=== PATIENT | male | born 1970 | race Caucasian/White ===

== ENCOUNTER 2018-06-22 14:57 | Inpatient (IN) | payer SELFPAY ==
[~2018-06-22] VITALS: Ht 185.4 cm; Wt 91.7 kg
[2018-06-22] VITALS (9 sets, daily range): BP systolic 116–165; BP diastolic 90–116
[2018-06-22] MEDS ORDERED: ONDANSETRON PF 4 MG/2 ML VIAL. IM ONE (15:15)
[2018-06-22] MEDS ORDERED: IV NORMAL SALINE 1000ML BAG 1,000 ML IV ONE (15:15)
[2018-06-22 15:28] LABS: BASO % 0 % (0-3); EOS % 0 % (0-3); LYMPH # 1.4 x10^3/uL (1.0-4.8); LYMPH % 8 % (24-48); MEAN CORPUSCULAR HEMOGLOBIN 31 pg (25-35); MEAN CORPUSCULAR HGB CONC 33 g/dL (31-37); MEAN CORPUSCULAR VOLUME 94 fL (79-100); MONO # 0.8 x10^3/uL (0.0-1.1); MONO % 5 % (0-9); NEUT # 14.5 x10^3uL (1.8-7.7); NEUT % 87 % (31-73); PLATELET COUNT 445 x10^3/uL (140-400); RED CELL DISTRIBUTION WIDTH 16.4 % (11.5-14.5); WHITE BLOOD COUNT 16.8 x10^3/uL (4.0-11.0)
[2018-06-22] MEDS ORDERED: DEXAMETHASONE SOD PHOS 4 MG/ML VIAL IV ONE (15:30)
[2018-06-22 15:32] LABS: HEMATOCRIT 17.8 % (39.0-53.0); HEMOGLOBIN 5.8 g/dL (13.0-17.5)
--- NOTE | 2018-06-22 15:32 | PHYS DOC ---
Past Medical History Past Medical History: Other Additional Past Medical Histor: KYLER'S DISEASE (TAHIRA BUNDY) Past Surgical History: Cervical Fusion, Other Additional Past Surgical Histo: KNEE (TAHIRA BUNDY) Alcohol Use: None Drug Use: None (TAHIRA BUNDY) Adult General Chief Complaint Chief Complaint: SYNCOPE HPI HPI Patient is a 47 year old male whom presents to the ED complaining of dizziness and falls over the last week. Patient's friend is at bedside with him and states he has been homeless for the last 3 weeks. States he was staying in a homeless alf. Patient has a history of Terrebonne's disease and reports he has been taking his cortef as prescribed. Friend states that he's been very depressed over the last few weeks. Has a history of bipolar and schizophrenia. Friend at bedside is concerned he may have tried to commit suicide over the last week but is unsure. Patient reports that he has been vomiting and having diarrhea for the last 2 weeks. States too many times to count. No blood in stool. Patient appears pale and is tachycardic on exam. Denies suicidal/homicidal ideation, fever, chest pain, shortness of breath, abdominal pain, head/neck injury, or use of blood thinners. (TAHIRA BUNDY) Review of Systems Review of Systems Constitutional: Denies fever or chills [] Eyes: Denies change in visual acuity, redness, or eye pain [] HENT: Denies nasal congestion or sore throat [] Respiratory: Denies cough or shortness of breath [] Cardiovascular: No additional information not addressed in HPI [] GI: Complains of vomiting and diarrhea. Denies abdominal pain, bloody stools. : Denies dysuria or hematuria [] Musculoskeletal: Denies back pain or joint pain [] Integument: Denies rash or skin lesions [] Neurologic: Denies headache, focal weakness or sensory changes [] All other systems were reviewed and found to be within normal limits, except as documented in this note. (TAHIRA BUNDY) Current Medications Current Medications Current Medications Medications (Trade) Dose Ordered Sig/Essence Start Time Stop Time Status Last Admin Dose Admin Calcium Gluconate (Calcium Gluconate) 3,000 mg 1X ONCE 06/22/18 16:00 06/22/18 16:01 Dexamethasone Sodium Phosphate (Decadron) 10 mg 1X ONCE 06/22/18 15:30 06/22/18 15:40 DC 06/22/18 15:54 10 MG Dextrose (Dextrose 50%-Water Syringe) 25 gm 1X ONCE 06/22/18 16:00 06/22/18 16:01 Info (CONTRAST GIVEN -- Rx MONITORING) 1 each PRN DAILY PRN 06/22/18 16:00 06/24/18 15:59 Insulin Human Regular (HumuLIN R VIAL) 10 unit 1X ONCE 06/22/18 16:00 06/22/18 16:01 Iohexol (Omnipaque 300 Mg/ml) 75 ml 1X ONCE 06/22/18 16:00 06/22/18 16:01 Ondansetron HCl (Zofran) 4 mg 1X ONCE 06/22/18 15:15 06/22/18 15:40 DC 06/22/18 15:54 4 MG Sodium Polystyrene Sulfonate (Kayexalate) 60 gm 1X ONCE 06/22/18 16:00 06/22/18 16:01 Sodium Bicarbonate (Sodium Bicarb Adult 8.4% Syr) 50 meq 1X ONCE 06/22/18 16:00 06/22/18 16:01 Sodium Chloride 1,000 ml @ 100 mls/hr Q10H 06/22/18 15:50 06/23/18 01:49 (BRISA XIAO MD) Allergies Allergies Allergies Coded Allergies Type Severity Reaction Last Updated Verified No Known Drug Allergies 06/22/18 No (BRISA XIAO MD) Physical Exam Physical Exam Constitutional: no acute distress, pale. [] HENT: Normocephalic, atraumatic Eyes: PERRLA, EOMI, conjunctiva normal, no discharge. [] Neck: Normal range of motion, no tenderness, supple, no stridor. [] Cardiovascular:Tachycardic, regular rhythm, no murmur [] Lungs & Thorax: Bilateral breath sounds clear to auscultation [] Abdomen: Bowel sounds normal, soft, mild diffuse abdominal tenderness, no masses, no pulsatile masses. [] Skin: Warm, dry, no erythema, no rash. [] Back: No tenderness, no CVA tenderness. [] Extremities: No tenderness, no cyanosis, no clubbing, ROM intact, no edema. [] Neurologic: Alert and oriented X 3, normal motor function, normal sensory function, no focal deficits noted. [] Psychologic: Affect normal, judgement normal, mood normal. [] (TAHIRA BUNDY) Current Patient Data Vital Signs Vital Signs Date Time Temp Pulse Resp B/P (MAP) Pulse Ox O2 Delivery O2 Flow Rate FiO2 06/22/18 15:13 97.7 113 20 145/93 (110) 91 Room Air 97.7 (BRISA XIAO MD) Lab Values Laboratory Tests Test 06/22/18 15:10 White Blood Count 16.8 x10^3/uL (4.0-11.0) H Red Blood Count 1.90 x10^6/uL (4.30-5.70) L Hemoglobin 5.8 g/dL (13.0-17.5) *L Hematocrit 17.8 % (39.0-53.0) *L Mean Corpuscular Volume 94 fL (79-100) Mean Corpuscular Hemoglobin 31 pg (25-35) Mean Corpuscular Hemoglobin Concent 33 g/dL (31-37) Red Cell Distribution Width 16.4 % (11.5-14.5) H Platelet Count 445 x10^3/uL (140-400) H Neutrophils (%) (Auto) 87 % (31-73) H Lymphocytes (%) (Auto) 8 % (24-48) L Monocytes (%) (Auto) 5 % (0-9) Eosinophils (%) (Auto) 0 % (0-3) Basophils (%) (Auto) 0 % (0-3) Neutrophils # (Auto) 14.5 x10^3uL (1.8-7.7) H Lymphocytes # (Auto) 1.4 x10^3/uL (1.0-4.8) Monocytes # (Auto) 0.8 x10^3/uL (0.0-1.1) Eosinophils # (Auto) 0.0 x10^3/uL (0.0-0.7) Basophils # (Auto) 0.0 x10^3/uL (0.0-0.2) Platelet Estimate Pending Sodium Level 139 mmol/L (136-145) Potassium Level 7.0 mmol/L (3.5-5.1) *H Chloride Level 105 mmol/L (98-107) Carbon Dioxide Level 13 mmol/L (21-32) L Anion Gap 21 (6-14) H Blood Urea Nitrogen 120 mg/dL (8-26) H Creatinine 17.8 mg/dL (0.7-1.3) H Estimated GFR (Cockcroft-Gault) 2.9 BUN/Creatinine Ratio 7 (6-20) Glucose Level 122 mg/dL (70-99) H Calcium Level 8.1 mg/dL (8.5-10.1) L Magnesium Level 2.6 mg/dL (1.8-2.4) H Total Bilirubin 0.6 mg/dL (0.2-1.0) Aspartate Amino Transferase (AST) 14 U/L (15-37) L Alanine Aminotransferase (ALT) 18 U/L (16-63) Alkaline Phosphatase 107 U/L (46-116) Troponin I Quantitative 0.111 ng/mL (0.000-0.055) Total Protein 8.0 g/dL (6.4-8.2) Albumin 2.7 g/dL (3.4-5.0) L Albumin/Globulin Ratio 0.5 (1.0-1.7) L Laboratory Tests 06/22/18 15:10 Laboratory Tests 06/22/18 15:10 (BRISA XIAO MD) Lab Values Laboratory Tests Test 06/22/18 15:10 White Blood Count 16.8 x10^3/uL (4.0-11.0) H Red Blood Count 1.90 x10^6/uL (4.30-5.70) L Hemoglobin 5.8 g/dL (13.0-17.5) *L Hematocrit 17.8 % (39.0-53.0) *L Mean Corpuscular Volume 94 fL (79-100) Mean Corpuscular Hemoglobin 31 pg (25-35) Mean Corpuscular Hemoglobin Concent 33 g/dL (31-37) Red Cell Distribution Width 16.4 % (11.5-14.5) H Platelet Count 445 x10^3/uL (140-400) H Neutrophils (%) (Auto) 87 % (31-73) H Lymphocytes (%) (Auto) 8 % (24-48) L Monocytes (%) (Auto) 5 % (0-9) Eosinophils (%) (Auto) 0 % (0-3) Basophils (%) (Auto) 0 % (0-3) Neutrophils # (Auto) 14.5 x10^3uL (1.8-7.7) H Lymphocytes # (Auto) 1.4 x10^3/uL (1.0-4.8) Monocytes # (Auto) 0.8 x10^3/uL (0.0-1.1) Eosinophils # (Auto) 0.0 x10^3/uL (0.0-0.7) Basophils # (Auto) 0.0 x10^3/uL (0.0-0.2) Segmented Neutrophils % 87 % (35-66) H Lymphocytes % 11 % (24-48) L Monocytes % 2 % (0-10) Nucleated Red Blood Cells 2 Platelet Estimate Adequate (ADEQUATE) Polychromasia Slight Anisocytosis Slight Sodium Level 139 mmol/L (136-145) Potassium Level 7.0 mmol/L (3.5-5.1) *H Chloride Level 105 mmol/L (98-107) Carbon Dioxide Level 13 mmol/L (21-32) L Anion Gap 21 (6-14) H Blood Urea Nitrogen 120 mg/dL (8-26) H Creatinine 17.8 mg/dL (0.7-1.3) H Estimated GFR (Cockcroft-Gault) 2.9 BUN/Creatinine Ratio 7 (6-20) Glucose Level 122 mg/dL (70-99) H Lactic Acid Level 3.2 mmol/L (0.4-2.0) H Calcium Level 8.1 mg/dL (8.5-10.1) L Magnesium Level 2.6 mg/dL (1.8-2.4) H Total Bilirubin 0.6 mg/dL (0.2-1.0) Aspartate Amino Transferase (AST) 14 U/L (15-37) L Alanine Aminotransferase (ALT) 18 U/L (16-63) Alkaline Phosphatase 107 U/L (46-116) Troponin I Quantitative 0.111 ng/mL (0.000-0.055) NS-Uza-X-Type Natriuretic Peptide > 68934 pg/mL (0-124) H Total Protein 8.0 g/dL (6.4-8.2) Albumin 2.7 g/dL (3.4-5.0) L Albumin/Globulin Ratio 0.5 (1.0-1.7) L Ethyl Alcohol Level < 3 mg/dL (0-10) Laboratory Tests 06/22/18 15:10 Laboratory Tests 06/22/18 15:10 (TAHIRA BUNDY) EKG EKG []EKG shows Sinus tachycardia at 113 bpm. No STEMI. (TAHIRA BUNDY) Radiology/Procedures Radiology/Procedures []PROCEDURE: CT ABDOMEN PELVIS WO CONTRAST EXAM: Abdomen and pelvis CT without intravenous contrast. HISTORY: Dizziness. Decreased appetite. TECHNIQUE: Computed tomographic images of the abdomen and pelvis were obtained without contrast. Multiplanar reformatting was performed. *One or more of the following individualized dose reduction techniques were utilized for this examination: 1. Automated exposure control. 2. Adjustment of the mA and/or kV according to patient size. 3. Use of iterative reconstruction technique. COMPARISON: 06/20/2014. FINDINGS: Evaluation of the lower thorax demonstrates small left greater than right pleural effusions and bilateral mid and lower lung interstitial infiltrate. The heart is upper normal in size to mildly enlarged. No hepatic lesion is seen on this noncontrast exam. The gallbladder, pancreas and adrenal glands are unremarkable. There is a splenule adjacent to an otherwise unremarkable spleen. The kidneys are unremarkable. The appendix is surgically absent. There are nonspecific air and fluid-filled loops of small bowel within the abdomen. There is no evidence of bowel wall thickening or obstruction. The urinary bladder is unremarkable. There is a benign sclerotic lesion within the right iliac bone. There is no lymphadenopathy. There is instrumented fusion at the lumbosacral junction. IMPRESSION: 1. Bilateral mid and lower lung interstitial infiltrate with small pleural effusions. 2. Nonspecific air and fluid-filled loops of bowel throughout the abdomen. There is no evidence of obstruction or convincing enteritis or colitis. PROCEDURE: CHEST AP ONLY EXAM: Chest, single view. HISTORY: Vomiting. Shortness of breath. COMPARISON: 12/19/2010 FINDINGS: A frontal view of the chest is obtained. There is right greater than left perihilar consolidated infiltrate. There is no pleural effusion or pneumothorax. The heart is normal in size. There is partial visualization of cervical spinal fusion instrumentation. IMPRESSION: Right greater than left perihilar consolidated infiltrate. Follow-up to confirm complete resolution and exclude underlying neoplasm. CT HEAD INDICATION: DIZZINESS COMPARISON: 12/19/2010 Exposure: One or more of the following individualized dose reduction techniques were utilized for this examination: 1. Automated exposure control 2. Adjustment of the mA and/or kV according to patient size 3. Use of iterative reconstruction technique TECHNIQUE: 5 mm contiguous axial images were obtained from the skull base to the vertex in both bone and soft tissue algorithm. FINDINGS: No abnormal attenuation within the brain parenchyma. No evidence of acute intracranial hemorrhage. No extra-axial fluid collections. No mass effect or midline shift. Ventricular size is appropriate. Basal cisterns are patent. No fractures identified.Conrad-white differentiation is preserved.Globes and orbits are within normal limits. Paranasal sinuses and mastoid air cells are clear. IMPRESSION: No acute intracranial findings. (TAHIRA BUNDY) Course & Med Decision Making Course & Med Decision Making Pertinent Labs and Imaging studies reviewed. (See chart for details) Patient presents to the ED complaining of diarrhea, vomiting, dizziness and falls over week. Patient is pale. Blood pressure is 143/80 and tachycardic around 115 bpm. Fluids and comfort measures ordered. Patient was found to have a hemoglobin of 5.8, potassium of 7 and creatinine of 17/BUN of 120. Patient has no previous history of renal failure. Call placed to nephrology, Dr. Ferrer for emergent dialysis. Interventional radiology called to have a dialysis catheter placed. Patient is going to be dialyzed emergently in ICU. Patient's potassium 7.0 was treated with hyperkalemia emergency protocol (reviewed by Dr. Niels fry). Interventional radiology came and placed dialysis catheter in the ED. Type and screen ordered, 2 units ordered and patient will be transfused in the ICU. Discussed case with hospitalist, Dr. Yancey. Requests hydrocortisone 100mg Q8hrs. Agrees to admission and further management of patient. Patient stable for admission to the ICU. Discussed consult with PAT team. States they will see patient after admission in the coming days. (TAHIRA BUNDY) Course & Med Decision Making ER PHYSICIAN ATTENDING NOTE: I have personally seen and examined the patient, and agree with the history, physical exam, and plan, as documented by mid-level provider. (BRISA XIAO MD) Dragon Disclaimer Dragon Disclaimer This electronic medical record was generated, in whole or in part, using a voice recognition dictation system. (TAHIRA BUNDY) Departure Departure Impression: Primary Impression: Hyperkalemia Additional Impressions: ARPIT (acute kidney injury) Anemia Elevated troponin Disposition: ADMITTED INPATIENT Admitting Physician: Chip Yancey (TAHIRA BUNDY) Condition: STABLE Referrals: NON,STAFF (PCP) Problem Qualifiers TAHIRA BUNDY June 22, 2018 15:32 BRISA XIAO MD June 22, 2018 16:00
[2018-06-22 15:43] LABS: ALBUMIN 2.7 g/dL (3.4-5.0); ALBUMIN/GLOBULIN RATIO 0.5 (1.0-1.7); CALCIUM 8.1 mg/dL (8.5-10.1); CREATININE 17.8 mg/dL (0.7-1.3); GFR 2.9; MAGNESIUM 2.6 mg/dL (1.8-2.4); TOTAL BILIRUBIN 0.6 mg/dL (0.2-1.0)
[2018-06-22] MEDS ORDERED: IV NORMAL SALINE 1000ML BAG 1,000 ML IV SCH ×2 (15:50)
[2018-06-22] MEDS ORDERED: DEXTROSE 50% 25 GM / 50ML DISP.SYRIN. IV ONE (16:00)
[2018-06-22] MEDS ORDERED: PIP/TAZO PER PHARMACY MC PRN (16:00)
[2018-06-22] MEDS ORDERED: INSULIN REGULAR 100 UNIT/ML 3ML VIAL. IV ONE (16:00)
[2018-06-22] MEDS ORDERED: SODIUM POLYSTYRENE SULFONATE 15 GM/60 ML ORAL.SUSP. PO ONE (16:00)
[2018-06-22] MEDS ORDERED: IOHEXOL 300 MG/ML 100ML VIAL. IV ONE (16:00)
[2018-06-22] MEDS ORDERED: SODIUM BICARB ADULT 8.4% 50 MEQ/50 ML DISP.SYRIN. IV ONE (16:00)
[2018-06-22] MEDS ORDERED: CALCIUM GLUCONATE 1,000 MG/10 ML VIAL. IVP ONE (16:00)
[2018-06-22] MEDS ORDERED: CONTRAST GIVEN. MC PRN (16:00)
--- NOTE | 2018-06-22 16:02 | EKG ---
[facility] [address] [place] [address] Test Date: 2018-06-22 Test Time: 15:09:51 Pat Name: TERENCE YARBROUGH Department: Room: Gender: [employer] Consultant: : 1970 Requested By: TAHIRA BUNDY Order Number: [id number] Reading MD: Kali Ag Measurements Intervals [place] Rate: 113 P: 43 TX: 162 QRS: 24 QRSD: 98 T: 82 QT: 330 QTc: 458 Interpretive Statements SINUS TACHYCARDIA NONSPECIFIC ST-T WAVE CHANGES. Electronically Signed On 06-23-2018 10:12:24 CDT by Kali Ag
[2018-06-22] MEDS ORDERED: LIDOCAINE WITH 8.4% SOD BICARB 3 ML DISP.SYRIN. ONE (16:10)
[2018-06-22] MEDS ORDERED: PIPERACILLIN/TAZOBACTAM 2.25 GM in IV NORMAL SALINE 50ML 50 ML IV ONE (16:15)
[2018-06-22] MEDS ORDERED: VANCOMYCIN 1.5 GM in IV NORMAL SALINE 500ML BAG 500 ML IV ONE (16:15)
[2018-06-22] MEDS ORDERED: VANCOMYCIN 1.75 GM in IV NORMAL SALINE 500ML BAG 500 ML IV ONE (16:15)
--- NOTE | 2018-06-22 16:29 | RAD ---
EXAM: Abdomen and pelvis CT without intravenous contrast. HISTORY: Dizziness. Decreased appetite. TECHNIQUE: Computed tomographic images of the abdomen and pelvis were obtained without contrast. Multiplanar reformatting was performed. *One or more of the following individualized dose reduction techniques were utilized for this examination: 1. Automated exposure control. 2. Adjustment of the mA and/or kV according to patient size. 3. Use of iterative reconstruction technique. COMPARISON: 06/20/2014. FINDINGS: Evaluation of the lower thorax demonstrates small left greater than right pleural effusions and bilateral mid and lower lung interstitial infiltrate. The heart is upper normal in size to mildly enlarged. No hepatic lesion is seen on this noncontrast exam. The gallbladder, pancreas and adrenal glands are unremarkable. There is a splenule adjacent to an otherwise unremarkable spleen. The kidneys are unremarkable. The appendix is surgically absent. There are nonspecific air and fluid-filled loops of small bowel within the abdomen. There is no evidence of bowel wall thickening or obstruction. The urinary bladder is unremarkable. There is a benign sclerotic lesion within the right iliac bone. There is no lymphadenopathy. There is instrumented fusion at the lumbosacral junction. IMPRESSION: 1. Bilateral mid and lower lung interstitial infiltrate with small pleural effusions. 2. Nonspecific air and fluid-filled loops of bowel throughout the abdomen. There is no evidence of obstruction or convincing enteritis or colitis. Electronically signed by: Maureen Dang MD (06/22/2018 4:26 PM) [place] [id number]
[2018-06-22] MEDS ORDERED: ONDANSETRON PF 4 MG/2 ML VIAL. IV PRN (16:30)
--- NOTE | 2018-06-22 16:32 | RAD ---
CT HEAD INDICATION: DIZZINESS COMPARISON: 12/19/2010 Exposure: One or more of the following individualized dose reduction techniques were utilized for this examination: 1. Automated exposure control 2. Adjustment of the mA and/or kV according to patient size 3. Use of iterative reconstruction technique TECHNIQUE: 5 mm contiguous axial images were obtained from the skull base to the vertex in both bone and soft tissue algorithm. FINDINGS: No abnormal attenuation within the brain parenchyma. No evidence of acute intracranial hemorrhage. No extra-axial fluid collections. No mass effect or midline shift. Ventricular size is appropriate. Basal cisterns are patent. No fractures identified.Conrad-white differentiation is preserved.Globes and orbits are within normal limits. Paranasal sinuses and mastoid air cells are clear. IMPRESSION: No acute intracranial findings. Electronically signed by: Dante Aden MD (06/22/2018 4:29 PM) [id number]
[2018-06-22] MEDS ORDERED: LIDOCAINE WITH 8.4% SOD BICARB 3 ML DISP.SYRIN. INJ ONE (16:45)
[2018-06-22] MEDS: HYDROCORTISONE SOD SUCC/PF 100 MG/2 ML VIAL. IV SCH ×2 (16:47→22:07)
[2018-06-22] MEDS ORDERED: HYDROCORTISONE SOD SUCC/PF 100 MG/2 ML VIAL. IV ONE (17:00)
[2018-06-22 17:40] LABS: % LYMPHS 11 % (24-48); % MONOS 2 % (0-10); % SEGS 87 % (35-66); ANISOCYTOSIS SLIGHT; NUCLEATED RBC 2; PLT ESTIMATE ADEQUATE (ADEQUATE); POLYCHROMASIA SLIGHT
[2018-06-22] MEDS: VANCOMYCIN PER PHARMACY MC PRN (17:53)
--- NOTE | 2018-06-22 17:57 | RAD ---
CHEST AP ONLY History: ER PATIENT. TEMP DIALYSIS CATHETER PLACEMENT. PRIOR XRAY. Comparison with today at 3:21 PM. There has been placement of a right IJ central venous line with tip overlying the right atrium. Perihilar infiltrates/consolidation is again seen, similar to the previous exam. Small left pleural effusion appears slightly increased since previous exam. No pneumothorax. Cardiac silhouette stable. IMPRESSION: 1. Tip of right IJ line over the right atrium. 2. Stable infiltrate/consolidation. 3. Mild increased left pleural effusion. Electronically signed by: Maciel Albert MD (06/22/2018 5:55 PM) [facility]
[2018-06-22] MEDS ORDERED: HYDR20TA PO (18:02)
[2018-06-22] MEDS ORDERED: IV NORMAL SALINE 1000ML BAG 1,000 ML IV PRN ×2 (18:15)
[2018-06-22] MEDS ORDERED: diphenhydrAMINE 50 MG/ML VIAL IV PRN ×2 (18:15)
[2018-06-22] MEDS ORDERED: DIALYSIS PATIENT. MC PRN (18:15)
--- NOTE | 2018-06-22 19:27 | PDOC1 ---
History and Physical Date of Admission: Date of Admission DATE: 06/22/18 TIME: 19:27 Chief Complaint: Problems: (1) Anemia (2) Elevated troponin (3) ARPIT (acute kidney injury) (4) Hyperkalemia Chief Complain: Syncope falls weakness depression suicidal ideation History of Present Illness: HPI: Patient is a 47 year old male whom presents to the ED complaining of dizziness and falls over the last week. Patient's friend is at bedside with him and states he has been homeless for the last 3 weeks. States he was staying in a homeless assisted. Patient has a history of Arron's disease and reports he has been taking his cortef as prescribed. Friend states that he's been very depressed over the last few weeks. Has a history of bipolar and schizophrenia. Friend at bedside is concerned he may have tried to commit suicide over the last week but is unsure. Patient reports that he has been vomiting and having diarrhea for the last 2 weeks. States too many times to count. No blood in stool. Patient appears pale and is tachycardic on exam. Denies suicidal/homicidal ideation, fever, chest pain, shortness of breath, abdominal pain, head/neck injury, or use of blood thinners. Past Medical/Surgical History: PMH/PSH: Cervical fusion and Arron's disease Allergies: Allergies: Coded Allergies: No Known Drug Allergies (Unverified , 06/22/18) Family History: Family History: Diabetes Social History: Social Hisoty: He does not drink smoke or take drugs he is currently homeless he probably has not gotten his prescription filled and has been off his meds including his prednisone and Cortef for at least couple weeks if not couple months Current Medications: Current Medications Current Medications Sodium Chloride 1,000 ml @ 1,000 mls/hr 1X ONCE IV Last administered on 06/22/18at 15:55; Start 06/22/18 at 15:15; Stop 06/22/18 at 16:14; Status DC Ondansetron HCl (Zofran) 4 mg 1X ONCE IM Last administered on 06/22/18at 15:54; Start 06/22/18 at 15:15; Stop 06/22/18 at 15:40; Status DC Dexamethasone Sodium Phosphate (Decadron) 10 mg 1X ONCE IV Last administered on 06/22/18at 15:54; Start 06/22/18 at 15:30; Stop 06/22/18 at 15:40; Status DC Iohexol (Omnipaque 300 Mg/ml) 75 ml 1X ONCE IV ; Start 06/22/18 at 16:00; Stop 06/22/18 at 16:01; Status DC Info (CONTRAST GIVEN -- Rx MONITORING) 1 each PRN DAILY PRN MC SEE COMMENTS; Start 06/22/18 at 16:00; Stop 06/24/18 at 15:59 Calcium Gluconate (Calcium Gluconate) 3,000 mg 1X ONCE IVP Last administered on 06/22/18at 16:39; Start 06/22/18 at 16:00; Stop 06/22/18 at 16:01; Status DC Sodium Bicarbonate (Sodium Bicarb Adult 8.4% Syr) 50 meq 1X ONCE IV Last a dministered on 06/22/18at 16:40; Start 06/22/18 at 16:00; Stop 06/22/18 at 16:01; Status DC Dextrose (Dextrose 50%-Water Syringe) 25 gm 1X ONCE IV Last administered on 06/22/18at 16:40; Start 06/22/18 at 16:00; Stop 06/22/18 at 16:01; Status DC Insulin Human Regular (HumuLIN R VIAL) 10 unit 1X ONCE IV Last administered on 06/22/18at 16:42; Start 06/22/18 at 16:00; Stop 06/22/18 at 16:01; Status DC Sodium Polystyrene Sulfonate (Kayexalate) 60 gm 1X ONCE PO Last administered on 06/22/18at 17:41; Start 06/22/18 at 16:00; Stop 06/22/18 at 16:01; Status DC Sodium Chloride 1,000 ml @ 1,000 mls/hr Q1H IV Last administered on 06/22/18at 17:02; Start 06/22/18 at 15:50; Stop 06/22/18 at 16:49; Status DC Sodium Chloride 1,000 ml @ 100 mls/hr Q10H IV ; Start 06/22/18 at 15:50; Stop 06/23/18 at 01:49 Vancomycin HCl (Vanco Per Pharmacy) 1 each PRN DAILY PRN MC SEE COMMENTS Last administered on 06/22/18at 17:53; Start 06/22/18 at 16:00 Piperacillin Sod/ Tazobactam Sod (Zosyn Per Pharmacy) 1 each PRN DAILY PRN MC SEE COMMENTS; Start 06/22/18 at 16:00 Piperacillin Sod/ Tazobactam Sod 2.25 gm/Sodium Chloride 50 ml @ 100 mls/hr 1X ONCE IV Last administered on 06/22/18at 16:48; Start 06/22/18 at 16:15; Stop 06/22/18 at 16:44; Status DC Vancomycin HCl 1.75 gm/Sodium Chloride 500 ml @ 250 mls/hr 1X ONCE IV ; Start 06/22/18 at 16:15; Stop 06/22/18 at 18:14; Status Cancel Vancomycin HCl 1.5 gm/Sodium Chloride 500 ml @ 250 mls/hr 1X ONCE IV Last administered on 06/22/18at 16:59; Start 06/22/18 at 16:15; Stop 06/22/18 at 18:14; Status DC Lidocaine/Sodium Bicarbonate (Buffered Lidocaine 1%) 3 ml STK-MED ONCE .ROUTE ; Start 06/22/18 at 16:10; Stop 06/22/18 at 16:11; Status DC Hydrocortisone Sodium Succinate (Solu-CORTEF) 100 mg Q8HRS IV Last administered on 06/22/18at 16:47; Start 06/22/18 at 16:30 Ondansetron HCl (Zofran) 4 mg PRN Q8HRS PRN IV NAUSEA/VOMITING; Start 06/22/18 at 16:30; Stop 06/23/18 at 16:29 Fentanyl Citrate (Fentanyl 2ml Vial) 50 mcg PRN Q1HR PRN IV PAIN; Start 06/22/18 at 16:30; Stop 06/23/18 at 16:29 Hydrocortisone Sodium Succinate (Solu-CORTEF) 100 mg 1X ONCE IV ; Start 06/22/18 at 17:00; Stop 06/22/18 at 17:00; Status DC Lidocaine/Sodium Bicarbonate (Buffered Lidocaine 1%) 5 ml 1X ONCE INJ ; Start 06/22/18 at 16:45; Stop 06/22/18 at 16:46; Status DC Piperacillin Sod/ Tazobactam Sod 2.25 gm/Sodium Chloride 50 ml @ 100 mls/hr Q8HRS IV ; Start 06/22/18 at 23:00 Vancomycin HCl (Vancomycin Random Level) 1 each 1X ONCE MC ; Start 06/23/18 at 18:00; Stop 06/23/18 at 18:01 Sodium Chloride 1,000 ml @ 1,000 mls/hr Q1H PRN IV hypotension; Start 06/22/18 at 18:15; Stop 06/23/18 at 00:14 Diphenhydramine HCl (Benadryl) 25 mg 1X PRN PRN IV ITCHING; Start 06/22/18 at 18:15; Stop 06/23/18 at 18:14 Diphenhydramine HCl (Benadryl) 25 mg 1X PRN PRN IV ITCHING; Start 06/22/18 at 18:15; Stop 06/23/18 at 18:14 Sodium Chloride 1,000 ml @ 400 mls/hr Q2H30M PRN IV PATENCY; Start 06/22/18 at 18:15; Stop 06/23/18 at 06:14 Info (PHARMACY MONITORING -- do not chart) 1 each PRN DAILY PRN MC SEE COMMENTS; Start 06/22/18 at 18:15 Active Scripts Active Reported Cortef (Hydrocortisone) 20 Mg Tablet 20 Mg PO DAILY ROS: Review of Systems Review of System REVIEW OF SYSTEMS: GENERAL: [place] of severe weakness and near syncopal episodes SKIN: No bruising, hair changes or rashes. EYES: No blurred, double or loss of vision. NOSE AND THROAT: No history of nosebleeds, hoarseness or sore throat. HEART: No history of palpitations, chest pain or shortness of breath on exertion. LUNGS: Denies cough, hemoptysis, wheezing or shortness of breath. GASTROINTESTINAL: Denies changes in appetite, nausea, vomiting, diarrhea or constipation. GENITOURINARY: No history of frequency, urgency, hesitancy or nocturia. NEUROLOGIC: Denies history of numbness, tingling, tremor or weakness. PSYCHIATRIC: Complains of depression ENDOCRINE: No history of heat or cold intolerance, polyuria or polydipsia. EXTREMITIES: Denies muscle weakness, joint pain, pain on walking or stiffness. Physical Exam: Vital Signs: Vital Signs Date Time Temp Pulse Resp B/P (MAP) Pulse Ox O2 Delivery O2 Flow Rate FiO2 06/22/18 18:36 97.8 120 20 165/106 97.8 06/22/18 18:36 93 Nasal Cannula 4.0 Physcial Exam: GEN.: He is extremely weak and pale in the ICU on emergent dialysis HEENT: Head is normocephalic, atraumatic NECK: Supple, no JVD LUNGS: He has a fine cough HEART: S1-S2 with tachycardia ABDOMEN: Decreased bowel sounds tender EXTREMITIES: Without , clubbing, or edema. Pedal pulses intact NEUROLOGIC: Very weak but cooperative PSYCHIATRIC: Seems very depressed SKIN: Skin is very pale VASCULAR: Weak capillary refill Labs: Labs: Laboratory Tests Test 06/22/18 15:10 White Blood Count 16.8 x10^3/uL (4.0-11.0) Red Blood Count 1.90 x10^6/uL (4.30-5.70) Hemoglobin 5.8 g/dL (13.0-17.5) Hematocrit 17.8 % (39.0-53.0) Mean Corpuscular Volume 94 fL (79-100) Mean Corpuscular Hemoglobin 31 pg (25-35) Mean Corpuscular Hemoglobin Concent 33 g/dL (31-37) Red Cell Distribution Width 16.4 % (11.5-14.5) Platelet Count 445 x10^3/uL (140-400) Neutrophils (%) (Auto) 87 % (31-73) Lymphocytes (%) (Auto) 8 % (24-48) Monocytes (%) (Auto) 5 % (0-9) Eosinophils (%) (Auto) 0 % (0-3) Basophils (%) (Auto) 0 % (0-3) Neutrophils # (Auto) 14.5 x10^3uL (1.8-7.7) Lymphocytes # (Auto) 1.4 x10^3/uL (1.0-4.8) Monocytes # (Auto) 0.8 x10^3/uL (0.0-1.1) Eosinophils # (Auto) 0.0 x10^3/uL (0.0-0.7) Basophils # (Auto) 0.0 x10^3/uL (0.0-0.2) Segmented Neutrophils % 87 % (35-66) Lymphocytes % 11 % (24-48) Monocytes % 2 % (0-10) Nucleated Red Blood Cells 2 Platelet Estimate Adequate (ADEQUATE) Polychromasia Slight Anisocytosis Slight Sodium Level 139 mmol/L (136-145) Potassium Level 7.0 mmol/L (3.5-5.1) Chloride Level 105 mmol/L (98-107) Carbon Dioxide Level 13 mmol/L (21-32) Anion Gap 21 (6-14) Blood Urea Nitrogen 120 mg/dL (8-26) Creatinine 17.8 mg/dL (0.7-1.3) Estimated GFR (Cockcroft-Gault) 2.9 BUN/Creatinine Ratio 7 (6-20) Glucose Level 122 mg/dL (70-99) Lactic Acid Level 3.2 mmol/L (0.4-2.0) Calcium Level 8.1 mg/dL (8.5-10.1) Magnesium Level 2.6 mg/dL (1.8-2.4) Total Bilirubin 0.6 mg/dL (0.2-1.0) Aspartate Amino Transf (AST/SGOT) 14 U/L (15-37) Alanine Aminotransferase (ALT/SGPT) 18 U/L (16-63) Alkaline Phosphatase 107 U/L (46-116) Troponin I Quantitative 0.111 ng/mL (0.000-0.055) JC-Hwh-M-Type Natriuretic Peptide > 50562 pg/mL (0-124) Total Protein 8.0 g/dL (6.4-8.2) Albumin 2.7 g/dL (3.4-5.0) Albumin/Globulin Ratio 0.5 (1.0-1.7) Ethyl Alcohol Level < 3 mg/dL (0-10) Laboratory Tests Test 06/22/18 15:10 White Blood Count 16.8 x10^3/uL (4.0-11.0) Red Blood Count 1.90 x10^6/uL (4.30-5.70) Hemoglobin 5.8 g/dL (13.0-17.5) Hematocrit 17.8 % (39.0-53.0) Mean Corpuscular Volume 94 fL (79-100) Mean Corpuscular Hemoglobin 31 pg (25-35) Mean Corpuscular Hemoglobin Concent 33 g/dL (31-37) Red Cell Distribution Width 16.4 % (11.5-14.5) Platelet Count 445 x10^3/uL (140-400) Neutrophils (%) (Auto) 87 % (31-73) Lymphocytes (%) (Auto) 8 % (24-48) Monocytes (%) (Auto) 5 % (0-9) Eosinophils (%) (Auto) 0 % (0-3) Basophils (%) (Auto) 0 % (0-3) Neutrophils # (Auto) 14.5 x10^3uL (1.8-7.7) Lymphocytes # (Auto) 1.4 x10^3/uL (1.0-4.8) Monocytes # (Auto) 0.8 x10^3/uL (0.0-1.1) Eosinophils # (Auto) 0.0 x10^3/uL (0.0-0.7) Basophils # (Auto) 0.0 x10^3/uL (0.0-0.2) Segmented Neutrophils % 87 % (35-66) Lymphocytes % 11 % (24-48) Monocytes % 2 % (0-10) Nucleated Red Blood Cells 2 Platelet Estimate Adequate (ADEQUATE) Polychromasia Slight Anisocytosis Slight Sodium Level 139 mmol/L (136-145) Potassium Level 7.0 mmol/L (3.5-5.1) Chloride Level 105 mmol/L (98-107) Carbon Dioxide Level 13 mmol/L (21-32) Anion Gap 21 (6-14) Blood Urea Nitrogen 120 mg/dL (8-26) Creatinine 17.8 mg/dL (0.7-1.3) Estimated GFR (Cockcroft-Gault) 2.9 BUN/Creatinine Ratio 7 (6-20) Glucose Level 122 mg/dL (70-99) Lactic Acid Level 3.2 mmol/L (0.4-2.0) Calcium Level 8.1 mg/dL (8.5-10.1) Magnesium Level 2.6 mg/dL (1.8-2.4) Total Bilirubin 0.6 mg/dL (0.2-1.0) Aspartate Amino Transf (AST/SGOT) 14 U/L (15-37) Alanine Aminotransferase (ALT/SGPT) 18 U/L (16-63) Alkaline Phosphatase 107 U/L (46-116) Troponin I Quantitative 0.111 ng/mL (0.000-0.055) GX-Fkg-G-Type Natriuretic Peptide > 16433 pg/mL (0-124) Total Protein 8.0 g/dL (6.4-8.2) Albumin 2.7 g/dL (3.4-5.0) Albumin/Globulin Ratio 0.5 (1.0-1.7) Ethyl Alcohol Level < 3 mg/dL (0-10) Images: Images Chest x-ray without acute changes Assessment/Plan Assessment/Plan Acute renal failure hyperkalemia probable addisonian crisis nausea vomiting diarrhea Plan Emergent dialysis Consul nephrology Consult GI ICU monitoring Frequent labs DVT prophylaxis Hydrocortisone 100 mg IV every 8 Full code Prognosis guarded Total time 32 minutes This is a critically ill patient SILVANO HARDY III DO June 22, 2018 19:27
[2018-06-22 21:19] LABS: PROTHROMBIN TIME PATIENT 14.1 SEC (11.7-14.0)
[2018-06-22] MEDS: fentaNYL PF VIAL 100 MCG/2 ML VIAL IV PRN (23:01)
[2018-06-22] MEDS: PIPERACILLIN/TAZOBACTAM 2.25 GM in IV NORMAL SALINE 50ML 50 ML IV SCH (23:12)
[2018-06-23] VITALS (22 sets, daily range): BP systolic 119–150; BP diastolic 71–95
[2018-06-23] MEDS: fentaNYL PF VIAL 100 MCG/2 ML VIAL IV PRN ×3 (01:23→08:21)
[2018-06-23 05:27] LABS: AMPHETAMINE/METHAMPHETAMINE NEG (NEG); BARBITURATES NEG (NEG); BENZODIAZEPINES POS (NEG); CANNABINOIDS NEG (NEG); COCAINE NEG (NEG); METHADONE NEG (NEG); OPIATES POS (NEG); PHENCYCLIDINE NEG (NEG)
[2018-06-23 05:40] LABS: BASO % 0 % (0-3); EOS % 0 % (0-3); LYMPH # 1.3 x10^3/uL (1.0-4.8); LYMPH % 9 % (24-48); MEAN CORPUSCULAR HEMOGLOBIN 31 pg (25-35); MEAN CORPUSCULAR HGB CONC 34 g/dL (31-37); MEAN CORPUSCULAR VOLUME 90 fL (79-100); MONO # 0.8 x10^3/uL (0.0-1.1); MONO % 6 % (0-9); NEUT % 85 % (31-73); PLATELET COUNT 378 x10^3/uL (140-400); RED BLOOD COUNT 2.08 x10^6/uL (4.30-5.70); RED CELL DISTRIBUTION WIDTH 16.4 % (11.5-14.5); WHITE BLOOD COUNT 14.1 x10^3/uL (4.0-11.0)
[2018-06-23 05:42] LABS: BILIRUBIN,URINE NEGATIVE (NEG); CLARITY,URINE CLEAR; COLOR,URINE YELLOW; NITRITE,URINE NEGATIVE (NEG); PROTEIN,URINE >=300 mg/dL (NEG-TRACE); UROBILINOGEN,URINE 0.2 mg/dL (0.2 mg/dL)
[2018-06-23 05:46] LABS: HEMOGLOBIN 6.4 g/dL (13.0-17.5)
[2018-06-23 05:47] LABS: HEMATOCRIT 18.8 % (39.0-53.0)
[2018-06-23] MEDS: HYDROCORTISONE SOD SUCC/PF 100 MG/2 ML VIAL. IV SCH ×3 (06:16→21:42)
[2018-06-23] MEDS: PIPERACILLIN/TAZOBACTAM 2.25 GM in IV NORMAL SALINE 50ML 50 ML IV SCH ×3 (06:16→21:42)
[2018-06-23 06:52] LABS: RBC,URINE >40 /HPF (0-2)
[2018-06-23 06:53] LABS: AMORPHOUS SEDIMENT,UR PRESENT /HPF; BACTERIA,URINE FEW /HPF (0-FEW); HYALINE CASTS, URINE MODERATE /HPF; SQUAMOUS EPITHELIAL CELL,UR FEW /LPF
[2018-06-23] MEDS ORDERED: OLAN20TA15 PO (07:18)
[2018-06-23 07:38] LABS: CALCIUM 7.3 mg/dL (8.5-10.1); CREATININE 9.1 mg/dL (0.7-1.3); GFR 6.3; MAGNESIUM 1.8 mg/dL (1.8-2.4)
[2018-06-23] MEDS ORDERED: OXYC5CAP PO (07:42)
[2018-06-23] MEDS ORDERED: BUPR1FIL5 SL (07:50)
[2018-06-23] MEDS ORDERED: MULT1TAB52 PO (08:25)
[2018-06-23] MEDS ORDERED: CYAN10005 PO (08:25)
--- NOTE | 2018-06-23 08:25 | RAD ---
Procedure: Ultrasound-guided placement of right internal jugular temporary dialysis catheter06/23/2018 8:21 AM Clinical Indication: Renal failure Discussion: The risks and benefits of the procedure were discussed the patient and/or their patient portal representative. Informed consent was obtained. A timeout procedure was performed. All elements of maximal sterile barrier technique including the use of a cap, mask, sterile gown, sterile gloves, large sterile sheet, appropriate hand hygiene, and 2% chlorhexidine for cutaneous antisepsis (or acceptable alternative antiseptic per current guidelines) were followed for this procedure. The patient was prepped and draped in the usual sterile fashion. Ultrasound interrogation of the right neck revealed patency and compressibility of the right internal jugular vein. A 21-gauge micropuncture was then used to gain access to this vein under ultrasound guidance. A hard copy ultrasound image was recorded. A guidewire was advanced centrally. 5 Vincentian sheath was placed. Over a wire following dilatation, a dual-lumen temporary dialysis catheter was advanced centrally. The Catheter was found to flush and aspirate normally. Follow-up chest radiograph demonstrates tip at the cavoatrial junction. Catheter secured in place and a sterile dressing was applied. No immediate complications were identified. Impression: Successful ultrasound-guided placement of right internal jugular temporary dialysis catheter
[2018-06-23] MEDS ORDERED: IV NORMAL SALINE 1000ML BAG 1,000 ML IV SCH (09:00)
--- NOTE | 2018-06-23 09:26 | PDOC2 ---
CONSULT Date of Consult Date of Consult DATE: 06/23/18 TIME: 09:17 Reason for Consult Reason for Consult: ARPIT , Hyperkalemia Identification/Chief Complaint Chief Complaint "Not feeling good" Source Source: Chart review, Patient History of Present Illness Reason for Visit: Patient is a 47 year old CM presented to the ED complaining of dizziness and falls over the last week. Patient has been homeless for the last 3 weeks. States he was staying in a homeless senior living. He has a history of [place]'s disease and has been taking his Cortef as prescribed.He has a history of bipolar and schizophrenia. Patient reports that he has been vomiting(few times) and having diarrhea for the last 2 weeks. States too many times to count. No blood in stool. Denies fever, chest pain, shortness of breath, abdominal pain, head/neck injury. Denies any urinary complaints . He states he has normal uop prior to coming to ED Denies any Kidney problems in past . No gross hematuria He saw his PCP approx 1 month ago( [facility]), reports labs were ok. He is not sure about his meds Denies ay NSAID's or pain meds or any other OTC supplements . Denies any Hx of Kidney stone. He states he still having diarrhea Current Problem List Problem List Problems Medical Problems: (1) ARPIT (acute kidney injury) Status: Acute (2) Anemia Status: Acute (3) Elevated troponin Status: Acute (4) Hyperkalemia Status: Acute Current Medications Current Medications Current Medications Sodium Chloride 1,000 ml @ 1,000 mls/hr 1X ONCE IV Last administered on 06/22/18at 15:55; Start 06/22/18 at 15:15; Stop 06/22/18 at 16:14; Status DC Ondansetron HCl (Zofran) 4 mg 1X ONCE IM Last administered on 06/22/18at 15:54; Start 06/22/18 at 15:15; Stop 06/22/18 at 15:40; Status DC Dexamethasone Sodium Phosphate (Decadron) 10 mg 1X ONCE IV Last administered on 06/22/18at 15:54; Start 06/22/18 at 15:30; Stop 06/22/18 at 15:40; Status DC Iohexol (Omnipaque 300 Mg/ml) 75 ml 1X ONCE IV Last administered on 06/22/18at 16:00; Start 06/22/18 at 16:00; Stop 06/22/18 at 16:01; Status DC Info (CONTRAST GIVEN -- Rx MONITORING) 1 each PRN DAILY PRN MC SEE COMMENTS; Start 06/22/18 at 16:00; Stop 06/24/18 at 15:59 Calcium Gluconate (Calcium Gluconate) 3,000 mg 1X ONCE IVP Last administered on 06/22/18at 16:39; Start 06/22/18 at 16:00; Stop 06/22/18 at 16:01; Status DC Sodium Bicarbonate (Sodium Bicarb Adult 8.4% Syr) 50 meq 1X ONCE IV Last administered on 06/22/18at 16:40; Start 06/22/18 at 16:00; Stop 06/22/18 at 16:01; Status DC Dextrose (Dextrose 50%-Water Syringe) 25 gm 1X ONCE IV Last administered on 06/22/18at 16:40; Start 06/22/18 at 16:00; Stop 06/22/18 at 16:01; Status DC Insulin Human Regular (HumuLIN R VIAL) 10 unit 1X ONCE IV Last administered on 06/22/18at 16:42; Start 06/22/18 at 16:00; Stop 06/22/18 at 16:01; Status DC Sodium Polystyrene Sulfonate (Kayexalate) 60 gm 1X ONCE PO Last administered on 06/22/18at 17:41; Start 06/22/18 at 16:00; Stop 06/22/18 at 16:01; Status DC Sodium Chloride 1,000 ml @ 1,000 mls/hr Q1H IV Last administered on 06/22/18at 17:02; Start 06/22/18 at 15:50; Stop 06/22/18 at 16:49; Status DC Sodium Chloride 1,000 ml @ 100 mls/hr Q10H IV Last administered on 06/22/18at 22:08; Start 06/22/18 at 15:50; Stop 06/23/18 at 01:49; Status DC Vancomycin HCl (Vanco Per Pharmacy) 1 each PRN DAILY PRN MC SEE COMMENTS Last administered on 06/22/18at 17:53; Start 06/22/18 at 16:00 Piperacillin Sod/ Tazobactam Sod (Zosyn Per Pharmacy) 1 each PRN DAILY PRN MC SEE COMMENTS; Start 06/22/18 at 16:00 Piperacillin Sod/ Tazobactam Sod 2.25 gm/Sodium Chloride 50 ml @ 100 mls/hr 1X ONCE IV Last administered on 06/22/18at 16:48; Start 06/22/18 at 16:15; Stop 06/22/18 at 16:44; Status DC Vancomycin HCl 1.75 gm/Sodium Chloride 500 ml @ 250 mls/hr 1X ONCE IV ; Start 06/22/18 at 16:15; Stop 06/22/18 at 18:14; Status Cancel Vancomycin HCl 1.5 gm/Sodium Chloride 500 ml @ 250 mls/hr 1X ONCE IV Last administered on 06/22/18at 16:59; Start 06/22/18 at 16:15; Stop 06/22/18 at 18:14; Status DC Lidocaine/Sodium Bicarbonate (Buffered Lidocaine 1%) 3 ml STK-MED ONCE .ROUTE ; Start 06/22/18 at 16:10; Stop 06/22/18 at 16:11; Status DC Hydrocortisone Sodium Succinate (Solu-CORTEF) 100 mg Q8HRS IV Last administered on 06/23/18at 06:16; Start 06/22/18 at 16:30 Ondansetron HCl (Zofran) 4 mg PRN Q8HRS PRN IV NAUSEA/VOMITING; Start 06/22/18 at 16:30; Stop 06/23/18 at 16:29 Fentanyl Citrate (Fentanyl 2ml Vial) 50 mcg PRN Q1HR PRN IV PAIN Last administered on 06/23/18at 08:21; Start 06/22/18 at 16:30; Stop 06/23/18 at 16:29 Hydrocortisone Sodium Succinate (Solu-CORTEF) 100 mg 1X ONCE IV ; Start 06/22/18 at 17:00; Stop 06/22/18 at 17:00; Status DC Lidocaine/Sodium Bicarbonate (Buffered Lidocaine 1%) 5 ml 1X ONCE INJ Last administered on 06/22/18at 16:45; Start 06/22/18 at 16:45; Stop 06/22/18 at 16:46; Status DC Piperacillin Sod/ Tazobactam Sod 2.25 gm/Sodium Chloride 50 ml @ 100 mls/hr Q8HRS IV Last administered on 06/23/18at 06:16; Start 06/22/18 at 23:00 Vancomycin HCl (Vancomycin Random Level) 1 each 1X ONCE MC ; Start 06/23/18 at 18:00; Stop 06/23/18 at 18:01 Sodium Chloride 1,000 ml @ 1,000 mls/hr Q1H PRN IV hypotension; Start 06/22/18 at 18:15; Stop 06/23/18 at 00:14; Status DC Diphenhydramine HCl (Benadryl) 25 mg 1X PRN PRN IV ITCHING; Start 06/22/18 at 18:15; Stop 06/23/18 at 18:14 Diphenhydramine HCl (Benadryl) 25 mg 1X PRN PRN IV ITCHING; Start 06/22/18 at 18:15; Stop 06/23/18 at 18:14 Sodium Chloride 1,000 ml @ 400 mls/hr Q2H30M PRN IV PATENCY; Start 06/22/18 at 18:15; Stop 06/23/18 at 06:14; Status DC Info (PHARMACY MONITORING -- do not chart) 1 each PRN DAILY PRN MC SEE COMMENTS; Start 06/22/18 at 18:15 Sodium Chloride 1,000 ml @ 100 mls/hr Q10H IV Last administered on 06/23/18at 08:48; Start 06/23/18 at 09:00 Active Scripts Active Reported Multivitamins (Multivitamin) 1 Each Tablet 1 Tab PO DAILY Vitamin B-12 (Cyanocobalamin (Vitamin B-12)) 1,000 Mcg Tablet 1 Tab PO DAILY Olanzapine 20 Mg Tablet 20 Mg PO QHS Cortef (Hydrocortisone) 20 Mg Tablet 20 Mg PO DAILY Allergies Allergies: Coded Allergies: No Known Drug Allergies (Unverified , 06/22/18) ROS Review of System As per HPI Physical Exam Physical Exam GEN: NAD HEEN: OM moist NECK: supple CVS: RRR, No rub RESP:CTA Bilat, No Acc. Muscle Use GI: BS + ve, NO Bruit, Non Tender : No CVA tenderness, No Suprapubic Tenderness, No Pete NEURO- Grossly normal, SKIN- No rash or lesions EXT- No Edema Vital Signs Vital Signs Date Time Temp Pulse Resp B/P (MAP) Pulse Ox O2 Delivery O2 Flow Rate FiO2 06/23/18 08:46 15 95 Nasal Cannula 4.0 06/23/18 08:25 99.2 98 139/92 99.2 Assessment & Plan ARPIT - ATN sec to Severe GI symptoms Emergent Dialysis last evening , ? Oliguric , Doesn't have Pete Will get Bladder scan E-Lytes and Fluid status stable, No emergent indication for HD today Ct scan- Kidneys unremarkable , Ordered Renal US, Ur Pr/Cr, CPK Monitor , Strict I/O Microscopic Hematuria - Non Pete sample Proteinuria + , Few WBC's ,Check Pr/Cr ratio , Renal US CT Kidneys Normal, Repeat UA tomorrow am, may need w/u for GN, monitor Urology Consult Hyperkalemia- Dialyzed last night K Normal today Vomiting/Diarrhea- still having Dialrrhea GI Consulted Anemia- Hgb very low Per primary [place] disease - Pt not sure if he is on meds Not Hypotensive , No abdominal pain Defer to primary Discussed with pt and RN Labs Labs Laboratory Tests Test 06/22/18 15:10 06/22/18 19:45 06/22/18 21:00 06/23/18 04:15 White Blood Count 16.8 x10^3/uL (4.0-11.0) 14.1 x10^3/uL (4.0-11.0) Red Blood Count 1.90 x10^6/uL (4.30-5.70) 2.08 x10^6/uL (4.30-5.70) Hemoglobin 5.8 g/dL (13.0-17.5) 6.4 g/dL (13.0-17.5) Hematocrit 17.8 % (39.0-53.0) 18.8 % (39.0-53.0) Mean Corpuscular Volume 94 fL (79-100) 90 fL (79-100) Mean Corpuscular Hemoglobin 31 pg (25-35) 31 pg (25-35) Mean Corpuscular Hemoglobin Concent 33 g/dL (31-37) 34 g/dL (31-37) Red Cell Distribution Width 16.4 % (11.5-14.5) 16.4 % (11.5-14.5) Platelet Count 445 x10^3/uL (140-400) 343 x10^3/uL (140-400) 378 x10^3/uL (140-400) Neutrophils (%) (Auto) 87 % (31-73) 85 % (31-73) Lymphocytes (%) (Auto) 8 % (24-48) 9 % (24-48) Monocytes (%) (Auto) 5 % (0-9) 6 % (0-9) Eosinophils (%) (Auto) 0 % (0-3) 0 % (0-3) Basophils (%) (Auto) 0 % (0-3) 0 % (0-3) Neutrophils # (Auto) 14.5 x10^3uL (1.8-7.7) 12.0 x10^3uL (1.8-7.7) Lymphocytes # (Auto) 1.4 x10^3/uL (1.0-4.8) 1.3 x10^3/uL (1.0-4.8) Monocytes # (Auto) 0.8 x10^3/uL (0.0-1.1) 0.8 x10^3/uL (0.0-1.1) Eosinophils # (Auto) 0.0 x10^3/uL (0.0-0.7) 0.0 x10^3/uL (0.0-0.7) Basophils # (Auto) 0.0 x10^3/uL (0.0-0.2) 0.0 x10^3/uL (0.0-0.2) Segmented Neutrophils % 87 % (35-66) Lymphocytes % 11 % (24-48) Monocytes % 2 % (0-10) Nucleated Red Blood Cells 2 Platelet Estimate Adequate (ADEQUATE) Polychromasia Slight Anisocytosis Slight Sodium Level 139 mmol/L (136-145) 140 mmol/L (136-145) Potassium Level 7.0 mmol/L (3.5-5.1) 4.0 mmol/L (3.5-5.1) Chloride Level 105 mmol/L (98-107) 101 mmol/L (98-107) Carbon Dioxide Level 13 mmol/L (21-32) 26 mmol/L (21-32) Anion Gap 21 (6-14) 13 (6-14) Blood Urea Nitrogen 120 mg/dL (8-26) 58 mg/dL (8-26) Creatinine 17.8 mg/dL (0.7-1.3) 9.1 mg/dL (0.7-1.3) Estimated GFR (Cockcroft-Gault) 2.9 6.3 BUN/Creatinine Ratio 7 (6-20) Glucose Level 122 mg/dL (70-99) 113 mg/dL (70-99) Lactic Acid Level 3.2 mmol/L (0.4-2.0) 1.1 mmol/L (0.4-2.0) Calcium Level 8.1 mg/dL (8.5-10.1) 7.3 mg/dL (8.5-10.1) Magnesium Level 2.6 mg/dL (1.8-2.4) 1.8 mg/dL (1.8-2.4) Total Bilirubin 0.6 mg/dL (0.2-1.0) Aspartate Amino Transf (AST/SGOT) 14 U/L (15-37) Alanine Aminotransferase (ALT/SGPT) 18 U/L (16-63) Alkaline Phosphatase 107 U/L (46-116) Troponin I Quantitative 0.111 ng/mL (0.000-0.055) 0.160 ng/mL (0.000-0.055) KU-[id number]-K-Type Natriuretic Peptide > 19853 pg/mL (0-124) Total Protein 8.0 g/dL (6.4-8.2) Albumin 2.7 g/dL (3.4-5.0) Albumin/Globulin Ratio 0.5 (1.0-1.7) Ethyl Alcohol Level < 3 mg/dL (0-10) Hepatitis B Surface Antigen Reactive (Nonreactive) Prothrombin Time 14.1 SEC (11.7-14.0) Prothromb Time International Ratio 1.1 (0.8-1.1) Phosphorus Level 8.0 mg/dL (2.6-4.7) Test 06/23/18 05:00 Urine Collection Type Unknown Urine Color Yellow Urine Clarity Clear Urine pH 7.0 Urine Specific Mobile 1.015 Urine Protein >=300 mg/dL (NEG-TRACE) Urine Glucose (UA) Negative mg/dL (NEG) Urine Ketones (Stick) Trace mg/dL (NEG) Urine Blood Large (NEG) Urine Nitrite Negative (NEG) Urine Bilirubin Negative (NEG) Urine Urobilinogen Dipstick 0.2 mg/dL (0.2 mg/dL) Urine Leukocyte Esterase Small (NEG) Urine RBC >40 /HPF (0-2) Urine WBC 11-20 /HPF (0-4) Urine Squamous Epithelial Cells Few /LPF Urine Amorphous Sediment Present /HPF Urine Bacteria Few /HPF (0-FEW) Urine Hyaline Casts Moderate /HPF Urine Opiates Screen Pos (NEG) Urine Methadone Screen Neg (NEG) Urine Barbiturates Neg (NEG) Urine Phencyclidine Screen Neg (NEG) Urine Amphetamine/Methamphetamine Neg (NEG) Urine Benzodiazepines Screen Pos (NEG) Urine Cocaine Screen Neg (NEG) Urine Cannabinoids Screen Neg (NEG) Urine Ethyl Alcohol Neg (NEG) Laboratory Tests Test 06/22/18 15:10 06/22/18 19:45 06/22/18 21:00 06/23/18 04:15 White Blood Count 16.8 x10^3/uL (4.0-11.0) 14.1 x10^3/uL (4.0-11.0) Red Blood Count 1.90 x10^6/uL (4.30-5.70) 2.08 x10^6/uL (4.30-5.70) Hemoglobin 5.8 g/dL (13.0-17.5) 6.4 g/dL (13.0-17.5) Hematocrit 17.8 % (39.0-53.0) 18.8 % (39.0-53.0) Mean Corpuscular Volume 94 fL (79-100) 90 fL (79-100) Mean Corpuscular Hemoglobin 31 pg (25-35) 31 pg (25-35) Mean Corpuscular Hemoglobin Concent 33 g/dL (31-37) 34 g/dL (31-37) Red Cell Distribution Width 16.4 % (11.5-14.5) 16.4 % (11.5-14.5) Platelet Count 445 x10^3/uL (140-400) 343 x10^3/uL (140-400) 378 x10^3/uL (140-400) Neutrophils (%) (Auto) 87 % (31-73) 85 % (31-73) Lymphocytes (%) (Auto) 8 % (24-48) 9 % (24-48) Monocytes (%) (Auto) 5 % (0-9) 6 % (0-9) Eosinophils (%) (Auto) 0 % (0-3) 0 % (0-3) Basophils (%) (Auto) 0 % (0-3) 0 % (0-3) Neutrophils # (Auto) 14.5 x10^3uL (1.8-7.7) 12.0 x10^3uL (1.8-7.7) Lymphocytes # (Auto) 1.4 x10^3/uL (1.0-4.8) 1.3 x10^3/uL (1.0-4.8) Monocytes # (Auto) 0.8 x10^3/uL (0.0-1.1) 0.8 x10^3/uL (0.0-1.1) Eosinophils # (Auto) 0.0 x10^3/uL (0.0-0.7) 0.0 x10^3/uL (0.0-0.7) Basophils # (Auto) 0.0 x10^3/uL (0.0-0.2) 0.0 x10^3/uL (0.0-0.2) Segmented Neutrophils % 87 % (35-66) Lymphocytes % 11 % (24-48) Monocytes % 2 % (0-10) Nucleated Red Blood Cells 2 Platelet Estimate Adequate (ADEQUATE) Polychromasia Slight Anisocytosis Slight Sodium Level 139 mmol/L (136-145) 140 mmol/L (136-145) Potassium Level 7.0 mmol/L (3.5-5.1) 4.0 mmol/L (3.5-5.1) Chloride Level 105 mmol/L (98-107) 101 mmol/L (98-107) Carbon Dioxide Level 13 mmol/L (21-32) 26 mmol/L (21-32) Anion Gap 21 (6-14) 13 (6-14) Blood Urea Nitrogen 120 mg/dL (8-26) 58 mg/dL (8-26) Creatinine 17.8 mg/dL (0.7-1.3) 9.1 mg/dL (0.7-1.3) Estimated GFR (Cockcroft-Gault) 2.9 6.3 BUN/Creatinine Ratio 7 (6-20) Glucose Level 122 mg/dL (70-99) 113 mg/dL (70-99) Lactic Acid Level 3.2 mmol/L (0.4-2.0) 1.1 mmol/L (0.4-2.0) Calcium Level 8.1 mg/dL (8.5-10.1) 7.3 mg/dL (8.5-10.1) Magnesium Level 2.6 mg/dL (1.8-2.4) 1.8 mg/dL (1.8-2.4) Total Bilirubin 0.6 mg/dL (0.2-1.0) Aspartate Amino Transf (AST/SGOT) 14 U/L (15-37) Alanine Aminotransferase (ALT/SGPT) 18 U/L (16-63) Alkaline Phosphatase 107 U/L (46-116) Troponin I Quantitative 0.111 ng/mL (0.000-0.055) 0.160 ng/mL (0.000-0.055) TC-Cgc-V-Type Natriuretic Peptide > 26283 pg/mL (0-124) Total Protein 8.0 g/dL (6.4-8.2) Albumin 2.7 g/dL (3.4-5.0) Albumin/Globulin Ratio 0.5 (1.0-1.7) Ethyl Alcohol Level < 3 mg/dL (0-10) Hepatitis B Surface Antigen Reactive (Nonreactive) Prothrombin Time 14.1 SEC (11.7-14.0) Prothromb Time International Ratio 1.1 (0.8-1.1) Phosphorus Level 8.0 mg/dL (2.6-4.7) Test 06/23/18 05:00 Urine Collection Type Unknown Urine Color Yellow Urine Clarity Clear Urine pH 7.0 Urine Specific Mobile 1.015 Urine Protein >=300 mg/dL (NEG-TRACE) Urine Glucose (UA) Negative mg/dL (NEG) Urine Ketones (Stick) Trace mg/dL (NEG) Urine Blood Large (NEG) Urine Nitrite Negative (NEG) Urine Bilirubin Negative (NEG) Urine Urobilinogen Dipstick 0.2 mg/dL (0.2 mg/dL) Urine Leukocyte Esterase Small (NEG) Urine RBC >40 /HPF (0-2) Urine WBC 11-20 /HPF (0-4) Urine Squamous Epithelial Cells Few /LPF Urine Amorphous Sediment Present /HPF Urine Bacteria Few /HPF (0-FEW) Urine Hyaline Casts Moderate /HPF Urine Opiates Screen Pos (NEG) Urine Methadone Screen Neg (NEG) Urine Barbiturates Neg (NEG) Urine Phencyclidine Screen Neg (NEG) Urine Amphetamine/Methamphetamine Neg (NEG) Urine Benzodiazepines Screen Pos (NEG) Urine Cocaine Screen Neg (NEG) Urine Cannabinoids Screen Neg (NEG) Urine Ethyl Alcohol Neg (NEG) Review All relevant outside records, renal labs, imaging studies, telemetry/EKG's were reviewed. Images Images CxR-- MPRESSION: 1. Tip of right IJ line over the right atrium. 2. Stable infiltrate/consolidation. 3. Mild increased left pleural effusion. CT scan abdomen-- Evaluation of the lower thorax demonstrates small left greater than right pleural effusions and bilateral mid and lower lung interstitial infiltrate. The heart is upper normal in size to mildly enlarged. No hepatic lesion is seen on this noncontrast exam. The gallbladder, pancreas and adrenal glands are unremarkable. There is a splenule adjacent to an otherwise unremarkable spleen. The kidneys are unremarkable. The appendix is surgically absent. There are nonspecific air and fluid-filled loops of small bowel within the abdomen. There is no evidence of bowel wall thickening or obstruction. The urinary bladder is unremarkable. There is a benign sclerotic lesion within the right iliac bone. There is no lymphadenopathy. There is instrumented fusion at the lumbosacral junction. IMPRESSION: 1. Bilateral mid and lower lung interstitial infiltrate with small pleural effusions. 2. Nonspecific air and fluid-filled loops of bowel throughout the abdomen. There is no evidence of obstruction or convincing enteritis or colitis. EDEL ADKINS MD June 23, 2018 09:26
--- NOTE | 2018-06-23 09:38 | PDOC ---
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 Nephrology consulted Hyperkalemia - Dialyzed last night Vomiting/Diarrhea - improved after dialysis Anemia - getting blood now Schizophrenia - cont home meds Smoker - advised to quit History of Present Illness History of Present Illness Patient is a 47 year old male whom presents to the ED complaining of dizziness and falls over the last week. Patient has been homeless for the last 3 weeks. States he was staying in a homeless long-term. 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 Patient reports that he has been vomiting and having diarrhea for the last 2 weeks and has been dizzy and light-headed at work. Denies fever, chest pain, shortness of breath, abdominal pain, head/neck injury. Denies any urinary complaints. No sick contacts Hb 5.4, Cr 9, admitted to ICU. RIJ HD catheter placed by IR urgently yesterday and dialyzed. Utox positive for benzos and opioids. K normalized. BUN < 60. He is still feeling poorly. UOP only 100cc overnight. Plan: Bladder scan PVR Cont blood transfusion D/w nephrology, next dialysis tomorrow Cont high dose steroids for addisonian crisis Vitals Vitals Vital Signs Date Time Temp Pulse Resp B/P (MAP) Pulse Ox O2 Delivery O2 Flow Rate FiO2 06/23/18 08:46 15 95 Nasal Cannula 4.0 06/23/18 08:25 99.2 98 139/92 99.2 Physical Exam General: Alert, Cooperative Heart: Regular rate, Normal S1, Normal S2 Lungs: Wheezing Abdomen: Normal bowel sounds, Soft, No tenderness, No hepatosplenomegaly Extremities: No clubbing, No cyanosis Skin: No rashes, No breakdown Labs LABS Laboratory Tests Test 06/22/18 15:10 06/22/18 19:45 06/22/18 21:00 06/23/18 04:15 White Blood Count 16.8 x10^3/uL (4.0-11.0) 14.1 x10^3/uL (4.0-11.0) Red Blood Count 1.90 x10^6/uL (4.30-5.70) 2.08 x10^6/uL (4.30-5.70) Hemoglobin 5.8 g/dL (13.0-17.5) 6.4 g/dL (13.0-17.5) Hematocrit 17.8 % (39.0-53.0) 18.8 % (39.0-53.0) Mean Corpuscular Volume 94 fL (79-100) 90 fL (79-100) Mean Corpuscular Hemoglobin 31 pg (25-35) 31 pg (25-35) Mean Corpuscular Hemoglobin Concent 33 g/dL (31-37) 34 g/dL (31-37) Red Cell Distribution Width 16.4 % (11.5-14.5) 16.4 % (11.5-14.5) Platelet Count 445 x10^3/uL (140-400) 343 x10^3/uL (140-400) 378 x10^3/uL (140-400) Neutrophils (%) (Auto) 87 % (31-73) 85 % (31-73) Lymphocytes (%) (Auto) 8 % (24-48) 9 % (24-48) Monocytes (%) (Auto) 5 % (0-9) 6 % (0-9) Eosinophils (%) (Auto) 0 % (0-3) 0 % (0-3) Basophils (%) (Auto) 0 % (0-3) 0 % (0-3) Neutrophils # (Auto) 14.5 x10^3uL (1.8-7.7) 12.0 x10^3uL (1.8-7.7) Lymphocytes # (Auto) 1.4 x10^3/uL (1.0-4.8) 1.3 x10^3/uL (1.0-4.8) Monocytes # (Auto) 0.8 x10^3/uL (0.0-1.1) 0.8 x10^3/uL (0.0-1.1) Eosinophils # (Auto) 0.0 x10^3/uL (0.0-0.7) 0.0 x10^3/uL (0.0-0.7) Basophils # (Auto) 0.0 x10^3/uL (0.0-0.2) 0.0 x10^3/uL (0.0-0.2) Segmented Neutrophils % 87 % (35-66) Lymphocytes % 11 % (24-48) Monocytes % 2 % (0-10) Nucleated Red Blood Cells 2 Platelet Estimate Adequate (ADEQUATE) Polychromasia Slight Anisocytosis Slight Sodium Level 139 mmol/L (136-145) 140 mmol/L (136-145) Potassium Level 7.0 mmol/L (3.5-5.1) 4.0 mmol/L (3.5-5.1) Chloride Level 105 mmol/L (98-107) 101 mmol/L (98-107) Carbon Dioxide Level 13 mmol/L (21-32) 26 mmol/L (21-32) Anion Gap 21 (6-14) 13 (6-14) Blood Urea Nitrogen 120 mg/dL (8-26) 58 mg/dL (8-26) Creatinine 17.8 mg/dL (0.7-1.3) 9.1 mg/dL (0.7-1.3) Estimated GFR (Cockcroft-Gault) 2.9 6.3 BUN/Creatinine Ratio 7 (6-20) Glucose Level 122 mg/dL (70-99) 113 mg/dL (70-99) Lactic Acid Level 3.2 mmol/L (0.4-2.0) 1.1 mmol/L (0.4-2.0) Calcium Level 8.1 mg/dL (8.5-10.1) 7.3 mg/dL (8.5-10.1) Magnesium Level 2.6 mg/dL (1.8-2.4) 1.8 mg/dL (1.8-2.4) Total Bilirubin 0.6 mg/dL (0.2-1.0) Aspartate Amino Transf (AST/SGOT) 14 U/L (15-37) Alanine Aminotransferase (ALT/SGPT) 18 U/L (16-63) Alkaline Phosphatase 107 U/L (46-116) Troponin I Quantitative 0.111 ng/mL (0.000-0.055) 0.160 ng/mL (0.000-0.055) JA-[id number]-[id number]-Type Natriuretic Peptide > 11639 pg/mL (0-124) Total Protein 8.0 g/dL (6.4-8.2) Albumin 2.7 g/dL (3.4-5.0) Albumin/Globulin Ratio 0.5 (1.0-1.7) Ethyl Alcohol Level < 3 mg/dL (0-10) Hepatitis B Surface Antigen Reactive (Nonreactive) Prothrombin Time 14.1 SEC (11.7-14.0) Prothromb Time International Ratio 1.1 (0.8-1.1) Phosphorus Level 8.0 mg/dL (2.6-4.7) Test 06/23/18 05:00 Urine Collection Type Unknown Urine Color Yellow Urine Clarity Clear Urine pH 7.0 Urine Specific [place] 1.015 Urine Protein >=300 mg/dL (NEG-TRACE) Urine Glucose (UA) Negative mg/dL (NEG) Urine Ketones (Stick) Trace mg/dL (NEG) Urine Blood Large (NEG) Urine Nitrite Negative (NEG) Urine Bilirubin Negative (NEG) Urine Urobilinogen Dipstick 0.2 mg/dL (0.2 mg/dL) Urine Leukocyte Esterase Small (NEG) Urine RBC >40 /HPF (0-2) Urine WBC 11-20 /HPF (0-4) Urine Squamous Epithelial Cells Few /LPF Urine Amorphous Sediment Present /HPF Urine Bacteria Few /HPF (0-FEW) Urine Hyaline Casts Moderate /HPF Urine Opiates Screen Pos (NEG) Urine Methadone Screen Neg (NEG) Urine Barbiturates Neg (NEG) Urine Phencyclidine Screen Neg (NEG) Urine Amphetamine/Methamphetamine Neg (NEG) Urine Benzodiazepines Screen Pos (NEG) Urine Cocaine Screen Neg (NEG) Urine Cannabinoids Screen Neg (NEG) Urine Ethyl Alcohol Neg (NEG) Assessment and Plan Assessmemt and Plan Problems Medical Problems: (1) ARPIT (acute kidney injury) Status: Acute (2) Anemia Status: Acute (3) Elevated troponin Status: Acute (4) Hyperkalemia Status: Acute Comment Review of Relevant I have reviewed the following items medardo (where applicable) has been applied. Labs Laboratory Tests Test 06/22/18 15:10 06/22/18 19:45 06/22/18 21:00 06/23/18 04:15 White Blood Count 16.8 x10^3/uL (4.0-11.0) 14.1 x10^3/uL (4.0-11.0) Red Blood Count 1.90 x10^6/uL (4.30-5.70) 2.08 x10^6/uL (4.30-5.70) Hemoglobin 5.8 g/dL (13.0-17.5) 6.4 g/dL (13.0-17.5) Hematocrit 17.8 % (39.0-53.0) 18.8 % (39.0-53.0) Mean Corpuscular Volume 94 fL (79-100) 90 fL (79-100) Mean Corpuscular Hemoglobin 31 pg (25-35) 31 pg (25-35) Mean Corpuscular Hemoglobin Concent 33 g/dL (31-37) 34 g/dL (31-37) Red Cell Distribution Width 16.4 % (11.5-14.5) 16.4 % (11.5-14.5) Platelet Count 445 x10^3/uL (140-400) 343 x10^3/uL (140-400) 378 x10^3/uL (140-400) Neutrophils (%) (Auto) 87 % (31-73) 85 % (31-73) Lymphocytes (%) (Auto) 8 % (24-48) 9 % (24-48) Monocytes (%) (Auto) 5 % (0-9) 6 % (0-9) Eosinophils (%) (Auto) 0 % (0-3) 0 % (0-3) Basophils (%) (Auto) 0 % (0-3) 0 % (0-3) Neutrophils # (Auto) 14.5 x10^3uL (1.8-7.7) 12.0 x10^3uL (1.8-7.7) Lymphocytes # (Auto) 1.4 x10^3/uL (1.0-4.8) 1.3 x10^3/uL (1.0-4.8) Monocytes # (Auto) 0.8 x10^3/uL (0.0-1.1) 0.8 x10^3/uL (0.0-1.1) Eosinophils # (Auto) 0.0 x10^3/uL (0.0-0.7) 0.0 x10^3/uL (0.0-0.7) Basophils # (Auto) 0.0 x10^3/uL (0.0-0.2) 0.0 x10^3/uL (0.0-0.2) Segmented Neutrophils % 87 % (35-66) Lymphocytes % 11 % (24-48) Monocytes % 2 % (0-10) Nucleated Red Blood Cells 2 Platelet Estimate Adequate (ADEQUATE) Polychromasia Slight Anisocytosis Slight Sodium Level 139 mmol/L (136-145) 140 mmol/L (136-145) Potassium Level 7.0 mmol/L (3.5-5.1) 4.0 mmol/L (3.5-5.1) Chloride Level 105 mmol/L (98-107) 101 mmol/L (98-107) Carbon Dioxide Level 13 mmol/L (21-32) 26 mmol/L (21-32) Anion Gap 21 (6-14) 13 (6-14) Blood Urea Nitrogen 120 mg/dL (8-26) 58 mg/dL (8-26) Creatinine 17.8 mg/dL (0.7-1.3) 9.1 mg/dL (0.7-1.3) Estimated GFR (Cockcroft-Gault) 2.9 6.3 BUN/Creatinine Ratio 7 (6-20) Glucose Level 122 mg/dL (70-99) 113 mg/dL (70-99) Lactic Acid Level 3.2 mmol/L (0.4-2.0) 1.1 mmol/L (0.4-2.0) Calcium Level 8.1 mg/dL (8.5-10.1) 7.3 mg/dL (8.5-10.1) Magnesium Level 2.6 mg/dL (1.8-2.4) 1.8 mg/dL (1.8-2.4) Total Bilirubin 0.6 mg/dL (0.2-1.0) Aspartate Amino Transf (AST/SGOT) 14 U/L (15-37) Alanine Aminotransferase (ALT/SGPT) 18 U/L (16-63) Alkaline Phosphatase 107 U/L (46-116) Troponin I Quantitative 0.111 ng/mL (0.000-0.055) 0.160 ng/mL (0.000-0.055) DV-Opv-Q-Type Natriuretic Peptide > 70432 pg/mL (0-124) Total Protein 8.0 g/dL (6.4-8.2) Albumin 2.7 g/dL (3.4-5.0) Albumin/Globulin Ratio 0.5 (1.0-1.7) Ethyl Alcohol Level < 3 mg/dL (0-10) Hepatitis B Surface Antigen Reactive (Nonreactive) Prothrombin Time 14.1 SEC (11.7-14.0) Prothromb Time International Ratio 1.1 (0.8-1.1) Phosphorus Level 8.0 mg/dL (2.6-4.7) Test 06/23/18 05:00 Urine Collection Type Unknown Urine Color Yellow Urine Clarity Clear Urine pH 7.0 Urine Specific [place] 1.015 Urine Protein >=300 mg/dL (NEG-TRACE) Urine Glucose (UA) Negative mg/dL (NEG) Urine Ketones (Stick) Trace mg/dL (NEG) Urine Blood Large (NEG) Urine Nitrite Negative (NEG) Urine Bilirubin Negative (NEG) Urine Urobilinogen Dipstick 0.2 mg/dL (0.2 mg/dL) Urine Leukocyte Esterase Small (NEG) Urine RBC >40 /HPF (0-2) Urine WBC 11-20 /HPF (0-4) Urine Squamous Epithelial Cells Few /LPF Urine Amorphous Sediment Present /HPF Urine Bacteria Few /HPF (0-FEW) Urine Hyaline Casts Moderate /HPF Urine Opiates Screen Pos (NEG) Urine Methadone Screen Neg (NEG) Urine Barbiturates Neg (NEG) Urine Phencyclidine Screen Neg (NEG) Urine Amphetamine/Methamphetamine Neg (NEG) Urine Benzodiazepines Screen Pos (NEG) Urine Cocaine Screen Neg (NEG) Urine Cannabinoids Screen Neg (NEG) Urine Ethyl Alcohol Neg (NEG) Laboratory Tests Test 06/22/18 15:10 06/22/18 19:45 06/22/18 21:00 06/23/18 04:15 White Blood Count 16.8 x10^3/uL (4.0-11.0) 14.1 x10^3/uL (4.0-11.0) Red Blood Count 1.90 x10^6/uL (4.30-5.70) 2.08 x10^6/uL (4.30-5.70) Hemoglobin 5.8 g/dL (13.0-17.5) 6.4 g/dL (13.0-17.5) Hematocrit 17.8 % (39.0-53.0) 18.8 % (39.0-53.0) Mean Corpuscular Volume 94 fL (79-100) 90 fL (79-100) Mean Corpuscular Hemoglobin 31 pg (25-35) 31 pg (25-35) Mean Corpuscular Hemoglobin Concent 33 g/dL (31-37) 34 g/dL (31-37) Red Cell Distribution Width 16.4 % (11.5-14.5) 16.4 % (11.5-14.5) Platelet Count 445 x10^3/uL (140-400) 343 x10^3/uL (140-400) 378 x10^3/uL (140-400) Neutrophils (%) (Auto) 87 % (31-73) 85 % (31-73) Lymphocytes (%) (Auto) 8 % (24-48) 9 % (24-48) Monocytes (%) (Auto) 5 % (0-9) 6 % (0-9) Eosinophils (%) (Auto) 0 % (0-3) 0 % (0-3) Basophils (%) (Auto) 0 % (0-3) 0 % (0-3) Neutrophils # (Auto) 14.5 x10^3uL (1.8-7.7) 12.0 x10^3uL (1.8-7.7) Lymphocytes # (Auto) 1.4 x10^3/uL (1.0-4.8) 1.3 x10^3/uL (1.0-4.8) Monocytes # (Auto) 0.8 x10^3/uL (0.0-1.1) 0.8 x10^3/uL (0.0-1.1) Eosinophils # (Auto) 0.0 x10^3/uL (0.0-0.7) 0.0 x10^3/uL (0.0-0.7) Basophils # (Auto) 0.0 x10^3/uL (0.0-0.2) 0.0 x10^3/uL (0.0-0.2) Segmented Neutrophils % 87 % (35-66) Lymphocytes % 11 % (24-48) Monocytes % 2 % (0-10) Nucleated Red Blood Cells 2 Platelet Estimate Adequate (ADEQUATE) Polychromasia Slight Anisocytosis Slight Sodium Level 139 mmol/L (136-145) 140 mmol/L (136-145) Potassium Level 7.0 mmol/L (3.5-5.1) 4.0 mmol/L (3.5-5.1) Chloride Level 105 mmol/L (98-107) 101 mmol/L (98-107) Carbon Dioxide Level 13 mmol/L (21-32) 26 mmol/L (21-32) Anion Gap 21 (6-14) 13 (6-14) Blood Urea Nitrogen 120 mg/dL (8-26) 58 mg/dL (8-26) Creatinine 17.8 mg/dL (0.7-1.3) 9.1 mg/dL (0.7-1.3) Estimated GFR (Cockcroft-Gault) 2.9 6.3 BUN/Creatinine Ratio 7 (6-20) Glucose Level 122 mg/dL (70-99) 113 mg/dL (70-99) Lactic Acid Level 3.2 mmol/L (0.4-2.0) 1.1 mmol/L (0.4-2.0) Calcium Level 8.1 mg/dL (8.5-10.1) 7.3 mg/dL (8.5-10.1) Magnesium Level 2.6 mg/dL (1.8-2.4) 1.8 mg/dL (1.8-2.4) Total Bilirubin 0.6 mg/dL (0.2-1.0) Aspartate Amino Transf (AST/SGOT) 14 U/L (15-37) Alanine Aminotransferase (ALT/SGPT) 18 U/L (16-63) Alkaline Phosphatase 107 U/L (46-116) Troponin I Quantitative 0.111 ng/mL (0.000-0.055) 0.160 ng/mL (0.000-0.055) QO-Css-U-Type Natriuretic Peptide > 38971 pg/mL (0-124) Total Protein 8.0 g/dL (6.4-8.2) Albumin 2.7 g/dL (3.4-5.0) Albumin/Globulin Ratio 0.5 (1.0-1.7) Ethyl Alcohol Level < 3 mg/dL (0-10) Hepatitis B Surface Antigen Reactive (Nonreactive) Prothrombin Time 14.1 SEC (11.7-14.0) Prothromb Time International Ratio 1.1 (0.8-1.1) Phosphorus Level 8.0 mg/dL (2.6-4.7) Test 06/23/18 05:00 Urine Collection Type Unknown Urine Color Yellow Urine Clarity Clear Urine pH 7.0 Urine Specific [place] 1.015 Urine Protein >=300 mg/dL (NEG-TRACE) Urine Glucose (UA) Negative mg/dL (NEG) Urine Ketones (Stick) Trace mg/dL (NEG) Urine Blood Large (NEG) Urine Nitrite Negative (NEG) Urine Bilirubin Negative (NEG) Urine Urobilinogen Dipstick 0.2 mg/dL (0.2 mg/dL) Urine Leukocyte Esterase Small (NEG) Urine RBC >40 /HPF (0-2) Urine WBC 11-20 /HPF (0-4) Urine Squamous Epithelial Cells Few /LPF Urine Amorphous Sediment Present /HPF Urine Bacteria Few /HPF (0-FEW) Urine Hyaline Casts Moderate /HPF Urine Opiates Screen Pos (NEG) Urine Methadone Screen Neg (NEG) Urine Barbiturates Neg (NEG) Urine Phencyclidine Screen Neg (NEG) Urine Amphetamine/Methamphetamine Neg (NEG) Urine Benzodiazepines Screen Pos (NEG) Urine Cocaine Screen Neg (NEG) Urine Cannabinoids Screen Neg (NEG) Urine Ethyl Alcohol Neg (NEG) Medications Current Medications Sodium Chloride 1,000 ml @ 1,000 mls/hr 1X ONCE IV Last administered on 06/22/18at 15:55; Start 06/22/18 at 15:15; Stop 06/22/18 at 16:14; Status DC Ondansetron HCl (Zofran) 4 mg 1X ONCE IM Last administered on 06/22/18at 15:54; Start 06/22/18 at 15:15; Stop 06/22/18 at 15:40; Status DC Dexamethasone Sodium Phosphate (Decadron) 10 mg 1X ONCE IV Last administered on 06/22/18at 15:54; Start 06/22/18 at 15:30; Stop 06/22/18 at 15:40; Status DC Iohexol (Omnipaque 300 Mg/ml) 75 ml 1X ONCE IV Last administered on 06/22/18at 16:00; Start 06/22/18 at 16:00; Stop 06/22/18 at 16:01; Status DC Info (CONTRAST GIVEN -- Rx MONITORING) 1 each PRN DAILY PRN MC SEE COMMENTS; Start 06/22/18 at 16:00; Stop 06/24/18 at 15:59 Calcium Gluconate (Calcium Gluconate) 3,000 mg 1X ONCE IVP Last administered on 06/22/18at 16:39; Start 06/22/18 at 16:00; Stop 06/22/18 at 16:01; Status DC Sodium Bicarbonate (Sodium Bicarb Adult 8.4% Syr) 50 meq 1X ONCE IV Last administered on 06/22/18at 16:40; Start 06/22/18 at 16:00; Stop 06/22/18 at 16:01; Status DC Dextrose (Dextrose 50%-Water Syringe) 25 gm 1X ONCE IV Last administered on 06/22/18at 16:40; Start 06/22/18 at 16:00; Stop 06/22/18 at 16:01; Status DC Insulin Human Regular (HumuLIN R VIAL) 10 unit 1X ONCE IV Last administered on 06/22/18at 16:42; Start 06/22/18 at 16:00; Stop 06/22/18 at 16:01; Status DC Sodium Polystyrene Sulfonate (Kayexalate) 60 gm 1X ONCE PO Last administered on 06/22/18at 17:41; Start 06/22/18 at 16:00; Stop 06/22/18 at 16:01; Status DC Sodium Chloride 1,000 ml @ 1,000 mls/hr Q1H IV Last administered on 06/22/18at 17:02; Start 06/22/18 at 15:50; Stop 06/22/18 at 16:49; Status DC Sodium Chloride 1,000 ml @ 100 mls/hr Q10H IV Last administered on 06/22/18at 22:08; Start 06/22/18 at 15:50; Stop 06/23/18 at 01:49; Status DC Vancomycin HCl (Vanco Per Pharmacy) 1 each PRN DAILY PRN MC SEE COMMENTS Last a dministered on 06/22/18at 17:53; Start 06/22/18 at 16:00 Piperacillin Sod/ Tazobactam Sod (Zosyn Per Pharmacy) 1 each PRN DAILY PRN MC SEE COMMENTS; Start 06/22/18 at 16:00 Piperacillin Sod/ Tazobactam Sod 2.25 gm/Sodium Chloride 50 ml @ 100 mls/hr 1X ONCE IV Last administered on 06/22/18at 16:48; Start 06/22/18 at 16:15; Stop 06/22/18 at 16:44; Status DC Vancomycin HCl 1.75 gm/Sodium Chloride 500 ml @ 250 mls/hr 1X ONCE IV ; Start 06/22/18 at 16:15; Stop 06/22/18 at 18:14; Status Cancel Vancomycin HCl 1.5 gm/Sodium Chloride 500 ml @ 250 mls/hr 1X ONCE IV Last administered on 06/22/18at 16:59; Start 06/22/18 at 16:15; Stop 06/22/18 at 18:14; Status DC Lidocaine/Sodium Bicarbonate (Buffered Lidocaine 1%) 3 ml STK-MED ONCE .ROUTE ; Start 06/22/18 at 16:10; Stop 06/22/18 at 16:11; Status DC Hydrocortisone Sodium Succinate (Solu-CORTEF) 100 mg Q8HRS IV Last administered on 06/23/18at 06:16; Start 06/22/18 at 16:30 Ondansetron HCl (Zofran) 4 mg PRN Q8HRS PRN IV NAUSEA/VOMITING; Start 06/22/18 at 16:30; Stop 06/23/18 at 16:29 Fentanyl Citrate (Fentanyl 2ml Vial) 50 mcg PRN Q1HR PRN IV PAIN Last administered on 06/23/18at 08:21; Start 06/22/18 at 16:30; Stop 06/23/18 at 16:29 Hydrocortisone Sodium Succinate (Solu-CORTEF) 100 mg 1X ONCE IV ; Start 06/22/18 at 17:00; Stop 06/22/18 at 17:00; Status DC Lidocaine/Sodium Bicarbonate (Buffered Lidocaine 1%) 5 ml 1X ONCE INJ Last administered on 06/22/18at 16:45; Start 06/22/18 at 16:45; Stop 06/22/18 at 16:46; Status DC Piperacillin Sod/ Tazobactam Sod 2.25 gm/Sodium Chloride 50 ml @ 100 mls/hr Q8HRS IV Last administered on 06/23/18at 06:16; Start 06/22/18 at 23:00 Vancomycin HCl (Vancomycin Random Level) 1 each 1X ONCE MC ; Start 06/23/18 at 18:00; Stop 06/23/18 at 18:01 Sodium Chloride 1,000 ml @ 1,000 mls/hr Q1H PRN IV hypotension; Start 06/22/18 at 18:15; Stop 06/23/18 at 00:14; Status DC Diphenhydramine HCl (Benadryl) 25 mg 1X PRN PRN IV ITCHING; Start 06/22/18 at 18:15; Stop 06/23/18 at 18:14 Diphenhydramine HCl (Benadryl) 25 mg 1X PRN PRN IV ITCHING; Start 06/22/18 at 18:15; Stop 06/23/18 at 18:14 Sodium Chloride 1,000 ml @ 400 mls/hr Q2H30M PRN IV PATENCY; Start 06/22/18 at 18:15; Stop 06/23/18 at 06:14; Status DC Info (PHARMACY MONITORING -- do not chart) 1 each PRN DAILY PRN MC SEE COMMENTS; Start 06/22/18 at 18:15 Sodium Chloride 1,000 ml @ 100 mls/hr Q10H IV Last administered on 06/23/18at 08:48; Start 06/23/18 at 09:00 Active Scripts Active Reported Multivitamins (Multivitamin) 1 Each Tablet 1 Tab PO DAILY Vitamin B-12 (Cyanocobalamin (Vitamin B-12)) 1,000 Mcg Tablet 1 Tab PO DAILY Olanzapine 20 Mg Tablet 20 Mg PO QHS Cortef (Hydrocortisone) 20 Mg Tablet 20 Mg PO DAILY Vitals/I & O Vital Sign - Last 24 Hours 06/22/18 06/22/18 06/22/18 06/22/18 15:13 15:30 15:45 16:45 Temp 97.7 97.7 Pulse 113 110 108 112 Resp 20 B/P (MAP) 145/93 (110) 132/91 (105) 133/94 (107) 135/89 (104) Pulse Ox 91 88 93 93 O2 Delivery Room Air Nasal Cannula Nasal Cannula Nasal Cannula O2 Flow Rate 2.0 4.0 4.0 06/22/18 06/22/18 06/22/18 06/22/18 17:15 18:00 18:20 18:26 Temp 97.8 97.8 97.8 97.8 Pulse 120 115 117 Resp 17 18 B/P (MAP) 170/101 (124) 151/100 (117) 154/103 Pulse Ox 95 93 O2 Delivery Nasal Cannula Nasal Cannula Nasal Cannula O2 Flow Rate 4.0 4.0 4.0 06/22/18 06/22/18 06/22/18 06/22/18 18:36 18:36 19:00 20:00 Temp 97.8 97.8 97.8 97.8 Pulse 117 120 122 Resp 20 18 B/P (MAP) 154/103 (120) 165/106 160/99 (119) Pulse Ox 93 92 O2 Delivery Nasal Cannula Nasal Cannula Nasal Cannula O2 Flow Rate 4.0 4.0 4.0 06/22/18 06/22/18 06/22/18 06/22/18 20:00 20:15 20:15 20:45 Temp 98.3 97.8 97.8 97.7 98.3 97.8 97.8 97.7 Pulse 118 126 126 114 Resp 18 20 B/P (MAP) 164/101 (122) 116/90 151/97 Pulse Ox 99 O2 Delivery Nasal Cannula O2 Flow Rate 4.0 06/22/18 06/22/18 06/22/18 06/22/18 21:00 22:00 23:01 23:59 Pulse 116 116 Resp 18 18 18 B/P (MAP) 123/116 (118) 159/99 (119) Pulse Ox 99 99 100 O2 Delivery Nasal Cannula Nasal Cannula Nasal Cannula Nasal Cannula O2 Flow Rate 4.0 4.0 4.0 3.0 06/23/18 06/23/18 06/23/18 06/23/18 00:00 01:00 01:23 02:00 Temp 99.7 99.7 Pulse 112 112 110 Resp 16 12 12 16 B/P (MAP) 145/85 (105) 132/71 (91) 133/84 (100) Pulse Ox 95 99 93 90 O2 Delivery Nasal Cannula Nasal Cannula Nasal Cannula Nasal Cannula O2 Flow Rate 3.0 3.0 4.0 3.0 06/23/18 06/23/18 06/23/18 06/23/18 03:00 04:00 04:00 04:59 Temp 99.1 99.1 Pulse 110 108 Resp 20 19 20 B/P (MAP) 150/86 (107) 119/72 (88) Pulse Ox 93 93 92 O2 Delivery Nasal Cannula Nasal Cannula Nasal Cannula Nasal Cannula O2 Flow Rate 4.0 4.0 4.0 4.0 06/23/18 06/23/18 06/23/18 06/23/18 05:00 06:00 07:00 07:22 Pulse 108 106 104 Resp 22 17 15 B/P (MAP) 127/82 (97) 130/86 (101) 136/89 (105) Pulse Ox 91 96 95 O2 Delivery Nasal Cannula Nasal Cannula Nasal Cannula Nasal Cannula O2 Flow Rate 5.0 5.0 4.0 4.0 06/23/18 06/23/18 06/23/18 06/23/18 08:00 08:09 08:21 08:25 Temp 99.4 99.4 99.2 99.4 99.4 99.2 Pulse 99 99 98 Resp 15 16 16 15 B/P (MAP) 136/88 (104) 136/89 139/92 Pulse Ox 95 95 O2 Delivery Nasal Cannula Nasal Cannula O2 Flow Rate 4.0 4.0 06/23/18 08:46 Resp 15 Pulse Ox 95 O2 Delivery Nasal Cannula O2 Flow Rate 4.0 Intake and Output 06/22/18 06/22/18 06/23/18 15:00 23:00 07:00 Intake Total 445 ml 1106 ml Output Total 0 ml 100 ml Balance 445 ml 1006 ml ROX SCHILLING MD June 23, 2018 09:38
[2018-06-23] MEDS: CYANOCOBALAMIN (VITAMIN B-12) 1,000 MCG TABLET. PO SCH (10:26)
[2018-06-23] MEDS: MULTIVITAMIN with MINERAL TABLET. PO SCH (10:26)
--- NOTE | 2018-06-23 10:33 | NUR ---
second unit of prbc's infusing via right ac piv. pt denies any increase in back pain, sob, lopez, or "anything different". s1 s2. Lungs auscultated clear. pt voided 200 cc of clear yellow urine with no odor. post void residual with bladder scanner result is [address] casanova informed of result. pt incontinent of soft green colored stool. pt cleansed. pt request to stay in bed. heating pad placed on pt back area for pain relief. pt thinks "this will work instead of taking the pain medicine".
[2018-06-23 10:57] LABS: URIC ACID 4.1 mg/dL (3.5-7.2)
[2018-06-23] MEDS: VANCOMYCIN PER PHARMACY MC PRN ×2 (11:04→19:00)
--- NOTE | 2018-06-23 11:25 | RAD ---
RENAL COMPLETE BILATERAL History: Acute kidney injury, microhematuria Comparison: None. Findings: Multiple sonographic images of the kidneys and retroperitoneal structures are submitted. Exam is somewhat limited due to bowel gas. Right kidney measured 11 x 5.6 x 4.1 cm. Left kidney measured 11.1 x 5.1 x 4.9 cm. There is no hydronephrosis of either kidney. On color images, there is some color flow of the vessels in the renal hilar regions although appears diminished. There is segmental visualization of the inferior vena cava. Urinary bladder is not well visualized. There is minimal free fluid in Morison's pouch. Incidental note is made of pleural effusions bilaterally. Visualized proximal abdominal aortic caliber is within normal limits at 2.4 cm, otherwise abdominal aorta not well visualized due to bowel gas. Impression: 1. There are bilateral pleural effusions, also nonspecific minimal free fluid in Morison's pouch. 2. There is no hydronephrosis of either kidney. There is some color-flow of the vessels near the renal hilar regions although appears diminished bilaterally. Electronically signed by: Flaquito Lowry MD (06/23/2018 11:22 AM) [id number]
--- NOTE | 2018-06-23 12:48 | NUR ---
SS following for discharge planning. SS reviewed pt chart. Per notes. Pt has been homeless and living in a longterm and has a history of mental health to include Bipolar and Schizophrenia per friends report. SS contacted PAT team for evaluation and assessment. Femi from the PAT team coming to assess pt. SS will continue to follow for discharge planning.
[2018-06-23] MEDS: traMADol 50 MG TABLET PO PRN (13:55)
--- NOTE | 2018-06-23 14:01 | PDOC ---
G I PROGRESS NOTE Reason for Follow-up Anemia/n/v/d Subjective Feeling better Physical Exam Lungs clear CV S1 S2 ABD +Bs, soft, nontender Review of Relevant I have reviewed the following items medardo (where applicable) has been applied. Labs Laboratory Tests Test 06/22/18 15:10 06/22/18 19:45 06/22/18 21:00 06/23/18 04:15 White Blood Count 16.8 x10^3/uL (4.0-11.0) 14.1 x10^3/uL (4.0-11.0) Red Blood Count 1.90 x10^6/uL (4.30-5.70) 2.08 x10^6/uL (4.30-5.70) Hemoglobin 5.8 g/dL (13.0-17.5) 6.4 g/dL (13.0-17.5) Hematocrit 17.8 % (39.0-53.0) 18.8 % (39.0-53.0) Mean Corpuscular Volume 94 fL (79-100) 90 fL (79-100) Mean Corpuscular Hemoglobin 31 pg (25-35) 31 pg (25-35) Mean Corpuscular Hemoglobin Concent 33 g/dL (31-37) 34 g/dL (31-37) Red Cell Distribution Width 16.4 % (11.5-14.5) 16.4 % (11.5-14.5) Platelet Count 445 x10^3/uL (140-400) 343 x10^3/uL (140-400) 378 x10^3/uL (140-400) Neutrophils (%) (Auto) 87 % (31-73) 85 % (31-73) Lymphocytes (%) (Auto) 8 % (24-48) 9 % (24-48) Monocytes (%) (Auto) 5 % (0-9) 6 % (0-9) Eosinophils (%) (Auto) 0 % (0-3) 0 % (0-3) Basophils (%) (Auto) 0 % (0-3) 0 % (0-3) Neutrophils # (Auto) 14.5 x10^3uL (1.8-7.7) 12.0 x10^3uL (1.8-7.7) Lymphocytes # (Auto) 1.4 x10^3/uL (1.0-4.8) 1.3 x10^3/uL (1.0-4.8) Monocytes # (Auto) 0.8 x10^3/uL (0.0-1.1) 0.8 x10^3/uL (0.0-1.1) Eosinophils # (Auto) 0.0 x10^3/uL (0.0-0.7) 0.0 x10^3/uL (0.0-0.7) Basophils # (Auto) 0.0 x10^3/uL (0.0-0.2) 0.0 x10^3/uL (0.0-0.2) Segmented Neutrophils % 87 % (35-66) Lymphocytes % 11 % (24-48) Monocytes % 2 % (0-10) Nucleated Red Blood Cells 2 Platelet Estimate Adequate (ADEQUATE) Polychromasia Slight Anisocytosis Slight Sodium Level 139 mmol/L (136-145) 140 mmol/L (136-145) Potassium Level 7.0 mmol/L (3.5-5.1) 4.0 mmol/L (3.5-5.1) Chloride Level 105 mmol/L (98-107) 101 mmol/L (98-107) Carbon Dioxide Level 13 mmol/L (21-32) 26 mmol/L (21-32) Anion Gap 21 (6-14) 13 (6-14) Blood Urea Nitrogen 120 mg/dL (8-26) 58 mg/dL (8-26) Creatinine 17.8 mg/dL (0.7-1.3) 9.1 mg/dL (0.7-1.3) Estimated GFR (Cockcroft-Gault) 2.9 6.3 BUN/Creatinine Ratio 7 (6-20) Glucose Level 122 mg/dL (70-99) 113 mg/dL (70-99) Lactic Acid Level 3.2 mmol/L (0.4-2.0) 1.1 mmol/L (0.4-2.0) Calcium Level 8.1 mg/dL (8.5-10.1) 7.3 mg/dL (8.5-10.1) Magnesium Level 2.6 mg/dL (1.8-2.4) 1.8 mg/dL (1.8-2.4) Total Bilirubin 0.6 mg/dL (0.2-1.0) Aspartate Amino Transf (AST/SGOT) 14 U/L (15-37) Alanine Aminotransferase (ALT/SGPT) 18 U/L (16-63) Alkaline Phosphatase 107 U/L (46-116) Troponin I Quantitative 0.111 ng/mL (0.000-0.055) 0.160 ng/mL (0.000-0.055) UV-Msr-Q-Type Natriuretic Peptide > 47046 pg/mL (0-124) Total Protein 8.0 g/dL (6.4-8.2) Albumin 2.7 g/dL (3.4-5.0) Albumin/Globulin Ratio 0.5 (1.0-1.7) Ethyl Alcohol Level < 3 mg/dL (0-10) Hepatitis B Surface Antigen Reactive (Nonreactive) Prothrombin Time 14.1 SEC (11.7-14.0) Prothromb Time International Ratio 1.1 (0.8-1.1) Uric Acid 4.1 mg/dL (3.5-7.2) Phosphorus Level 8.0 mg/dL (2.6-4.7) Creatine Kinase 96 U/L (39-308) Hepatitis B Surface Antibody, Quant 22.0 mIU/mL (Immunity>9.9) Hepatitis B Core Total Antibody Negative (Negative) Test 06/23/18 05:00 Urine Collection Type Unknown Urine Color Yellow Urine Clarity Clear Urine pH 7.0 Urine Specific [place] 1.015 Urine Protein >=300 mg/dL (NEG-TRACE) Urine Glucose (UA) Negative mg/dL (NEG) Urine Ketones (Stick) Trace mg/dL (NEG) Urine Blood Large (NEG) Urine Nitrite Negative (NEG) Urine Bilirubin Negative (NEG) Urine Urobilinogen Dipstick 0.2 mg/dL (0.2 mg/dL) Urine Leukocyte Esterase Small (NEG) Urine RBC >40 /HPF (0-2) Urine WBC 11-20 /HPF (0-4) Urine Squamous Epithelial Cells Few /LPF Urine Amorphous Sediment Present /HPF Urine Bacteria Few /HPF (0-FEW) Urine Hyaline Casts Moderate /HPF Urine Opiates Screen Pos (NEG) Urine Methadone Screen Neg (NEG) Urine Barbiturates Neg (NEG) Urine Phencyclidine Screen Neg (NEG) Urine Amphetamine/Methamphetamine Neg (NEG) Urine Benzodiazepines Screen Pos (NEG) Urine Cocaine Screen Neg (NEG) Urine Cannabinoids Screen Neg (NEG) Urine Ethyl Alcohol Neg (NEG) Laboratory Tests Test 06/22/18 15:10 06/22/18 19:45 06/22/18 21:00 06/23/18 04:15 White Blood Count 16.8 x10^3/uL (4.0-11.0) 14.1 x10^3/uL (4.0-11.0) Red Blood Count 1.90 x10^6/uL (4.30-5.70) 2.08 x10^6/uL (4.30-5.70) Hemoglobin 5.8 g/dL (13.0-17.5) 6.4 g/dL (13.0-17.5) Hematocrit 17.8 % (39.0-53.0) 18.8 % (39.0-53.0) Mean Corpuscular Volume 94 fL (79-100) 90 fL (79-100) Mean Corpuscular Hemoglobin 31 pg (25-35) 31 pg (25-35) Mean Corpuscular Hemoglobin Concent 33 g/dL (31-37) 34 g/dL (31-37) Red Cell Distribution Width 16.4 % (11.5-14.5) 16.4 % (11.5-14.5) Platelet Count 445 x10^3/uL (140-400) 343 x10^3/uL (140-400) 378 x10^3/uL (140-400) Neutrophils (%) (Auto) 87 % (31-73) 85 % (31-73) Lymphocytes (%) (Auto) 8 % (24-48) 9 % (24-48) Monocytes (%) (Auto) 5 % (0-9) 6 % (0-9) Eosinophils (%) (Auto) 0 % (0-3) 0 % (0-3) Basophils (%) (Auto) 0 % (0-3) 0 % (0-3) Neutrophils # (Auto) 14.5 x10^3uL (1.8-7.7) 12.0 x10^3uL (1.8-7.7) Lymphocytes # (Auto) 1.4 x10^3/uL (1.0-4.8) 1.3 x10^3/uL (1.0-4.8) Monocytes # (Auto) 0.8 x10^3/uL (0.0-1.1) 0.8 x10^3/uL (0.0-1.1) Eosinophils # (Auto) 0.0 x10^3/uL (0.0-0.7) 0.0 x10^3/uL (0.0-0.7) Basophils # (Auto) 0.0 x10^3/uL (0.0-0.2) 0.0 x10^3/uL (0.0-0.2) Segmented Neutrophils % 87 % (35-66) Lymphocytes % 11 % (24-48) Monocytes % 2 % (0-10) Nucleated Red Blood Cells 2 Platelet Estimate Adequate (ADEQUATE) Polychromasia Slight Anisocytosis Slight Sodium Level 139 mmol/L (136-145) 140 mmol/L (136-145) Potassium Level 7.0 mmol/L (3.5-5.1) 4.0 mmol/L (3.5-5.1) Chloride Level 105 mmol/L (98-107) 101 mmol/L (98-107) Carbon Dioxide Level 13 mmol/L (21-32) 26 mmol/L (21-32) Anion Gap 21 (6-14) 13 (6-14) Blood Urea Nitrogen 120 mg/dL (8-26) 58 mg/dL (8-26) Creatinine 17.8 mg/dL (0.7-1.3) 9.1 mg/dL (0.7-1.3) Estimated GFR (Cockcroft-Gault) 2.9 6.3 BUN/Creatinine Ratio 7 (6-20) Glucose Level 122 mg/dL (70-99) 113 mg/dL (70-99) Lactic Acid Level 3.2 mmol/L (0.4-2.0) 1.1 mmol/L (0.4-2.0) Calcium Level 8.1 mg/dL (8.5-10.1) 7.3 mg/dL (8.5-10.1) Magnesium Level 2.6 mg/dL (1.8-2.4) 1.8 mg/dL (1.8-2.4) Total Bilirubin 0.6 mg/dL (0.2-1.0) Aspartate Amino Transf (AST/SGOT) 14 U/L (15-37) Alanine Aminotransferase (ALT/SGPT) 18 U/L (16-63) Alkaline Phosphatase 107 U/L (46-116) Troponin I Quantitative 0.111 ng/mL (0.000-0.055) 0.160 ng/mL (0.000-0.055) [id number]-Yzr-[id number]-Type Natriuretic Peptide > 50904 pg/mL (0-124) Total Protein 8.0 g/dL (6.4-8.2) Albumin 2.7 g/dL (3.4-5.0) Albumin/Globulin Ratio 0.5 (1.0-1.7) Ethyl Alcohol Level < 3 mg/dL (0-10) Hepatitis B Surface Antigen Reactive (Nonreactive) Prothrombin Time 14.1 SEC (11.7-14.0) Prothromb Time International Ratio 1.1 (0.8-1.1) Uric Acid 4.1 mg/dL (3.5-7.2) Phosphorus Level 8.0 mg/dL (2.6-4.7) Creatine Kinase 96 U/L (39-308) Hepatitis B Surface Antibody, Quant 22.0 mIU/mL (Immunity>9.9) Hepatitis B Core Total Antibody Negative (Negative) Test 06/23/18 05:00 Urine Collection Type Unknown Urine Color Yellow Urine Clarity Clear Urine pH 7.0 Urine Specific [place] 1.015 Urine Protein >=300 mg/dL (NEG-TRACE) Urine Glucose (UA) Negative mg/dL (NEG) Urine Ketones (Stick) Trace mg/dL (NEG) Urine Blood Large (NEG) Urine Nitrite Negative (NEG) Urine Bilirubin Negative (NEG) Urine Urobilinogen Dipstick 0.2 mg/dL (0.2 mg/dL) Urine Leukocyte Esterase Small (NEG) Urine RBC >40 /HPF (0-2) Urine WBC 11-20 /HPF (0-4) Urine Squamous Epithelial Cells Few /LPF Urine Amorphous Sediment Present /HPF Urine Bacteria Few /HPF (0-FEW) Urine Hyaline Casts Moderate /HPF Urine Opiates Screen Pos (NEG) Urine Methadone Screen Neg (NEG) Urine Barbiturates Neg (NEG) Urine Phencyclidine Screen Neg (NEG) Urine Amphetamine/Methamphetamine Neg (NEG) Urine Benzodiazepines Screen Pos (NEG) Urine Cocaine Screen Neg (NEG) Urine Cannabinoids Screen Neg (NEG) Urine Ethyl Alcohol Neg (NEG) Medications Current Medications Sodium Chloride 1,000 ml @ 1,000 mls/hr 1X ONCE IV Last administered on 06/22/18at 15:55; Start 06/22/18 at 15:15; Stop 06/22/18 at 16:14; Status DC Ondansetron HCl (Zofran) 4 mg 1X ONCE IM Last administered on 06/22/18at 15:54; Start 06/22/18 at 15:15; Stop 06/22/18 at 15:40; Status DC Dexamethasone Sodium Phosphate (Decadron) 10 mg 1X ONCE IV Last administered on 06/22/18at 15:54; Start 06/22/18 at 15:30; Stop 06/22/18 at 15:40; Status DC Iohexol (Omnipaque 300 Mg/ml) 75 ml 1X ONCE IV Last administered on 06/22/18at 16:00; Start 06/22/18 at 16:00; Stop 06/22/18 at 16:01; Status DC Info (CONTRAST GIVEN -- Rx MONITORING) 1 each PRN DAILY PRN MC SEE COMMENTS; Start 06/22/18 at 16:00; Stop 06/24/18 at 15:59 Calcium Gluconate (Calcium Gluconate) 3,000 mg 1X ONCE IVP Last administered o n 06/22/18at 16:39; Start 06/22/18 at 16:00; Stop 06/22/18 at 16:01; Status DC Sodium Bicarbonate (Sodium Bicarb Adult 8.4% Syr) 50 meq 1X ONCE IV Last administered on 06/22/18at 16:40; Start 06/22/18 at 16:00; Stop 06/22/18 at 16:01; Status DC Dextrose (Dextrose 50%-Water Syringe) 25 gm 1X ONCE IV Last administered on 06/22/18at 16:40; Start 06/22/18 at 16:00; Stop 06/22/18 at 16:01; Status DC Insulin Human Regular (HumuLIN R VIAL) 10 unit 1X ONCE IV Last administered on 06/22/18at 16:42; Start 06/22/18 at 16:00; Stop 06/22/18 at 16:01; Status DC Sodium Polystyrene Sulfonate (Kayexalate) 60 gm 1X ONCE PO Last administered on 06/22/18at 17:41; Start 06/22/18 at 16:00; Stop 06/22/18 at 16:01; Status DC Sodium Chloride 1,000 ml @ 1,000 mls/hr Q1H IV Last administered on 06/22/18at 17:02; Start 06/22/18 at 15:50; Stop 06/22/18 at 16:49; Status DC Sodium Chloride 1,000 ml @ 100 mls/hr Q10H IV Last administered on 06/22/18at 22:08; Start 06/22/18 at 15:50; Stop 06/23/18 at 01:49; Status DC Vancomycin HCl (Vanco Per Pharmacy) 1 each PRN DAILY PRN MC SEE COMMENTS Last administered on 06/23/18at 11:04; Start 06/22/18 at 16:00 Piperacillin Sod/ Tazobactam Sod (Zosyn Per Pharmacy) 1 each PRN DAILY PRN MC SEE COMMENTS; Start 06/22/18 at 16:00 Piperacillin Sod/ Tazobactam Sod 2.25 gm/Sodium Chloride 50 ml @ 100 mls/hr 1X ONCE IV Last administered on 06/22/18at 16:48; Start 06/22/18 at 16:15; Stop 06/22/18 at 16:44; Status DC Vancomycin HCl 1.75 gm/Sodium Chloride 500 ml @ 250 mls/hr 1X ONCE IV ; Start 06/22/18 at 16:15; Stop 06/22/18 at 18:14; Status Cancel Vancomycin HCl 1.5 gm/Sodium Chloride 500 ml @ 250 mls/hr 1X ONCE IV Last administered on 06/22/18at 16:59; Start 06/22/18 at 16:15; Stop 06/22/18 at 18:14; Status DC Lidocaine/Sodium Bicarbonate (Buffered Lidocaine 1%) 3 ml STK-MED ONCE .ROUTE ; Start 06/22/18 at 16:10; Stop 06/22/18 at 16:11; Status DC Hydrocortisone Sodium Succinate (Solu-CORTEF) 100 mg Q8HRS IV Last administered on 06/23/18at 13:23; Start 06/22/18 at 16:30 Ondansetron HCl (Zofran) 4 mg PRN Q8HRS PRN IV NAUSEA/VOMITING; Start 06/22/18 at 16:30; Stop 06/23/18 at 16:29 Fentanyl Citrate (Fentanyl 2ml Vial) 50 mcg PRN Q1HR PRN IV PAIN Last admi nistered on 06/23/18at 08:21; Start 06/22/18 at 16:30; Stop 06/23/18 at 16:29 Hydrocortisone Sodium Succinate (Solu-CORTEF) 100 mg 1X ONCE IV ; Start 06/22/18 at 17:00; Stop 06/22/18 at 17:00; Status DC Lidocaine/Sodium Bicarbonate (Buffered Lidocaine 1%) 5 ml 1X ONCE INJ Last administered on 06/22/18at 16:45; Start 06/22/18 at 16:45; Stop 06/22/18 at 16:46; Status DC Piperacillin Sod/ Tazobactam Sod 2.25 gm/Sodium Chloride 50 ml @ 100 mls/hr Q8HRS IV Last administered on 06/23/18at 13:24; Start 06/22/18 at 23:00 Vancomycin HCl (Vancomycin Random Level) 1 each 1X ONCE MC ; Start 06/23/18 at 18:00; Stop 06/23/18 at 18:01 Sodium Chloride 1,000 ml @ 1,000 mls/hr Q1H PRN IV hypotension; Start 06/22/18 at 18:15; Stop 06/23/18 at 00:14; Status DC Diphenhydramine HCl (Benadryl) 25 mg 1X PRN PRN IV ITCHING; Start 06/22/18 at 18:15; Stop 06/23/18 at 18:14 Diphenhydramine HCl (Benadryl) 25 mg 1X PRN PRN IV ITCHING; Start 06/22/18 at 18:15; Stop 06/23/18 at 18:14 Sodium Chloride 1,000 ml @ 400 mls/hr Q2H30M PRN IV PATENCY; Start 06/22/18 at 18:15; Stop 06/23/18 at 06:14; Status DC Info (PHARMACY MONITORING -- do not chart) 1 each PRN DAILY PRN MC SEE CO MMENTS; Start 06/22/18 at 18:15 Sodium Chloride 1,000 ml @ 100 mls/hr Q10H IV Last administered on 06/23/18 08:48; Start 06/23/18 at 09:00; Stop 06/23/18 at 13:45; Status DC Cyanocobalamin (Vitamin B-12) 1,000 mcg DAILY PO Last administered on 06/23/18 10:26; Start 06/23/18 at 11:00 Multivitamins (Thera M Plus) 1 tab DAILY PO Last administered on 06/23/18 10:26; Start 06/23/18 at 11:00 Olanzapine (ZyPREXA) 20 mg QHS PO ; Start 06/23/18 at 21:00 Tramadol HCl (Ultram) 50 mg PRN Q6HRS PRN PO PAIN Last administered on 06/23/18at 13:55; Start 06/23/18 at 13:45 Active Scripts Active Reported Multivitamins (Multivitamin) 1 Each Tablet 1 Tab PO DAILY Vitamin B-12 (Cyanocobalamin (Vitamin B-12)) 1,000 Mcg Tablet 1 Tab PO DAILY Olanzapine 20 Mg Tablet 20 Mg PO QHS Cortef (Hydrocortisone) 20 Mg Tablet 20 Mg PO DAILY Vitals/I & O Vital Sign - Last 24 Hours 06/22/18 06/22/18 06/22/18 06/22/18 15:13 15:30 15:45 16:45 Temp 97.7 97.7 Pulse 113 110 108 112 Resp 20 B/P (MAP) 145/93 (110) 132/91 (105) 133/94 (107) 135/89 (104) Pulse Ox 91 88 93 93 O2 Delivery Room Air Nasal Cannula Nasal Cannula Nasal Cannula O2 Flow Rate 2.0 4.0 4.0 06/22/18 06/22/18 06/22/18 06/22/18 17:15 18:00 18:20 18:26 Temp 97.8 97.8 97.8 97.8 Pulse 120 115 117 Resp 17 18 B/P (MAP) 170/101 (124) 151/100 (117) 154/103 Pulse Ox 95 93 O2 Delivery Nasal Cannula Nasal Cannula Nasal Cannula O2 Flow Rate 4.0 4.0 4.0 06/22/18 06/22/18 06/22/18 06/22/18 18:36 18:36 19:00 20:00 Temp 97.8 97.8 97.8 97.8 Pulse 117 120 122 Resp 20 18 B/P (MAP) 154/103 (120) 165/106 160/99 (119) Pulse Ox 93 92 O2 Delivery Nasal Cannula Nasal Cannula Nasal Cannula O2 Flow Rate 4.0 4.0 4.0 06/22/18 06/22/18 06/22/18 06/22/18 20:00 20:15 20:15 20:45 Temp 98.3 97.8 97.8 97.7 98.3 97.8 97.8 97.7 Pulse 118 126 126 114 Resp 18 20 20 20 B/P (MAP) 164/101 (122) 116/90 151/97 Pulse Ox 99 O2 Delivery Nasal Cannula O2 Flow Rate 4.0 06/22/18 06/22/18 06/22/18 06/22/18 21:00 22:00 23:01 23:59 Pulse 116 116 Resp 18 18 18 B/P (MAP) 123/116 (118) 159/99 (119) Pulse Ox 99 99 100 O2 Delivery Nasal Cannula Nasal Cannula Nasal Cannula Nasal Cannula O2 Flow Rate 4.0 4.0 4.0 3.0 06/23/18 06/23/18 06/23/18 06/23/18 00:00 01:00 01:23 02:00 Temp 99.7 99.7 Pulse 112 112 110 Resp 16 12 12 16 B/P (MAP) 145/85 (105) 132/71 (91) 133/84 (100) Pulse Ox 95 99 93 90 O2 Delivery Nasal Cannula Nasal Cannula Nasal Cannula Nasal Cannula O2 Flow Rate 3.0 3.0 4.0 3.0 06/23/18 06/23/18 06/23/18 06/23/18 03:00 04:00 04:00 04:59 Temp 99.1 99.1 Pulse 110 108 Resp 20 19 20 B/P (MAP) 150/86 (107) 119/72 (88) Pulse Ox 93 93 92 O2 Delivery Nasal Cannula Nasal Cannula Nasal Cannula Nasal Cannula O2 Flow Rate 4.0 4.0 4.0 4.0 06/23/18 06/23/18 06/23/18 06/23/18 05:00 06:00 07:00 07:22 Pulse 108 106 104 Resp 22 17 15 B/P (MAP) 127/82 (97) 130/86 (101) 136/89 (105) Pulse Ox 91 96 95 O2 Delivery Nasal Cannula Nasal Cannula Nasal Cannula Nasal Cannula O2 Flow Rate 5.0 5.0 4.0 4.0 06/23/18 06/23/18 06/23/18 06/23/18 08:00 08:09 08:21 08:25 Temp 99.4 99.4 99.2 99.4 99.4 99.2 Pulse 99 99 98 Resp 15 16 16 15 B/P (MAP) 136/88 (104) 136/89 139/92 Pulse Ox 95 95 O2 Delivery Nasal Cannula Nasal Cannula O2 Flow Rate 4.0 4.0 06/23/18 06/23/18 06/23/18 06/23/18 08:46 09:00 09:00 09:58 Temp 98.9 98.9 98.7 98.9 98.9 98.7 Pulse 105 100 100 Resp 15 15 15 15 B/P (MAP) 135/88 (104) 133/88 138/90 Pulse Ox 95 95 O2 Delivery Nasal Cannula Nasal Cannula O2 Flow Rate 4.0 4.0 06/23/18 06/23/18 06/23/18 06/23/18 10:00 10:04 10:22 11:02 Temp 98.7 98.7 98.6 98.6 98.7 98.7 98.6 98.6 Pulse 100 96 97 97 Resp 15 15 15 15 B/P (MAP) 138/90 (106) 138/90 139/87 138/91 (107) Pulse Ox 93 93 O2 Delivery Nasal Cannula Nasal Cannula O2 Flow Rate 3.0 3.0 06/23/18 06/23/18 06/23/18 06/23/18 12:00 12:00 13:00 13:55 Temp 98.7 98.7 Pulse 98 96 Resp 15 15 B/P (MAP) 138/90 (106) 148/95 (112) Pulse Ox 93 97 96 O2 Delivery Nasal Cannula Nasal Cannula Nasal Cannula Nasal Cannula O2 Flow Rate 2.0 2.0 2.0 2.0 Intake and Output 06/22/18 06/22/18 06/23/18 14:59 22:59 06:59 Intake Total 445 ml 1106 ml Output Total 100 ml Balance 445 ml 1006 ml Problem List Problems Medical Problems: (1) ARPIT (acute kidney injury) Status: Acute (2) Anemia Status: Acute (3) Elevated troponin Status: Acute (4) Hyperkalemia Status: Acute Assessment Anemia- wit hmelan and ARF. Etiology to be determined. PUD leads differential. IBD, colon/gastric cancer possible as well. Medical therpay for now. EGD once ARF resolved. CPM SON FOX MD June 23, 2018 14:01
--- NOTE | 2018-06-23 14:49 | NUR ---
SS following up with discharge planning. SS received notification from Femi from the PAT team that pt goes to [facility] in [place], [place] and has a follow up appointment with them in August. Femi reported that pt spends time in [place] with his girlfriend and comes to [place] to stay with a friend. Pt was in [facility] two months ago for suicidal ideations but is currently denying any SI at this time. Femi provided resources to pt for [place]. Pt accepted resources.
[2018-06-23] MEDS ORDERED: VANCOMYCIN RANDOM LEVEL. MC ONE (18:00)
--- NOTE | 2018-06-23 19:07 | NUR ---
Pharmacy Vancomycin Dosing Note S: Consulted to monitor and dose vancomycin started 06/22/18. O: SAVANAANTWANTERENCE Roque is a 47 year old M with Sepsis Other Antibiotics: ZOSYN LABS: Last BUN: 58 Last Creatinine: 9.1 Creatinine Clearance: 11 mL/min Last WBC: 14.1 Last Procalcitonin: Tmax (past 24 hours): 99.7 Microbiology: BLOOD: NGTD I/O: 2230/200 Drug Levels: Last Random level: 13.6 on 06/23/18 at 1750 Last dose given 06/22/18 at 1659 Vancomycin Dosing: Dosing Weight: Actual Target Trough: 10-20 A: Based on: RANDOM LEVEL P: 1. Dose Vancomycin 1000 mg IV One Time 06/24 (after dialysis) 2. Follow up Random levels as needed 3. Pharmacy will continue to monitor, follow and adjust therapy as needed. Marjorie Lynch RPH, 06/23/18 0410
[2018-06-23] MEDS: OLANZapine 5 MG TABLET PO SCH (21:41)
[2018-06-24 01:12] LABS: HEP B SURFACE AG Negative (Negative)
[2018-06-24 03:00] VITALS: BP 124/81
[2018-06-24 04:52] LABS: HEMATOCRIT 21.6 % (39.0-53.0); HEMOGLOBIN 7.3 g/dL (13.0-17.5); RED BLOOD COUNT 2.42 x10^6/uL (4.30-5.70); RED CELL DISTRIBUTION WIDTH 15.6 % (11.5-14.5); WHITE BLOOD COUNT 13.5 x10^3/uL (4.0-11.0)
[2018-06-24] MEDS: HYDROCORTISONE SOD SUCC/PF 100 MG/2 ML VIAL. IV SCH ×3 (06:00→22:10)
[2018-06-24] MEDS: PIPERACILLIN/TAZOBACTAM 2.25 GM in IV NORMAL SALINE 50ML 50 ML IV SCH ×3 (06:09→22:10)
[2018-06-24 06:14] LABS: ALBUMIN 1.8 g/dL (3.4-5.0); CALCIUM 6.7 mg/dL (8.5-10.1); CREATININE 10.1 mg/dL (0.7-1.3); GFR 5.6; PHOSPHORUS 7.9 mg/dL (2.6-4.7); POTASSIUM 3.4 mmol/L (3.5-5.1)
[2018-06-24 07:00] VITALS: BP 127/82
[2018-06-24 11:00] VITALS: BP 127/79
[2018-06-24] MEDS: CYANOCOBALAMIN (VITAMIN B-12) 1,000 MCG TABLET. PO SCH (11:29)
[2018-06-24] MEDS: MULTIVITAMIN with MINERAL TABLET. PO SCH (11:29)
--- NOTE | 2018-06-24 12:33 | PDOC ---
Renal-Progress Notes Subjective Notes Notes NO NEW COMPLAINTS History of Present Illness Hx of present illness STILL SOME NAUSEA Vitals Vitals Vital Signs Date Time Temp Pulse Resp B/P (MAP) Pulse Ox O2 Delivery O2 Flow Rate FiO2 06/24/18 12:00 Room Air 4.0 06/24/18 11:00 98.3 88 18 127/79 (95) 92 98.3 Weight Weight [ ] I.O. Intake and Output Intake and Output 06/24/18 07:00 Intake Total 2450 ml Output Total 200 ml Balance 2250 ml Intake Oral 1120 ml IV Total 700 ml Blood Product 630 ml Output Urine Total 200 ml # Voids 1 Labs Labs Laboratory Tests Test 06/23/18 17:50 06/24/18 04:35 Random Vancomycin Level 13.6 mcg/mL White Blood Count 13.5 x10^3/uL (4.0-11.0) Red Blood Count 2.42 x10^6/uL (4.30-5.70) Hemoglobin 7.3 g/dL (13.0-17.5) Hematocrit 21.6 % (39.0-53.0) Mean Corpuscular Volume 89 fL (79-100) Mean Corpuscular Hemoglobin 30 pg (25-35) Mean Corpuscular Hemoglobin Concent 34 g/dL (31-37) Red Cell Distribution Width 15.6 % (11.5-14.5) Platelet Count 325 x10^3/uL (140-400) Sodium Level 138 mmol/L (136-145) Potassium Level 3.4 mmol/L (3.5-5.1) Chloride Level 100 mmol/L (98-107) Carbon Dioxide Level 24 mmol/L (21-32) Anion Gap 14 (6-14) Blood Urea Nitrogen 71 mg/dL (8-26) Creatinine 10.1 mg/dL (0.7-1.3) Estimated GFR (Cockcroft-Gault) 5.6 Glucose Level 139 mg/dL (70-99) Calcium Level 6.7 mg/dL (8.5-10.1) Phosphorus Level 7.9 mg/dL (2.6-4.7) Iron Level 70 ug/dL (65-175) Total Iron Binding Capacity 126 ug/dL (250-450) Iron Saturation 56 % (15-34) Ferritin 407 ng/mL (26-388) Albumin 1.8 g/dL (3.4-5.0) Micro Micro Microbiology 06/22/18 Blood Culture - Preliminary, Resulted NO GROWTH AFTER 1 DAY Review of Systems Constitutional: yes: alert, oriented Ears/Nose/Throat: Yes: no symptom reported Eyes: Yes: no symptom reported Pulmonary: Yes no symptom reported Cardiovascular: Yes no symptom reported Gastrointestional: Yes: no symptom reported Genitourinary: Yes: no symptom reported Musculoskeletal: Yes: no symptom reported Skin: Yes no symptom reported Psychiatric/Neurological: Yes: no symptom reported Endocrine: Yes: no symptom reported Physical Exam General Appearance: no apparent distress Skin: warm Respiratory: bilateral CTA Heart: S1S2 Abdomen: soft, bowel sounds present Genitourinary: bladder flat Extremities: pulses present Neurology: alert, oriented Assessment Assessment IMP ARPIT-ATN HX OF ADRENAL INSUFFICIENCY DEHYDRATION PLAN STEROIDS HYDRATION HD AGAIN TODAY UF MINIMIAL WILL LOOK FOR RENAL RECOVERY MARBIN SORIANO MD June 24, 2018 12:33
--- NOTE | 2018-06-24 13:53 | PDOC ---
Subjective: Subjective: Overall, he is doing better today. He had two watery bowel movement today. No melena or hematochezia. 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 He is currently after he presented with nausea, vomiting,abdominal pain and diarrhea. He had volume depletion with acute renal failure due to ATN with hyperkalemia ( 7.0), BUN 120 and Cr 17.8 requiring emergent HD last evening. Suspect patient had adrenal crisis likely due to questionable compliance versus stress factors including underlying infections. Patient also has normocytic anemia with no active overt GI bleeding likely related to anemia of chronic disease. Recommendations - Diet as tolerated. - Appreciate the care by primary team adrenal team. - Supportive cares with IVF and steroids. - Monitor CBC and transfuse to keep hgb above 7. - Send stool studies to rule out infectious process. - Patient needs to have upper and lower endoscopic exam after optimizing his medical management. GI available for any Q's. Thank you for involving us in the care of this patient. SARWAT ISBELL MD June 24, 2018 13:53
[2018-06-24] MEDS: IV NORMAL SALINE 1000ML BAG 1,000 ML IV SCH ×2 (14:38→22:36)
[2018-06-24 15:00] VITALS: BP 133/87
[2018-06-24] MEDS: VANCOMYCIN PER PHARMACY MC PRN ×2 (15:26→15:29)
--- NOTE | 2018-06-24 15:47 | PDOC ---
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 RIJ HD cathete will need ongoing HD hgb better labs improving he still feels terrible cont HD Vitals Vitals Vital Signs Date Time Temp Pulse Resp B/P (MAP) Pulse Ox O2 Delivery O2 Flow Rate FiO2 06/24/18 12:00 Room Air 4.0 06/24/18 11:00 98.3 88 18 127/79 (95) 92 98.3 Physical Exam General: Alert, Cooperative Heart: Regular rate, Normal S1, Normal S2 Lungs: Wheezing Abdomen: Normal bowel sounds, Soft, No tenderness, No hepatosplenomegaly Extremities: No clubbing, No cyanosis Skin: No rashes, No breakdown Labs LABS Laboratory Tests Test 06/23/18 17:50 06/24/18 04:35 Random Vancomycin Level 13.6 mcg/mL White Blood Count 13.5 x10^3/uL (4.0-11.0) Red Blood Count 2.42 x10^6/uL (4.30-5.70) Hemoglobin 7.3 g/dL (13.0-17.5) Hematocrit 21.6 % (39.0-53.0) Mean Corpuscular Volume 89 fL (79-100) Mean Corpuscular Hemoglobin 30 pg (25-35) Mean Corpuscular Hemoglobin Concent 34 g/dL (31-37) Red Cell Distribution Width 15.6 % (11.5-14.5) Platelet Count 325 x10^3/uL (140-400) Sodium Level 138 mmol/L (136-145) Potassium Level 3.4 mmol/L (3.5-5.1) Chloride Level 100 mmol/L (98-107) Carbon Dioxide Level 24 mmol/L (21-32) Anion Gap 14 (6-14) Blood Urea Nitrogen 71 mg/dL (8-26) Creatinine 10.1 mg/dL (0.7-1.3) Estimated GFR (Cockcroft-Gault) 5.6 Glucose Level 139 mg/dL (70-99) Calcium Level 6.7 mg/dL (8.5-10.1) Phosphorus Level 7.9 mg/dL (2.6-4.7) Iron Level 70 ug/dL (65-175) Total Iron Binding Capacity 126 ug/dL (250-450) Iron Saturation 56 % (15-34) Ferritin 407 ng/mL (26-388) Albumin 1.8 g/dL (3.4-5.0) Assessment and Plan Assessmemt and Plan Problems Medical Problems: (1) ARPIT (acute kidney injury) Status: Acute (2) Anemia Status: Acute (3) Elevated troponin Status: Acute (4) Hyperkalemia Status: Acute Comment Review of Relevant I have reviewed the following items medardo (where applicable) has been applied. Labs Laboratory Tests Test 06/22/18 19:45 06/22/18 21:00 06/23/18 04:15 06/23/18 05:00 Hepatitis B Surface Antigen Negative (Negative) Platelet Count 343 x10^3/uL (140-400) 378 x10^3/uL (140-400) Prothrombin Time 14.1 SEC (11.7-14.0) Prothromb Time International Ratio 1.1 (0.8-1.1) Lactic Acid Level 1.1 mmol/L (0.4-2.0) Troponin I Quantitative 0.160 ng/mL (0.000-0.055) White Blood Count 14.1 x10^3/uL (4.0-11.0) Red Blood Count 2.08 x10^6/uL (4.30-5.70) Hemoglobin 6.4 g/dL (13.0-17.5) Hematocrit 18.8 % (39.0-53.0) Mean Corpuscular Volume 90 fL (79-100) Mean Corpuscular Hemoglobin 31 pg (25-35) Mean Corpuscular Hemoglobin Concent 34 g/dL (31-37) Red Cell Distribution Width 16.4 % (11.5-14.5) Neutrophils (%) (Auto) 85 % (31-73) Lymphocytes (%) (Auto) 9 % (24-48) Monocytes (%) (Auto) 6 % (0-9) Eosinophils (%) (Auto) 0 % (0-3) Basophils (%) (Auto) 0 % (0-3) Neutrophils # (Auto) 12.0 x10^3uL (1.8-7.7) Lymphocytes # (Auto) 1.3 x10^3/uL (1.0-4.8) Monocytes # (Auto) 0.8 x10^3/uL (0.0-1.1) Eosinophils # (Auto) 0.0 x10^3/uL (0.0-0.7) Basophils # (Auto) 0.0 x10^3/uL (0.0-0.2) Sodium Level 140 mmol/L (136-145) Potassium Level 4.0 mmol/L (3.5-5.1) Chloride Level 101 mmol/L (98-107) Carbon Dioxide Level 26 mmol/L (21-32) Anion Gap 13 (6-14) Blood Urea Nitrogen 58 mg/dL (8-26) Creatinine 9.1 mg/dL (0.7-1.3) Estimated GFR (Cockcroft-Gault) 6.3 Glucose Level 113 mg/dL (70-99) Uric Acid 4.1 mg/dL (3.5-7.2) Calcium Level 7.3 mg/dL (8.5-10.1) Phosphorus Level 8.0 mg/dL (2.6-4.7) Magnesium Level 1.8 mg/dL (1.8-2.4) Creatine Kinase 96 U/L (39-308) Hepatitis B Surface Antibody, Quant 22.0 mIU/mL (Immunity>9.9) Hepatitis B Core Total Antibody Negative (Negative) Urine Collection Type Unknown Urine Color Yellow Urine Clarity Clear Urine pH 7.0 Urine Specific [place] 1.015 Urine Protein >=300 mg/dL (NEG-TRACE) Urine Glucose (UA) Negative mg/dL (NEG) Urine Ketones (Stick) Trace mg/dL (NEG) Urine Blood Large (NEG) Urine Nitrite Negative (NEG) Urine Bilirubin Negative (NEG) Urine Urobilinogen Dipstick 0.2 mg/dL (0.2 mg/dL) Urine Leukocyte Esterase Small (NEG) Urine RBC >40 /HPF (0-2) Urine WBC 11-20 /HPF (0-4) Urine Squamous Epithelial Cells Few /LPF Urine Amorphous Sediment Present /HPF Urine Bacteria Few /HPF (0-FEW) Urine Hyaline Casts Moderate /HPF Urine Opiates Screen Pos (NEG) Urine Methadone Screen Neg (NEG) Urine Barbiturates Neg (NEG) Urine Phencyclidine Screen Neg (NEG) Urine Amphetamine/Methamphetamine Neg (NEG) Urine Benzodiazepines Screen Pos (NEG) Urine Cocaine Screen Neg (NEG) Urine Cannabinoids Screen Neg (NEG) Urine Ethyl Alcohol Neg (NEG) Test 06/23/18 17:50 06/24/18 04:35 Random Vancomycin Level 13.6 mcg/mL White Blood Count 13.5 x10^3/uL (4.0-11.0) Red Blood Count 2.42 x10^6/uL (4.30-5.70) Hemoglobin 7.3 g/dL (13.0-17.5) Hematocrit 21.6 % (39.0-53.0) Mean Corpuscular Volume 89 fL (79-100) Mean Corpuscular Hemoglobin 30 pg (25-35) Mean Corpuscular Hemoglobin Concent 34 g/dL (31-37) Red Cell Distribution Width 15.6 % (11.5-14.5) Platelet Count 325 x10^3/uL (140-400) Sodium Level 138 mmol/L (136-145) Potassium Level 3.4 mmol/L (3.5-5.1) Chloride Level 100 mmol/L (98-107) Carbon Dioxide Level 24 mmol/L (21-32) Anion Gap 14 (6-14) Blood Urea Nitrogen 71 mg/dL (8-26) Creatinine 10.1 mg/dL (0.7-1.3) Estimated GFR (Cockcroft-Gault) 5.6 Glucose Level 139 mg/dL (70-99) Calcium Level 6.7 mg/dL (8.5-10.1) Phosphorus Level 7.9 mg/dL (2.6-4.7) Iron Level 70 ug/dL (65-175) Total Iron Binding Capacity 126 ug/dL (250-450) Iron Saturation 56 % (15-34) Ferritin 407 ng/mL (26-388) Albumin 1.8 g/dL (3.4-5.0) Laboratory Tests Test 06/23/18 17:50 06/24/18 04:35 Random Vancomycin Level 13.6 mcg/mL White Blood Count 13.5 x10^3/uL (4.0-11.0) Red Blood Count 2.42 x10^6/uL (4.30-5.70) Hemoglobin 7.3 g/dL (13.0-17.5) Hematocrit 21.6 % (39.0-53.0) Mean Corpuscular Volume 89 fL (79-100) Mean Corpuscular Hemoglobin 30 pg (25-35) Mean Corpuscular Hemoglobin Concent 34 g/dL (31-37) Red Cell Distribution Width 15.6 % (11.5-14.5) Platelet Count 325 x10^3/uL (140-400) Sodium Level 138 mmol/L (136-145) Potassium Level 3.4 mmol/L (3.5-5.1) Chloride Level 100 mmol/L (98-107) Carbon Dioxide Level 24 mmol/L (21-32) Anion Gap 14 (6-14) Blood Urea Nitrogen 71 mg/dL (8-26) Creatinine 10.1 mg/dL (0.7-1.3) Estimated GFR (Cockcroft-Gault) 5.6 Glucose Level 139 mg/dL (70-99) Calcium Level 6.7 mg/dL (8.5-10.1) Phosphorus Level 7.9 mg/dL (2.6-4.7) Iron Level 70 ug/dL (65-175) Total Iron Binding Capacity 126 ug/dL (250-450) Iron Saturation 56 % (15-34) Ferritin 407 ng/mL (26-388) Albumin 1.8 g/dL (3.4-5.0) Microbiology 06/22/18 Blood Culture - Preliminary, Resulted NO GROWTH AFTER 1 DAY Medications Current Medications Sodium Chloride 1,000 ml @ 1,000 mls/hr 1X ONCE IV Last administered on 06/22/18at 15:55; Start 06/22/18 at 15:15; Stop 06/22/18 at 16:14; Status DC Ondansetron HCl (Zofran) 4 mg 1X ONCE IM Last administered on 06/22/18at 15:54; Start 06/22/18 at 15:15; Stop 06/22/18 at 15:40; Status DC Dexamethasone Sodium Phosphate (Decadron) 10 mg 1X ONCE IV Last administered on 06/22/18at 15:54; Start 06/22/18 at 15:30; Stop 06/22/18 at 15:40; Status DC Iohexol (Omnipaque 300 Mg/ml) 75 ml 1X ONCE IV Last administered on 06/22/18 16:00; Start 06/22/18 at 16:00; Stop 06/22/18 at 16:01; Status DC Info (CONTRAST GIVEN -- Rx MONITORING) 1 each PRN DAILY PRN MC SEE COMMENTS; Start 06/22/18 at 16:00; Stop 06/24/18 at 15:59 Calcium Gluconate (Calcium Gluconate) 3,000 mg 1X ONCE IVP Last administered on 06/22/18at 16:39; Start 06/22/18 at 16:00; Stop 06/22/18 at 16:01; Status DC Sodium Bicarbonate (Sodium Bicarb Adult 8.4% Syr) 50 meq 1X ONCE IV Last administered on 06/22/18at 16:40; Start 06/22/18 at 16:00; Stop 06/22/18 at 16:01; Status DC Dextrose (Dextrose 50%-Water Syringe) 25 gm 1X ONCE IV Last administered on 06/22/18 16:40; Start 06/22/18 at 16:00; Stop 06/22/18 at 16:01; Status DC Insulin Human Regular (HumuLIN R VIAL) 10 unit 1X ONCE IV Last administered on 06/22/18 16:42; Start 06/22/18 at 16:00; Stop 06/22/18 at 16:01; Status DC Sodium Polystyrene Sulfonate (Kayexalate) 60 gm 1X ONCE PO Last administered on 06/22/18 17:41; Start 06/22/18 at 16:00; Stop 06/22/18 at 16:01; Status DC Sodium Chloride 1,000 ml @ 1,000 mls/hr Q1H IV Last administered on 06/22/18at 17:02; Start 06/22/18 at 15:50; Stop 06/22/18 at 16:49; Status DC Sodium Chloride 1,000 ml @ 100 mls/hr Q10H IV Last administered on 06/22/18at 22:08; Start 06/22/18 at 15:50; Stop 06/23/18 at 01:49; Status DC Vancomycin HCl (Vanco Per Pharmacy) 1 each PRN DAILY PRN MC SEE COMMENTS Last administered on 06/24/18at 15:29; Start 06/22/18 at 16:00 Piperacillin Sod/ Tazobactam Sod (Zosyn Per Pharmacy) 1 each PRN DAILY PRN MC SEE COMMENTS; Start 06/22/18 at 16:00 Piperacillin Sod/ Tazobactam Sod 2.25 gm/Sodium Chloride 50 ml @ 100 mls/hr 1X ONCE IV Last administered on 06/22/18at 16:48; Start 06/22/18 at 16:15; Stop 06/22/18 at 16:44; Status DC Vancomycin HCl 1.75 gm/Sodium Chloride 500 ml @ 250 mls/hr 1X ONCE IV ; Start 06/22/18 at 16:15; Stop 06/22/18 at 18:14; Status Cancel Vancomycin HCl 1.5 gm/Sodium Chloride 500 ml @ 250 mls/hr 1X ONCE IV Last administered on 06/22/18at 16:59; Start 06/22/18 at 16:15; Stop 06/22/18 at 18:14; Status DC Lidocaine/Sodium Bicarbonate (Buffered Lidocaine 1%) 3 ml STK-MED ONCE .ROUTE ; Start 06/22/18 at 16:10; Stop 06/22/18 at 16:11; Status DC Hydrocortisone Sodium Succinate (Solu-CORTEF) 100 mg Q8HRS IV Last administered on 06/24/18at 14:39; Start 06/22/18 at 16:30 Ondansetron HCl (Zofran) 4 mg PRN Q8HRS PRN IV NAUSEA/VOMITING; Start 06/22/18 at 16:30; Stop 06/23/18 at 16:29; Status DC Fentanyl Citrate (Fentanyl 2ml Vial) 50 mcg PRN Q1HR PRN IV PAIN Last administered on 06/23/18at 08:21; Start 06/22/18 at 16:30; Stop 06/23/18 at 13:58; Status DC Hydrocortisone Sodium Succinate (Solu-CORTEF) 100 mg 1X ONCE IV ; Start 06/22/18 at 17:00; Stop 06/22/18 at 17:00; Status DC Lidocaine/Sodium Bicarbonate (Buffered Lidocaine 1%) 5 ml 1X ONCE INJ Last administered on 06/22/18at 16:45; Start 06/22/18 at 16:45; Stop 06/22/18 at 16:46; Status DC Piperacillin Sod/ Tazobactam Sod 2.25 gm/Sodium Chloride 50 ml @ 100 mls/hr Q8HRS IV Last administered on 06/24/18 14:38; Start 06/22/18 at 23:00 Vancomycin HCl (Vancomycin Random Level) 1 each 1X ONCE MC Last administered on 06/23/18 18:00; Start 06/23/18 at 18:00; Stop 06/23/18 at 18:01; Status DC Sodium Chloride 1,000 ml @ 1,000 mls/hr Q1H PRN IV hypotension; Start 06/22/18 at 18:15; Stop 06/23/18 at 00:14; Status DC Diphenhydramine HCl (Benadryl) 25 mg 1X PRN PRN IV ITCHING; Start 06/22/18 at 18:15; Stop 06/23/18 at 18:14; Status DC Diphenhydramine HCl (Benadryl) 25 mg 1X PRN PRN IV ITCHING; Start 06/22/18 at 18:15; Stop 06/23/18 at 18:14; Status DC Sodium Chloride 1,000 ml @ 400 mls/hr Q2H30M PRN IV PATENCY; Start 06/22/18 at 18:15; Stop 06/23/18 at 06:14; Status DC Info (PHARMACY MONITORING -- do not chart) 1 each PRN DAILY PRN MC SEE COMMENTS; Start 06/22/18 at 18:15 Sodium Chloride 1,000 ml @ 100 mls/hr Q10H IV Last administered on 06/23/18 08:48; Start 06/23/18 at 09:00; Stop 06/23/18 at 13:45; Status DC Cyanocobalamin (Vitamin B-12) 1,000 mcg DAILY PO Last administered on 06/24/18 11:29; Start 06/23/18 at 11:00 Multivitamins (Thera M Plus) 1 tab DAILY PO Last administered on 06/24/18 11:2 9; Start 06/23/18 at 11:00 Olanzapine (ZyPREXA) 20 mg QHS PO Last administered on 06/23/18 21:41; Start 06/23/18 at 21:00 Tramadol HCl (Ultram) 50 mg PRN Q6HRS PRN PO PAIN Last administered on 06/23/18 13:55; Start 06/23/18 at 13:45 Vancomycin HCl 1 gm/Sodium Chloride 250 ml @ 250 mls/hr 1X ONCE IV ; Start 06/24/18 at 16:00; Stop 06/24/18 at 16:59 Sodium Chloride 1,000 ml @ 100 mls/hr Q10H IV Last administered on 06/24/18at 14:38; Start 06/24/18 at 12:45 Lactobacillus Rhamnosus (Culturelle) 1 cap BID PO ; Start 06/24/18 at 21:00 Vancomycin HCl 500 mg/Sodium Chloride 100 ml @ 100 mls/hr ONCE ONCE IV ; Start 06/24/18 at 16:00; Stop 06/24/18 at 16:59; Status Cancel Active Scripts Active Reported Multivitamins (Multivitamin) 1 Each Tablet 1 Tab PO DAILY Vitamin B-12 (Cyanocobalamin (Vitamin B-12)) 1,000 Mcg Tablet 1 Tab PO DAILY Olanzapine 20 Mg Tablet 20 Mg PO QHS Cortef (Hydrocortisone) 20 Mg Tablet 20 Mg PO DAILY Vitals/I & O Vital Sign - Last 24 Hours 06/23/18 06/23/18 06/23/18 06/24/18 19:00 20:00 23:00 03:00 Temp 98.6 98.7 98.3 98.6 98.7 98.3 Pulse 97 92 79 Resp 20 18 16 B/P (MAP) 132/92 (105) 132/83 (99) 124/81 (95) Pulse Ox 95 91 90 O2 Delivery Nasal Cannula O2 Flow Rate 4.0 06/24/18 06/24/18 06/24/18 06/24/18 07:00 08:00 11:00 12:00 Temp 98.3 98.3 98.3 98.3 Pulse 74 88 Resp 18 18 B/P (MAP) 127/82 (97) 127/79 (95) Pulse Ox 91 92 O2 Delivery Room Air Nasal Cannula Room Air Room Air O2 Flow Rate 4.0 4.0 Intake and Output 06/23/18 06/23/18 06/24/18 15:00 23:00 07:00 Intake Total 2170 ml 60 ml 220 ml Output Total 200 ml Balance 1970 ml 60 ml 220 ml Nutrition Consultation Dietary Evaluation: Recommendations by RD: Increase Calorie Intake Comments: REC continue w/renal diet as ordered; will discuss protein supplementation if pt needs additional dialysis Expected Outcomes/Goals: PO intake to meet >75% est needs Malnutrition Findings: Body Fat Depletion (Non Severe: Mild Depletion Weight Status: Appropriate PEYTON VAZQUEZ MD June 24, 2018 15:47
[2018-06-24] MEDS ORDERED: VANCOMYCIN 500 MG in IV NORMAL SALINE 100ML 100 ML IV ONE (16:00)
[2018-06-24] MEDS ORDERED: VANCOMYCIN 1 GM in IV NORMAL SALINE 250ML 250 ML IV ONE (16:00)
[2018-06-24] MEDS ORDERED: IV NORMAL SALINE 1000ML BAG 1,000 ML IV PRN ×2 (16:59)
[2018-06-24] MEDS ORDERED: 0.9 % SODIUM CHLORIDE 10 ML DISP.SYRIN. IV PRN ×2 (17:00)
[2018-06-24] MEDS ORDERED: DIALYSIS PATIENT. MC PRN ×2 (17:00)
[2018-06-24] MEDS ORDERED: ALBUMIN HUMAN 25% 200 ML IV PRN (17:00)
[2018-06-24] MEDS: LACTOBACILLUS RHAMNOSUS GG 1 CAPSULE. PO SCH (22:10)
[2018-06-24] MEDS: OLANZapine 5 MG TABLET PO SCH (22:10)
--- NOTE | 2018-06-24 23:00 | NUR ---
Pt's schedule 2245 NS was not administered due to current bag still infusing.
[2018-06-24 23:49] VITALS: BP 137/94
[2018-06-25 01:38] LABS: BILIRUBIN,URINE NEGATIVE (NEG); CLARITY,URINE CLEAR; COLOR,URINE YELLOW; NITRITE,URINE NEGATIVE (NEG); PH,URINE 7.5; PROTEIN,URINE >=300 mg/dL (NEG-TRACE); UROBILINOGEN,URINE 0.2 mg/dL (0.2 mg/dL)
[2018-06-25 01:58] LABS: BACTERIA,URINE FEW /HPF (0-FEW); RBC,URINE TNTC /HPF (0-2); SQUAMOUS EPITHELIAL CELL,UR FEW /LPF
[2018-06-25 02:29] LABS: CREATININE,RANDOM URINE 112.1 mg/dL (Not Establ.)
[2018-06-25 03:42] VITALS: BP 138/85
[2018-06-25] MEDS: PIPERACILLIN/TAZOBACTAM 2.25 GM in IV NORMAL SALINE 50ML 50 ML IV SCH ×3 (05:28→21:26)
[2018-06-25] MEDS: IV NORMAL SALINE 1000ML BAG 1,000 ML IV SCH ×2 (05:28→18:45)
[2018-06-25] MEDS: HYDROCORTISONE SOD SUCC/PF 100 MG/2 ML VIAL. IV SCH ×3 (05:29→21:25)
[2018-06-25 05:34] LABS: CREATININE 6.9 mg/dL (0.7-1.3); GFR 8.7; MAGNESIUM 1.9 mg/dL (1.8-2.4); POTASSIUM 3.1 mmol/L (3.5-5.1)
[2018-06-25 05:43] LABS: ALBUMIN 1.8 g/dL (3.4-5.0); CALCIUM 6.6 mg/dL (8.5-10.1); GFR 8.6; PHOSPHORUS 5.7 mg/dL (2.6-4.7); POTASSIUM 3.2 mmol/L (3.5-5.1)
[2018-06-25 07:00] VITALS: BP 139/85
[2018-06-25 11:00] VITALS: BP 139/87
--- NOTE | 2018-06-25 12:19 | PDOC ---
Renal-Progress Notes Subjective Notes Notes NO NEW COMPLAINTS History of Present Illness Hx of present illness STABLE Vitals Vitals Vital Signs Date Time Temp Pulse Resp B/P (MAP) Pulse Ox O2 Delivery O2 Flow Rate FiO2 06/25/18 08:00 Room Air 1.5 06/25/18 07:00 98.5 70 20 139/85 (103) 94 98.5 Weight Weight [ ] I.O. Intake and Output Intake and Output 06/25/18 07:00 Intake Total 1750 ml Output Total 450 ml Balance 1300 ml Intake Oral 1700 ml IV Total 50 ml Output Urine Total 450 ml # Voids 1 # Bowel Movements 2 Labs Labs Laboratory Tests Test 06/25/18 01:14 06/25/18 04:30 Urine Collection Type Unknown Urine Color Yellow Urine Clarity Clear Urine pH 7.5 Urine Specific [place] 1.015 Urine Protein >=300 mg/dL (NEG-TRACE) Urine Glucose (UA) 100 mg/dL (NEG) Urine Ketones (Stick) Negative mg/dL (NEG) Urine Blood Large (NEG) Urine Nitrite Negative (NEG) Urine Bilirubin Negative (NEG) Urine Urobilinogen Dipstick 0.2 mg/dL (0.2 mg/dL) Urine Leukocyte Esterase Small (NEG) Urine RBC Tntc /HPF (0-2) Urine WBC 1-4 /HPF (0-4) Urine Squamous Epithelial Cells Few /LPF Urine Bacteria Few /HPF (0-FEW) Urine Random Creatinine 112.1 mg/dL (Not Establ.) Urine Random Total Protein 466.6 mg/dL (Not Establ.) Urine Protein/Creatinine Ratio 4162 mg/g (0-200) Sodium Level 140 mmol/L (136-145) Potassium Level 3.1 mmol/L (3.5-5.1) Chloride Level 104 mmol/L (98-107) Carbon Dioxide Level 28 mmol/L (21-32) Anion Gap 8 (6-14) Blood Urea Nitrogen 47 mg/dL (8-26) Creatinine 6.9 mg/dL (0.7-1.3) Estimated GFR (Cockcroft-Gault) 8.7 Glucose Level 129 mg/dL (70-99) Calcium Level 7.0 mg/dL (8.5-10.1) Phosphorus Level 5.7 mg/dL (2.6-4.7) Magnesium Level 1.9 mg/dL (1.8-2.4) Albumin 1.8 g/dL (3.4-5.0) Micro Micro Microbiology 06/22/18 Blood Culture - Preliminary, Resulted NO GROWTH AFTER 2 DAYS Review of Systems Constitutional: yes: alert, oriented Ears/Nose/Throat: Yes: no symptom reported Eyes: Yes: no symptom reported Pulmonary: Yes no symptom reported Cardiovascular: Yes no symptom reported Gastrointestional: Yes: no symptom reported Genitourinary: Yes: no symptom reported Musculoskeletal: Yes: no symptom reported Skin: Yes no symptom reported Psychiatric/Neurological: Yes: no symptom reported Endocrine: Yes: no symptom reported Physical Exam General Appearance: no apparent distress Skin: warm Respiratory: bilateral CTA Heart: S1S2 Abdomen: soft, bowel sounds present Genitourinary: bladder flat Extremities: pulses present Neurology: alert, oriented Assessment Assessment IMP [id number] NEPHRITIS HX OF ADRENAL INSUFFICIENCY DEHYDRATION HEP B LOW K PLAN STEROIDS HYDRATION REPLACE K RENAL BIOPSY-RENAL SIZE LESS SUGGESTIVE OF CHRONIC DZ WILL ASK SW TO SET UP OP HD WILL HAVE IR CONVERT TEMP TO TUNNELED HD CATHETER CHECK PO4 HD TOMORROW START [facility] WILL LOOK FOR RENAL RECOVERY D/W ATTENDING MARBIN SORIANO MD June 25, 2018 12:19
--- NOTE | 2018-06-25 14:13 | PDOC ---
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, Hyperkalemia - Dialyzed last night Vomiting/Diarrhea - improved after dialysis Anemia - getting blood now Schizophrenia - cont home meds Smoker - advised to quit History of Present Illness History of Present Illness discussed with renal, will get biopsy tomorrow, cont current HD in AM still lethargic, weak hgb better labs improving he still feels terrible cont HD Vitals Vitals Vital Signs Date Time Temp Pulse Resp B/P (MAP) Pulse Ox O2 Delivery O2 Flow Rate FiO2 06/25/18 12:00 Room Air 1.5 06/25/18 11:00 98.7 75 20 139/87 (104) 95 98.7 Physical Exam General: Alert, Cooperative Heart: Regular rate, Normal S1, Normal S2 Lungs: Wheezing Abdomen: Normal bowel sounds, Soft, No tenderness, No hepatosplenomegaly Extremities: No clubbing, No cyanosis Skin: No rashes, No breakdown Labs LABS Laboratory Tests Test 06/25/18 01:14 06/25/18 04:30 Urine Collection Type Unknown Urine Color Yellow Urine Clarity Clear Urine pH 7.5 Urine Specific [place] 1.015 Urine Protein >=300 mg/dL (NEG-TRACE) Urine Glucose (UA) 100 mg/dL (NEG) Urine Ketones (Stick) Negative mg/dL (NEG) Urine Blood Large (NEG) Urine Nitrite Negative (NEG) Urine Bilirubin Negative (NEG) Urine Urobilinogen Dipstick 0.2 mg/dL (0.2 mg/dL) Urine Leukocyte Esterase Small (NEG) Urine RBC Tntc /HPF (0-2) Urine WBC 1-4 /HPF (0-4) Urine Squamous Epithelial Cells Few /LPF Urine Bacteria Few /HPF (0-FEW) Urine Random Creatinine 112.1 mg/dL (Not Establ.) Urine Random Total Protein 466.6 mg/dL (Not Establ.) Urine Protein/Creatinine Ratio 4162 mg/g (0-200) Sodium Level 140 mmol/L (136-145) Potassium Level 3.1 mmol/L (3.5-5.1) Chloride Level 104 mmol/L (98-107) Carbon Dioxide Level 28 mmol/L (21-32) Anion Gap 8 (6-14) Blood Urea Nitrogen 47 mg/dL (8-26) Creatinine 6.9 mg/dL (0.7-1.3) Estimated GFR (Cockcroft-Gault) 8.7 Glucose Level 129 mg/dL (70-99) Calcium Level 7.0 mg/dL (8.5-10.1) Phosphorus Level 5.7 mg/dL (2.6-4.7) Magnesium Level 1.9 mg/dL (1.8-2.4) Albumin 1.8 g/dL (3.4-5.0) Review of Systems Review of Systems did not sleep well, would like to try ambien Assessment and Plan Assessmemt and Plan Problems Medical Problems: (1) ARPIT (acute kidney injury) Status: Acute (2) Anemia Status: Acute (3) Elevated troponin Status: Acute (4) Hyperkalemia Status: Acute Comment Review of Relevant I have reviewed the following items medardo (where applicable) has been applied. Labs Laboratory Tests Test 06/23/18 17:50 06/24/18 04:35 06/25/18 01:14 06/25/18 04:30 Random Vancomycin Level 13.6 mcg/mL White Blood Count 13.5 x10^3/uL (4.0-11.0) Red Blood Count 2.42 x10^6/uL (4.30-5.70) Hemoglobin 7.3 g/dL (13.0-17.5) Hematocrit 21.6 % (39.0-53.0) Mean Corpuscular Volume 89 fL (79-100) Mean Corpuscular Hemoglobin 30 pg (25-35) Mean Corpuscular Hemoglobin Concent 34 g/dL (31-37) Red Cell Distribution Width 15.6 % (11.5-14.5) Platelet Count 325 x10^3/uL (140-400) Sodium Level 138 mmol/L (136-145) 140 mmol/L (136-145) Potassium Level 3.4 mmol/L (3.5-5.1) 3.1 mmol/L (3.5-5.1) Chloride Level 100 mmol/L (98-107) 104 mmol/L (98-107) Carbon Dioxide Level 24 mmol/L (21-32) 28 mmol/L (21-32) Anion Gap 14 (6-14) 8 (6-14) Blood Urea Nitrogen 71 mg/dL (8-26) 47 mg/dL (8-26) Creatinine 10.1 mg/dL (0.7-1.3) 6.9 mg/dL (0.7-1.3) Estimated GFR (Cockcroft-Gault) 5.6 8.7 Glucose Level 139 mg/dL (70-99) 129 mg/dL (70-99) Calcium Level 6.7 mg/dL (8.5-10.1) 7.0 mg/dL (8.5-10.1) Phosphorus Level 7.9 mg/dL (2.6-4.7) 5.7 mg/dL (2.6-4.7) Iron Level 70 ug/dL (65-175) Total Iron Binding Capacity 126 ug/dL (250-450) Iron Saturation 56 % (15-34) Ferritin 407 ng/mL (26-388) Albumin 1.8 g/dL (3.4-5.0) 1.8 g/dL (3.4-5.0) Urine Collection Type Unknown Urine Color Yellow Urine Clarity Clear Urine pH 7.5 Urine Specific [place] 1.015 Urine Protein >=300 mg/dL (NEG-TRACE) Urine Glucose (UA) 100 mg/dL (NEG) Urine Ketones (Stick) Negative mg/dL (NEG) Urine Blood Large (NEG) Urine Nitrite Negative (NEG) Urine Bilirubin Negative (NEG) Urine Urobilinogen Dipstick 0.2 mg/dL (0.2 mg/dL) Urine Leukocyte Esterase Small (NEG) Urine RBC Tntc /HPF (0-2) Urine WBC 1-4 /HPF (0-4) Urine Squamous Epithelial Cells Few /LPF Urine Bacteria Few /HPF (0-FEW) Urine Random Creatinine 112.1 mg/dL (Not Establ.) Urine Random Total Protein 466.6 mg/dL (Not Establ.) Urine Protein/Creatinine Ratio 4162 mg/g (0-200) Magnesium Level 1.9 mg/dL (1.8-2.4) Laboratory Tests Test 06/25/18 01:14 06/25/18 04:30 Urine Collection Type Unknown Urine Color Yellow Urine Clarity Clear Urine pH 7.5 Urine Specific [place] 1.015 Urine Protein >=300 mg/dL (NEG-TRACE) Urine Glucose (UA) 100 mg/dL (NEG) Urine Ketones (Stick) Negative mg/dL (NEG) Urine Blood Large (NEG) Urine Nitrite Negative (NEG) Urine Bilirubin Negative (NEG) Urine Urobilinogen Dipstick 0.2 mg/dL (0.2 mg/dL) Urine Leukocyte Esterase Small (NEG) Urine RBC Tntc /HPF (0-2) Urine WBC 1-4 /HPF (0-4) Urine Squamous Epithelial Cells Few /LPF Urine Bacteria Few /HPF (0-FEW) Urine Random Creatinine 112.1 mg/dL (Not Establ.) Urine Random Total Protein 466.6 mg/dL (Not Establ.) Urine Protein/Creatinine Ratio 4162 mg/g (0-200) Sodium Level 140 mmol/L (136-145) Potassium Level 3.1 mmol/L (3.5-5.1) Chloride Level 104 mmol/L (98-107) Carbon Dioxide Level 28 mmol/L (21-32) Anion Gap 8 (6-14) Blood Urea Nitrogen 47 mg/dL (8-26) Creatinine 6.9 mg/dL (0.7-1.3) Estimated GFR (Cockcroft-Gault) 8.7 Glucose Level 129 mg/dL (70-99) Calcium Level 7.0 mg/dL (8.5-10.1) Phosphorus Level 5.7 mg/dL (2.6-4.7) Magnesium Level 1.9 mg/dL (1.8-2.4) Albumin 1.8 g/dL (3.4-5.0) Microbiology 06/22/18 Blood Culture - Preliminary, Resulted NO GROWTH AFTER 2 DAYS Medications Current Medications Sodium Chloride 1,000 ml @ 1,000 mls/hr 1X ONCE IV Last administered on 06/22/18at 15:55; Start 06/22/18 at 15:15; Stop 06/22/18 at 16:14; Status DC Ondansetron HCl (Zofran) 4 mg 1X ONCE IM Last administered on 06/22/18at 15:54; Start 06/22/18 at 15:15; Stop 06/22/18 at 15:40; Status DC Dexamethasone Sodium Phosphate (Decadron) 10 mg 1X ONCE IV Last administered on 06/22/18at 15:54; Start 06/22/18 at 15:30; Stop 06/22/18 at 15:40; Status DC Iohexol (Omnipaque 300 Mg/ml) 75 ml 1X ONCE IV Last administered on 06/22/18 16:00; Start 06/22/18 at 16:00; Stop 06/22/18 at 16:01; Status DC Info (CONTRAST GIVEN -- Rx MONITORING) 1 each PRN DAILY PRN MC SEE COMMENTS; Start 06/22/18 at 16:00; Stop 06/24/18 at 15:59; Status DC Calcium Gluconate (Calcium Gluconate) 3,000 mg 1X ONCE IVP Last administered on 06/22/18at 16:39; Start 06/22/18 at 16:00; Stop 06/22/18 at 16:01; Status DC Sodium Bicarbonate (Sodium Bicarb Adult 8.4% Syr) 50 meq 1X ONCE IV Last administered on 06/22/18 16:40; Start 06/22/18 at 16:00; Stop 06/22/18 at 16:01; Status DC Dextrose (Dextrose 50%-Water Syringe) 25 gm 1X ONCE IV Last administered on 06/22/18 16:40; Start 06/22/18 at 16:00; Stop 06/22/18 at 16:01; Status DC Insulin Human Regular (HumuLIN R VIAL) 10 unit 1X ONCE IV Last administered on 06/22/18 16:42; Start 06/22/18 at 16:00; Stop 06/22/18 at 16:01; Status DC Sodium Polystyrene Sulfonate (Kayexalate) 60 gm 1X ONCE PO Last administered on 06/22/18 17:41; Start 06/22/18 at 16:00; Stop 06/22/18 at 16:01; Status DC Sodium Chloride 1,000 ml @ 1,000 mls/hr Q1H IV Last administered on 06/22/18 17:02; Start 06/22/18 at 15:50; Stop 06/22/18 at 16:49; Status DC Sodium Chloride 1,000 ml @ 100 mls/hr Q10H IV Last administered on 06/22/18 22:08; Start 06/22/18 at 15:50; Stop 06/23/18 at 01:49; Status DC Vancomycin HCl (Vanco Per Pharmacy) 1 each PRN DAILY PRN MC SEE COMMENTS Last administered on 06/24/18at 15:29; Start 06/22/18 at 16:00 Piperacillin Sod/ Tazobactam Sod (Zosyn Per Pharmacy) 1 each PRN DAILY PRN MC SEE COMMENTS; Start 06/22/18 at 16:00 Piperacillin Sod/ Tazobactam Sod 2.25 gm/Sodium Chloride 50 ml @ 100 mls/hr 1X ONCE IV Last administered on 06/22/18at 16:48; Start 06/22/18 at 16:15; Stop 06/22/18 at 16:44; Status DC Vancomycin HCl 1.75 gm/Sodium Chloride 500 ml @ 250 mls/hr 1X ONCE IV ; Start 06/22/18 at 16:15; Stop 06/22/18 at 18:14; Status Cancel Vancomycin HCl 1.5 gm/Sodium Chloride 500 ml @ 250 mls/hr 1X ONCE IV Last administered on 06/22/18at 16:59; Start 06/22/18 at 16:15; Stop 06/22/18 at 18:14; Status DC Lidocaine/Sodium Bicarbonate (Buffered Lidocaine 1%) 3 ml STK-MED ONCE .ROUTE ; Start 06/22/18 at 16:10; Stop 06/22/18 at 16:11; Status DC Hydrocortisone Sodium Succinate (Solu-CORTEF) 100 mg Q8HRS IV Last administered on 06/25/18at 05:29; Start 06/22/18 at 16:30 Ondansetron HCl (Zofran) 4 mg PRN Q8HRS PRN IV NAUSEA/VOMITING; Start 06/22/18 at 16:30; Stop 06/23/18 at 16:29; Status DC Fentanyl Citrate (Fentanyl 2ml Vial) 50 mcg PRN Q1HR PRN IV PAIN Last administered on 06/23/18at 08:21; Start 06/22/18 at 16:30; Stop 06/23/18 at 13:58; Status DC Hydrocortisone Sodium Succinate (Solu-CORTEF) 100 mg 1X ONCE IV ; Start 06/22/18 at 17:00; Stop 06/22/18 at 17:00; Status DC Lidocaine/Sodium Bicarbonate (Buffered Lidocaine 1%) 5 ml 1X ONCE INJ Last administered on 06/22/18at 16:45; Start 06/22/18 at 16:45; Stop 06/22/18 at 16:46; Status DC Piperacillin Sod/ Tazobactam Sod 2.25 gm/Sodium Chloride 50 ml @ 100 mls/hr Q8HRS IV Last administered on 06/25/18 05:28; Start 06/22/18 at 23:00 Vancomycin HCl (Vancomycin Random Level) 1 each 1X ONCE MC Last administered on 06/23/18at 18:00; Start 06/23/18 at 18:00; Stop 06/23/18 at 18:01; Status DC Sodium Chloride 1,000 ml @ 1,000 mls/hr Q1H PRN IV hypotension; Start 06/22/18 at 18:15; Stop 06/23/18 at 00:14; Status DC Diphenhydramine HCl (Benadryl) 25 mg 1X PRN PRN IV ITCHING; Start 06/22/18 at 18:15; Stop 06/23/18 at 18:14; Status DC Diphenhydramine HCl (Benadryl) 25 mg 1X PRN PRN IV ITCHING; Start 06/22/18 at 18:15; Stop 06/23/18 at 18:14; Status DC Sodium Chloride 1,000 ml @ 400 mls/hr Q2H30M PRN IV PATENCY; Start 06/22/18 at 18:15; Stop 06/23/18 at 06:14; Status DC Info (PHARMACY MONITORING -- do not chart) 1 each PRN DAILY PRN MC SEE COMMENTS; Start 06/22/18 at 18:15; Status Cancel Sodium Chloride 1,000 ml @ 100 mls/hr Q10H IV Last administered on 06/23/18 08:48; Start 06/23/18 at 09:00; Stop 06/23/18 at 13:45; Status DC Cyanocobalamin (Vitamin B-12) 1,000 mcg DAILY PO Last administered on 06/24/18 11:29; Start 06/23/18 at 11:00 Multivitamins (Thera M Plus) 1 tab DAILY PO Last administered on 06/24/18 11:29; Start 06/23/18 at 11:00 Olanzapine (ZyPREXA) 20 mg QHS PO Last administered on 06/24/18 22:10; Start 06/23/18 at 21:00 Tramadol HCl (Ultram) 50 mg PRN Q6HRS PRN PO PAIN Last administered on 5/3/19at 13:55; Start 06/23/18 at 13:45 Vancomycin HCl 1 gm/Sodium Chloride 250 ml @ 250 mls/hr 1X ONCE IV Last administered on 06/24/18at 16:00; Start 06/24/18 at 16:00; Stop 06/24/18 at 16:59; Status DC Sodium Chloride 1,000 ml @ 100 mls/hr Q10H IV Last administered on 06/25/18at 05:28; Start 06/24/18 at 12:45 Lactobacillus Rhamnosus (Culturelle) 1 cap BID PO Last administered on 06/24/18at 22:10; Start 06/24/18 at 21:00 Vancomycin HCl 500 mg/Sodium Chloride 100 ml @ 100 mls/hr ONCE ONCE IV ; Start 06/24/18 at 16:00; Stop 06/24/18 at 16:59; Status Cancel Sodium Chloride 1,000 ml @ 1,000 mls/hr Q1H PRN IV hypotension; Start 06/24/18 at 16:59; Stop 06/24/18 at 22:58; Status DC Albumin Human 200 ml @ 200 mls/hr 1X PRN PRN IV Hypotension; Start 06/24/18 at 17:00; Stop 06/24/18 at 22:59; Status DC Sodium Chloride (Normal Saline Flush) 10 ml 1X PRN PRN IV AP catheter pack; Start 06/24/18 at 17:00; Stop 06/25/18 at 16:59 Sodium Chloride (Normal Saline Flush) 10 ml 1X PRN PRN IV REGISTRATION SCHEDULING SPECIALIST catheter pack; Start 06/24/18 at 17:00; Stop 06/25/18 at 16:59 Sodium Chloride 1,000 ml @ 400 mls/hr Q2H30M PRN IV PATENCY; Start 06/24/18 at 16:59; Stop 06/25/18 at 04:58; Status DC Info (PHARMACY MONITORING -- do not chart) 1 each PRN DAILY PRN MC SEE COMMENTS; Start 06/24/18 at 17:00; Status Cancel Info (PHARMACY MONITORING -- do not chart) 1 each PRN DAILY PRN MC SEE COMMENTS; Start 06/24/18 at 17:00 Darbepoetin [place] (Aranesp) 60 mcg WEEKLYHS SQ ; Start 06/25/18 at 21:00 Active Scripts Active Reported Multivitamins (Multivitamin) 1 Each Tablet 1 Tab PO DAILY Vitamin B-12 (Cyanocobalamin (Vitamin B-12)) 1,000 Mcg Tablet 1 Tab PO DAILY Olanzapine 20 Mg Tablet 20 Mg PO QHS Cortef (Hydrocortisone) 20 Mg Tablet 20 Mg PO DAILY Vitals/I & O Vital Sign - Last 24 Hours 06/24/18 06/24/18 06/24/18 06/24/18 15:00 16:22 22:46 23:49 Temp 98.4 98.4 98.4 98.4 Pulse 78 71 Resp 18 18 B/P (MAP) 133/87 (102) 137/94 (108) Pulse Ox 96 92 O2 Delivery Nasal Cannula Room Air Room Air Nasal Cannula O2 Flow Rate 1.5 1.5 1.5 06/25/18 06/25/18 06/25/18 06/25/18 03:42 07:00 08:00 11:00 Temp 98.1 98.5 98.7 98.1 98.5 98.7 Pulse 69 70 75 Resp 18 20 20 B/P (MAP) 138/85 (102) 139/85 (103) 139/87 (104) Pulse Ox 91 94 95 O2 Delivery Nasal Cannula Nasal Cannula Room Air Room Air O2 Flow Rate 1.5 1.5 1.5 06/25/18 12:00 O2 Delivery Room Air O2 Flow Rate 1.5 Intake and Output 06/24/18 06/24/18 06/25/18 15:00 23:00 07:00 Intake Total 540 ml 570 ml 640 ml Output Total 450 ml Balance 540 ml 570 ml 190 ml Nutrition Consultation Dietary Evaluation: Recommendations by RD: Increase Calorie Intake Comments: REC continue w/renal diet as ordered; will discuss protein supplementation if pt needs additional dialysis Expected Outcomes/Goals: PO intake to meet >75% est needs Malnutrition Findings: Body Fat Depletion (Non Severe: Mild Depletion Weight Status: Appropriate PEYTON VAZQUEZ MD June 25, 2018 14:13
[2018-06-25] MEDS: LACTOBACILLUS RHAMNOSUS GG 1 CAPSULE. PO SCH (14:19)
[2018-06-25] MEDS: MULTIVITAMIN with MINERAL TABLET. PO SCH (14:19)
[2018-06-25] MEDS: CYANOCOBALAMIN (VITAMIN B-12) 1,000 MCG TABLET. PO SCH (14:19)
[2018-06-25 15:00] VITALS: BP 140/88
[2018-06-25] MEDS: VANCOMYCIN PER PHARMACY MC PRN ×2 (16:08→16:31)
[2018-06-25 19:50] VITALS: BP 139/90
[2018-06-25] MEDS ORDERED: DARBEPOETIN ALFA 60 MCG/0.3 ML DISP.SYRIN. SQ SCH (21:00)
[2018-06-25] MEDS: OLANZapine 5 MG TABLET PO SCH (21:25)
[2018-06-25] MEDS: ZOLPIDEM 5 MG TABLET. PO PRN (21:26)
[2018-06-25] MEDS: traMADol 50 MG TABLET PO PRN (21:42)
[2018-06-25 23:35] VITALS: BP 130/91
[2018-06-26 03:24] VITALS: BP 136/58
[2018-06-26 04:32] LABS: HEMATOCRIT 23.9 % (39.0-53.0); RED BLOOD COUNT 2.61 x10^6/uL (4.30-5.70); RED CELL DISTRIBUTION WIDTH 15.5 % (11.5-14.5); WHITE BLOOD COUNT 9.3 x10^3/uL (4.0-11.0)
[2018-06-26] MEDS: IV NORMAL SALINE 1000ML BAG 1,000 ML IV SCH ×2 (04:45→14:45)
[2018-06-26 05:25] LABS: ALBUMIN 1.8 g/dL (3.4-5.0); CALCIUM 6.3 mg/dL (8.5-10.1); CREATININE 7.6 mg/dL (0.7-1.3); GFR 7.8; PHOSPHORUS 7.2 mg/dL (2.6-4.7); POTASSIUM 3.1 mmol/L (3.5-5.1)
[2018-06-26] MEDS: PIPERACILLIN/TAZOBACTAM 2.25 GM in IV NORMAL SALINE 50ML 50 ML IV SCH ×3 (05:46→20:32)
[2018-06-26] MEDS: HYDROCORTISONE SOD SUCC/PF 100 MG/2 ML VIAL. IV SCH ×3 (05:46→20:31)
[2018-06-26 07:00] VITALS: BP 135/87
[2018-06-26] MEDS: CYANOCOBALAMIN (VITAMIN B-12) 1,000 MCG TABLET. PO SCH (07:55)
[2018-06-26] MEDS: MULTIVITAMIN with MINERAL TABLET. PO SCH (07:55)
[2018-06-26 11:00] VITALS: BP 148/100
--- NOTE | 2018-06-26 11:05 | PDOC ---
Renal-Progress Notes Subjective Notes Notes NO NEW COMPLAINTS History of Present Illness Hx of present illness STABLE Vitals Vitals Vital Signs Date Time Temp Pulse Resp B/P (MAP) Pulse Ox O2 Delivery O2 Flow Rate FiO2 06/26/18 11:00 98.1 72 18 148/100 (116) 96 Room Air 98.1 06/25/18 12:00 1.5 Weight Weight [ ] I.O. Intake and Output Intake and Output 06/26/18 07:00 Intake Total 1060 ml Output Total 200 ml Balance 860 ml Intake Oral 1010 ml IV Total 50 ml Output Urine Total 200 ml Labs Labs Laboratory Tests Test 06/26/18 03:58 White Blood Count 9.3 x10^3/uL (4.0-11.0) Red Blood Count 2.61 x10^6/uL (4.30-5.70) Hemoglobin 8.0 g/dL (13.0-17.5) Hematocrit 23.9 % (39.0-53.0) Mean Corpuscular Volume 92 fL (79-100) Mean Corpuscular Hemoglobin 31 pg (25-35) Mean Corpuscular Hemoglobin Concent 33 g/dL (31-37) Red Cell Distribution Width 15.5 % (11.5-14.5) Platelet Count 315 x10^3/uL (140-400) Sodium Level 138 mmol/L (136-145) Potassium Level 3.1 mmol/L (3.5-5.1) Chloride Level 103 mmol/L (98-107) Carbon Dioxide Level 24 mmol/L (21-32) Anion Gap 11 (6-14) Blood Urea Nitrogen 55 mg/dL (8-26) Creatinine 7.6 mg/dL (0.7-1.3) Estimated GFR (Cockcroft-Gault) 7.8 Glucose Level 132 mg/dL (70-99) Calcium Level 6.3 mg/dL (8.5-10.1) Phosphorus Level 7.2 mg/dL (2.6-4.7) Magnesium Level 2.0 mg/dL (1.8-2.4) Albumin 1.8 g/dL (3.4-5.0) Micro Micro Microbiology 06/22/18 Blood Culture - Preliminary, Resulted NO GROWTH AFTER 3 DAYS Review of Systems Constitutional: yes: alert, oriented Ears/Nose/Throat: Yes: no symptom reported Eyes: Yes: no symptom reported Pulmonary: Yes no symptom reported Cardiovascular: Yes no symptom reported Gastrointestional: Yes: no symptom reported Genitourinary: Yes: no symptom reported Musculoskeletal: Yes: no symptom reported Skin: Yes no symptom reported Psychiatric/Neurological: Yes: no symptom reported Endocrine: Yes: no symptom reported Physical Exam General Appearance: no apparent distress Skin: warm Respiratory: bilateral CTA Heart: S1S2 Abdomen: soft, bowel sounds present Genitourinary: bladder flat Extremities: pulses present Neurology: alert, oriented Assessment Assessment IMP [id number] NEPHRITIS HX OF ADRENAL INSUFFICIENCY DEHYDRATION HEP B LOW K PLAN STEROIDS HYDRATION REPLACE K NEEDED RENAL BIOPSY-RENAL SIZE LESS SUGGESTIVE OF CHRONIC DZ WILL ASK SW TO SET UP OP HD WILL HAVE IR CONVERT TEMP TO TUNNELED HD CATHETER START BINDERS HD TODAY UF TOLERATED TO DW ON [facility] WILL LOOK FOR RENAL RECOVERY D/W ATTENDING MARBIN SORIANO MD June 26, 2018 11:05
[2018-06-26] MEDS ORDERED: LIDOCAINE 1%/EPI 1:100,000 20 ML VIAL. ONE (11:31)
--- NOTE | 2018-06-26 11:37 | PDOC ---
PROGRESS NOTES Chief Complaint Chief Complaint ESRD-waiting for chair crime Anemia of ESRD Hyperkalemia POA Elevated troponin in the background of AK I Mental disorder-previous [facility] admission Hypokalemia HBsAg positive Multiple tattoos Smoker History of Present Illness History of Present Illness HAs right temporary dialysis catheter and is planned for a tunneled catheter later He is also planned for kidney biopsy today Has been nothing by mouth Otherwise he has no complaints He claims we'll just go home not in [facility] in [place] Social work note reviewed On Flagyl every 8 K3.1 HBsAg positive and he knows that -nlikely from multiple tatooes Plan: has been nothing by mouth for kidney biopsy and tunneled dialysis catheter We'll wait for chair time- he is self-pay Vitals Vitals Vital Signs Date Time Temp Pulse Resp B/P (MAP) Pulse Ox O2 Delivery O2 Flow Rate FiO2 06/26/18 11:00 98.1 72 18 148/100 (116) 96 Room Air 98.1 06/25/18 12:00 1.5 Physical Exam General: Alert, Cooperative Heart: Regular rate, Normal S1, Normal S2 Lungs: Wheezing Abdomen: Normal bowel sounds, Soft, No tenderness, No hepatosplenomegaly Extremities: No clubbing, No cyanosis Skin: No rashes, No breakdown Labs LABS Laboratory Tests Test 06/26/18 03:58 White Blood Count 9.3 x10^3/uL (4.0-11.0) Red Blood Count 2.61 x10^6/uL (4.30-5.70) Hemoglobin 8.0 g/dL (13.0-17.5) Hematocrit 23.9 % (39.0-53.0) Mean Corpuscular Volume 92 fL (79-100) Mean Corpuscular Hemoglobin 31 pg (25-35) Mean Corpuscular Hemoglobin Concent 33 g/dL (31-37) Red Cell Distribution Width 15.5 % (11.5-14.5) Platelet Count 315 x10^3/uL (140-400) Sodium Level 138 mmol/L (136-145) Potassium Level 3.1 mmol/L (3.5-5.1) Chloride Level 103 mmol/L (98-107) Carbon Dioxide Level 24 mmol/L (21-32) Anion Gap 11 (6-14) Blood Urea Nitrogen 55 mg/dL (8-26) Creatinine 7.6 mg/dL (0.7-1.3) Estimated GFR (Cockcroft-Gault) 7.8 Glucose Level 132 mg/dL (70-99) Calcium Level 6.3 mg/dL (8.5-10.1) Phosphorus Level 7.2 mg/dL (2.6-4.7) Magnesium Level 2.0 mg/dL (1.8-2.4) Albumin 1.8 g/dL (3.4-5.0) Review of Systems Review of Systems A 14 point ROS was completed with the following noted as positive: Other systems reviewed and negative. \CONSTITUTIONAL: No fever or chills EYES: No recent changes SKIN: No rash or itching CARDIOVASCULAR: No chest pain, syncope, palpitations, or edema RESPIRATORY: No SOB or cough GASTROINTESTINAL: No nausea, vomiting or abdominal pain NEUROLOGICAL: No headaches or weakness ENDOCRINE: No cold or heat intolerance GENITOURINARY: No urgency or frequency of urination MUSCULOSKELETAL: No back pain or joint pain LYMPHATICS: No enlarged lymph nodes PSYCHIATRIC: No anxiety or depression Assessment and Plan Assessmemt and Plan Problems Medical Problems: (1) ARPIT (acute kidney injury) Status: Acute (2) Anemia Status: Acute (3) Elevated troponin Status: Acute (4) Hyperkalemia Status: Acute Comment Review of Relevant I have reviewed the following items medardo (where applicable) has been applied. Labs Laboratory Tests Test 06/25/18 01:14 06/25/18 04:30 06/25/18 09:55 06/26/18 03:58 Urine Collection Type Unknown Urine Color Yellow Urine Clarity Clear Urine pH 7.5 Urine Specific [place] 1.015 Urine Protein >=300 mg/dL (NEG-TRACE) Urine Glucose (UA) 100 mg/dL (NEG) Urine Ketones (Stick) Negative mg/dL (NEG) Urine Blood Large (NEG) Urine Nitrite Negative (NEG) Urine Bilirubin Negative (NEG) Urine Urobilinogen Dipstick 0.2 mg/dL (0.2 mg/dL) Urine Leukocyte Esterase Small (NEG) Urine RBC Tntc /HPF (0-2) Urine WBC 1-4 /HPF (0-4) Urine Squamous Epithelial Cells Few /LPF Urine Bacteria Few /HPF (0-FEW) Urine Random Creatinine 112.1 mg/dL (Not Establ.) Urine Random Total Protein 466.6 mg/dL (Not Establ.) Urine Protein/Creatinine Ratio 4162 mg/g (0-200) Sodium Level 140 mmol/L (136-145) 138 mmol/L (136-145) Potassium Level 3.1 mmol/L (3.5-5.1) 3.1 mmol/L (3.5-5.1) Chloride Level 104 mmol/L (98-107) 103 mmol/L (98-107) Carbon Dioxide Level 28 mmol/L (21-32) 24 mmol/L (21-32) Anion Gap 8 (6-14) 11 (6-14) Blood Urea Nitrogen 47 mg/dL (8-26) 55 mg/dL (8-26) Creatinine 6.9 mg/dL (0.7-1.3) 7.6 mg/dL (0.7-1.3) Estimated GFR (Cockcroft-Gault) 8.7 7.8 Glucose Level 129 mg/dL (70-99) 132 mg/dL (70-99) Calcium Level 7.0 mg/dL (8.5-10.1) 6.3 mg/dL (8.5-10.1) Phosphorus Level 5.7 mg/dL (2.6-4.7) 7.2 mg/dL (2.6-4.7) Magnesium Level 1.9 mg/dL (1.8-2.4) 2.0 mg/dL (1.8-2.4) Albumin 1.8 g/dL (3.4-5.0) 1.8 g/dL (3.4-5.0) Clostridium difficile Toxin B Gene Negative (Negative) White Blood Count 9.3 x10^3/uL (4.0-11.0) Red Blood Count 2.61 x10^6/uL (4.30-5.70) Hemoglobin 8.0 g/dL (13.0-17.5) Hematocrit 23.9 % (39.0-53.0) Mean Corpuscular Volume 92 fL (79-100) Mean Corpuscular Hemoglobin 31 pg (25-35) Mean Corpuscular Hemoglobin Concent 33 g/dL (31-37) Red Cell Distribution Width 15.5 % (11.5-14.5) Platelet Count 315 x10^3/uL (140-400) Laboratory Tests Test 06/26/18 03:58 White Blood Count 9.3 x10^3/uL (4.0-11.0) Red Blood Count 2.61 x10^6/uL (4.30-5.70) Hemoglobin 8.0 g/dL (13.0-17.5) Hematocrit 23.9 % (39.0-53.0) Mean Corpuscular Volume 92 fL (79-100) Mean Corpuscular Hemoglobin 31 pg (25-35) Mean Corpuscular Hemoglobin Concent 33 g/dL (31-37) Red Cell Distribution Width 15.5 % (11.5-14.5) Platelet Count 315 x10^3/uL (140-400) Sodium Level 138 mmol/L (136-145) Potassium Level 3.1 mmol/L (3.5-5.1) Chloride Level 103 mmol/L (98-107) Carbon Dioxide Level 24 mmol/L (21-32) Anion Gap 11 (6-14) Blood Urea Nitrogen 55 mg/dL (8-26) Creatinine 7.6 mg/dL (0.7-1.3) Estimated GFR (Cockcroft-Gault) 7.8 Glucose Level 132 mg/dL (70-99) Calcium Level 6.3 mg/dL (8.5-10.1) Phosphorus Level 7.2 mg/dL (2.6-4.7) Magnesium Level 2.0 mg/dL (1.8-2.4) Albumin 1.8 g/dL (3.4-5.0) Microbiology 06/22/18 Blood Culture - Preliminary, Resulted NO GROWTH AFTER 3 DAYS Medications Current Medications Sodium Chloride 1,000 ml @ 1,000 mls/hr 1X ONCE IV Last administered on 06/22/18at 15:55; Start 06/22/18 at 15:15; Stop 06/22/18 at 16:14; Status DC Ondansetron HCl (Zofran) 4 mg 1X ONCE IM Last administered on 06/22/18at 15:54; Start 06/22/18 at 15:15; Stop 06/22/18 at 15:40; Status DC Dexamethasone Sodium Phosphate (Decadron) 10 mg 1X ONCE IV Last administered o n 06/22/18at 15:54; Start 06/22/18 at 15:30; Stop 06/22/18 at 15:40; Status DC Iohexol (Omnipaque 300 Mg/ml) 75 ml 1X ONCE IV Last administered on 06/22/18at 16:00; Start 06/22/18 at 16:00; Stop 06/22/18 at 16:01; Status DC Info (CONTRAST GIVEN -- Rx MONITORING) 1 each PRN DAILY PRN MC SEE COMMENTS; Start 06/22/18 at 16:00; Stop 06/24/18 at 15:59; Status DC Calcium Gluconate (Calcium Gluconate) 3,000 mg 1X ONCE IVP Last administered on 06/22/18at 16:39; Start 06/22/18 at 16:00; Stop 06/22/18 at 16:01; Status DC Sodium Bicarbonate (Sodium Bicarb Adult 8.4% Syr) 50 meq 1X ONCE IV Last administered on 06/22/18at 16:40; Start 06/22/18 at 16:00; Stop 06/22/18 at 16:01; Status DC Dextrose (Dextrose 50%-Water Syringe) 25 gm 1X ONCE IV Last administered on 06/22/18at 16:40; Start 06/22/18 at 16:00; Stop 06/22/18 at 16:01; Status DC Insulin Human Regular (HumuLIN R VIAL) 10 unit 1X ONCE IV Last administered on 06/22/18at 16:42; Start 06/22/18 at 16:00; Stop 06/22/18 at 16:01; Status DC Sodium Polystyrene Sulfonate (Kayexalate) 60 gm 1X ONCE PO Last administered on 06/22/18at 17:41; Start 06/22/18 at 16:00; Stop 06/22/18 at 16:01; Status DC Sodium Chloride 1,000 ml @ 1,000 mls/hr Q1H IV Last administered on 06/22/18at 17:02; Start 06/22/18 at 15:50; Stop 06/22/18 at 16:49; Status DC Sodium Chloride 1,000 ml @ 100 mls/hr Q10H IV Last administered on 06/22/18at 22:08; Start 06/22/18 at 15:50; Stop 06/23/18 at 01:49; Status DC Vancomycin HCl (Vanco Per Pharmacy) 1 each PRN DAILY PRN MC SEE COMMENTS Last administered on 06/25/18at 16:31; Start 06/22/18 at 16:00 Piperacillin Sod/ Tazobactam Sod (Zosyn Per Pharmacy) 1 each PRN DAILY PRN MC SEE COMMENTS; Start 06/22/18 at 16:00 Piperacillin Sod/ Tazobactam Sod 2.25 gm/Sodium Chloride 50 ml @ 100 mls/hr 1X ONCE IV Last administered on 06/22/18at 16:48; Start 06/22/18 at 16:15; Stop 06/22/18 at 16:44; Status DC Vancomycin HCl 1.75 gm/Sodium Chloride 500 ml @ 250 mls/hr 1X ONCE IV ; Start 06/22/18 at 16:15; Stop 06/22/18 at 18:14; Status Cancel Vancomycin HCl 1.5 gm/Sodium Chloride 500 ml @ 250 mls/hr 1X ONCE IV Last administered on 06/22/18at 16:59; Start 06/22/18 at 16:15; Stop 06/22/18 at 18:14; Status DC Lidocaine/Sodium Bicarbonate (Buffered Lidocaine 1%) 3 ml STK-MED ONCE .ROUTE ; Start 06/22/18 at 16:10; Stop 06/22/18 at 16:11; Status DC Hydrocortisone Sodium Succinate (Solu-CORTEF) 100 mg Q8HRS IV Last administered on 06/26/18at 05:46; Start 06/22/18 at 16:30 Ondansetron HCl (Zofran) 4 mg PRN Q8HRS PRN IV NAUSEA/VOMITING; Start 06/22/18 at 16:30; Stop 06/23/18 at 16:29; Status DC Fentanyl Citrate (Fentanyl 2ml Vial) 50 mcg PRN Q1HR PRN IV PAIN Last administered on 06/23/18at 08:21; Start 06/22/18 at 16:30; Stop 06/23/18 at 13:58; Status DC Hydrocortisone Sodium Succinate (Solu-CORTEF) 100 mg 1X ONCE IV ; Start 06/22/18 at 17:00; Stop 06/22/18 at 17:00; Status DC Lidocaine/Sodium Bicarbonate (Buffered Lidocaine 1%) 5 ml 1X ONCE INJ Last administered on 06/22/18at 16:45; Start 06/22/18 at 16:45; Stop 06/22/18 at 16:46; Status DC Piperacillin Sod/ Tazobactam Sod 2.25 gm/Sodium Chloride 50 ml @ 100 mls/hr Q8HRS IV Last administered on 06/26/18at 05:46; Start 06/22/18 at 23:00 Vancomycin HCl (Vancomycin Random Level) 1 each 1X ONCE MC Last administered on 06/23/18at 18:00; Start 06/23/18 at 18:00; Stop 06/23/18 at 18:01; Status DC Sodium Chloride 1,000 ml @ 1,000 mls/hr Q1H PRN IV hypotension; Start 06/22/18 at 18:15; Stop 06/23/18 at 00:14; Status DC Diphenhydramine HCl (Benadryl) 25 mg 1X PRN PRN IV ITCHING; Start 06/22/18 at 18:15; Stop 06/23/18 at 18:14; Status DC Diphenhydramine HCl (Benadryl) 25 mg 1X PRN PRN IV ITCHING; Start 06/22/18 at 18:15; Stop 06/23/18 at 18:14; Status DC Sodium Chloride 1,000 ml @ 400 mls/hr Q2H30M PRN IV PATENCY; Start 06/22/18 at 18:15; Stop 06/23/18 at 06:14; Status DC Info (PHARMACY MONITORING -- do not chart) 1 each PRN DAILY PRN MC SEE COMMENTS; Start 06/22/18 at 18:15; Status Cancel Sodium Chloride 1,000 ml @ 100 mls/hr Q10H IV Last administered on 06/23/18at 08:48; Start 06/23/18 at 09:00; Stop 06/23/18 at 13:45; Status DC Cyanocobalamin (Vitamin B-12) 1,000 mcg DAILY PO Last administered on 06/26/18at 07:55; Start 06/23/18 at 11:00 Multivitamins (Thera M Plus) 1 tab DAILY PO Last administered on 06/26/18 07:55; Start 06/23/18 at 11:00 Olanzapine (ZyPREXA) 20 mg QHS PO Last administered on 06/25/18at 21:25; Start 06/23/18 at 21:00 Tramadol HCl (Ultram) 50 mg PRN Q6HRS PRN PO PAIN Last administered on 06/25/18at 21:42; Start 06/23/18 at 13:45 Vancomycin HCl 1 gm/Sodium Chloride 250 ml @ 250 mls/hr 1X ONCE IV Last administered on 06/24/18at 16:00; Start 06/24/18 at 16:00; Stop 06/24/18 at 16:59; Status DC Sodium Chloride 1,000 ml @ 100 mls/hr Q10H IV Last administered on 06/26/18at 04:45; Start 06/24/18 at 12:45 Lactobacillus Rhamnosus (Culturelle) 1 cap BID PO Last administered on 06/25/18at 14:19; Start 06/24/18 at 21:00; Stop 06/25/18 at 16:16; Status DC Vancomycin HCl 500 mg/Sodium Chloride 100 ml @ 100 mls/hr ONCE ONCE IV ; Start 06/24/18 at 16:00; Stop 06/24/18 at 16:59; Status Cancel Sodium Chloride 1,000 ml @ 1,000 mls/hr Q1H PRN IV hypotension; Start 06/24/18 at 16:59; Stop 06/24/18 at 22:58; Status DC Albumin Human 200 ml @ 200 mls/hr 1X PRN PRN IV Hypotension; Start 06/24/18 at 17:00; Stop 06/24/18 at 22:59; Status DC Sodium Chloride (Normal Saline Flush) 10 ml 1X PRN PRN IV AP catheter pack; Start 06/24/18 at 17:00; Stop 06/25/18 at 16:59; Status DC Sodium Chloride (Normal Saline Flush) 10 ml 1X PRN PRN IV [employer] catheter pack; Start 06/24/18 at 17:00; Stop 06/25/18 at 16:59; Status DC Sodium Chloride 1,000 ml @ 400 mls/hr Q2H30M PRN IV PATENCY; Start 06/24/18 at 16:59; Stop 06/25/18 at 04:58; Status DC Info (PHARMACY MONITORING -- do not chart) 1 each PRN DAILY PRN MC SEE COMMENTS; Start 06/24/18 at 17:00; Status Cancel Info (PHARMACY MONITORING -- do not chart) 1 each PRN DAILY PRN MC SEE COMMENTS; Start 06/24/18 at 17:00 Darbepoetin [place] (Aranesp) 60 mcg WEEKLYHS SQ Last administered on 06/25/18at 21:26; Start 06/25/18 at 21:00 Zolpidem Tartrate (Ambien) 5 mg PRN QHS PRN PO INSOMNIA, MAY REPEAT IN 1HR Last administered on 06/25/18at 21:26; Start 06/25/18 at 14:15 Sevelamer Carbonate (Renvela) 800 mg TIDWMEALS PO ; Start 06/26/18 at 12:00 Lidocaine/ Epinephrine (LIDOCAINE 1%-EPI 1:100,000 Multi-Dose) 20 ml STK-MED ONCE .ROUTE ; Start 06/26/18 at 11:31; Stop 06/26/18 at 11:32; Status DC Active Scripts Active Reported Multivitamins (Multivitamin) 1 Each Tablet 1 Tab PO DAILY Vitamin B-12 (Cyanocobalamin (Vitamin B-12)) 1,000 Mcg Tablet 1 Tab PO DAILY Olanzapine 20 Mg Tablet 20 Mg PO QHS Cortef (Hydrocortisone) 20 Mg Tablet 20 Mg PO DAILY Vitals/I & O Vital Sign - Last 24 Hours 06/25/18 06/25/18 06/25/18 06/25/18 12:00 15:00 19:50 20:00 Temp 98.4 98.6 98.4 98.6 Pulse 80 80 Resp 18 18 B/P (MAP) 140/88 (105) 139/90 (106) Pulse Ox 93 93 O2 Delivery Room Air Room Air Room Air Room Air O2 Flow Rate 1.5 06/25/18 06/25/18 06/25/18 06/26/18 21:42 22:42 23:35 03:24 Temp 98.7 98.4 98.7 98.4 Pulse 91 71 Resp 19 18 18 B/P (MAP) 130/91 (104) 136/58 (84) Pulse Ox 92 93 O2 Delivery Room Air Room Air Room Air Room Air 06/26/18 06/26/18 06/26/18 07:00 07:59 11:00 Temp 98.3 98.1 98.3 98.1 Pulse 90 72 Resp 18 18 B/P (MAP) 135/87 (103) 148/100 (116) Pulse Ox 95 96 O2 Delivery Room Air Room Air Room Air Intake and Output 06/25/18 06/25/18 06/26/18 15:00 23:00 07:00 Intake Total 290 ml 520 ml 250 ml Output Total 200 ml Balance 90 ml 520 ml 250 ml Nutrition Consultation Dietary Evaluation: Recommendations by RD: Increase Calorie Intake Comments: REC continue w/renal diet as ordered; will discuss protein supplementation if pt needs additional dialysis Expected Outcomes/Goals: PO intake to meet >75% est needs Malnutrition Findings: Body Fat Depletion (Non Severe: Mild Depletion Weight Status: Appropriate TIM FARRELL MD June 26, 2018 11:37
[2018-06-26] MEDS: SEVELAMER CARBONATE 800 MG TABLET. PO SCH ×2 (12:00→18:15)
[2018-06-26] MEDS ORDERED: LIDOCAINE WITH 8.4% SOD BICARB 3 ML DISP.SYRIN. ONE (12:21)
[2018-06-26] MEDS ORDERED: MIDAZOLAM HCL/PF 5 MG/5 ML VIAL. ONE (12:24)
[2018-06-26] MEDS ORDERED: fentaNYL PF VIAL 100 MCG/2 ML VIAL ONE (12:24)
[2018-06-26] MEDS ORDERED: GELATIN SPONGE SIZE 12-7MM SPONGE. ONE (12:39)
[2018-06-26] MEDS ORDERED: MIDAZOLAM HCL/PF 5 MG/5 ML VIAL. IV ONE (12:45)
[2018-06-26] MEDS ORDERED: fentaNYL PF VIAL 100 MCG/2 ML VIAL IV ONE (12:45)
[2018-06-26] MEDS ORDERED: LIDOCAINE WITH 8.4% SOD BICARB 3 ML DISP.SYRIN. IJ ONE (12:45)
[2018-06-26] MEDS ORDERED: LIDOCAINE 1%/EPI 1:100,000 20 ML VIAL. IJ ONE (12:45)
[2018-06-26] MEDS ORDERED: IV NORMAL SALINE 1000ML BAG 1,000 ML IV PRN ×2 (13:34)
--- NOTE | 2018-06-26 13:44 | PDOC ---
MODERATE SEDATION ASSESSMENT RISKS/ALTERNATIVES Risks/Alternatives Risks and alternatives of this type of sedation and procedure discussed with: RISK/ALTERNATIVES: Patient H & P ON CHART H & P H & P on chart and reviewed for co-morbid conditions and appropriate labs. H&P ON CHART: Yes STATUS PREG STATUS ASSESSED: Yes MEDS/ALLERGIES REVIEWED Meds/Allergies Reviewed Medications and Allergies including time and route of recently administered narcotics and sedatives. MEDS/ALLERGIES REVIEWED: Yes ASA RATING ASA RATING: II AIRWAY ASSESSMENT Airway Assessment Airway patency, oral function limitations, presence of caps, crowns, dentures, partials, and ability to extend neck assessed. AIRWAY ASSESSMENT: Yes MALLAMPATI SCORE MALLAMPATI SCORE: II PRE-SEDATION ASSESSMENT PRE-SEDATION ASSESSMENT: Yes KANIKA ZARAGOZA MD June 26, 2018 13:44
[2018-06-26] MEDS ORDERED: DIALYSIS PATIENT. MC PRN ×2 (13:45)
[2018-06-26] MEDS ORDERED: ALBUMIN HUMAN 25% 200 ML IV PRN (13:45)
[2018-06-26] MEDS ORDERED: 0.9 % SODIUM CHLORIDE 10 ML DISP.SYRIN. IV PRN ×2 (13:45)
[2018-06-26] MEDS ORDERED: GELATIN SPONGE SIZE 12-7MM SPONGE. TP ONE (14:00)
[2018-06-26 14:07] VITALS: BP 139/81
[2018-06-26] MEDS: traMADol 50 MG TABLET PO PRN ×2 (14:39→20:31)
--- NOTE | 2018-06-26 14:42 | PDOC ---
Subjective: Subjective: Has been NPO - had renal biopsy and cath placement, now in dialysis. Tolerated PO yesterday. Vague abd pain. Loose stools, in C Diff precautions. Objective: Vital Signs: Vital Signs Date Time Temp Pulse Resp B/P (MAP) Pulse Ox O2 Delivery O2 Flow Rate FiO2 06/26/18 14:07 65 15 93 Room Air 06/26/18 11:00 98.1 148/100 (116) 98.1 06/25/18 12:00 1.5 Labs: Laboratory Tests Test 06/26/18 03:58 White Blood Count 9.3 x10^3/uL Red Blood Count 2.61 x10^6/uL Hemoglobin 8.0 g/dL Hematocrit 23.9 % Mean Corpuscular Volume 92 fL Mean Corpuscular Hemoglobin 31 pg Mean Corpuscular Hemoglobin Concent 33 g/dL Red Cell Distribution Width 15.5 % Platelet Count 315 x10^3/uL Sodium Level 138 mmol/L Potassium Level 3.1 mmol/L Chloride Level 103 mmol/L Carbon Dioxide Level 24 mmol/L Anion Gap 11 Blood Urea Nitrogen 55 mg/dL Creatinine 7.6 mg/dL Estimated GFR (Cockcroft-Gault) 7.8 Glucose Level 132 mg/dL Calcium Level 6.3 mg/dL Phosphorus Level 7.2 mg/dL Magnesium Level 2.0 mg/dL Albumin 1.8 g/dL PE: GEN: dialyzing LUNGS: CTAB HEART: RRR ABD: NABS, S/ND/NT NEURO/PSYCH: A & O 3 A/P: ARPIT - on dialysis, s/p renal biopsy Anemia - stable, last transfused 06/23 Diarrhea - C Diff neg H/o Arron's - on IV steroids -- Will review Hep B labs and any additional recs w/ Dr. Leslie. Add PPI. CELINA LOPEZ June 26, 2018 14:42
[2018-06-26] MEDS: VANCOMYCIN PER PHARMACY MC PRN (14:54)
--- NOTE | 2018-06-26 15:02 | NUR ---
Pt arrived to dialysis suite 543 s/p RIJcvc placement and renal bx. Bx site to R flank observed by this RN as FISH RN. Site soft, minimally tender per pt, clean dry and intact at 1405. Bx site observed again at 1620 & 1645, WNL clean, dry and intact. Addendum: 06/26/18 at 1506 by LAURA SANTIAGO RN Initial observation of Bx site by this RN as well as FISH XIE Addendum: 06/26/18 at 1639 by LAURA SANTIAGO RN Site checks at 1405, 1420 & 1445 (vs 1620 & 1645). Site check at 1500 WNL, clean dry and intact Site check at 1515 WNL, clean dry and intact Site check at 1530 WNL, clean dry and intact Site check at 1545 WNL, clean dry and intact Site check at 1600 WNL, clean dry and intact Site check at 1615 WNL, clean dry and intact
--- NOTE | 2018-06-26 15:28 | RAD ---
Conversion of a right internal jugular temporary dialysis catheter to tunneled catheter 06/26/2018 2:00 AM Indication: Need for longer term dialysis access Discussion: The risks and benefits of the procedure were discussed the patient. Informed consent was obtained. Timeout procedure was performed. The right neck and chest prepped and draped using sterile barrier technique. All elements of maximal sterile barrier technique including the use of a cap, mask, sterile gown, sterile gloves, large sterile sheet, appropriate hand hygiene, and 2% chlorhexidine for cutaneous antisepsis (or acceptable alternative antiseptic per current guidelines) were followed for this procedure. Fluoroscopic evaluation demonstrates the pre-existing catheter to be in the appropriate position. A guidewire was advanced through the pre-existing catheter, into the IVC. A tunneled dialysis catheter was advanced from a small dermatotomy several inches inferior to the right clavicle to the access site. The pre-existing catheter was removed over a wire. A peel-away sheath was placed. The wire was removed and the new catheter was advanced through the peel-away sheath such that its catheter tip was at the mid right atrium with the patient supine. The new catheter was found to flush and aspirate normally. The catheter was secured in place. Sterile dressings were applied. Total fluoroscopy time: 0.4 Minutes Dose area product: .84 Gycm2 The procedure was performed under conscious sedation including continuous cardiopulmonary monitoring via a dedicated sedation nurse. [id number] sedation time: 15 minutes Impression: Conversion of a temporary dialysis catheter to a tunneled dialysis catheter as described
[2018-06-26] MEDS ORDERED: VANCOMYCIN 500 MG in IV NORMAL SALINE 100ML 100 ML IV SCH (16:00)
--- NOTE | 2018-06-26 16:28 | NUR ---
SW consulted for OP HD. Pt is self pay. SW completed Patient insurability questionnaire with pt and faxed referral to [facility] admission. Pt admission and chair time pending. Will continue to follow.
[2018-06-26] MEDS: PANTOPRAZOLE 40 MG TABLET.DR. PO SCH (18:15)
[2018-06-26 19:45] VITALS: BP 140/89
[2018-06-26] MEDS: ZOLPIDEM 5 MG TABLET. PO PRN (20:31)
[2018-06-26] MEDS: OLANZapine 5 MG TABLET PO SCH (20:32)
[2018-06-26 23:19] VITALS: BP 142/99
[2018-06-27] MEDS: IV NORMAL SALINE 1000ML BAG 1,000 ML IV SCH ×2 (00:45→09:09)
[2018-06-27 04:19] LABS: ALBUMIN 1.7 g/dL (3.4-5.0); CALCIUM 7.1 mg/dL (8.5-10.1); CREATININE 4.6 mg/dL (0.7-1.3); GFR 13.9; PHOSPHORUS 4.6 mg/dL (2.6-4.7); POTASSIUM 3.3 mmol/L (3.5-5.1)
[2018-06-27] MEDS: PIPERACILLIN/TAZOBACTAM 2.25 GM in IV NORMAL SALINE 50ML 50 ML IV SCH (06:00)
[2018-06-27] MEDS: HYDROCORTISONE SOD SUCC/PF 100 MG/2 ML VIAL. IV SCH ×2 (06:00→14:01)
[2018-06-27 07:15] VITALS: BP 181/94
[2018-06-27] MEDS ORDERED: Pantoprazole PO (08:15)
[2018-06-27] MEDS ORDERED: CLON0.1T PO (08:15)
[2018-06-27] MEDS ORDERED: cloNIDine HCL 0.1 MG TABLET PO PRN (08:15)
[2018-06-27] MEDS ORDERED: SEVE800T9 PO (08:15)
[2018-06-27] MEDS: CYANOCOBALAMIN (VITAMIN B-12) 1,000 MCG TABLET. PO SCH (09:08)
[2018-06-27] MEDS: SEVELAMER CARBONATE 800 MG TABLET. PO SCH ×2 (09:08→12:31)
[2018-06-27] MEDS: MULTIVITAMIN with MINERAL TABLET. PO SCH (09:09)
[2018-06-27] MEDS: PANTOPRAZOLE 40 MG TABLET.DR. PO SCH (09:09)
[2018-06-27] MEDS: traMADol 50 MG TABLET PO PRN (09:11)
--- NOTE | 2018-06-27 10:01 | PDOC ---
Subjective: Subjective: Tolerating PO, probably feels better overall, had a stool this morning. Chest is sore from IR procedure yesterday. Objective: Objective: Per RN - has DC orders, no GI concerns. Vital Signs: Vital Signs Date Time Temp Pulse Resp B/P (MAP) Pulse Ox O2 Delivery O2 Flow Rate FiO2 06/27/18 09:08 80 181/94 06/27/18 07:15 98.1 18 95 Room Air 98.1 06/26/18 20:31 1.5 Labs: Laboratory Tests Test 06/27/18 03:20 Sodium Level 139 mmol/L Potassium Level 3.3 mmol/L Chloride Level 104 mmol/L Carbon Dioxide Level 26 mmol/L Anion Gap 9 Blood Urea Nitrogen 29 mg/dL Creatinine 4.6 mg/dL Estimated GFR (Cockcroft-Gault) 13.9 Glucose Level 143 mg/dL Calcium Level 7.1 mg/dL Phosphorus Level 4.6 mg/dL Albumin 1.7 g/dL BLOOD CULTURE Preliminary NO GROWTH AFTER 4 DAYS PE: GEN: NAD LUNGS: CTAB HEART: RRR ABD: NABS, S/ND, vague tenderness left periumbilical NEURO/PSYCH: A & O 3, flat A/P: ARPIT - on dialysis, s/p renal biopsy Anemia - stable Diarrhea - better? H/o Arron's - on IV steroids HTN -- DC plans. Can pursue outpt 'scopes. CELINA LOPEZ June 27, 2018 10:01
--- NOTE | 2018-06-27 10:45 | PDOC3 ---
Discharge Summary Visit Information Date of Admission: June 22, 2018 Date of Discharge: June 27, 2018 Admitting Diagnosis Comment: ESRD-SP Anemia of ESRD Hyperkalemia POA Elevated troponin in the background of AK I Mental disorder-previous [facility] admission Hypokalemia HBsAg positive Multiple tattoos Smoker Final Diagnosis Problems Medical Problems: (1) ARPIT (acute kidney injury) Status: Acute (2) Anemia Status: Acute (3) Elevated troponin Status: Acute (4) Hyperkalemia Status: Acute Brief Hospital Course Allergies Allergies Coded Allergies Type Severity Reaction Last Updated Verified No Known Drug Allergies 06/22/18 No Vital Signs Vital Signs Date Time Temp Pulse Resp B/P (MAP) Pulse Ox O2 Delivery O2 Flow Rate FiO2 06/27/18 09:08 80 181/94 06/27/18 07:15 98.1 18 95 Room Air 98.1 06/26/18 20:31 1.5 Lab Results Laboratory Tests Test 06/26/18 03:58 06/27/18 03:20 White Blood Count 9.3 x10^3/uL (4.0-11.0) Red Blood Count 2.61 x10^6/uL (4.30-5.70) Hemoglobin 8.0 g/dL (13.0-17.5) Hematocrit 23.9 % (39.0-53.0) Mean Corpuscular Volume 92 fL (79-100) Mean Corpuscular Hemoglobin 31 pg (25-35) Mean Corpuscular Hemoglobin Concent 33 g/dL (31-37) Red Cell Distribution Width 15.5 % (11.5-14.5) Platelet Count 315 x10^3/uL (140-400) Sodium Level 138 mmol/L (136-145) 139 mmol/L (136-145) Potassium Level 3.1 mmol/L (3.5-5.1) 3.3 mmol/L (3.5-5.1) Chloride Level 103 mmol/L (98-107) 104 mmol/L (98-107) Carbon Dioxide Level 24 mmol/L (21-32) 26 mmol/L (21-32) Anion Gap 11 (6-14) 9 (6-14) Blood Urea Nitrogen 55 mg/dL (8-26) 29 mg/dL (8-26) Creatinine 7.6 mg/dL (0.7-1.3) 4.6 mg/dL (0.7-1.3) Estimated GFR (Cockcroft-Gault) 7.8 13.9 Glucose Level 132 mg/dL (70-99) 143 mg/dL (70-99) Calcium Level 6.3 mg/dL (8.5-10.1) 7.1 mg/dL (8.5-10.1) Phosphorus Level 7.2 mg/dL (2.6-4.7) 4.6 mg/dL (2.6-4.7) Magnesium Level 2.0 mg/dL (1.8-2.4) Albumin 1.8 g/dL (3.4-5.0) 1.7 g/dL (3.4-5.0) Laboratory Tests Test 06/27/18 03:20 Sodium Level 139 mmol/L (136-145) Potassium Level 3.3 mmol/L (3.5-5.1) Chloride Level 104 mmol/L (98-107) Carbon Dioxide Level 26 mmol/L (21-32) Anion Gap 9 (6-14) Blood Urea Nitrogen 29 mg/dL (8-26) Creatinine 4.6 mg/dL (0.7-1.3) Estimated GFR (Cockcroft-Gault) 13.9 Glucose Level 143 mg/dL (70-99) Calcium Level 7.1 mg/dL (8.5-10.1) Phosphorus Level 4.6 mg/dL (2.6-4.7) Albumin 1.7 g/dL (3.4-5.0) Brief Hospital Course Mr. Rice is a 47 old white male with some psych issues used to be admitted in [facility]. But comes in with RAPIT and hyperkal and ended up being a new dialysis but unfortunately is self-pay and homeless. NEw Medications now include some clonidine when necessary his blood pressure is high, Sevelamer etc. Initially thought to have UTI but urine cultures negative hence. We have stopped vancomycin and Zosyn that he was getting Diarrhea likely from sevelamer C. difficile is negative. I have Rxd the new me dications. I'm seeking Social work assistance as he is homeless He already has a tunneled dialysis catheter placed on 06/26/18 and cleared from renal perspective to dc I did educate him about going to the ER when he feels crappy because he self-pay and Medicaid or Medicare has been started application Discharge Information Condition at Discharge: Improved, Stable Follow Up: Weeks (ff up for HD) Disposition/Orders: D/C to Home Scheduled Clonidine Hcl (Clonidine Hcl) 0.1 Mg Tablet, 0.1 MG PO BID for high bp > 160/100, #60 Prescribed by: TIM FARRELL on 06/27/18814 Cyanocobalamin (Vitamin B-12) (Vitamin B-12) 1,000 Mcg Tablet, 1 TAB PO DAILY for supplement, #30 Ref 2 (Reported) Entered as Reported by: Zina Winter on 06/23/18824 Last Action: Continued on 06/23/181008 by ROX SCHILLING MD Hydrocortisone (Cortef) 20 Mg Tablet, 20 MG PO DAILY for addinsons disease, (Reported) Entered as Reported by: ANGELI PAK on 06/22/181801 Last Action: New Order on 06/22/181801 by ANGELI PAK Multivitamin (Multivitamins) 1 Each Tablet, 1 TAB PO DAILY for supplement, #90 Ref 3 (Reported) Entered as Reported by: Zina Winter on 06/23/18824 Last Action: Converted on 06/23/181008 by ROX SCHILLING MD Olanzapine (Olanzapine) 20 Mg Tablet, 20 MG PO QHS for sleeping , (Reported) Entered as Reported by: Zina Winter on 06/23/18717 Last Action: Converted on 06/23/181008 by ROX SCHILLING MD Sevelamer Carbonate (Renvela) 800 Mg Tablet, 800 MG PO TIDWMEALS for esrd MDD 1, #90 Prescribed by: TIM FARRELL on 06/27/18814 [Pantoprazole] 40 MG TABLET.DR, 40 MG PO DAILYAC for gerd MDD 1, #30 Prescribed by: TIM FARRELL on 06/27/18814 Discontinued Medications Oxycodone Hcl (Oxycodone Hcl) 5 Mg Capsule, 10 MG PO PRN Q6HRS PRN for PAIN, Ref 0 (Reported) Entered as Reported by: Zina Winter on 5/3/19 0742 Last Action: Discontinued on 06/23/18 0750 by TIM Warner MD June 27, 2018 10:45
[2018-06-27 11:00] VITALS: BP 133/92
--- NOTE | 2018-06-27 11:28 | PDOC ---
Renal-Progress Notes Subjective Notes Notes NO COMPLAINTS History of Present Illness Hx of present illness STABLE Vitals Vitals Vital Signs Date Time Temp Pulse Resp B/P (MAP) Pulse Ox O2 Delivery O2 Flow Rate FiO2 06/27/18 09:08 80 181/94 06/27/18 08:00 Room Air 1.5 06/27/18 07:15 98.1 18 95 98.1 Weight Weight [ ] I.O. Intake and Output Intake and Output 06/27/18 07:00 Intake Total 1120 ml Output Total 1200 ml Balance -80 ml Intake Oral 1120 ml Output Urine Total 1200 ml # Bowel Movements 1 Labs Labs Laboratory Tests Test 06/27/18 03:20 Sodium Level 139 mmol/L (136-145) Potassium Level 3.3 mmol/L (3.5-5.1) Chloride Level 104 mmol/L (98-107) Carbon Dioxide Level 26 mmol/L (21-32) Anion Gap 9 (6-14) Blood Urea Nitrogen 29 mg/dL (8-26) Creatinine 4.6 mg/dL (0.7-1.3) Estimated GFR (Cockcroft-Gault) 13.9 Glucose Level 143 mg/dL (70-99) Calcium Level 7.1 mg/dL (8.5-10.1) Phosphorus Level 4.6 mg/dL (2.6-4.7) Albumin 1.7 g/dL (3.4-5.0) Micro Micro Microbiology 06/22/18 Blood Culture - Preliminary, Resulted NO GROWTH AFTER 4 DAYS Review of Systems Constitutional: yes: alert, oriented Ears/Nose/Throat: Yes: no symptom reported Eyes: Yes: no symptom reported Pulmonary: Yes no symptom reported Cardiovascular: Yes no symptom reported Gastrointestional: Yes: no symptom reported Genitourinary: Yes: no symptom reported Musculoskeletal: Yes: no symptom reported Skin: Yes no symptom reported Psychiatric/Neurological: Yes: no symptom reported Endocrine: Yes: no symptom reported Physical Exam General Appearance: no apparent distress Skin: warm Respiratory: bilateral CTA Heart: S1S2 Abdomen: soft, bowel sounds present Genitourinary: bladder flat Extremities: pulses present Neurology: alert, oriented Assessment Assessment IMP [id number] NEPHRITIS HX OF ADRENAL INSUFFICIENCY DEHYDRATION HEP B LOW K S/P RENAL BX S/P TUNNELED HD CATHETER PLAN ON STEROIDS FOR ADRENALS-MAY MASK SOME OF THE BX FINDINGS HYDRATION REPLACE K NEEDED HD TOMORROW ON [facility] WILL LOOK FOR RENAL RECOVERY MARBIN SORIANO MD June 27, 2018 11:28
--- NOTE | 2018-06-27 13:23 | NUR ---
SW following pt. Spoke with pt he is able to go homeless [facility] and pt provided SW with an address to his friend's house. Pt stated his friend has given him permission to stay at her place [facility]. SW arranged transportation via central transport at 1500. Pt aware to come to ER if he feels sick to get labs checked. [employer] still processing self pay application and SW left a voice mail to [facility] regarding pt's discharge today so they can f/u with him if admission request is approved.
--- NOTE | 2018-06-27 15:20 | NUR ---
Discharge Note: TERENCE YARBROUGH [facility] Discharge instructions and discharge home medications reviewed with Patient and a copy given. All questions have been answered and understanding verbalized. The following instructions and handouts were given: Continue with dialysis as scheduled. Discontinued lines and drains: Peripheral IV intact. Patient discharged to Home or Self Care with Central transport via wheelchair.
--- NOTE | 2018-06-28 15:07 | NUR ---
Post dc note: SW notified by [facility] admission, request was denied due to lack of documentation about dx and lack of pay source.
--- NOTE | 2018-06-29 15:06 | PATHOLOGY ---
[facility] Accession Number: [id number] . 01 Material submitted: . kidney - RIGHT RENAL BIOPSY. Modifiers: right . 01 Clinical history: . ESRD . 02 Diagnosis: Special studies report received from [facility], [address] [place] [address], [facility] [address] [address], on case [id number], labeled with their number [id number], dated 06/27/2018. . Specimen submitted: By Isabel Ferrer MD For Kidney, biopsy . DIAGNOSIS: . 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 See comment. . Global Glomerulosclerosis (10/01). . Comment: The biopsy is somewhat limited by the small amount of cortex present for light microscopic examination. This precludes assessment of degree of disease activity and chronicity. There is at least one glomerulus with fibrinoid necrosis and crescent formation. By immunofluorescence, there is strong linear staining of the glomerular basement membranes by IgG. These findings are consistent with anti-glomerular basement membrane antibody disease. . Clinical History: The patient is a 47-year-old male who presents with acute kidney injury, hematuria, and proteinuria as well as nausea, vomiting, and diarrhea. He reports being homeless for the past few weeks. He has a history of bipolar disorder/schizophrenia and Sublette's disease. Serum creatinine is 17.8 and hemoglobin in 5.8. Hepatitis B surface antigen is positive. . Gross Description: Received from [facility] via [facility] are two foreign specimen bottles; one bottle contains formalin and the other contains Dylan's fixative. The bottles are labeled with the patient's name (Sb Rice). . Received in formalin is one piece of coon tissue measuring 0.6 x 0.1 x 0.1 cm (fatty end, dissected). One piece is submitted for electron microscopy and the remainder of the tissue is submitted in its entirety for light microscopy. . Received in Dylan's fixative is one piece of coon, bloody tissue measuring 0.2 x 0.1 x 0.1 cm. The specimen is submitted in its entirety for immunofluorescence microscopy. . Microscopic Description: LIGHT MICROSCOPY: . Scant fragments of cortex and corticomedullary junction are present for evaluation containing up to four glomeruli, three of which are globally sclerotic. The remaining glomerulus shows fibrinoid necrosis and cellular crescent formation. There appears to be no significant underlying endocapillary hypercellularity. There is mild interstitial edema superimposed on a background of at least mild to moderate interstitial fibrosis and tubular atrophy. There is a focal mixed interstitial inflammatory infiltrate. The tubular epithelium shows areas of simplification with attenuation of brush borders as well as areas of cytoplasmic swelling with increased protein reabsorption droplets. Rare arterioles are unremarkable. Arteries are not present for evaluation. [id number] sections prepared for electron microscopy show a single glomerulus with what appears to be a possible fibrocellular crescent and no significant endocapillary hypercellularity. . Standard of care requirements for proper analysis of renal biopsies mandates serial sections, and PAS, Angel silver, trichrome and SMMT stains at multiple levels. PAS stains are used to evaluate various aspects of the glomerular, tubular, and vascular basement membranes. Angel silver stains are used to evaluate thickening, reduplication, "spiking" or "bubbling" of the glomerular basement membrane. Toluidine blue stained sections highlight glomerular basement membranes and demonstrates unusual types of deposits. It also reveals details of tubular epithelial cells and aids in the analysis of vascular lesions. Rich trichrome stains are used to evaluate interstitial fibrosis and basement membrane deposits. The SMMT stain helps evaluate basement membrane changes, immune deposits and tubulointerstitial scarring. Controls are routinely run on all special stains and are verified for acceptability. A review of the technical quality of routine slides is made before results are reported. . IMMUNOFLUORESCENCE: Scant fragments of renal cortex are present for evaluation showing up to six glomeruli, five of which are globally sclerotic. The sections are stained for IgG, IgM, IgA, C3, C1q, albumin, fibrinogen, and kappa and lambda light chains. Both the intact and sclerotic glomeruli show strong linear straining of the basement membranes by IgG (3+) and kappa (3+) and lambda (3+) light chains, which is significantly stronger when compared to albumin staining. There is more discontinuous pseudo-linear to granular mesangial and capillary loop staining by C3 (trace to 1+). All other stains are negative within the glomeruli. There is no significant extraglomerular staining. Waleska and lambda stain equally throughout the tubulointerstitium. . Positive and negative controls are run on all immunofluorescent stains and are verified for acceptability before results are reported. Internal antigens serve as positive controls. . ELECTRON MICROSCOPY: One block is prepared. Ultrastructural evaluation of a glomerulus reveals basement membranes that are of normal thickness with segmental ischemic wrinkling and retraction. Glomerular capillary loops are patent. No immune-type electron-dense deposits are present along the glomerular basement membranes or within the mesangium. There is moderate epithelial foot process effacement. The tubular basement membranes are without deposits. . Special procedures including immunofluorescence and electron microscopy correlate with the light microscopy findings. . Note: Some of the tests reported here may have been developed and performance characteristics determined by [facility]. They have not been cleared or approved by the U.S. Food and Drug Administration (FDA). The FDA does not require this test to go through premarket FDA review. This test is used for clinical purposes. It should not be regarded as investigational or for research. [facility] is certified under the Clinical Laboratory Improvement Amendments of 1988 (CLIA) as qualified to perform high complexity clinical laboratory testing. . Physician/Physician's office called on 06/27/2018 at 2:41 PM Central. . *I have reviewed the clinical history, the pertinent gross findings, all microscopic materials, discussed the case with the clinician when appropriate, and have rendered the final diagnosis. . . Preliminary Diagnosis performed by Beckie Dixon M.D. Electronically signed 06/27/2018 5:18:42 PM . A complete copy of the report is on file. . Professional and technical services performed by [facility] at [address] [place] [address], [id number]. . A complete copy of the report is on file. . Professional and technical services performed by [facility] at [address] [place] [address], [address], [address]. . (AMJ 06/28/2018) . AZ[facility]/06/29/2018 . 02 Electronically signed: . Miguel Lynch MD, Pathologist NPI- [id number] . 01 Gross description: . . The specimen is received in formalin, labeled "StatjessicasSb, R renal biopsy" and consists of a coon needle core measuring 0.9 cm in length and 0.1 cm in diameter. Also received in Dylan's fixative labeled "Stathas, Sb, R renal biopsy" is a needle core pink tissue measuring 0.6 cm in length and less than 0.1 cm in diameter. Both specimens are sent to [facility] for testing. (SDY; 06/26/2018) SYU/SYU . 02 Pathologist provided ICD-10: N18.6 . 02 CPT . 831008 Specimen Comment: A courtesy copy of this report has been sent to Specimen Comment: [phone], , , . Specimen Comment: Report sent to ,DR HARDY,DR BUNDY / DR SORIANO Performed at: 01 [facility] [address] [facility] [address], [place] [id number] MD Robin Whitt MD Phone: [phone] Performed at: 02 [facility] [address] [place] [id number] MD Miguel Lynch MD Phone: [phone]
--- NOTE | 2018-07-05 14:57 | RAD ---
Ultrasound-guided renal biopsy 07/05/2018 Indication: Renal failure Comparison study: None Discussion: The risks and benefits of the procedure were discussed the patient. Informed consent was obtained. Timeout procedure was performed. The right kidney was evaluated by ultrasound found to be unremarkable in appearance. The right flank was prepped and draped using sterile barrier technique. All elements of maximal sterile barrier technique including the use of a cap, mask, sterile gown, sterile gloves, large sterile sheet, appropriate hand hygiene, and 2% chlorhexidine for cutaneous antisepsis (or acceptable alternative antiseptic per current guidelines) were followed for this procedure. 1% lidocaine was administered for local anesthesia. 17-gauge needle was advanced to the inferior pole the right kidney. Core biopsy samples were obtained. Gelfoam embolization of the biopsy tract was performed as the guiding needle was removed. Sterile dressings were applied. The procedures performed under conscious sedation including continuous cardiopulmonary monitoring via dedicated sedation nurse. [id number] sedation time: 20 minutes Impression: Ultrasound-guided right kidney biopsy
== END 2018-06-27 15:20 | disposition home or self-care (01) | DRG 673 ==
LOC: ER 14:57 → 1 WEST ICU 16:02 → 6 SOUTH 06-23 17:40
PROVIDERS: ADMIT Internal Medicine; ATTEND Internal Medicine
PROC: 30233N1 Transfusion of Nonautologous Red Blood Cells into Peripheral Vein, Percutaneous Approach (ICD-10-PCS; principal; 2018-06-22)
PROC: 02HV33Z Insertion of Infusion Device into Superior Vena Cava, Percutaneous Approach (ICD-10-PCS; 2018-06-22)
PROC: B548ZZA Ultrasonography of Superior Vena Cava, Guidance (ICD-10-PCS; 2018-06-22)
PROC: 5A1D70Z Performance of Urinary Filtration, Intermittent, Less than 6 Hours Per Day (ICD-10-PCS; 2018-06-22)
PROC: 5A1D70Z Performance of Urinary Filtration, Intermittent, Less than 6 Hours Per Day (ICD-10-PCS; 2018-06-24)
PROC: 0JH63XZ Insertion of Tunneled Vascular Access Device into Chest Subcutaneous Tissue and Fascia, Percutaneous Approach (ICD-10-PCS; 2018-06-26)
PROC: 05PY33Z Removal of Infusion Device from Upper Vein, Percutaneous Approach (ICD-10-PCS; 2018-06-26)
PROC: 02H633Z Insertion of Infusion Device into Right Atrium, Percutaneous Approach (ICD-10-PCS; 2018-06-26)
PROC: B2141ZZ Fluoroscopy of Right Heart using Low Osmolar Contrast (ICD-10-PCS; 2018-06-26)
PROC: 5A1D70Z Performance of Urinary Filtration, Intermittent, Less than 6 Hours Per Day (ICD-10-PCS; 2018-06-26)
PROC: 0TB03ZX Excision of Right Kidney, Percutaneous Approach, Diagnostic (ICD-10-PCS; 2018-06-26)
DX: I12.0 Hypertensive chronic kidney disease with stage 5 chronic kidney disease or end stage renal disease (principal); N17.0 Acute kidney failure with tubular necrosis; N18.6 End stage renal disease; E27.1 Primary adrenocortical insufficiency; E87.5 Hyperkalemia; D63.1 Anemia in chronic kidney disease; E86.0 Dehydration; F20.9 Schizophrenia, unspecified; F31.9 Bipolar disorder, unspecified; Z51.5 Encounter for palliative care; F17.200 Nicotine dependence, unspecified, uncomplicated; Z59.0 Homelessness; Z99.2 Dependence on renal dialysis; Z98.1 Arthrodesis status; E87.6 Hypokalemia
CPT/HCPCS: 36415; 36556; 36558; 50200; 70450; 71045; 74176; 76770; 76937; 76942; 77001; 80048; 80053; 80069; 80202; 80307; 81001; 82550; 82570; 82728; 83540; 83550; 83605; 83735; 83880; 84100; 84156; 84484; 84550; 85007; 85025; 85027; 85049; 85610; 86704; 86706; 86850; 86900; 86901; 86920; 87040; 87045; 87328; 87340; 87493; 88300; 93005; 96374; 96375; 99152; 99153; A4215; C1750; C1892; G0480; J0610; J0881; J1100; J1720; J1815; J2250; J2405; J2543; J3010; J3370; J3490; J7030; J7040; J7042; J7050; P9016; Q9967; 99285-25

== ENCOUNTER 2018-06-29 10:11 | Inpatient (IN) | payer SELFPAY ==
[~2018-06-29] VITALS: Ht 195.6 cm; Wt 103.0 kg
[2018-06-29] VITALS (9 sets, daily range): BP systolic 160–212; BP diastolic 90–133
[~2018-06-29 10:11] MED LIST: BUPR1FIL5 SL; CLON0.1T PO; CYAN10005 PO; HYDR20TA PO; MULT1TAB52 PO; OLAN20TA15 PO; OXYC5CAP PO; Pantoprazole PO; SEVE800T9 PO
[2018-06-29 11:04] LABS: BASO % 0 % (0-3); EOS # 0.1 x10^3/uL (0.0-0.7); EOS % 2 % (0-3); HEMOGLOBIN 9.3 g/dL (13.0-17.5); LYMPH % 14 % (24-48); MEAN CORPUSCULAR HEMOGLOBIN 31 pg (25-35); MEAN CORPUSCULAR HGB CONC 33 g/dL (31-37); MEAN CORPUSCULAR VOLUME 93 fL (79-100); MONO # 0.9 x10^3/uL (0.0-1.1); MONO % 11 % (0-9); NEUT # 5.6 x10^3uL (1.8-7.7); NEUT % 73 % (31-73); PLATELET COUNT 276 x10^3/uL (140-400); RED BLOOD COUNT 3.03 x10^6/uL (4.30-5.70); RED CELL DISTRIBUTION WIDTH 17.8 % (11.5-14.5); WHITE BLOOD COUNT 7.6 x10^3/uL (4.0-11.0)
[2018-06-29 11:10] LABS: CALCIUM 7.1 mg/dL (8.5-10.1); CREATININE 6.9 mg/dL (0.7-1.3); GFR 8.7; POTASSIUM 3.3 mmol/L (3.5-5.1)
[2018-06-29 11:16] LABS: ALBUMIN 2.1 g/dL (3.4-5.0); ALBUMIN/GLOBULIN RATIO 0.6 (1.0-1.7); TOTAL BILIRUBIN 0.6 mg/dL (0.2-1.0); TOTAL PROTEIN 5.6 g/dL (6.4-8.2)
[2018-06-29 11:21] LABS: PROTHROMBIN TIME PATIENT 13.6 SEC (11.7-14.0)
[2018-06-29] MEDS ORDERED: MORPHINE SULFATE 4 MG/ML VIAL. IV ONE ×2 (11:30→13:30)
[2018-06-29] MEDS ORDERED: ONDANSETRON PF 4 MG/2 ML VIAL. ONE (11:43)
[2018-06-29] MEDS ORDERED: ONDANSETRON PF 4 MG/2 ML VIAL. IV ONE (11:45)
--- NOTE | 2018-06-29 12:04 | PHYS DOC ---
Past Medical History Past Medical History: Hypertension, Renal Failure, Other Additional Past Medical Histor: KYLER'S DISEASE Past Surgical History: Cervical Fusion, Other Additional Past Surgical Histo: KNEE,DIALYSIS CATH PLACEMENT Alcohol Use: None Drug Use: None Adult General Chief Complaint Chief Complaint: ALTERED MENTAL STATUS HPI HPI Patient is a 47 year old L who presented to ER today for evaluation of pain all over, general weakness, he said he just did not feel well. Patient was recently diagnosed was renal failure, on hemodialysis. Patient had a temporary dialysis catheter placed on the right internal jugular veins last month. Patient was discharged here 2 days ago. Because of the insurance status, he is not able to have a set schedule for dialysis. He is still waiting for Medicaid approval. Patient was told to come to the ER for dialysis whenever he is not feeling well. He denies any abdominal pain, no nausea vomiting. Review of Systems Review of Systems Constitutional: Denies fever or chills [] Eyes: Denies change in visual acuity, redness, or eye pain [] HENT: Denies nasal congestion or sore throat [] Respiratory: Denies cough or shortness of breath [] Cardiovascular: No additional information not addressed in HPI [] GI: Denies abdominal pain, nausea, vomiting, bloody stools or diarrhea [] : Denies dysuria or hematuria [] Musculoskeletal: Positive for back pain or joint pain [] Integument: Denies rash or skin lesions [] Neurologic: Positive for headache, NO focal weakness or sensory changes [] Endocrine: Denies polyuria or polydipsia [] All other systems were reviewed and found to be within normal limits, except as documented in this note. Current Medications Current Medications Current Medications Medications (Trade) Dose Ordered Sig/Essence Start Time Stop Time Status Last Admin Dose Admin Morphine Sulfate (Morphine Sulfate) 4 mg 1X ONCE 06/29/18 11:30 06/29/18 11:31 DC 06/29/18 11:40 4 MG Ondansetron HCl (Zofran) 4 mg STK-MED ONCE 06/29/18 11:43 06/29/18 11:44 DC Allergies Allergies Allergies Coded Allergies Type Severity Reaction Last Updated Verified No Known Drug Allergies 06/22/18 No Physical Exam Physical Exam Constitutional: Well developed, well nourished, no acute distress, non-toxic appearance. [] HENT: Normocephalic, atraumatic, bilateral external ears normal, oropharynx moist, no oral exudates, nose normal. [] Eyes: PERRLA, EOMI, Pale conjunctiva , no discharge. [] Neck: Normal range of motion, no tenderness, supple, no stridor. [] Cardiovascular:Heart rate regular rhythm, no murmur [] Lungs & Thorax: Bilateral breath sounds clear to auscultation, DIALYSIS CATHETER ON RIGHT SIDE CHEST. NO ACTIVE BLEEDING. Abdomen: Bowel sounds normal, soft, no tenderness, no masses, no pulsatile masses. [] Skin: Warm, dry, no erythema, no rash. [] Back: No tenderness, no CVA tenderness. [] Extremities: No tenderness, no cyanosis, no clubbing, ROM intact, no edema. [] Neurologic: Alert and oriented X 3, normal motor function, normal sensory function, no focal deficits noted. [] Psychologic: Affect normal, judgement normal, mood normal. [] Current Patient Data Vital Signs Vital Signs Date Time Temp Pulse Resp B/P (MAP) Pulse Ox O2 Delivery O2 Flow Rate FiO2 06/29/18 11:47 80 11 95 06/29/18 11:40 Room Air 06/29/18 10:21 98.3 167/105 (125) 98.3 Lab Values Laboratory Tests Test 06/29/18 10:30 06/29/18 10:45 Glucose (Fingerstick) 85 mg/dL (70-99) White Blood Count 7.6 x10^3/uL (4.0-11.0) Red Blood Count 3.03 x10^6/uL (4.30-5.70) L Hemoglobin 9.3 g/dL (13.0-17.5) L Hematocrit 28.0 % (39.0-53.0) L Mean Corpuscular Volume 93 fL (79-100) Mean Corpuscular Hemoglobin 31 pg (25-35) Mean Corpuscular Hemoglobin Concent 33 g/dL (31-37) Red Cell Distribution Width 17.8 % (11.5-14.5) H Platelet Count 276 x10^3/uL (140-400) Neutrophils (%) (Auto) 73 % (31-73) Lymphocytes (%) (Auto) 14 % (24-48) L Monocytes (%) (Auto) 11 % (0-9) H Eosinophils (%) (Auto) 2 % (0-3) Basophils (%) (Auto) 0 % (0-3) Neutrophils # (Auto) 5.6 x10^3uL (1.8-7.7) Lymphocytes # (Auto) 1.0 x10^3/uL (1.0-4.8) Monocytes # (Auto) 0.9 x10^3/uL (0.0-1.1) Eosinophils # (Auto) 0.1 x10^3/uL (0.0-0.7) Basophils # (Auto) 0.0 x10^3/uL (0.0-0.2) Prothrombin Time 13.6 SEC (11.7-14.0) Prothrombin Time INR 1.1 (0.8-1.1) PTT 27 SEC (24-38) Sodium Level 141 mmol/L (136-145) Potassium Level 3.3 mmol/L (3.5-5.1) L Chloride Level 105 mmol/L (98-107) Carbon Dioxide Level 24 mmol/L (21-32) Anion Gap 12 (6-14) Blood Urea Nitrogen 37 mg/dL (8-26) H Creatinine 6.9 mg/dL (0.7-1.3) H Estimated GFR (Cockcroft-Gault) 8.7 BUN/Creatinine Ratio 5 (6-20) L Glucose Level 94 mg/dL (70-99) Calcium Level 7.1 mg/dL (8.5-10.1) L Total Bilirubin 0.6 mg/dL (0.2-1.0) Aspartate Amino Transferase (AST) 31 U/L (15-37) Alanine Aminotransferase (ALT) 38 U/L (16-63) Alkaline Phosphatase 81 U/L (46-116) Creatine Kinase 99 U/L (39-308) Creatine Kinase MB (Mass) 0.6 ng/mL (0.0-3.6) Creatine Kinase MB Relative Index 0.6 % (0-4) Troponin I Quantitative 0.056 ng/mL (0.000-0.055) Total Protein 5.6 g/dL (6.4-8.2) L Albumin 2.1 g/dL (3.4-5.0) L Albumin/Globulin Ratio 0.6 (1.0-1.7) L Lipase 236 U/L (73-393) Laboratory Tests 06/29/18 10:45 Laboratory Tests 06/29/18 10:45 EKG EKG [] Radiology/Procedures Radiology/Procedures [] Course & Med Decision Making Course & Med Decision Making Pertinent Labs and Imaging studies reviewed. (See chart for details) [] Dragon Disclaimer Dragon Disclaimer This electronic medical record was generated, in whole or in part, using a voice recognition dictation system. Departure Departure Impression: Primary Impression: ESRD (end stage renal disease) Additional Impression: Hypertension Disposition: 09 ADMITTED INPATIENT Admitting Physician: Zeferino Mckeon Condition: STABLE Referrals: NO PCP (PCP) Problem Qualifiers MYA [place] DO June 29, 2018 12:04
[2018-06-29] MEDS ORDERED: ONDANSETRON PF 4 MG/2 ML VIAL. IV PRN (12:15)
--- NOTE | 2018-06-29 12:25 | EKG ---
[facility] [address] [place] [address] Test Date: 2018-06-29 Test Time: 10:41:40 Pat Name: TERENCE YARBROUGH Department: Room: Gender: M Director Of Photography: : 1970 Requested By: MYA [place] Order Number: [id number] Reading MD: Unruly Garnett Measurements Intervals [place] Rate: 79 P: 0 WA: 156 QRS: -15 QRSD: 82 T: 18 QT: 436 QTc: 501 Interpretive Statements SINUS RHYTHM LEFTWARD AXIS QRS(T) CONTOUR ABNORMALITY CONSIDER ANTEROLATERAL MYOCARDIAL DAMAGE PROLONGED QT POSSIBLY ABNORMAL ECG Electronically Signed On 07-27-2018 13:10:45 CDT by Unruly Garnett
--- NOTE | 2018-06-29 12:33 | PDOC1 ---
History and Physical Date of Admission Date of Admission DATE: 06/29/18 TIME: 12:31 Identification/Chief Complaint Chief Complaint presented in renal failure, prv dx, unable to afford needed dialysis 3 x a week Past Medical History Past Medical History Past Medical History Past Medical History Past Medical History: Hypertension, Renal Failure, Other Additional Past Medical Histor: KYLER'S DISEASE Past Surgical History: Cervical Fusion, Other Additional Past Surgical Histo: KNEE,DIALYSIS CATH PLACEMENT Alcohol Use: None Drug Use: None Review of Systems Review of Systems Constitutional: Denies fever or chills [] Eyes: Denies change in visual acuity, redness, or eye pain [] HENT: Denies nasal congestion or sore throat [] Respiratory: Denies cough or shortness of breath [] Cardiovascular: No additional information not addressed in HPI [] GI: Denies abdominal pain, nausea, vomiting, bloody stools or diarrhea [] : Denies dysuria or hematuria [] Musculoskeletal: Denies back pain or joint pain [] Integument: Denies rash or skin lesions [] Neurologic: Denies headache, focal weakness or sensory changes [] Endocrine: Denies polyuria or polydipsia [] 14 pt systems were reviewed and found to be within normal limits, except as documented Family History Family History: Hypertension Social History Smoke: No ALCOHOL: none Drugs: None Current Problem List Problem List Problems Medical Problems: (1) Hypertension Status: Acute Current Medications Current Medications Current Medications Morphine Sulfate (Morphine Sulfate) 4 mg 1X ONCE IV Last administered on 06/29/18at 11:40; Start 06/29/18 at 11:30; Stop 06/29/18 at 11:31; Status DC Ondansetron HCl (Zofran) 4 mg 1X ONCE IV Last administered on 06/29/18at 11:44; Start 06/29/18 at 11:45; Stop 06/29/18 at 11:46; Status DC Ondansetron HCl (Zofran) 4 mg STK-MED ONCE .ROUTE ; Start 06/29/18 at 11:43; Stop 06/29/18 at 11:44; Status DC Ondansetron HCl (Zofran) 4 mg PRN Q8HRS PRN IV NAUSEA/VOMITING; Start 06/29/18 at 12:15; Stop 06/30/18 at 12:14 Active Scripts Active Clonidine Hcl 0.1 Mg Tablet 0.1 Mg PO BID [Pantoprazole] 40 MG Tablet.dr 40 Mg PO DAILYAC MDD 1 Renvela (Sevelamer Carbonate) 800 Mg Tablet 800 Mg PO TIDWMEALS MDD 1 Reported Multivitamins (Multivitamin) 1 Each Tablet 1 Tab PO DAILY Vitamin B-12 (Cyanocobalamin (Vitamin B-12)) 1,000 Mcg Tablet 1 Tab PO DAILY Olanzapine 20 Mg Tablet 20 Mg PO QHS Cortef (Hydrocortisone) 20 Mg Tablet 20 Mg PO DAILY Allergies Allergies: Coded Allergies: No Known Drug Allergies (Unverified , 06/22/18) ROS Review of System Constitutional: Denies fever or chills [] Eyes: Denies change in visual acuity, redness, or eye pain [] HENT: Denies nasal congestion or sore throat [] Respiratory: Denies cough or shortness of breath [] Cardiovascular: No additional information not addressed in HPI [] GI: Denies abdominal pain, nausea, vomiting, bloody stools or diarrhea [] : Denies dysuria or hematuria [] Musculoskeletal: Denies back pain or joint pain [] Integument: Denies rash or skin lesions [] Neurologic: Denies headache, focal weakness or sensory changes [] Endocrine: Denies polyuria or polydipsia [] 14 pt systems were reviewed and found to be within normal limits, except as documented Hematological and Lymphatic: No: Bleeding Problems, Blood Clots, Blood Transfusions, Brusing, Night Sweats, Pallor, Swollen Lymph Nodes, Other Cardiovascular: No Chest Pain, No Palpitations, No Orthopnea, No Paroxysmal Noc. Dyspnea, No Edema, No Lt Headedness, No Other Physical Exam Physical Exam Physical Exam Physical Exam Constitutional: Well developed, well nourished, no acute distress, non-toxic appearance. [] HENT: Normocephalic, atraumatic, bilateral external ears normal, oropharynx moist, no oral exudates, nose normal. [] Eyes: PERRLA, EOMI, conjunctiva normal, no discharge. [] Neck: Normal range of motion, no tenderness, supple, no stridor. [] Cardiovascular:Heart rate regular rhythm, no murmur [] Lungs & Thorax: Bilateral breath sounds clear to auscultation [] Abdomen: Bowel sounds normal, soft, no tenderness, no masses, no pulsatile masses. [] Skin: Warm, dry, no erythema, no rash. [] Back: No tenderness, no CVA tenderness. [] Extremities: No tenderness, no cyanosis, no clubbing, ROM intact, no edema. [] Neurologic: Alert and oriented X 3, normal motor function, normal sensory function, no focal deficits noted. [] Psychologic: Affect normal, judgement normal, mood normal. [] General: Alert, Oriented X3, Cooperative, mild distress HEENT: Atraumatic, PERRLA, Mucous membr. moist/pink Lungs: Clear to auscultation, Normal air movement Heart: RRR Abdomen: Soft Rectal Exam: not examined Extremities: No cyanosis Neuro: Normal speech, Cranial nerves 3-12 NL Psych/Mental Status: Mental status NL, Mood NL Vitals Vitals Vital Signs Date Time Temp Pulse Resp B/P (MAP) Pulse Ox O2 Delivery O2 Flow Rate FiO2 06/29/18 11:40 20 97 Room Air 06/29/18 10:21 98.3 80 167/105 (125) 98.3 Labs Labs Laboratory Tests Test 06/29/18 10:30 06/29/18 10:45 Glucose (Fingerstick) 85 mg/dL (70-99) White Blood Count 7.6 x10^3/uL (4.0-11.0) Red Blood Count 3.03 x10^6/uL (4.30-5.70) Hemoglobin 9.3 g/dL (13.0-17.5) Hematocrit 28.0 % (39.0-53.0) Mean Corpuscular Volume 93 fL (79-100) Mean Corpuscular Hemoglobin 31 pg (25-35) Mean Corpuscular Hemoglobin Concent 33 g/dL (31-37) Red Cell Distribution Width 17.8 % (11.5-14.5) Platelet Count 276 x10^3/uL (140-400) Neutrophils (%) (Auto) 73 % (31-73) Lymphocytes (%) (Auto) 14 % (24-48) Monocytes (%) (Auto) 11 % (0-9) Eosinophils (%) (Auto) 2 % (0-3) Basophils (%) (Auto) 0 % (0-3) Neutrophils # (Auto) 5.6 x10^3uL (1.8-7.7) Lymphocytes # (Auto) 1.0 x10^3/uL (1.0-4.8) Monocytes # (Auto) 0.9 x10^3/uL (0.0-1.1) Eosinophils # (Auto) 0.1 x10^3/uL (0.0-0.7) Basophils # (Auto) 0.0 x10^3/uL (0.0-0.2) Prothrombin Time 13.6 SEC (11.7-14.0) Prothromb Time International Ratio 1.1 (0.8-1.1) Activated Partial Thromboplast Time 27 SEC (24-38) Sodium Level 141 mmol/L (136-145) Potassium Level 3.3 mmol/L (3.5-5.1) Chloride Level 105 mmol/L (98-107) Carbon Dioxide Level 24 mmol/L (21-32) Anion Gap 12 (6-14) Blood Urea Nitrogen 37 mg/dL (8-26) Creatinine 6.9 mg/dL (0.7-1.3) Estimated GFR (Cockcroft-Gault) 8.7 BUN/Creatinine Ratio 5 (6-20) Glucose Level 94 mg/dL (70-99) Calcium Level 7.1 mg/dL (8.5-10.1) Total Bilirubin 0.6 mg/dL (0.2-1.0) Aspartate Amino Transf (AST/SGOT) 31 U/L (15-37) Alanine Aminotransferase (ALT/SGPT) 38 U/L (16-63) Alkaline Phosphatase 81 U/L (46-116) Creatine Kinase 99 U/L (39-308) Creatine Kinase MB (Mass) 0.6 ng/mL (0.0-3.6) Creatine Kinase MB Relative Index 0.6 % (0-4) Troponin I Quantitative 0.056 ng/mL (0.000-0.055) Total Protein 5.6 g/dL (6.4-8.2) Albumin 2.1 g/dL (3.4-5.0) Albumin/Globulin Ratio 0.6 (1.0-1.7) Lipase 236 U/L (73-393) Laboratory Tests Test 06/29/18 10:30 06/29/18 10:45 Glucose (Fingerstick) 85 mg/dL (70-99) White Blood Count 7.6 x10^3/uL (4.0-11.0) Red Blood Count 3.03 x10^6/uL (4.30-5.70) Hemoglobin 9.3 g/dL (13.0-17.5) Hematocrit 28.0 % (39.0-53.0) Mean Corpuscular Volume 93 fL (79-100) Mean Corpuscular Hemoglobin 31 pg (25-35) Mean Corpuscular Hemoglobin Concent 33 g/dL (31-37) Red Cell Distribution Width 17.8 % (11.5-14.5) Platelet Count 276 x10^3/uL (140-400) Neutrophils (%) (Auto) 73 % (31-73) Lymphocytes (%) (Auto) 14 % (24-48) Monocytes (%) (Auto) 11 % (0-9) Eosinophils (%) (Auto) 2 % (0-3) Basophils (%) (Auto) 0 % (0-3) Neutrophils # (Auto) 5.6 x10^3uL (1.8-7.7) Lymphocytes # (Auto) 1.0 x10^3/uL (1.0-4.8) Monocytes # (Auto) 0.9 x10^3/uL (0.0-1.1) Eosinophils # (Auto) 0.1 x10^3/uL (0.0-0.7) Basophils # (Auto) 0.0 x10^3/uL (0.0-0.2) Prothrombin Time 13.6 SEC (11.7-14.0) Prothromb Time International Ratio 1.1 (0.8-1.1) Activated Partial Thromboplast Time 27 SEC (24-38) Sodium Level 141 mmol/L (136-145) Potassium Level 3.3 mmol/L (3.5-5.1) Chloride Level 105 mmol/L (98-107) Carbon Dioxide Level 24 mmol/L (21-32) Anion Gap 12 (6-14) Blood Urea Nitrogen 37 mg/dL (8-26) Creatinine 6.9 mg/dL (0.7-1.3) Estimated GFR (Cockcroft-Gault) 8.7 BUN/Creatinine Ratio 5 (6-20) Glucose Level 94 mg/dL (70-99) Calcium Level 7.1 mg/dL (8.5-10.1) Total Bilirubin 0.6 mg/dL (0.2-1.0) Aspartate Amino Transf (AST/SGOT) 31 U/L (15-37) Alanine Aminotransferase (ALT/SGPT) 38 U/L (16-63) Alkaline Phosphatase 81 U/L (46-116) Creatine Kinase 99 U/L (39-308) Creatine Kinase MB (Mass) 0.6 ng/mL (0.0-3.6) Creatine Kinase MB Relative Index 0.6 % (0-4) Troponin I Quantitative 0.056 ng/mL (0.000-0.055) Total Protein 5.6 g/dL (6.4-8.2) Albumin 2.1 g/dL (3.4-5.0) Albumin/Globulin Ratio 0.6 (1.0-1.7) Lipase 236 U/L (73-393) Images Images EXAM: Abdomen and pelvis CT without intravenous contrast. HISTORY: Dizziness. Decreased appetite. TECHNIQUE: Computed tomographic images of the abdomen and pelvis were obtained without contrast. Multiplanar reformatting was performed. *One or more of the following individualized dose reduction techniques were utilized for this examination: 1. Automated exposure control. 2. Adjustment of the mA and/or kV according to patient size. 3. Use of iterative reconstruction technique. COMPARISON: 06/20/2014. FINDINGS: Evaluation of the lower thorax demonstrates small left greater than right pleural effusions and bilateral mid and lower lung interstitial infiltrate. The heart is upper normal in size to mildly enlarged. No hepatic lesion is seen on this noncontrast exam. The gallbladder, pancreas and adrenal glands are unremarkable. There is a splenule adjacent to an otherwise unremarkable spleen. The kidneys are unremarkable. The appendix is surgically absent. There are nonspecific air and fluid-filled loops of small bowel within the abdomen. There is no evidence of bowel wall thickening or obstruction. The urinary bladder is unremarkable. There is a benign sclerotic lesion within the right iliac bone. There is no lymphadenopathy. There is instrumented fusion at the lumbosacral junction. IMPRESSION: 1. Bilateral mid and lower lung interstitial infiltrate with small pleural effusions. 2. Nonspecific air and fluid-filled loops of bowel throughout the abdomen. There is no evidence of obstruction or convincing enteritis or colitis. Electronically signed by: Maureen Dang MD (06/22/2018 4:26 PM) [facility] VTE Prophylaxis Ordered VTE Prophylaxis Devices: Yes VTE Pharmacological Prophylaxi: Yes Assessment/Plan Assessment/Plan impression ESRD- unable to schedule regular dialysis, lacks financial means Anemia of ESRD Hypokalemia POA Mental disorder-previous [facility] Hypokalemia HBsAg positive Multiple tattoos Smoker htn plan dialysis today nephrology consulted SS consult dvt prophylaxis home meds bp control 53 min pt exam, chart review, > 50% of time spent with exam,. chart review, pt care coordination JOSE LUCERO MD June 29, 2018 12:32
[2018-06-29] MEDS ORDERED: ACETAMINOPHEN 325 MG TABLET. PO ONE (16:30)
[2018-06-29] MEDS: HYDROCORTISONE 10 MG TABLET PO SCH (18:31)
[2018-06-29] MEDS: PANTOPRAZOLE 40 MG TABLET.DR. PO SCH (18:31)
[2018-06-29] MEDS: SEVELAMER CARBONATE 800 MG TABLET. PO SCH (18:32)
[2018-06-29] MEDS: MULTIVITAMIN with MINERAL TABLET. PO SCH (18:32)
[2018-06-29] MEDS: CYANOCOBALAMIN (VITAMIN B-12) 1,000 MCG TABLET. PO SCH (18:32)
--- NOTE | 2018-06-29 20:15 | NUR ---
Rapid Response Note: Code Stroke called by patient's RN for loss of vision; RN reported patient had complained of vision loss in the ED today and again tonight. Upon arrival, patient is awake, alert to self, age, hospital but unable to specify which hospital or the correct year/date; speech is normal without any aphasia/dysphasia. Patient states he can not see out of either eye so vision field was not checked, but he does state his head hurts from the right yarsanism across is forehead to the left yarsanism stating pain is 9/10 on the Numeric pain scale. Patient is able to recognize when and where he is touched but gets the right/left backwards. Bilat upper extremities have equal eap counselor and no weakness/drift but patient is unable to accurately touch his nose to this RN's finger secondary to vision. Bilat lower extremities are weak and drift with his right leg and inability to keep his left leg elevated at all; he is able to slide his heal down the opposite velázquez. FSBS 116. Dr Palmer paged and notified of above including episode in ED this morning, also patient is a dialysis patient. Orders received for CT head, CTA Head/Neck, and call results to him; no TPA ordered secondary to time limit and patient to remain on 6S at this time. RN and patient notified of orders, all questions answered. See orders, NIHSS Scale. Addendum: 06/29/18 at 2044 by FLORENTINO GARCIA RN Amended: Links added.
--- NOTE | 2018-06-29 20:16 | NUR ---
Addendum to Rapid Response note at 2015: When asked to smile and raise his eyebrows, patient have slight facial drooping on the left side.
--- NOTE | 2018-06-29 20:47 | RAD ---
EXAM: Head CT without contrast. HISTORY: Code stroke. TECHNIQUE: Computed tomographic images of the head were obtained without contrast.. *One or more of the following individualized dose reduction techniques were utilized for this examination: 1. Automated exposure control. 2. Adjustment of the mA and/or kV according to patient size. 3. Use of iterative reconstruction technique. COMPARISON: 06/22/2018. FINDINGS: There is extensive hypodensity throughout the posterior cerebral white matter and overlying cortex, new compared to the prior study. This primarily involves the parietal lobes near the vertex and the occipital lobes. There is no hemorrhage. There is no mass effect or midline shift. There is no hydrocephalus. The visualized portions of the orbits and paranasal sinuses are unremarkable. There is a small amount of fluid within the mastoid air cells. No calvarial lesion is seen. IMPRESSION: Extensive hypodensity throughout the bilateral posterior cerebral hemispheres, primarily involving the parietal lobes near the vertex and the occipital lobes. This is new compared to the prior study. The differential includes acute or subacute infarction as well as changes due to posterior reversible encephalopathy syndrome (PRES). No hemorrhage is seen. This can be better assessed with a MRI. Findings were discussed with Wendy, the nurse caring for the patient, at 2040 hours on 06/29/2018. Electronically signed by: Maureen Dang MD (06/29/2018 8:44 PM) [facility]
[2018-06-29] MEDS: OLANZapine 5 MG TABLET PO SCH (21:00)
[2018-06-29] MEDS: cloNIDine HCL 0.1 MG TABLET PO SCH (21:00)
[2018-06-29] MEDS ORDERED: IOHEXOL 350 MG/ML 100 ML VIAL. IV ONE (21:00)
[2018-06-29] MEDS ORDERED: ACETAMINOPHEN 325 MG TABLET. PO PRN (21:15)
[2018-06-29] MEDS ORDERED: LABETALOL 20 MG/4 ML DISP.SYRIN. IVP PRN (21:15)
[2018-06-29] MEDS ORDERED: ACETAMINOPHEN 650 MG SUPP.RECT. PR PRN (21:15)
[2018-06-29] MEDS ORDERED: ASPIRIN RECTAL 300 MG SUPP. PR PRN (21:15)
--- NOTE | 2018-06-29 21:29 | RAD ---
EXAM: CT angiogram of the head and neck with intravenous contrast. HISTORY: Vision loss. Cerebral infarction. TECHNIQUE: Computed tomographic images of the head and neck were obtained following the administration of 75 cc Omnipaque 350 intravenous contrast. 3-dimensional maximum intensity projection images were obtained. *One or more of the following individualized dose reduction techniques were utilized for this examination: 1. Automated exposure control. 2. Adjustment of the mA and/or kV according to patient size. 3. Use of iterative reconstruction technique. COMPARISON: Noncontrast head CT obtained on the same date and head CT dated 06/22/2018. FINDINGS: The exam is significantly limited due to suboptimal contrast opacification of the neck and intracranial arteries. There is extensive decreased attenuation throughout the bilateral parietal lobes near the vertex and bilateral occipital lobes. This involves the white matter and overlying cortex. Evaluation for hemorrhage is limited in the presence of intravenous contrast. There is no mass effect or midline shift. There is no hydrocephalus. The orbits and paranasal sinuses are unremarkable. There is fluid within the mastoid air cells. There is a common origin of the right innominate and left common carotid arteries, a normal arch variant. There is no hemodynamically significant stenosis involving the aortic arch great vessels origins. The vertebral arteries are codominant. These appear to be patent throughout their entire extent, with evaluation limited due to aforementioned suboptimal contrast bolus. There is also venous contamination surrounding the distal vertebral arteries which limits evaluation. The carotid bifurcations appear to be widely patent. There is no convincing stenosis involving the distal internal carotid arteries, with evaluation limited due to venous contamination within the cavernous sinuses. The anterior and middle cerebral arteries and basilar artery are widely patent. The posterior cerebral arteries are patent. No convincing aneurysm is seen. No convincing enhancing lesion is seen. There is bilateral apical groundglass opacity with septal line thickening due to interstitial infiltrate. There is no pneumothorax. There is instrumented fusion at C5-C6. No suspicious osseous lesion is seen. IMPRESSION: 1. Significantly limited exam due to suboptimal contrast opacification of the neck and intracranial arteries. This is due to a limited intravenous access and pressure limitations. No convincing hemodynamically significant stenosis is seen, allowing for limitations described above. 2. Extensive hypodensity within the posterior cerebral white matter and overlying cortex. This is better characterized on the noncontrast CT obtained the same date. The differential includes acute or subacute infarction as well as etiologies such as posterior reversible leukoencephalopathy syndrome. This can be better assessed with MRI. Findings were discussed with Wendy, the nurse caring for the patient, at 2040 hours on 06/29/2018. PQRS Compliance Statement - Stenosis calculations for CT, MR and conventional angiography are based upon measurement of the distal ICA diameter in accordance with the NASCET methodology. Stenosis calculations for carotid ultrasound studies are derived from validated velocity criteria which are known to correlate with the NASCET methodology. Electronically signed by: Maureen Dang MD (06/29/2018 9:26 PM) [facility]
[2018-06-29] MEDS: MORPHINE SULFATE 2 MG/ML VIAL. IV PRN (22:37)
[2018-06-29] MEDS: HEPARIN for SUB-Q USE 5,000 UNIT/ML VIAL. SQ SCH (22:43)
--- NOTE | 2018-06-29 23:30 | NUR ---
Rapid Response Note: Rapid Response called by patient's RN for seizure activity; RN states patient had a seizure at 2301 that lasted 2 min and entailed his whole body shaking. Upon arrival patients eyes are closed but he is arousable to his name but is unable to answer any questions--disoriented to place, time, and recent events. Patient was moving all extremities and was very restless, not following any commands. Initial vital signs at 2310--BP 212/133, HR 138, RR 26, O2 Sat 98%. Repeat BP at 2312 190/121 and at 2315 189/114; patient does have an order to treat if SBP>190. Lung sounds clear anteriorly/posteriorly, heart tones RRR, tele ST rate ranging from 135-150, +2 radial/pedal pulses and patient is generally edematous +2. Dr Palmer paged, returned paged and notified of seizure activity and BP. Orders received to start Kepra 500MG IV Q12HRS and transfer patient to ICU. RN and patient notified, patient unable to respond to understanding. Just prior to transfer, patient had another seizure tonic/clonic in nature with foaming of the mouth, seizure lasted ~3minutes. Post seizure patient with loud irregular snoring respirations oxygen saturation 93% and patient again unresponsive. Patient transferred to ICU room 110 via bed accompanied by 3 RN's, all belongings transferred with the patient. Addendum: 06/30/18 at 0046 by FLORENTINO GARCIA RN Amended: Links added.
[2018-06-30] VITALS (23 sets, daily range): BP systolic 110–186; BP diastolic 70–103
--- NOTE | 2018-06-30 00:05 | NUR ---
This nurse notified of patient's loss of vision during shift change. Patient assessed, pupils reactive to light, but patient stated he cannot see anything. Charge nurse notified of circumstances, code stroke called for patient around 1999, due to vision loss and headache. Stroke scale completed by ICU charge nurse. This nurse agrees with results. Dr. Palmer notified at this time, Head CT and Head CTA ordered. This nurse communicated results to Dr. Palmer, who put in orders for patient. Patient to stay on floor at this time. Received orders for IV pain medications for headache from Dr. Yancey at 2230. Upon checking vitals at 2301, aide in room let us know patient was seizing. Rapid response called at this time. Patient able to state name after event, unable to answer where he is at or situation. Dr. Palmer notified, ICU charge nurse received orders to transfer to ICU. Last blood pressure taken on floor was 166/106, heart rate 140. Patient experienced another seizure upon transfer. Bedside report given to ICU nurse upon arrival to unit.
[2018-06-30] MEDS ORDERED: levETIRAcetam 1,000 MG in IV DEXTROSE 5% 100ML 100 ML IV ONE (02:30)
--- NOTE | 2018-06-30 02:40 | NUR ---
Received patient in transfer from 6th floor, s/p seizure ( see RT notes). patient a&ox3, moves arms weakness note in legs more left than right. At 0015, patient had 2 more seizures. Keppra receive and given. Rest quietly 0200- noted patient having full arm and legs . Dr Palmer called- ordered Keppra 1000mg iv x1
--- NOTE | 2018-06-30 04:32 | NUR ---
patient has cont to have seizures. total of 9. Dr Michaels called ordered fosphenytoin x1 then if patient has one more seizure we are to intubate and sedate
[2018-06-30] MEDS ORDERED: FOSPHENYTOIN IV ONE (05:00)
[2018-06-30] MEDS ORDERED: NORMAL SALINE IV ONE (05:00)
[2018-06-30] MEDS ORDERED: PROPOFOL 100 ML IV ONE ×2 (05:58→06:30)
[2018-06-30] MEDS ORDERED: SUCCINYLCHOLINE 200 MG/10 ML VIAL. ONE (05:59)
[2018-06-30] MEDS: HEPARIN for SUB-Q USE 5,000 UNIT/ML VIAL. SQ SCH ×3 (06:00→22:36)
--- NOTE | 2018-06-30 06:15 | NUR ---
0615 noted a full body seizure, pre Dr Palmer call FRAME TABLE OPERATOR - patient was intubated, Propofol and Succ. given by FRAME TABLE OPERATOR prior. See interventions for vent sets.. CXR and KUB dobne
--- NOTE | 2018-06-30 06:25 | NUR ---
Paged Dr Hooker, returned page, notified of consultation for vent management and sedation. Notified of recent events of CVA and Seizures, CXR ordered for tube placement and KUB for OF placement--orders received for Vent protocol sedation of Propofol, Fentanyl, and change Propofol to Versed if patient becomes hemodynamically unstable, ABGs in one hour, continue vent settings of AC 16, TV 500, FiO2 50%, Peep 5. See orders.
[2018-06-30] MEDS ORDERED: MIDAZOLAM 100mg/100ml NS BAG 100 ML IV PRN (06:30)
[2018-06-30] MEDS ORDERED: SUCCINYLCHOLINE 200 MG/10 ML VIAL. IV ONE (06:30)
[2018-06-30] MEDS: PANTOPRAZOLE 40 MG TABLET.DR. PO SCH (07:30)
--- NOTE | 2018-06-30 07:52 | RAD ---
Portable abdomen, 06/30/2018: HISTORY: Check gastric tube placement A supine view of the upper abdomen demonstrates an NG tube extending into the proximal body of the stomach. There is mild gaseous distention of the stomach and bowel loops in the upper abdomen. IMPRESSION: The NG tube extends into the body of the stomach. Electronically signed by: Antonio Anderson MD (06/30/2018 7:49 AM) [facility]
--- NOTE | 2018-06-30 07:55 | RAD ---
Portable chest, 06/30/2018: HISTORY: Intubation, postcode Comparison is made to a study from 06/22/2018. An ET tube has been inserted with its tip located 5 cm above the jennifer. An NG tube extends into the stomach. A right jugular dialysis type catheter remains in place extending into the right atrium. The heart is enlarged. There are moderate infrahilar infiltrates, left greater than right. On the previous study there were more extensive infiltrates primarily in the upper lobes. The findings probably reflect recurrent pulmonary edema. A small amount of left-sided pleural fluid is evident. IMPRESSION: 1. Interval insertion of an ET tube and NG tube in satisfactory positions. 2. Moderate parahilar infiltrate, greatest on the left, most compatible with pulmonary edema with a small amount of associated left-sided pleural fluid. Pneumonia is less likely. Electronically signed by: Antonio Anderson MD (06/30/2018 7:52 AM) [facility]
[2018-06-30] MEDS: SEVELAMER CARBONATE 800 MG TABLET. PO SCH ×3 (08:00→17:00)
--- NOTE | 2018-06-30 08:18 | EKG ---
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
--- NOTE | 2018-06-30 08:35 | PDOC2 ---
NEUROLOGY CONSULT Date of Admission Date of Admission DATE: 06/30/18 TIME: 08:26 Reason for Consult Reason for Consult: Originally for vision loss, then patient developed seizures Referring Physician Referring Physician: Dr. Villagomez Source Source: Chart review History of Present Illness History of Present Illness The patient is a 47-year-old right-handed male admitted on 06/22 for dizziness, falls, nausea, vomiting, and he was found to have acute kidney injury. He was placed on dialysis and sent home, but returned yesterday morning because he was unable to afford dialysis. Yesterday morning in the emergency department he was complained of some blurred vision. I was paged at 20:12 yesterday evening that the patient had complete loss of vision and generalized weakness especially in the legs. I obtain CT of the head and CT angiogram, as reviewed below. The patient did have a negative head CT on 06/22 during the first admission. The CT shows posterior reversible encephalopathy syndrome. I placed the patient on blood pressure management and stroke protocol, see orders, but then the patient started having convulsive seizures. He awoke between each one. He had seizures despite levetiracetam a total of 1500 mg, so I added on a dose of fosphenytoin with instructions to intubate him if seizures persisted after the fosphenytoin. He had one additional seizure and now is intubated on sedation and has had no further seizures. We know of no prior history of stroke, seizure, or head injury. I left a message with the patient's friend who has not returned my call. He has psychiatric diagnoses of schizophrenia, depression, and anxiety. Past Medical History GI: Hemorrhoids, Other (diarrhea) Heme/Onc: Cancer (thyroid (Para?)) Psych: Anxiety, Depression, Schizophrenia Renal/: Acute renal failure Endocrine: Other (Arron's disease) Past Surgical History Past Surgical History: Cholecystectomy, Other (cervical fusion, left knee, parathyroidectomy) Family History Family History: Hypertension Social History Social History He is homeless, he denied earlier having use of alcohol, tobacco, or street drugs. Current Medications Current Medications Current Medications Morphine Sulfate (Morphine Sulfate) 4 mg 1X ONCE IV Last administered on 06/29/18at 11:40; Start 06/29/18 at 11:30; Stop 06/29/18 at 11:31; Status DC Ondansetron HCl (Zofran) 4 mg 1X ONCE IV Last administered on 06/29/18 11:44; Start 06/29/18 at 11:45; Stop 06/29/18 at 11:46; Status DC Ondansetron HCl (Zofran) 4 mg STK-MED ONCE .ROUTE ; Start 06/29/18 at 11:43; Stop 06/29/18 at 11:44; Status DC Ondansetron HCl (Zofran) 4 mg PRN Q8HRS PRN IV NAUSEA/VOMITING; Start 06/29/18 at 12:15; Stop 06/30/18 at 12:14 Morphine Sulfate (Morphine Sulfate) 4 mg 1X ONCE IV Last administered on 06/29/18 13:25; Start 06/29/18 at 13:30; Stop 06/29/18 at 13:31; Status DC Clonidine HCl (Catapres) 0.1 mg BID PO ; Start 06/29/18 at 21:00 Cyanocobalamin (Vitamin B-12) 1,000 mcg DAILY PO Last administered on 06/29/18 18:32; Start 06/29/18 at 16:30 Sevelamer Carbonate (Renvela) 800 mg TIDWMEALS PO Last administered on 06/29/18 18:32; Start 06/29/18 at 17:00 Hydrocortisone (Cortef) 20 mg DAILYWBKFT PO Last administered on 06/29/18 18:31; Start 06/29/18 at 16:30 Multivitamins (Thera M Plus) 1 tab DAILY PO Last administered on 06/29/18 18:32; Start 06/29/18 at 16:30 Olanzapine (ZyPREXA) 20 mg QHS PO ; Start 06/29/18 at 21:00 Pantoprazole Sodium (Protonix) 40 mg DAILYAC PO Last administered on 06/29/18 18:31; Start 06/29/18 at 16:30 Heparin Sodium (Porcine) (Heparin Sodium) 5,000 unit Q8HRS SQ Last administered on 06/30/18at 06:00; Start 06/29/18 at 22:00 Acetaminophen (Tylenol) 650 mg 1X ONCE PO Last administered on 06/29/18 18:32; Start 06/29/18 at 16:30; Stop 06/29/18 at 16:31; Status DC Oxycodone/ Acetaminophen (Percocet 5/325) 1 tab PRN Q4HRS PRN PO PAIN; Start 06/29/18 at 20:00 Iohexol (Omnipaque 350 Mg/ml) 75 ml 1X ONCE IV Last administered on 06/29/18at 21:01; Start 06/29/18 at 21:00; Stop 06/29/18 at 21:03; Status DC Labetalol HCl (Normodyne Iv Push) 10 mg PRN Q10MIN PRN IVP HYPERTENSION, SEE COMMENTS; Start 06/29/18 at 21:15 Acetaminophen (Tylenol) 650 mg PRN Q6HRS PRN PO TEMP > 100.4F; Start 06/29/18 at 21:15 Acetaminophen (Tylenol Supp) 650 mg PRN Q4HRS PRN [place] TEMP > 100.4F; Start 06/29/18 at 21:15 Aspirin (Ecotrin) 325 mg DAILYWBKFT PO ; Start 06/30/18 at 08:00 Aspirin (Aspirin Rectal Supp) 300 mg PRN DAILY PRN [place] IF UNABLE TO TAKE PO; Start 06/29/18 at 21:15 Morphine Sulfate (Morphine Sulfate) 2 mg PRN Q2HR PRN IV SEVERE PAIN Last administered on 06/29/18at 22:37; Start 06/29/18 at 22:30 Levetiracetam 500 mg/Dextrose 105 ml @ 420 mls/hr Q12HR IV Last administered o n 06/30/18at 00:00; Start 06/30/18 at 00:00 Levetiracetam 1000 mg/Dextrose 110 ml @ 440 mls/hr 1X ONCE IV Last administered on 06/30/18at 02:25; Start 06/30/18 at 02:30; Stop 06/30/18 at 02:44; Status DC Lorazepam (Ativan) 1 mg PRN Q2HRS PRN IV TREMORS; Start 06/30/18 at 02:00 Fosphenytoin Sodium 1390 mg/ Sodium Chloride 77.8 ml @ 311.2 mls/ hr 1X ONCE IV Last administered on 06/30/18at 04:44; Start 06/30/18 at 05:00; Stop 06/30/18 at 05:14; Status DC Propofol 100 ml @ As Directed STK-MED ONCE IV ; Start 06/30/18 at 05:58; Stop 06/30/18 at 05:59; Status DC Succinylcholine Chloride (Anectine) 200 mg STK-MED ONCE .ROUTE ; Start 06/30/18 at 05:59; Stop 06/30/18 at 06:00; Status DC Propofol 100 ml @ 1.39 mls/hr 1X ONCE IV Last administered on 06/30/18at 06:30; Start 06/30/18 at 06:30; Stop 07/03/18 at 06:26 Succinylcholine Chloride (Anectine) 200 mg 1X ONCE IV Last administered on 06/30/18at 06:21; Start 06/30/18 at 06:30; Stop 06/30/18 at 06:31; Status DC Propofol 100 ml @ 0 mls/hr CONT PRN IV SEE I/O RECORD; Start 06/30/18 at 06:30 Fentanyl Citrate 30 ml @ 0 mls/hr CONT PRN IV SEE PROTOCOL; Start 06/30/18 at 06:30 Midazolam HCl 100 ml @ 0 mls/hr CONT PRN IV SEE PROTOCOL; Start 06/30/18 at 06:30 Active Scripts Active Clonidine Hcl 0.1 Mg Tablet 0.1 Mg PO BID [Pantoprazole] 40 MG Tablet.dr 40 Mg PO DAILYAC MDD 1 Renvela (Sevelamer Carbonate) 800 Mg Tablet 800 Mg PO TIDWMEALS MDD 1 Reported Multivitamins (Multivitamin) 1 Each Tablet 1 Tab PO DAILY Vitamin B-12 (Cyanocobalamin (Vitamin B-12)) 1,000 Mcg Tablet 1 Tab PO DAILY Olanzapine 20 Mg Tablet 20 Mg PO QHS Cortef (Hydrocortisone) 20 Mg Tablet 20 Mg PO DAILY Allergies Allergies: Coded Allergies: No Known Drug Allergies (Unverified , 06/22/18) ROS Review of System Negative for fever, chills, weight loss, shortness of breath, chest pain, indigestion, hematochezia, melena, and dysuria. Full 14-point review of systems is negative. Physical Exam Physical Examination General: Well-developed, well-nourished white male intubated in the intensive care unit in no acute distress HEENT: Normocephalic andatraumatic. Temporal arteriespulsatile and nontender. Neck: Supple without bruit, no meningismus Musculoskeletal: Stability:see neurologic. Gait exam:see neurologic. Tone:see neurologic.Strength:see neurologic. Neurological: Mental Status:orientation, memory, attention span/concentration, language, fund of knowledge: Intubated and sedated. Cranial Nerves:Pupils equal and reactive to light, extraocular movements areintact. There is no facial asymmetry. Vestibulo-ocular reflex is intact.All other cranial related problems are negative except as mentioned before.Reflexes:2+ and symmetric with flexor plantar responses. Motor:No movement to pain. Coordination:Not tested. Gait:Not tested. Sensory:Not tested. Vitals VITALS Vital Signs Date Time Temp Pulse Resp B/P (MAP) Pulse Ox O2 Delivery O2 Flow Rate FiO2 06/30/18 06:10 97 Ventilator 06/30/18 06:03 120 14 157/91 (113) 06/29/18 23:30 98.2 98.2 Labs Labs Laboratory Tests Test 06/29/18 10:30 06/29/18 10:45 06/29/18 17:43 06/29/18 20:00 Glucose (Fingerstick) 85 mg/dL (70-99) 87 mg/dL (70-99) 116 mg/dL (70-99) White Blood Count 7.6 x10^3/uL (4.0-11.0) Red Blood Count 3.03 x10^6/uL (4.30-5.70) Hemoglobin 9.3 g/dL (13.0-17.5) Hematocrit 28.0 % (39.0-53.0) Mean Corpuscular Volume 93 fL (79-100) Mean Corpuscular Hemoglobin 31 pg (25-35) Mean Corpuscular Hemoglobin Concent 33 g/dL (31-37) Red Cell Distribution Width 17.8 % (11.5-14.5) Platelet Count 276 x10^3/uL (140-400) Neutrophils (%) (Auto) 73 % (31-73) Lymphocytes (%) (Auto) 14 % (24-48) Monocytes (%) (Auto) 11 % (0-9) Eosinophils (%) (Auto) 2 % (0-3) Basophils (%) (Auto) 0 % (0-3) Neutrophils # (Auto) 5.6 x10^3uL (1.8-7.7) Lymphocytes # (Auto) 1.0 x10^3/uL (1.0-4.8) Monocytes # (Auto) 0.9 x10^3/uL (0.0-1.1) Eosinophils # (Auto) 0.1 x10^3/uL (0.0-0.7) Basophils # (Auto) 0.0 x10^3/uL (0.0-0.2) Prothrombin Time 13.6 SEC (11.7-14.0) Prothromb Time International Ratio 1.1 (0.8-1.1) Activated Partial Thromboplast Time 27 SEC (24-38) Sodium Level 141 mmol/L (136-145) Potassium Level 3.3 mmol/L (3.5-5.1) Chloride Level 105 mmol/L (98-107) Carbon Dioxide Level 24 mmol/L (21-32) Anion Gap 12 (6-14) Blood Urea Nitrogen 37 mg/dL (8-26) Creatinine 6.9 mg/dL (0.7-1.3) Estimated GFR (Cockcroft-Gault) 8.7 BUN/Creatinine Ratio 5 (6-20) Glucose Level 94 mg/dL (70-99) Calcium Level 7.1 mg/dL (8.5-10.1) Total Bilirubin 0.6 mg/dL (0.2-1.0) Aspartate Amino Transf (AST/SGOT) 31 U/L (15-37) Alanine Aminotransferase (ALT/SGPT) 38 U/L (16-63) Alkaline Phosphatase 81 U/L (46-116) Creatine Kinase 99 U/L (39-308) Creatine Kinase MB (Mass) 0.6 ng/mL (0.0-3.6) Creatine Kinase MB Relative Index 0.6 % (0-4) Troponin I Quantitative 0.056 ng/mL (0.000-0.055) Total Protein 5.6 g/dL (6.4-8.2) Albumin 2.1 g/dL (3.4-5.0) Albumin/Globulin Ratio 0.6 (1.0-1.7) Lipase 236 U/L (73-393) Test 06/29/18 23:04 Glucose (Fingerstick) 139 mg/dL (70-99) Laboratory Tests Test 06/29/18 10:30 06/29/18 10:45 06/29/18 17:43 06/29/18 20:00 Glucose (Fingerstick) 85 mg/dL (70-99) 87 mg/dL (70-99) 116 mg/dL (70-99) White Blood Count 7.6 x10^3/uL (4.0-11.0) Red Blood Count 3.03 x10^6/uL (4.30-5.70) Hemoglobin 9.3 g/dL (13.0-17.5) Hematocrit 28.0 % (39.0-53.0) Mean Corpuscular Volume 93 fL (79-100) Mean Corpuscular Hemoglobin 31 pg (25-35) Mean Corpuscular Hemoglobin Concent 33 g/dL (31-37) Red Cell Distribution Width 17.8 % (11.5-14.5) Platelet Count 276 x10^3/uL (140-400) Neutrophils (%) (Auto) 73 % (31-73) Lymphocytes (%) (Auto) 14 % (24-48) Monocytes (%) (Auto) 11 % (0-9) Eosinophils (%) (Auto) 2 % (0-3) Basophils (%) (Auto) 0 % (0-3) Neutrophils # (Auto) 5.6 x10^3uL (1.8-7.7) Lymphocytes # (Auto) 1.0 x10^3/uL (1.0-4.8) Monocytes # (Auto) 0.9 x10^3/uL (0.0-1.1) Eosinophils # (Auto) 0.1 x10^3/uL (0.0-0.7) Basophils # (Auto) 0.0 x10^3/uL (0.0-0.2) Prothrombin Time 13.6 SEC (11.7-14.0) Prothromb Time International Ratio 1.1 (0.8-1.1) Activated Partial Thromboplast Time 27 SEC (24-38) Sodium Level 141 mmol/L (136-145) Potassium Level 3.3 mmol/L (3.5-5.1) Chloride Level 105 mmol/L (98-107) Carbon Dioxide Level 24 mmol/L (21-32) Anion Gap 12 (6-14) Blood Urea Nitrogen 37 mg/dL (8-26) Creatinine 6.9 mg/dL (0.7-1.3) Estimated GFR (Cockcroft-Gault) 8.7 BUN/Creatinine Ratio 5 (6-20) Glucose Level 94 mg/dL (70-99) Calcium Level 7.1 mg/dL (8.5-10.1) Total Bilirubin 0.6 mg/dL (0.2-1.0) Aspartate Amino Transf (AST/SGOT) 31 U/L (15-37) Alanine Aminotransferase (ALT/SGPT) 38 U/L (16-63) Alkaline Phosphatase 81 U/L (46-116) Creatine Kinase 99 U/L (39-308) Creatine Kinase MB (Mass) 0.6 ng/mL (0.0-3.6) Creatine Kinase MB Relative Index 0.6 % (0-4) Troponin I Quantitative 0.056 ng/mL (0.000-0.055) Total Protein 5.6 g/dL (6.4-8.2) Albumin 2.1 g/dL (3.4-5.0) Albumin/Globulin Ratio 0.6 (1.0-1.7) Lipase 236 U/L (73-393) Test 06/29/18 23:04 Glucose (Fingerstick) 139 mg/dL (70-99) Images Images CT angiogram of the head and neck with intravenous contrast. HISTORY: Vision loss. Cerebral infarction. TECHNIQUE: Computed tomographic images of the head and neck were obtained following the administration of 75 cc Omnipaque 350 intravenous contrast. 3-dimensional maximum intensity projection images were obtained. *One or more of the following individualized dose reduction techniques were utilized for this examination: 1. Automated exposure control. 2. Adjustment of the mA and/or kV according to patient size. 3. Use of iterative reconstruction technique. COMPARISON: Noncontrast head CT obtained on the same date and head CT dated 06/22/2018. FINDINGS: The exam is significantly limited due to suboptimal contrast opacification of the neck and intracranial arteries. There is extensive decreased attenuation throughout the bilateral parietal lobes near the vertex and bilateral occipital lobes. This involves the white matter and overlying cortex. Evaluation for hemorrhage is limited in the presence of intravenous contrast. There is no mass effect or midline shift. There is no hydrocephalus. The orbits and paranasal sinuses are unremarkable. There is fluid within the mastoid air cells. There is a common origin of the right innominate and left common carotid arteries, a normal arch variant. There is no hemodynamically significant stenosis involving the aortic arch great vessels origins. The vertebral arteries are codominant. These appear to be patent throughout their entire extent, with evaluation limited due to aforementioned suboptimal contrast bolus. There is also venous contamination surrounding the distal vertebral arteries which limits evaluation. The carotid bifurcations appear to be widely patent. There is no convincing stenosis involving the distal internal carotid arteries, with evaluation limited due to venous contamination within the cavernous sinuses. The anterior and middle cerebral arteries and basilar artery are widely patent. The posterior cerebral arteries are patent. No convincing aneurysm is seen. No convincing enhancing lesion is seen. There is bilateral apical groundglass opacity with septal line thickening due to interstitial infiltrate. There is no pneumothorax. There is instrumented fusion at C5-C6. No suspicious osseous lesion is seen. IMPRESSION: 1. Significantly limited exam due to suboptimal contrast opacification of the neck and intracranial arteries. This is due to a limited intravenous access and pressure limitations. No convincing hemodynamically significant stenosis is seen, allowing for limitations described above. 2. Extensive hypodensity within the posterior cerebral white matter and overlying cortex. This is better characterized on the noncontrast CT obtained the same date. The differential includes acute or subacute infarction as well as etiologies such as posterior reversible leukoencephalopathy syndrome. This can be better assessed with MRI. Assessment/Plan Assessment/Plan Impression: Posterior reversible encephalopathy syndrome, PRES, related to hypertension and kidney disease. Seizures due to PRES Recommendations: Continue levetiracetam and Dilantin Continue intubation and sedation. EEG won't be helpful at this point as we do have an etiology for seizures, will delay until 07/03. ICU supportive care Dialysis Hold on lumbar puncture. Phenytoin level tomorrow morning I left a message with the patient's friend. Thank you for letting me help with the patient's care. ARLEEN LOZADA MD June 30, 2018 08:35
[2018-06-30] MEDS: MULTIVITAMIN with MINERAL TABLET. PO SCH (09:00)
[2018-06-30] MEDS: CYANOCOBALAMIN (VITAMIN B-12) 1,000 MCG TABLET. PO SCH (09:00)
[2018-06-30 09:21] LABS: CHOLESTEROL/HDL RATIO 3.5
[2018-06-30 09:34] LABS: BASE EXCESS ABG 3 mmol/L (-3-3); HCO3 ABG 26 mmol/L (21-28); PCO2 ABG 34 mmHg (35-46); PO2 ABG 129 mmHg (75-108); SAT O2 ABG 98 % (92-99)
[2018-06-30 09:38] LABS: CORRECTED PCO2 ABG 36 mmHg; CORRECTED PH ABG 7.49; CORRECTED PO2 ABG 137 mmHg
[2018-06-30 09:39] LABS: FIO2 ABG 50
[2018-06-30] MEDS: levETIRAcetam 500 MG in IV DEXTROSE 5% 100ML 100 ML IV SCH ×4 (10:13→21:40)
[2018-06-30] MEDS: HYDROCORTISONE 10 MG TABLET PO SCH (10:15)
[2018-06-30] MEDS: ASPIRIN ENTERIC COATED 325 MG TABLET.DR. PO SCH (10:15)
[2018-06-30] MEDS: cloNIDine HCL 0.1 MG TABLET PO SCH ×2 (10:18→21:00)
--- NOTE | 2018-06-30 10:58 | PDOC2 ---
CONSULT Date of Consult Date of Consult DATE: 06/30/18 TIME: 10:22 Reason for Consult Reason for Consult: RENAL FAILURE AND INCREASED BP Referring Physician Referring Physician: JAZMINE Identification/Chief Complaint Chief Complaint HEADACHE WEAKNESS Source Source: Chart review History of Present Illness Reason for Visit: THIS IS A 47 YR OLD WITH COMPLAINTS OF WEAKNESS AND SOME VISION LOSS. HX NOTABLE FOR PRESENTING HERE COUPLE WEEKS AGO WITH A CR OF ABOUT 17. NOTED TO HAVE ESRD AND PLACED ON HD. HE HAS NO INSURANCE AND SO WAS DISCHARGED AND THEN TO COME BACK VIA THE ER FOR HD. LAST INPT HD WAS TUESDAY AND HE CAME BACK YESTERDAY ALSO REQUESTING DIALYSIS. WE DIALYZED HIM EMERGENTLY LAST NIGHT. HE DID HAVE A RENAL BX DONE EARLIER THIS WEEK AND THE TISSUE IS C/W ANTI GBM GOODPASTURES BUT HE HAS NOT HAD ANY PULMONARY INVOLVEMENT. HE WAS ADMITTED AND SINCE THEN HAS HAD SEIZURES. HTN VERY MUCH UNCONTROLLED AND HE IS PROBABLY NON COMPLIANT WITH HIS MEDS DUE TO NO COVERAGE. IMAGING C/W POSTERIOR LEUCOENCEPHALOPTHY SYNDROME AND HE IS INTUBATED AND IN THE ICU. NEUROLOGY EVALUATION IS ONGOING AT THIS TIME. LABS ARE C/W ESRD. HE IS ALSO ANEMIC WITH HGB OF 9.3 Past Medical History Past Medical History HEPATITIS B GI: Hemorrhoids, Other (diarrhea) Heme/Onc: Anemia NOS, Cancer (thyroid (Para?)) Psych: Anxiety, Depression, Schizophrenia Renal/: Acute renal failure, Chronic renal failure Endocrine: Other (Arron's disease) Past Surgical History Past Surgical History RENAL BX Past Surgical History: Cholecystectomy, Other (cervical fusion, left knee, parathyroidectomy) Family History Family History UNKNOWN Family History: No Significant, Hypertension Social History No ALCOHOL: none Drugs: None Current Problem List Problem List Problems Medical Problems: (1) Hypertension Status: Acute Current Medications Current Medications Current Medications Morphine Sulfate (Morphine Sulfate) 4 mg 1X ONCE IV Last administered on 06/29/18at 11:40; Start 06/29/18 at 11:30; Stop 06/29/18 at 11:31; Status DC Ondansetron HCl (Zofran) 4 mg 1X ONCE IV Last administered on 06/29/18at 11:44; Start 06/29/18 at 11:45; Stop 06/29/18 at 11:46; Status DC Ondansetron HCl (Zofran) 4 mg STK-MED ONCE .ROUTE ; Start 06/29/18 at 11:43; Stop 06/29/18 at 11:44; Status DC Ondansetron HCl (Zofran) 4 mg PRN Q8HRS PRN IV NAUSEA/VOMITING; Start 06/29/18 at 12:15; Stop 06/30/18 at 12:14 Morphine Sulfate (Morphine Sulfate) 4 mg 1X ONCE IV Last administered on 06/29/18 13:25; Start 06/29/18 at 13:30; Stop 06/29/18 at 13:31; Status DC Clonidine HCl (Catapres) 0.1 mg BID PO Last administered on 06/30/18 10:18; Start 06/29/18 at 21:00 Cyanocobalamin (Vitamin B-12) 1,000 mcg DAILY PO Last administered on 06/29/18 18:32; Start 06/29/18 at 16:30 Sevelamer Carbonate (Renvela) 800 mg TIDWMEALS PO Last administered on 06/29/18 18:32; Start 06/29/18 at 17:00 Hydrocortisone (Cortef) 20 mg DAILYWBKFT PO Last administered on 06/30/18 10:15; Start 06/29/18 at 16:30 Multivitamins (Thera M Plus) 1 tab DAILY PO Last administered on 06/29/18 18 :32; Start 06/29/18 at 16:30 Olanzapine (ZyPREXA) 20 mg QHS PO ; Start 06/29/18 at 21:00 Pantoprazole Sodium (Protonix) 40 mg DAILYAC PO Last administered on 06/29/18 18:31; Start 06/29/18 at 16:30 Heparin Sodium (Porcine) (Heparin Sodium) 5,000 unit Q8HRS SQ Last administered on 06/30/18 06:00; Start 06/29/18 at 22:00 Acetaminophen (Tylenol) 650 mg 1X ONCE PO Last administered on 06/29/18 18:32; Start 06/29/18 at 16:30; Stop 06/29/18 at 16:31; Status DC Oxycodone/ Acetaminophen (Percocet 5/325) 1 tab PRN Q4HRS PRN PO PAIN; Start 06/29/18 at 20:00 Iohexol (Omnipaque 350 Mg/ml) 75 ml 1X ONCE IV Last administered on 06/29/18at 21:01; Start 06/29/18 at 21:00; Stop 06/29/18 at 21:03; Status DC Labetalol HCl (Normodyne Iv Push) 10 mg PRN Q10MIN PRN IVP HYPERTENSION, SEE COMMENTS; Start 06/29/18 at 21:15 Acetaminophen (Tylenol) 650 mg PRN Q6HRS PRN PO TEMP > 100.4F; Start 06/29/18 at 21:15 Acetaminophen (Tylenol Supp) 650 mg PRN Q4HRS PRN DC TEMP > 100.4F; Start 06/29/18 at 21:15 Aspirin (Ecotrin) 325 mg DAILYWBKFT PO Last administered on 06/30/18at 10:15; Start 06/30/18 at 08:00 Aspirin (Aspirin Rectal Supp) 300 mg PRN DAILY PRN DC IF UNABLE TO TAKE PO; Start 06/29/18 at 21:15 Morphine Sulfate (Morphine Sulfate) 2 mg PRN Q2HR PRN IV SEVERE PAIN Last administered on 06/29/18at 22:37; Start 06/29/18 at 22:30 Levetiracetam 500 mg/Dextrose 105 ml @ 420 mls/hr Q12HR IV Last administered on 06/30/18at 10:13; Start 06/30/18 at 00:00 Levetiracetam 1000 mg/Dextrose 110 ml @ 440 mls/hr 1X ONCE IV Last administered on 06/30/18at 02:25; Start 06/30/18 at 02:30; Stop 06/30/18 at 02:44; Status DC Lorazepam (Ativan) 1 mg PRN Q2HRS PRN IV TREMORS; Start 06/30/18 at 02:00 Fosphenytoin Sodium 1390 mg/ Sodium Chloride 77.8 ml @ 311.2 mls/ hr 1X ONCE IV Last administered on 06/30/18at 04:44; Start 06/30/18 at 05:00; Stop 06/30/18 at 05:14; Status DC Propofol 100 ml @ As Directed STK-MED ONCE IV ; Start 06/30/18 at 05:58; Stop 06/30/18 at 05:59; Status DC Succinylcholine Chloride (Anectine) 200 mg STK-MED ONCE .ROUTE ; Start 06/30/18 at 05:59; Stop 06/30/18 at 06:00; Status DC Propofol 100 ml @ 1.39 mls/hr 1X ONCE IV Last administered on 06/30/18at 06:30 ; Start 06/30/18 at 06:30; Stop 07/03/18 at 06:26 Succinylcholine Chloride (Anectine) 200 mg 1X ONCE IV Last administered on at 06:21; Start 06/30/18 at 06:30; Stop 06/30/18 at 06:31; Status DC Propofol 100 ml @ 0 mls/hr CONT PRN IV SEE I/O RECORD; Start 06/30/18 at 06:30 Fentanyl Citrate 30 ml @ 0 mls/hr CONT PRN IV SEE PROTOCOL; Start 06/30/18 at 06:30 Midazolam HCl 100 ml @ 0 mls/hr CONT PRN IV SEE PROTOCOL; Start 06/30/18 at 06:30 Fosphenytoin Sodium (Cerebyx) 100 mg Q8HRS IV ; Start 06/30/18 at 14:00 Active Scripts Active Clonidine Hcl 0.1 Mg Tablet 0.1 Mg PO BID [Pantoprazole] 40 MG Tablet.dr 40 Mg PO DAILYAC MDD 1 Renvela (Sevelamer Carbonate) 800 Mg Tablet 800 Mg PO TIDWMEALS MDD 1 Reported Multivitamins (Multivitamin) 1 Each Tablet 1 Tab PO DAILY Vitamin B-12 (Cyanocobalamin (Vitamin B-12)) 1,000 Mcg Tablet 1 Tab PO DAILY Olanzapine 20 Mg Tablet 20 Mg PO QHS Cortef (Hydrocortisone) 20 Mg Tablet 20 Mg PO DAILY Allergies Allergies: Coded Allergies: No Known Drug Allergies (Unverified , 06/22/18) ROS Review of System UNABLE TO OBTAIN Physical Exam General: Other (INTUBATED, WELL DEVELOPED) HEENT: Atraumatic, PERRLA, Other (ET TUBE) Lungs: Clear to auscultation Heart: Regular rate, Normal S1, Normal S2 Abdomen: Normal bowel sounds, Soft Extremities: No cyanosis Skin: Other (NUMEROUS TATTOOS) Neuro: Other (SEDATED) Psych/Mental Status: Other (SEDATED) MUSCULOSKELETAL: No joint tenderness, No deformity, No swelling, Other (RIGHT CHEST WALL TDC FOR DIALYSIS) Vitals VITALS Vital Signs Date Time Temp Pulse Resp B/P (MAP) Pulse Ox O2 Delivery O2 Flow Rate FiO2 06/30/18 10:18 172/92 06/30/18 09:00 102 18 97 Room Air 06/30/18 08:00 100.4 100.4 Labs Labs Laboratory Tests Test 06/29/18 10:30 06/29/18 10:45 06/29/18 17:43 06/29/18 20:00 Glucose (Fingerstick) 85 mg/dL (70-99) 87 mg/dL (70-99) 116 mg/dL (70-99) White Blood Count 7.6 x10^3/uL (4.0-11.0) Red Blood Count 3.03 x10^6/uL (4.30-5.70) Hemoglobin 9.3 g/dL (13.0-17.5) Hematocrit 28.0 % (39.0-53.0) Mean Corpuscular Volume 93 fL (79-100) Mean Corpuscular Hemoglobin 31 pg (25-35) Mean Corpuscular Hemoglobin Concent 33 g/dL (31-37) Red Cell Distribution Width 17.8 % (11.5-14.5) Platelet Count 276 x10^3/uL (140-400) Neutrophils (%) (Auto) 73 % (31-73) Lymphocytes (%) (Auto) 14 % (24-48) Monocytes (%) (Auto) 11 % (0-9) Eosinophils (%) (Auto) 2 % (0-3) Basophils (%) (Auto) 0 % (0-3) Neutrophils # (Auto) 5.6 x10^3uL (1.8-7.7) Lymphocytes # (Auto) 1.0 x10^3/uL (1.0-4.8) Monocytes # (Auto) 0.9 x10^3/uL (0.0-1.1) Eosinophils # (Auto) 0.1 x10^3/uL (0.0-0.7) Basophils # (Auto) 0.0 x10^3/uL (0.0-0.2) Prothrombin Time 13.6 SEC (11.7-14.0) Prothromb Time International Ratio 1.1 (0.8-1.1) Activated Partial Thromboplast Time 27 SEC (24-38) Sodium Level 141 mmol/L (136-145) Potassium Level 3.3 mmol/L (3.5-5.1) Chloride Level 105 mmol/L (98-107) Carbon Dioxide Level 24 mmol/L (21-32) Anion Gap 12 (6-14) Blood Urea Nitrogen 37 mg/dL (8-26) Creatinine 6.9 mg/dL (0.7-1.3) Estimated GFR (Cockcroft-Gault) 8.7 BUN/Creatinine Ratio 5 (6-20) Glucose Level 94 mg/dL (70-99) Calcium Level 7.1 mg/dL (8.5-10.1) Total Bilirubin 0.6 mg/dL (0.2-1.0) Aspartate Amino Transf (AST/SGOT) 31 U/L (15-37) Alanine Aminotransferase (ALT/SGPT) 38 U/L (16-63) Alkaline Phosphatase 81 U/L (46-116) Creatine Kinase 99 U/L (39-308) Creatine Kinase MB (Mass) 0.6 ng/mL (0.0-3.6) Creatine Kinase MB Relative Index 0.6 % (0-4) Troponin I Quantitative 0.056 ng/mL (0.000-0.055) Total Protein 5.6 g/dL (6.4-8.2) Albumin 2.1 g/dL (3.4-5.0) Albumin/Globulin Ratio 0.6 (1.0-1.7) Lipase 236 U/L (73-393) Test 06/29/18 23:04 06/30/18 08:45 06/30/18 09:00 Glucose (Fingerstick) 139 mg/dL (70-99) Triglycerides Level 91 mg/dL (0-150) Cholesterol Level 169 mg/dL (0-200) LDL Cholesterol, Calculated 103 mg/dL (0-100) VLDL Cholesterol, Calculated 18 mg/dL (0-40) Non-HDL Cholesterol Calculated 121 mg/dL (0-129) HDL Cholesterol 48 mg/dL (40-60) Cholesterol/HDL Ratio 3.5 O2 Saturation 98 % (92-99) Arterial Blood pH 7.51 (7.35-7.45) Arterial Blood pH (Temp corrected) 7.49 Arterial Blood pCO2 at Patient Temp 34 mmHg (35-46) Arterial Blood pCO2 (Temp correct) 36 mmHg Arterial Blood pO2 at Patient Temp 129 mmHg (75-108) Arterial Blood pO2 (Temp corrected) 137 mmHg Arterial Blood HCO3 26 mmol/L (21-28) Arterial Blood Base Excess 3 mmol/L (-3-3) FiO2 50 Laboratory Tests Test 06/29/18 10:30 06/29/18 10:45 06/29/18 17:43 06/29/18 20:00 Glucose (Fingerstick) 85 mg/dL (70-99) 87 mg/dL (70-99) 116 mg/dL (70-99) White Blood Count 7.6 x10^3/uL (4.0-11.0) Red Blood Count 3.03 x10^6/uL (4.30-5.70) Hemoglobin 9.3 g/dL (13.0-17.5) Hematocrit 28.0 % (39.0-53.0) Mean Corpuscular Volume 93 fL (79-100) Mean Corpuscular Hemoglobin 31 pg (25-35) Mean Corpuscular Hemoglobin Concent 33 g/dL (31-37) Red Cell Distribution Width 17.8 % (11.5-14.5) Platelet Count 276 x10^3/uL (140-400) Neutrophils (%) (Auto) 73 % (31-73) Lymphocytes (%) (Auto) 14 % (24-48) Monocytes (%) (Auto) 11 % (0-9) Eosinophils (%) (Auto) 2 % (0-3) Basophils (%) (Auto) 0 % (0-3) Neutrophils # (Auto) 5.6 x10^3uL (1.8-7.7) Lymphocytes # (Auto) 1.0 x10^3/uL (1.0-4.8) Monocytes # (Auto) 0.9 x10^3/uL (0.0-1.1) Eosinophils # (Auto) 0.1 x10^3/uL (0.0-0.7) Basophils # (Auto) 0.0 x10^3/uL (0.0-0.2) Prothrombin Time 13.6 SEC (11.7-14.0) Prothromb Time International Ratio 1.1 (0.8-1.1) Activated Partial Thromboplast Time 27 SEC (24-38) Sodium Level 141 mmol/L (136-145) Potassium Level 3.3 mmol/L (3.5-5.1) Chloride Level 105 mmol/L (98-107) Carbon Dioxide Level 24 mmol/L (21-32) Anion Gap 12 (6-14) Blood Urea Nitrogen 37 mg/dL (8-26) Creatinine 6.9 mg/dL (0.7-1.3) Estimated GFR (Cockcroft-Gault) 8.7 BUN/Creatinine Ratio 5 (6-20) Glucose Level 94 mg/dL (70-99) Calcium Level 7.1 mg/dL (8.5-10.1) Total Bilirubin 0.6 mg/dL (0.2-1.0) Aspartate Amino Transf (AST/SGOT) 31 U/L (15-37) Alanine Aminotransferase (ALT/SGPT) 38 U/L (16-63) Alkaline Phosphatase 81 U/L (46-116) Creatine Kinase 99 U/L (39-308) Creatine Kinase MB (Mass) 0.6 ng/mL (0.0-3.6) Creatine Kinase MB Relative Index 0.6 % (0-4) Troponin I Quantitative 0.056 ng/mL (0.000-0.055) Total Protein 5.6 g/dL (6.4-8.2) Albumin 2.1 g/dL (3.4-5.0) Albumin/Globulin Ratio 0.6 (1.0-1.7) Lipase 236 U/L (73-393) Test 06/29/18 23:04 06/30/18 08:45 06/30/18 09:00 Glucose (Fingerstick) 139 mg/dL (70-99) Triglycerides Level 91 mg/dL (0-150) Cholesterol Level 169 mg/dL (0-200) LDL Cholesterol, Calculated 103 mg/dL (0-100) VLDL Cholesterol, Calculated 18 mg/dL (0-40) Non-HDL Cholesterol Calculated 121 mg/dL (0-129) HDL Cholesterol 48 mg/dL (40-60) Cholesterol/HDL Ratio 3.5 O2 Saturation 98 % (92-99) Arterial Blood pH 7.51 (7.35-7.45) Arterial Blood pH (Temp corrected) 7.49 Arterial Blood pCO2 at Patient Temp 34 mmHg (35-46) Arterial Blood pCO2 (Temp correct) 36 mmHg Arterial Blood pO2 at Patient Temp 129 mmHg (75-108) Arterial Blood pO2 (Temp corrected) 137 mmHg Arterial Blood HCO3 26 mmol/L (21-28) Arterial Blood Base Excess 3 mmol/L (-3-3) FiO2 50 Images Images MPRESSION: 1. Significantly limited exam due to suboptimal contrast opacification of the neck and intracranial arteries. This is due to a limited intravenous access and pressure limitations. No convincing hemodynamically significant stenosis is seen, allowing for limitations described above. 2. Extensive hypodensity within the posterior cerebral white matter and overlying cortex. This is better characterized on the noncontrast CT obtained the same date. The differential includes acute or subacute infarction as well as etiologies such as posterior reversible leukoencephalopathy syndrome. This can be better assessed with MRI. Assessment/Plan Assessment/Plan IMP MALIGNANT HTN SEIZURES ENCEPHALOPATHY POSTERIOR LEUCOENCEPHALOPATHY SYDROME NEW ESRD-DUE TO [id number] PROVEN FROM EARLIER THIS WEEK ANEMIA SCHIZOPHRENIA HEP B-HAS POS ANTIBODIES TOBACCOISM NON COMPLIANCE PLAN EMERGENT HD DIALYSIS DONE LAST NIGHT AND THEN WILL PLAN FOR TTS CONTROL BP 10-25% OF HIGHEST BP-CAN USE CARDENE GTT IF NEEDED JHONATAN WHEN HTN IS BETTER CONTROLLED NEUROLOGY EVALUATION AND TX SEDATION AND INTUBATION DUE TO SEIZURES ANTISEIZURE MEDS PER NEUROLOGY CHECK ANTI GBM AND ANCA SINCE ABOUT 40% PTS MAY HAVE RELATED VASCULITIS-MPA OR GPA CHECK SED RATE AND UA CHECK PO4 MARBIN SORIANO MD June 30, 2018 10:58
--- NOTE | 2018-06-30 11:33 | PDOC ---
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 Noncompliance History of Present Illness History of Present Illness Patient is a pleasant middle-aged male who we just had in the hospital last week and we have started him on dialysis Yesterday he we presented to the ER with complaints of neurologic symptoms and we don't think he was following up with his doctors are going to dialysis either or even taken any of his meds While he was in the ER he started having seizures Dr. Michaels was notified the giving him IV Her and Dilantin but he continued having seizures He was then intubated and now admitted to the ICU where he's been examined and he is on the ventilator Vent settings assist control/16/500/50% with 5 of PEEP and he is satting 97% He is sedated and on IV Keppra Vitals Vitals Vital Signs Date Time Temp Pulse Resp B/P (MAP) Pulse Ox O2 Delivery O2 Flow Rate FiO2 06/30/18 11:04 96 Ventilator 06/30/18 10:18 172/92 06/30/18 09:00 102 18 06/30/18 08:00 100.4 100.4 Physical Exam General: Other (INTUBATED, WELL DEVELOPED) Heart: Regular rate, Normal S1, Normal S2 Lungs: Wheezing Abdomen: Normal bowel sounds, Soft Extremities: No cyanosis Skin: Other (NUMEROUS TATTOOS) Labs LABS Laboratory Tests Test 06/29/18 17:43 06/29/18 20:00 06/29/18 23:04 06/30/18 08:45 Glucose (Fingerstick) 87 mg/dL (70-99) 116 mg/dL (70-99) 139 mg/dL (70-99) Triglycerides Level 91 mg/dL (0-150) Cholesterol Level 169 mg/dL (0-200) LDL Cholesterol, Calculated 103 mg/dL (0-100) VLDL Cholesterol, Calculated 18 mg/dL (0-40) Non-HDL Cholesterol Calculated 121 mg/dL (0-129) HDL Cholesterol 48 mg/dL (40-60) Cholesterol/HDL Ratio 3.5 Test 06/30/18 09:00 O2 Saturation 98 % (92-99) Arterial Blood pH 7.51 (7.35-7.45) Arterial Blood pH (Temp corrected) 7.49 Arterial Blood pCO2 at Patient Temp 34 mmHg (35-46) Arterial Blood pCO2 (Temp correct) 36 mmHg Arterial Blood pO2 at Patient Temp 129 mmHg (75-108) Arterial Blood pO2 (Temp corrected) 137 mmHg Arterial Blood HCO3 26 mmol/L (21-28) Arterial Blood Base Excess 3 mmol/L (-3-3) FiO2 50 Review of Systems Review of Systems UnAble to obtain Assessment and Plan Assessmemt and Plan Problems Medical Problems: (1) Hypertension Status: Acute Respiratory failure Seizures Goodpasture's disease newly diagnosed Newly started on dialysis Noncompliance Plan Vent weaning IV Keppra Pulmonary and neurology consults DVT prophylaxis Tuesday dialysis Nephrology consult Full code Frequent labs Prognosis guarded Total time 32 minutes Comment Review of Relevant I have reviewed the following items medardo (where applicable) has been applied. Labs Laboratory Tests Test 06/29/18 10:30 06/29/18 10:45 06/29/18 17:43 06/29/18 20:00 Glucose (Fingerstick) 85 mg/dL (70-99) 87 mg/dL (70-99) 116 mg/dL (70-99) White Blood Count 7.6 x10^3/uL (4.0-11.0) Red Blood Count 3.03 x10^6/uL (4.30-5.70) Hemoglobin 9.3 g/dL (13.0-17.5) Hematocrit 28.0 % (39.0-53.0) Mean Corpuscular Volume 93 fL (79-100) Mean Corpuscular Hemoglobin 31 pg (25-35) Mean Corpuscular Hemoglobin Concent 33 g/dL (31-37) Red Cell Distribution Width 17.8 % (11.5-14.5) Platelet Count 276 x10^3/uL (140-400) Neutrophils (%) (Auto) 73 % (31-73) Lymphocytes (%) (Auto) 14 % (24-48) Monocytes (%) (Auto) 11 % (0-9) Eosinophils (%) (Auto) 2 % (0-3) Basophils (%) (Auto) 0 % (0-3) Neutrophils # (Auto) 5.6 x10^3uL (1.8-7.7) Lymphocytes # (Auto) 1.0 x10^3/uL (1.0-4.8) Monocytes # (Auto) 0.9 x10^3/uL (0.0-1.1) Eosinophils # (Auto) 0.1 x10^3/uL (0.0-0.7) Basophils # (Auto) 0.0 x10^3/uL (0.0-0.2) Prothrombin Time 13.6 SEC (11.7-14.0) Prothromb Time International Ratio 1.1 (0.8-1.1) Activated Partial Thromboplast Time 27 SEC (24-38) Sodium Level 141 mmol/L (136-145) Potassium Level 3.3 mmol/L (3.5-5.1) Chloride Level 105 mmol/L (98-107) Carbon Dioxide Level 24 mmol/L (21-32) Anion Gap 12 (6-14) Blood Urea Nitrogen 37 mg/dL (8-26) Creatinine 6.9 mg/dL (0.7-1.3) Estimated GFR (Cockcroft-Gault) 8.7 BUN/Creatinine Ratio 5 (6-20) Glucose Level 94 mg/dL (70-99) Calcium Level 7.1 mg/dL (8.5-10.1) Total Bilirubin 0.6 mg/dL (0.2-1.0) Aspartate Amino Transf (AST/SGOT) 31 U/L (15-37) Alanine Aminotransferase (ALT/SGPT) 38 U/L (16-63) Alkaline Phosphatase 81 U/L (46-116) Creatine Kinase 99 U/L (39-308) Creatine Kinase MB (Mass) 0.6 ng/mL (0.0-3.6) Creatine Kinase MB Relative Index 0.6 % (0-4) Troponin I Quantitative 0.056 ng/mL (0.000-0.055) Total Protein 5.6 g/dL (6.4-8.2) Albumin 2.1 g/dL (3.4-5.0) Albumin/Globulin Ratio 0.6 (1.0-1.7) Lipase 236 U/L (73-393) Test 06/29/18 23:04 06/30/18 08:45 06/30/18 09:00 Glucose (Fingerstick) 139 mg/dL (70-99) Triglycerides Level 91 mg/dL (0-150) Cholesterol Level 169 mg/dL (0-200) LDL Cholesterol, Calculated 103 mg/dL (0-100) VLDL Cholesterol, Calculated 18 mg/dL (0-40) Non-HDL Cholesterol Calculated 121 mg/dL (0-129) HDL Cholesterol 48 mg/dL (40-60) Cholesterol/HDL Ratio 3.5 O2 Saturation 98 % (92-99) Arterial Blood pH 7.51 (7.35-7.45) Arterial Blood pH (Temp corrected) 7.49 Arterial Blood pCO2 at Patient Temp 34 mmHg (35-46) Arterial Blood pCO2 (Temp correct) 36 mmHg Arterial Blood pO2 at Patient Temp 129 mmHg (75-108) Arterial Blood pO2 (Temp corrected) 137 mmHg Arterial Blood HCO3 26 mmol/L (21-28) Arterial Blood Base Excess 3 mmol/L (-3-3) FiO2 50 Laboratory Tests Test 06/29/18 17:43 06/29/18 20:00 06/29/18 23:04 06/30/18 08:45 Glucose (Fingerstick) 87 mg/dL (70-99) 116 mg/dL (70-99) 139 mg/dL (70-99) Triglycerides Level 91 mg/dL (0-150) Cholesterol Level 169 mg/dL (0-200) LDL Cholesterol, Calculated 103 mg/dL (0-100) VLDL Cholesterol, Calculated 18 mg/dL (0-40) Non-HDL Cholesterol Calculated 121 mg/dL (0-129) HDL Cholesterol 48 mg/dL (40-60) Cholesterol/HDL Ratio 3.5 Test 06/30/18 09:00 O2 Saturation 98 % (92-99) Arterial Blood pH 7.51 (7.35-7.45) Arterial Blood pH (Temp corrected) 7.49 Arterial Blood pCO2 at Patient Temp 34 mmHg (35-46) Arterial Blood pCO2 (Temp correct) 36 mmHg Arterial Blood pO2 at Patient Temp 129 mmHg (75-108) Arterial Blood pO2 (Temp corrected) 137 mmHg Arterial Blood HCO3 26 mmol/L (21-28) Arterial Blood Base Excess 3 mmol/L (-3-3) FiO2 50 Medications Current Medications Morphine Sulfate (Morphine Sulfate) 4 mg 1X ONCE IV Last administered on 06/29/18at 11:40; Start 06/29/18 at 11:30; Stop 06/29/18 at 11:31; Status DC Ondansetron HCl (Zofran) 4 mg 1X ONCE IV Last administered on 06/29/18 11:44; Start 06/29/18 at 11:45; Stop 06/29/18 at 11:46; Status DC Ondansetron HCl (Zofran) 4 mg STK-MED ONCE .ROUTE ; Start 06/29/18 at 11:43; Stop 06/29/18 at 11:44; Status DC Ondansetron HCl (Zofran) 4 mg PRN Q8HRS PRN IV NAUSEA/VOMITING; Start 06/29/18 at 12:15; Stop 06/30/18 at 12:14 Morphine Sulfate (Morphine Sulfate) 4 mg 1X ONCE IV Last administered on 06/29/18 13:25; Start 06/29/18 at 13:30; Stop 06/29/18 at 13:31; Status DC Clonidine HCl (Catapres) 0.1 mg BID PO Last administered on 06/30/18 10:18; Start 06/29/18 at 21:00 Cyanocobalamin (Vitamin B-12) 1,000 mcg DAILY PO Last administered on 06/29/18 18:32; Start 06/29/18 at 16:30 Sevelamer Carbonate (Renvela) 800 mg TIDWMEALS PO Last administered on 06/29/18 18:32; Start 06/29/18 at 17:00 Hydrocortisone (Cortef) 20 mg DAILYWBKFT PO Last administered on 06/30/18 10:15; Start 06/29/18 at 16:30 Multivitamins (Thera M Plus) 1 tab DAILY PO Last administered on 06/29/18 18:32; Start 06/29/18 at 16:30 Olanzapine (ZyPREXA) 20 mg QHS PO ; Start 06/29/18 at 21:00 Pantoprazole Sodium (Protonix) 40 mg DAILYAC PO Last administered on 06/29/18 18:31; Start 06/29/18 at 16:30 Heparin Sodium (Porcine) (Heparin Sodium) 5,000 unit Q8HRS SQ Last administered on 06/30/18 06:00; Start 06/29/18 at 22:00 Acetaminophen (Tylenol) 650 mg 1X ONCE PO Last administered on 06/29/18 18:32; Start 06/29/18 at 16:30; Stop 06/29/18 at 16:31; Status DC Oxycodone/ Acetaminophen (Percocet 5/325) 1 tab PRN Q4HRS PRN PO PAIN; Start 06/29/18 at 20:00 Iohexol (Omnipaque 350 Mg/ml) 75 ml 1X ONCE IV Last administered on 06/29/18at 21:01; Start 06/29/18 at 21:00; Stop 06/29/18 at 21:03; Status DC Labetalol HCl (Normodyne Iv Push) 10 mg PRN Q10MIN PRN IVP HYPERTENSION, SEE COMMENTS; Start 06/29/18 at 21:15 Acetaminophen (Tylenol) 650 mg PRN Q6HRS PRN PO TEMP > 100.4F; Start 06/29/18 at 21:15 Acetaminophen (Tylenol Supp) 650 mg PRN Q4HRS PRN CA TEMP > 100.4F; Start 06/29/18 at 21:15 Aspirin (Ecotrin) 325 mg DAILYWBKFT PO Last administered on 06/30/18at 10:15; Start 06/30/18 at 08:00 Aspirin (Aspirin Rectal Supp) 300 mg PRN DAILY PRN CA IF UNABLE TO TAKE PO; Start 06/29/18 at 21:15 Morphine Sulfate (Morphine Sulfate) 2 mg PRN Q2HR PRN IV SEVERE PAIN Last administered on 06/29/18at 22:37; Start 06/29/18 at 22:30 Levetiracetam 500 mg/Dextrose 105 ml @ 420 mls/hr Q12HR IV Last administered on 06/30/18at 10:13; Start 06/30/18 at 00:00 Levetiracetam 1000 mg/Dextrose 110 ml @ 440 mls/hr 1X ONCE IV Last administered on 06/30/18at 02:25; Start 06/30/18 at 02:30; Stop 06/30/18 at 02 :44; Status DC Lorazepam (Ativan) 1 mg PRN Q2HRS PRN IV TREMORS; Start 06/30/18 at 02:00 Fosphenytoin Sodium 1390 mg/ Sodium Chloride 77.8 ml @ 311.2 mls/ hr 1X ONCE IV Last administered on 06/30/18at 04:44; Start 06/30/18 at 05:00; Stop 06/30/18 at 05:14; Status DC Propofol 100 ml @ As Directed STK-MED ONCE IV ; Start 06/30/18 at 05:58; Stop 06/30/18 at 05:59; Status DC Succinylcholine Chloride (Anectine) 200 mg STK-MED ONCE .ROUTE ; Start 06/30/18 at 05:59; Stop 06/30/18 at 06:00; Status DC Propofol 100 ml @ 1.39 mls/hr 1X ONCE IV Last administered on 06/30/18at 06:30; Start 06/30/18 at 06:30; Stop 07/03/18 at 06:26 Succinylcholine Chloride (Anectine) 200 mg 1X ONCE IV Last administered on 06/30/18at 06:21; Start 06/30/18 at 06:30; Stop 06/30/18 at 06:31; Status DC Propofol 100 ml @ 0 mls/hr CONT PRN IV SEE I/O RECORD; Start 06/30/18 at 06:30 Fentanyl Citrate 30 ml @ 0 mls/hr CONT PRN IV SEE PROTOCOL; Start 06/30/18 at 06:30 Midazolam HCl 100 ml @ 0 mls/hr CONT PRN IV SEE PROTOCOL; Start 06/30/18 at 06:30 Fosphenytoin Sodium (Cerebyx) 100 mg Q8HRS IV ; Start 06/30/18 at 14:00 Active Scripts Active Clonidine Hcl 0.1 Mg Tablet 0.1 Mg PO BID [Pantoprazole] 40 MG Tablet.dr 40 Mg PO DAILYAC MDD 1 Renvela (Sevelamer Carbonate) 800 Mg Tablet 800 Mg PO TIDWMEALS MDD 1 Reported Multivitamins (Multivitamin) 1 Each Tablet 1 Tab PO DAILY Vitamin B-12 (Cyanocobalamin (Vitamin B-12)) 1,000 Mcg Tablet 1 Tab PO DAILY Olanzapine 20 Mg Tablet 20 Mg PO QHS Cortef (Hydrocortisone) 20 Mg Tablet 20 Mg PO DAILY Vitals/I & O Vital Sign - Last 24 Hours 06/29/18 06/29/18 06/29/18 06/29/18 11:35 11:40 11:47 12:10 Pulse 90 80 Resp 12 20 11 16 Pulse Ox 96 97 95 96 O2 Delivery Room Air Room Air 06/29/18 06/29/18 06/29/18 06/29/18 12:17 12:47 13:17 13:25 Pulse 90 94 90 Resp 19 23 12 18 Pulse Ox 97 97 96 O2 Delivery Room Air 06/29/18 06/29/18 06/29/18 06/29/18 17:39 18:50 19:30 20:00 Temp 98.8 99.5 98.8 99.5 Pulse 93 99 Resp 17 18 B/P (MAP) 166/93 (117) 160/93 (115) Pulse Ox 96 96 O2 Delivery Room Air Room Air Room Air Room Air 06/29/18 06/29/18 06/29/18 06/29/18 22:37 23:00 23:10 23:11 Temp 99.0 99.0 Pulse 93 130 Resp 18 26 B/P (MAP) 169/107 (127) 212/133 (159) Pulse Ox 98 98 O2 Delivery Room Air Room Air Room Air Room Air 06/29/18 06/29/18 06/29/18 06/29/18 23:12 23:15 23:30 23:45 Temp 98.2 98.2 Pulse 131 140 136 130 Resp 24 22 20 21 B/P (MAP) 190/121 (144) 189/114 (139) 182/90 (120) 186/103 (130) Pulse Ox 98 97 99 98 O2 Delivery Room Air Room Air Room Air Room Air 06/29/18 06/29/18 06/30/18 06/30/18 23:59 23:59 00:30 01:00 Pulse 128 130 131 Resp 22 21 14 B/P (MAP) 192/103 (132) 186/103 (130) 184/94 (124) Pulse Ox 98 98 98 O2 Delivery Room Air Room Air Room Air Room Air 06/30/18 06/30/18 06/30/18 06/30/18 02:00 03:00 04:00 04:30 Pulse 126 118 116 Resp 23 23 27 B/P (MAP) 172/95 (120) 180/96 (124) 179/96 (123) Pulse Ox 98 98 98 O2 Delivery Room Air Room Air Room Air Room Air 06/30/18 06/30/18 06/30/18 06/30/18 05:00 06:03 06:10 07:00 Pulse 118 120 128 Resp 14 14 30 B/P (MAP) 181/98 (125) 157/91 (113) 152/102 (119) Pulse Ox 98 98 97 97 O2 Delivery Room Air Room Air Ventilator Room Air 06/30/18 06/30/18 06/30/18 06/30/18 08:00 08:00 09:00 09:00 Temp 100.4 100.4 Pulse 112 102 Resp 16 18 B/P (MAP) 154/89 (110) 173/93 (119) Pulse Ox 97 96 97 O2 Delivery Mechanical Ventilator Room Air Ventilator Room Air 06/30/18 06/30/18 10:18 11:04 B/P (MAP) 172/92 Pulse Ox 96 O2 Delivery Ventilator Intake and Output 06/29/18 06/29/18 06/30/18 15:00 23:00 07:00 Intake Total 0 ml 200 ml Balance 0 ml 200 ml SILVANO HARDY III DO June 30, 2018 11:33
[2018-06-30] MEDS: PROPOFOL 100 ML IV PRN ×2 (12:20→22:34)
[2018-06-30 13:03] LABS: BILIRUBIN,URINE MODERATE (NEG); COLOR,URINE RED; NITRITE,URINE POSITIVE (NEG); PH,URINE 7.5; PROTEIN,URINE >=300 mg/dL (NEG-TRACE); UROBILINOGEN,URINE 0.2 mg/dL (0.2 mg/dL)
[2018-06-30 13:10] LABS: CLARITY,URINE CLOUDY
[2018-06-30 13:11] LABS: HYALINE CASTS, URINE MODERATE /HPF; RBC,URINE TNTC /HPF (0-2)
[2018-06-30 13:13] LABS: BACTERIA,URINE FEW /HPF (0-FEW)
--- NOTE | 2018-06-30 13:41 | NUR ---
SS following for discharge planning. SS reviewed pt chart. Pt is from home and is currently on the vent. Pt is self pay. HCFS following for self pay status. Pt was denied for OPHD setup by [facility] on last admission. SS will resubmit referral to [facility] admissions.
--- NOTE | 2018-06-30 14:46 | PDOC ---
PULMONARY PROGRESS NOTES Vitals Vital Signs Date Time Temp Pulse Resp B/P (MAP) Pulse Ox O2 Delivery O2 Flow Rate FiO2 06/30/18 11:04 96 Ventilator 06/30/18 10:18 172/92 06/30/18 09:00 102 18 06/30/18 08:00 100.4 100.4 Lungs: Wheezing Labs Laboratory Tests Test 06/29/18 10:30 06/29/18 10:45 06/29/18 17:43 06/29/18 20:00 Glucose (Fingerstick) 85 mg/dL (70-99) 87 mg/dL (70-99) 116 mg/dL (70-99) White Blood Count 7.6 x10^3/uL (4.0-11.0) Red Blood Count 3.03 x10^6/uL (4.30-5.70) Hemoglobin 9.3 g/dL (13.0-17.5) Hematocrit 28.0 % (39.0-53.0) Mean Corpuscular Volume 93 fL (79-100) Mean Corpuscular Hemoglobin 31 pg (25-35) Mean Corpuscular Hemoglobin Concent 33 g/dL (31-37) Red Cell Distribution Width 17.8 % (11.5-14.5) Platelet Count 276 x10^3/uL (140-400) Neutrophils (%) (Auto) 73 % (31-73) Lymphocytes (%) (Auto) 14 % (24-48) Monocytes (%) (Auto) 11 % (0-9) Eosinophils (%) (Auto) 2 % (0-3) Basophils (%) (Auto) 0 % (0-3) Neutrophils # (Auto) 5.6 x10^3uL (1.8-7.7) Lymphocytes # (Auto) 1.0 x10^3/uL (1.0-4.8) Monocytes # (Auto) 0.9 x10^3/uL (0.0-1.1) Eosinophils # (Auto) 0.1 x10^3/uL (0.0-0.7) Basophils # (Auto) 0.0 x10^3/uL (0.0-0.2) Prothrombin Time 13.6 SEC (11.7-14.0) Prothromb Time International Ratio 1.1 (0.8-1.1) Activated Partial Thromboplast Time 27 SEC (24-38) Sodium Level 141 mmol/L (136-145) Potassium Level 3.3 mmol/L (3.5-5.1) Chloride Level 105 mmol/L (98-107) Carbon Dioxide Level 24 mmol/L (21-32) Anion Gap 12 (6-14) Blood Urea Nitrogen 37 mg/dL (8-26) Creatinine 6.9 mg/dL (0.7-1.3) Estimated GFR (Cockcroft-Gault) 8.7 BUN/Creatinine Ratio 5 (6-20) Glucose Level 94 mg/dL (70-99) Calcium Level 7.1 mg/dL (8.5-10.1) Total Bilirubin 0.6 mg/dL (0.2-1.0) Aspartate Amino Transf (AST/SGOT) 31 U/L (15-37) Alanine Aminotransferase (ALT/SGPT) 38 U/L (16-63) Alkaline Phosphatase 81 U/L (46-116) Creatine Kinase 99 U/L (39-308) Creatine Kinase MB (Mass) 0.6 ng/mL (0.0-3.6) Creatine Kinase MB Relative Index 0.6 % (0-4) Troponin I Quantitative 0.056 ng/mL (0.000-0.055) Total Protein 5.6 g/dL (6.4-8.2) Albumin 2.1 g/dL (3.4-5.0) Albumin/Globulin Ratio 0.6 (1.0-1.7) Lipase 236 U/L (73-393) Test 06/29/18 23:04 06/30/18 08:45 06/30/18 09:00 06/30/18 12:55 Glucose (Fingerstick) 139 mg/dL (70-99) Erythrocyte Sedimentation Rate 24 (0-15) Triglycerides Level 91 mg/dL (0-150) Cholesterol Level 169 mg/dL (0-200) LDL Cholesterol, Calculated 103 mg/dL (0-100) VLDL Cholesterol, Calculated 18 mg/dL (0-40) Non-HDL Cholesterol Calculated 121 mg/dL (0-129) HDL Cholesterol 48 mg/dL (40-60) Cholesterol/HDL Ratio 3.5 O2 Saturation 98 % (92-99) Arterial Blood pH 7.51 (7.35-7.45) Arterial Blood pH (Temp corrected) 7.49 Arterial Blood pCO2 at Patient Temp 34 mmHg (35-46) Arterial Blood pCO2 (Temp correct) 36 mmHg Arterial Blood pO2 at Patient Temp 129 mmHg (75-108) Arterial Blood pO2 (Temp corrected) 137 mmHg Arterial Blood HCO3 26 mmol/L (21-28) Arterial Blood Base Excess 3 mmol/L (-3-3) FiO2 50 Urine Collection Type Unknown Urine Color Red Urine Clarity Cloudy Urine pH 7.5 Urine Specific [place] 1.025 Urine Protein >=300 mg/dL (NEG-TRACE) Urine Glucose (UA) 100 mg/dL (NEG) Urine Ketones (Stick) Trace mg/dL (NEG) Urine Blood Large (NEG) Urine Nitrite Positive (NEG) Urine Bilirubin Moderate (NEG) Urine Urobilinogen Dipstick 0.2 mg/dL (0.2 mg/dL) Urine Leukocyte Esterase Moderate (NEG) Urine RBC Tntc /HPF (0-2) Urine WBC 11-20 /HPF (0-4) Urine Bacteria Few /HPF (0-FEW) Urine Hyaline Casts Moderate /HPF Urine Mucus Mod /LPF Laboratory Tests Test 06/29/18 17:43 06/29/18 20:00 06/29/18 23:04 06/30/18 08:45 Glucose (Fingerstick) 87 mg/dL (70-99) 116 mg/dL (70-99) 139 mg/dL (70-99) Erythrocyte Sedimentation Rate 24 (0-15) Triglycerides Level 91 mg/dL (0-150) Cholesterol Level 169 mg/dL (0-200) LDL Cholesterol, Calculated 103 mg/dL (0-100) VLDL Cholesterol, Calculated 18 mg/dL (0-40) Non-HDL Cholesterol Calculated 121 mg/dL (0-129) HDL Cholesterol 48 mg/dL (40-60) Cholesterol/HDL Ratio 3.5 Test 06/30/18 09:00 06/30/18 12:55 O2 Saturation 98 % (92-99) Arterial Blood pH 7.51 (7.35-7.45) Arterial Blood pH (Temp corrected) 7.49 Arterial Blood pCO2 at Patient Temp 34 mmHg (35-46) Arterial Blood pCO2 (Temp correct) 36 mmHg Arterial Blood pO2 at Patient Temp 129 mmHg (75-108) Arterial Blood pO2 (Temp corrected) 137 mmHg Arterial Blood HCO3 26 mmol/L (21-28) Arterial Blood Base Excess 3 mmol/L (-3-3) FiO2 50 Urine Collection Type Unknown Urine Color Red Urine Clarity Cloudy Urine pH 7.5 Urine Specific [place] 1.025 Urine Protein >=300 mg/dL (NEG-TRACE) Urine Glucose (UA) 100 mg/dL (NEG) Urine Ketones (Stick) Trace mg/dL (NEG) Urine Blood Large (NEG) Urine Nitrite Positive (NEG) Urine Bilirubin Moderate (NEG) Urine Urobilinogen Dipstick 0.2 mg/dL (0.2 mg/dL) Urine Leukocyte Esterase Moderate (NEG) Urine RBC Tntc /HPF (0-2) Urine WBC 11-20 /HPF (0-4) Urine Bacteria Few /HPF (0-FEW) Urine Hyaline Casts Moderate /HPF Urine Mucus Mod /LPF Medications Active Scripts Medications Dose Route/Sig Max Daily Dose Days Date Category Clonidine Hcl 0.1 Mg Tablet 0.1 Mg PO BID 06/27/18 Rx [Pantoprazole] 40 MG Tablet.dr 40 Mg PO DAILYAC MDD 1 06/27/18 Rx Renvela (Sevelamer Carbonate) 800 Mg Tablet 800 Mg PO TIDWMEALS MDD 1 06/27/18 Rx Multivitamins (Multivitamin) 1 Each Tablet 1 Tab PO DAILY 06/23/18 Reported Vitamin B-12 (Cyanocobalamin (Vitamin B-12)) 1,000 Mcg Tablet 1 Tab PO DAILY 06/23/18 Reported Olanzapine 20 Mg Tablet 20 Mg PO QHS 06/23/18 Reported Cortef (Hydrocortisone) 20 Mg Tablet 20 Mg PO DAILY 06/22/18 Reported Impression . full note dictated seizures resp failure will follow FLORINA BROWN MD June 30, 2018 14:46
[2018-06-30] MEDS: FOSPHENYTOIN 100 MG/2 ML VIAL. IV SCH ×2 (14:58→22:54)
[2018-06-30] MEDS: HYDROCORTISONE SOD SUCC/PF 100 MG/2 ML VIAL. IV SCH ×2 (14:58→22:39)
--- NOTE | 2018-06-30 15:00 | CARD ---
MR#: [id number] Date of Study: 06/30/2018 Ordering Physician: ARLEEN LOZADA, Referring Physician: JOSE LUCERO, Tech: Terra Rivas APPROVED REPORT EXAM: Two-dimensional and M-mode echocardiogram with Doppler and color Doppler. Other Information Quality : GoodHR: 100bpm INDICATION Posterior Reversible encephalopathy syndrome Echo Enhancing Agent Indication: Rule Out Septal Defect Agent/Amount Used: Agitated Saline 10mL 2D DIMENSIONS RVDd2.9 (2.9-3.5cm)Left Atrium(2D)3.9 (1.6-4.0cm) IVSd2.6 (0.7-1.1cm)Aortic Root(2D)3.3 (2.0-3.7cm) LVDd5.6 (3.9-5.9cm)LVOT Diameter2.2 (1.8-2.4cm) PWd1.0 (0.7-1.1cm)LVDs4.3 (2.5-4.0cm) FS (%) 24.0 %SV76.0 ml LVEF(%)47.1 (>50%) Aortic Valve AoV Peak Jeff.122.3cm/sAoV VTI18.4cm AO Peak GR.6.0mmHgLVOT VTI 16.56cm AO Mean GR.4mmHg Mitral Valve MV E Mhdazjuk33.3cm/sMV E Peak Gr.107mmHg MV DECEL [id number] A [place]87.2cm/s E/A Ratio1.3 TDI Lateral E' P. V10.04cm/sMedial E' P. V9.59cm/s E/Lateral E'8.2E/Medial E'8.6 Tricuspid Valve RAP [id number] Pulmonary Vein S1 Ozpbhylt31.8cm/sS2 Irxsyqeq05.87cm/s D2 Okplwyox25.9cm/sPVa [id number] LEFT VENTRICLE The left ventricle is normal size. There is borderline concentric left ventricular hypertrophy. The l eft ventricular systolic function is moderately impaired. The Ejection Fraction is 30-35%. There is g lobal hypokinesis of the left ventricle. The left ventricular diastolic function and filling is terry l for age. RIGHT VENTRICLE The right ventricle is borderline dilated. There is normal right ventricular wall thickness. The righ t ventricular systolic function is normal. ATRIA The left atrium size is normal. The right atrium size is normal. The interatrial septum is intact wit h no evidence for an atrial septal defect or patent foramen ovale as noted on 2-D or Doppler imaging. AORTIC VALVE The aortic valve is normal in structure and function. Doppler and Color Flow revealed trace aortic re gurgitation. There is no significant aortic valvular stenosis. MITRAL VALVE The mitral valve is thickened but opens well. There is no evidence of mitral valve prolapse. There is no mitral valve stenosis. Doppler and Color-flow revealed mild mitral regurgitation. TRICUSPID VALVE The tricuspid valve is normal in structure and function. Doppler and Color Flow revealed trace tricus pid regurgitation. There is no tricuspid valve stenosis. PULMONIC VALVE The pulmonic valve is not well visualized. Doppler and Color Flow revealed no pulmonic valvular regur gitation. GREAT VESSELS The aortic root is normal in size. The aortic root is normal in size. The IVC is normal in size and c ollapses >50% with inspiration. PERICARDIAL EFFUSION There is small left pleural effusion. There is no evidence of significant pericardial effusion. Critical Notification Critical Value: No <Conclusion> The left ventricular systolic function is moderately impaired. The Ejection Fraction is 30-35%. Mild mitral regurgitation. Trace tricuspid regurgitation. There is no evidence of significant pericardial effusion. Signed by : Unruly Garnett, Electronically Approved : 06/30/2018 14:59:45
--- NOTE | 2018-06-30 15:02 | RAD ---
MRI of the brain without contrast 06/30/2018 Clinical History: The patient is nonresponsive. Technique: Unenhanced T1-weighted sagittal and axial, T2-weighted axial and coronal and FLAIR, gradient echo and diffusion-weighted axial images of the brain were obtained. Findings: Comparison is made to the patient's CT scan of the head dated 06/29/2018. The ventricles are within normal limits in size and configuration. Symmetric areas of vasogenic edema are seen involving both cerebellar hemispheres, the posterior temporal lobes, occipital lobes and both parietal lobes along with the superior frontal lobes bilaterally. This corresponds to the low-attenuation areas seen on the patient's CT scan. These MRI and CT findings are consistent most likely with posterior reversible encephalopathy syndrome (PRES). Areas of decreased signal intensity are seen on the gradient echo images within the superior parietal lobes bilaterally consistent with small areas of hemorrhage. No definite area of restricted diffusion is seen. No extra-axial fluid collection is noted. The paranasal sinuses are essentially clear. There small to moderate-sized bilateral mastoid effusions. Normal flow voids are seen within the major vascular structures surrounding the brain parenchyma. IMPRESSION: Findings are seen consistent most likely with posterior reversible encephalopathy syndrome (PRES) as discussed above. Electronically signed by: Jaime Phillips MD (06/30/2018 2:59 PM) [id number]
--- NOTE | 2018-06-30 18:09 | NUR ---
full results of MRI report called to Dr. Valverde, no change continue heparin and asa
[2018-06-30] MEDS: OLANZapine 5 MG TABLET PO SCH (21:40)
[2018-07-01] VITALS (24 sets, daily range): BP systolic 93–146; BP diastolic 66–104
[2018-07-01] MEDS: HEPARIN for SUB-Q USE 5,000 UNIT/ML VIAL. SQ SCH ×3 (05:58→22:30)
[2018-07-01] MEDS: HYDROCORTISONE SOD SUCC/PF 100 MG/2 ML VIAL. IV SCH ×2 (06:01→14:22)
[2018-07-01] MEDS: FOSPHENYTOIN 100 MG/2 ML VIAL. IV SCH ×2 (06:08→14:21)
--- NOTE | 2018-07-01 06:38 | CONS ---
DATE OF CONSULTATION: 06/30/2018 ATTENDING PHYSICIAN: Zeferino Villagomez M.D. REASON FOR CONSULTATION: The patient seen in Pulmonary consultation at the request of Dr. Michaels for vent management. HISTORY OF PRESENT ILLNESS: The patient is a 47-year-old male who was admitted with dizziness, falls, vomiting, found to have acute kidney injury. He was placed on dialysis and sent home. He returned yesterday, unable for dialysis. The patient complained of some blurred vision. He had complete loss, blurred vision, generalized weakness, especially in the legs. CT of the head was obtained. CT angiogram was also reviewed. The patient's initial head CT revealed some new findings of hypodensity throughout the bilateral posterior cerebral hemisphere compatible with acute or subacute infarct. There was also some evidence of posterior reversible encephalopathy syndrome. There was no hemorrhage seen. The patient was treated for the above. He started having seizures. He was intubated. I was asked to see him in consultation. PAST MEDICAL HISTORY: Remarkable for schizophrenia, depression and anxiety. He has had previous thyroid or parathyroid cancer. There is also a history of acute renal failure and Arron's disease. PAST SURGICAL HISTORY: Status post cholecystectomy, cervical fusion, left knee surgery and parathyroidectomy. FAMILY HISTORY: Hypertension. SOCIAL HISTORY: Socially, he is homeless. REVIEW OF SYSTEMS: Unobtainable secondary to the patient's condition. ALLERGIES: No known drug allergies. CURRENT MEDICATIONS: List was reviewed. PHYSICAL EXAMINATION: VITAL SIGNS: Stable. O2 saturation was greater than 92%, currently on AC mode, tidal volume 500, rate of 16 yesterday and today, he had a T-max of 100.4. LUNGS: Clear. No wheezes. CARDIOVASCULAR: Regular rate and rhythm with S1 and S2. No S3. ABDOMEN: Soft, nontender and nondistended. EXTREMITIES: No clubbing, cyanosis or edema. LABORATORY DATA: Arterial blood gas this morning, pH of 7.41, PaCO2 , PaCO2 of 34 and pO2 of 129. White count was noted to be normal. Hemoglobin and hematocrit were noted. INR was 1.1. Electrolytes were noted. Troponin was elevated. Potassium was low. Albumin was low. IMPRESSION: 1. Acute respiratory failure secondary to seizures. 2. Posterior reversible encephalopathy syndrome related to hypertension and renal insufficiency. 3. Encephalopathy. 4. End-stage renal disease. 5. Schizophrenia. 6. Hepatitis B positive antibodies. 7. Tobacco abuse. 8. Noncompliance. PLAN: 1. We will continue support with mechanical ventilation, adjust minute ventilation. 2. Hemodialysis per Dr. West. 3. Control blood pressure. 4. Follow Neurology input. 5. The patient is to undergo MRI. 6. Rule out possible vasculitis. I do appreciate the privilege in sharing in Sb's care. FLORINA BROWN MD DR: ABELARDO/cody JOB#: [id number] / [id number]
[2018-07-01] MEDS ORDERED: ACETAMINOPHEN 500 MG TABLET PO PRN (07:45)
[2018-07-01] MEDS ORDERED: 0.9 % SODIUM CHLORIDE 10 ML DISP.SYRIN. IV PRN ×2 (07:45)
[2018-07-01] MEDS ORDERED: diphenhydrAMINE 50 MG/ML VIAL IV PRN ×2 (07:45)
[2018-07-01] MEDS ORDERED: ALBUMIN HUMAN 25% 200 ML IV PRN (08:00)
[2018-07-01] MEDS ORDERED: IV NORMAL SALINE 1000ML BAG 1,000 ML IV PRN ×2 (08:00)
[2018-07-01] MEDS ORDERED: DIALYSIS PATIENT. MC PRN (08:00)
[2018-07-01] MEDS: levETIRAcetam 500 MG in IV DEXTROSE 5% 100ML 100 ML IV SCH ×2 (08:27→22:25)
[2018-07-01] MEDS: LANSOPRAZOLE 30 MG TAB.RAP.DR NG SCH (08:27)
[2018-07-01] MEDS: CYANOCOBALAMIN (VITAMIN B-12) 1,000 MCG TABLET. PO SCH (08:27)
[2018-07-01] MEDS: HYDROCORTISONE 10 MG TABLET PO SCH (08:27)
[2018-07-01] MEDS: ASPIRIN ENTERIC COATED 325 MG TABLET.DR. PO SCH (08:28)
[2018-07-01] MEDS: MULTIVITAMIN with MINERAL TABLET. PO SCH (08:28)
[2018-07-01] MEDS: SEVELAMER CARBONATE 800 MG TABLET. PO SCH ×3 (08:28→16:03)
[2018-07-01] MEDS: cloNIDine HCL 0.1 MG TABLET PO SCH ×2 (08:28→21:00)
[2018-07-01 09:05] LABS: BASE EXCESS ABG 3 mmol/L (-3-3); HCO3 ABG 26 mmol/L (21-28); PCO2 ABG 34 mmHg (35-46); PO2 ABG 114 mmHg (75-108); SAT O2 ABG 98 % (92-99)
--- NOTE | 2018-07-01 09:16 | PDOC ---
PULMONARY PROGRESS NOTES Subjective PT ON AC MODE HD Vitals Vital Signs Date Time Temp Pulse Resp B/P (MAP) Pulse Ox O2 Delivery O2 Flow Rate FiO2 07/01/18 08:28 94 124/87 07/01/18 07:48 100 Ventilator 07/01/18 06:10 16 07/01/18 04:00 98.3 98.3 Lungs: Clear Cardiovascular: S1, S2 Abdomen: Soft Extremities: Other (EDEMA) Labs Laboratory Tests Test 06/29/18 10:30 06/29/18 10:45 06/29/18 17:43 06/29/18 20:00 Glucose (Fingerstick) 85 mg/dL (70-99) 87 mg/dL (70-99) 116 mg/dL (70-99) White Blood Count 7.6 x10^3/uL (4.0-11.0) Red Blood Count 3.03 x10^6/uL (4.30-5.70) Hemoglobin 9.3 g/dL (13.0-17.5) Hematocrit 28.0 % (39.0-53.0) Mean Corpuscular Volume 93 fL (79-100) Mean Corpuscular Hemoglobin 31 pg (25-35) Mean Corpuscular Hemoglobin Concent 33 g/dL (31-37) Red Cell Distribution Width 17.8 % (11.5-14.5) Platelet Count 276 x10^3/uL (140-400) Neutrophils (%) (Auto) 73 % (31-73) Lymphocytes (%) (Auto) 14 % (24-48) Monocytes (%) (Auto) 11 % (0-9) Eosinophils (%) (Auto) 2 % (0-3) Basophils (%) (Auto) 0 % (0-3) Neutrophils # (Auto) 5.6 x10^3uL (1.8-7.7) Lymphocytes # (Auto) 1.0 x10^3/uL (1.0-4.8) Monocytes # (Auto) 0.9 x10^3/uL (0.0-1.1) Eosinophils # (Auto) 0.1 x10^3/uL (0.0-0.7) Basophils # (Auto) 0.0 x10^3/uL (0.0-0.2) Prothrombin Time 13.6 SEC (11.7-14.0) Prothromb Time International Ratio 1.1 (0.8-1.1) Activated Partial Thromboplast Time 27 SEC (24-38) Sodium Level 141 mmol/L (136-145) Potassium Level 3.3 mmol/L (3.5-5.1) Chloride Level 105 mmol/L (98-107) Carbon Dioxide Level 24 mmol/L (21-32) Anion Gap 12 (6-14) Blood Urea Nitrogen 37 mg/dL (8-26) Creatinine 6.9 mg/dL (0.7-1.3) Estimated GFR (Cockcroft-Gault) 8.7 BUN/Creatinine Ratio 5 (6-20) Glucose Level 94 mg/dL (70-99) Calcium Level 7.1 mg/dL (8.5-10.1) Total Bilirubin 0.6 mg/dL (0.2-1.0) Aspartate Amino Transf (AST/SGOT) 31 U/L (15-37) Alanine Aminotransferase (ALT/SGPT) 38 U/L (16-63) Alkaline Phosphatase 81 U/L (46-116) Creatine Kinase 99 U/L (39-308) Creatine Kinase MB (Mass) 0.6 ng/mL (0.0-3.6) Creatine Kinase MB Relative Index 0.6 % (0-4) Troponin I Quantitative 0.056 ng/mL (0.000-0.055) Total Protein 5.6 g/dL (6.4-8.2) Albumin 2.1 g/dL (3.4-5.0) Albumin/Globulin Ratio 0.6 (1.0-1.7) Lipase 236 U/L (73-393) Test 06/29/18 23:04 06/30/18 08:45 06/30/18 09:00 06/30/18 12:55 Glucose (Fingerstick) 139 mg/dL (70-99) Erythrocyte Sedimentation Rate 24 (0-15) Triglycerides Level 91 mg/dL (0-150) Cholesterol Level 169 mg/dL (0-200) LDL Cholesterol, Calculated 103 mg/dL (0-100) VLDL Cholesterol, Calculated 18 mg/dL (0-40) Non-HDL Cholesterol Calculated 121 mg/dL (0-129) HDL Cholesterol 48 mg/dL (40-60) Cholesterol/HDL Ratio 3.5 O2 Saturation 98 % (92-99) Arterial Blood pH 7.51 (7.35-7.45) Arterial Blood pH (Temp corrected) 7.49 Arterial Blood pCO2 at Patient Temp 34 mmHg (35-46) Arterial Blood pCO2 (Temp correct) 36 mmHg Arterial Blood pO2 at Patient Temp 129 mmHg (75-108) Arterial Blood pO2 (Temp corrected) 137 mmHg Arterial Blood HCO3 26 mmol/L (21-28) Arterial Blood Base Excess 3 mmol/L (-3-3) FiO2 50 Urine Collection Type Unknown Urine Color Red Urine Clarity Cloudy Urine pH 7.5 Urine Specific [place] 1.025 Urine Protein >=300 mg/dL (NEG-TRACE) Urine Glucose (UA) 100 mg/dL (NEG) Urine Ketones (Stick) Trace mg/dL (NEG) Urine Blood Large (NEG) Urine Nitrite Positive (NEG) Urine Bilirubin Moderate (NEG) Urine Urobilinogen Dipstick 0.2 mg/dL (0.2 mg/dL) Urine Leukocyte Esterase Moderate (NEG) Urine RBC Tntc /HPF (0-2) Urine WBC 11-20 /HPF (0-4) Urine Bacteria Few /HPF (0-FEW) Urine Hyaline Casts Moderate /HPF Urine Mucus Mod /LPF Laboratory Tests Test 06/30/18 12:55 Urine Collection Type Unknown Urine Color Red Urine Clarity Cloudy Urine pH 7.5 Urine Specific [place] 1.025 Urine Protein >=300 mg/dL (NEG-TRACE) Urine Glucose (UA) 100 mg/dL (NEG) Urine Ketones (Stick) Trace mg/dL (NEG) Urine Blood Large (NEG) Urine Nitrite Positive (NEG) Urine Bilirubin Moderate (NEG) Urine Urobilinogen Dipstick 0.2 mg/dL (0.2 mg/dL) Urine Leukocyte Esterase Moderate (NEG) Urine RBC Tntc /HPF (0-2) Urine WBC 11-20 /HPF (0-4) Urine Bacteria Few /HPF (0-FEW) Urine Hyaline Casts Moderate /HPF Urine Mucus Mod /LPF Medications Active Scripts Medications Dose Route/Sig Max Daily Dose Days Date Category Clonidine Hcl 0.1 Mg Tablet 0.1 Mg PO BID 06/27/18 Rx [Pantoprazole] 40 MG Tablet.dr 40 Mg PO DAILYAC MDD 1 06/27/18 Rx Renvela (Sevelamer Carbonate) 800 Mg Tablet 800 Mg PO TIDWMEALS MDD 1 06/27/18 Rx Multivitamins (Multivitamin) 1 Each Tablet 1 Tab PO DAILY 06/23/18 Reported Vitamin B-12 (Cyanocobalamin (Vitamin B-12)) 1,000 Mcg Tablet 1 Tab PO DAILY 06/23/18 Reported Olanzapine 20 Mg Tablet 20 Mg PO QHS 06/23/18 Reported Cortef (Hydrocortisone) 20 Mg Tablet 20 Mg PO DAILY 06/22/18 Reported Impression . IMPRESSION: 1. Acute respiratory failure secondary to seizures. 2. Posterior reversible encephalopathy syndrome related to hypertension and renal insufficiency. 3. Encephalopathy. 4. End-stage renal disease. 5. Schizophrenia. 6. Hepatitis B positive antibodies. 7. Tobacco abuse. 8. Noncompliance. 9. PRES ON MRI BRAIN Plan . AC MODE NOT READY FOR TRIAL HD FOLLOW NEURO FOLLOW SEROLOGY FLORINA BROWN MD July 01, 2018 09:16
[2018-07-01 09:23] LABS: HEMATOCRIT 30.2 % (39.0-53.0); HEMOGLOBIN 10.1 g/dL (13.0-17.5); RED BLOOD COUNT 3.2 x10^6/uL (4.30-5.70); RED CELL DISTRIBUTION WIDTH 19.3 % (11.5-14.5)
[2018-07-01 09:26] LABS: CALCIUM 7.3 mg/dL (8.5-10.1); CREATININE 7.3 mg/dL (0.7-1.3); GFR 8.1; POTASSIUM 3.4 mmol/L (3.5-5.1)
[2018-07-01 09:27] LABS: PHENY 12.5 mcg/mL (10.0-20.0)
[2018-07-01 10:42] LABS: FIO2 ABG 50
--- NOTE | 2018-07-01 11:04 | NUR ---
FACULTY CO-SIGN I have reviewed the documentation by Endy Pendleton certified nursing assistant, [facility]: Addendum: 07/01/18 at 1105 by MIRANDA PINO RN Amended: Links added.
--- NOTE | 2018-07-01 11:36 | PDOC ---
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 Noncompliance History of Present Illness History of Present Illness Patient seen and examined in the ICU His mother is present He is currently on dialysis and on the ventilator Vent settings as follows assist-control/16/500/50% with 5 of PEEP He is critically ill Vitals Vitals Vital Signs Date Time Temp Pulse Resp B/P (MAP) Pulse Ox O2 Delivery O2 Flow Rate FiO2 07/01/18 11:00 76 16 138/85 (102) 99 Ventilator 07/01/18 09:00 99.0 99.0 Physical Exam General: Other (INTUBATED, sedated) Heart: Regular rate, Normal S1, Normal S2 Lungs: Wheezing Abdomen: Normal bowel sounds, Soft Extremities: No cyanosis Skin: No rashes (pale), Other (NUMEROUS TATTOOS) Labs LABS Laboratory Tests Test 06/30/18 12:55 07/01/18 08:00 07/01/18 08:50 Urine Collection Type Unknown Urine Color Red Urine Clarity Cloudy Urine pH 7.5 Urine Specific [place] 1.025 Urine Protein >=300 mg/dL (NEG-TRACE) Urine Glucose (UA) 100 mg/dL (NEG) Urine Ketones (Stick) Trace mg/dL (NEG) Urine Blood Large (NEG) Urine Nitrite Positive (NEG) Urine Bilirubin Moderate (NEG) Urine Urobilinogen Dipstick 0.2 mg/dL (0.2 mg/dL) Urine Leukocyte Esterase Moderate (NEG) Urine RBC Tntc /HPF (0-2) Urine WBC 11-20 /HPF (0-4) Urine Bacteria Few /HPF (0-FEW) Urine Hyaline Casts Moderate /HPF Urine Mucus Mod /LPF O2 Saturation 98 % (92-99) Arterial Blood pH 7.49 (7.35-7.45) Arterial Blood pCO2 at Patient Temp 34 mmHg (35-46) Arterial Blood pO2 at Patient Temp 114 mmHg (75-108) Arterial Blood HCO3 26 mmol/L (21-28) Arterial Blood Base Excess 3 mmol/L (-3-3) FiO2 50 White Blood Count 9.0 x10^3/uL (4.0-11.0) Red Blood Count 3.20 x10^6/uL (4.30-5.70) Hemoglobin 10.1 g/dL (13.0-17.5) Hematocrit 30.2 % (39.0-53.0) Mean Corpuscular Volume 95 fL (79-100) Mean Corpuscular Hemoglobin 32 pg (25-35) Mean Corpuscular Hemoglobin Concent 34 g/dL (31-37) Red Cell Distribution Width 19.3 % (11.5-14.5) Platelet Count 309 x10^3/uL (140-400) Sodium Level 139 mmol/L (136-145) Potassium Level 3.4 mmol/L (3.5-5.1) Chloride Level 102 mmol/L (98-107) Carbon Dioxide Level 25 mmol/L (21-32) Anion Gap 12 (6-14) Blood Urea Nitrogen 30 mg/dL (8-26) Creatinine 7.3 mg/dL (0.7-1.3) Estimated GFR (Cockcroft-Gault) 8.1 Glucose Level 146 mg/dL (70-99) Calcium Level 7.3 mg/dL (8.5-10.1) Phenytoin (Dilantin) Level 12.5 mcg/mL (10.0-20.0) Phenytoin Last Dose Date 06/30/18 Phenytoin Last Dose Time 2100 Review of Systems Review of Systems Unable to obtain Assessment and Plan Assessmemt and Plan Problems Medical Problems: (1) Hypertension Status: Acute Respiratory failure Seizures Goodpasture's disease newly diagnosed Newly started on dialysis Noncompliance Plan Vent weaning IV Keppra Pulmonary and neurology consults DVT prophylaxis Tuesday dialysis Nephrology consult Full code Frequent labs Prognosis guarded Discussed with his mom Total time 31 minutes Comment Review of Relevant I have reviewed the following items medardo (where applicable) has been applied. Labs Laboratory Tests Test 06/29/18 17:43 06/29/18 20:00 06/29/18 23:04 06/30/18 08:45 Glucose (Fingerstick) 87 mg/dL (70-99) 116 mg/dL (70-99) 139 mg/dL (70-99) Erythrocyte Sedimentation Rate 24 (0-15) Triglycerides Level 91 mg/dL (0-150) Cholesterol Level 169 mg/dL (0-200) LDL Cholesterol, Calculated 103 mg/dL (0-100) VLDL Cholesterol, Calculated 18 mg/dL (0-40) Non-HDL Cholesterol Calculated 121 mg/dL (0-129) HDL Cholesterol 48 mg/dL (40-60) Cholesterol/HDL Ratio 3.5 Test 06/30/18 09:00 06/30/18 12:55 07/01/18 08:00 07/01/18 08:50 O2 Saturation 98 % (92-99) 98 % (92-99) Arterial Blood pH 7.51 (7.35-7.45) 7.49 (7.35-7.45) Arterial Blood pH (Temp corrected) 7.49 Arterial Blood pCO2 at Patient Temp 34 mmHg (35-46) 34 mmHg (35-46) Arterial Blood pCO2 (Temp correct) 36 mmHg Arterial Blood pO2 at Patient Temp 129 mmHg (75-108) 114 mmHg (75-108) Arterial Blood pO2 (Temp corrected) 137 mmHg Arterial Blood HCO3 26 mmol/L (21-28) 26 mmol/L (21-28) Arterial Blood Base Excess 3 mmol/L (-3-3) 3 mmol/L (-3-3) FiO2 50 50 Urine Collection Type Unknown Urine Color Red Urine Clarity Cloudy Urine pH 7.5 Urine Specific [place] 1.025 Urine Protein >=300 mg/dL (NEG-TRACE) Urine Glucose (UA) 100 mg/dL (NEG) Urine Ketones (Stick) Trace mg/dL (NEG) Urine Blood Large (NEG) Urine Nitrite Positive (NEG) Urine Bilirubin Moderate (NEG) Urine Urobilinogen Dipstick 0.2 mg/dL (0.2 mg/dL) Urine Leukocyte Esterase Moderate (NEG) Urine RBC Tntc /HPF (0-2) Urine WBC 11-20 /HPF (0-4) Urine Bacteria Few /HPF (0-FEW) Urine Hyaline Casts Moderate /HPF Urine Mucus Mod /LPF White Blood Count 9.0 x10^3/uL (4.0-11.0) Red Blood Count 3.20 x10^6/uL (4.30-5.70) Hemoglobin 10.1 g/dL (13.0-17.5) Hematocrit 30.2 % (39.0-53.0) Mean Corpuscular Volume 95 fL (79-100) Mean Corpuscular Hemoglobin 32 pg (25-35) Mean Corpuscular Hemoglobin Concent 34 g/dL (31-37) Red Cell Distribution Width 19.3 % (11.5-14.5) Platelet Count 309 x10^3/uL (140-400) Sodium Level 139 mmol/L (136-145) Potassium Level 3.4 mmol/L (3.5-5.1) Chloride Level 102 mmol/L (98-107) Carbon Dioxide Level 25 mmol/L (21-32) Anion Gap 12 (6-14) Blood Urea Nitrogen 30 mg/dL (8-26) Creatinine 7.3 mg/dL (0.7-1.3) Estimated GFR (Cockcroft-Gault) 8.1 Glucose Level 146 mg/dL (70-99) Calcium Level 7.3 mg/dL (8.5-10.1) Phenytoin (Dilantin) Level 12.5 mcg/mL (10.0-20.0) Phenytoin Last Dose Date 06/30/18 Phenytoin Last Dose Time 2100 Laboratory Tests Test 06/30/18 12:55 07/01/18 08:00 07/01/18 08:50 Urine Collection Type Unknown Urine Color Red Urine Clarity Cloudy Urine pH 7.5 Urine Specific [place] 1.025 Urine Protein >=300 mg/dL (NEG-TRACE) Urine Glucose (UA) 100 mg/dL (NEG) Urine Ketones (Stick) Trace mg/dL (NEG) Urine Blood Large (NEG) Urine Nitrite Positive (NEG) Urine Bilirubin Moderate (NEG) Urine Urobilinogen Dipstick 0.2 mg/dL (0.2 mg/dL) Urine Leukocyte Esterase Moderate (NEG) Urine RBC Tntc /HPF (0-2) Urine WBC 11-20 /HPF (0-4) Urine Bacteria Few /HPF (0-FEW) Urine Hyaline Casts Moderate /HPF Urine Mucus Mod /LPF O2 Saturation 98 % (92-99) Arterial Blood pH 7.49 (7.35-7.45) Arterial Blood pCO2 at Patient Temp 34 mmHg (35-46) Arterial Blood pO2 at Patient Temp 114 mmHg (75-108) Arterial Blood HCO3 26 mmol/L (21-28) Arterial Blood Base Excess 3 mmol/L (-3-3) FiO2 50 White Blood Count 9.0 x10^3/uL (4.0-11.0) Red Blood Count 3.20 x10^6/uL (4.30-5.70) Hemoglobin 10.1 g/dL (13.0-17.5) Hematocrit 30.2 % (39.0-53.0) Mean Corpuscular Volume 95 fL (79-100) Mean Corpuscular Hemoglobin 32 pg (25-35) Mean Corpuscular Hemoglobin Concent 34 g/dL (31-37) Red Cell Distribution Width 19.3 % (11.5-14.5) Platelet Count 309 x10^3/uL (140-400) Sodium Level 139 mmol/L (136-145) Potassium Level 3.4 mmol/L (3.5-5.1) Chloride Level 102 mmol/L (98-107) Carbon Dioxide Level 25 mmol/L (21-32) Anion Gap 12 (6-14) Blood Urea Nitrogen 30 mg/dL (8-26) Creatinine 7.3 mg/dL (0.7-1.3) Estimated GFR (Cockcroft-Gault) 8.1 Glucose Level 146 mg/dL (70-99) Calcium Level 7.3 mg/dL (8.5-10.1) Phenytoin (Dilantin) Level 12.5 mcg/mL (10.0-20.0) Phenytoin Last Dose Date 06/30/18 Phenytoin Last Dose Time 2100 Medications Current Medications Morphine Sulfate (Morphine Sulfate) 4 mg 1X ONCE IV Last administered on 06/29/18at 11:40; Start 06/29/18 at 11:30; Stop 06/29/18 at 11:31; Status DC Ondansetron HCl (Zofran) 4 mg 1X ONCE IV Last administered on 06/29/18at 11:44; Start 06/29/18 at 11:45; Stop 06/29/18 at 11:46; Status DC Ondansetron HCl (Zofran) 4 mg STK-MED ONCE .ROUTE ; Start 06/29/18 at 11:43; Stop 06/29/18 at 11:44; Status DC Ondansetron HCl (Zofran) 4 mg PRN Q8HRS PRN IV NAUSEA/VOMITING; Start 06/29/18 at 12:15; Stop 06/30/18 at 12:14; Status DC Morphine Sulfate (Morphine Sulfate) 4 mg 1X ONCE IV Last administered on 06/29/18at 13:25; Start 06/29/18 at 13:30; Stop 06/29/18 at 13:31; Status DC Clonidine HCl (Catapres) 0.1 mg BID PO Last administered on 07/01/18 08:28; Start 06/29/18 at 21:00 Cyanocobalamin (Vitamin B-12) 1,000 mcg DAILY PO Last administered on 07/01/18 08:27; Start 06/29/18 at 16:30 Sevelamer Carbonate (Renvela) 800 mg TIDWMEALS PO Last administered on 07/01/18 08:28; Start 06/29/18 at 17:00 Hydrocortisone (Cortef) 20 mg DAILYWBKFT PO Last administered on 07/01/18 08:27; Start 06/29/18 at 16:30 Multivitamins (Thera M Plus) 1 tab DAILY PO Last administered on 07/01/18 08:28; Start 06/29/18 at 16:30 Olanzapine (ZyPREXA) 20 mg QHS PO Last administered on 06/30/18 21:40; Start 06/29/18 at 21:00 Pantoprazole Sodium (Protonix) 40 mg DAILYAC PO Last administered on 06/29/18 18:31; Start 06/29/18 at 16:30; Stop 07/01/18 at 07:33; Status DC Heparin Sodium (Porcine) (Heparin Sodium) 5,000 unit Q8HRS SQ Last administered on 07/01/18 05:58; Start 06/29/18 at 22:00 Acetaminophen (Tylenol) 650 mg 1X ONCE PO Last administered on 06/29/18 18:32; Start 06/29/18 at 16:30; Stop 06/29/18 at 16:31; Status DC Oxycodone/ Acetaminophen (Percocet 5/325) 1 tab PRN Q4HRS PRN PO PAIN; Start 06/29/18 at 20:00 Iohexol (Omnipaque 350 Mg/ml) 75 ml 1X ONCE IV Last administered on 06/29/18 21:01; Start 06/29/18 at 21:00; Stop 06/29/18 at 21:03; Status DC Labetalol HCl (Normodyne Iv Push) 10 mg PRN Q10MIN PRN IVP HYPERTENSION, SEE COMMENTS; Start 06/29/18 at 21:15 Acetaminophen (Tylenol) 650 mg PRN Q6HRS PRN PO TEMP > 100.4F; Start 06/29/18 at 21:15 Acetaminophen (Tylenol Supp) 650 mg PRN Q4HRS PRN VT TEMP > 100.4F; Start 06/29/18 at 21:15 Aspirin (Ecotrin) 325 mg DAILYWBKFT PO Last administered on 07/01/18at 08:28; Start 06/30/18 at 08:00 Aspirin (Aspirin Rectal Supp) 300 mg PRN DAILY PRN VT IF UNABLE TO TAKE PO; Start 06/29/18 at 21:15 Morphine Sulfate (Morphine Sulfate) 2 mg PRN Q2HR PRN IV SEVERE PAIN Last administered on 06/29/18at 22:37; Start 06/29/18 at 22:30 Levetiracetam 500 mg/Dextrose 105 ml @ 420 mls/hr Q12HR IV Last administered on 07/01/18at 08:27; Start 06/30/18 at 00:00 Levetiracetam 1000 mg/Dextrose 110 ml @ 440 mls/hr 1X ONCE IV Last administered on 06/30/18at 02:25; Start 06/30/18 at 02:30; Stop 06/30/18 at 02:44; Status DC Lorazepam (Ativan) 1 mg PRN Q2HRS PRN IV TREMORS; Start 06/30/18 at 02:00 Fosphenytoin Sodium 1390 mg/ Sodium Chloride 77.8 ml @ 311.2 mls/ hr 1X ONCE IV Last administered on 06/30/18at 04:44; Start 06/30/18 at 05:00; Stop 06/30/18 at 05:14; Status DC Propofol 100 ml @ As Directed STK-MED ONCE IV ; Start 06/30/18 at 05:58; Stop 06/30/18 at 05:59; Status DC Succinylcholine Chloride (Anectine) 200 mg STK-MED ONCE .ROUTE ; Start 06/30/18 at 05:59; Stop 06/30/18 at 06:00; Status DC Propofol 100 ml @ 1.39 mls/hr 1X ONCE IV Last administered on 06/30/18at 06:30; Start 06/30/18 at 06:30; Stop 07/03/18 at 06:26 Succinylcholine Chloride (Anectine) 200 mg 1X ONCE IV Last administered on 06/30/18at 06:21; Start 06/30/18 at 06:30; Stop 06/30/18 at 06:31; Status DC Propofol 100 ml @ 0 mls/hr CONT PRN IV SEE I/O RECORD Last administered on 06/30/18at 22:34; Start 06/30/18 at 06:30 Fentanyl Citrate 30 ml @ 0 mls/hr CONT PRN IV SEE PROTOCOL; Start 06/30/18 at 06:30 Midazolam HCl 100 ml @ 0 mls/hr CONT PRN IV SEE PROTOCOL; Start 06/30/18 at 06:30 Fosphenytoin Sodium (Cerebyx) 100 mg Q8HRS IV Last administered on 07/01/18at 06:08; Start 06/30/18 at 14:00 Hydrocortisone Sodium Succinate (Solu-CORTEF) 100 mg Q8HRS IV Last administered on 07/01/18at 06:01; Start 06/30/18 at 14:00 Lansoprazole (Prevacid) 30 mg DAILYAC NG Last administered on 07/01/18at 08:27; Start 07/01/18 at 07:30 Sodium Chloride 1,000 ml @ 1,000 mls/hr Q1H PRN IV hypotension; Start 07/01/18 at 08:00; Stop 07/01/18 at 18:00 Albumin Human 200 ml @ 200 mls/hr 1X PRN PRN IV Hypotension; Start 07/01/18 at 08:00; Stop 07/01/18 at 18:00 Acetaminophen (Tylenol) 500 mg 1X PRN PRN PO MILD PAIN / TEMP; Start 07/01/18 at 07:45; Stop 07/01/18 at 18:00 Diphenhydramine HCl (Benadryl) 25 mg 1X PRN PRN IV ITCHING; Start 07/01/18 at 07:45; Stop 07/01/18 at 18:00 Diphenhydramine HCl (Benadryl) 25 mg 1X PRN PRN IV ITCHING; Start 07/01/18 at 07:45; Stop 07/01/18 at 18:00 Sodium Chloride (Normal Saline Flush) 10 ml 1X PRN PRN IV AP catheter pack; Start 07/01/18 at 07:45; Stop 07/01/18 at 18:00 Sodium Chloride (Normal Saline Flush) 10 ml 1X PRN PRN IV [employer] catheter pack; Start 07/01/18 at 07:45; Stop 07/01/18 at 18:00 Sodium Chloride 1,000 ml @ 400 mls/hr Q2H30M PRN IV PATENCY; Start 07/01/18 at 08:00; Stop 07/01/18 at 18:00 Info (PHARMACY MONITORING -- do not chart) 1 each PRN DAILY PRN MC SEE COMMENTS; Start 07/01/18 at 08:00 Active Scripts Active Clonidine Hcl 0.1 Mg Tablet 0.1 Mg PO BID [Pantoprazole] 40 MG Tablet.dr 40 Mg PO DAILYAC MDD 1 Renvela (Sevelamer Carbonate) 800 Mg Tablet 800 Mg PO TIDWMEALS MDD 1 Reported Multivitamins (Multivitamin) 1 Each Tablet 1 Tab PO DAILY Vitamin B-12 (Cyanocobalamin (Vitamin B-12)) 1,000 Mcg Tablet 1 Tab PO DAILY Olanzapine 20 Mg Tablet 20 Mg PO QHS Cortef (Hydrocortisone) 20 Mg Tablet 20 Mg PO DAILY Vitals/I & O Vital Sign - Last 24 Hours 06/30/18 06/30/18 06/30/18 06/30/18 12:00 12:00 13:00 13:00 Temp 100.7 100.7 Pulse 96 108 Resp 16 18 B/P (MAP) 154/89 (110) 156/93 (114) Pulse Ox 97 97 96 O2 Delivery Room Air Mechanical Ventilator Room Air Ventilator 06/30/18 06/30/18 06/30/18 06/30/18 15:00 16:00 16:00 16:42 Temp 98.6 98.6 Pulse 84 82 Resp 16 16 B/P (MAP) 119/82 (94) 130/86 (101) Pulse Ox 98 99 97 O2 Delivery Room Air Room Air Mechanical Ventilator Ventilator 06/30/18 06/30/18 06/30/18 06/30/18 17:00 18:00 19:00 19:56 Pulse 82 81 80 Resp 16 16 16 B/P (MAP) 132/90 (104) 116/77 (90) 139/86 (103) Pulse Ox 99 99 99 97 O2 Delivery Room Air Room Air Room Air Ventilator 06/30/18 06/30/18 06/30/18 06/30/18 20:00 20:00 21:00 21:00 Pulse 86 82 78 Resp 16 16 B/P (MAP) 141/86 (104) 110/70 110/70 (83) Pulse Ox 99 99 O2 Delivery Room Air Mechanical Ventilator Room Air 06/30/18 06/30/18 06/30/18 06/30/18 22:00 23:00 23:52 23:59 Pulse 81 93 Resp 16 16 B/P (MAP) 141/94 (110) 128/83 (98) Pulse Ox 100 100 98 O2 Delivery Room Air Room Air Ventilator Mechanical Ventilator 07/01/18 07/01/18 07/01/18 07/01/18 00:31 01:00 01:55 02:00 Temp 98.2 98.2 Pulse 91 77 74 Resp 16 16 14 B/P (MAP) 133/88 (103) 112/72 (85) 104/69 (81) Pulse Ox 100 97 98 97 O2 Delivery Room Air Room Air Ventilator Room Air 07/01/18 07/01/18 07/01/18 07/01/18 03:00 03:16 04:00 04:00 Temp 98.3 98.3 Pulse 73 79 Resp 14 13 B/P (MAP) 113/75 (88) 117/84 (95) Pulse Ox 97 98 100 O2 Delivery Room Air Ventilator Mechanical Ventilator Room Air 07/01/18 07/01/18 07/01/18 07/01/18 05:00 05:06 06:10 07:00 Pulse 84 84 82 Resp 16 16 15 B/P (MAP) 117/81 (93) 118/81 (93) 124/82 (96) Pulse Ox 100 98 100 100 O2 Delivery Room Air Ventilator Room Air Ventilator 07/01/18 07/01/18 07/01/18 07/01/18 07:48 08:00 08:00 08:00 Pulse 81 Resp 16 B/P (MAP) 123/86 (98) Pulse Ox 100 100 O2 Delivery Ventilator Ventilator Mechanical Ventilator Mechanical Ventilator 07/01/18 07/01/18 07/01/18 07/01/18 08:28 09:00 09:30 10:00 Temp 99.0 99.0 Pulse 94 84 86 Resp 15 15 B/P (MAP) 124/87 141/86 (104) 119/82 (94) Pulse Ox 99 100 99 O2 Delivery Ventilator Ventilator Ventilator 07/01/18 11:00 Pulse 76 Resp 16 B/P (MAP) 138/85 (102) Pulse Ox 99 O2 Delivery Ventilator Intake and Output 06/30/18 06/30/18 07/01/18 15:00 23:00 07:00 Intake Total 205 ml 175 ml 207 ml Output Total 0 ml Balance 205 ml 175 ml 207 ml SILVANO HARDY III DO July 01, 2018 11:35
--- NOTE | 2018-07-01 12:26 | PDOC ---
SUBJECTIVE ROS Intubated, sedated OBJECTIVE Vital Signs Vital Signs Date Time Temp Pulse Resp B/P (MAP) Pulse Ox O2 Delivery O2 Flow Rate FiO2 07/01/18 11:43 100 Ventilator 07/01/18 11:00 76 16 138/85 (102) 07/01/18 09:00 99.0 99.0 I & 0 Intake and Output 07/01/18 07:00 Intake Total 587 ml Output Total 0 ml Balance 587 ml IV Total 430 ml Tube Feeding 157 ml Output Urine Total 0 ml # Voids 155 PHYSICAL EXAM Physical Exam General:Intubated, sedated HEENT:Intubated Neck: Supple Lungs- CTA bilat CV RRR Ext- No LE edema Gu- has Pete Neurological:Intubated sedated DIAGNOSIS/ASSESSMENT Assessment & Plan New ESRD - S/P Renal Bx with Dx of [place] -Anti GBM - Earlier this week Seen on HD, tolerating well Continue as ordered, Alec burr bench hand, Will continue TTS schedule Good [place]'s syndrome- post renal Bx , results obtained earlier this week No Obvious Lung involvement Anti GBM and ANCA pending Malignant HTN - Controlled now Seizures - per neurology Posterior reversible encephalopathy syndrome,(PRES) Neurology following Serologies pending to rule out associated Vasculitis (not reported on renal Bx) Anemia - Hgb improved Monitor HEP B- Positive Ab, repeat negative [place]'s - On Hydrocortisone Per primary COMMENT/RELEVANT DATA Meds Current Medications Medications (Trade) Dose Ordered Sig/Essence Start Time Stop Time Status Last Admin Dose Admin Acetaminophen (Tylenol Supp) 650 mg PRN Q4HRS PRN 06/29/18 21:15 Acetaminophen (Tylenol) 500 mg 1X PRN PRN 07/01/18 07:45 07/01/18 18:00 Albumin Human 200 ml @ 200 mls/hr 1X PRN PRN 07/01/18 08:00 07/01/18 18:00 Aspirin (Aspirin Rectal Supp) 300 mg PRN DAILY PRN 06/29/18 21:15 Aspirin (Ecotrin) 325 mg DAILYWBKFT 06/30/18 08:00 07/01/18 08:28 325 MG Clonidine HCl (Catapres) 0.1 mg BID 06/29/18 21:00 07/01/18 08:28 0.1 MG Cyanocobalamin (Vitamin B-12) 1,000 mcg DAILY 06/29/18 16:30 07/01/18 08:27 1,000 MCG Diphenhydramine HCl (Benadryl) 25 mg 1X PRN PRN 07/01/18 07:45 07/01/18 18:00 Fentanyl Citrate 30 ml @ 0 mls/hr CONT PRN 06/30/18 06:30 Fosphenytoin Sodium (Cerebyx) 100 mg Q8HRS 06/30/18 14:00 07/01/18 06:08 100 MG Fosphenytoin Sodium 1390 mg/ Sodium Chloride 77.8 ml @ 311.2 mls/ hr 1X ONCE 06/30/18 05:00 06/30/18 05:14 DC 06/30/18 04:44 311.2 MLS/HR Heparin Sodium (Porcine) (Heparin Sodium) 5,000 unit Q8HRS 06/29/18 22:00 07/01/18 05:58 5,000 UNIT Hydrocortisone (Cortef) 20 mg DAILYWBKFT 06/29/18 16:30 07/01/18 08:27 20 MG Hydrocortisone Sodium Succinate (Solu-CORTEF) 100 mg Q8HRS 06/30/18 14:00 07/01/18 06:01 100 MG Info (PHARMACY MONITORING -- do not chart) 1 each PRN DAILY PRN 07/01/18 08:00 Iohexol (Omnipaque 350 Mg/ml) 75 ml 1X ONCE 06/29/18 21:00 06/29/18 21:03 DC 06/29/18 21:01 75 ML Labetalol HCl (Normodyne Iv Push) 10 mg PRN Q10MIN PRN 06/29/18 21:15 Lansoprazole (Prevacid) 30 mg DAILYAC 07/01/18 07:30 07/01/18 08:27 30 MG Levetiracetam 1000 mg/Dextrose 110 ml @ 440 mls/hr 1X ONCE 06/30/18 02:30 06/30/18 02:44 DC 06/30/18 02:25 440 MLS/HR Levetiracetam 500 mg/Dextrose 105 ml @ 420 mls/hr Q12HR 06/30/18 00:00 07/01/18 08:27 420 MLS/HR Lorazepam (Ativan) 1 mg PRN Q2HRS PRN 06/30/18 02:00 Midazolam HCl 100 ml @ 0 mls/hr CONT PRN 06/30/18 06:30 Morphine Sulfate (Morphine Sulfate) 2 mg PRN Q2HR PRN 06/29/18 22:30 06/29/18 22:37 2 MG Multivitamins (Thera M Plus) 1 tab DAILY 06/29/18 16:30 07/01/18 08:28 1 TAB Olanzapine (ZyPREXA) 20 mg QHS 06/29/18 21:00 06/30/18 21:40 20 MG Ondansetron HCl (Zofran) 4 mg PRN Q8HRS PRN 06/29/18 12:15 06/30/18 12:14 DC Oxycodone/ Acetaminophen (Percocet 5/325) 1 tab PRN Q4HRS PRN 06/29/18 20:00 Pantoprazole Sodium (Protonix) 40 mg DAILYAC 06/29/18 16:30 07/01/18 07:33 DC 06/29/18 18:31 40 MG Propofol 100 ml @ 0 mls/hr CONT PRN 06/30/18 06:30 06/30/18 22:34 8.2 MLS/HR Sevelamer Carbonate (Renvela) 800 mg TIDWMEALS 06/29/18 17:00 07/01/18 08:28 800 MG Sodium Chloride 1,000 ml @ 400 mls/hr Q2H30M PRN 07/01/18 08:00 07/01/18 18:00 Sodium Chloride (Normal Saline Flush) 10 ml 1X PRN PRN 07/01/18 07:45 07/01/18 18:00 Succinylcholine Chloride (Anectine) 200 mg 1X ONCE 06/30/18 06:30 06/30/18 06:31 DC 06/30/18 06:21 200 MG Lab Laboratory Tests Test 06/30/18 12:55 07/01/18 08:00 07/01/18 08:50 Urine Collection Type Unknown Urine Color Red Urine Clarity Cloudy Urine pH 7.5 Urine Specific [place] 1.025 Urine Protein >=300 mg/dL (NEG-TRACE) Urine Glucose (UA) 100 mg/dL (NEG) Urine Ketones (Stick) Trace mg/dL (NEG) Urine Blood Large (NEG) Urine Nitrite Positive (NEG) Urine Bilirubin Moderate (NEG) Urine Urobilinogen Dipstick 0.2 mg/dL (0.2 mg/dL) Urine Leukocyte Esterase Moderate (NEG) Urine RBC Tntc /HPF (0-2) Urine WBC 11-20 /HPF (0-4) Urine Bacteria Few /HPF (0-FEW) Urine Hyaline Casts Moderate /HPF Urine Mucus Mod /LPF O2 Saturation 98 % (92-99) Arterial Blood pH 7.49 (7.35-7.45) Arterial Blood pCO2 at Patient Temp 34 mmHg (35-46) Arterial Blood pO2 at Patient Temp 114 mmHg (75-108) Arterial Blood HCO3 26 mmol/L (21-28) Arterial Blood Base Excess 3 mmol/L (-3-3) FiO2 50 White Blood Count 9.0 x10^3/uL (4.0-11.0) Red Blood Count 3.20 x10^6/uL (4.30-5.70) Hemoglobin 10.1 g/dL (13.0-17.5) Hematocrit 30.2 % (39.0-53.0) Mean Corpuscular Volume 95 fL (79-100) Mean Corpuscular Hemoglobin 32 pg (25-35) Mean Corpuscular Hemoglobin Concent 34 g/dL (31-37) Red Cell Distribution Width 19.3 % (11.5-14.5) Platelet Count 309 x10^3/uL (140-400) Sodium Level 139 mmol/L (136-145) Potassium Level 3.4 mmol/L (3.5-5.1) Chloride Level 102 mmol/L (98-107) Carbon Dioxide Level 25 mmol/L (21-32) Anion Gap 12 (6-14) Blood Urea Nitrogen 30 mg/dL (8-26) Creatinine 7.3 mg/dL (0.7-1.3) Estimated GFR (Cockcroft-Gault) 8.1 Glucose Level 146 mg/dL (70-99) Calcium Level 7.3 mg/dL (8.5-10.1) Phenytoin (Dilantin) Level 12.5 mcg/mL (10.0-20.0) Phenytoin Last Dose Date 06/30/18 Phenytoin Last Dose Time 2100 Results All relevant outside records, renal labs, imaging studies, telemetry/EKG's were reviewed. EDEL ADKINS MD July 01, 2018 12:26
--- NOTE | 2018-07-01 13:57 | RAD ---
AP portable chest radiograph 07/01/2018 Clinical History: Respiratory failure. An AP erect portable digital radiograph of the chest was obtained. Comparison study is dated 06/30/2018. The ET tube, NG tube and right internal jugular large bore central venous catheter are unchanged position. The cardiac silhouette is borderline enlarged. The thoracic aorta is mildly tortuous. Left lower lobe atelectasis and or infiltrate with small left pleural effusion is again seen. There is been interval improvement in the bilateral perihilar infiltrates consistent with improving pulmonary edema. No pneumothorax is noted. The osseous structures are unchanged. Impression: 1. Interval improvement in the bilateral perihilar infiltrates. 2. Left lower lobe atelectasis and or infiltrate with small left pleural effusion, unchanged. Electronically signed by: Jaime Phillips MD (07/01/2018 1:54 PM) [facility]
[2018-07-01] MEDS: PROPOFOL 100 ML IV PRN ×2 (17:33→22:41)
--- NOTE | 2018-07-01 18:14 | PDOC ---
PROGRESS NOTES Assessment 1. Posterior reversible encephalopathy syndrome noted on CAT scan and MRI brain. The MRI revealed tiny petechial hemorrhage which was not seen on the CAT scan. He remains intubated and sedated. He is able to awaken and follow some simple commands. 2. Hypertensive emergency for which she is maintained on medications to try to better control the blood pressure. The hypertension in combination with the acute renal failure likely contributed to the fulminant PRES syndrome. 3. Seizures for which he is on fosphenytoin and levetiracetam. He is not clinically having further seizure. 4. He has acute renal failure and is receiving dialysis. 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 Plan 1. He will continue with intubation and sedation until stable. Pulmonary service is following and will manage. 2. Blood pressures will continue to require close monitoring in the intensive care unit. 3. We will continue intravenous levetiracetam and fosphenytoin for seizure prevention. 4. He will continue with hemodialysis for the acute renal failure. We will need the social service to help sort out what support is available for him to receive dialysis upon discharge. Subjective Nonverbal, intubated and sedated Objective Vital Signs Date Time Temp Pulse Resp B/P (MAP) Pulse Ox O2 Delivery O2 Flow Rate FiO2 07/01/18 17:00 92 16 119/81 (94) 97 Ventilator 07/01/18 16:00 98.4 98.4 Intake and Output 07/01/18 07:00 Intake Total 587 ml Output Total 0 ml Balance 587 ml IV Total 430 ml Tube Feeding 157 ml Output Urine Total 0 ml # Voids 155 PHYSICAL EXAM He was intubated, ventilated and sedated. His eyes were open and he was able to look at the examiner. Pupils were 3 mm and reacted. He didn't blink to visual threat and loud clap. He could not protrude his tongue. Muscle bulk was symmetric. Tone was flaccid in the arms. He did not move his arms or fingers. He was able to wiggle his toes. He did not perceive sensation very well in the arms or legs. When I did nailbed pressure he would shake his head no but he could not feel it. Review of Relevant I have reviewed the following items medardo (where applicable) has been applied. Labs Laboratory Tests Test 06/29/18 20:00 06/29/18 23:04 06/30/18 08:45 06/30/18 09:00 Glucose (Fingerstick) 116 mg/dL (70-99) 139 mg/dL (70-99) Erythrocyte Sedimentation Rate 24 (0-15) Triglycerides Level 91 mg/dL (0-150) Cholesterol Level 169 mg/dL (0-200) LDL Cholesterol, Calculated 103 mg/dL (0-100) VLDL Cholesterol, Calculated 18 mg/dL (0-40) Non-HDL Cholesterol Calculated 121 mg/dL (0-129) HDL Cholesterol 48 mg/dL (40-60) Cholesterol/HDL Ratio 3.5 O2 Saturation 98 % (92-99) Arterial Blood pH 7.51 (7.35-7.45) Arterial Blood pH (Temp corrected) 7.49 Arterial Blood pCO2 at Patient Temp 34 mmHg (35-46) Arterial Blood pCO2 (Temp correct) 36 mmHg Arterial Blood pO2 at Patient Temp 129 mmHg (75-108) Arterial Blood pO2 (Temp corrected) 137 mmHg Arterial Blood HCO3 26 mmol/L (21-28) Arterial Blood Base Excess 3 mmol/L (-3-3) FiO2 50 Test 06/30/18 12:55 07/01/18 08:00 07/01/18 08:50 Urine Collection Type Unknown Urine Color Red Urine Clarity Cloudy Urine pH 7.5 Urine Specific [place] 1.025 Urine Protein >=300 mg/dL (NEG-TRACE) Urine Glucose (UA) 100 mg/dL (NEG) Urine Ketones (Stick) Trace mg/dL (NEG) Urine Blood Large (NEG) Urine Nitrite Positive (NEG) Urine Bilirubin Moderate (NEG) Urine Urobilinogen Dipstick 0.2 mg/dL (0.2 mg/dL) Urine Leukocyte Esterase Moderate (NEG) Urine RBC Tntc /HPF (0-2) Urine WBC 11-20 /HPF (0-4) Urine Bacteria Few /HPF (0-FEW) Urine Hyaline Casts Moderate /HPF Urine Mucus Mod /LPF O2 Saturation 98 % (92-99) Arterial Blood pH 7.49 (7.35-7.45) Arterial Blood pCO2 at Patient Temp 34 mmHg (35-46) Arterial Blood pO2 at Patient Temp 114 mmHg (75-108) Arterial Blood HCO3 26 mmol/L (21-28) Arterial Blood Base Excess 3 mmol/L (-3-3) FiO2 50 White Blood Count 9.0 x10^3/uL (4.0-11.0) Red Blood Count 3.20 x10^6/uL (4.30-5.70) Hemoglobin 10.1 g/dL (13.0-17.5) Hematocrit 30.2 % (39.0-53.0) Mean Corpuscular Volume 95 fL (79-100) Mean Corpuscular Hemoglobin 32 pg (25-35) Mean Corpuscular Hemoglobin Concent 34 g/dL (31-37) Red Cell Distribution Width 19.3 % (11.5-14.5) Platelet Count 309 x10^3/uL (140-400) Sodium Level 139 mmol/L (136-145) Potassium Level 3.4 mmol/L (3.5-5.1) Chloride Level 102 mmol/L (98-107) Carbon Dioxide Level 25 mmol/L (21-32) Anion Gap 12 (6-14) Blood Urea Nitrogen 30 mg/dL (8-26) Creatinine 7.3 mg/dL (0.7-1.3) Estimated GFR (Cockcroft-Gault) 8.1 Glucose Level 146 mg/dL (70-99) Calcium Level 7.3 mg/dL (8.5-10.1) Phenytoin (Dilantin) Level 12.5 mcg/mL (10.0-20.0) Phenytoin Last Dose Date 06/30/18 Phenytoin Last Dose Time 2100 Laboratory Tests Test 07/01/18 08:00 07/01/18 08:50 O2 Saturation 98 % (92-99) Arterial Blood pH 7.49 (7.35-7.45) Arterial Blood pCO2 at Patient Temp 34 mmHg (35-46) Arterial Blood pO2 at Patient Temp 114 mmHg (75-108) Arterial Blood HCO3 26 mmol/L (21-28) Arterial Blood Base Excess 3 mmol/L (-3-3) FiO2 50 White Blood Count 9.0 x10^3/uL (4.0-11.0) Red Blood Count 3.20 x10^6/uL (4.30-5.70) Hemoglobin 10.1 g/dL (13.0-17.5) Hematocrit 30.2 % (39.0-53.0) Mean Corpuscular Volume 95 fL (79-100) Mean Corpuscular Hemoglobin 32 pg (25-35) Mean Corpuscular Hemoglobin Concent 34 g/dL (31-37) Red Cell Distribution Width 19.3 % (11.5-14.5) Platelet Count 309 x10^3/uL (140-400) Sodium Level 139 mmol/L (136-145) Potassium Level 3.4 mmol/L (3.5-5.1) Chloride Level 102 mmol/L (98-107) Carbon Dioxide Level 25 mmol/L (21-32) Anion Gap 12 (6-14) Blood Urea Nitrogen 30 mg/dL (8-26) Creatinine 7.3 mg/dL (0.7-1.3) Estimated GFR (Cockcroft-Gault) 8.1 Glucose Level 146 mg/dL (70-99) Calcium Level 7.3 mg/dL (8.5-10.1) Phenytoin (Dilantin) Level 12.5 mcg/mL (10.0-20.0) Phenytoin Last Dose Date 06/30/18 Phenytoin Last Dose Time 2100 Medications Current Medications Morphine Sulfate (Morphine Sulfate) 4 mg 1X ONCE IV Last administered on 06/29/18at 11:40; Start 06/29/18 at 11:30; Stop 06/29/18 at 11:31; Status DC Ondansetron HCl (Zofran) 4 mg 1X ONCE IV Last administered on 06/29/18at 11:44; Start 06/29/18 at 11:45; Stop 06/29/18 at 11:46; Status DC Ondansetron HCl (Zofran) 4 mg STK-MED ONCE .ROUTE ; Start 06/29/18 at 11:43; Stop 06/29/18 at 11:44; Status DC Ondansetron HCl (Zofran) 4 mg PRN Q8HRS PRN IV NAUSEA/VOMITING; Start 06/29/18 at 12:15; Stop 06/30/18 at 12:14; Status DC Morphine Sulfate (Morphine Sulfate) 4 mg 1X ONCE IV Last administered on 06/29/18at 13:25; Start 06/29/18 at 13:30; Stop 06/29/18 at 13:31; Status DC Clonidine HCl (Catapres) 0.1 mg BID PO Last administered on 07/01/18at 08:28; Start 06/29/18 at 21:00 Cyanocobalamin (Vitamin B-12) 1,000 mcg DAILY PO Last administered on 07/01/18 08:27; Start 06/29/18 at 16:30 Sevelamer Carbonate (Renvela) 800 mg TIDWMEALS PO Last administered on 07/01/18 16:03; Start 06/29/18 at 17:00 Hydrocortisone (Cortef) 20 mg DAILYWBKFT PO Last administered on 07/01/18 08:27; Start 06/29/18 at 16:30 Multivitamins (Thera M Plus) 1 tab DAILY PO Last administered on 07/01/18 08:28; Start 06/29/18 at 16:30 Olanzapine (ZyPREXA) 20 mg QHS PO Last administered on 06/30/18 21:40; Start 06/29/18 at 21:00 Pantoprazole Sodium (Protonix) 40 mg DAILYAC PO Last administered on 06/29/18 18:31; Start 06/29/18 at 16:30; Stop 07/01/18 at 07:33; Status DC Heparin Sodium (Porcine) (Heparin Sodium) 5,000 unit Q8HRS SQ Last administered on 07/01/18 14:23; Start 06/29/18 at 22:00 Acetaminophen (Tylenol) 650 mg 1X ONCE PO Last administered on 06/29/18at 18:32; Start 06/29/18 at 16:30; Stop 06/29/18 at 16:31; Status DC Oxycodone/ Acetaminophen (Percocet 5/325) 1 tab PRN Q4HRS PRN PO PAIN; Start 06/29/18 at 20:00 Iohexol (Omnipaque 350 Mg/ml) 75 ml 1X ONCE IV Last administered on 06/29/18at 21:01; Start 06/29/18 at 21:00; Stop 06/29/18 at 21:03; Status DC Labetalol HCl (Normodyne Iv Push) 10 mg PRN Q10MIN PRN IVP HYPERTENSION, SEE COMMENTS; Start 06/29/18 at 21:15 Acetaminophen (Tylenol) 650 mg PRN Q6HRS PRN PO TEMP > 100.4F; Start 06/29/18 at 21:15 Acetaminophen (Tylenol Supp) 650 mg PRN Q4HRS PRN VA TEMP > 100.4F; Start 06/29/18 at 21:15 Aspirin (Ecotrin) 325 mg DAILYWBKFT PO Last administered on 07/01/18at 08:28; Start 06/30/18 at 08:00 Aspirin (Aspirin Rectal Supp) 300 mg PRN DAILY PRN VA IF UNABLE TO TAKE PO; Start 06/29/18 at 21:15 Morphine Sulfate (Morphine Sulfate) 2 mg PRN Q2HR PRN IV SEVERE PAIN Last administered on 06/29/18at 22:37; Start 06/29/18 at 22:30 Levetiracetam 500 mg/Dextrose 105 ml @ 420 mls/hr Q12HR IV Last administered on 07/01/18at 08:27; Start 06/30/18 at 00:00 Levetiracetam 1000 mg/Dextrose 110 ml @ 440 mls/hr 1X ONCE IV Last administered on 06/30/18at 02:25; Start 06/30/18 at 02:30; Stop 06/30/18 at 02:44; Status DC Lorazepam (Ativan) 1 mg PRN Q2HRS PRN IV TREMORS; Start 06/30/18 at 02:00 Fosphenytoin Sodium 1390 mg/ Sodium Chloride 77.8 ml @ 311.2 mls/ hr 1X ONCE IV Last administered on 06/30/18at 04:44; Start 06/30/18 at 05:00; Stop 06/30/18 at 05:14; Status DC Propofol 100 ml @ As Directed STK-MED ONCE IV ; Start 06/30/18 at 05:58; Stop 06/30/18 at 05:59; Status DC Succinylcholine Chloride (Anectine) 200 mg STK-MED ONCE .ROUTE ; Start 06/30/18 at 05:59; Stop 06/30/18 at 06:00; Status DC Propofol 100 ml @ 1.39 mls/hr 1X ONCE IV Last administered on 06/30/18at 06:30; Start 06/30/18 at 06:30; Stop 07/01/18 at 17:31; Status DC Succinylcholine Chloride (Anectine) 200 mg 1X ONCE IV Last administered on 06/30/18at 06:21; Start 06/30/18 at 06:30; Stop 06/30/18 at 06:31; Status DC Propofol 100 ml @ 0 mls/hr CONT PRN IV SEE I/O RECORD Last administered on 07/01/18at 17:33; Start 06/30/18 at 06:30 Fentanyl Citrate 30 ml @ 0 mls/hr CONT PRN IV SEE PROTOCOL; Start 06/30/18 at 06:30 Midazolam HCl 100 ml @ 0 mls/hr CONT PRN IV SEE PROTOCOL; Start 06/30/18 at 06:30 Fosphenytoin Sodium (Cerebyx) 100 mg Q8HRS IV Last administered on 07/01/18at 14:21; Start 06/30/18 at 14:00 Hydrocortisone Sodium Succinate (Solu-CORTEF) 100 mg Q8HRS IV Last administered on 07/01/18at 14:22; Start 06/30/18 at 14:00 Lansoprazole (Prevacid) 30 mg DAILYAC NG Last administered on 07/01/18at 08:27; Start 07/01/18 at 07:30 Sodium Chloride 1,000 ml @ 1,000 mls/hr Q1H PRN IV hypotension; Start 07/01/18 at 08:00; Stop 07/01/18 at 18:00; Status DC Albumin Human 200 ml @ 200 mls/hr 1X PRN PRN IV Hypotension; Start 07/01/18 at 08:00; Stop 07/01/18 at 18:00; Status DC Acetaminophen (Tylenol) 500 mg 1X PRN PRN PO MILD PAIN / TEMP; Start 07/01/18 at 07:45; Stop 07/01/18 at 18:00; Status DC Diphenhydramine HCl (Benadryl) 25 mg 1X PRN PRN IV ITCHING; Start 07/01/18 at 07:45; Stop 07/01/18 at 18:00; Status DC Diphenhydramine HCl (Benadryl) 25 mg 1X PRN PRN IV ITCHING; Start 07/01/18 at 07:45; Stop 07/01/18 at 18:00; Status DC Sodium Chloride (Normal Saline Flush) 10 ml 1X PRN PRN IV AP catheter pack; Start 07/01/18 at 07:45; Stop 07/01/18 at 18:00; Status DC Sodium Chloride (Normal Saline Flush) 10 ml 1X PRN PRN IV SPEECH TEACHER catheter pack; Start 07/01/18 at 07:45; Stop 07/01/18 at 18:00; Status DC Sodium Chloride 1,000 ml @ 400 mls/hr Q2H30M PRN IV PATENCY; Start 07/01/18 at 08:00; Stop 07/01/18 at 18:00; Status DC Info (PHARMACY MONITORING -- do not chart) 1 each PRN DAILY PRN MC SEE COMMENT S; Start 07/01/18 at 08:00 Active Scripts Active Clonidine Hcl 0.1 Mg Tablet 0.1 Mg PO BID [Pantoprazole] 40 MG Tablet.dr 40 Mg PO DAILYAC MDD 1 Renvela (Sevelamer Carbonate) 800 Mg Tablet 800 Mg PO TIDWMEALS MDD 1 Reported Multivitamins (Multivitamin) 1 Each Tablet 1 Tab PO DAILY Vitamin B-12 (Cyanocobalamin (Vitamin B-12)) 1,000 Mcg Tablet 1 Tab PO DAILY Olanzapine 20 Mg Tablet 20 Mg PO QHS Cortef (Hydrocortisone) 20 Mg Tablet 20 Mg PO DAILY Vitals/I & O Vital Sign - Last 24 Hours 06/30/18 06/30/18 06/30/18 06/30/18 19:00 19:56 20:00 20:00 Pulse 80 86 Resp 16 16 B/P (MAP) 139/86 (103) 141/86 (104) Pulse Ox 99 97 99 O2 Delivery Room Air Ventilator Room Air Mechanical Ventilator 06/30/18 06/30/18 06/30/18 06/30/18 21:00 21:00 22:00 23:00 Pulse 82 78 81 93 Resp 16 16 16 B/P (MAP) 110/70 110/70 (83) 141/94 (110) 128/83 (98) Pulse Ox 99 100 100 O2 Delivery Room Air Room Air Room Air 06/30/18 06/30/18 07/01/18 07/01/18 23:52 23:59 00:31 01:00 Temp 98.2 98.2 Pulse 91 77 Resp 16 16 B/P (MAP) 133/88 (103) 112/72 (85) Pulse Ox 98 100 97 O2 Delivery Ventilator Mechanical Ventilator Room Air Room Air 07/01/18 07/01/18 07/01/18 07/01/18 01:55 02:00 03:00 03:16 Pulse 74 73 Resp 14 14 B/P (MAP) 104/69 (81) 113/75 (88) Pulse Ox 98 97 97 98 O2 Delivery Ventilator Room Air Room Air Ventilator 07/01/18 07/01/18 07/01/18 07/01/18 04:00 04:00 05:00 05:06 Temp 98.3 98.3 Pulse 79 84 Resp 13 16 B/P (MAP) 117/84 (95) 117/81 (93) Pulse Ox 100 100 98 O2 Delivery Mechanical Ventilator Room Air Room Air Ventilator 07/01/18 07/01/18 07/01/18 07/01/18 06:10 07:00 07:48 08:00 Pulse 84 82 81 Resp 16 15 16 B/P (MAP) 118/81 (93) 124/82 (96) 123/86 (98) Pulse Ox 100 100 100 100 O2 Delivery Room Air Ventilator Ventilator Ventilator 07/01/18 07/01/18 07/01/18 07/01/18 08:00 08:00 08:28 09:00 Temp 99.0 99.0 Pulse 94 84 Resp 15 B/P (MAP) 124/87 141/86 (104) Pulse Ox 99 O2 Delivery Mechanical Ventilator Mechanical Ventilator Ventilator 07/01/18 07/01/18 07/01/18 07/01/18 09:30 10:00 11:00 11:43 Pulse 86 76 Resp 15 16 B/P (MAP) 119/82 (94) 138/85 (102) Pulse Ox 100 99 99 100 O2 Delivery Ventilator Ventilator Ventilator Ventilator 07/01/18 07/01/18 07/01/18 07/01/18 12:00 12:00 12:46 13:00 Temp 97.1 97.1 Pulse 81 84 Resp 16 16 B/P (MAP) 139/104 (116) 146/88 (107) Pulse Ox 99 100 100 O2 Delivery Mechanical Ventilator Ventilator Ventilator Ventilator 07/01/18 07/01/18 07/01/18 07/01/18 14:00 15:00 15:59 16:00 Temp 98.4 98.4 Pulse 75 101 101 Resp 16 14 14 B/P (MAP) 128/79 (95) 124/74 (91) 124/74 (91) Pulse Ox 95 98 97 98 O2 Delivery Ventilator Ventilator Ventilator Ventilator 07/01/18 07/01/18 16:00 17:00 Pulse 92 Resp 16 B/P (MAP) 119/81 (94) Pulse Ox 97 O2 Delivery Mechanical Ventilator Ventilator Intake and Output 06/30/18 06/30/18 07/01/18 15:00 23:00 07:00 Intake Total 205 ml 175 ml 207 ml Output Total 0 ml Balance 205 ml 175 ml 207 ml HILARIO PLASCENCIA MD July 01, 2018 18:14
[2018-07-01] MEDS: MORPHINE SULFATE 2 MG/ML VIAL. IV PRN (22:27)
[2018-07-01] MEDS: OLANZapine 5 MG TABLET PO SCH (22:27)
[2018-07-02] VITALS (24 sets, daily range): BP systolic 86–112; BP diastolic 58–78
[2018-07-02] MEDS: HYDROCORTISONE SOD SUCC/PF 100 MG/2 ML VIAL. IV SCH ×5 (03:42→22:00)
[2018-07-02] MEDS: FOSPHENYTOIN 100 MG/2 ML VIAL. IV SCH ×4 (03:42→22:00)
[2018-07-02] MEDS: PROPOFOL 100 ML IV PRN ×4 (03:44→21:00)
[2018-07-02] MEDS: MORPHINE SULFATE 2 MG/ML VIAL. IV PRN ×3 (03:44→09:35)
[2018-07-02] MEDS: HEPARIN for SUB-Q USE 5,000 UNIT/ML VIAL. SQ SCH ×3 (05:45→22:01)
[2018-07-02 08:20] LABS: BASE EXCESS ABG 2 mmol/L (-3-3); HCO3 ABG 26 mmol/L (21-28); PCO2 ABG 37 mmHg (35-46); PO2 ABG 90 mmHg (75-108); SAT O2 ABG 97 % (92-99)
[2018-07-02 08:22] LABS: FIO2 ABG 40
[2018-07-02] MEDS: levETIRAcetam 500 MG in IV DEXTROSE 5% 100ML 100 ML IV SCH ×2 (08:49→20:57)
[2018-07-02] MEDS: SEVELAMER CARBONATE 800 MG TABLET. PO SCH ×3 (08:49→17:52)
[2018-07-02] MEDS: CYANOCOBALAMIN (VITAMIN B-12) 1,000 MCG TABLET. PO SCH (08:49)
[2018-07-02] MEDS: cloNIDine HCL 0.1 MG TABLET PO SCH ×2 (08:50→21:00)
[2018-07-02] MEDS: LANSOPRAZOLE 30 MG TAB.RAP.DR NG SCH (08:50)
[2018-07-02] MEDS: MULTIVITAMIN with MINERAL TABLET. PO SCH (08:50)
[2018-07-02] MEDS: ASPIRIN ENTERIC COATED 325 MG TABLET.DR. PO SCH (08:50)
[2018-07-02] MEDS: HYDROCORTISONE 10 MG TABLET PO SCH (08:55)
--- NOTE | 2018-07-02 10:45 | RAD ---
AP portable chest radiograph 07/02/2018 Clinical History: Respiratory failure. An AP erect portable digital radiograph of the chest was obtained. Comparison study is dated 07/01/2018. The ET tube, NG tube and right internal jugular central venous catheter unchanged position. The cardiac silhouette is borderline enlarged. The thoracic aorta is mildly tortuous. Left lower lobe atelectasis and/or infiltrate is seen, unchanged. There is a probable small left pleural effusion, unchanged. Bilateral perihilar infiltrates are seen essentially unchanged. No pneumothorax is noted. The osseous structures are unchanged. Impression: 1. Bilateral perihilar infiltrates essentially unchanged. 2. Left lower lobe atelectasis and/or infiltrate with probable small left pleural effusion, unchanged Electronically signed by: Jaime Phillips MD (07/02/2018 10:42 AM) [facility]
--- NOTE | 2018-07-02 11:49 | PDOC ---
SUBJECTIVE ROS Intubated, sedated OBJECTIVE Vital Signs Vital Signs Date Time Temp Pulse Resp B/P (MAP) Pulse Ox O2 Delivery O2 Flow Rate FiO2 07/02/18 10:00 73 16 97/71 (80) 100 Ventilator 07/02/18 07:00 98.2 98.2 I & 0 Intake and Output 07/02/18 06:59 Intake Total 1237.7 ml Output Total 115 ml Balance 1122.7 ml Intake Oral 519 ml IV Total 258.7 ml Tube Feeding 188 ml Other 272 ml Output Urine Total 115 ml PHYSICAL EXAM Physical Exam General:Intubated, sedated Responsive when not sedated, HEENT:Intubated Neck: Supple Lungs- CTA bilat CV RRR Ext- No LE edema Gu- has Pete Neurological:Intubated sedated DIAGNOSIS/ASSESSMENT Assessment & Plan New ESRD - S/P Renal Bx with Dx of [place] -Anti GBM - Earlier this week On TTS schedule Currently no emergent indication for HD today Good pasture's syndrome- post renal Bx , results obtained earlier this week No Obvious Lung involvement Anti GBM and ANCA pending Malignant HTN - Controlled now Seizures - per neurology Posterior reversible encephalopathy syndrome,(PRES) Neurology following Serologies pending to rule out associated Vasculitis (not reported on renal Bx) Anemia - Hgb improved Monitor HEP B- Positive Ab, repeat negative 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 Per primary COMMENT/RELEVANT DATA Meds Current Medications Medications (Trade) Dose Ordered Sig/Essence Start Time Stop Time Status Last Admin Dose Admin Acetaminophen (Tylenol Supp) 650 mg PRN Q4HRS PRN 06/29/18 21:15 Acetaminophen (Tylenol) 500 mg 1X PRN PRN 07/01/18 07:45 07/01/18 18:00 DC Albumin Human 200 ml @ 200 mls/hr 1X PRN PRN 07/01/18 08:00 07/01/18 18:00 DC Aspirin (Aspirin Rectal Supp) 300 mg PRN DAILY PRN 06/29/18 21:15 Aspirin (Ecotrin) 325 mg DAILYWBKFT 06/30/18 08:00 07/02/18 08:50 325 MG Clonidine HCl (Catapres) 0.1 mg BID 06/29/18 21:00 07/02/18 08:50 0.1 MG Cyanocobalamin (Vitamin B-12) 1,000 mcg DAILY 06/29/18 16:30 07/02/18 08:49 1,000 MCG Diphenhydramine HCl (Benadryl) 25 mg 1X PRN PRN 07/01/18 07:45 07/01/18 18:00 DC Fentanyl Citrate 30 ml @ 0 mls/hr CONT PRN 06/30/18 06:30 Fosphenytoin Sodium (Cerebyx) 100 mg Q8HRS 06/30/18 14:00 07/02/18 05:45 100 MG Fosphenytoin Sodium 1390 mg/ Sodium Chloride 77.8 ml @ 311.2 mls/ hr 1X ONCE 06/30/18 05:00 06/30/18 05:14 DC 06/30/18 04:44 311.2 MLS/HR Heparin Sodium (Porcine) (Heparin Sodium) 5,000 unit Q8HRS 06/29/18 22:00 07/02/18 05:45 5,000 UNIT Hydrocortisone (Cortef) 20 mg DAILYWBKFT 06/29/18 16:30 07/02/18 09:53 DC 07/02/18 08:55 20 MG Hydrocortisone Sodium Succinate (Solu-CORTEF) 100 mg Q8HRS 06/30/18 14:00 07/02/18 05:45 100 MG Info (PHARMACY MONITORING -- do not chart) 1 each PRN DAILY PRN 07/01/18 08:00 Iohexol (Omnipaque 350 Mg/ml) 75 ml 1X ONCE 06/29/18 21:00 06/29/18 21:03 DC 06/29/18 21:01 75 ML Labetalol HCl (Normodyne Iv Push) 10 mg PRN Q10MIN PRN 06/29/18 21:15 Lansoprazole (Prevacid) 30 mg DAILYAC 07/01/18 07:30 07/02/18 08:50 30 MG Levetiracetam 1000 mg/Dextrose 110 ml @ 440 mls/hr 1X ONCE 06/30/18 02:30 06/30/18 02:44 DC 06/30/18 02:25 440 MLS/HR Levetiracetam 500 mg/Dextrose 105 ml @ 420 mls/hr Q12HR 06/30/18 00:00 07/02/18 08:49 420 MLS/HR Lorazepam (Ativan) 1 mg PRN Q2HRS PRN 06/30/18 02:00 Midazolam HCl 100 ml @ 0 mls/hr CONT PRN 06/30/18 06:30 Morphine Sulfate (Morphine Sulfate) 2 mg PRN Q2HR PRN 06/29/18 22:30 07/02/18 09:35 2 MG Multivitamins (Thera M Plus) 1 tab DAILY 06/29/18 16:30 07/02/18 08:50 1 TAB Olanzapine (ZyPREXA) 20 mg QHS 06/29/18 21:00 07/01/18 22:27 20 MG Ondansetron HCl (Zofran) 4 mg PRN Q8HRS PRN 06/29/18 12:15 06/30/18 12:14 DC Oxycodone/ Acetaminophen (Percocet 5/325) 1 tab PRN Q4HRS PRN 06/29/18 20:00 Pantoprazole Sodium (Protonix) 40 mg DAILYAC 06/29/18 16:30 07/01/18 07:33 DC 06/29/18 18:31 40 MG Propofol 100 ml @ 0 mls/hr CONT PRN 06/30/18 06:30 07/02/18 08:55 16.4 MLS/HR Sevelamer Carbonate (Renvela) 800 mg TIDWMEALS 06/29/18 17:00 07/02/18 08:49 800 MG Sodium Chloride 1,000 ml @ 400 mls/hr Q2H30M PRN 07/01/18 08:00 07/01/18 18:00 DC Sodium Chloride (Normal Saline Flush) 10 ml 1X PRN PRN 07/01/18 07:45 07/01/18 18:00 DC Succinylcholine Chloride (Anectine) 200 mg 1X ONCE 06/30/18 06:30 06/30/18 06:31 DC 06/30/18 06:21 200 MG Lab Laboratory Tests Test 07/02/18 08:10 O2 Saturation 97 % (92-99) Arterial Blood pH 7.46 (7.35-7.45) Arterial Blood pCO2 at Patient Temp 37 mmHg (35-46) Arterial Blood pO2 at Patient Temp 90 mmHg (75-108) Arterial Blood HCO3 26 mmol/L (21-28) Arterial Blood Base Excess 2 mmol/L (-3-3) FiO2 40 Results All relevant outside records, renal labs, imaging studies, telemetry/EKG's were reviewed. EDEL ADKINS MD July 02, 2018 11:49
--- NOTE | 2018-07-02 13:11 | PDOC ---
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 Noncompliance Garza's Hep B Malignant HTN Posterior reversible encephalopathy syndrome History of Present Illness History of Present Illness Patient seen and examined in the ICU His sister is present Vent settings as follows assist-control//500/50% with 5 of PEEP He is critically ill Discussed with RN and the sister Reviewed notes Vitals Vitals Vital Signs Date Time Temp Pulse Resp B/P (MAP) Pulse Ox O2 Delivery O2 Flow Rate FiO2 07/02/18 11:40 100 Ventilator 07/02/18 11:00 69 16 86/61 (69) 07/02/18 07:00 98.2 98.2 Physical Exam General: Other Heart: Regular rate, Normal S1, Normal S2 Lungs: Clear Abdomen: Normal bowel sounds, Soft Extremities: No cyanosis Skin: No rashes, Other Labs LABS Laboratory Tests Test 07/02/18 08:10 O2 Saturation 97 % (92-99) Arterial Blood pH 7.46 (7.35-7.45) Arterial Blood pCO2 at Patient Temp 37 mmHg (35-46) Arterial Blood pO2 at Patient Temp 90 mmHg (75-108) Arterial Blood HCO3 26 mmol/L (21-28) Arterial Blood Base Excess 2 mmol/L (-3-3) FiO2 40 Review of Systems Review of Systems Unable to obtain he is on the ventilator Assessment and Plan Assessmemt and Plan Problems Medical Problems: (1) Hypertension Status: Acute Respiratory failure Seizures Goodpasture's disease newly diagnosed Newly started on dialysis Noncompliance Garza's Hep B Malignant HTN Posterior reversible encephalopathy syndrome Plan Hemodialysis per nephrology recommendations IV antibiotics Hydrocortisone 100 mg IV every 8 to cover for Arron's ICU monitoring Frequent labs DVT prophylaxis Full code Appreciate subspecialist input He is critically ill Total time 33 minutes Comment Review of Relevant I have reviewed the following items medardo (where applicable) has been applied. Labs Laboratory Tests Test 07/01/18 08:00 07/01/18 08:50 07/02/18 08:10 O2 Saturation 98 % (92-99) 97 % (92-99) Arterial Blood pH 7.49 (7.35-7.45) 7.46 (7.35-7.45) Arterial Blood pCO2 at Patient Temp 34 mmHg (35-46) 37 mmHg (35-46) Arterial Blood pO2 at Patient Temp 114 mmHg (75-108) 90 mmHg (75-108) Arterial Blood HCO3 26 mmol/L (21-28) 26 mmol/L (21-28) Arterial Blood Base Excess 3 mmol/L (-3-3) 2 mmol/L (-3-3) FiO2 50 40 White Blood Count 9.0 x10^3/uL (4.0-11.0) Red Blood Count 3.20 x10^6/uL (4.30-5.70) Hemoglobin 10.1 g/dL (13.0-17.5) Hematocrit 30.2 % (39.0-53.0) Mean Corpuscular Volume 95 fL (79-100) Mean Corpuscular Hemoglobin 32 pg (25-35) Mean Corpuscular Hemoglobin Concent 34 g/dL (31-37) Red Cell Distribution Width 19.3 % (11.5-14.5) Platelet Count 309 x10^3/uL (140-400) Sodium Level 139 mmol/L (136-145) Potassium Level 3.4 mmol/L (3.5-5.1) Chloride Level 102 mmol/L (98-107) Carbon Dioxide Level 25 mmol/L (21-32) Anion Gap 12 (6-14) Blood Urea Nitrogen 30 mg/dL (8-26) Creatinine 7.3 mg/dL (0.7-1.3) Estimated GFR (Cockcroft-Gault) 8.1 Glucose Level 146 mg/dL (70-99) Calcium Level 7.3 mg/dL (8.5-10.1) Phenytoin (Dilantin) Level 12.5 mcg/mL (10.0-20.0) Phenytoin Last Dose Date 06/30/18 Phenytoin Last Dose Time 2100 Laboratory Tests Test 07/02/18 08:10 O2 Saturation 97 % (92-99) Arterial Blood pH 7.46 (7.35-7.45) Arterial Blood pCO2 at Patient Temp 37 mmHg (35-46) Arterial Blood pO2 at Patient Temp 90 mmHg (75-108) Arterial Blood HCO3 26 mmol/L (21-28) Arterial Blood Base Excess 2 mmol/L (-3-3) FiO2 40 Microbiology 06/30/18 Urine Culture - Final, Complete 06/30/18 Urine Culture Result 1 (LINH) - Final, Complete Medications Current Medications Morphine Sulfate (Morphine Sulfate) 4 mg 1X ONCE IV Last administered on 06/29/18 11:40; Start 06/29/18 at 11:30; Stop 06/29/18 at 11:31; Status DC Ondansetron HCl (Zofran) 4 mg 1X ONCE IV Last administered on 06/29/18 11:44; Start 06/29/18 at 11:45; Stop 06/29/18 at 11:46; Status DC Ondansetron HCl (Zofran) 4 mg STK-MED ONCE .ROUTE ; Start 06/29/18 at 11:43; Stop 06/29/18 at 11:44; Status DC Ondansetron HCl (Zofran) 4 mg PRN Q8HRS PRN IV NAUSEA/VOMITING; Start 06/29/18 at 12:15; Stop 06/30/18 at 12:14; Status DC Morphine Sulfate (Morphine Sulfate) 4 mg 1X ONCE IV Last administered on 06/29/18 13:25; Start 06/29/18 at 13:30; Stop 06/29/18 at 13:31; Status DC Clonidine HCl (Catapres) 0.1 mg BID PO Last administered on 07/02/18 08:50; Start 06/29/18 at 21:00 Cyanocobalamin (Vitamin B-12) 1,000 mcg DAILY PO Last administered on 07/02/18 08:49; Start 06/29/18 at 16:30 Sevelamer Carbonate (Renvela) 800 mg TIDWMEALS PO Last administered on 07/02/18 08:49; Start 06/29/18 at 17:00 Hydrocortisone (Cortef) 20 mg DAILYWBKFT PO Last administered on 07/02/18 08:55; Start 06/29/18 at 16:30; Stop 07/02/18 at 09:53; Status DC Multivitamins (Thera M Plus) 1 tab DAILY PO Last administered on 07/02/18 08:50; Start 06/29/18 at 16:30 Olanzapine (ZyPREXA) 20 mg QHS PO Last administered on 07/01/18 22:27; Start 06/29/18 at 21:00 Pantoprazole Sodium (Protonix) 40 mg DAILYAC PO Last administered on 5/9/19at 1 8:31; Start 06/29/18 at 16:30; Stop 07/01/18 at 07:33; Status DC Heparin Sodium (Porcine) (Heparin Sodium) 5,000 unit Q8HRS SQ Last administered on 07/02/18at 05:45; Start 06/29/18 at 22:00 Acetaminophen (Tylenol) 650 mg 1X ONCE PO Last administered on 06/29/18at 18:32; Start 06/29/18 at 16:30; Stop 06/29/18 at 16:31; Status DC Oxycodone/ Acetaminophen (Percocet 5/325) 1 tab PRN Q4HRS PRN PO PAIN; Start 06/29/18 at 20:00 Iohexol (Omnipaque 350 Mg/ml) 75 ml 1X ONCE IV Last administered on 06/29/18at 21:01; Start 06/29/18 at 21:00; Stop 06/29/18 at 21:03; Status DC Labetalol HCl (Normodyne Iv Push) 10 mg PRN Q10MIN PRN IVP HYPERTENSION, SEE COMMENTS; Start 06/29/18 at 21:15 Acetaminophen (Tylenol) 650 mg PRN Q6HRS PRN PO TEMP > 100.4F; Start 06/29/18 at 21:15 Acetaminophen (Tylenol Supp) 650 mg PRN Q4HRS PRN HI TEMP > 100.4F; Start 06/29/18 at 21:15 Aspirin (Ecotrin) 325 mg DAILYWBKFT PO Last administered on 07/02/18at 08:50; Start 06/30/18 at 08:00 Aspirin (Aspirin Rectal Supp) 300 mg PRN DAILY PRN HI IF UNABLE TO TAKE PO; Start 06/29/18 at 21:15 Morphine Sulfate (Morphine Sulfate) 2 mg PRN Q2HR PRN IV SEVERE PAIN Last administered on 07/02/18at 09:35; Start 06/29/18 at 22:30 Levetiracetam 500 mg/Dextrose 105 ml @ 420 mls/hr Q12HR IV Last administered on 07/02/18at 08:49; Start 06/30/18 at 00:00 Levetiracetam 1000 mg/Dextrose 110 ml @ 440 mls/hr 1X ONCE IV Last administered on 06/30/18at 02:25; Start 06/30/18 at 02:30; Stop 06/30/18 at 02:44; Status DC Lorazepam (Ativan) 1 mg PRN Q2HRS PRN IV TREMORS; Start 06/30/18 at 02:00 Fosphenytoin Sodium 1390 mg/ Sodium Chloride 77.8 ml @ 311.2 mls/ hr 1X ONCE IV Last administered on 06/30/18at 04:44; Start 06/30/18 at 05:00; Stop 06/30/18 at 05:14; Status DC Propofol 100 ml @ As Directed STK-MED ONCE IV ; Start 06/30/18 at 05:58; Stop 06/30/18 at 05:59; Status DC Succinylcholine Chloride (Anectine) 200 mg STK-MED ONCE .ROUTE ; Start 06/30/18 at 05:59; Stop 06/30/18 at 06:00; Status DC Propofol 100 ml @ 1.39 mls/hr 1X ONCE IV Last administered on 06/30/18at 06:30; Start 06/30/18 at 06:30; Stop 07/01/18 at 17:31; Status DC Succinylcholine Chloride (Anectine) 200 mg 1X ONCE IV Last administered on 06/30/18at 06:21; Start 06/30/18 at 06:30; Stop 06/30/18 at 06:31; Status DC Propofol 100 ml @ 0 mls/hr CONT PRN IV SEE I/O RECORD Last administered on 07/02/18at 08:55; Start 06/30/18 at 06:30 Fentanyl Citrate 30 ml @ 0 mls/hr CONT PRN IV SEE PROTOCOL; Start 06/30/18 at 06:30 Midazolam HCl 100 ml @ 0 mls/hr CONT PRN IV SEE PROTOCOL; Start 06/30/18 at 06:30 Fosphenytoin Sodium (Cerebyx) 100 mg Q8HRS IV Last administered on 07/02/18at 05:45; Start 06/30/18 at 14:00 Hydrocortisone Sodium Succinate (Solu-CORTEF) 100 mg Q8HRS IV Last administered on 07/02/18at 05:45; Start 06/30/18 at 14:00 Lansoprazole (Prevacid) 30 mg DAILYAC NG Last administered on 07/02/18at 08:50; Start 07/01/18 at 07:30 Sodium Chloride 1,000 ml @ 1,000 mls/hr Q1H PRN IV hypotension; Start 07/01/18 at 08:00; Stop 07/01/18 at 18:00; Status DC Albumin Human 200 ml @ 200 mls/hr 1X PRN PRN IV Hypotension; Start 07/01/18 at 08:00; Stop 07/01/18 at 18:00; Status DC Acetaminophen (Tylenol) 500 mg 1X PRN PRN PO MILD PAIN / TEMP; Start 07/01/18 at 07:45; Stop 07/01/18 at 18:00; Status DC Diphenhydramine HCl (Benadryl) 25 mg 1X PRN PRN IV ITCHING; Start 07/01/18 at 07:45; Stop 07/01/18 at 18:00; Status DC Diphenhydramine HCl (Benadryl) 25 mg 1X PRN PRN IV ITCHING; Start 07/01/18 at 07:45; Stop 07/01/18 at 18:00; Status DC Sodium Chloride (Normal Saline Flush) 10 ml 1X PRN PRN IV AP catheter pack; Start 07/01/18 at 07:45; Stop 07/01/18 at 18:00; Status DC Sodium Chloride (Normal Saline Flush) 10 ml 1X PRN PRN IV DOUGHNUT MAKER catheter pack; Start 07/01/18 at 07:45; Stop 07/01/18 at 18:00; Status DC Sodium Chloride 1,000 ml @ 400 mls/hr Q2H30M PRN IV PATENCY; Start 07/01/18 at 08:00; Stop 07/01/18 at 18:00; Status DC Info (PHARMACY MONITORING -- do not chart) 1 each PRN DAILY PRN [facility] RORO Fuller OMKANNAN; Start 07/01/18 at 08:00 Active Scripts Active Clonidine Hcl 0.1 Mg Tablet 0.1 Mg PO BID [Pantoprazole] 40 MG Tablet.dr 40 Mg PO DAILYAC MDD 1 Renvela (Sevelamer Carbonate) 800 Mg Tablet 800 Mg PO TIDWMEALS MDD 1 Reported Multivitamins (Multivitamin) 1 Each Tablet 1 Tab PO DAILY Vitamin B-12 (Cyanocobalamin (Vitamin B-12)) 1,000 Mcg Tablet 1 Tab PO DAILY Olanzapine 20 Mg Tablet 20 Mg PO QHS Cortef (Hydrocortisone) 20 Mg Tablet 20 Mg PO DAILY Vitals/I & O Vital Sign - Last 24 Hours 07/01/18 07/01/18 07/01/18 07/01/18 14:00 15:00 15:59 16:00 Temp 98.4 98.4 Pulse 75 101 101 Resp 16 14 14 B/P (MAP) 128/79 (95) 124/74 (91) 124/74 (91) Pulse Ox 95 98 97 98 O2 Delivery Ventilator Ventilator Ventilator Ventilator 07/01/18 07/01/18 07/01/18 07/01/18 16:00 17:00 18:00 18:10 Pulse 92 85 Resp 16 16 B/P (MAP) 119/81 (94) 98/69 (79) Pulse Ox 97 96 96 O2 Delivery Mechanical Ventilator Ventilator Ventilator Ventilator 07/01/18 07/01/18 07/01/18 07/01/18 19:00 20:00 20:00 20:05 Temp 98.7 98.7 Pulse 83 82 Resp 16 16 B/P (MAP) 101/68 (79) 93/66 (75) Pulse Ox 98 98 99 O2 Delivery Ventilator Mechanical Ventilator Ventilator Ventilator 07/01/18 07/01/18 07/01/18 07/01/18 21:00 21:00 22:00 22:27 Pulse 78 80 88 Resp 17 16 16 B/P (MAP) 94/64 121/88 (99) 96/68 (77) Pulse Ox 100 100 99 O2 Delivery Ventilator Ventilator 07/01/18 07/01/18 07/02/18 07/02/18 23:00 23:23 00:01 00:01 Temp 98.7 98.7 Pulse 79 85 Resp 16 16 B/P (MAP) 100/68 (79) 103/68 (80) Pulse Ox 99 100 98 O2 Delivery Ventilator Ventilator Ventilator Mechanical Ventilator 07/02/18 07/02/18 07/02/18 07/02/18 01:00 02:00 02:18 03:00 Pulse 75 74 78 Resp 15 16 16 B/P (MAP) 92/64 (73) 89/58 (68) 94/64 (74) Pulse Ox 96 96 96 97 O2 Delivery Ventilator Ventilator Ventilator Ventilator 07/02/18 07/02/18 07/02/18 07/02/18 03:44 04:00 04:00 04:22 Temp 97.7 97.7 Pulse 70 Resp 16 16 B/P (MAP) 92/61 (71) Pulse Ox 97 96 96 O2 Delivery Ventilator Mechanical Ventilator Ventilator Ventilator 07/02/18 07/02/18 07/02/18 07/02/18 05:00 05:46 05:54 06:00 Pulse 73 75 Resp 16 16 16 B/P (MAP) 86/58 (67) 107/73 (84) Pulse Ox 97 96 96 100 O2 Delivery Ventilator Ventilator Ventilator 07/02/18 07/02/18 07/02/18 07/02/18 07:00 07:57 08:00 08:00 Temp 98.2 98.2 Pulse 72 71 Resp 16 16 B/P (MAP) 103/69 (80) 106/69 (81) Pulse Ox 100 100 100 O2 Delivery Ventilator Ventilator Ventilator Mechanical Ventilator 07/02/18 07/02/18 07/02/18 07/02/18 08:50 09:00 09:35 10:00 Pulse 71 69 73 Resp 16 16 16 B/P (MAP) 106/69 112/74 (87) 97/71 (80) Pulse Ox 98 100 100 O2 Delivery Ventilator Ventilator Ventilator 07/02/18 07/02/18 07/02/18 10:05 11:00 11:40 Pulse 69 Resp 16 16 B/P (MAP) 86/61 (69) Pulse Ox 100 100 100 O2 Delivery Ventilator Ventilator Ventilator Intake and Output 07/01/18 07/01/18 07/02/18 15:00 23:00 07:00 Intake Total 896 ml 341.7 ml Output Total 45 ml 10 ml 65 ml Balance -45 ml 886 ml 276.7 ml SILVANO HARDY K III DO July 02, 2018 13:11
--- NOTE | 2018-07-02 15:21 | PDOC ---
PULMONARY PROGRESS NOTES Subjective PT ON AC MODE SEDATED Vitals Vital Signs Date Time Temp Pulse Resp B/P (MAP) Pulse Ox O2 Delivery O2 Flow Rate FiO2 07/02/18 15:16 100 Ventilator 07/02/18 14:00 70 16 99/74 (82) 07/02/18 12:00 98.5 98.5 Lungs: Clear Cardiovascular: S1, S2 Abdomen: Soft Extremities: Other (EDEMA) Labs Laboratory Tests Test 07/01/18 08:00 07/01/18 08:50 07/02/18 08:10 O2 Saturation 98 % (92-99) 97 % (92-99) Arterial Blood pH 7.49 (7.35-7.45) 7.46 (7.35-7.45) Arterial Blood pCO2 at Patient Temp 34 mmHg (35-46) 37 mmHg (35-46) Arterial Blood pO2 at Patient Temp 114 mmHg (75-108) 90 mmHg (75-108) Arterial Blood HCO3 26 mmol/L (21-28) 26 mmol/L (21-28) Arterial Blood Base Excess 3 mmol/L (-3-3) 2 mmol/L (-3-3) FiO2 50 40 White Blood Count 9.0 x10^3/uL (4.0-11.0) Red Blood Count 3.20 x10^6/uL (4.30-5.70) Hemoglobin 10.1 g/dL (13.0-17.5) Hematocrit 30.2 % (39.0-53.0) Mean Corpuscular Volume 95 fL (79-100) Mean Corpuscular Hemoglobin 32 pg (25-35) Mean Corpuscular Hemoglobin Concent 34 g/dL (31-37) Red Cell Distribution Width 19.3 % (11.5-14.5) Platelet Count 309 x10^3/uL (140-400) Sodium Level 139 mmol/L (136-145) Potassium Level 3.4 mmol/L (3.5-5.1) Chloride Level 102 mmol/L (98-107) Carbon Dioxide Level 25 mmol/L (21-32) Anion Gap 12 (6-14) Blood Urea Nitrogen 30 mg/dL (8-26) Creatinine 7.3 mg/dL (0.7-1.3) Estimated GFR (Cockcroft-Gault) 8.1 Glucose Level 146 mg/dL (70-99) Calcium Level 7.3 mg/dL (8.5-10.1) Phenytoin (Dilantin) Level 12.5 mcg/mL (10.0-20.0) Phenytoin Last Dose Date 06/30/18 Phenytoin Last Dose Time 2100 Laboratory Tests Test 07/02/18 08:10 O2 Saturation 97 % (92-99) Arterial Blood pH 7.46 (7.35-7.45) Arterial Blood pCO2 at Patient Temp 37 mmHg (35-46) Arterial Blood pO2 at Patient Temp 90 mmHg (75-108) Arterial Blood HCO3 26 mmol/L (21-28) Arterial Blood Base Excess 2 mmol/L (-3-3) FiO2 40 Medications Active Scripts Medications Dose Route/Sig Max Daily Dose Days Date Category Clonidine Hcl 0.1 Mg Tablet 0.1 Mg PO BID 06/27/18 Rx [Pantoprazole] 40 MG Tablet.dr 40 Mg PO DAILYAC MDD 1 06/27/18 Rx Renvela (Sevelamer Carbonate) 800 Mg Tablet 800 Mg PO TIDWMEALS MDD 1 06/27/18 Rx Multivitamins (Multivitamin) 1 Each Tablet 1 Tab PO DAILY 06/23/18 Reported Vitamin B-12 (Cyanocobalamin (Vitamin B-12)) 1,000 Mcg Tablet 1 Tab PO DAILY 06/23/18 Reported Olanzapine 20 Mg Tablet 20 Mg PO QHS 06/23/18 Reported Cortef (Hydrocortisone) 20 Mg Tablet 20 Mg PO DAILY 06/22/18 Reported Impression . IMPRESSION: 1. Acute respiratory failure secondary to seizures. 2. Posterior reversible encephalopathy syndrome related to hypertension and renal insufficiency. 3. Encephalopathy. 4. End-stage renal disease. 5. Schizophrenia. 6. Hepatitis B positive antibodies. 7. Tobacco abuse. 8. Noncompliance. 9. PRES ON MRI BRAIN Plan . WILL CONTINUE SUPPORT POSSIBLE TRIAL 07/03 AC MODE NOT READY FOR TRIAL HD FOLLOW NEURO FOLLOW SEROLOGY FLORINA BROWN MD July 02, 2018 15:21
--- NOTE | 2018-07-02 18:36 | PDOC ---
PROGRESS NOTES Assessment 1. Posterior reversible encephalopathy syndrome noted on CAT scan and MRI brain. The MRI revealed tiny petechial hemorrhage which was not seen on the CAT scan. He remains intubated and sedated. He is able to awaken more easily and follow some simple commands. He is able to squeeze hands but I still only see wiggling of his left foot and not his right 2. Hypertensive emergency. The blood pressure has been much better controlled today.. The hypertension in combination with the acute renal failure likely contributed to the fulminant PRES syndrome. 3. Seizures for which he is on fosphenytoin and levetiracetam. Nursing staff has not noted any seizures. 4. He has acute renal failure and is receiving dialysis. 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 Plan 1. He will continue with intubation and sedation until stable. Pulmonary service is following and will manage. 2. Blood pressures will continue to require close monitoring in the intensive care unit. 3. We will continue intravenous levetiracetam and fosphenytoin for seizure prev ention. 4. He will continue with hemodialysis for the acute renal failure. We will need the social service to help sort out what support is available for him to receive dialysis upon discharge. He is on a Tuesday, , Tuesday regimen. Subjective Intubated, sedated and nonverbal Objective Vital Signs Date Time Temp Pulse Resp B/P (MAP) Pulse Ox O2 Delivery O2 Flow Rate FiO2 07/02/18 18:00 72 16 105/75 (85) 100 Ventilator 07/02/18 15:00 98.4 98.4 Intake and Output 07/02/18 06:59 Intake Total 1237.7 ml Output Total 115 ml Balance 1122.7 ml Intake Oral 519 ml IV Total 258.7 ml Tube Feeding 188 ml Other 272 ml Output Urine Total 115 ml PHYSICAL EXAM He continues on sedating medications. He attempted to open his eyes to command. When the eyes were manually held open the eyes were conjugate. He was not able to move his eyes to command. The face was symmetric. He reacted to loud clap. Tone was symmetric in upper and lower extremities. Nailbed pressure did not provoke her response in any extremity. He was able to squeeze my fingers on command bilaterally. He was able to wiggle the toes on his left foot but not on the right. Review of Relevant I have reviewed the following items medardo (where applicable) has been applied. Labs Laboratory Tests Test 07/01/18 08:00 07/01/18 08:50 07/02/18 08:10 O2 Saturation 98 % (92-99) 97 % (92-99) Arterial Blood pH 7.49 (7.35-7.45) 7.46 (7.35-7.45) Arterial Blood pCO2 at Patient Temp 34 mmHg (35-46) 37 mmHg (35-46) Arterial Blood pO2 at Patient Temp 114 mmHg (75-108) 90 mmHg (75-108) Arterial Blood HCO3 26 mmol/L (21-28) 26 mmol/L (21-28) Arterial Blood Base Excess 3 mmol/L (-3-3) 2 mmol/L (-3-3) FiO2 50 40 White Blood Count 9.0 x10^3/uL (4.0-11.0) Red Blood Count 3.20 x10^6/uL (4.30-5.70) Hemoglobin 10.1 g/dL (13.0-17.5) Hematocrit 30.2 % (39.0-53.0) Mean Corpuscular Volume 95 fL (79-100) Mean Corpuscular Hemoglobin 32 pg (25-35) Mean Corpuscular Hemoglobin Concent 34 g/dL (31-37) Red Cell Distribution Width 19.3 % (11.5-14.5) Platelet Count 309 x10^3/uL (140-400) Sodium Level 139 mmol/L (136-145) Potassium Level 3.4 mmol/L (3.5-5.1) Chloride Level 102 mmol/L (98-107) Carbon Dioxide Level 25 mmol/L (21-32) Anion Gap 12 (6-14) Blood Urea Nitrogen 30 mg/dL (8-26) Creatinine 7.3 mg/dL (0.7-1.3) Estimated GFR (Cockcroft-Gault) 8.1 Glucose Level 146 mg/dL (70-99) Calcium Level 7.3 mg/dL (8.5-10.1) Phenytoin (Dilantin) Level 12.5 mcg/mL (10.0-20.0) Phenytoin Last Dose Date 06/30/18 Phenytoin Last Dose Time 2100 Laboratory Tests Test 07/02/18 08:10 O2 Saturation 97 % (92-99) Arterial Blood pH 7.46 (7.35-7.45) Arterial Blood pCO2 at Patient Temp 37 mmHg (35-46) Arterial Blood pO2 at Patient Temp 90 mmHg (75-108) Arterial Blood HCO3 26 mmol/L (21-28) Arterial Blood Base Excess 2 mmol/L (-3-3) FiO2 40 Microbiology 06/30/18 Urine Culture - Final, Complete 06/30/18 Urine Culture Result 1 (LINH) - Final, Complete Medications Current Medications Morphine Sulfate (Morphine Sulfate) 4 mg 1X ONCE IV Last administered on 11:40; Start 06/29/18 at 11:30; Stop 06/29/18 at 11:31; Status DC Ondansetron HCl (Zofran) 4 mg 1X ONCE IV Last administered on 06/29/18at 11:44; Start 06/29/18 at 11:45; Stop 06/29/18 at 11:46; Status DC Ondansetron HCl (Zofran) 4 mg STK-MED ONCE .ROUTE ; Start 06/29/18 at 11:43; Stop 06/29/18 at 11:44; Status DC Ondansetron HCl (Zofran) 4 mg PRN Q8HRS PRN IV NAUSEA/VOMITING; Start 06/29/18 at 12:15; Stop 06/30/18 at 12:14; Status DC Morphine Sulfate (Morphine Sulfate) 4 mg 1X ONCE IV Last administered on 06/29/18at 13:25; Start 06/29/18 at 13:30; Stop 06/29/18 at 13:31; Status DC Clonidine HCl (Catapres) 0.1 mg BID PO Last administered on 07/02/18at 08:50; Start 06/29/18 at 21:00 Cyanocobalamin (Vitamin B-12) 1,000 mcg DAILY PO Last administered on 07/02/18 08:49; Start 06/29/18 at 16:30 Sevelamer Carbonate (Renvela) 800 mg TIDWMEALS PO Last administered on 07/02/18 17:52; Start 06/29/18 at 17:00 Hydrocortisone (Cortef) 20 mg DAILYWBKFT PO Last administered on 07/02/18at 08:55; Start 06/29/18 at 16:30; Stop 07/02/18 at 09:53; Status DC Multivitamins (Thera M Plus) 1 tab DAILY PO Last administered on 07/02/18at 08:50; Start 06/29/18 at 16:30 Olanzapine (ZyPREXA) 20 mg QHS PO Last administered on 07/01/18at 22:27; Start 06/29/18 at 21:00 Pantoprazole Sodium (Protonix) 40 mg DAILYAC PO Last administered on 06/29/18at 18:31; Start 06/29/18 at 16:30; Stop 07/01/18 at 07:33; Status DC Heparin Sodium (Porcine) (Heparin Sodium) 5,000 unit Q8HRS SQ Last administered on 07/02/18at 13:19; Start 06/29/18 at 22:00 Acetaminophen (Tylenol) 650 mg 1X ONCE PO Last administered on 06/29/18at 18:32; Start 06/29/18 at 16:30; Stop 06/29/18 at 16:31; Status DC Oxycodone/ Acetaminophen (Percocet 5/325) 1 tab PRN Q4HRS PRN PO PAIN; Start 06/29/18 at 20:00 Iohexol (Omnipaque 350 Mg/ml) 75 ml 1X ONCE IV Last administered on 06/29/18at 21:01; Start 06/29/18 at 21:00; Stop 06/29/18 at 21:03; Status DC Labetalol HCl (Normodyne Iv Push) 10 mg PRN Q10MIN PRN IVP HYPERTENSION, SEE COMMENTS; Start 06/29/18 at 21:15 Acetaminophen (Tylenol) 650 mg PRN Q6HRS PRN PO TEMP > 100.4F; Start 06/29/18 at 21:15 Acetaminophen (Tylenol Supp) 650 mg PRN Q4HRS PRN HI TEMP > 100.4F; Start 06/29/18 at 21:15 Aspirin (Ecotrin) 325 mg DAILYWBKFT PO Last administered on 07/02/18at 08:50; Start 06/30/18 at 08:00 Aspirin (Aspirin Rectal Supp) 300 mg PRN DAILY PRN HI IF UNABLE TO TAKE PO; Start 06/29/18 at 21:15 Morphine Sulfate (Morphine Sulfate) 2 mg PRN Q2HR PRN IV SEVERE PAIN Last administered on 07/02/18at 09:35; Start 06/29/18 at 22:30 Levetiracetam 500 mg/Dextrose 105 ml @ 420 mls/hr Q12HR IV Last administered on 07/02/18at 08:49; Start 06/30/18 at 00:00 Levetiracetam 1000 mg/Dextrose 110 ml @ 440 mls/hr 1X ONCE IV Last administered on 06/30/18at 02:25; Start 06/30/18 at 02:30; Stop 06/30/18 at 02:44; Status DC Lorazepam (Ativan) 1 mg PRN Q2HRS PRN IV TREMORS; Start 06/30/18 at 02:00 Fosphenytoin Sodium 1390 mg/ Sodium Chloride 77.8 ml @ 311.2 mls/ hr 1X ONCE IV Last administered on 06/30/18at 04:44; Start 06/30/18 at 05:00; Stop 06/30/18 at 05:14; Status DC Propofol 100 ml @ As Directed STK-MED ONCE IV ; Start 06/30/18 at 05:58; Stop 06/30/18 at 05:59; Status DC Succinylcholine Chloride (Anectine) 200 mg STK-MED ONCE .ROUTE ; Start 06/30/18 at 05:59; Stop 06/30/18 at 06:00; Status DC Propofol 100 ml @ 1.39 mls/hr 1X ONCE IV Last administered on 06/30/18at 06:30; Start 06/30/18 at 06:30; Stop 07/01/18 at 17:31; Status DC Succinylcholine Chloride (Anectine) 200 mg 1X ONCE IV Last administered on 06/30/18at 06:21; Start 06/30/18 at 06:30; Stop 06/30/18 at 06:31; Status DC Propofol 100 ml @ 0 mls/hr CONT PRN IV SEE I/O RECORD Last administered on 07/02/18at 15:15; Start 06/30/18 at 06:30 Fentanyl Citrate 30 ml @ 0 mls/hr CONT PRN IV SEE PROTOCOL; Start 06/30/18 at 06:30 Midazolam HCl 100 ml @ 0 mls/hr CONT PRN IV SEE PROTOCOL; Start 06/30/18 at 06:30 Fosphenytoin Sodium (Cerebyx) 100 mg Q8HRS IV Last administered on 07/02/18at 13 :17; Start 06/30/18 at 14:00 Hydrocortisone Sodium Succinate (Solu-CORTEF) 100 mg Q8HRS IV Last administered on 07/02/18at 13:17; Start 06/30/18 at 14:00 Lansoprazole (Prevacid) 30 mg DAILYAC NG Last administered on 07/02/18at 08:50; Start 07/01/18 at 07:30 Sodium Chloride 1,000 ml @ 1,000 mls/hr Q1H PRN IV hypotension; Start 07/01/18 at 08:00; Stop 07/01/18 at 18:00; Status DC Albumin Human 200 ml @ 200 mls/hr 1X PRN PRN IV Hypotension; Start 07/01/18 at 08:00; Stop 07/01/18 at 18:00; Status DC Acetaminophen (Tylenol) 500 mg 1X PRN PRN PO MILD PAIN / TEMP; Start 07/01/18 at 07:45; Stop 07/01/18 at 18:00; Status DC Diphenhydramine HCl (Benadryl) 25 mg 1X PRN PRN IV ITCHING; Start 07/01/18 at 07:45; Stop 07/01/18 at 18:00; Status DC Diphenhydramine HCl (Benadryl) 25 mg 1X PRN PRN IV ITCHING; Start 07/01/18 at 07:45; Stop 07/01/18 at 18:00; Status DC Sodium Chloride (Normal Saline Flush) 10 ml 1X PRN PRN IV AP catheter pack; Start 07/01/18 at 07:45; Stop 07/01/18 at 18:00; Status DC Sodium Chloride (Normal Saline Flush) 10 ml 1X PRN PRN IV [employer] catheter pack; Start 07/01/18 at 07:45; Stop 07/01/18 at 18:00; Status DC Sodium Chloride 1,000 ml @ 400 mls/hr Q2H30M PRN IV PATENCY; Start 07/01/18 at 08:00; Stop 07/01/18 at 18:00; Status DC Info (PHARMACY MONITORING -- do not chart) 1 each PRN DAILY PRN MC SEE COMMENTS; Start 07/01/18 at 08:00 Active Scripts Active Clonidine Hcl 0.1 Mg Tablet 0.1 Mg PO BID [Pantoprazole] 40 MG Tablet.dr 40 Mg PO DAILYAC MDD 1 Renvela (Sevelamer Carbonate) 800 Mg Tablet 800 Mg PO TIDWMEALS MDD 1 Reported Multivitamins (Multivitamin) 1 Each Tablet 1 Tab PO DAILY Vitamin B-12 (Cyanocobalamin (Vitamin B-12)) 1,000 Mcg Tablet 1 Tab PO DAILY Olanzapine 20 Mg Tablet 20 Mg PO QHS Cortef (Hydrocortisone) 20 Mg Tablet 20 Mg PO DAILY Vitals/I & O Vital Sign - Last 24 Hours 07/01/18 07/01/18 07/01/18 07/01/18 19:00 20:00 20:00 20:05 Temp 98.7 98.7 Pulse 83 82 Resp 16 16 B/P (MAP) 101/68 (79) 93/66 (75) Pulse Ox 98 98 99 O2 Delivery Ventilator Mechanical Ventilator Ventilator Ventilator 07/01/18 07/01/18 07/01/18 07/01/18 21:00 21:00 22:00 22:27 Pulse 78 80 88 Resp 17 16 16 B/P (MAP) 94/64 121/88 (99) 96/68 (77) Pulse Ox 100 100 99 O2 Delivery Ventilator Ventilator 07/01/18 07/01/18 07/02/18 07/02/18 23:00 23:23 00:01 00:01 Temp 98.7 98.7 Pulse 79 85 Resp 16 16 B/P (MAP) 100/68 (79) 103/68 (80) Pulse Ox 99 100 98 O2 Delivery Ventilator Ventilator Ventilator Mechanical Ventilator 07/02/18 07/02/18 07/02/18 07/02/18 01:00 02:00 02:18 03:00 Pulse 75 74 78 Resp 15 16 16 B/P (MAP) 92/64 (73) 89/58 (68) 94/64 (74) Pulse Ox 96 96 96 97 O2 Delivery Ventilator Ventilator Ventilator Ventilator 07/02/18 07/02/18 07/02/18 07/02/18 03:44 04:00 04:00 04:22 Temp 97.7 97.7 Pulse 70 Resp 16 16 B/P (MAP) 92/61 (71) Pulse Ox 97 96 96 O2 Delivery Ventilator Mechanical Ventilator Ventilator Ventilator 07/02/18 07/02/18 07/02/18 07/02/18 05:00 05:46 05:54 06:00 Pulse 73 75 Resp 16 16 16 B/P (MAP) 86/58 (67) 107/73 (84) Pulse Ox 97 96 96 100 O2 Delivery Ventilator Ventilator Ventilator 07/02/18 07/02/18 07/02/18 07/02/18 07:00 07:57 08:00 08:00 Temp 98.2 98.2 Pulse 72 71 Resp 16 16 B/P (MAP) 103/69 (80) 106/69 (81) Pulse Ox 100 100 100 O2 Delivery Ventilator Ventilator Ventilator Mechanical Ventilator 07/02/18 07/02/18 07/02/18 07/02/18 08:50 09:00 09:35 10:00 Pulse 71 69 73 Resp 16 16 16 B/P (MAP) 106/69 112/74 (87) 97/71 (80) Pulse Ox 98 100 100 O2 Delivery Ventilator Ventilator Ventilator 07/02/18 07/02/18 07/02/18 07/02/18 10:05 11:00 11:40 12:00 Pulse 69 Resp 16 16 B/P (MAP) 86/61 (69) Pulse Ox 100 100 100 O2 Delivery Ventilator Ventilator Ventilator Mechanical Ventilator 07/02/18 07/02/18 07/02/18 07/02/18 12:00 13:00 13:58 14:00 Temp 98.5 98.5 Pulse 69 71 70 Resp 16 16 16 B/P (MAP) 92/70 (77) 92/66 (75) 99/74 (82) Pulse Ox 100 100 100 100 O2 Delivery Ventilator Ventilator Ventilator Ventilator 07/02/18 07/02/18 07/02/18 07/02/18 15:00 15:16 16:00 16:00 Temp 98.4 98.4 Pulse 72 69 Resp 16 16 B/P (MAP) 91/59 (70) 98/67 (77) Pulse Ox 100 100 100 O2 Delivery Ventilator Ventilator Mechanical Ventilator Ventilator 07/02/18 07/02/18 07/02/18 17:00 17:42 18:00 Pulse 74 72 Resp 16 16 B/P (MAP) 100/69 (79) 105/75 (85) Pulse Ox 100 100 100 O2 Delivery Ventilator Ventilator Ventilator Intake and Output 5/01/0907/01/18 07/02/18 14:59 22:59 06:59 Intake Total 791 ml 446.7 ml Output Total 45 ml 10 ml 60 ml Balance -45 ml 781 ml 386.7 ml HILARIO PLASCENCIA MD July 02, 2018 18:36
[2018-07-02] MEDS: OLANZapine 5 MG TABLET PO SCH (20:57)
[2018-07-02] MEDS: oxyCODONE/APAP 5/325 1 TAB TABLET PO PRN (22:01)
[2018-07-02] MEDS ORDERED: GENTAMICIN 0.3% OPHTH OINTMENT 3.5GM TUBE. OU SCH (23:00)
[2018-07-03] VITALS (24 sets, daily range): BP systolic 92–144; BP diastolic 61–92
[2018-07-03] MEDS: TOBRAMYCIN 0.3% OPHTH SOLUTION 5ML BOTTLE. OU SCH ×7 (02:45→22:59)
[2018-07-03] MEDS: PROPOFOL 100 ML IV PRN (02:50)
[2018-07-03] MEDS: oxyCODONE/APAP 5/325 1 TAB TABLET PO PRN ×2 (02:51→20:46)
[2018-07-03 05:00] LABS: HEMATOCRIT 31.5 % (39.0-53.0); HEMOGLOBIN 10.2 g/dL (13.0-17.5); RED BLOOD COUNT 3.31 x10^6/uL (4.30-5.70); RED CELL DISTRIBUTION WIDTH 18.1 % (11.5-14.5); WHITE BLOOD COUNT 17.3 x10^3/uL (4.0-11.0)
[2018-07-03 05:32] LABS: CALCIUM 7.7 mg/dL (8.5-10.1); CREATININE 6.9 mg/dL (0.7-1.3); GFR 8.7; PHOSPHORUS 6.9 mg/dL (2.6-4.7); POTASSIUM 4.1 mmol/L (3.5-5.1)
[2018-07-03] MEDS: HYDROCORTISONE SOD SUCC/PF 100 MG/2 ML VIAL. IV SCH ×4 (06:26→20:54)
[2018-07-03] MEDS: FOSPHENYTOIN 100 MG/2 ML VIAL. IV SCH ×3 (06:27→21:15)
[2018-07-03] MEDS: HEPARIN for SUB-Q USE 5,000 UNIT/ML VIAL. SQ SCH ×3 (06:36→20:54)
[2018-07-03] MEDS: levETIRAcetam 500 MG in IV DEXTROSE 5% 100ML 100 ML IV SCH ×2 (08:04→20:47)
[2018-07-03] MEDS: ASPIRIN ENTERIC COATED 325 MG TABLET.DR. PO SCH (08:05)
[2018-07-03] MEDS: LANSOPRAZOLE 30 MG TAB.RAP.DR NG SCH (08:05)
[2018-07-03] MEDS: CYANOCOBALAMIN (VITAMIN B-12) 1,000 MCG TABLET. PO SCH (08:05)
[2018-07-03] MEDS: MULTIVITAMIN with MINERAL TABLET. PO SCH (08:05)
[2018-07-03] MEDS: SEVELAMER CARBONATE 800 MG TABLET. PO SCH ×3 (08:05→16:55)
[2018-07-03] MEDS: cloNIDine HCL 0.1 MG TABLET PO SCH ×3 (08:07→21:00)
--- NOTE | 2018-07-03 08:35 | PDOC ---
PULMONARY PROGRESS NOTES Subjective DID WELL ON TRIAL Vitals Vital Signs Date Time Temp Pulse Resp B/P (MAP) Pulse Ox O2 Delivery O2 Flow Rate FiO2 07/03/18 08:07 70 119/83 07/03/18 07:31 100 Ventilator 07/03/18 07:00 98.4 19 98.4 Lungs: Clear Cardiovascular: S1, S2 Abdomen: Soft Extremities: Other (EDEMA) Labs Laboratory Tests Test 07/01/18 08:50 07/02/18 08:10 07/03/18 03:50 White Blood Count 9.0 x10^3/uL (4.0-11.0) 17.3 x10^3/uL (4.0-11.0) Red Blood Count 3.20 x10^6/uL (4.30-5.70) 3.31 x10^6/uL (4.30-5.70) Hemoglobin 10.1 g/dL (13.0-17.5) 10.2 g/dL (13.0-17.5) Hematocrit 30.2 % (39.0-53.0) 31.5 % (39.0-53.0) Mean Corpuscular Volume 95 fL (79-100) 95 fL (79-100) Mean Corpuscular Hemoglobin 32 pg (25-35) 31 pg (25-35) Mean Corpuscular Hemoglobin Concent 34 g/dL (31-37) 32 g/dL (31-37) Red Cell Distribution Width 19.3 % (11.5-14.5) 18.1 % (11.5-14.5) Platelet Count 309 x10^3/uL (140-400) 332 x10^3/uL (140-400) Sodium Level 139 mmol/L (136-145) 134 mmol/L (136-145) Potassium Level 3.4 mmol/L (3.5-5.1) 4.1 mmol/L (3.5-5.1) Chloride Level 102 mmol/L (98-107) 96 mmol/L (98-107) Carbon Dioxide Level 25 mmol/L (21-32) 26 mmol/L (21-32) Anion Gap 12 (6-14) 12 (6-14) Blood Urea Nitrogen 30 mg/dL (8-26) 30 mg/dL (8-26) Creatinine 7.3 mg/dL (0.7-1.3) 6.9 mg/dL (0.7-1.3) Estimated GFR (Cockcroft-Gault) 8.1 8.7 Glucose Level 146 mg/dL (70-99) 113 mg/dL (70-99) Calcium Level 7.3 mg/dL (8.5-10.1) 7.7 mg/dL (8.5-10.1) Phenytoin (Dilantin) Level 12.5 mcg/mL (10.0-20.0) Phenytoin Last Dose Date 06/30/18 Phenytoin Last Dose Time 2100 O2 Saturation 97 % (92-99) Arterial Blood pH 7.46 (7.35-7.45) Arterial Blood pCO2 at Patient Temp 37 mmHg (35-46) Arterial Blood pO2 at Patient Temp 90 mmHg (75-108) Arterial Blood HCO3 26 mmol/L (21-28) Arterial Blood Base Excess 2 mmol/L (-3-3) FiO2 40 Phosphorus Level 6.9 mg/dL (2.6-4.7) Albumin 2.0 g/dL (3.4-5.0) Laboratory Tests Test 07/03/18 03:50 White Blood Count 17.3 x10^3/uL (4.0-11.0) Red Blood Count 3.31 x10^6/uL (4.30-5.70) Hemoglobin 10.2 g/dL (13.0-17.5) Hematocrit 31.5 % (39.0-53.0) Mean Corpuscular Volume 95 fL (79-100) Mean Corpuscular Hemoglobin 31 pg (25-35) Mean Corpuscular Hemoglobin Concent 32 g/dL (31-37) Red Cell Distribution Width 18.1 % (11.5-14.5) Platelet Count 332 x10^3/uL (140-400) Sodium Level 134 mmol/L (136-145) Potassium Level 4.1 mmol/L (3.5-5.1) Chloride Level 96 mmol/L (98-107) Carbon Dioxide Level 26 mmol/L (21-32) Anion Gap 12 (6-14) Blood Urea Nitrogen 30 mg/dL (8-26) Creatinine 6.9 mg/dL (0.7-1.3) Estimated GFR (Cockcroft-Gault) 8.7 Glucose Level 113 mg/dL (70-99) Calcium Level 7.7 mg/dL (8.5-10.1) Phosphorus Level 6.9 mg/dL (2.6-4.7) Albumin 2.0 g/dL (3.4-5.0) Medications Active Scripts Medications Dose Route/Sig Max Daily Dose Days Date Category Clonidine Hcl 0.1 Mg Tablet 0.1 Mg PO BID 06/27/18 Rx [Pantoprazole] 40 MG Tablet.dr 40 Mg PO DAILYAC MDD 1 06/27/18 Rx Renvela (Sevelamer Carbonate) 800 Mg Tablet 800 Mg PO TIDWMEALS MDD 1 06/27/18 Rx Multivitamins (Multivitamin) 1 Each Tablet 1 Tab PO DAILY 06/23/18 Reported Vitamin B-12 (Cyanocobalamin (Vitamin B-12)) 1,000 Mcg Tablet 1 Tab PO DAILY 06/23/18 Reported Olanzapine 20 Mg Tablet 20 Mg PO QHS 06/23/18 Reported Cortef (Hydrocortisone) 20 Mg Tablet 20 Mg PO DAILY 06/22/18 Reported Impression . IMPRESSION: 1. Acute respiratory failure secondary to seizures. 2. Posterior reversible encephalopathy syndrome related to hypertension and renal insufficiency. 3. Encephalopathy. 4. End-stage renal disease. 5. Schizophrenia. 6. Hepatitis B positive antibodies. 7. Tobacco abuse. 8. Noncompliance. 9. PRES ON MRI BRAIN Plan . DID WLL ON TRIAL EXTUBATED 07/03 HD FOLLOW NEURO FOLLOW SEROLOGY FLORINA BROWN MD July 03, 2018 08:35
--- NOTE | 2018-07-03 08:55 | RAD ---
Single view chest dated 07/03/2018. Comparison made to 07/02/2018. CLINICAL INDICATION: Ventilator dependent. FINDINGS: Single supine portable exam performed. Endotracheal tube, nasogastric tube and right-sided dialysis catheter in place, unchanged. Heart and mediastinal contours are stable. There is perihilar and bibasilar airspace disease with blunting of the costophrenic sulci, unchanged. No pneumothorax. IMPRESSION: 1. Bilateral airspace disease and pleural effusions, similar to prior study. 2. Stable position of tubes and lines. Electronically signed by: Maciel Urbano MD (07/03/2018 8:52 AM) [id number]
[2018-07-03 09:09] LABS: GLOMERULAR BASEMENT ABDY 42 units (0-20)
--- NOTE | 2018-07-03 10:13 | PDOC ---
SUBJECTIVE ROS Intubated, weaning trial today OBJECTIVE Vital Signs Vital Signs Date Time Temp Pulse Resp B/P (MAP) Pulse Ox O2 Delivery O2 Flow Rate FiO2 07/03/18 09:00 70 16 125/84 (98) 99 Ventilator 07/03/18 07:00 98.4 98.4 I & 0 Intake and Output 07/03/18 07:00 Intake Total 2716.2 ml Output Total 226 ml Balance 2490.2 ml IV Total 585.2 ml Tube Feeding 1330 ml Blood Product IV Normal Saline Flush 101 ml Other 700 ml Output Urine Total 226 ml Gastric Drainage Total 0 ml PHYSICAL EXAM Physical Exam General:Intubated, HEENT:Intubated Neck: Supple Lungs- CTA bilat CV RRR Ext- No LE edema Gu- has Pete DIAGNOSIS/ASSESSMENT Assessment & Plan New ESRD - S/P Renal Bx 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 Currently no emergent indication for HD today Good pasture's syndrome- post renal Bx , results obtained earlier this week No Obvious Lung involvement Anti GBM positive, ANCA pending Malignant HTN - Controlled now Seizures - per neurology Posterior reversible encephalopathy syndrome,(PRES) Neurology following Serologies pending to rule out associated Vasculitis Anemia - Hgb improved Monitor HEP B- Positive Ab, repeat negative Arron's - On Hydrocortisone Per primary Discussed with Pt's mom at bedside COMMENT/RELEVANT DATA Meds Current Medications Medications (Trade) Dose Ordered Sig/Essence Start Time Stop Time Status Last Admin Dose Admin Acetaminophen (Tylenol Supp) 650 mg PRN Q4HRS PRN 06/29/18 21:15 Acetaminophen (Tylenol) 500 mg 1X PRN PRN 07/01/18 07:45 07/01/18 18:00 DC Albumin Human 200 ml @ 200 mls/hr 1X PRN PRN 07/01/18 08:00 07/01/18 18:00 DC Aspirin (Aspirin Rectal Supp) 300 mg PRN DAILY PRN 06/29/18 21:15 Aspirin (Ecotrin) 325 mg DAILYWBKFT 06/30/18 08:00 07/03/18 08:05 325 MG Clonidine HCl (Catapres) 0.1 mg BID 06/29/18 21:00 07/03/18 08:07 0.1 MG Cyanocobalamin (Vitamin B-12) 1,000 mcg DAILY 06/29/18 16:30 07/03/18 08:05 1,000 MCG Diphenhydramine HCl (Benadryl) 25 mg 1X PRN PRN 07/01/18 07:45 07/01/18 18:00 DC Fentanyl Citrate 30 ml @ 0 mls/hr CONT PRN 06/30/18 06:30 Fosphenytoin Sodium (Cerebyx) 100 mg Q8HRS 06/30/18 14:00 07/03/18 06:27 100 MG Fosphenytoin Sodium 1390 mg/ Sodium Chloride 77.8 ml @ 311.2 mls/ hr 1X ONCE 06/30/18 05:00 06/30/18 05:14 DC 06/30/18 04:44 311.2 MLS/HR Gentamicin Sulfate (Gentak) 0.25 inch [id number] 07/02/18 23:00 Cancel Heparin Sodium (Porcine) (Heparin Sodium) 5,000 unit Q8HRS 06/29/18 22:00 07/03/18 06:36 5,000 UNIT Hydrocortisone (Cortef) 20 mg DAILYWBKFT 06/29/18 16:30 07/02/18 09:53 DC 07/02/18 08:55 20 MG Hydrocortisone Sodium Succinate (Solu-CORTEF) 100 mg Q8HRS 06/30/18 14:00 07/03/18 06:26 100 MG Info (PHARMACY MONITORING -- do not chart) 1 each PRN DAILY PRN 07/01/18 08:00 Iohexol (Omnipaque 350 Mg/ml) 75 ml 1X ONCE 06/29/18 21:00 06/29/18 21:03 DC 06/29/18 21:01 75 ML Labetalol HCl (Normodyne Iv Push) 10 mg PRN Q10MIN PRN 06/29/18 21:15 Lansoprazole (Prevacid) 30 mg DAILYAC 07/01/18 07:30 07/03/18 08:05 30 MG Levetiracetam 1000 mg/Dextrose 110 ml @ 440 mls/hr 1X ONCE 06/30/18 02:30 06/30/18 02:44 DC 06/30/18 02:25 440 MLS/HR Levetiracetam 500 mg/Dextrose 105 ml @ 420 mls/hr Q12HR 06/30/18 00:00 07/03/18 08:04 420 MLS/HR Lorazepam (Ativan) 1 mg PRN Q2HRS PRN 06/30/18 02:00 Midazolam HCl 100 ml @ 0 mls/hr CONT PRN 06/30/18 06:30 Morphine Sulfate (Morphine Sulfate) 2 mg PRN Q2HR PRN 06/29/18 22:30 07/02/18 09:35 2 MG Multivitamins (Thera M Plus) 1 tab DAILY 06/29/18 16:30 07/03/18 08:05 1 TAB Olanzapine (ZyPREXA) 20 mg QHS 06/29/18 21:00 07/02/18 20:57 20 MG Ondansetron HCl (Zofran) 4 mg PRN Q8HRS PRN 06/29/18 12:15 06/30/18 12:14 DC Oxycodone/ Acetaminophen (Percocet 5/325) 1 tab PRN Q4HRS PRN 06/29/18 20:00 07/03/18 02:51 1 TAB Pantoprazole Sodium (Protonix) 40 mg DAILYAC 06/29/18 16:30 07/01/18 07:33 DC 06/29/18 18:31 40 MG Propofol 100 ml @ 0 mls/hr CONT PRN 06/30/18 06:30 07/03/18 02:50 16.682 MLS/HR Sevelamer Carbonate (Renvela) 800 mg TIDWMEALS 06/29/18 17:00 07/03/18 08:05 800 MG Sodium Chloride 1,000 ml @ 400 mls/hr Q2H30M PRN 07/01/18 08:00 07/01/18 18:00 DC Sodium Chloride (Normal Saline Flush) 10 ml 1X PRN PRN 07/01/18 07:45 07/01/18 18:00 DC Succinylcholine Chloride (Anectine) 200 mg 1X ONCE 06/30/18 06:30 06/30/18 06:31 DC 06/30/18 06:21 200 MG Tobramycin Sulfate (Tobrex Ophth Soln) 2 drop Q4HRS 07/03/18 00:00 07/03/18 08:06 2 DROP Lab Laboratory Tests Test 07/03/18 03:50 White Blood Count 17.3 x10^3/uL (4.0-11.0) Red Blood Count 3.31 x10^6/uL (4.30-5.70) Hemoglobin 10.2 g/dL (13.0-17.5) Hematocrit 31.5 % (39.0-53.0) Mean Corpuscular Volume 95 fL (79-100) Mean Corpuscular Hemoglobin 31 pg (25-35) Mean Corpuscular Hemoglobin Concent 32 g/dL (31-37) Red Cell Distribution Width 18.1 % (11.5-14.5) Platelet Count 332 x10^3/uL (140-400) Sodium Level 134 mmol/L (136-145) Potassium Level 4.1 mmol/L (3.5-5.1) Chloride Level 96 mmol/L (98-107) Carbon Dioxide Level 26 mmol/L (21-32) Anion Gap 12 (6-14) Blood Urea Nitrogen 30 mg/dL (8-26) Creatinine 6.9 mg/dL (0.7-1.3) Estimated GFR (Cockcroft-Gault) 8.7 Glucose Level 113 mg/dL (70-99) Calcium Level 7.7 mg/dL (8.5-10.1) Phosphorus Level 6.9 mg/dL (2.6-4.7) Albumin 2.0 g/dL (3.4-5.0) Results All relevant outside records, renal labs, imaging studies, telemetry/EKG's were reviewed. Other Cxr- 1. Bilateral airspace disease and pleural effusions, similar to prior study. 2. Stable position of tubes and lines. EDEL ADKINS MD July 03, 2018 10:13
--- NOTE | 2018-07-03 11:14 | PDOC ---
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 Noncompliance Datil's Hep B Malignant HTN Posterior reversible encephalopathy syndrome History of Present Illness History of Present Illness Patient seen and examined in the ICU His sister is present Vent settings as follows assist-control/16/500/50% with 5 of PEEP We are going to try weaning trial today Discussed with RN and the sister Reviewed notes Vitals Vitals Vital Signs Date Time Temp Pulse Resp B/P (MAP) Pulse Ox O2 Delivery O2 Flow Rate FiO2 07/03/18 11:00 77 15 140/92 (108) 100 Ventilator 07/03/18 07:00 98.4 98.4 Physical Exam General: Other Heart: Regular rate, Normal S1, Normal S2 Lungs: Clear Abdomen: Normal bowel sounds, Soft Extremities: No cyanosis Skin: No rashes, Other Labs LABS Laboratory Tests Test 07/03/18 03:50 White Blood Count 17.3 x10^3/uL (4.0-11.0) Red Blood Count 3.31 x10^6/uL (4.30-5.70) Hemoglobin 10.2 g/dL (13.0-17.5) Hematocrit 31.5 % (39.0-53.0) Mean Corpuscular Volume 95 fL (79-100) Mean Corpuscular Hemoglobin 31 pg (25-35) Mean Corpuscular Hemoglobin Concent 32 g/dL (31-37) Red Cell Distribution Width 18.1 % (11.5-14.5) Platelet Count 332 x10^3/uL (140-400) Sodium Level 134 mmol/L (136-145) Potassium Level 4.1 mmol/L (3.5-5.1) Chloride Level 96 mmol/L (98-107) Carbon Dioxide Level 26 mmol/L (21-32) Anion Gap 12 (6-14) Blood Urea Nitrogen 30 mg/dL (8-26) Creatinine 6.9 mg/dL (0.7-1.3) Estimated GFR (Cockcroft-Gault) 8.7 Glucose Level 113 mg/dL (70-99) Calcium Level 7.7 mg/dL (8.5-10.1) Phosphorus Level 6.9 mg/dL (2.6-4.7) Albumin 2.0 g/dL (3.4-5.0) Review of Systems Review of Systems Unable to obtain Assessment and Plan Assessmemt and Plan Problems Medical Problems: (1) Hypertension Status: Acute Respiratory failure Seizures 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 Labs Laboratory Tests Test 07/02/18 08:10 07/03/18 03:50 O2 Saturation 97 % (92-99) Arterial Blood pH 7.46 (7.35-7.45) Arterial Blood pCO2 at Patient Temp 37 mmHg (35-46) Arterial Blood pO2 at Patient Temp 90 mmHg (75-108) Arterial Blood HCO3 26 mmol/L (21-28) Arterial Blood Base Excess 2 mmol/L (-3-3) FiO2 40 White Blood Count 17.3 x10^3/uL (4.0-11.0) Red Blood Count 3.31 x10^6/uL (4.30-5.70) Hemoglobin 10.2 g/dL (13.0-17.5) Hematocrit 31.5 % (39.0-53.0) Mean Corpuscular Volume 95 fL (79-100) Mean Corpuscular Hemoglobin 31 pg (25-35) Mean Corpuscular Hemoglobin Concent 32 g/dL (31-37) Red Cell Distribution Width 18.1 % (11.5-14.5) Platelet Count 332 x10^3/uL (140-400) Sodium Level 134 mmol/L (136-145) Potassium Level 4.1 mmol/L (3.5-5.1) Chloride Level 96 mmol/L (98-107) Carbon Dioxide Level 26 mmol/L (21-32) Anion Gap 12 (6-14) Blood Urea Nitrogen 30 mg/dL (8-26) Creatinine 6.9 mg/dL (0.7-1.3) Estimated GFR (Cockcroft-Gault) 8.7 Glucose Level 113 mg/dL (70-99) Calcium Level 7.7 mg/dL (8.5-10.1) Phosphorus Level 6.9 mg/dL (2.6-4.7) Albumin 2.0 g/dL (3.4-5.0) Laboratory Tests Test 07/03/18 03:50 White Blood Count 17.3 x10^3/uL (4.0-11.0) Red Blood Count 3.31 x10^6/uL (4.30-5.70) Hemoglobin 10.2 g/dL (13.0-17.5) Hematocrit 31.5 % (39.0-53.0) Mean Corpuscular Volume 95 fL (79-100) Mean Corpuscular Hemoglobin 31 pg (25-35) Mean Corpuscular Hemoglobin Concent 32 g/dL (31-37) Red Cell Distribution Width 18.1 % (11.5-14.5) Platelet Count 332 x10^3/uL (140-400) Sodium Level 134 mmol/L (136-145) Potassium Level 4.1 mmol/L (3.5-5.1) Chloride Level 96 mmol/L (98-107) Carbon Dioxide Level 26 mmol/L (21-32) Anion Gap 12 (6-14) Blood Urea Nitrogen 30 mg/dL (8-26) Creatinine 6.9 mg/dL (0.7-1.3) Estimated GFR (Cockcroft-Gault) 8.7 Glucose Level 113 mg/dL (70-99) Calcium Level 7.7 mg/dL (8.5-10.1) Phosphorus Level 6.9 mg/dL (2.6-4.7) Albumin 2.0 g/dL (3.4-5.0) Microbiology 06/30/18 Urine Culture - Final, Complete 06/30/18 Urine Culture Result 1 (LINH) - Final, Complete Medications Current Medications Morphine Sulfate (Morphine Sulfate) 4 mg 1X ONCE IV Last administered on 06/29/18at 11:40; Start 06/29/18 at 11:30; Stop 06/29/18 at 11:31; Status DC Ondansetron HCl (Zofran) 4 mg 1X ONCE IV Last administered on 06/29/18at 11:44; Start 06/29/18 at 11:45; Stop 06/29/18 at 11:46; Status DC Ondansetron HCl (Zofran) 4 mg STK-MED ONCE .ROUTE ; Start 06/29/18 at 11:43; Stop 06/29/18 at 11:44; Status DC Ondansetron HCl (Zofran) 4 mg PRN Q8HRS PRN IV NAUSEA/VOMITING; Start 06/29/18 at 12:15; Stop 06/30/18 at 12:14; Status DC Morphine Sulfate (Morphine Sulfate) 4 mg 1X ONCE IV Last administered on 06/29/18 13:25; Start 06/29/18 at 13:30; Stop 06/29/18 at 13:31; Status DC Clonidine HCl (Catapres) 0.1 mg BID PO Last administered on 07/03/18 08:07; Start 06/29/18 at 21:00 Cyanocobalamin (Vitamin B-12) 1,000 mcg DAILY PO Last administered on 07/03/18 08:05; Start 06/29/18 at 16:30 Sevelamer Carbonate (Renvela) 800 mg TIDWMEALS PO Last administered on 07/03/18 08:05; Start 06/29/18 at 17:00 Hydrocortisone (Cortef) 20 mg DAILYWBKFT PO Last administered on 07/02/18 08:55; Start 06/29/18 at 16:30; Stop 07/02/18 at 09:53; Status DC Multivitamins (Thera M Plus) 1 tab DAILY PO Last administered on 07/03/18 08:05; Start 06/29/18 at 16:30 Olanzapine (ZyPREXA) 20 mg QHS PO Last administered on 07/02/18 20:57; Start 06/29/18 at 21:00 Pantoprazole Sodium (Protonix) 40 mg DAILYAC PO Last administered on 06/29/18 18:31; Start 06/29/18 at 16:30; Stop 07/01/18 at 07:33; Status DC Heparin Sodium (Porcine) (Heparin Sodium) 5,000 unit Q8HRS SQ Last administered on 07/03/18 06:36; Start 06/29/18 at 22:00 Acetaminophen (Tylenol) 650 mg 1X ONCE PO Last administered on 06/29/18 18:32; Start 06/29/18 at 16:30; Stop 06/29/18 at 16:31; Status DC Oxycodone/ Acetaminophen (Percocet 5/325) 1 tab PRN Q4HRS PRN PO PAIN Last administered on 07/03/18at 02:51; Start 06/29/18 at 20:00 Iohexol (Omnipaque 350 Mg/ml) 75 ml 1X ONCE IV Last administered on 06/29/18at 21:01; Start 06/29/18 at 21:00; Stop 06/29/18 at 21:03; Status DC Labetalol HCl (Normodyne Iv Push) 10 mg PRN Q10MIN PRN IVP HYPERTENSION, SEE COMMENTS; Start 06/29/18 at 21:15 Acetaminophen (Tylenol) 650 mg PRN Q6HRS PRN PO TEMP > 100.4F; Start 06/29/18 at 21:15 Acetaminophen (Tylenol Supp) 650 mg PRN Q4HRS PRN CA TEMP > 100.4F; Start 06/29/18 at 21:15 Aspirin (Ecotrin) 325 mg DAILYWBKFT PO Last administered on 07/03/18at 08:05; Start 06/30/18 at 08:00 Aspirin (Aspirin Rectal Supp) 300 mg PRN DAILY PRN CA IF UNABLE TO TAKE PO; Start 06/29/18 at 21:15 Morphine Sulfate (Morphine Sulfate) 2 mg PRN Q2HR PRN IV SEVERE PAIN Last administered on 07/02/18at 09:35; Start 06/29/18 at 22:30 Levetiracetam 500 mg/Dextrose 105 ml @ 420 mls/hr Q12HR IV Last administered on 07/03/18at 08:04; Start 06/30/18 at 00:00 Levetiracetam 1000 mg/Dextrose 110 ml @ 440 mls/hr 1X ONCE IV Last administered on 06/30/18at 02:25; Start 06/30/18 at 02:30; Stop 06/30/18 at 02:44; Status DC Lorazepam (Ativan) 1 mg PRN Q2HRS PRN IV TREMORS; Start 06/30/18 at 02:00 Fosphenytoin Sodium 1390 mg/ Sodium Chloride 77.8 ml @ 311.2 mls/ hr 1X ONCE IV Last administered on 06/30/18at 04:44; Start 06/30/18 at 05:00; Stop 06/30/18 at 05:14; Status DC Propofol 100 ml @ As Directed STK-MED ONCE IV ; Start 06/30/18 at 05:58; Stop 06/30/18 at 05:59; Status DC Succinylcholine Chloride (Anectine) 200 mg STK-MED ONCE .ROUTE ; Start 06/30/18 at 05:59; Stop 06/30/18 at 06:00; Status DC Propofol 100 ml @ 1.39 mls/hr 1X ONCE IV Last administered on 06/30/18at 06:30; Start 06/30/18 at 06:30; Stop 07/01/18 at 17:31; Status DC Succinylcholine Chloride (Anectine) 200 mg 1X ONCE IV Last administered on 06/30/18at 06:21; Start 06/30/18 at 06:30; Stop 06/30/18 at 06:31; Status DC Propofol 100 ml @ 0 mls/hr CONT PRN IV SEE I/O RECORD Last administered on 07/03/18at 02:50; Start 06/30/18 at 06:30 Fentanyl Citrate 30 ml @ 0 mls/hr CONT PRN IV SEE PROTOCOL; Start 06/30/18 at 06:30 Midazolam HCl 100 ml @ 0 mls/hr CONT PRN IV SEE PROTOCOL; Start 06/30/18 at 06:30 Fosphenytoin Sodium (Cerebyx) 100 mg Q8HRS IV Last administered on 07/03/18at 06:27; Start 06/30/18 at 14:00 Hydrocortisone Sodium Succinate (Solu-CORTEF) 100 mg Q8HRS IV Last administered on 07/03/18at 06:26; Start 06/30/18 at 14:00 Lansoprazole (Prevacid) 30 mg DAILYAC NG Last administered on 07/03/18at 08:05; Start 07/01/18 at 07:30 Sodium Chloride 1,000 ml @ 1,000 mls/hr Q1H PRN IV hypotension; Start 07/01/18 at 08:00; Stop 07/01/18 at 18:00; Status DC Albumin Human 200 ml @ 200 mls/hr 1X PRN PRN IV Hypotension; Start 07/01/18 at 08:00; Stop 07/01/18 at 18:00; Status DC Acetaminophen (Tylenol) 500 mg 1X PRN PRN PO MILD PAIN / TEMP; Start 07/01/18 at 07:45; Stop 07/01/18 at 18:00; Status DC Diphenhydramine HCl (Benadryl) 25 mg 1X PRN PRN IV ITCHING; Start 07/01/18 at 07:45; Stop 07/01/18 at 18:00; Status DC Diphenhydramine HCl (Benadryl) 25 mg 1X PRN PRN IV ITCHING; Start 07/01/18 at 07:45; Stop 07/01/18 at 18:00; Status DC Sodium Chloride (Normal Saline Flush) 10 ml 1X PRN PRN IV AP catheter pack; Start 07/01/18 at 07:45; Stop 07/01/18 at 18:00; Status DC Sodium Chloride (Normal Saline Flush) 10 ml 1X PRN PRN IV [employer] catheter pack; Start 07/01/18 at 07:45; Stop 07/01/18 at 18:00; Status DC Sodium Chloride 1,000 ml @ 400 mls/hr Q2H30M PRN IV PATENCY; Start 07/01/18 at 08:00; Stop 07/01/18 at 18:00; Status DC Info (PHARMACY MONITORING -- do not chart) 1 each PRN DAILY PRN MC SEE COMMENTS; Start 07/01/18 at 08:00 Gentamicin Sulfate (Gentak) 0.25 inch BID66 OU ; Start 07/02/18 at 23:00; Status Cancel Tobramycin Sulfate (Tobrex Ophth Soln) 2 drop Q4HRS OU Last administered on 07/03/18at 08:06; Start 07/03/18 at 00:00 Active Scripts Active Clonidine Hcl 0.1 Mg Tablet 0.1 Mg PO BID [Pantoprazole] 40 MG Tablet.dr 40 Mg PO DAILYAC MDD 1 Renvela (Sevelamer Carbonate) 800 Mg Tablet 800 Mg PO TIDWMEALS MDD 1 Reported Multivitamins (Multivitamin) 1 Each Tablet 1 Tab PO DAILY Vitamin B-12 (Cyanocobalamin (Vitamin B-12)) 1,000 Mcg Tablet 1 Tab PO DAILY Olanzapine 20 Mg Tablet 20 Mg PO QHS Cortef (Hydrocortisone) 20 Mg Tablet 20 Mg PO DAILY Vitals/I & O Vital Sign - Last 24 Hours 07/02/18 07/02/18 07/02/18 07/02/18 11:40 12:00 12:00 13:00 Temp 98.5 98.5 Pulse 69 71 Resp 16 16 B/P (MAP) 92/70 (77) 92/66 (75) Pulse Ox 100 100 100 O2 Delivery Ventilator Mechanical Ventilator Ventilator Ventilator 07/02/18 07/02/18 07/02/18 07/02/18 13:58 14:00 15:00 15:16 Temp 98.4 98.4 Pulse 70 72 Resp 16 16 B/P (MAP) 99/74 (82) 91/59 (70) Pulse Ox 100 100 100 100 O2 Delivery Ventilator Ventilator Ventilator Ventilator 07/02/18 07/02/18 07/02/18 07/02/18 16:00 16:00 17:00 17:42 Pulse 69 74 Resp 16 16 B/P (MAP) 98/67 (77) 100/69 (79) Pulse Ox 100 100 100 O2 Delivery Mechanical Ventilator Ventilator Ventilator Ventilator 07/02/18 07/02/18 07/02/18 07/02/18 18:00 19:00 19:44 20:00 Pulse 72 74 Resp 16 16 B/P (MAP) 105/75 (85) 109/78 (88) Pulse Ox 100 100 100 O2 Delivery Ventilator Ventilator Ventilator Mechanical Ventilator 07/02/18 07/02/18 07/02/18 07/02/18 20:00 21:00 21:00 22:00 Temp 98.8 98.8 Pulse 78 64 76 68 Resp 16 16 16 B/P (MAP) 108/78 (88) 95/61 106/75 (85) 110/78 (89) Pulse Ox 100 100 100 O2 Delivery Ventilator Ventilator Ventilator 07/02/18 07/02/18 07/02/18 07/03/18 22:01 23:00 23:41 00:00 Pulse 89 Resp 16 16 B/P (MAP) 101/72 (82) Pulse Ox 100 100 100 O2 Delivery Ventilator Ventilator Mechanical Ventilator 07/03/18 07/03/18 07/03/18 07/03/18 00:01 01:00 02:00 02:51 Temp 98.1 98.1 Pulse 64 66 65 Resp 16 16 16 16 B/P (MAP) 95/61 (72) 92/61 (71) 98/66 (77) Pulse Ox 100 100 100 100 O2 Delivery Ventilator Ventilator Ventilator Ventilator 07/03/18 07/03/18 07/03/18 07/03/18 03:00 03:41 03:51 04:00 Temp 97.1 97.1 Pulse 66 73 Resp 16 16 16 B/P (MAP) 105/71 (82) 116/73 (87) Pulse Ox 100 100 100 100 O2 Delivery Ventilator Ventilator Ventilator Ventilator 07/03/18 07/03/18 07/03/18 07/03/18 04:00 05:00 06:00 06:04 Pulse 72 74 Resp 16 16 B/P (MAP) 120/80 (93) 116/72 (87) Pulse Ox 100 100 100 O2 Delivery Mechanical Ventilator Ventilator Ventilator Ventilator 07/03/18 07/03/18 07/03/18 07/03/18 07:00 07:31 08:00 08:00 Temp 98.4 98.4 Pulse 69 70 Resp 19 16 B/P (MAP) 132/85 (101) 119/83 (95) Pulse Ox 100 100 100 O2 Delivery Ventilator Ventilator Mechanical Ventilator Ventilator 07/03/18 07/03/18 07/03/18 07/03/18 08:07 09:00 10:00 11:00 Pulse 70 70 77 77 Resp 16 19 15 B/P (MAP) 119/83 125/84 (98) 117/80 (92) 140/92 (108) Pulse Ox 99 100 100 O2 Delivery Ventilator Ventilator Ventilator Intake and Output 07/02/18 07/02/18 07/03/18 15:00 23:00 07:00 Intake Total 105 ml 1440 ml 1171.2 ml Output Total 15 ml 91 ml 120 ml Balance 90 ml 1349 ml 1051.2 ml SILVANO HARDY III DO July 03, 2018 11:14
[2018-07-03 11:21] LABS: BASE EXCESS ABG 5 mmol/L (-3-3); HCO3 ABG 29 mmol/L (21-28); PCO2 ABG 41 mmHg (35-46); PO2 ABG 115 mmHg (75-108); SAT O2 ABG 98 % (92-99)
[2018-07-03 11:23] LABS: FIO2 ABG 40
--- NOTE | 2018-07-03 11:39 | NUR ---
SS following up with discharge planning. Complete referral for [facility]PH[facility] was ph[facility], ext [phone]; fax [phone]. [facility], Deana Callaway, [phone], following for self pay status.
--- NOTE | 2018-07-03 15:33 | PDOC ---
PROGRESS NOTES Assessment Assessment IMPRESSION: PRES. Hypertensive emergency, BP 212/133 mmHg. Seizure. Metabolic encephalopathy. Vision loss. Petechial cerebral hemorrhage. Renal failure. UTI? Pleural effusion. Anemia. Hypocalcemia. Schizophrenia. Bipolar disorder. RECOMMENDATIONS/PLAN: ASA 325 mg daily, OK. Continue Keppra 500 mg bid. BP control. Treat medical diseases. OT/PT. Past Medical History GI: Hemorrhoids, Other (diarrhea) Heme/Onc: Cancer (thyroid (Para?)) Psych: Anxiety, Depression, Schizophrenia Renal/: Acute renal failure Endocrine: Other (Arron's disease) Past Surgical History Cholecystectomy, Other (cervical fusion, left knee, parathyroidectomy) Family History Hypertension Social History He is homeless, he denied earlier having use of alcohol, tobacco, or street drugs. ROS Negative for fever, chills, weight loss, shortness of breath, chest pain, indigestion, hematochezia, melena, and dysuria. Full 14-point review of systems is negative. ALLERGY: NKDA MEDICATIONS: Refer to MAR PHYSICAL EXAMINATION: General appearance in subacute distress. HEENT: Normocephalic and nontraumatic. Eyes, nose, ears, and throat are unremarkable. Neck is supple. No lymphadenopathy. No Crepitus. Cardiovascular: S1, S2, regular rate and rhythm. Pulmonary: Decreased to auscultation bilaterally. Abdomen: Bowel sounds are positive. Extremities: No rash, lesions, or edema. No restriction of range of motion NEUROLOGICAL EXAMINATION: [place] [id number]. Not oriented to time, place and person. PERRL. EOMI. CN: no focal findings. Muscle tone: within normal. Muscle strength: Moves all extremities to stimuli. DTR: 1-2 Plantar reflex: Neutral response bilaterally Gait: Not able to walk in this mentation. Sensory exam: Withdraw response noted. Not able to access cerebellar signs this time. F-T-N test not performed due to not follow commands. Objective Objective Vital Signs Date Time Temp Pulse Resp B/P (MAP) Pulse Ox O2 Delivery O2 Flow Rate FiO2 07/03/18 15:00 98.6 75 8 138/86 (103) 98 Room Air 98.6 07/03/18 12:00 3.0 Intake and Output 07/03/18 07:00 Intake Total 2716.2 ml Output Total 226 ml Balance 2490.2 ml IV Total 585.2 ml Tube Feeding 1330 ml Blood Product IV Normal Saline Flush 101 ml Other 700 ml Output Urine Total 226 ml Gastric Drainage Total 0 ml Vitals Signs Vitals VS - Last 72 Hours, by Label Date Time Temp Pulse Resp B/P (MAP) Pulse Ox O2 Delivery O2 Flow Rate FiO2 07/03/18 15:00 98.6 75 8 138/86 (103) 98 Room Air 98.6 07/03/18 14:00 76 8 139/90 (106) 98 Room Air 07/03/18 13:00 87 11 130/85 (100) 99 Room Air 07/03/18 12:00 71 14 134/88 (103) 100 Nasal Cannula 3.0 07/03/18 12:00 Nasal Cannula 3.0 07/03/18 11:35 Nasal Cannula 3.0 07/03/18 11:00 77 15 140/92 (108) 100 Ventilator 07/03/18 10:30 Ventilator 07/03/18 10:00 77 19 117/80 (92) 100 Ventilator 07/03/18 09:30 100 Ventilator 07/03/18 09:00 70 16 125/84 (98) 99 Ventilator 07/03/18 08:07 70 119/83 07/03/18 08:00 70 16 119/83 (95) 100 Ventilator 07/03/18 08:00 Mechanical Ventilator 07/03/18 07:31 100 Ventilator 07/03/18 07:00 98.4 69 19 132/85 (101) 100 Ventilator 98.4 07/03/18 06:04 100 Ventilator 07/03/18 06:00 74 16 116/72 (87) 100 Ventilator 07/03/18 05:00 72 16 120/80 (93) 100 Ventilator 07/03/18 04:00 Mechanical Ventilator 07/03/18 04:00 97.1 73 16 116/73 (87) 100 Ventilator 97.1 07/03/18 03:51 16 100 Ventilator 07/03/18 03:41 100 Ventilator 07/03/18 03:00 66 16 105/71 (82) 100 Ventilator 07/03/18 02:51 16 100 Ventilator 07/03/18 02:00 65 16 98/66 (77) 100 Ventilator 07/03/18 01:00 66 16 92/61 (71) 100 Ventilator 07/03/18 00:01 98.1 64 16 95/61 (72) 100 Ventilator 98.1 07/03/18 00:00 Mechanical Ventilator 07/02/18 23:41 100 Ventilator 07/02/18 23:00 89 16 101/72 (82) 100 Ventilator 07/02/18 22:01 16 100 07/02/18 22:00 68 16 110/78 (89) 100 Ventilator 07/02/18 21:00 76 16 106/75 (85) 100 Ventilator 07/02/18 21:00 64 95/61 07/02/18 20:00 98.8 78 16 108/78 (88) 100 Ventilator 98.8 07/02/18 20:00 Mechanical Ventilator 07/02/18 19:44 100 Ventilator 07/02/18 19:00 74 16 109/78 (88) 100 Ventilator 07/02/18 18:00 72 16 105/75 (85) 100 Ventilator 07/02/18 17:42 100 Ventilator 07/02/18 17:00 74 16 100/69 (79) 100 Ventilator 07/02/18 16:00 69 16 98/67 (77) 100 Ventilator 07/02/18 16:00 Mechanical Ventilator 07/02/18 15:16 100 Ventilator 07/02/18 15:00 98.4 72 16 91/59 (70) 100 Ventilator 98.4 07/02/18 14:00 70 16 99/74 (82) 100 Ventilator 07/02/18 13:58 100 Ventilator 07/02/18 13:00 71 16 92/66 (75) 100 Ventilator 07/02/18 12:00 98.5 69 16 92/70 (77) 100 Ventilator 98.5 07/02/18 12:00 Mechanical Ventilator 07/02/18 11:40 100 Ventilator 07/02/18 11:00 69 16 86/61 (69) 100 Ventilator 07/02/18 10:05 16 100 Ventilator 07/02/18 10:00 73 16 97/71 (80) 100 Ventilator 07/02/18 09:35 16 100 Ventilator 07/02/18 09:00 69 16 112/74 (87) 98 Ventilator 07/02/18 08:50 71 106/69 07/02/18 08:00 Mechanical Ventilator 07/02/18 08:00 71 16 106/69 (81) 100 Ventilator 07/02/18 07:57 100 Ventilator 07/02/18 07:00 98.2 72 16 103/69 (80) 100 Ventilator 98.2 Laboratory Laboratory Laboratory Tests Test 07/03/18 03:50 07/03/18 11:10 White Blood Count 17.3 x10^3/uL (4.0-11.0) Red Blood Count 3.31 x10^6/uL (4.30-5.70) Hemoglobin 10.2 g/dL (13.0-17.5) Hematocrit 31.5 % (39.0-53.0) Mean Corpuscular Volume 95 fL (79-100) Mean Corpuscular Hemoglobin 31 pg (25-35) Mean Corpuscular Hemoglobin Concent 32 g/dL (31-37) Red Cell Distribution Width 18.1 % (11.5-14.5) Platelet Count 332 x10^3/uL (140-400) Sodium Level 134 mmol/L (136-145) Potassium Level 4.1 mmol/L (3.5-5.1) Chloride Level 96 mmol/L (98-107) Carbon Dioxide Level 26 mmol/L (21-32) Anion Gap 12 (6-14) Blood Urea Nitrogen 30 mg/dL (8-26) Creatinine 6.9 mg/dL (0.7-1.3) Estimated GFR (Cockcroft-Gault) 8.7 Glucose Level 113 mg/dL (70-99) Calcium Level 7.7 mg/dL (8.5-10.1) Phosphorus Level 6.9 mg/dL (2.6-4.7) Albumin 2.0 g/dL (3.4-5.0) O2 Saturation 98 % (92-99) Arterial Blood pH 7.47 (7.35-7.45) Arterial Blood pCO2 at Patient Temp 41 mmHg (35-46) Arterial Blood pO2 at Patient Temp 115 mmHg (75-108) Arterial Blood HCO3 29 mmol/L (21-28) Arterial Blood Base Excess 5 mmol/L (-3-3) FiO2 40 Microbiology 06/30/18 Urine Culture - Final, Complete 06/30/18 Urine Culture Result 1 (LINH) - Final, Complete Medication Medications Current Medications Gentamicin Sulfate (Gentak) 0.25 inch [id number] OU ; Start 07/02/18 at 23:00; Status Cancel Tobramycin Sulfate (Tobrex Ophth Soln) 2 drop Q4HRS OU Last administered on 07/03/18at 14:32; Start 07/03/18 at 00:00 Comment Review of Relevant I have reviewed the following items medardo (where applicable) has been applied. ROSHNI BASHIR MD July 03, 2018 15:33
--- NOTE | 2018-07-03 18:21 | NUR ---
Patient extubated at 1135. Patient 96% RA. Bilateral eyes matted closed, cloudy sclera,yellow cloudy drainage. Tobramycin drops, every 4 hours administered to both eyes. Patient states he still cant see out either eyes. This RN held up shapes and ask patient number of fingers. Patient was unable to see shapes or figurers.
[2018-07-03] MEDS ORDERED: MINERAL OIL/PETROLATUM,WHITE OPHTH OINT 3.5GM TUBE. OU PRN (18:45)
--- NOTE | 2018-07-03 19:30 | EEG ---
DATE OF SERVICE: 07/03/2018 EEG NUMBER: [id number] OBJECTIVE: This is a 47-year-old male patient with history seizure and he has of prolonged mental status changes. EEG was requested to evaluate seizure activity. METHODS: Twenty electrodes were applied according to the international 10-20 electrode placement system. EKG monitoring, hyperventilation, intermittent photic stimulation, monopolar and bipolar montages are routinely utilized. The record was obtained on a digital system with video monitoring. FINDINGS: 1. BACKGROUND: The patient was recorded in the unresponsive state. No physiological awake, drowsy, and sleep states was recorded. The overall background amplitude is variable. No posterior dominant rhythm is observed. The overall background rhythm is with diffuse slowing in the theta and delta frequencies throughout the entire recording. 2. Abnormalities: No specific epileptiform discharge or electrographic seizure is seen. Diffuse slowing in the theta and delta frequencies is throughout the entire recording. 3. Activation: Hyperventilation was not performed because patient was on ventilator. Intermittent photic stimulation was performed with photic driving. IMPRESSION: This EEG is an abnormal study for the unresponsive state only. No physiological awake, drowsy, and sleep states were recorded. No awake and sleep differentiation. No posterior dominant rhythm is observed. The overall background rhythm is with diffuse slowing in the theta and delta frequencies throughout the entire recording. No focal, lateralizing, specific epileptiform discharge or electrographic seizure is seen. This pattern of EEG is suggestive of diffuse encephalopathy. ROSHNI BASHIR MD DR: CHERELLE/cody JOB#: [id number] / [id number] ROBIN
[2018-07-03] MEDS: OLANZapine 5 MG TABLET PO SCH ×2 (20:46→21:00)
[2018-07-03] MEDS: MORPHINE SULFATE 2 MG/ML VIAL. IV PRN (21:13)
[2018-07-04] VITALS (15 sets, daily range): BP systolic 125–157; BP diastolic 76–97
[2018-07-04] MEDS: TOBRAMYCIN 0.3% OPHTH SOLUTION 5ML BOTTLE. OU SCH ×5 (04:56→19:49)
[2018-07-04 05:05] LABS: ALBUMIN 1.7 g/dL (3.4-5.0); CALCIUM 7.2 mg/dL (8.5-10.1); CREATININE 8.3 mg/dL (0.7-1.3)
[2018-07-04] MEDS: FOSPHENYTOIN 100 MG/2 ML VIAL. IV SCH ×3 (05:18→22:19)
[2018-07-04] MEDS: HYDROCORTISONE SOD SUCC/PF 100 MG/2 ML VIAL. IV SCH ×3 (05:20→22:19)
[2018-07-04] MEDS: HEPARIN for SUB-Q USE 5,000 UNIT/ML VIAL. SQ SCH ×3 (05:23→22:30)
[2018-07-04] MEDS: LANSOPRAZOLE 30 MG TAB.RAP.DR NG SCH (07:30)
[2018-07-04] MEDS ORDERED: IV NORMAL SALINE 1000ML BAG 1,000 ML IV PRN ×2 (07:47)
[2018-07-04] MEDS ORDERED: diphenhydrAMINE 50 MG/ML VIAL IV PRN ×2 (08:00)
[2018-07-04] MEDS ORDERED: ACETAMINOPHEN 500 MG TABLET PO PRN (08:00)
[2018-07-04] MEDS ORDERED: DIALYSIS PATIENT. MC PRN (08:00)
[2018-07-04] MEDS: SEVELAMER CARBONATE 800 MG TABLET. PO SCH ×3 (08:00→17:39)
[2018-07-04] MEDS ORDERED: 0.9 % SODIUM CHLORIDE 10 ML DISP.SYRIN. IV PRN ×2 (08:00)
[2018-07-04] MEDS ORDERED: ALBUMIN HUMAN 25% 200 ML IV PRN (08:00)
--- NOTE | 2018-07-04 08:36 | NUR ---
IP: Pt is mrsa screen + requiring contact precautions.
--- NOTE | 2018-07-04 08:57 | NUR ---
Patient reported "good night." Patient has a flat affect , unable see shapes or numbers bilaterally. Sclera edema and discharge has decreased. Pupils are brisk, PERRL. Continue artificial tears, Tobramycin drops, and warm compresses.
[2018-07-04] MEDS: CYANOCOBALAMIN (VITAMIN B-12) 1,000 MCG TABLET. PO SCH (09:00)
[2018-07-04] MEDS: MULTIVITAMIN with MINERAL TABLET. PO SCH (09:00)
--- NOTE | 2018-07-04 09:47 | PDOC ---
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 OBJECTIVE Vital Signs Vital Signs Date Time Temp Pulse Resp B/P (MAP) Pulse Ox O2 Delivery O2 Flow Rate FiO2 07/04/18 08:00 Room Air 07/04/18 08:00 81 13 133/77 (95) 95 07/04/18 07:00 98.0 98.0 07/03/18 12:00 3.0 I & 0 Intake and Output 07/04/18 07:00 Intake Total 385 ml Output Total 1050 ml Balance -665 ml Intake Oral 0 ml IV Total 165 ml Tube Feeding 175 ml Other 45 ml Output Urine Total 1050 ml Gastric Drainage Total 0 ml PHYSICAL EXAM Physical Exam General Extubated, NAD HEENT: OM moist Neck: Supple Lungs- CTA bilat CV RRR Ext- No LE edema Gu- has Pete Neuro- Alert DIAGNOSIS/ASSESSMENT Assessment & Plan New ESRD - S/P Renal Bx 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 UOP improved some, monitor Seen on HD , tolerating well Continue as ordered, 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 Good pasture's syndrome- post renal Bx , results obtained earlier this week No Obvious Lung involvement Anti GBM positive, ANCA Malignant HTN - Controlled now Seizures - No recent Sz activity per neurology Posterior reversible encephalopathy syndrome,(PRES) Neurology following Serologies pending to rule out associated Vasculitis Anemia - Hgb improved Monitor HEP B- Positive Ab, repeat negative 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 Per primary COMMENT/RELEVANT DATA Meds Current Medications Medications (Trade) Dose Ordered Sig/Essence Start Time Stop Time Status Last Admin Dose Admin Acetaminophen (Tylenol Supp) 650 mg PRN Q4HRS PRN 06/29/18 21:15 Acetaminophen (Tylenol) 500 mg 1X PRN PRN 07/04/18 08:00 07/05/18 07:59 Albumin Human 200 ml @ 200 mls/hr 1X PRN PRN 07/04/18 08:00 07/04/18 13:59 Aspirin (Aspirin Rectal Supp) 300 mg PRN DAILY PRN 06/29/18 21:15 Aspirin (Ecotrin) 325 mg DAILYWBKFT 06/30/18 08:00 07/03/18 08:05 325 MG Clonidine HCl (Catapres) 0.1 mg BID 06/29/18 21:00 07/03/18 08:07 0.1 MG Cyanocobalamin (Vitamin B-12) 1,000 mcg DAILY 06/29/18 16:30 07/03/18 08:05 1,000 MCG Diphenhydramine HCl (Benadryl) 25 mg 1X PRN PRN 07/04/18 08:00 07/05/18 07:59 Fentanyl Citrate 30 ml @ 0 mls/hr CONT PRN 06/30/18 06:30 07/03/18 17:50 DC Fosphenytoin Sodium (Cerebyx) 100 mg Q8HRS 06/30/18 14:00 07/04/18 05:18 100 MG Fosphenytoin Sodium 1390 mg/ Sodium Chloride 77.8 ml @ 311.2 mls/ hr 1X ONCE 06/30/18 05:00 06/30/18 05:14 DC 06/30/18 04:44 311.2 MLS/HR Gentamicin Sulfate (Gentak) 0.25 inch [id number] 07/02/18 23:00 Cancel Heparin Sodium (Porcine) (Heparin Sodium) 5,000 unit Q8HRS 06/29/18 22:00 07/04/18 05:23 5,000 UNIT Hydrocortisone (Cortef) 20 mg DAILYWBKFT 06/29/18 16:30 07/02/18 09:53 DC 07/02/18 08:55 20 MG Hydrocortisone Sodium Succinate (Solu-CORTEF) 100 mg Q8HRS 06/30/18 14:00 07/04/18 05:20 100 MG Info (PHARMACY MONITORING -- do not chart) 1 each PRN DAILY PRN 07/04/18 08:00 Iohexol (Omnipaque 350 Mg/ml) 75 ml 1X ONCE 06/29/18 21:00 06/29/18 21:03 DC 06/29/18 21:01 75 ML Labetalol HCl (Normodyne Iv Push) 10 mg PRN Q10MIN PRN 06/29/18 21:15 Lansoprazole (Prevacid) 30 mg DAILYAC 07/01/18 07:30 07/03/18 08:05 30 MG Levetiracetam 1000 mg/Dextrose 110 ml @ 440 mls/hr 1X ONCE 06/30/18 02:30 06/30/18 02:44 DC 06/30/18 02:25 440 MLS/HR Levetiracetam 500 mg/Dextrose 105 ml @ 420 mls/hr Q12HR 06/30/18 00:00 07/03/18 20:47 420 MLS/HR Lorazepam (Ativan) 1 mg PRN Q2HRS PRN 06/30/18 02:00 Midazolam HCl 100 ml @ 0 mls/hr CONT PRN 06/30/18 06:30 07/03/18 17:50 DC Morphine Sulfate (Morphine Sulfate) 2 mg PRN Q2HR PRN 06/29/18 22:30 07/03/18 21:13 2 MG Multi-Ingred Cream/Lotion/Oil/ Oint (Artificial Tears Eye Ointment) 1 juliette PRN Q1HR PRN 07/03/18 18:45 Multivitamins (Thera M Plus) 1 tab DAILY 06/29/18 16:30 07/03/18 08:05 1 TAB Olanzapine (ZyPREXA) 20 mg QHS 06/29/18 21:00 07/02/18 20:57 20 MG Ondansetron HCl (Zofran) 4 mg PRN Q8HRS PRN 06/29/18 12:15 06/30/18 12:14 DC Oxycodone/ Acetaminophen (Percocet 5/325) 1 tab PRN Q4HRS PRN 06/29/18 20:00 07/03/18 02:51 1 TAB Pantoprazole Sodium (Protonix) 40 mg DAILYAC 06/29/18 16:30 07/01/18 07:33 DC 06/29/18 18:31 40 MG Propofol 100 ml @ 0 mls/hr CONT PRN 06/30/18 06:30 07/03/18 02:50 16.682 MLS/HR Sevelamer Carbonate (Renvela) 800 mg TIDWMEALS 06/29/18 17:00 07/03/18 08:05 800 MG Sodium Chloride 1,000 ml @ 400 mls/hr Q2H30M PRN 07/04/18 07:47 07/04/18 19:46 Sodium Chloride (Normal Saline Flush) 10 ml 1X PRN PRN 07/04/18 08:00 07/05/18 07:59 Succinylcholine Chloride (Anectine) 200 mg 1X ONCE 06/30/18 06:30 06/30/18 06:31 DC 06/30/18 06:21 200 MG Tobramycin Sulfate (Tobrex Ophth Soln) 2 drop Q4HRS 07/03/18 00:00 07/04/18 04:56 2 DROP Lab Laboratory Tests Test 07/03/18 10:00 07/03/18 11:10 07/04/18 04:00 Nasal Screen MRSA (PCR) Positive (Negative) O2 Saturation 98 % (92-99) Arterial Blood pH 7.47 (7.35-7.45) Arterial Blood pCO2 at Patient Temp 41 mmHg (35-46) Arterial Blood pO2 at Patient Temp 115 mmHg (75-108) Arterial Blood HCO3 29 mmol/L (21-28) Arterial Blood Base Excess 5 mmol/L (-3-3) FiO2 40 Sodium Level 135 mmol/L (136-145) Potassium Level 4.0 mmol/L (3.5-5.1) Chloride Level 97 mmol/L (98-107) Carbon Dioxide Level 27 mmol/L (21-32) Anion Gap 11 (6-14) Blood Urea Nitrogen 41 mg/dL (8-26) Creatinine 8.3 mg/dL (0.7-1.3) Estimated GFR (Cockcroft-Gault) 7.0 Glucose Level 100 mg/dL (70-99) Calcium Level 7.2 mg/dL (8.5-10.1) Phosphorus Level 7.0 mg/dL (2.6-4.7) Albumin 1.7 g/dL (3.4-5.0) Results All relevant outside records, renal labs, imaging studies, telemetry/EKG's were reviewed. EDEL ADKINS MD July 04, 2018 09:47
[2018-07-04] MEDS: MORPHINE SULFATE 2 MG/ML VIAL. IV PRN ×3 (10:21→19:51)
--- NOTE | 2018-07-04 10:52 | PDOC ---
PULMONARY PROGRESS NOTES Subjective DID WELL ON TRIAL 07/03 EXTUBATED 07/03 ON RA Vitals Vital Signs Date Time Temp Pulse Resp B/P (MAP) Pulse Ox O2 Delivery O2 Flow Rate FiO2 07/04/18 10:21 13 94 Room Air 3.0 07/04/18 10:00 70 131/76 (94) 07/04/18 07:00 98.0 98.0 General: Alert, No acute distress Lungs: Clear Cardiovascular: S1, S2 Abdomen: Soft Neuro Exam: Alert Extremities: Other (EDEMA) Labs Laboratory Tests Test 07/03/18 03:50 07/03/18 10:00 07/03/18 11:10 07/04/18 04:00 White Blood Count 17.3 x10^3/uL (4.0-11.0) Red Blood Count 3.31 x10^6/uL (4.30-5.70) Hemoglobin 10.2 g/dL (13.0-17.5) Hematocrit 31.5 % (39.0-53.0) Mean Corpuscular Volume 95 fL (79-100) Mean Corpuscular Hemoglobin 31 pg (25-35) Mean Corpuscular Hemoglobin Concent 32 g/dL (31-37) Red Cell Distribution Width 18.1 % (11.5-14.5) Platelet Count 332 x10^3/uL (140-400) Sodium Level 134 mmol/L (136-145) 135 mmol/L (136-145) Potassium Level 4.1 mmol/L (3.5-5.1) 4.0 mmol/L (3.5-5.1) Chloride Level 96 mmol/L (98-107) 97 mmol/L (98-107) Carbon Dioxide Level 26 mmol/L (21-32) 27 mmol/L (21-32) Anion Gap 12 (6-14) 11 (6-14) Blood Urea Nitrogen 30 mg/dL (8-26) 41 mg/dL (8-26) Creatinine 6.9 mg/dL (0.7-1.3) 8.3 mg/dL (0.7-1.3) Estimated GFR (Cockcroft-Gault) 8.7 7.0 Glucose Level 113 mg/dL (70-99) 100 mg/dL (70-99) Calcium Level 7.7 mg/dL (8.5-10.1) 7.2 mg/dL (8.5-10.1) Phosphorus Level 6.9 mg/dL (2.6-4.7) 7.0 mg/dL (2.6-4.7) Albumin 2.0 g/dL (3.4-5.0) 1.7 g/dL (3.4-5.0) Nasal Screen MRSA (PCR) Positive (Negative) O2 Saturation 98 % (92-99) Arterial Blood pH 7.47 (7.35-7.45) Arterial Blood pCO2 at Patient Temp 41 mmHg (35-46) Arterial Blood pO2 at Patient Temp 115 mmHg (75-108) Arterial Blood HCO3 29 mmol/L (21-28) Arterial Blood Base Excess 5 mmol/L (-3-3) FiO2 40 Laboratory Tests Test 07/03/18 11:10 07/04/18 04:00 O2 Saturation 98 % (92-99) Arterial Blood pH 7.47 (7.35-7.45) Arterial Blood pCO2 at Patient Temp 41 mmHg (35-46) Arterial Blood pO2 at Patient Temp 115 mmHg (75-108) Arterial Blood HCO3 29 mmol/L (21-28) Arterial Blood Base Excess 5 mmol/L (-3-3) FiO2 40 Sodium Level 135 mmol/L (136-145) Potassium Level 4.0 mmol/L (3.5-5.1) Chloride Level 97 mmol/L (98-107) Carbon Dioxide Level 27 mmol/L (21-32) Anion Gap 11 (6-14) Blood Urea Nitrogen 41 mg/dL (8-26) Creatinine 8.3 mg/dL (0.7-1.3) Estimated GFR (Cockcroft-Gault) 7.0 Glucose Level 100 mg/dL (70-99) Calcium Level 7.2 mg/dL (8.5-10.1) Phosphorus Level 7.0 mg/dL (2.6-4.7) Albumin 1.7 g/dL (3.4-5.0) Medications Active Scripts Medications Dose Route/Sig Max Daily Dose Days Date Category Clonidine Hcl 0.1 Mg Tablet 0.1 Mg PO BID 06/27/18 Rx [Pantoprazole] 40 MG Tablet.dr 40 Mg PO DAILYAC MDD 1 06/27/18 Rx Renvela (Sevelamer Carbonate) 800 Mg Tablet 800 Mg PO TIDWMEALS MDD 1 06/27/18 Rx Multivitamins (Multivitamin) 1 Each Tablet 1 Tab PO DAILY 06/23/18 Reported Vitamin B-12 (Cyanocobalamin (Vitamin B-12)) 1,000 Mcg Tablet 1 Tab PO DAILY 06/23/18 Reported Olanzapine 20 Mg Tablet 20 Mg PO QHS 06/23/18 Reported Cortef (Hydrocortisone) 20 Mg Tablet 20 Mg PO DAILY 06/22/18 Reported Impression . IMPRESSION: 1. Acute respiratory failure secondary to seizures. 2. Posterior reversible encephalopathy syndrome related to hypertension and renal insufficiency. 3. Encephalopathy. 4. End-stage renal disease. 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 Schizophrenia. 6. Hepatitis B positive antibodies. 7. Tobacco abuse. 8. Noncompliance. 9. PRES ON MRI BRAIN Plan . DID WLL ON TRIAL EXTUBATED 07/03 SPEECH EVAL TODAY HD PER RENAL FOLLOW NEURO FOLLOW SEROLOGY TRANSFER TO FLOOR HILARY STERN MD July 04, 2018 10:52
--- NOTE | 2018-07-04 11:18 | NUR ---
SS following up with discharge planning. SS spoke with Wild at [facility]. Wild reported that pt was denied for a chair time due to no financial resources. She reported that since [facility] is assisting with medicaid application she will reopen referral and requested that SS fax her a copy of pt's medicaid application. [facility] notified. SS will await medicaid application and will fax to [facility] once received.
[2018-07-04] MEDS: ASPIRIN ENTERIC COATED 325 MG TABLET.DR. PO SCH (11:49)
[2018-07-04] MEDS: cloNIDine HCL 0.1 MG TABLET PO SCH ×2 (11:50→21:40)
[2018-07-04] MEDS: levETIRAcetam 500 MG in IV DEXTROSE 5% 100ML 100 ML IV SCH ×2 (11:51→21:39)
--- NOTE | 2018-07-04 12:44 | NUR ---
Pete removed [id number].
[2018-07-04] MEDS: oxyCODONE/APAP 5/325 1 TAB TABLET PO PRN (15:17)
--- NOTE | 2018-07-04 16:04 | PDOC ---
[employer] PROGRESS NOTE Chief Complaint Chief Complaint Respiratory failure Blindness Seizures Goodpasture's disease newly diagnosed Newly started on dialysis Noncompliance [place]'s Hep B Malignant HTN Posterior reversible encephalopathy syndrome History of Present Illness History of Present Illness Patient seen and examined in the ICU Patient is extubated on room air O2 sat at 98% He reports blindness in R eye, but stated can see out of L. When asking him how many fingers I had up he stated he could not see my hand. Eyes have Sclera edema, and yellow purulent discharge Discussed with RN and sister Reviewed notes Vitals Vitals Vital Signs Date Time Temp Pulse Resp B/P (MAP) Pulse Ox O2 Delivery O2 Flow Rate FiO2 07/04/18 15:19 16 Room Air 07/04/18 11:50 77 127/74 07/04/18 11:00 98.3 98 98.3 07/04/18 10:21 3.0 Physical Exam General: Other Heart: Regular rate, Normal S1, Normal S2 Lungs: Clear Abdomen: Normal bowel sounds, Soft Extremities: No cyanosis Skin: No rashes, Other Labs LABS Laboratory Tests Test 07/04/18 04:00 Sodium Level 135 mmol/L (136-145) Potassium Level 4.0 mmol/L (3.5-5.1) Chloride Level 97 mmol/L (98-107) Carbon Dioxide Level 27 mmol/L (21-32) Anion Gap 11 (6-14) Blood Urea Nitrogen 41 mg/dL (8-26) Creatinine 8.3 mg/dL (0.7-1.3) Estimated GFR (Cockcroft-Gault) 7.0 Glucose Level 100 mg/dL (70-99) Calcium Level 7.2 mg/dL (8.5-10.1) Phosphorus Level 7.0 mg/dL (2.6-4.7) Albumin 1.7 g/dL (3.4-5.0) Review of Systems Review of Systems Patient complains of discharge from eyes Patient complains of no vision Patient denies abdominal pain Assessment and Plan Assessmemt and Plan Problems Medical Problems: (1) Hypertension Status: Acute Respiratory failure Blindness Seizures Goodpasture's disease newly diagnosed Newly started on dialysis Noncompliance Arron's Hep B Malignant HTN Posterior reversible encephalopathy syndrome Plan ICU monitoring until transferred to floor today HD T,,S Tobramycin drops Artificial tears Frequent labs DVT prophylaxis Home meds Appreciate subspecialist input Total time 32 minutes Comment Review of Relevant I have reviewed the following items medardo (where applicable) has been applied. Labs Laboratory Tests Test 07/03/18 03:50 07/03/18 10:00 07/03/18 11:10 07/04/18 04:00 White Blood Count 17.3 x10^3/uL (4.0-11.0) Red Blood Count 3.31 x10^6/uL (4.30-5.70) Hemoglobin 10.2 g/dL (13.0-17.5) Hematocrit 31.5 % (39.0-53.0) Mean Corpuscular Volume 95 fL (79-100) Mean Corpuscular Hemoglobin 31 pg (25-35) Mean Corpuscular Hemoglobin Concent 32 g/dL (31-37) Red Cell Distribution Width 18.1 % (11.5-14.5) Platelet Count 332 x10^3/uL (140-400) Sodium Level 134 mmol/L (136-145) 135 mmol/L (136-145) Potassium Level 4.1 mmol/L (3.5-5.1) 4.0 mmol/L (3.5-5.1) Chloride Level 96 mmol/L (98-107) 97 mmol/L (98-107) Carbon Dioxide Level 26 mmol/L (21-32) 27 mmol/L (21-32) Anion Gap 12 (6-14) 11 (6-14) Blood Urea Nitrogen 30 mg/dL (8-26) 41 mg/dL (8-26) Creatinine 6.9 mg/dL (0.7-1.3) 8.3 mg/dL (0.7-1.3) Estimated GFR (Cockcroft-Gault) 8.7 7.0 Glucose Level 113 mg/dL (70-99) 100 mg/dL (70-99) Calcium Level 7.7 mg/dL (8.5-10.1) 7.2 mg/dL (8.5-10.1) Phosphorus Level 6.9 mg/dL (2.6-4.7) 7.0 mg/dL (2.6-4.7) Albumin 2.0 g/dL (3.4-5.0) 1.7 g/dL (3.4-5.0) Nasal Screen MRSA (PCR) Positive (Negative) O2 Saturation 98 % (92-99) Arterial Blood pH 7.47 (7.35-7.45) Arterial Blood pCO2 at Patient Temp 41 mmHg (35-46) Arterial Blood pO2 at Patient Temp 115 mmHg (75-108) Arterial Blood HCO3 29 mmol/L (21-28) Arterial Blood Base Excess 5 mmol/L (-3-3) FiO2 40 Laboratory Tests Test 07/04/18 04:00 Sodium Level 135 mmol/L (136-145) Potassium Level 4.0 mmol/L (3.5-5.1) Chloride Level 97 mmol/L (98-107) Carbon Dioxide Level 27 mmol/L (21-32) Anion Gap 11 (6-14) Blood Urea Nitrogen 41 mg/dL (8-26) Creatinine 8.3 mg/dL (0.7-1.3) Estimated GFR (Cockcroft-Gault) 7.0 Glucose Level 100 mg/dL (70-99) Calcium Level 7.2 mg/dL (8.5-10.1) Phosphorus Level 7.0 mg/dL (2.6-4.7) Albumin 1.7 g/dL (3.4-5.0) Microbiology 06/30/18 Urine Culture - Final, Complete 06/30/18 Urine Culture Result 1 (LINH) - Final, Complete Medications Current Medications Morphine Sulfate (Morphine Sulfate) 4 mg 1X ONCE IV Last administered on 06/29/18at 11:40; Start 06/29/18 at 11:30; Stop 06/29/18 at 11:31; Status DC Ondansetron HCl (Zofran) 4 mg 1X ONCE IV Last administered on 06/29/18at 11:44; Start 06/29/18 at 11:45; Stop 06/29/18 at 11:46; Status DC Ondansetron HCl (Zofran) 4 mg STK-MED ONCE .ROUTE ; Start 06/29/18 at 11:43; Stop 06/29/18 at 11:44; Status DC Ondansetron HCl (Zofran) 4 mg PRN Q8HRS PRN IV NAUSEA/VOMITING; Start 06/29/18 at 12:15; Stop 06/30/18 at 12:14; Status DC Morphine Sulfate (Morphine Sulfate) 4 mg 1X ONCE IV Last administered on 06/29/18 13:25; Start 06/29/18 at 13:30; Stop 06/29/18 at 13:31; Status DC Clonidine HCl (Catapres) 0.1 mg BID PO Last administered on 07/04/18 11:50; Start 06/29/18 at 21:00 Cyanocobalamin (Vitamin B-12) 1,000 mcg DAILY PO Last administered on 07/03/18 08:05; Start 06/29/18 at 16:30 Sevelamer Carbonate (Renvela) 800 mg TIDWMEALS PO Last administered on 07/03/18 08:05; Start 06/29/18 at 17:00 Hydrocortisone (Cortef) 20 mg DAILYWBKFT PO Last administered on 07/02/18 08:55; Start 06/29/18 at 16:30; Stop 07/02/18 at 09:53; Status DC Multivitamins (Thera M Plus) 1 tab DAILY PO Last administered on 07/03/18 08:05; Start 06/29/18 at 16:30 Olanzapine (ZyPREXA) 20 mg QHS PO Last administered on 07/02/18 20:57; Start 06/29/18 at 21:00 Pantoprazole Sodium (Protonix) 40 mg DAILYAC PO Last administered on 06/29/18 18:31; Start 06/29/18 at 16:30; Stop 07/01/18 at 07:33; Status DC Heparin Sodium (Porcine) (Heparin Sodium) 5,000 unit Q8HRS SQ Last administered on 07/04/18 15:14; Start 06/29/18 at 22:00 Acetaminophen (Tylenol) 650 mg 1X ONCE PO Last administered on 06/29/18 18:32; Start 06/29/18 at 16:30; Stop 06/29/18 at 16:31; Status DC Oxycodone/ Acetaminophen (Percocet 5/325) 1 tab PRN Q4HRS PRN PO PAIN Last administered on 07/04/18 15:17; Start 06/29/18 at 20:00 Iohexol (Omnipaque 350 Mg/ml) 75 ml 1X ONCE IV Last administered on 06/29/18 21:01; Start 06/29/18 at 21:00; Stop 06/29/18 at 21:03; Status DC Labetalol HCl (Normodyne Iv Push) 10 mg PRN Q10MIN PRN IVP HYPERTENSION, SEE COMMENTS; Start 06/29/18 at 21:15 Acetaminophen (Tylenol) 650 mg PRN Q6HRS PRN PO TEMP > 100.4F; Start 06/29/18 at 21:15 Acetaminophen (Tylenol Supp) 650 mg PRN Q4HRS PRN IA TEMP > 100.4F; Start 06/29/18 at 21:15 Aspirin (Ecotrin) 325 mg DAILYWBKFT PO Last administered on 07/04/18at 11:49; Start 06/30/18 at 08:00 Aspirin (Aspirin Rectal Supp) 300 mg PRN DAILY PRN IA IF UNABLE TO TAKE PO; Start 06/29/18 at 21:15 Morphine Sulfate (Morphine Sulfate) 2 mg PRN Q2HR PRN IV SEVERE PAIN Last administered on 07/04/18at 15:19; Start 06/29/18 at 22:30 Levetiracetam 500 mg/Dextrose 105 ml @ 420 mls/hr Q12HR IV Last administered on 07/04/18at 11:51; Start 06/30/18 at 00:00 Levetiracetam 1000 mg/Dextrose 110 ml @ 440 mls/hr 1X ONCE IV Last administered on 06/30/18at 02:25; Start 06/30/18 at 02:30; Stop 06/30/18 at 02:44; Status DC Lorazepam (Ativan) 1 mg PRN Q2HRS PRN IV TREMORS; Start 06/30/18 at 02:00 Fosphenytoin Sodium 1390 mg/ Sodium Chloride 77.8 ml @ 311.2 mls/ hr 1X ONCE IV Last administered on 06/30/18at 04:44; Start 06/30/18 at 05:00; Stop 06/30/18 at 05:14; Status DC Propofol 100 ml @ As Directed STK-MED ONCE IV ; Start 06/30/18 at 05:58; Stop 06/30/18 at 05:59; Status DC Succinylcholine Chloride (Anectine) 200 mg STK-MED ONCE .ROUTE ; Start 06/30/18 at 05:59; Stop 06/30/18 at 06:00; Status DC Propofol 100 ml @ 1.39 mls/hr 1X ONCE IV Last administered on 06/30/18at 06:30; Start 06/30/18 at 06:30; Stop 07/01/18 at 17:31; Status DC Succinylcholine Chloride (Anectine) 200 mg 1X ONCE IV Last administered on 06/30/18at 06:21; Start 06/30/18 at 06:30; Stop 06/30/18 at 06:31; Status DC Propofol 100 ml @ 0 mls/hr CONT PRN IV SEE I/O RECORD Last administered on 07/03/18at 02:50; Start 06/30/18 at 06:30 Fentanyl Citrate 30 ml @ 0 mls/hr CONT PRN IV SEE PROTOCOL; Start 06/30/18 at 06:30; Stop 07/03/18 at 17:50; Status DC Midazolam HCl 100 ml @ 0 mls/hr CONT PRN IV SEE PROTOCOL; Start 06/30/18 at 06:30; Stop 07/03/18 at 17:50; Status DC Fosphenytoin Sodium (Cerebyx) 100 mg Q8HRS IV Last administered on 07/04/18at 15:11; Start 06/30/18 at 14:00 Hydrocortisone Sodium Succinate (Solu-CORTEF) 100 mg Q8HRS IV Last administered on 07/04/18at 15:08; Start 06/30/18 at 14:00 Lansoprazole (Prevacid) 30 mg DAILYAC NG Last administered on 07/03/18at 08:05; Start 07/01/18 at 07:30 Sodium Chloride 1,000 ml @ 1,000 mls/hr Q1H PRN IV hypotension; Start 07/01/18 at 08:00; Stop 07/01/18 at 18:00; Status DC Albumin Human 200 ml @ 200 mls/hr 1X PRN PRN IV Hypotension; Start 07/01/18 at 08:00; Stop 07/01/18 at 18:00; Status DC Acetaminophen (Tylenol) 500 mg 1X PRN PRN PO MILD PAIN / TEMP; Start 07/01/18 at 07:45; Stop 07/01/18 at 18:00; Status DC Diphenhydramine HCl (Benadryl) 25 mg 1X PRN PRN IV ITCHING; Start 07/01/18 at 07:45; Stop 07/01/18 at 18:00; Status DC Diphenhydramine HCl (Benadryl) 25 mg 1X PRN PRN IV ITCHING; Start 07/01/18 at 07:45; Stop 07/01/18 at 18:00; Status DC Sodium Chloride (Normal Saline Flush) 10 ml 1X PRN PRN IV AP catheter pack; Start 07/01/18 at 07:45; Stop 07/01/18 at 18:00; Status DC Sodium Chloride (Normal Saline Flush) 10 ml 1X PRN PRN IV FRAME OPENER catheter pack; Start 07/01/18 at 07:45; Stop 07/01/18 at 18:00; Status DC Sodium Chloride 1,000 ml @ 400 mls/hr Q2H30M PRN IV PATENCY; Start 07/01/18 at 08:00; Stop 07/01/18 at 18:00; Status DC Info (PHARMACY MONITORING -- do not chart) 1 each PRN DAILY PRN MC SEE COMMENTS; Start 07/01/18 at 08:00; Stop 07/04/18 at 07:54; Status DC Gentamicin Sulfate (Gentak) 0.25 inch [id number] OU ; Start 07/02/18 at 23:00; Status Cancel Tobramycin Sulfate (Tobrex Ophth Soln) 2 drop Q4HRS OU Last administered on 07/04/18at 15:03; Start 07/03/18 at 00:00 Multi-Ingred Cream/Lotion/Oil/ Oint (Artificial Tears Eye Ointment) 1 juliette PRN Q1HR PRN OU DRY EYE; Start 07/03/18 at 18:45 Sodium Chloride 1,000 ml @ 1,000 mls/hr Q1H PRN IV hypotension; Start 07/04/18 at 07:47; Stop 07/04/18 at 13:46; Status DC Albumin Human 200 ml @ 200 mls/hr 1X PRN PRN IV Hypotension; Start 07/04/18 at 08:00; Stop 07/04/18 at 13:59; Status DC Acetaminophen (Tylenol) 500 mg 1X PRN PRN PO MILD PAIN / TEMP; Start 07/04/18 at 08:00; Stop 07/05/18 at 07:59 Diphenhydramine HCl (Benadryl) 25 mg 1X PRN PRN IV ITCHING; Start 07/04/18 at 08:00; Stop 07/05/18 at 07:59 Diphenhydramine HCl (Benadryl) 25 mg 1X PRN PRN IV ITCHING; Start 07/04/18 at 08:00; Stop 07/05/18 at 07:59 Sodium Chloride (Normal Saline Flush) 10 ml 1X PRN PRN IV AP catheter pack; Start 07/04/18 at 08:00; Stop 07/05/18 at 07:59 Sodium Chloride (Normal Saline Flush) 10 ml 1X PRN PRN IV FRAME OPENER catheter pack; Start 07/04/18 at 08:00; Stop 07/05/18 at 07:59 Sodium Chloride 1,000 ml @ 400 mls/hr Q2H30M PRN IV PATENCY; Start 07/04/18 at 07:47; Stop 07/04/18 at 19:46 Info (PHARMACY MONITORING -- do not chart) 1 each PRN DAILY PRN MC SEE COMMENTS; Start 07/04/18 at 08:00 Active Scripts Active Clonidine Hcl 0.1 Mg Tablet 0.1 Mg PO BID [Pantoprazole] 40 MG Tablet.dr 40 Mg PO DAILYAC MDD 1 Renvela (Sevelamer Carbonate) 800 Mg Tablet 800 Mg PO TIDWMEALS MDD 1 Reported Multivitamins (Multivitamin) 1 Each Tablet 1 Tab PO DAILY Vitamin B-12 (Cyanocobalamin (Vitamin B-12)) 1,000 Mcg Tablet 1 Tab PO DAILY Olanzapine 20 Mg Tablet 20 Mg PO QHS Cortef (Hydrocortisone) 20 Mg Tablet 20 Mg PO DAILY Vitals/I & O Vital Sign - Last 24 Hours 07/03/18 07/03/18 07/03/18 07/03/18 16:00 16:00 17:00 18:00 Pulse 79 87 87 Resp 12 12 11 B/P (MAP) 134/82 (99) 135/81 (99) 133/73 (93) Pulse Ox 98 96 94 O2 Delivery Room Air Room Air Room Air Room Air 07/03/18 07/03/18 07/03/18 07/03/18 19:00 20:00 20:02 21:00 Temp 97.8 97.6 97.8 97.6 Pulse 84 82 84 Resp 16 16 B/P (MAP) 127/78 (94) 132/86 (101) 132/86 Pulse Ox 94 94 O2 Delivery Room Air Room Air Room Air 07/03/18 07/03/18 07/03/18 07/03/18 21:13 21:35 22:22 23:00 Temp 97.7 98.5 97.1 97.7 98.5 97.1 Pulse 87 86 82 Resp 16 14 17 12 B/P (MAP) 128/85 (99) 144/91 (108) 140/82 (101) Pulse Ox 94 96 96 95 O2 Delivery Room Air Room Air Room Air Room Air 07/03/18 07/04/18 07/04/18 07/04/18 23:54 00:09 01:00 02:00 Temp 97.0 97.1 97.0 97.1 Pulse 83 74 72 Resp 14 16 14 B/P (MAP) 138/94 (109) 138/88 (105) 134/90 (105) Pulse Ox 98 97 96 O2 Delivery Room Air Room Air Room Air Room Air 07/04/18 07/04/18 07/04/18 07/04/18 03:00 04:00 04:00 05:00 Temp 98.0 97.0 98.0 97.0 Pulse 88 79 86 Resp 14 14 15 B/P (MAP) 140/82 (101) 128/86 (100) 132/85 (101) Pulse Ox 96 94 98 O2 Delivery Room Air Room Air Room Air Room Air 07/04/18 07/04/18 07/04/18 07/04/18 06:15 07:00 08:00 08:00 Temp 97.1 98.0 97.1 98.0 Pulse 73 74 81 Resp 12 10 13 B/P (MAP) 125/84 (98) 135/83 (100) 133/77 (95) Pulse Ox 96 96 95 O2 Delivery Room Air Room Air Room Air Room Air 07/04/18 07/04/18 07/04/18 07/04/18 09:00 10:00 10:21 10:51 Pulse 79 70 Resp 13 12 13 16 B/P (MAP) 141/97 (112) 131/76 (94) Pulse Ox 98 99 94 98 O2 Delivery Room Air Room Air Room Air Room Air O2 Flow Rate 3.0 07/04/18 07/04/18 07/04/18 07/04/18 11:00 11:50 15:17 15:19 Temp 98.3 98.3 Pulse 64 77 Resp 10 16 16 B/P (MAP) 144/84 (104) 127/74 Pulse Ox 98 O2 Delivery Room Air Room Air Room Air Intake and Output 07/03/18 07/03/18 07/04/18 14:59 22:59 06:59 Intake Total 280 ml 105 ml 0 ml Output Total 175 ml 390 ml 450 ml Balance 105 ml -285 ml -450 ml SILVANO HARDY III DO July 04, 2018 16:04
[2018-07-04 16:12] LABS: C ANCA <1:20 titer (Neg:<1:20); P ANCA <1:20 titer (Neg:<1:20)
--- NOTE | 2018-07-04 16:59 | PDOC ---
PROGRESS NOTES Assessment Assessment PRES. Vision loss with corneal cloudiness (central + peripheral etiologies ?) Hypertensive emergency, BP 212/133 mmHg. Seizure. Metabolic encephalopathy. Vision loss. Petechial cerebral hemorrhage. Renal failure. UTI? Pleural effusion. Anemia. Hypocalcemia. Schizophrenia. Bipolar disorder. RECOMMENDATIONS/PLAN: ASA 325 mg daily, OK. Continue Keppra 500 mg bid. BP control. Treat medical diseases. Please consult Ophthalmology. Suggest transfer to facility with ophthalmology. OT/PT. Past Medical History GI: Hemorrhoids, Other (diarrhea) Heme/Onc: Cancer (thyroid (Para?)) Psych: Anxiety, Depression, Schizophrenia Renal/: Acute renal failure Endocrine: Other ([place]'s disease) Past Surgical History Cholecystectomy, Other (cervical fusion, left knee, parathyroidectomy) Family History Hypertension Social History He is homeless, he denied earlier having use of alcohol, tobacco, or street drugs. ROS Negative for fever, chills, weight loss, shortness of breath, chest pain, indigestion, hematochezia, melena, and dysuria. Full 14-point review of systems is negative. ALLERGY: NKDA MEDICATIONS: Refer to MAR PHYSICAL EXAMINATION: General appearance in subacute distress. HEENT: Normocephalic and nontraumatic. Eyes, nose, ears, and throat are unremarkable. Neck is supple. No lymphadenopathy. No Crepitus. Cardiovascular: S1, S2, regular rate and rhythm. Pulmonary: Decreased to auscultation bilaterally. Abdomen: Bowel sounds are positive. Extremities: No rash, lesions, or edema. No restriction of range of motion NEUROLOGICAL EXAMINATION: [place] [id number]. Not oriented to time, place and person. PERRL. EOMI. Corneal cloudiness noted. Sclera congestion noted. Only has light obgyn hospitalist physician and sight of close finger movements. CN: no focal findings. Muscle tone: within normal. Muscle strength: Moves all extremities to stimuli. DTR: 1-2 Plantar reflex: Neutral response bilaterally Gait: Not able to walk. Sensory exam: Withdraw response noted. Not able to access cerebellar signs this time. F-T-N test not performed due to not follow commands. Objective Objective Vital Signs Date Time Temp Pulse Resp B/P (MAP) Pulse Ox O2 Delivery O2 Flow Rate FiO2 07/04/18 16:17 16 Room Air 07/04/18 11:50 77 127/74 07/04/18 11:00 98.3 98 98.3 07/04/18 10:21 3.0 Intake and Output 07/04/18 07:00 Intake Total 385 ml Output Total 1050 ml Balance -665 ml Intake Oral 0 ml IV Total 165 ml Tube Feeding 175 ml Other 45 ml Output Urine Total 1050 ml Gastric Drainage Total 0 ml Vitals Signs Vitals VS - Last 72 Hours, by Label Date Time Temp Pulse Resp B/P (MAP) Pulse Ox O2 Delivery O2 Flow Rate FiO2 07/04/18 16:17 16 Room Air 07/04/18 15:49 16 Room Air 07/04/18 15:19 16 Room Air 07/04/18 15:17 16 Room Air 07/04/18 11:50 77 127/74 07/04/18 11:00 98.3 64 10 144/84 (104) 98 Room Air 98.3 07/04/18 10:51 98 07/04/18 10:21 13 94 Room Air 3.0 07/04/18 10:00 70 12 131/76 (94) 99 Room Air 07/04/18 09:00 79 13 141/97 (112) 98 Room Air 07/04/18 08:00 Room Air 07/04/18 08:00 81 13 133/77 (95) 95 Room Air 07/04/18 07:00 98.0 74 10 135/83 (100) 96 Room Air 98.0 07/04/18 06:15 97.1 73 12 125/84 (98) 96 Room Air 97.1 07/04/18 05:00 97.0 86 15 132/85 (101) 98 Room Air 97.0 07/04/18 04:00 Room Air 07/04/18 04:00 98.0 79 14 128/86 (100) 94 Room Air 98.0 07/04/18 03:00 88 14 140/82 (101) 96 Room Air 07/04/18 02:00 72 14 134/90 (105) 96 Room Air 07/04/18 01:00 97.1 74 16 138/88 (105) 97 Room Air 97.1 07/04/18 00:09 97.0 83 14 138/94 (109) 98 Room Air 97.0 07/03/18 23:54 Room Air 07/03/18 23:00 97.1 82 12 140/82 (101) 95 Room Air 97.1 07/03/18 22:22 98.5 86 17 144/91 (108) 96 Room Air 98.5 07/03/18 21:35 97.7 87 14 128/85 (99) 96 Room Air 97.7 07/03/18 21:13 16 94 Room Air 07/03/18 21:00 84 132/86 07/03/18 20:02 Room Air 07/03/18 20:00 97.6 82 16 132/86 (101) 94 Room Air 97.6 07/03/18 19:00 97.8 84 16 127/78 (94) 94 Room Air 97.8 07/03/18 18:00 87 11 133/73 (93) 94 Room Air 07/03/18 17:00 87 12 135/81 (99) 96 Room Air 07/03/18 16:00 79 12 134/82 (99) 98 Room Air 07/03/18 16:00 Room Air 07/03/18 15:00 98.6 75 8 138/86 (103) 98 Room Air 98.6 07/03/18 14:00 76 8 139/90 (106) 98 Room Air 07/03/18 13:00 87 11 130/85 (100) 99 Room Air 07/03/18 12:00 71 14 134/88 (103) 100 Nasal Cannula 3.0 07/03/18 12:00 Nasal Cannula 3.0 07/03/18 11:35 Nasal Cannula 3.0 07/03/18 11:00 77 15 140/92 (108) 100 Ventilator 07/03/18 10:30 Ventilator 07/03/18 10:00 77 19 117/80 (92) 100 Ventilator 07/03/18 09:30 100 Ventilator 07/03/18 09:00 70 16 125/84 (98) 99 Ventilator 07/03/18 08:07 70 119/83 07/03/18 08:00 70 16 119/83 (95) 100 Ventilator 07/03/18 08:00 Mechanical Ventilator 07/03/18 07:31 100 Ventilator 07/03/18 07:00 98.4 69 19 132/85 (101) 100 Ventilator 98.4 Laboratory Laboratory Laboratory Tests Test 07/04/18 04:00 Sodium Level 135 mmol/L (136-145) Potassium Level 4.0 mmol/L (3.5-5.1) Chloride Level 97 mmol/L (98-107) Carbon Dioxide Level 27 mmol/L (21-32) Anion Gap 11 (6-14) Blood Urea Nitrogen 41 mg/dL (8-26) Creatinine 8.3 mg/dL (0.7-1.3) Estimated GFR (Cockcroft-Gault) 7.0 Glucose Level 100 mg/dL (70-99) Calcium Level 7.2 mg/dL (8.5-10.1) Phosphorus Level 7.0 mg/dL (2.6-4.7) Albumin 1.7 g/dL (3.4-5.0) Microbiology 06/30/18 Urine Culture - Final, Complete 06/30/18 Urine Culture Result 1 (LINH) - Final, Complete Medication Medications Current Medications Acetaminophen (Tylenol) 500 mg 1X PRN PRN PO MILD PAIN / TEMP; Start 07/04/18 at 08:00; Stop 07/05/18 at 07:59 Albumin Human 200 ml @ 200 mls/hr 1X PRN PRN IV Hypotension; Start 07/04/18 at 08:00; Stop 07/04/18 at 13:59; Status DC Diphenhydramine HCl (Benadryl) 25 mg 1X PRN PRN IV ITCHING; Start 07/04/18 at 08:00; Stop 07/05/18 at 07:59 Diphenhydramine HCl (Benadryl) 25 mg 1X PRN PRN IV ITCHING; Start 07/04/18 at 08:00; Stop 07/05/18 at 07:59 Info (PHARMACY MONITORING -- do not chart) 1 each PRN DAILY PRN MC SEE COMMENTS; Start 07/04/18 at 08:00 Multi-Ingred Cream/Lotion/Oil/ Oint (Artificial Tears Eye Ointment) 1 juliette PRN Q1HR PRN OU DRY EYE; Start 07/03/18 at 18:45 Sodium Chloride 1,000 ml @ 400 mls/hr Q2H30M PRN IV PATENCY; Start 07/04/18 at 07:47; Stop 07/04/18 at 19:46 Sodium Chloride 1,000 ml @ 1,000 mls/hr Q1H PRN IV hypotension; Start 07/04/18 at 07:47; Stop 07/04/18 at 13:46; Status DC Sodium Chloride (Normal Saline Flush) 10 ml 1X PRN PRN IV AP catheter pack; Start 07/04/18 at 08:00; Stop 07/05/18 at 07:59 Sodium Chloride (Normal Saline Flush) 10 ml 1X PRN PRN IV FIELD TECHNICAL ASSISTANT catheter pack; Start 07/04/18 at 08:00; Stop 07/05/18 at 07:59 Comment Review of Relevant I have reviewed the following items medardo (where applicable) has been applied. ROSHNI BASHIR MD July 04, 2018 16:59
[2018-07-04] MEDS: OLANZapine 5 MG TABLET PO SCH (19:50)
[2018-07-05] VITALS (7 sets, daily range): BP systolic 134–165; BP diastolic 91–112
[2018-07-05] MEDS: TOBRAMYCIN 0.3% OPHTH SOLUTION 5ML BOTTLE. OU SCH ×4 (00:30→12:00)
--- NOTE | 2018-07-05 00:35 | NUR ---
Patient still has not voided as of this time. Patient declines need to void. Bladder scanned patient, approximately 200mL reported. Will scan patient post-void.
--- NOTE | 2018-07-05 04:25 | NUR ---
Rechecked patient's BP - 165/112 HR 79. PRN medication parameters not met, will continue to monitor and pass along to day RN. Bladder scanned patient again at this time, approximately 260mL resulted. Patient again declines need to void. Patient had dialysis 07/04/18 with 2L off. Will continue to monitor and pass along to day RN.
[2018-07-05 05:25] LABS: BASO % 0 % (0-3); EOS % 0 % (0-3); HEMATOCRIT 30.4 % (39.0-53.0); HEMOGLOBIN 10.3 g/dL (13.0-17.5); LYMPH # 1.2 x10^3/uL (1.0-4.8); LYMPH % 13 % (24-48); MEAN CORPUSCULAR HEMOGLOBIN 31 pg (25-35); MEAN CORPUSCULAR HGB CONC 34 g/dL (31-37); MEAN CORPUSCULAR VOLUME 92 fL (79-100); MONO # 0.8 x10^3/uL (0.0-1.1); MONO % 9 % (0-9); NEUT # 7.3 x10^3uL (1.8-7.7); NEUT % 78 % (31-73); PLATELET COUNT 291 x10^3/uL (140-400); RED BLOOD COUNT 3.29 x10^6/uL (4.30-5.70); RED CELL DISTRIBUTION WIDTH 17.3 % (11.5-14.5); WHITE BLOOD COUNT 9.3 x10^3/uL (4.0-11.0)
[2018-07-05 05:41] LABS: ALBUMIN 1.6 g/dL (3.4-5.0); CALCIUM 7.5 mg/dL (8.5-10.1); CREATININE 6.5 mg/dL (0.7-1.3); GFR 9.3; PHOSPHORUS 5.1 mg/dL (2.6-4.7); POTASSIUM 4.1 mmol/L (3.5-5.1)
[2018-07-05] MEDS: HYDROCORTISONE SOD SUCC/PF 100 MG/2 ML VIAL. IV SCH ×3 (05:48→21:45)
[2018-07-05] MEDS: FOSPHENYTOIN 100 MG/2 ML VIAL. IV SCH ×3 (05:49→21:45)
[2018-07-05] MEDS: HEPARIN for SUB-Q USE 5,000 UNIT/ML VIAL. SQ SCH ×3 (05:57→21:50)
[2018-07-05] MEDS: LANSOPRAZOLE 30 MG TAB.RAP.DR NG SCH (08:52)
[2018-07-05] MEDS: ASPIRIN ENTERIC COATED 325 MG TABLET.DR. PO SCH (08:52)
[2018-07-05] MEDS: CYANOCOBALAMIN (VITAMIN B-12) 1,000 MCG TABLET. PO SCH (08:52)
[2018-07-05] MEDS: MULTIVITAMIN with MINERAL TABLET. PO SCH (08:52)
[2018-07-05] MEDS: levETIRAcetam 500 MG in IV DEXTROSE 5% 100ML 100 ML IV SCH ×2 (08:55→20:23)
[2018-07-05] MEDS: cloNIDine HCL 0.1 MG TABLET PO SCH ×2 (08:55→20:25)
[2018-07-05] MEDS: SEVELAMER CARBONATE 800 MG TABLET. PO SCH ×3 (09:54→17:24)
[2018-07-05] MEDS: MORPHINE SULFATE 2 MG/ML VIAL. IV PRN ×2 (09:56→14:41)
[2018-07-05] MEDS: oxyCODONE/APAP 5/325 1 TAB TABLET PO PRN ×2 (10:18→20:24)
--- NOTE | 2018-07-05 10:43 | PDOC ---
PULMONARY PROGRESS NOTES Subjective EXTUBATED 07/03 ON RA Vitals Vital Signs Date Time Temp Pulse Resp B/P (MAP) Pulse Ox O2 Delivery O2 Flow Rate FiO2 07/05/18 10:18 Room Air 07/05/18 08:55 87 144/91 07/05/18 07:00 98.1 18 93 3.0 98.1 General: Alert, No acute distress Lungs: Clear Cardiovascular: S1, S2 Abdomen: Soft Neuro Exam: Alert Extremities: Other (EDEMA) Labs Laboratory Tests Test 07/03/18 11:10 07/04/18 04:00 07/05/18 05:05 O2 Saturation 98 % (92-99) Arterial Blood pH 7.47 (7.35-7.45) Arterial Blood pCO2 at Patient Temp 41 mmHg (35-46) Arterial Blood pO2 at Patient Temp 115 mmHg (75-108) Arterial Blood HCO3 29 mmol/L (21-28) Arterial Blood Base Excess 5 mmol/L (-3-3) FiO2 40 Sodium Level 135 mmol/L (136-145) 137 mmol/L (136-145) Potassium Level 4.0 mmol/L (3.5-5.1) 4.1 mmol/L (3.5-5.1) Chloride Level 97 mmol/L (98-107) 100 mmol/L (98-107) Carbon Dioxide Level 27 mmol/L (21-32) 28 mmol/L (21-32) Anion Gap 11 (6-14) 9 (6-14) Blood Urea Nitrogen 41 mg/dL (8-26) 37 mg/dL (8-26) Creatinine 8.3 mg/dL (0.7-1.3) 6.5 mg/dL (0.7-1.3) Estimated GFR (Cockcroft-Gault) 7.0 9.3 Glucose Level 100 mg/dL (70-99) 113 mg/dL (70-99) Calcium Level 7.2 mg/dL (8.5-10.1) 7.5 mg/dL (8.5-10.1) Phosphorus Level 7.0 mg/dL (2.6-4.7) 5.1 mg/dL (2.6-4.7) Albumin 1.7 g/dL (3.4-5.0) 1.6 g/dL (3.4-5.0) White Blood Count 9.3 x10^3/uL (4.0-11.0) Red Blood Count 3.29 x10^6/uL (4.30-5.70) Hemoglobin 10.3 g/dL (13.0-17.5) Hematocrit 30.4 % (39.0-53.0) Mean Corpuscular Volume 92 fL (79-100) Mean Corpuscular Hemoglobin 31 pg (25-35) Mean Corpuscular Hemoglobin Concent 34 g/dL (31-37) Red Cell Distribution Width 17.3 % (11.5-14.5) Platelet Count 291 x10^3/uL (140-400) Neutrophils (%) (Auto) 78 % (31-73) Lymphocytes (%) (Auto) 13 % (24-48) Monocytes (%) (Auto) 9 % (0-9) Eosinophils (%) (Auto) 0 % (0-3) Basophils (%) (Auto) 0 % (0-3) Neutrophils # (Auto) 7.3 x10^3uL (1.8-7.7) Lymphocytes # (Auto) 1.2 x10^3/uL (1.0-4.8) Monocytes # (Auto) 0.8 x10^3/uL (0.0-1.1) Eosinophils # (Auto) 0.0 x10^3/uL (0.0-0.7) Basophils # (Auto) 0.0 x10^3/uL (0.0-0.2) Laboratory Tests Test 07/05/18 05:05 White Blood Count 9.3 x10^3/uL (4.0-11.0) Red Blood Count 3.29 x10^6/uL (4.30-5.70) Hemoglobin 10.3 g/dL (13.0-17.5) Hematocrit 30.4 % (39.0-53.0) Mean Corpuscular Volume 92 fL (79-100) Mean Corpuscular Hemoglobin 31 pg (25-35) Mean Corpuscular Hemoglobin Concent 34 g/dL (31-37) Red Cell Distribution Width 17.3 % (11.5-14.5) Platelet Count 291 x10^3/uL (140-400) Neutrophils (%) (Auto) 78 % (31-73) Lymphocytes (%) (Auto) 13 % (24-48) Monocytes (%) (Auto) 9 % (0-9) Eosinophils (%) (Auto) 0 % (0-3) Basophils (%) (Auto) 0 % (0-3) Neutrophils # (Auto) 7.3 x10^3uL (1.8-7.7) Lymphocytes # (Auto) 1.2 x10^3/uL (1.0-4.8) Monocytes # (Auto) 0.8 x10^3/uL (0.0-1.1) Eosinophils # (Auto) 0.0 x10^3/uL (0.0-0.7) Basophils # (Auto) 0.0 x10^3/uL (0.0-0.2) Sodium Level 137 mmol/L (136-145) Potassium Level 4.1 mmol/L (3.5-5.1) Chloride Level 100 mmol/L (98-107) Carbon Dioxide Level 28 mmol/L (21-32) Anion Gap 9 (6-14) Blood Urea Nitrogen 37 mg/dL (8-26) Creatinine 6.5 mg/dL (0.7-1.3) Estimated GFR (Cockcroft-Gault) 9.3 Glucose Level 113 mg/dL (70-99) Calcium Level 7.5 mg/dL (8.5-10.1) Phosphorus Level 5.1 mg/dL (2.6-4.7) Albumin 1.6 g/dL (3.4-5.0) Medications Active Scripts Medications Dose Route/Sig Max Daily Dose Days Date Category Clonidine Hcl 0.1 Mg Tablet 0.1 Mg PO BID 06/27/18 Rx [Pantoprazole] 40 MG Tablet.dr 40 Mg PO DAILYAC MDD 1 06/27/18 Rx Renvela (Sevelamer Carbonate) 800 Mg Tablet 800 Mg PO TIDWMEALS MDD 1 06/27/18 Rx Multivitamins (Multivitamin) 1 Each Tablet 1 Tab PO DAILY 06/23/18 Reported Vitamin B-12 (Cyanocobalamin (Vitamin B-12)) 1,000 Mcg Tablet 1 Tab PO DAILY 06/23/18 Reported Olanzapine 20 Mg Tablet 20 Mg PO QHS 06/23/18 Reported Cortef (Hydrocortisone) 20 Mg Tablet 20 Mg PO DAILY 06/22/18 Reported Impression . IMPRESSION: 1. Acute respiratory failure secondary to seizures. 2. Posterior reversible encephalopathy syndrome related to hypertension and renal insufficiency. 3. Encephalopathy. 4. End-stage renal disease. 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 Schizophrenia. 6. Hepatitis B positive antibodies. 7. Tobacco abuse. 8. Noncompliance. 9. PRES ON MRI BRAIN Plan . EXTUBATED 07/03 SPEECH EVAL DONE. ON PO HD PER RENAL FOLLOW NEURO FOLLOW SEROLOGY STABLE PULMONARY STATUS HILARY STERN MD July 05, 2018 10:43
--- NOTE | 2018-07-05 11:59 | PDOC ---
SUBJECTIVE ROS Transferred out of ICU, No complaints, didnt Void since Pete removed last night OBJECTIVE Vital Signs Vital Signs Date Time Temp Pulse Resp B/P (MAP) Pulse Ox O2 Delivery O2 Flow Rate FiO2 07/05/18 11:00 98.2 90 18 134/92 (106) 95 Room Air 3.0 98.2 I & 0 Intake and Output 07/05/18 06:59 Output Total 120 ml Balance -120 ml Output Urine Total 120 ml PHYSICAL EXAM Physical Exam General NAD , sitting up in chair with eyes closed HEENT: OM moist Neck: Supple Lungs- CTA bilat CV RRR Ext- No LE edema Gu- Pete dced last night Neuro- Alert xO x3 DIAGNOSIS/ASSESSMENT Assessment & Plan New ESRD - S/P Renal Bx 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 UOP improved in ICU, No UOP since Ptee removed last night Bladder scan with 200 CC May need straight cath if unable to void , dw RN No indication for HD today [place]'s syndrome- post renal Bx No Obvious Lung involvement Anti GBM positive, 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 Malignant HTN - Controlled now Seizures - No recent Sz activity per neurology Posterior reversible encephalopathy syndrome,(PRES) Neurology following 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 Anemia - Hgb improved Monitor HEP B- Positive Ab, repeat negative Arron's - On Hydrocortisone Per primary COMMENT/RELEVANT DATA Meds Current Medications Medications (Trade) Dose Ordered Sig/Essence Start Time Stop Time Status Last Admin Dose Admin Acetaminophen (Tylenol Supp) 650 mg PRN Q4HRS PRN 06/29/18 21:15 Acetaminophen (Tylenol) 500 mg 1X PRN PRN 07/04/18 08:00 07/05/18 07:59 DC Albumin Human 200 ml @ 200 mls/hr 1X PRN PRN 07/04/18 08:00 07/04/18 13:59 DC Aspirin (Aspirin Rectal Supp) 300 mg PRN DAILY PRN 06/29/18 21:15 Aspirin (Ecotrin) 325 mg DAILYWBKFT 06/30/18 08:00 07/05/18 08:52 325 MG Clonidine HCl (Catapres) 0.1 mg BID 06/29/18 21:00 07/05/18 08:55 0.1 MG Cyanocobalamin (Vitamin B-12) 1,000 mcg DAILY 06/29/18 16:30 07/05/18 08:52 1,000 MCG Diphenhydramine HCl (Benadryl) 25 mg 1X PRN PRN 07/04/18 08:00 07/05/18 07:59 DC Fentanyl Citrate 30 ml @ 0 mls/hr CONT PRN 06/30/18 06:30 07/03/18 17:50 DC Fosphenytoin Sodium (Cerebyx) 100 mg Q8HRS 06/30/18 14:00 07/05/18 05:49 100 MG Fosphenytoin Sodium 1390 mg/ Sodium Chloride 77.8 ml @ 311.2 mls/ hr 1X ONCE 06/30/18 05:00 06/30/18 05:14 DC 06/30/18 04:44 311.2 MLS/HR Gentamicin Sulfate (Gentak) 0.25 inch [id number] 07/02/18 23:00 Cancel Heparin Sodium (Porcine) (Heparin Sodium) 5,000 unit Q8HRS 06/29/18 22:00 07/05/18 05:57 5,000 UNIT Hydrocortisone (Cortef) 20 mg DAILYWBKFT 06/29/18 16:30 07/02/18 09:53 DC 07/02/18 08:55 20 MG Hydrocortisone Sodium Succinate (Solu-CORTEF) 100 mg Q8HRS 06/30/18 14:00 07/05/18 05:48 100 MG Info (PHARMACY MONITORING -- do not chart) 1 each PRN DAILY PRN 07/04/18 08:00 Iohexol (Omnipaque 350 Mg/ml) 75 ml 1X ONCE 06/29/18 21:00 06/29/18 21:03 DC 06/29/18 21:01 75 ML Labetalol HCl (Normodyne Iv Push) 10 mg PRN Q10MIN PRN 06/29/18 21:15 Lansoprazole (Prevacid) 30 mg DAILYAC 07/01/18 07:30 07/05/18 08:52 30 MG Levetiracetam 1000 mg/Dextrose 110 ml @ 440 mls/hr 1X ONCE 06/30/18 02:30 06/30/18 02:44 DC 06/30/18 02:25 440 MLS/HR Levetiracetam 500 mg/Dextrose 105 ml @ 420 mls/hr Q12HR 06/30/18 00:00 07/05/18 08:55 420 MLS/HR Lorazepam (Ativan) 1 mg PRN Q2HRS PRN 06/30/18 02:00 Midazolam HCl 100 ml @ 0 mls/hr CONT PRN 06/30/18 06:30 07/03/18 17:50 DC Morphine Sulfate (Morphine Sulfate) 2 mg PRN Q2HR PRN 06/29/18 22:30 07/05/18 09:56 2 MG Multi-Ingred Cream/Lotion/Oil/ Oint (Artificial Tears Eye Ointment) 1 juliette PRN Q1HR PRN 07/03/18 18:45 Multivitamins (Thera M Plus) 1 tab DAILY 06/29/18 16:30 07/05/18 08:52 1 TAB Olanzapine (ZyPREXA) 20 mg QHS 06/29/18 21:00 07/04/18 19:50 20 MG Ondansetron HCl (Zofran) 4 mg PRN Q8HRS PRN 06/29/18 12:15 06/30/18 12:14 DC Oxycodone/ Acetaminophen (Percocet 5/325) 1 tab PRN Q4HRS PRN 06/29/18 20:00 07/05/18 10:18 1 TAB Pantoprazole Sodium (Protonix) 40 mg DAILYAC 06/29/18 16:30 07/01/18 07:33 DC 06/29/18 18:31 40 MG Propofol 100 ml @ 0 mls/hr CONT PRN 06/30/18 06:30 07/03/18 02:50 16.682 MLS/HR Sevelamer Carbonate (Renvela) 800 mg TIDWMEALS 06/29/18 17:00 07/05/18 09:54 800 MG Sodium Chloride 1,000 ml @ 400 mls/hr Q2H30M PRN 07/04/18 07:47 07/04/18 19:46 DC Sodium Chloride (Normal Saline Flush) 10 ml 1X PRN PRN 07/04/18 08:00 07/05/18 07:59 DC Succinylcholine Chloride (Anectine) 200 mg 1X ONCE 06/30/18 06:30 06/30/18 06:31 DC 06/30/18 06:21 200 MG Tobramycin Sulfate (Tobrex Ophth Soln) 2 drop Q4HRS 07/03/18 00:00 07/05/18 08:53 2 DROP Lab Laboratory Tests Test 07/05/18 05:05 White Blood Count 9.3 x10^3/uL (4.0-11.0) Red Blood Count 3.29 x10^6/uL (4.30-5.70) Hemoglobin 10.3 g/dL (13.0-17.5) Hematocrit 30.4 % (39.0-53.0) Mean Corpuscular Volume 92 fL (79-100) Mean Corpuscular Hemoglobin 31 pg (25-35) Mean Corpuscular Hemoglobin Concent 34 g/dL (31-37) Red Cell Distribution Width 17.3 % (11.5-14.5) Platelet Count 291 x10^3/uL (140-400) Neutrophils (%) (Auto) 78 % (31-73) Lymphocytes (%) (Auto) 13 % (24-48) Monocytes (%) (Auto) 9 % (0-9) Eosinophils (%) (Auto) 0 % (0-3) Basophils (%) (Auto) 0 % (0-3) Neutrophils # (Auto) 7.3 x10^3uL (1.8-7.7) Lymphocytes # (Auto) 1.2 x10^3/uL (1.0-4.8) Monocytes # (Auto) 0.8 x10^3/uL (0.0-1.1) Eosinophils # (Auto) 0.0 x10^3/uL (0.0-0.7) Basophils # (Auto) 0.0 x10^3/uL (0.0-0.2) Sodium Level 137 mmol/L (136-145) Potassium Level 4.1 mmol/L (3.5-5.1) Chloride Level 100 mmol/L (98-107) Carbon Dioxide Level 28 mmol/L (21-32) Anion Gap 9 (6-14) Blood Urea Nitrogen 37 mg/dL (8-26) Creatinine 6.5 mg/dL (0.7-1.3) Estimated GFR (Cockcroft-Gault) 9.3 Glucose Level 113 mg/dL (70-99) Calcium Level 7.5 mg/dL (8.5-10.1) Phosphorus Level 5.1 mg/dL (2.6-4.7) Albumin 1.6 g/dL (3.4-5.0) Results All relevant outside records, renal labs, imaging studies, telemetry/EKG's were reviewed. EDEL ADKINS MD July 05, 2018 11:59
[2018-07-05] MEDS ORDERED: DIVA500T2 PO (12:40)
[2018-07-05] MEDS ORDERED: IBUP-1027 PO (12:40)
[2018-07-05] MEDS ORDERED: HYDR50TA PO (12:40)
[2018-07-05] MEDS ORDERED: OLAN10TA9 PO (12:40)
[2018-07-05] MEDS ORDERED: HALO10TA PO (12:40)
[2018-07-05] MEDS ORDERED: BENZ1TAB5 PO (12:40)
[2018-07-05] MEDS: CIPROFLOXACIN 0.3% OPHTH SOLUTION 5ML BOTTLE. OU SCH ×12 (13:15→23:33)
--- NOTE | 2018-07-05 13:27 | NUR ---
Notified Dr. Benjamin about Dr. Godinez and do note come to hospital for consults. Pt has to be discharge and seen at the office.
--- NOTE | 2018-07-05 13:38 | PDOC ---
PROGRESS NOTES Chief Complaint Chief Complaint Posterior reversible encephalopathy syndrome on admission hypertensive emergency resolved Seizure disorder and loss of airway requiring ICU stay and intubation during his admission Vision loss with corneal cloudiness (central + peripheral etiologies ?) recent onset, this was documented 2 days ago, started on Tobramycin, opthalmology consultation has been requested but not available at our institution, verbal recommendation from local ophtalmologist greatly appreciated. Metabolic encephalopathy. Resolved Vision loss. Petechial cerebral hemorrhage. Renal failure. secondary to [place] biopsy proven as per review of records. UTI? Pleural effusion. Anemia. Hypocalcemia. Schizophrenia. Bipolar disorder. Newly started on dialysis Noncompliance Door's Hep B Malignant HTN Plan; will start cipro ophtalmic may need to transfer to institution where ophthalmology services can evaluate his recent vision loss. continue current supportive measures will resume home meds further recommendations based on clincal course. History of Present Illness History of Present Illness Patient seen and examined in the ICU Patient is extubated on room air O2 sat at 98% He reports blindness in R eye, but stated can see out of L. When asking him how many fingers I had up he stated he could not see my hand. Eyes have Sclera edema, and yellow purulent discharge Discussed with RN and sister Reviewed notes Vitals Vitals Vital Signs Date Time Temp Pulse Resp B/P (MAP) Pulse Ox O2 Delivery O2 Flow Rate FiO2 07/05/18 11:15 Room Air 07/05/18 11:00 98.2 90 18 134/92 (106) 95 3.0 98.2 Physical Exam General: Other Heart: Regular rate, Normal S1, Normal S2 Lungs: Clear Abdomen: Normal bowel sounds, Soft Extremities: No cyanosis Skin: No rashes, Other Labs LABS Laboratory Tests Test 07/05/18 05:05 White Blood Count 9.3 x10^3/uL (4.0-11.0) Red Blood Count 3.29 x10^6/uL (4.30-5.70) Hemoglobin 10.3 g/dL (13.0-17.5) Hematocrit 30.4 % (39.0-53.0) Mean Corpuscular Volume 92 fL (79-100) Mean Corpuscular Hemoglobin 31 pg (25-35) Mean Corpuscular Hemoglobin Concent 34 g/dL (31-37) Red Cell Distribution Width 17.3 % (11.5-14.5) Platelet Count 291 x10^3/uL (140-400) Neutrophils (%) (Auto) 78 % (31-73) Lymphocytes (%) (Auto) 13 % (24-48) Monocytes (%) (Auto) 9 % (0-9) Eosinophils (%) (Auto) 0 % (0-3) Basophils (%) (Auto) 0 % (0-3) Neutrophils # (Auto) 7.3 x10^3uL (1.8-7.7) Lymphocytes # (Auto) 1.2 x10^3/uL (1.0-4.8) Monocytes # (Auto) 0.8 x10^3/uL (0.0-1.1) Eosinophils # (Auto) 0.0 x10^3/uL (0.0-0.7) Basophils # (Auto) 0.0 x10^3/uL (0.0-0.2) Sodium Level 137 mmol/L (136-145) Potassium Level 4.1 mmol/L (3.5-5.1) Chloride Level 100 mmol/L (98-107) Carbon Dioxide Level 28 mmol/L (21-32) Anion Gap 9 (6-14) Blood Urea Nitrogen 37 mg/dL (8-26) Creatinine 6.5 mg/dL (0.7-1.3) Estimated GFR (Cockcroft-Gault) 9.3 Glucose Level 113 mg/dL (70-99) Calcium Level 7.5 mg/dL (8.5-10.1) Phosphorus Level 5.1 mg/dL (2.6-4.7) Albumin 1.6 g/dL (3.4-5.0) Review of Systems Review of Systems pertinent as per HPI otherwise 14 point review of system is negative. Assessment and Plan Assessmemt and Plan Problems Medical Problems: (1) Hypertension Status: Acute Comment Review of Relevant I have reviewed the following items medardo (where applicable) has been applied. Labs Laboratory Tests Test 07/04/18 04:00 07/05/18 05:05 Sodium Level 135 mmol/L (136-145) 137 mmol/L (136-145) Potassium Level 4.0 mmol/L (3.5-5.1) 4.1 mmol/L (3.5-5.1) Chloride Level 97 mmol/L (98-107) 100 mmol/L (98-107) Carbon Dioxide Level 27 mmol/L (21-32) 28 mmol/L (21-32) Anion Gap 11 (6-14) 9 (6-14) Blood Urea Nitrogen 41 mg/dL (8-26) 37 mg/dL (8-26) Creatinine 8.3 mg/dL (0.7-1.3) 6.5 mg/dL (0.7-1.3) Estimated GFR (Cockcroft-Gault) 7.0 9.3 Glucose Level 100 mg/dL (70-99) 113 mg/dL (70-99) Calcium Level 7.2 mg/dL (8.5-10.1) 7.5 mg/dL (8.5-10.1) Phosphorus Level 7.0 mg/dL (2.6-4.7) 5.1 mg/dL (2.6-4.7) Albumin 1.7 g/dL (3.4-5.0) 1.6 g/dL (3.4-5.0) White Blood Count 9.3 x10^3/uL (4.0-11.0) Red Blood Count 3.29 x10^6/uL (4.30-5.70) Hemoglobin 10.3 g/dL (13.0-17.5) Hematocrit 30.4 % (39.0-53.0) Mean Corpuscular Volume 92 fL (79-100) Mean Corpuscular Hemoglobin 31 pg (25-35) Mean Corpuscular Hemoglobin Concent 34 g/dL (31-37) Red Cell Distribution Width 17.3 % (11.5-14.5) Platelet Count 291 x10^3/uL (140-400) Neutrophils (%) (Auto) 78 % (31-73) Lymphocytes (%) (Auto) 13 % (24-48) Monocytes (%) (Auto) 9 % (0-9) Eosinophils (%) (Auto) 0 % (0-3) Basophils (%) (Auto) 0 % (0-3) Neutrophils # (Auto) 7.3 x10^3uL (1.8-7.7) Lymphocytes # (Auto) 1.2 x10^3/uL (1.0-4.8) Monocytes # (Auto) 0.8 x10^3/uL (0.0-1.1) Eosinophils # (Auto) 0.0 x10^3/uL (0.0-0.7) Basophils # (Auto) 0.0 x10^3/uL (0.0-0.2) Laboratory Tests Test 07/05/18 05:05 White Blood Count 9.3 x10^3/uL (4.0-11.0) Red Blood Count 3.29 x10^6/uL (4.30-5.70) Hemoglobin 10.3 g/dL (13.0-17.5) Hematocrit 30.4 % (39.0-53.0) Mean Corpuscular Volume 92 fL (79-100) Mean Corpuscular Hemoglobin 31 pg (25-35) Mean Corpuscular Hemoglobin Concent 34 g/dL (31-37) Red Cell Distribution Width 17.3 % (11.5-14.5) Platelet Count 291 x10^3/uL (140-400) Neutrophils (%) (Auto) 78 % (31-73) Lymphocytes (%) (Auto) 13 % (24-48) Monocytes (%) (Auto) 9 % (0-9) Eosinophils (%) (Auto) 0 % (0-3) Basophils (%) (Auto) 0 % (0-3) Neutrophils # (Auto) 7.3 x10^3uL (1.8-7.7) Lymphocytes # (Auto) 1.2 x10^3/uL (1.0-4.8) Monocytes # (Auto) 0.8 x10^3/uL (0.0-1.1) Eosinophils # (Auto) 0.0 x10^3/uL (0.0-0.7) Basophils # (Auto) 0.0 x10^3/uL (0.0-0.2) Sodium Level 137 mmol/L (136-145) Potassium Level 4.1 mmol/L (3.5-5.1) Chloride Level 100 mmol/L (98-107) Carbon Dioxide Level 28 mmol/L (21-32) Anion Gap 9 (6-14) Blood Urea Nitrogen 37 mg/dL (8-26) Creatinine 6.5 mg/dL (0.7-1.3) Estimated GFR (Cockcroft-Gault) 9.3 Glucose Level 113 mg/dL (70-99) Calcium Level 7.5 mg/dL (8.5-10.1) Phosphorus Level 5.1 mg/dL (2.6-4.7) Albumin 1.6 g/dL (3.4-5.0) Microbiology 06/30/18 Urine Culture - Final, Complete 06/30/18 Urine Culture Result 1 (LINH) - Final, Complete Medications Current Medications Morphine Sulfate (Morphine Sulfate) 4 mg 1X ONCE IV Last administered on 06/29/18at 11:40; Start 06/29/18 at 11:30; Stop 06/29/18 at 11:31; Status DC Ondansetron HCl (Zofran) 4 mg 1X ONCE IV Last administered on 06/29/18at 11:44; Start 06/29/18 at 11:45; Stop 06/29/18 at 11:46; Status DC Ondansetron HCl (Zofran) 4 mg STK-MED ONCE .ROUTE ; Start 06/29/18 at 11:43; Stop 06/29/18 at 11:44; Status DC Ondansetron HCl (Zofran) 4 mg PRN Q8HRS PRN IV NAUSEA/VOMITING; Start 06/29/18 at 12:15; Stop 06/30/18 at 12:14; Status DC Morphine Sulfate (Morphine Sulfate) 4 mg 1X ONCE IV Last administered on 06/29/18at 13:25; Start 06/29/18 at 13:30; Stop 06/29/18 at 13:31; Status DC Clonidine HCl (Catapres) 0.1 mg BID PO Last administered on 07/05/18at 08:55; Start 06/29/18 at 21:00 Cyanocobalamin (Vitamin B-12) 1,000 mcg DAILY PO Last administered on 07/05/18at 08:52; Start 06/29/18 at 16:30 Sevelamer Carbonate (Renvela) 800 mg TIDWMEALS PO Last administered on 07/05/18at 12:50; Start 06/29/18 at 17:00 Hydrocortisone (Cortef) 20 mg DAILYWBKFT PO Last administered on 07/02/18at 08:55; Start 06/29/18 at 16:30; Stop 07/02/18 at 09:53; Status DC Multivitamins (Thera M Plus) 1 tab DAILY PO Last administered on 07/05/18 08:52; Start 06/29/18 at 16:30 Olanzapine (ZyPREXA) 20 mg QHS PO Last administered on 07/04/18at 19:50; Start 06/29/18 at 21:00 Pantoprazole Sodium (Protonix) 40 mg DAILYAC PO Last administered on 06/29/18 18:31; Start 06/29/18 at 16:30; Stop 07/01/18 at 07:33; Status DC Heparin Sodium (Porcine) (Heparin Sodium) 5,000 unit Q8HRS SQ Last administered on 07/05/18 05:57; Start 06/29/18 at 22:00 Acetaminophen (Tylenol) 650 mg 1X ONCE PO Last administered on 06/29/18 18:32; Start 06/29/18 at 16:30; Stop 06/29/18 at 16:31; Status DC Oxycodone/ Acetaminophen (Percocet 5/325) 1 tab PRN Q4HRS PRN PO PAIN Last administered on 07/05/18 10:18; Start 06/29/18 at 20:00 Iohexol (Omnipaque 350 Mg/ml) 75 ml 1X ONCE IV Last administered on 06/29/18at 21:01; Start 06/29/18 at 21:00; Stop 06/29/18 at 21:03; Status DC Labetalol HCl (Normodyne Iv Push) 10 mg PRN Q10MIN PRN IVP HYPERTENSION, SEE COMMENTS; Start 06/29/18 at 21:15 Acetaminophen (Tylenol) 650 mg PRN Q6HRS PRN PO TEMP > 100.4F; Start 06/29/18 at 21:15 Acetaminophen (Tylenol Supp) 650 mg PRN Q4HRS PRN [place] TEMP > 100.4F; Start 06/29/18 at 21:15 Aspirin (Ecotrin) 325 mg DAILYWBKFT PO Last administered on 07/05/18at 08:52; Start 06/30/18 at 08:00 Aspirin (Aspirin Rectal Supp) 300 mg PRN DAILY PRN NH IF UNABLE TO TAKE PO; Start 06/29/18 at 21:15 Morphine Sulfate (Morphine Sulfate) 2 mg PRN Q2HR PRN IV SEVERE PAIN Last administered on 07/05/18at 09:56; Start 06/29/18 at 22:30 Levetiracetam 500 mg/Dextrose 105 ml @ 420 mls/hr Q12HR IV Last administered on 07/05/18at 08:55; Start 06/30/18 at 00:00 Levetiracetam 1000 mg/Dextrose 110 ml @ 440 mls/hr 1X ONCE IV Last administered on 06/30/18at 02:25; Start 06/30/18 at 02:30; Stop 06/30/18 at 02:44; Status DC Lorazepam (Ativan) 1 mg PRN Q2HRS PRN IV TREMORS; Start 06/30/18 at 02:00 Fosphenytoin Sodium 1390 mg/ Sodium Chloride 77.8 ml @ 311.2 mls/ hr 1X ONCE IV Last administered on 06/30/18at 04:44; Start 06/30/18 at 05:00; Stop 06/30/18 at 05:14; Status DC Propofol 100 ml @ As Directed STK-MED ONCE IV ; Start 06/30/18 at 05:58; Stop 06/30/18 at 05:59; Status DC Succinylcholine Chloride (Anectine) 200 mg STK-MED ONCE .ROUTE ; Start 06/30/18 at 05:59; Stop 06/30/18 at 06:00; Status DC Propofol 100 ml @ 1.39 mls/hr 1X ONCE IV Last administered on 06/30/18at 06:30; Start 06/30/18 at 06:30; Stop 07/01/18 at 17:31; Status DC Succinylcholine Chloride (Anectine) 200 mg 1X ONCE IV Last administered on 06/30/18at 06:21; Start 06/30/18 at 06:30; Stop 06/30/18 at 06:31; Status DC Propofol 100 ml @ 0 mls/hr CONT PRN IV SEE I/O RECORD Last administered on 07/03/18at 02:50; Start 06/30/18 at 06:30 Fentanyl Citrate 30 ml @ 0 mls/hr CONT PRN IV SEE PROTOCOL; Start 06/30/18 at 06:30; Stop 07/03/18 at 17:50; Status DC Midazolam HCl 100 ml @ 0 mls/hr CONT PRN IV SEE PROTOCOL; Start 06/30/18 at 06:30; Stop 07/03/18 at 17:50; Status DC Fosphenytoin Sodium (Cerebyx) 100 mg Q8HRS IV Last administered on 07/05/18at 05:49; Start 06/30/18 at 14:00 Hydrocortisone Sodium Succinate (Solu-CORTEF) 100 mg Q8HRS IV Last administered on 07/05/18at 05:48; Start 06/30/18 at 14:00 Lansoprazole (Prevacid) 30 mg DAILYAC NG Last administered on 07/05/18at 08:52; Start 07/01/18 at 07:30 Sodium Chloride 1,000 ml @ 1,000 mls/hr Q1H PRN IV hypotension; Start 07/01/18 at 08:00; Stop 07/01/18 at 18:00; Status DC Albumin Human 200 ml @ 200 mls/hr 1X PRN PRN IV Hypotension; Start 07/01/18 at 08:00; Stop 07/01/18 at 18:00; Status DC Acetaminophen (Tylenol) 500 mg 1X PRN PRN PO MILD PAIN / TEMP; Start 07/01/18 at 07:45; Stop 07/01/18 at 18:00; Status DC Diphenhydramine HCl (Benadryl) 25 mg 1X PRN PRN IV ITCHING; Start 07/01/18 at 07:45; Stop 07/01/18 at 18:00; Status DC Diphenhydramine HCl (Benadryl) 25 mg 1X PRN PRN IV ITCHING; Start 07/01/18 at 07:45; Stop 07/01/18 at 18:00; Status DC Sodium Chloride (Normal Saline Flush) 10 ml 1X PRN PRN IV AP catheter pack; Start 07/01/18 at 07:45; Stop 07/01/18 at 18:00; Status DC Sodium Chloride (Normal Saline Flush) 10 ml 1X PRN PRN IV STOKER INSTALLER catheter pack; Start 07/01/18 at 07:45; Stop 07/01/18 at 18:00; Status DC Sodium Chloride 1,000 ml @ 400 mls/hr Q2H30M PRN IV PATENCY; Start 07/01/18 at 08:00; Stop 07/01/18 at 18:00; Status DC Info (PHARMACY MONITORING -- do not chart) 1 each PRN DAILY PRN MC SEE COMMENTS; Start 07/01/18 at 08:00; Stop 07/04/18 at 07:54; Status DC Gentamicin Sulfate (Gentak) 0.25 inch [id number] OU ; Start 07/02/18 at 23:00; Status Cancel Tobramycin Sulfate (Tobrex Ophth Soln) 2 drop Q4HRS OU Last administered on 07/05/18at 08:53; Start 07/03/18 at 00:00; Stop 07/05/18 at 13:05; Status DC Multi-Ingred Cream/Lotion/Oil/ Oint (Artificial Tears Eye Ointment) 1 juliette PRN Q1HR PRN OU DRY EYE; Start 07/03/18 at 18:45 Sodium Chloride 1,000 ml @ 1,000 mls/hr Q1H PRN IV hypotension; Start 07/04/18 at 07:47; Stop 07/04/18 at 13:46; Status DC Albumin Human 200 ml @ 200 mls/hr 1X PRN PRN IV Hypotension; Start 07/04/18 at 08:00; Stop 07/04/18 at 13:59; Status DC Acetaminophen (Tylenol) 500 mg 1X PRN PRN PO MILD PAIN / TEMP; Start 07/04/18 at 08:00; Stop 07/05/18 at 07:59; Status DC Diphenhydramine HCl (Benadryl) 25 mg 1X PRN PRN IV ITCHING; Start 07/04/18 at 08:00; Stop 07/05/18 at 07:59; Status DC Diphenhydramine HCl (Benadryl) 25 mg 1X PRN PRN IV ITCHING; Start 07/04/18 at 08:00; Stop 07/05/18 at 07:59; Status DC Sodium Chloride (Normal Saline Flush) 10 ml 1X PRN PRN IV AP catheter pack; Start 07/04/18 at 08:00; Stop 07/05/18 at 07:59; Status DC Sodium Chloride (Normal Saline Flush) 10 ml 1X PRN PRN IV STOKER INSTALLER catheter pack; St art 07/04/18 at 08:00; Stop 07/05/18 at 07:59; Status DC Sodium Chloride 1,000 ml @ 400 mls/hr Q2H30M PRN IV PATENCY; Start 07/04/18 at 07:47; Stop 07/04/18 at 19:46; Status DC Info (PHARMACY MONITORING -- do not chart) 1 each PRN DAILY PRN MC SEE LANDON NTS; Start 07/04/18 at 08:00 Ciprofloxacin (Ciloxan Ophth) 2 drop Q1H OU ; Start 07/05/18 at 13:15 Active Scripts Active Clonidine Hcl 0.1 Mg Tablet 0.1 Mg PO BID [Pantoprazole] 40 MG Tablet.dr 40 Mg PO DAILYAC MDD 1 Renvela (Sevelamer Carbonate) 800 Mg Tablet 800 Mg PO TIDWMEALS MDD 1 Reported Depakote (Divalproex Sodium) 500 Mg Tablet.dr 1,500 Mg PO HS Hydroxyzine Hcl 50 Mg Tablet 50 Mg PO TID Olanzapine 10 Mg Tablet 30 Mg PO HS Ibuprofen 400 Mg Tablet 400 Mg PO PRN Q6HRS PRN Benztropine Mesylate 1 Mg Tablet 1 Tab PO BID PRN Haloperidol 10 Mg Tablet 20 Mg PO HS Multivitamins (Multivitamin) 1 Each Tablet 1 Tab PO DAILY Vitamin B-12 (Cyanocobalamin (Vitamin B-12)) 1,000 Mcg Tablet 1 Tab PO DAILY Olanzapine 20 Mg Tablet 20 Mg PO QHS Cortef (Hydrocortisone) 20 Mg Tablet 20 Mg PO DAILY Vitals/I & O Vital Sign - Last 24 Hours 07/04/18 07/04/18 07/04/18 07/04/18 15:17 15:19 16:00 16:17 Temp 97.8 97.8 Pulse 84 Resp 16 16 12 16 B/P (MAP) 157/87 (110) Pulse Ox 93 O2 Delivery Room Air Room Air Room Air 07/04/18 07/04/18 07/04/18 07/04/18 19:00 19:51 20:00 20:30 Temp 97.9 97.9 Pulse 87 Resp 16 15 16 B/P (MAP) 147/97 (114) Pulse Ox 92 93 93 O2 Delivery Room Air Room Air Room Air 07/04/18 07/04/18 07/05/18 07/05/18 21:40 23:33 03:00 04:20 Temp 98.4 97.9 98.4 97.9 Pulse 87 79 81 79 Resp 18 20 B/P (MAP) 147/97 150/95 (113) 156/110 (125) 165/112 (129) Pulse Ox 93 90 O2 Delivery Room Air Room Air 07/05/18 07/05/18 07/05/18 07/05/18 07:00 08:20 08:55 09:56 Temp 98.1 98.1 Pulse 87 87 Resp 18 B/P (MAP) 144/91 (108) 144/91 Pulse Ox 93 O2 Delivery Room Air Room Air Room Air O2 Flow Rate 3.0 07/05/18 07/05/18 07/05/18 07/05/18 10:18 10:25 11:00 11:15 Temp 98.2 98.2 Pulse 90 Resp 18 B/P (MAP) 134/92 (106) Pulse Ox 95 O2 Delivery Room Air Room Air Room Air Room Air O2 Flow Rate 3.0 Intake and Output 07/04/18 07/04/18 07/05/18 14:59 22:59 06:59 Output Total 120 ml 0 ml 0 ml Balance -120 ml 0 ml 0 ml MAYELIN AN MD July 05, 2018 13:38
[2018-07-05] MEDS ORDERED: BENZTROPINE MESYLATE 1 MG TABLET. PO PRN (13:45)
[2018-07-05] MEDS: hydrOXYzine PAMOATE 25 MG CAPSULE PO SCH ×2 (14:41→20:23)
--- NOTE | 2018-07-05 15:19 | PDOC ---
PROGRESS NOTES Assessment Assessment PRES. Vision loss with corneal cloudiness (central + peripheral etiologies ?) Hypertensive emergency, BP 212/133 mmHg. Seizure. Metabolic encephalopathy. Vision loss. Petechial cerebral hemorrhage. Renal failure. UTI? Pleural effusion. Anemia. Hypocalcemia. Schizophrenia. Bipolar disorder. RECOMMENDATIONS/PLAN: ASA 325 mg daily, OK. Continue Keppra 500 mg bid. BP control. Treat medical diseases. Consulted Ophthalmology and could be seen on 07/05/18. OT/PT. Past Medical History GI: Hemorrhoids, Other (diarrhea) Heme/Onc: Cancer (thyroid (Para?)) Psych: Anxiety, Depression, Schizophrenia Renal/: Acute renal failure Endocrine: Other (Arron's disease) Past Surgical History Cholecystectomy, Other (cervical fusion, left knee, parathyroidectomy) Family History Hypertension Social History He is homeless, he denied earlier having use of alcohol, tobacco, or street drugs. ROS Negative for fever, chills, weight loss, shortness of breath, chest pain, indigestion, hematochezia, melena, and dysuria. Full 14-point review of systems is negative. ALLERGY: NKDA MEDICATIONS: Refer to MAR PHYSICAL EXAMINATION: General appearance in subacute distress. HEENT: Normocephalic and nontraumatic. Eyes, nose, ears, and throat are unremarkable. Neck is supple. No lymphadenopathy. No Crepitus. Cardiovascular: S1, S2, regular rate and rhythm. Pulmonary: Decreased to auscultation bilaterally. Abdomen: Bowel sounds are positive. Extremities: No rash, lesions, or edema. No restriction of range of motion NEUROLOGICAL EXAMINATION: Drowsiness. Partially oriented to time, place but knew his familiar person. PERRL. EOMI. Corneal cloudiness noted. Sclera congestion noted. Only has light office assistant receptionist and sight of close finger movements. CN: no focal findings. Muscle tone: within normal. Muscle strength: Moves all extremities to stimuli. DTR: 1-2 Plantar reflex: Neutral response bilaterally Gait: Not able to walk. Sensory exam: Withdraw response noted. Not able to access cerebellar signs this time. F-T-N test not performed due to not follow commands. Objective Objective Vital Signs Date Time Temp Pulse Resp B/P (MAP) Pulse Ox O2 Delivery O2 Flow Rate FiO2 07/05/18 15:00 98.6 93 18 140/100 (113) 95 Room Air 3.0 98.6 Intake and Output 5/15/19 07:00 Output Total 80 ml Balance -80 ml Output Urine Total 80 ml Vitals Signs Vitals VS - Last 72 Hours, by Label Date Time Temp Pulse Resp B/P (MAP) Pulse Ox O2 Delivery O2 Flow Rate FiO2 07/05/18 15:00 98.6 93 18 140/100 (113) 95 Room Air 3.0 98.6 07/05/18 14:41 Room Air 07/05/18 11:15 Room Air 07/05/18 11:00 98.2 90 18 134/92 (106) 95 Room Air 3.0 98.2 07/05/18 10:25 Room Air 07/05/18 10:18 Room Air 07/05/18 09:56 Room Air 07/05/18 08:55 87 144/91 07/05/18 08:20 Room Air 07/05/18 07:00 98.1 87 18 144/91 (108) 93 Room Air 3.0 98.1 07/05/18 04:20 79 165/112 (129) 07/05/18 03:00 97.9 81 20 156/110 (125) 90 Room Air 97.9 07/04/18 23:33 98.4 79 18 150/95 (113) 93 Room Air 98.4 07/04/18 21:40 87 147/97 07/04/18 20:30 16 93 07/04/18 20:00 Room Air 07/04/18 19:51 15 93 Room Air 07/04/18 19:00 97.9 87 16 147/97 (114) 92 Room Air 97.9 07/04/18 16:17 16 07/04/18 16:00 97.8 84 12 157/87 (110) 93 Room Air 97.8 07/04/18 15:19 16 Room Air 07/04/18 15:17 16 Room Air 07/04/18 11:50 77 127/74 07/04/18 11:00 98.3 64 10 144/84 (104) 98 Room Air 98.3 07/04/18 10:21 13 94 Room Air 3.0 07/04/18 10:00 70 12 131/76 (94) 99 Room Air 07/04/18 09:00 79 13 141/97 (112) 98 Room Air 07/04/18 08:00 Room Air 07/04/18 08:00 81 13 133/77 (95) 95 Room Air 07/04/18 07:00 98.0 74 10 135/83 (100) 96 Room Air 98.0 Laboratory Laboratory Laboratory Tests Test 07/05/18 05:05 White Blood Count 9.3 x10^3/uL (4.0-11.0) Red Blood Count 3.29 x10^6/uL (4.30-5.70) Hemoglobin 10.3 g/dL (13.0-17.5) Hematocrit 30.4 % (39.0-53.0) Mean Corpuscular Volume 92 fL (79-100) Mean Corpuscular Hemoglobin 31 pg (25-35) Mean Corpuscular Hemoglobin Concent 34 g/dL (31-37) Red Cell Distribution Width 17.3 % (11.5-14.5) Platelet Count 291 x10^3/uL (140-400) Neutrophils (%) (Auto) 78 % (31-73) Lymphocytes (%) (Auto) 13 % (24-48) Monocytes (%) (Auto) 9 % (0-9) Eosinophils (%) (Auto) 0 % (0-3) Basophils (%) (Auto) 0 % (0-3) Neutrophils # (Auto) 7.3 x10^3uL (1.8-7.7) Lymphocytes # (Auto) 1.2 x10^3/uL (1.0-4.8) Monocytes # (Auto) 0.8 x10^3/uL (0.0-1.1) Eosinophils # (Auto) 0.0 x10^3/uL (0.0-0.7) Basophils # (Auto) 0.0 x10^3/uL (0.0-0.2) Sodium Level 137 mmol/L (136-145) Potassium Level 4.1 mmol/L (3.5-5.1) Chloride Level 100 mmol/L (98-107) Carbon Dioxide Level 28 mmol/L (21-32) Anion Gap 9 (6-14) Blood Urea Nitrogen 37 mg/dL (8-26) Creatinine 6.5 mg/dL (0.7-1.3) Estimated GFR (Cockcroft-Gault) 9.3 Glucose Level 113 mg/dL (70-99) Calcium Level 7.5 mg/dL (8.5-10.1) Phosphorus Level 5.1 mg/dL (2.6-4.7) Albumin 1.6 g/dL (3.4-5.0) Microbiology 06/30/18 Urine Culture - Final, Complete 06/30/18 Urine Culture Result 1 (LINH) - Final, Complete Medication Medications Current Medications Benztropine Mesylate (Cogentin) 1 mg PRN BID PRN PO EXTRAPYRAMIDAL EFFECTS; Start 07/05/18 at 13:45 Ciprofloxacin (Ciloxan Ophth) 2 drop Q1H OU ; Start 07/05/18 at 13:15 Divalproex Sodium (Depakote Er) 1,500 mg QHS PO ; Start 07/05/18 at 21:00 Hydroxyzine Pamoate (Vistaril) 50 mg TID PO Last administered on 07/05/18at 14:41; Start 07/05/18 at 14:00 Olanzapine (ZyPREXA) 30 mg QHS PO ; Start 07/05/18 at 21:00 Comment Review of Relevant I have reviewed the following items medardo (where applicable) has been applied. ROSHNI BASHIR MD July 05, 2018 15:19
--- NOTE | 2018-07-05 15:53 | NUR ---
Pt finally able to void. Voided 350cc of dark, brown color urine. Bladder scan had no residual. Cont. monitor.
--- NOTE | 2018-07-05 16:01 | NUR ---
SUE faxed medicaid application to [facility] Int[facility] and left a voice mail to [facility] regarding OP HD. Discussed with RN.
[2018-07-05] MEDS: DIVALPROEX EXTENDED RELEASE 500 MG TAB.ER.24H. PO SCH (20:24)
[2018-07-05] MEDS: OLANZapine 5 MG TABLET PO SCH (20:24)
[2018-07-06] MEDS: CIPROFLOXACIN 0.3% OPHTH SOLUTION 5ML BOTTLE. OU SCH ×24 (00:57→23:08)
[2018-07-06 03:05] VITALS: BP 148/92
[2018-07-06 04:20] LABS: BASO % 0 % (0-3); EOS # 0.1 x10^3/uL (0.0-0.7); EOS % 1 % (0-3); HEMOGLOBIN 10.3 g/dL (13.0-17.5); LYMPH # 1.1 x10^3/uL (1.0-4.8); LYMPH % 10 % (24-48); MEAN CORPUSCULAR HEMOGLOBIN 31 pg (25-35); MEAN CORPUSCULAR HGB CONC 33 g/dL (31-37); MEAN CORPUSCULAR VOLUME 92 fL (79-100); MONO # 0.8 x10^3/uL (0.0-1.1); MONO % 7 % (0-9); NEUT # 8.8 x10^3uL (1.8-7.7); NEUT % 82 % (31-73); PLATELET COUNT 312 x10^3/uL (140-400); RED BLOOD COUNT 3.36 x10^6/uL (4.30-5.70); RED CELL DISTRIBUTION WIDTH 17.4 % (11.5-14.5); WHITE BLOOD COUNT 10.8 x10^3/uL (4.0-11.0)
[2018-07-06 04:39] LABS: ALBUMIN 1.6 g/dL (3.4-5.0); CALCIUM 7.4 mg/dL (8.5-10.1); CREATININE 7.7 mg/dL (0.7-1.3); GFR 7.7; POTASSIUM 4.3 mmol/L (3.5-5.1)
[2018-07-06] MEDS: HEPARIN for SUB-Q USE 5,000 UNIT/ML VIAL. SQ SCH ×3 (06:21→22:03)
[2018-07-06] MEDS: HYDROCORTISONE SOD SUCC/PF 100 MG/2 ML VIAL. IV SCH ×3 (06:26→21:58)
[2018-07-06] MEDS: FOSPHENYTOIN 100 MG/2 ML VIAL. IV SCH ×3 (06:27→21:58)
[2018-07-06] MEDS ORDERED: IV NORMAL SALINE 1000ML BAG 1,000 ML IV PRN ×2 (06:30)
[2018-07-06] MEDS ORDERED: DIALYSIS PATIENT. MC PRN (06:30)
[2018-07-06] MEDS ORDERED: diphenhydrAMINE 50 MG/ML VIAL IV PRN ×2 (06:30)
--- NOTE | 2018-07-06 06:34 | NUR ---
Patient did not void this shift. Bladder scanned at this time for 282ml. Patient was instructed to attempt to void but refused, stating "i don't have to go" repeatedly despite education by this RN.
[2018-07-06] MEDS: hydrOXYzine PAMOATE 25 MG CAPSULE PO SCH ×3 (09:00→19:51)
[2018-07-06] MEDS: CYANOCOBALAMIN (VITAMIN B-12) 1,000 MCG TABLET. PO SCH (10:46)
[2018-07-06] MEDS: ASPIRIN ENTERIC COATED 325 MG TABLET.DR. PO SCH (10:47)
[2018-07-06] MEDS: SEVELAMER CARBONATE 800 MG TABLET. PO SCH ×3 (10:47→17:28)
[2018-07-06] MEDS: MULTIVITAMIN with MINERAL TABLET. PO SCH (10:47)
[2018-07-06] MEDS: cloNIDine HCL 0.1 MG TABLET PO SCH ×2 (10:47→19:53)
[2018-07-06] MEDS: LANSOPRAZOLE 30 MG TAB.RAP.DR NG SCH (10:47)
[2018-07-06] MEDS: oxyCODONE/APAP 5/325 1 TAB TABLET PO PRN (10:48)
[2018-07-06] MEDS: levETIRAcetam 500 MG in IV DEXTROSE 5% 100ML 100 ML IV SCH ×2 (10:52→19:51)
[2018-07-06] MEDS: MORPHINE SULFATE 2 MG/ML VIAL. IV PRN ×3 (12:37→19:51)
--- NOTE | 2018-07-06 12:53 | PDOC ---
SUBJECTIVE ROS Seen on HD, No complaints. States had 350 ml of Urine yesterday, None since this am OBJECTIVE Vital Signs Vital Signs Date Time Temp Pulse Resp B/P (MAP) Pulse Ox O2 Delivery O2 Flow Rate FiO2 07/06/18 12:37 16 Room Air 07/06/18 10:47 85 156/100 07/06/18 03:05 98.2 91 98.2 07/05/18 15:00 3.0 I & 0 Intake and Output 07/06/18 07:00 Intake Total 780 ml Output Total 0 ml Balance 780 ml Intake Oral 780 ml Output Urine Total 0 ml PHYSICAL EXAM Physical Exam General NAD , sitting up in chair with eyes closed HEENT: OM moist Neck: Supple Lungs- CTA bilat CV RRR Ext- No LE edema Gu- Pete dced last night Neuro- Alert xO x3 DIAGNOSIS/ASSESSMENT Assessment & Plan New ESRD - S/P Renal Bx 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 May need bladder scan and straight cath if unable to void Seen on HD , tolerating well, continue as ordered 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 Good pasture's syndrome- post renal Bx No Obvious Lung involvement Anti GBM positive, 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 Malignant HTN - Controlled now Seizures - No recent Sz activity per neurology Posterior reversible encephalopathy syndrome,(PRES) Neurology following 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 Anemia - Hgb stable HEP B- Positive Ab, repeat negative 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 Per primary COMMENT/RELEVANT DATA Meds Current Medications Medications (Trade) Dose Ordered Sig/Essence Start Time Stop Time Status Last Admin Dose Admin Acetaminophen (Tylenol Supp) 650 mg PRN Q4HRS PRN 06/29/18 21:15 Acetaminophen (Tylenol) 500 mg 1X PRN PRN 07/04/18 08:00 07/05/18 07:59 DC Albumin Human 200 ml @ 200 mls/hr 1X PRN PRN 07/04/18 08:00 07/04/18 13:59 DC Aspirin (Aspirin Rectal Supp) 300 mg PRN DAILY PRN 06/29/18 21:15 Aspirin (Ecotrin) 325 mg [id number] 06/30/18 08:00 07/06/18 10:47 325 MG Benztropine Mesylate (Cogentin) 1 mg PRN BID PRN 07/05/18 13:45 Ciprofloxacin (Ciloxan Ophth) 2 drop Q1H 07/05/18 13:15 07/06/18 12:38 2 DROP Clonidine HCl (Catapres) 0.1 mg BID 06/29/18 21:00 07/06/18 10:47 0.1 MG Cyanocobalamin (Vitamin B-12) 1,000 mcg DAILY 06/29/18 16:30 07/06/18 10:46 1,000 MCG Diphenhydramine HCl (Benadryl) 25 mg 1X PRN PRN 07/06/18 06:30 07/07/18 06:29 Divalproex Sodium (Depakote Er) 1,500 mg QHS 07/05/18 21:00 07/05/18 20:24 1,500 MG Fentanyl Citrate 30 ml @ 0 mls/hr CONT PRN 06/30/18 06:30 07/03/18 17:50 DC Fosphenytoin Sodium (Cerebyx) 100 mg Q8HRS 06/30/18 14:00 07/06/18 06:27 100 MG Fosphenytoin Sodium 1390 mg/ Sodium Chloride 77.8 ml @ 311.2 mls/ hr 1X ONCE 06/30/18 05:00 06/30/18 05:14 DC 06/30/18 04:44 311.2 MLS/HR Gentamicin Sulfate (Gentak) 0.25 inch [id number] 07/02/18 23:00 Cancel Heparin Sodium (Porcine) (Heparin Sodium) 5,000 unit Q8HRS 06/29/18 22:00 07/06/18 06:21 5,000 UNIT Hydrocortisone (Cortef) 20 mg DAILYWBKFT 06/29/18 16:30 07/02/18 09:53 DC 07/02/18 08:55 20 MG Hydrocortisone Sodium Succinate (Solu-CORTEF) 100 mg Q8HRS 06/30/18 14:00 07/06/18 06:26 100 MG Hydroxyzine Pamoate (Vistaril) 50 mg TID 07/05/18 14:00 07/05/18 20:23 50 MG Info (PHARMACY MONITORING -- do not chart) 1 each PRN DAILY PRN 07/06/18 06:30 Iohexol (Omnipaque 350 Mg/ml) 75 ml 1X ONCE 06/29/18 21:00 06/29/18 21:03 DC 06/29/18 21:01 75 ML Labetalol HCl (Normodyne Iv Push) 10 mg PRN Q10MIN PRN 06/29/18 21:15 Lansoprazole (Prevacid) 30 mg DAILYAC 07/01/18 07:30 07/06/18 10:47 30 MG Levetiracetam 1000 mg/Dextrose 110 ml @ 440 mls/hr 1X ONCE 06/30/18 02:30 06/30/18 02:44 DC 06/30/18 02:25 440 MLS/HR Levetiracetam 500 mg/Dextrose 105 ml @ 420 mls/hr Q12HR 06/30/18 00:00 07/06/18 10:52 420 MLS/HR Lorazepam (Ativan) 1 mg PRN Q2HRS PRN 06/30/18 02:00 Midazolam HCl 100 ml @ 0 mls/hr CONT PRN 06/30/18 06:30 07/03/18 17:50 DC Morphine Sulfate (Morphine Sulfate) 2 mg PRN Q2HR PRN 06/29/18 22:30 07/06/18 12:37 2 MG Multi-Ingred Cream/Lotion/Oil/ Oint (Artificial Tears Eye Ointment) 1 juliette PRN Q1HR PRN 07/03/18 18:45 Multivitamins (Thera M Plus) 1 tab DAILY 06/29/18 16:30 07/06/18 10:47 1 TAB Olanzapine (ZyPREXA) 30 mg QHS 07/05/18 21:00 07/05/18 20:24 30 MG Ondansetron HCl (Zofran) 4 mg PRN Q8HRS PRN 06/29/18 12:15 06/30/18 12:14 DC Oxycodone/ Acetaminophen (Percocet 5/325) 1 tab PRN Q4HRS PRN 06/29/18 20:00 07/06/18 10:48 1 TAB Pantoprazole Sodium (Protonix) 40 mg DAILYAC 06/29/18 16:30 07/01/18 07:33 DC 06/29/18 18:31 40 MG Propofol 100 ml @ 0 mls/hr CONT PRN 06/30/18 06:30 07/05/18 15:46 DC 07/03/18 02:50 16.682 MLS/HR Sevelamer Carbonate (Renvela) 800 mg TIDWMEALS 06/29/18 17:00 07/06/18 12:37 800 MG Sodium Chloride 1,000 ml @ 400 mls/hr Q2H30M PRN 07/06/18 06:30 07/06/18 06:35 DC Sodium Chloride (Normal Saline Flush) 10 ml 1X PRN PRN 07/04/18 08:00 07/05/18 07:59 DC Succinylcholine Chloride (Anectine) 200 mg 1X ONCE 06/30/18 06:30 06/30/18 06:31 DC 06/30/18 06:21 200 MG Tobramycin Sulfate (Tobrex Oph Soln) 2 drop Q4HRS 07/03/18 00:00 07/05/18 13:05 DC 07/05/18 08:53 2 DROP Lab Laboratory Tests Test 07/06/18 03:40 White Blood Count 10.8 x10^3/uL (4.0-11.0) Red Blood Count 3.36 x10^6/uL (4.30-5.70) Hemoglobin 10.3 g/dL (13.0-17.5) Hematocrit 31.0 % (39.0-53.0) Mean Corpuscular Volume 92 fL (79-100) Mean Corpuscular Hemoglobin 31 pg (25-35) Mean Corpuscular Hemoglobin Concent 33 g/dL (31-37) Red Cell Distribution Width 17.4 % (11.5-14.5) Platelet Count 312 x10^3/uL (140-400) Neutrophils (%) (Auto) 82 % (31-73) Lymphocytes (%) (Auto) 10 % (24-48) Monocytes (%) (Auto) 7 % (0-9) Eosinophils (%) (Auto) 1 % (0-3) Basophils (%) (Auto) 0 % (0-3) Neutrophils # (Auto) 8.8 x10^3uL (1.8-7.7) Lymphocytes # (Auto) 1.1 x10^3/uL (1.0-4.8) Monocytes # (Auto) 0.8 x10^3/uL (0.0-1.1) Eosinophils # (Auto) 0.1 x10^3/uL (0.0-0.7) Basophils # (Auto) 0.0 x10^3/uL (0.0-0.2) Sodium Level 137 mmol/L (136-145) Potassium Level 4.3 mmol/L (3.5-5.1) Chloride Level 99 mmol/L (98-107) Carbon Dioxide Level 27 mmol/L (21-32) Anion Gap 11 (6-14) Blood Urea Nitrogen 54 mg/dL (8-26) Creatinine 7.7 mg/dL (0.7-1.3) Estimated GFR (Cockcroft-Gault) 7.7 Glucose Level 114 mg/dL (70-99) Calcium Level 7.4 mg/dL (8.5-10.1) Phosphorus Level 5.0 mg/dL (2.6-4.7) Albumin 1.6 g/dL (3.4-5.0) Results All relevant outside records, renal labs, imaging studies, telemetry/EKG's were reviewed. EDEL ADKINS MD July 06, 2018 12:53
--- NOTE | 2018-07-06 15:24 | PDOC ---
PROGRESS NOTES Assessment Assessment PRES. Vision loss with corneal cloudiness, infection (central + peripheral etiologies) Hypertensive emergency, BP 212/133 mmHg. Seizure. Metabolic encephalopathy. Vision loss. Petechial cerebral hemorrhage. Renal failure. UTI? Pleural effusion. Anemia. Hypocalcemia. Schizophrenia. Bipolar disorder. RECOMMENDATIONS/PLAN: ASA 325 mg daily, OK. Continue Keppra 500 mg bid. BP control. Treat medical diseases. Consulted Ophthalmology and antibiotic eye drops q1h. OT/PT. Past Medical History GI: Hemorrhoids, Other (diarrhea) Heme/Onc: Cancer (thyroid (Para?)) Psych: Anxiety, Depression, Schizophrenia Renal/: Acute renal failure Endocrine: Other (Arron's disease) Past Surgical History Cholecystectomy, Other (cervical fusion, left knee, parathyroidectomy) Family History Hypertension Social History He is homeless, he denied earlier having use of alcohol, tobacco, or street drugs. ROS Negative for fever, chills, weight loss, shortness of breath, chest pain, indigestion, hematochezia, melena, and dysuria. Full 14-point review of systems is negative. ALLERGY: NKDA MEDICATIONS: Refer to MAR PHYSICAL EXAMINATION: General appearance in subacute distress. HEENT: Normocephalic and nontraumatic. Eyes, nose, ears, and throat are unremarkable. Neck is supple. No lymphadenopathy. No Crepitus. Cardiovascular: S1, S2, regular rate and rhythm. Pulmonary: Decreased to auscultation bilaterally. Abdomen: Bowel sounds are positive. Extremities: No rash, lesions, or edema. No restriction of range of motion NEUROLOGICAL EXAMINATION: Drowsiness. Partially oriented to time, place but knew his familiar person. PERRL. EOMI. Corneal cloudiness. Sclera congestion. 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 CN: no focal findings. Muscle tone: within normal. Muscle strength: Moves all extremities to stimuli. DTR: 1-2 Plantar reflex: Neutral response bilaterally Gait: Not able to walk. Sensory exam: Withdraw response noted. Not able to access cerebellar signs this time. F-T-N test not performed due to not follow commands. Objective Objective Vital Signs Date Time Temp Pulse Resp B/P (MAP) Pulse Ox O2 Delivery O2 Flow Rate FiO2 07/06/18 13:07 16 Room Air 07/06/18 10:47 85 156/100 07/06/18 03:05 98.2 91 98.2 07/05/18 15:00 3.0 Intake and Output 07/06/18 07:00 Intake Total 780 ml Output Total 0 ml Balance 780 ml Intake Oral 780 ml Output Urine Total 0 ml Vitals Signs Vitals VS - Last 72 Hours, by Label Date Time Temp Pulse Resp B/P (MAP) Pulse Ox O2 Delivery O2 Flow Rate FiO2 07/06/18 13:07 16 Room Air 07/06/18 12:37 16 Room Air 07/06/18 11:48 16 Room Air 07/06/18 10:48 16 Room Air 07/06/18 10:47 85 156/100 07/06/18 08:00 Room Air 07/06/18 03:05 98.2 93 20 148/92 (110) 91 Room Air 98.2 07/05/18 23:00 98.4 81 16 149/103 (118) 93 Room Air 98.4 07/05/18 20:30 Room Air 07/05/18 20:25 81 154/98 07/05/18 20:24 20 Room Air 07/05/18 19:00 98.2 81 16 154/98 (116) 95 Room Air 98.2 07/05/18 15:00 98.6 93 18 140/100 (113) 95 Room Air 3.0 98.6 07/05/18 14:41 Room Air 07/05/18 11:00 98.2 90 18 134/92 (106) 95 Room Air 3.0 98.2 07/05/18 10:18 Room Air 07/05/18 09:56 Room Air 07/05/18 08:55 87 144/91 07/05/18 08:20 Room Air 07/05/18 07:00 98.1 87 18 144/91 (108) 93 Room Air 3.0 98.1 Laboratory Laboratory Laboratory Tests Test 07/06/18 03:40 White Blood Count 10.8 x10^3/uL (4.0-11.0) Red Blood Count 3.36 x10^6/uL (4.30-5.70) Hemoglobin 10.3 g/dL (13.0-17.5) Hematocrit 31.0 % (39.0-53.0) Mean Corpuscular Volume 92 fL (79-100) Mean Corpuscular Hemoglobin 31 pg (25-35) Mean Corpuscular Hemoglobin Concent 33 g/dL (31-37) Red Cell Distribution Width 17.4 % (11.5-14.5) Platelet Count 312 x10^3/uL (140-400) Neutrophils (%) (Auto) 82 % (31-73) Lymphocytes (%) (Auto) 10 % (24-48) Monocytes (%) (Auto) 7 % (0-9) Eosinophils (%) (Auto) 1 % (0-3) Basophils (%) (Auto) 0 % (0-3) Neutrophils # (Auto) 8.8 x10^3uL (1.8-7.7) Lymphocytes # (Auto) 1.1 x10^3/uL (1.0-4.8) Monocytes # (Auto) 0.8 x10^3/uL (0.0-1.1) Eosinophils # (Auto) 0.1 x10^3/uL (0.0-0.7) Basophils # (Auto) 0.0 x10^3/uL (0.0-0.2) Sodium Level 137 mmol/L (136-145) Potassium Level 4.3 mmol/L (3.5-5.1) Chloride Level 99 mmol/L (98-107) Carbon Dioxide Level 27 mmol/L (21-32) Anion Gap 11 (6-14) Blood Urea Nitrogen 54 mg/dL (8-26) Creatinine 7.7 mg/dL (0.7-1.3) Estimated GFR (Cockcroft-Gault) 7.7 Glucose Level 114 mg/dL (70-99) Calcium Level 7.4 mg/dL (8.5-10.1) Phosphorus Level 5.0 mg/dL (2.6-4.7) Albumin 1.6 g/dL (3.4-5.0) Microbiology 06/30/18 Urine Culture - Final, Complete 06/30/18 Urine Culture Result 1 (LINH) - Final, Complete Medication Medications Current Medications Diphenhydramine HCl (Benadryl) 25 mg 1X PRN PRN IV ITCHING; Start 07/06/18 at 06:30; Stop 07/07/18 at 06:29 Diphenhydramine HCl (Benadryl) 25 mg 1X PRN PRN IV ITCHING; Start 07/06/18 at 06:30; Stop 07/07/18 at 06:29 Divalproex Sodium (Depakote Er) 1,500 mg QHS PO Last administered on 07/05/18at 20:24; Start 07/05/18 at 21:00 Info (PHARMACY MONITORING -- do not chart) 1 each PRN DAILY PRN MC SEE COMMENTS ; Start 07/06/18 at 06:30 Olanzapine (ZyPREXA) 30 mg QHS PO Last administered on 07/05/18at 20:24; Start 07/05/18 at 21:00 Sodium Chloride 1,000 ml @ 400 mls/hr Q2H30M PRN IV PATENCY; Start 07/06/18 at 06:30; Stop 07/06/18 at 06:35; Status DC Sodium Chloride 1,000 ml @ 1,000 mls/hr Q1H PRN IV hypotension; Start 07/06/18 at 06:30; Stop 07/06/18 at 06:35; Status DC Comment Review of Relevant I have reviewed the following items medardo (where applicable) has been applied. ROSHNI BASHIR MD July 06, 2018 15:24
--- NOTE | 2018-07-06 15:40 | NUR ---
Was requested to pt's room per his friend. Patient had pulled out his left eye contact. Dr. Beavers was still on the floor and was informed. Dr. Beavers flushed and checked patient's right eye but did not see another eye contact. No new orders at this time. Will continue eye drops.
--- NOTE | 2018-07-06 15:58 | NUR ---
SUE phoned [facility] and requested for a transfer. executive pastry chef reported they are currently running full and a lot of people in ER hold room. executive pastry chef stated she will call SUE back after inquiring wether they will have an open bed.
--- NOTE | 2018-07-06 16:38 | NUR ---
SW following pt. [facility] does not have a bed today and they requested for SW to follow up tomorrow. Zeina is reviewing medicaid application. Will continue to follow.
[2018-07-06 17:20] VITALS: BP 153/100
[2018-07-06 19:49] VITALS: BP 149/110
[2018-07-06] MEDS: DIVALPROEX EXTENDED RELEASE 500 MG TAB.ER.24H. PO SCH (19:52)
[2018-07-06] MEDS: OLANZapine 5 MG TABLET PO SCH (19:52)
--- NOTE | 2018-07-06 21:19 | PDOC ---
PROGRESS NOTES Chief Complaint Chief Complaint Posterior reversible encephalopathy syndrome on admission hypertensive emergency resolved Seizure disorder and loss of airway requiring ICU stay and intubation during his admission Vision loss with corneal cloudiness (central + peripheral etiologies ?) recent onset, this was documented 2 days ago, started on Tobramycin, opthalmology consultation has been requested but not available at our institution, verbal recommendation from local ophtalmologist greatly appreciated. Most likely infection associated to the use of contact lenses. there were reports that they had been retrieved from the patients eyes on his 2 and 3rd hospital day but today he was rubbing his left eye and an old contact lens came out. Curiously is the eye where he has the better vision, he can count fingers with that eye and only sees light reflection on the left. Metabolic encephalopathy. Resolved Vision loss. Petechial cerebral hemorrhage. Renal failure. secondary to [place] biopsy proven as per review of records. UTI? Pleural effusion. Anemia. Hypocalcemia. Schizophrenia. Bipolar disorder. Newly started on dialysis Noncompliance Arron's Hep B Malignant HTN Plan; continue cipro ophtalmic efforts are being made to transfer to institution where ophthalmology services can evaluate his recent vision loss. institutions in the area at capacity and unable to accept in transfer, will try again tomorrow. continue current supportive measures will resume home meds further recommendations based on clincal course. History of Present Illness History of Present Illness Patient seen and examined in the ICU Patient is extubated on room air O2 sat at 98% He reports blindness in R eye, but stated can see out of L. When asking him how many fingers I had up he stated he could not see my hand. Eyes have Sclera edema, and yellow purulent discharge Discussed with RN and sister Reviewed notes Vitals Vitals Vital Signs Date Time Temp Pulse Resp B/P (MAP) Pulse Ox O2 Delivery O2 Flow Rate FiO2 07/06/18 20:59 Room Air 07/06/18 19:53 99 149/110 07/06/18 19:49 98.3 18 93 98.3 07/05/18 15:00 3.0 Physical Exam General: Other Heart: Regular rate, Normal S1, Normal S2 Lungs: Clear Abdomen: Normal bowel sounds, Soft Extremities: No cyanosis Skin: No rashes, Other Labs LABS Laboratory Tests Test 07/06/18 03:40 White Blood Count 10.8 x10^3/uL (4.0-11.0) Red Blood Count 3.36 x10^6/uL (4.30-5.70) Hemoglobin 10.3 g/dL (13.0-17.5) Hematocrit 31.0 % (39.0-53.0) Mean Corpuscular Volume 92 fL (79-100) Mean Corpuscular Hemoglobin 31 pg (25-35) Mean Corpuscular Hemoglobin Concent 33 g/dL (31-37) Red Cell Distribution Width 17.4 % (11.5-14.5) Platelet Count 312 x10^3/uL (140-400) Neutrophils (%) (Auto) 82 % (31-73) Lymphocytes (%) (Auto) 10 % (24-48) Monocytes (%) (Auto) 7 % (0-9) Eosinophils (%) (Auto) 1 % (0-3) Basophils (%) (Auto) 0 % (0-3) Neutrophils # (Auto) 8.8 x10^3uL (1.8-7.7) Lymphocytes # (Auto) 1.1 x10^3/uL (1.0-4.8) Monocytes # (Auto) 0.8 x10^3/uL (0.0-1.1) Eosinophils # (Auto) 0.1 x10^3/uL (0.0-0.7) Basophils # (Auto) 0.0 x10^3/uL (0.0-0.2) Sodium Level 137 mmol/L (136-145) Potassium Level 4.3 mmol/L (3.5-5.1) Chloride Level 99 mmol/L (98-107) Carbon Dioxide Level 27 mmol/L (21-32) Anion Gap 11 (6-14) Blood Urea Nitrogen 54 mg/dL (8-26) Creatinine 7.7 mg/dL (0.7-1.3) Estimated GFR (Cockcroft-Gault) 7.7 Glucose Level 114 mg/dL (70-99) Calcium Level 7.4 mg/dL (8.5-10.1) Phosphorus Level 5.0 mg/dL (2.6-4.7) Albumin 1.6 g/dL (3.4-5.0) Assessment and Plan Assessmemt and Plan Problems Medical Problems: (1) Hypertension Status: Acute Comment Review of Relevant I have reviewed the following items medardo (where applicable) has been applied. Labs Laboratory Tests Test 07/05/18 05:05 07/06/18 03:40 White Blood Count 9.3 x10^3/uL (4.0-11.0) 10.8 x10^3/uL (4.0-11.0) Red Blood Count 3.29 x10^6/uL (4.30-5.70) 3.36 x10^6/uL (4.30-5.70) Hemoglobin 10.3 g/dL (13.0-17.5) 10.3 g/dL (13.0-17.5) Hematocrit 30.4 % (39.0-53.0) 31.0 % (39.0-53.0) Mean Corpuscular Volume 92 fL (79-100) 92 fL (79-100) Mean Corpuscular Hemoglobin 31 pg (25-35) 31 pg (25-35) Mean Corpuscular Hemoglobin Concent 34 g/dL (31-37) 33 g/dL (31-37) Red Cell Distribution Width 17.3 % (11.5-14.5) 17.4 % (11.5-14.5) Platelet Count 291 x10^3/uL (140-400) 312 x10^3/uL (140-400) Neutrophils (%) (Auto) 78 % (31-73) 82 % (31-73) Lymphocytes (%) (Auto) 13 % (24-48) 10 % (24-48) Monocytes (%) (Auto) 9 % (0-9) 7 % (0-9) Eosinophils (%) (Auto) 0 % (0-3) 1 % (0-3) Basophils (%) (Auto) 0 % (0-3) 0 % (0-3) Neutrophils # (Auto) 7.3 x10^3uL (1.8-7.7) 8.8 x10^3uL (1.8-7.7) Lymphocytes # (Auto) 1.2 x10^3/uL (1.0-4.8) 1.1 x10^3/uL (1.0-4.8) Monocytes # (Auto) 0.8 x10^3/uL (0.0-1.1) 0.8 x10^3/uL (0.0-1.1) Eosinophils # (Auto) 0.0 x10^3/uL (0.0-0.7) 0.1 x10^3/uL (0.0-0.7) Basophils # (Auto) 0.0 x10^3/uL (0.0-0.2) 0.0 x10^3/uL (0.0-0.2) Sodium Level 137 mmol/L (136-145) 137 mmol/L (136-145) Potassium Level 4.1 mmol/L (3.5-5.1) 4.3 mmol/L (3.5-5.1) Chloride Level 100 mmol/L (98-107) 99 mmol/L (98-107) Carbon Dioxide Level 28 mmol/L (21-32) 27 mmol/L (21-32) Anion Gap 9 (6-14) 11 (6-14) Blood Urea Nitrogen 37 mg/dL (8-26) 54 mg/dL (8-26) Creatinine 6.5 mg/dL (0.7-1.3) 7.7 mg/dL (0.7-1.3) Estimated GFR (Cockcroft-Gault) 9.3 7.7 Glucose Level 113 mg/dL (70-99) 114 mg/dL (70-99) Calcium Level 7.5 mg/dL (8.5-10.1) 7.4 mg/dL (8.5-10.1) Phosphorus Level 5.1 mg/dL (2.6-4.7) 5.0 mg/dL (2.6-4.7) Albumin 1.6 g/dL (3.4-5.0) 1.6 g/dL (3.4-5.0) Laboratory Tests Test 07/06/18 03:40 White Blood Count 10.8 x10^3/uL (4.0-11.0) Red Blood Count 3.36 x10^6/uL (4.30-5.70) Hemoglobin 10.3 g/dL (13.0-17.5) Hematocrit 31.0 % (39.0-53.0) Mean Corpuscular Volume 92 fL (79-100) Mean Corpuscular Hemoglobin 31 pg (25-35) Mean Corpuscular Hemoglobin Concent 33 g/dL (31-37) Red Cell Distribution Width 17.4 % (11.5-14.5) Platelet Count 312 x10^3/uL (140-400) Neutrophils (%) (Auto) 82 % (31-73) Lymphocytes (%) (Auto) 10 % (24-48) Monocytes (%) (Auto) 7 % (0-9) Eosinophils (%) (Auto) 1 % (0-3) Basophils (%) (Auto) 0 % (0-3) Neutrophils # (Auto) 8.8 x10^3uL (1.8-7.7) Lymphocytes # (Auto) 1.1 x10^3/uL (1.0-4.8) Monocytes # (Auto) 0.8 x10^3/uL (0.0-1.1) Eosinophils # (Auto) 0.1 x10^3/uL (0.0-0.7) Basophils # (Auto) 0.0 x10^3/uL (0.0-0.2) Sodium Level 137 mmol/L (136-145) Potassium Level 4.3 mmol/L (3.5-5.1) Chloride Level 99 mmol/L (98-107) Carbon Dioxide Level 27 mmol/L (21-32) Anion Gap 11 (6-14) Blood Urea Nitrogen 54 mg/dL (8-26) Creatinine 7.7 mg/dL (0.7-1.3) Estimated GFR (Cockcroft-Gault) 7.7 Glucose Level 114 mg/dL (70-99) Calcium Level 7.4 mg/dL (8.5-10.1) Phosphorus Level 5.0 mg/dL (2.6-4.7) Albumin 1.6 g/dL (3.4-5.0) Microbiology 06/30/18 Urine Culture - Final, Complete 06/30/18 Urine Culture Result 1 (LINH) - Final, Complete Medications Current Medications Morphine Sulfate (Morphine Sulfate) 4 mg 1X ONCE IV Last administered on 06/29/18at 11:40; Start 06/29/18 at 11:30; Stop 06/29/18 at 11:31; Status DC Ondansetron HCl (Zofran) 4 mg 1X ONCE IV Last administered on 06/29/18at 11:44; Start 06/29/18 at 11:45; Stop 06/29/18 at 11:46; Status DC Ondansetron HCl (Zofran) 4 mg STK-MED ONCE .ROUTE ; Start 06/29/18 at 11:43; Stop 06/29/18 at 11:44; Status DC Ondansetron HCl (Zofran) 4 mg PRN Q8HRS PRN IV NAUSEA/VOMITING; Start 06/29/18 at 12:15; Stop 06/30/18 at 12:14; Status DC Morphine Sulfate (Morphine Sulfate) 4 mg 1X ONCE IV Last administered on 06/29/18 13:25; Start 06/29/18 at 13:30; Stop 06/29/18 at 13:31; Status DC Clonidine HCl (Catapres) 0.1 mg BID PO Last administered on 07/06/18at 19:53; Start 06/29/18 at 21:00 Cyanocobalamin (Vitamin B-12) 1,000 mcg DAILY PO Last administered on 07/06/18at 10:46; Start 06/29/18 at 16:30 Sevelamer Carbonate (Renvela) 800 mg TIDWMEALS PO Last administered on 07/06/18 17:28; Start 06/29/18 at 17:00 Hydrocortisone (Cortef) 20 mg DAILYWBKFT PO Last administered on 07/02/18at 08:55; Start 06/29/18 at 16:30; Stop 07/02/18 at 09:53; Status DC Multivitamins (Thera M Plus) 1 tab DAILY PO Last administered on 07/06/18at 10:47; Start 06/29/18 at 16:30 Olanzapine (ZyPREXA) 20 mg QHS PO Last administered on 07/04/18at 19:50; Start 06/29/18 at 21:00; Stop 07/05/18 at 13:49; Status DC Pantoprazole Sodium (Protonix) 40 mg DAILYAC PO Last administered on 06/29/18at 18:31; Start 06/29/18 at 16:30; Stop 07/01/18 at 07:33; Status DC Heparin Sodium (Porcine) (Heparin Sodium) 5,000 unit Q8HRS SQ Last administered on 07/06/18at 14:26; Start 06/29/18 at 22:00 Acetaminophen (Tylenol) 650 mg 1X ONCE PO Last administered on 06/29/18at 18:32; Start 06/29/18 at 16:30; Stop 06/29/18 at 16:31; Status DC Oxycodone/ Acetaminophen (Percocet 5/325) 1 tab PRN Q4HRS PRN PO PAIN Last administered on 07/06/18at 10:48; Start 06/29/18 at 20:00 Iohexol (Omnipaque 350 Mg/ml) 75 ml 1X ONCE IV Last administered on 06/29/18at 21:01; Start 06/29/18 at 21:00; Stop 06/29/18 at 21:03; Status DC Labetalol HCl (Normodyne Iv Push) 10 mg PRN Q10MIN PRN IVP HYPERTENSION, SEE COMMENTS; Start 06/29/18 at 21:15 Acetaminophen (Tylenol) 650 mg PRN Q6HRS PRN PO TEMP > 100.4F; Start 06/29/18 at 21:15 Acetaminophen (Tylenol Supp) 650 mg PRN Q4HRS PRN [place] TEMP > 100.4F; Start 06/29/18 at 21:15 Aspirin (Ecotrin) 325 mg DAILYWBKFT PO Last administered on 07/06/18at 10:47; Start 06/30/18 at 08:00 Aspirin (Aspirin Rectal Supp) 300 mg PRN DAILY PRN KS IF UNABLE TO TAKE PO; Start 06/29/18 at 21:15 Morphine Sulfate (Morphine Sulfate) 2 mg PRN Q2HR PRN IV SEVERE PAIN 7-10 Last administered on 07/06/18at 19:51; Start 06/29/18 at 22:30 Levetiracetam 500 mg/Dextrose 105 ml @ 420 mls/hr Q12HR IV Last administered on 07/06/18at 19:51; Start 06/30/18 at 00:00 Levetiracetam 1000 mg/Dextrose 110 ml @ 440 mls/hr 1X ONCE IV Last administered on 06/30/18at 02:25; Start 06/30/18 at 02:30; Stop 06/30/18 at 02:44; Status DC Lorazepam (Ativan) 1 mg PRN Q2HRS PRN IV TREMORS; Start 06/30/18 at 02:00 Fosphenytoin Sodium 1390 mg/ Sodium Chloride 77.8 ml @ 311.2 mls/ hr 1X ONCE IV Last administered on 06/30/18at 04:44; Start 06/30/18 at 05:00; Stop 06/30/18 at 05:14; Status DC Propofol 100 ml @ As Directed STK-MED ONCE IV ; Start 06/30/18 at 05:58; Stop 06/30/18 at 05:59; Status DC Succinylcholine Chloride (Anectine) 200 mg STK-MED ONCE .ROUTE ; Start 06/30/18 at 05:59; Stop 06/30/18 at 06:00; Status DC Propofol 100 ml @ 1.39 mls/hr 1X ONCE IV Last administered on 06/30/18at 06:30; Start 06/30/18 at 06:30; Stop 07/01/18 at 17:31; Status DC Succinylcholine Chloride (Anectine) 200 mg 1X ONCE IV Last administered on 06/30/18at 06:21; Start 06/30/18 at 06:30; Stop 06/30/18 at 06:31; Status DC Propofol 100 ml @ 0 mls/hr CONT PRN IV SEE I/O RECORD Last administered on 07/03/18at 02:50; Start 06/30/18 at 06:30; Stop 07/05/18 at 15:46; Status DC Fentanyl Citrate 30 ml @ 0 mls/hr CONT PRN IV SEE PROTOCOL; Start 06/30/18 at 06:30; Stop 07/03/18 at 17:50; Status DC Midazolam HCl 100 ml @ 0 mls/hr CONT PRN IV SEE PROTOCOL; Start 06/30/18 at 06:30; Stop 07/03/18 at 17:50; Status DC Fosphenytoin Sodium (Cerebyx) 100 mg Q8HRS IV Last administered on 07/06/18at 14:09; Start 06/30/18 at 14:00 Hydrocortisone Sodium Succinate (Solu-CORTEF) 100 mg Q8HRS IV Last administered on 07/06/18at 14:10; Start 06/30/18 at 14:00 Lansoprazole (Prevacid) 30 mg DAILYAC NG Last administered on 07/06/18at 10:47; Start 07/01/18 at 07:30 Sodium Chloride 1,000 ml @ 1,000 mls/hr Q1H PRN IV hypotension; Start 07/01/18 at 08:00; Stop 07/01/18 at 18:00; Status DC Albumin Human 200 ml @ 200 mls/hr 1X PRN PRN IV Hypotension; Start 07/01/18 at 08:00; Stop 07/01/18 at 18:00; Status DC Acetaminophen (Tylenol) 500 mg 1X PRN PRN PO MILD PAIN / TEMP; Start 07/01/18 at 07:45; Stop 07/01/18 at 18:00; Status DC Diphenhydramine HCl (Benadryl) 25 mg 1X PRN PRN IV ITCHING; Start 07/01/18 at 07:45; Stop 07/01/18 at 18:00; Status DC Diphenhydramine HCl (Benadryl) 25 mg 1X PRN PRN IV ITCHING; Start 07/01/18 at 07:45; Stop 07/01/18 at 18:00; Status DC Sodium Chloride (Normal Saline Flush) 10 ml 1X PRN PRN IV AP catheter pack; Start 07/01/18 at 07:45; Stop 07/01/18 at 18:00; Status DC Sodium Chloride (Normal Saline Flush) 10 ml 1X PRN PRN IV MATH TEACHER catheter pack; Start 07/01/18 at 07:45; Stop 07/01/18 at 18:00; Status DC Sodium Chloride 1,000 ml @ 400 mls/hr Q2H30M PRN IV PATENCY; Start 07/01/18 at 08:00; Stop 07/01/18 at 18:00; Status DC Info (PHARMACY MONITORING -- do not chart) 1 each PRN DAILY PRN MC SEE COMMENTS; Start 07/01/18 at 08:00; Stop 07/04/18 at 07:54; Status DC Gentamicin Sulfate (Gentak) 0.25 inch [id number] OU ; Start 07/02/18 at 23:00; Status Cancel Tobramycin Sulfate (Tobrex Ophth Soln) 2 drop Q4HRS OU Last administered on 07/05/18at 08:53; Start 07/03/18 at 00:00; Stop 07/05/18 at 13:05; Status DC Multi-Ingred Cream/Lotion/Oil/ Oint (Artificial Tears Eye Ointment) 1 juliette PRN Q1HR PRN OU DRY EYE; Start 07/03/18 at 18:45 Sodium Chloride 1,000 ml @ 1,000 mls/hr Q1H PRN IV hypotension; Start 07/04/18 at 07:47; Stop 07/04/18 at 13:46; Status DC Albumin Human 200 ml @ 200 mls/hr 1X PRN PRN IV Hypotension; Start 07/04/18 at 08:00; Stop 07/04/18 at 13:59; Status DC Acetaminophen (Tylenol) 500 mg 1X PRN PRN PO MILD PAIN / TEMP; Start 07/04/18 at 08:00; Stop 07/05/18 at 07:59; Status DC Diphenhydramine HCl (Benadryl) 25 mg 1X PRN PRN IV ITCHING; Start 07/04/18 at 08:00; Stop 07/05/18 at 07:59; Status DC Diphenhydramine HCl (Benadryl) 25 mg 1X PRN PRN IV ITCHING; Start 07/04/18 at 08:00; Stop 07/05/18 at 07:59; Status DC Sodium Chloride (Normal Saline Flush) 10 ml 1X PRN PRN IV AP catheter pack; Start 07/04/18 at 08:00; Stop 07/05/18 at 07:59; Status DC Sodium Chloride (Normal Saline Flush) 10 ml 1X PRN PRN IV MATH TEACHER catheter pack; Start 07/04/18 at 08:00; Stop 07/05/18 at 07:59; Status DC Sodium Chloride 1,000 ml @ 400 mls/hr Q2H30M PRN IV PATENCY; Start 07/04/18 at 07:47; Stop 07/04/18 at 19:46; Status DC Info (PHARMACY MONITORING -- do not chart) 1 each PRN DAILY PRN MC SEE COMMENTS; Start 07/04/18 at 08:00 Ciprofloxacin (Ciloxan Ophth) 2 drop Q1H OU Last administered on 07/06/18at 20:59; Start 07/05/18 at 13:15 Benztropine Mesylate (Cogentin) 1 mg PRN BID PRN PO EXTRAPYRAMIDAL EFFECTS; Start 07/05/18 at 13:45 Hydroxyzine Pamoate (Vistaril) 50 mg TID PO Last administered on 07/06/18at 19:51; Start 07/05/18 at 14:00 Olanzapine (ZyPREXA) 30 mg QHS PO Last administered on 07/06/18at 19:52; Start 07/05/18 at 21:00 Divalproex Sodium (Depakote Er) 1,500 mg QHS PO Last administered on 07/06/18at 19:52; Start 07/05/18 at 21:00 Sodium Chloride 1,000 ml @ 1,000 mls/hr Q1H PRN IV hypotension; Start 07/06/18 at 06:30; Stop 07/06/18 at 06:35; Status DC Diphenhydramine HCl (Benadryl) 25 mg 1X PRN PRN IV ITCHING; Start 07/06/18 at 06:30; Stop 07/07/18 at 06:29 Diphenhydramine HCl (Benadryl) 25 mg 1X PRN PRN IV ITCHING; Start 07/06/18 at 06:30; Stop 07/07/18 at 06:29 Sodium Chloride 1,000 ml @ 400 mls/hr Q2H30M PRN IV PATENCY; Start 07/06/18 at 06:30; Stop 07/06/18 at 06:35; Status DC Info (PHARMACY MONITORING -- do not chart) 1 each PRN DAILY PRN MC SEE COMMENTS; Start 07/06/18 at 06:30 Active Scripts Active Clonidine Hcl 0.1 Mg Tablet 0.1 Mg PO BID [Pantoprazole] 40 MG Tablet.dr 40 Mg PO DAILYAC MDD 1 Renvela (Sevelamer Carbonate) 800 Mg Tablet 800 Mg PO TIDWMEALS MDD 1 Reported Depakote (Divalproex Sodium) 500 Mg Tablet.dr 1,500 Mg PO HS Hydroxyzine Hcl 50 Mg Tablet 50 Mg PO TID Olanzapine 10 Mg Tablet 30 Mg PO HS Ibuprofen 400 Mg Tablet 400 Mg PO PRN Q6HRS PRN Benztropine Mesylate 1 Mg Tablet 1 Tab PO BID PRN Haloperidol 10 Mg Tablet 20 Mg PO HS Multivitamins (Multivitamin) 1 Each Tablet 1 Tab PO DAILY Vitamin B-12 (Cyanocobalamin (Vitamin B-12)) 1,000 Mcg Tablet 1 Tab PO DAILY Cortef (Hydrocortisone) 20 Mg Tablet 20 Mg PO DAILY Vitals/I & O Vital Sign - Last 24 Hours 07/05/18 07/06/18 07/06/18 07/06/18 23:00 03:05 08:00 10:47 Temp 98.4 98.2 98.4 98.2 Pulse 81 93 85 Resp 16 20 B/P (MAP) 149/103 (118) 148/92 (110) 156/100 Pulse Ox 93 91 O2 Delivery Room Air Room Air Room Air 07/06/18 07/06/18 07/06/18 07/06/18 10:48 11:48 12:37 15:00 Pulse 89 Resp 16 16 16 O2 Delivery Room Air Room Air Room Air Room Air 07/06/18 07/06/18 07/06/18 07/06/18 16:16 16:46 17:20 19:45 Temp 98.9 98.9 Pulse 92 Resp 16 16 18 B/P (MAP) 153/100 (117) Pulse Ox 94 O2 Delivery Room Air Room Air Room Air 07/06/18 07/06/18 07/06/18 19:49 19:53 20:59 Temp 98.3 98.3 Pulse 99 99 Resp 18 B/P (MAP) 149/110 (123) 149/110 Pulse Ox 93 O2 Delivery Room Air Room Air Intake and Output 07/05/18 07/05/18 07/06/18 14:59 22:59 06:59 Intake Total 480 ml 300 ml Output Total 0 ml 0 ml Balance 480 ml 300 ml MAYELIN AN MD July 06, 2018 21:19
[2018-07-06 23:00] VITALS: BP 163/111
[2018-07-07] MEDS: CIPROFLOXACIN 0.3% OPHTH SOLUTION 5ML BOTTLE. OU SCH ×24 (00:15→23:07)
[2018-07-07 03:00] VITALS: BP 154/111
[2018-07-07 04:55] LABS: BASO % 0 % (0-3); EOS % 0 % (0-3); HEMOGLOBIN 10.3 g/dL (13.0-17.5); LYMPH # 1.2 x10^3/uL (1.0-4.8); LYMPH % 11 % (24-48); MEAN CORPUSCULAR HEMOGLOBIN 31 pg (25-35); MEAN CORPUSCULAR HGB CONC 33 g/dL (31-37); MEAN CORPUSCULAR VOLUME 93 fL (79-100); MONO # 0.7 x10^3/uL (0.0-1.1); MONO % 6 % (0-9); NEUT # 9.1 x10^3uL (1.8-7.7); NEUT % 83 % (31-73); PLATELET COUNT 299 x10^3/uL (140-400); RED BLOOD COUNT 3.35 x10^6/uL (4.30-5.70); RED CELL DISTRIBUTION WIDTH 16.9 % (11.5-14.5)
[2018-07-07 05:25] LABS: ALBUMIN 1.7 g/dL (3.4-5.0); CALCIUM 7.6 mg/dL (8.5-10.1); CREATININE 6.2 mg/dL (0.7-1.3); GFR 9.8; PHOSPHORUS 3.5 mg/dL (2.6-4.7); POTASSIUM 4.2 mmol/L (3.5-5.1)
[2018-07-07] MEDS: HYDROCORTISONE SOD SUCC/PF 100 MG/2 ML VIAL. IV SCH ×3 (06:50→21:35)
[2018-07-07] MEDS: FOSPHENYTOIN 100 MG/2 ML VIAL. IV SCH ×3 (06:51→21:36)
[2018-07-07] MEDS: HEPARIN for SUB-Q USE 5,000 UNIT/ML VIAL. SQ SCH ×3 (06:56→21:44)
[2018-07-07 07:10] VITALS: BP 191/98
[2018-07-07] MEDS: LANSOPRAZOLE 30 MG TAB.RAP.DR NG SCH (07:39)
[2018-07-07] MEDS: SEVELAMER CARBONATE 800 MG TABLET. PO SCH ×3 (09:15→17:30)
[2018-07-07] MEDS: ASPIRIN ENTERIC COATED 325 MG TABLET.DR. PO SCH (09:15)
[2018-07-07] MEDS: MULTIVITAMIN with MINERAL TABLET. PO SCH (09:15)
[2018-07-07] MEDS: cloNIDine HCL 0.1 MG TABLET PO SCH ×2 (09:15→20:31)
[2018-07-07] MEDS: hydrOXYzine PAMOATE 25 MG CAPSULE PO SCH ×3 (09:15→20:31)
[2018-07-07] MEDS: CYANOCOBALAMIN (VITAMIN B-12) 1,000 MCG TABLET. PO SCH (09:16)
[2018-07-07] MEDS: MORPHINE SULFATE 2 MG/ML VIAL. IV PRN ×4 (09:22→21:36)
--- NOTE | 2018-07-07 10:32 | PDOC ---
SUBJECTIVE ROS Stable OBJECTIVE Vital Signs Vital Signs Date Time Temp Pulse Resp B/P (MAP) Pulse Ox O2 Delivery O2 Flow Rate FiO2 07/07/18 10:01 80 191/98 07/07/18 09:22 16 Room Air 07/07/18 07:10 98.2 91 98.2 I & 0 Intake and Output 07/07/18 07:00 Intake Total 640 ml Output Total 0 ml Balance 640 ml Intake Oral 640 ml Output Urine Total 0 ml PHYSICAL EXAM Physical Exam General NAD , HEENT: OM moist Neck: Supple Lungs- CTA bilat CV RRR Ext- No LE edema Gu- No Pete Neuro- Alert xO x3 DIAGNOSIS/ASSESSMENT Assessment & Plan New ESRD - S/P Renal Bx 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 bladder scan 282 ml, voided yesterday SW for OP chair time Good pasture's syndrome- post renal Bx No Obvious Lung involvement Anti GBM positive, 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 Malignant HTN - Controlled now Seizures - No recent Sz activity per neurology Posterior reversible encephalopathy syndrome,(PRES) Neurology following 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 Anemia - Hgb stable HEP B- Positive Ab, repeat negative [place] - On Hydrocortisone Per primary COMMENT/RELEVANT DATA Meds Current Medications Medications (Trade) Dose Ordered Sig/Essence Start Time Stop Time Status Last Admin Dose Admin Acetaminophen (Tylenol Supp) 650 mg PRN Q4HRS PRN 06/29/18 21:15 Acetaminophen (Tylenol) 500 mg 1X PRN PRN 07/04/18 08:00 07/05/18 07:59 DC Albumin Human 200 ml @ 200 mls/hr 1X PRN PRN 07/04/18 08:00 07/04/18 13:59 DC Aspirin (Aspirin Rectal Supp) 300 mg PRN DAILY PRN 06/29/18 21:15 Aspirin (Ecotrin) 325 mg DAILYWBKFT 06/30/18 08:00 07/07/18 09:15 325 MG Benztropine Mesylate (Cogentin) 1 mg PRN BID PRN 07/05/18 13:45 Ciprofloxacin (Ciloxan Ophth) 2 drop Q1H 07/05/18 13:15 07/07/18 10:01 2 DROP Clonidine HCl (Catapres) 0.1 mg BID 06/29/18 21:00 07/07/18 09:15 0.1 MG Cyanocobalamin (Vitamin B-12) 1,000 mcg DAILY 06/29/18 16:30 07/07/18 09:16 1,000 MCG Diphenhydramine HCl (Benadryl) 25 mg 1X PRN PRN 07/06/18 06:30 07/07/18 06:29 DC Divalproex Sodium (Depakote Er) 1,500 mg QHS 07/05/18 21:00 07/06/18 19:52 1,500 MG Fentanyl Citrate 30 ml @ 0 mls/hr CONT PRN 06/30/18 06:30 07/03/18 17:50 DC Fosphenytoin Sodium (Cerebyx) 100 mg Q8HRS 06/30/18 14:00 07/07/18 06:51 100 MG Fosphenytoin Sodium 1390 mg/ Sodium Chloride 77.8 ml @ 311.2 mls/ hr 1X ONCE 06/30/18 05:00 06/30/18 05:14 DC 06/30/18 04:44 311.2 MLS/HR Gentamicin Sulfate (Gentak) 0.25 inch [id number] 07/02/18 23:00 Cancel Heparin Sodium (Porcine) (Heparin Sodium) 5,000 unit Q8HRS 06/29/18 22:00 07/07/18 06:56 5,000 UNIT Hydrocortisone (Cortef) 20 mg DAILYWBKFT 06/29/18 16:30 07/02/18 09:53 DC 07/02/18 08:55 20 MG Hydrocortisone Sodium Succinate (Solu-CORTEF) 100 mg Q8HRS 06/30/18 14:00 07/07/18 06:50 100 MG Hydroxyzine Pamoate (Vistaril) 50 mg TID 07/05/18 14:00 07/07/18 09:15 50 MG Info (PHARMACY MONITORING -- do not chart) 1 each PRN DAILY PRN 07/06/18 06:30 Iohexol (Omnipaque 350 Mg/ml) 75 ml 1X ONCE 06/29/18 21:00 06/29/18 21:03 DC 06/29/18 21:01 75 ML Labetalol HCl (Normodyne Iv Push) 10 mg PRN Q10MIN PRN 06/29/18 21:15 07/07/18 10:01 10 MG Lansoprazole (Prevacid) 30 mg DAILYAC 07/01/18 07:30 07/07/18 07:39 30 MG Levetiracetam 1000 mg/Dextrose 110 ml @ 440 mls/hr 1X ONCE 06/30/18 02:30 06/30/18 02:44 DC 06/30/18 02:25 440 MLS/HR Levetiracetam 500 mg/Dextrose 105 ml @ 420 mls/hr Q12HR 06/30/18 00:00 07/06/18 19:51 420 MLS/HR Lorazepam (Ativan) 1 mg PRN Q2HRS PRN 06/30/18 02:00 Midazolam HCl 100 ml @ 0 mls/hr CONT PRN 06/30/18 06:30 07/03/18 17:50 DC Morphine Sulfate (Morphine Sulfate) 2 mg PRN Q2HR PRN 06/29/18 22:30 07/07/18 09:22 2 MG Multi-Ingred Cream/Lotion/Oil/ Oint (Artificial Tears Eye Ointment) 1 ujliette PRN Q1HR PRN 07/03/18 18:45 Multivitamins (Thera M Plus) 1 tab DAILY 06/29/18 16:30 07/07/18 09:15 1 TAB Olanzapine (ZyPREXA) 30 mg QHS 07/05/18 21:00 07/06/18 19:52 30 MG Ondansetron HCl (Zofran) 4 mg PRN Q8HRS PRN 06/29/18 12:15 06/30/18 12:14 DC Oxycodone/ Acetaminophen (Percocet 5/325) 1 tab PRN Q4HRS PRN 06/29/18 20:00 07/06/18 10:48 1 TAB Pantoprazole Sodium (Protonix) 40 mg DAILYAC 06/29/18 16:30 07/01/18 07:33 DC 06/29/18 18:31 40 MG Propofol 100 ml @ 0 mls/hr CONT PRN 06/30/18 06:30 07/05/18 15:46 DC 07/03/18 02:50 16.682 MLS/HR Sevelamer Carbonate (Renvela) 800 mg TIDWMEALS 06/29/18 17:00 07/07/18 09:15 800 MG Sodium Chloride 1,000 ml @ 400 mls/hr Q2H30M PRN 07/06/18 06:30 07/06/18 06:35 DC Sodium Chloride (Normal Saline Flush) 10 ml 1X PRN PRN 07/04/18 08:00 07/05/18 07:59 DC Succinylcholine Chloride (Anectine) 200 mg 1X ONCE 06/30/18 06:30 06/30/18 06:31 DC 06/30/18 06:21 200 MG Tobramycin Sulfate (Tobrex Ophth Soln) 2 drop Q4HRS 07/03/18 00:00 07/05/18 13:05 DC 07/05/18 08:53 2 DROP Lab Laboratory Tests Test 07/07/18 04:00 White Blood Count 11.0 x10^3/uL (4.0-11.0) Red Blood Count 3.35 x10^6/uL (4.30-5.70) Hemoglobin 10.3 g/dL (13.0-17.5) Hematocrit 31.0 % (39.0-53.0) Mean Corpuscular Volume 93 fL (79-100) Mean Corpuscular Hemoglobin 31 pg (25-35) Mean Corpuscular Hemoglobin Concent 33 g/dL (31-37) Red Cell Distribution Width 16.9 % (11.5-14.5) Platelet Count 299 x10^3/uL (140-400) Neutrophils (%) (Auto) 83 % (31-73) Lymphocytes (%) (Auto) 11 % (24-48) Monocytes (%) (Auto) 6 % (0-9) Eosinophils (%) (Auto) 0 % (0-3) Basophils (%) (Auto) 0 % (0-3) Neutrophils # (Auto) 9.1 x10^3uL (1.8-7.7) Lymphocytes # (Auto) 1.2 x10^3/uL (1.0-4.8) Monocytes # (Auto) 0.7 x10^3/uL (0.0-1.1) Eosinophils # (Auto) 0.0 x10^3/uL (0.0-0.7) Basophils # (Auto) 0.0 x10^3/uL (0.0-0.2) Sodium Level 138 mmol/L (136-145) Potassium Level 4.2 mmol/L (3.5-5.1) Chloride Level 99 mmol/L (98-107) Carbon Dioxide Level 28 mmol/L (21-32) Anion Gap 11 (6-14) Blood Urea Nitrogen 50 mg/dL (8-26) Creatinine 6.2 mg/dL (0.7-1.3) Estimated GFR (Cockcroft-Gault) 9.8 Glucose Level 108 mg/dL (70-99) Calcium Level 7.6 mg/dL (8.5-10.1) Phosphorus Level 3.5 mg/dL (2.6-4.7) Albumin 1.7 g/dL (3.4-5.0) Results All relevant outside records, renal labs, imaging studies, telemetry/EKG's were reviewed. EDEL ADKINS MD July 07, 2018 10:31
--- NOTE | 2018-07-07 10:44 | PDOC ---
PULMONARY PROGRESS NOTES Subjective EXTUBATED 07/03 ON RA Vitals Vital Signs Date Time Temp Pulse Resp B/P (MAP) Pulse Ox O2 Delivery O2 Flow Rate FiO2 07/07/18 10:01 80 191/98 07/07/18 09:22 16 Room Air 07/07/18 07:10 98.2 91 98.2 General: Alert, No acute distress Lungs: Clear Cardiovascular: S1, S2 Abdomen: Soft Neuro Exam: Alert Extremities: Other (EDEMA) Labs Laboratory Tests Test 07/06/18 03:40 07/07/18 04:00 White Blood Count 10.8 x10^3/uL (4.0-11.0) 11.0 x10^3/uL (4.0-11.0) Red Blood Count 3.36 x10^6/uL (4.30-5.70) 3.35 x10^6/uL (4.30-5.70) Hemoglobin 10.3 g/dL (13.0-17.5) 10.3 g/dL (13.0-17.5) Hematocrit 31.0 % (39.0-53.0) 31.0 % (39.0-53.0) Mean Corpuscular Volume 92 fL (79-100) 93 fL (79-100) Mean Corpuscular Hemoglobin 31 pg (25-35) 31 pg (25-35) Mean Corpuscular Hemoglobin Concent 33 g/dL (31-37) 33 g/dL (31-37) Red Cell Distribution Width 17.4 % (11.5-14.5) 16.9 % (11.5-14.5) Platelet Count 312 x10^3/uL (140-400) 299 x10^3/uL (140-400) Neutrophils (%) (Auto) 82 % (31-73) 83 % (31-73) Lymphocytes (%) (Auto) 10 % (24-48) 11 % (24-48) Monocytes (%) (Auto) 7 % (0-9) 6 % (0-9) Eosinophils (%) (Auto) 1 % (0-3) 0 % (0-3) Basophils (%) (Auto) 0 % (0-3) 0 % (0-3) Neutrophils # (Auto) 8.8 x10^3uL (1.8-7.7) 9.1 x10^3uL (1.8-7.7) Lymphocytes # (Auto) 1.1 x10^3/uL (1.0-4.8) 1.2 x10^3/uL (1.0-4.8) Monocytes # (Auto) 0.8 x10^3/uL (0.0-1.1) 0.7 x10^3/uL (0.0-1.1) Eosinophils # (Auto) 0.1 x10^3/uL (0.0-0.7) 0.0 x10^3/uL (0.0-0.7) Basophils # (Auto) 0.0 x10^3/uL (0.0-0.2) 0.0 x10^3/uL (0.0-0.2) Sodium Level 137 mmol/L (136-145) 138 mmol/L (136-145) Potassium Level 4.3 mmol/L (3.5-5.1) 4.2 mmol/L (3.5-5.1) Chloride Level 99 mmol/L (98-107) 99 mmol/L (98-107) Carbon Dioxide Level 27 mmol/L (21-32) 28 mmol/L (21-32) Anion Gap 11 (6-14) 11 (6-14) Blood Urea Nitrogen 54 mg/dL (8-26) 50 mg/dL (8-26) Creatinine 7.7 mg/dL (0.7-1.3) 6.2 mg/dL (0.7-1.3) Estimated GFR (Cockcroft-Gault) 7.7 9.8 Glucose Level 114 mg/dL (70-99) 108 mg/dL (70-99) Calcium Level 7.4 mg/dL (8.5-10.1) 7.6 mg/dL (8.5-10.1) Phosphorus Level 5.0 mg/dL (2.6-4.7) 3.5 mg/dL (2.6-4.7) Albumin 1.6 g/dL (3.4-5.0) 1.7 g/dL (3.4-5.0) Laboratory Tests Test 07/07/18 04:00 White Blood Count 11.0 x10^3/uL (4.0-11.0) Red Blood Count 3.35 x10^6/uL (4.30-5.70) Hemoglobin 10.3 g/dL (13.0-17.5) Hematocrit 31.0 % (39.0-53.0) Mean Corpuscular Volume 93 fL (79-100) Mean Corpuscular Hemoglobin 31 pg (25-35) Mean Corpuscular Hemoglobin Concent 33 g/dL (31-37) Red Cell Distribution Width 16.9 % (11.5-14.5) Platelet Count 299 x10^3/uL (140-400) Neutrophils (%) (Auto) 83 % (31-73) Lymphocytes (%) (Auto) 11 % (24-48) Monocytes (%) (Auto) 6 % (0-9) Eosinophils (%) (Auto) 0 % (0-3) Basophils (%) (Auto) 0 % (0-3) Neutrophils # (Auto) 9.1 x10^3uL (1.8-7.7) Lymphocytes # (Auto) 1.2 x10^3/uL (1.0-4.8) Monocytes # (Auto) 0.7 x10^3/uL (0.0-1.1) Eosinophils # (Auto) 0.0 x10^3/uL (0.0-0.7) Basophils # (Auto) 0.0 x10^3/uL (0.0-0.2) Sodium Level 138 mmol/L (136-145) Potassium Level 4.2 mmol/L (3.5-5.1) Chloride Level 99 mmol/L (98-107) Carbon Dioxide Level 28 mmol/L (21-32) Anion Gap 11 (6-14) Blood Urea Nitrogen 50 mg/dL (8-26) Creatinine 6.2 mg/dL (0.7-1.3) Estimated GFR (Cockcroft-Gault) 9.8 Glucose Level 108 mg/dL (70-99) Calcium Level 7.6 mg/dL (8.5-10.1) Phosphorus Level 3.5 mg/dL (2.6-4.7) Albumin 1.7 g/dL (3.4-5.0) Medications Active Scripts Medications Dose Route/Sig Max Daily Dose Days Date Category Clonidine Hcl 0.1 Mg Tablet 0.1 Mg PO BID 5/7/19 Rx [Pantoprazole] 40 MG Tablet.dr 40 Mg PO DAILYAC MDD 1 06/27/18 Rx Renvela (Sevelamer Carbonate) 800 Mg Tablet 800 Mg PO TIDWMEALS MDD 1 06/27/18 Rx Multivitamins (Multivitamin) 1 Each Tablet 1 Tab PO DAILY 06/23/18 Reported Vitamin B-12 (Cyanocobalamin (Vitamin B-12)) 1,000 Mcg Tablet 1 Tab PO DAILY 06/23/18 Reported Olanzapine 20 Mg Tablet 20 Mg PO QHS 06/23/18 Reported Cortef (Hydrocortisone) 20 Mg Tablet 20 Mg PO DAILY 06/22/18 Reported Impression . IMPRESSION: 1. Acute respiratory failure secondary to seizures. 2. Posterior reversible encephalopathy syndrome related to hypertension and renal insufficiency. 3. Encephalopathy. 4. End-stage renal disease. 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 Schizophrenia. 6. Hepatitis B positive antibodies. 7. Tobacco abuse. 8. Noncompliance. 9. PRES ON MRI BRAIN Plan . EXTUBATED 07/03 SPEECH EVAL DONE. ON PO HD PER RENAL FOLLOW NEURO FOLLOW SEROLOGY STABLE PULMONARY STATUS DC PLANS PER PCP HILARY STERN MD July 07, 2018 10:44
[2018-07-07] MEDS: levETIRAcetam 500 MG in IV DEXTROSE 5% 100ML 100 ML IV SCH ×2 (10:58→20:32)
--- NOTE | 2018-07-07 11:05 | NUR ---
SW phoned [facility] and requested inpatient transfer. Face sheet faxed. Acceptance and admission pending. Will continue to follow.
[2018-07-07 11:16] VITALS: BP 141/101
--- NOTE | 2018-07-07 13:55 | NUR ---
[facility] declined to take pt and reported pt needs to follow up at Outpatient. SW left a voice mail to Tamera at [facility] requesting an update for chair time. Discussed with RN and Physician.
[2018-07-07] MEDS: oxyCODONE/APAP 5/325 1 TAB TABLET PO PRN ×2 (15:15→20:31)
[2018-07-07 15:16] VITALS: BP 143/107
--- NOTE | 2018-07-07 15:16 | PDOC ---
PROGRESS NOTES Chief Complaint Chief Complaint Posterior reversible encephalopathy syndrome on admission hypertensive emergency resolved Seizure disorder and loss of airway requiring ICU stay and intubation during his admission Vision loss with corneal cloudiness (central + peripheral etiologies ?) recent onset, this was documented 2 days ago, started on Tobramycin, opthalmology consultation has been requested but not available at our institution, verbal recommendation from local ophtalmologist greatly appreciated. Most likely infection associated to the use of contact lenses. there were reports that they had been retrieved from the patients eyes on his 2 and 3rd hospital day but today he was rubbing his left eye and an old contact lens came out. Curiously is the eye where he has the better vision, he can count fingers with that eye and only sees light reflection on the left. Metabolic encephalopathy. Resolved Vision loss. Petechial cerebral hemorrhage. Renal failure. secondary to [place] biopsy proven as per review of records. UTI? Pleural effusion. Anemia. Hypocalcemia. Schizophrenia. Bipolar disorder. Newly started on dialysis Noncompliance Arron's Hep B Malignant HTN Plan; continue cipro ophtalmic efforts are being made to transfer to institution where ophthalmology services can evaluate his recent vision loss. institutions in the area at capacity and unable to accept in transfer, will try again tomorrow. continue current supportive measures will resume home meds further recommendations based on clincal course. History of Present Illness History of Present Illness Patient improved compared to yesterday clinically and but still unable to see. He is able to count my fingers with his left eye but not his right eye. No acute events reported overnight CONCERNS have been addressed to the best of my abilities Vitals Vitals Vital Signs Date Time Temp Pulse Resp B/P (MAP) Pulse Ox O2 Delivery O2 Flow Rate FiO2 07/07/18 13:23 16 Room Air 07/07/18 11:16 97.7 84 141/101 (114) 92 97.7 Physical Exam General: Other Heart: Regular rate, Normal S1, Normal S2 Lungs: Clear Abdomen: Normal bowel sounds, Soft Extremities: No cyanosis Skin: No rashes, Other Labs LABS Laboratory Tests Test 07/07/18 04:00 White Blood Count 11.0 x10^3/uL (4.0-11.0) Red Blood Count 3.35 x10^6/uL (4.30-5.70) Hemoglobin 10.3 g/dL (13.0-17.5) Hematocrit 31.0 % (39.0-53.0) Mean Corpuscular Volume 93 fL (79-100) Mean Corpuscular Hemoglobin 31 pg (25-35) Mean Corpuscular Hemoglobin Concent 33 g/dL (31-37) Red Cell Distribution Width 16.9 % (11.5-14.5) Platelet Count 299 x10^3/uL (140-400) Neutrophils (%) (Auto) 83 % (31-73) Lymphocytes (%) (Auto) 11 % (24-48) Monocytes (%) (Auto) 6 % (0-9) Eosinophils (%) (Auto) 0 % (0-3) Basophils (%) (Auto) 0 % (0-3) Neutrophils # (Auto) 9.1 x10^3uL (1.8-7.7) Lymphocytes # (Auto) 1.2 x10^3/uL (1.0-4.8) Monocytes # (Auto) 0.7 x10^3/uL (0.0-1.1) Eosinophils # (Auto) 0.0 x10^3/uL (0.0-0.7) Basophils # (Auto) 0.0 x10^3/uL (0.0-0.2) Sodium Level 138 mmol/L (136-145) Potassium Level 4.2 mmol/L (3.5-5.1) Chloride Level 99 mmol/L (98-107) Carbon Dioxide Level 28 mmol/L (21-32) Anion Gap 11 (6-14) Blood Urea Nitrogen 50 mg/dL (8-26) Creatinine 6.2 mg/dL (0.7-1.3) Estimated GFR (Cockcroft-Gault) 9.8 Glucose Level 108 mg/dL (70-99) Calcium Level 7.6 mg/dL (8.5-10.1) Phosphorus Level 3.5 mg/dL (2.6-4.7) Albumin 1.7 g/dL (3.4-5.0) Assessment and Plan Assessmemt and Plan Problems Medical Problems: (1) Hypertension Status: Acute Comment Review of Relevant I have reviewed the following items medardo (where applicable) has been applied. Labs Laboratory Tests Test 07/06/18 03:40 07/07/18 04:00 White Blood Count 10.8 x10^3/uL (4.0-11.0) 11.0 x10^3/uL (4.0-11.0) Red Blood Count 3.36 x10^6/uL (4.30-5.70) 3.35 x10^6/uL (4.30-5.70) Hemoglobin 10.3 g/dL (13.0-17.5) 10.3 g/dL (13.0-17.5) Hematocrit 31.0 % (39.0-53.0) 31.0 % (39.0-53.0) Mean Corpuscular Volume 92 fL (79-100) 93 fL (79-100) Mean Corpuscular Hemoglobin 31 pg (25-35) 31 pg (25-35) Mean Corpuscular Hemoglobin Concent 33 g/dL (31-37) 33 g/dL (31-37) Red Cell Distribution Width 17.4 % (11.5-14.5) 16.9 % (11.5-14.5) Platelet Count 312 x10^3/uL (140-400) 299 x10^3/uL (140-400) Neutrophils (%) (Auto) 82 % (31-73) 83 % (31-73) Lymphocytes (%) (Auto) 10 % (24-48) 11 % (24-48) Monocytes (%) (Auto) 7 % (0-9) 6 % (0-9) Eosinophils (%) (Auto) 1 % (0-3) 0 % (0-3) Basophils (%) (Auto) 0 % (0-3) 0 % (0-3) Neutrophils # (Auto) 8.8 x10^3uL (1.8-7.7) 9.1 x10^3uL (1.8-7.7) Lymphocytes # (Auto) 1.1 x10^3/uL (1.0-4.8) 1.2 x10^3/uL (1.0-4.8) Monocytes # (Auto) 0.8 x10^3/uL (0.0-1.1) 0.7 x10^3/uL (0.0-1.1) Eosinophils # (Auto) 0.1 x10^3/uL (0.0-0.7) 0.0 x10^3/uL (0.0-0.7) Basophils # (Auto) 0.0 x10^3/uL (0.0-0.2) 0.0 x10^3/uL (0.0-0.2) Sodium Level 137 mmol/L (136-145) 138 mmol/L (136-145) Potassium Level 4.3 mmol/L (3.5-5.1) 4.2 mmol/L (3.5-5.1) Chloride Level 99 mmol/L (98-107) 99 mmol/L (98-107) Carbon Dioxide Level 27 mmol/L (21-32) 28 mmol/L (21-32) Anion Gap 11 (6-14) 11 (6-14) Blood Urea Nitrogen 54 mg/dL (8-26) 50 mg/dL (8-26) Creatinine 7.7 mg/dL (0.7-1.3) 6.2 mg/dL (0.7-1.3) Estimated GFR (Cockcroft-Gault) 7.7 9.8 Glucose Level 114 mg/dL (70-99) 108 mg/dL (70-99) Calcium Level 7.4 mg/dL (8.5-10.1) 7.6 mg/dL (8.5-10.1) Phosphorus Level 5.0 mg/dL (2.6-4.7) 3.5 mg/dL (2.6-4.7) Albumin 1.6 g/dL (3.4-5.0) 1.7 g/dL (3.4-5.0) Laboratory Tests Test 07/07/18 04:00 White Blood Count 11.0 x10^3/uL (4.0-11.0) Red Blood Count 3.35 x10^6/uL (4.30-5.70) Hemoglobin 10.3 g/dL (13.0-17.5) Hematocrit 31.0 % (39.0-53.0) Mean Corpuscular Volume 93 fL (79-100) Mean Corpuscular Hemoglobin 31 pg (25-35) Mean Corpuscular Hemoglobin Concent 33 g/dL (31-37) Red Cell Distribution Width 16.9 % (11.5-14.5) Platelet Count 299 x10^3/uL (140-400) Neutrophils (%) (Auto) 83 % (31-73) Lymphocytes (%) (Auto) 11 % (24-48) Monocytes (%) (Auto) 6 % (0-9) Eosinophils (%) (Auto) 0 % (0-3) Basophils (%) (Auto) 0 % (0-3) Neutrophils # (Auto) 9.1 x10^3uL (1.8-7.7) Lymphocytes # (Auto) 1.2 x10^3/uL (1.0-4.8) Monocytes # (Auto) 0.7 x10^3/uL (0.0-1.1) Eosinophils # (Auto) 0.0 x10^3/uL (0.0-0.7) Basophils # (Auto) 0.0 x10^3/uL (0.0-0.2) Sodium Level 138 mmol/L (136-145) Potassium Level 4.2 mmol/L (3.5-5.1) Chloride Level 99 mmol/L (98-107) Carbon Dioxide Level 28 mmol/L (21-32) Anion Gap 11 (6-14) Blood Urea Nitrogen 50 mg/dL (8-26) Creatinine 6.2 mg/dL (0.7-1.3) Estimated GFR (Cockcroft-Gault) 9.8 Glucose Level 108 mg/dL (70-99) Calcium Level 7.6 mg/dL (8.5-10.1) Phosphorus Level 3.5 mg/dL (2.6-4.7) Albumin 1.7 g/dL (3.4-5.0) Microbiology 06/30/18 Urine Culture - Final, Complete 06/30/18 Urine Culture Result 1 (LINH) - Final, Complete Medications Current Medications Morphine Sulfate (Morphine Sulfate) 4 mg 1X ONCE IV Last administered on 06/29/18at 11:40; Start 06/29/18 at 11:30; Stop 06/29/18 at 11:31; Status DC Ondansetron HCl (Zofran) 4 mg 1X ONCE IV Last administered on 06/29/18at 11:44; Start 06/29/18 at 11:45; Stop 06/29/18 at 11:46; Status DC Ondansetron HCl (Zofran) 4 mg STK-MED ONCE .ROUTE ; Start 06/29/18 at 11:43; Stop 06/29/18 at 11:44; Status DC Ondansetron HCl (Zofran) 4 mg PRN Q8HRS PRN IV NAUSEA/VOMITING; Start 06/29/18 at 12:15; Stop 06/30/18 at 12:14; Status DC Morphine Sulfate (Morphine Sulfate) 4 mg 1X ONCE IV Last administered on 06/29/18 13:25; Start 06/29/18 at 13:30; Stop 06/29/18 at 13:31; Status DC Clonidine HCl (Catapres) 0.1 mg BID PO Last administered on 07/07/18 09:15; Start 06/29/18 at 21:00 Cyanocobalamin (Vitamin B-12) 1,000 mcg DAILY PO Last administered on 07/07/18 09:16; Start 06/29/18 at 16:30 Sevelamer Carbonate (Renvela) 800 mg TIDWMEALS PO Last administered on 07/07/18 11:56; Start 06/29/18 at 17:00 Hydrocortisone (Cortef) 20 mg DAILYWBKFT PO Last administered on 07/02/18 08:55; Start 06/29/18 at 16:30; Stop 07/02/18 at 09:53; Status DC Multivitamins (Thera M Plus) 1 tab DAILY PO Last administered on 07/07/18 09:15; Start 06/29/18 at 16:30 Olanzapine (ZyPREXA) 20 mg QHS PO Last administered on 07/04/18at 19:50; Start 06/29/18 at 21:00; Stop 07/05/18 at 13:49; Status DC Pantoprazole Sodium (Protonix) 40 mg DAILYAC PO Last administered on 06/29/18 18:31; Start 06/29/18 at 16:30; Stop 07/01/18 at 07:33; Status DC Heparin Sodium (Porcine) (Heparin Sodium) 5,000 unit Q8HRS SQ Last administered on 07/07/18 14:20; Start 06/29/18 at 22:00 Acetaminophen (Tylenol) 650 mg 1X ONCE PO Last administered on 06/29/18at 18:32; Start 06/29/18 at 16:30; Stop 06/29/18 at 16:31; Status DC Oxycodone/ Acetaminophen (Percocet 5/325) 1 tab PRN Q4HRS PRN PO PAIN Last administered on 07/06/18at 10:48; Start 06/29/18 at 20:00 Iohexol (Omnipaque 350 Mg/ml) 75 ml 1X ONCE IV Last administered on 06/29/18at 21:01; Start 06/29/18 at 21:00; Stop 06/29/18 at 21:03; Status DC Labetalol HCl (Normodyne Iv Push) 10 mg PRN Q10MIN PRN IVP HYPERTENSION, SEE COMMENTS Last administered on 07/07/18at 10:01; Start 06/29/18 at 21:15 Acetaminophen (Tylenol) 650 mg PRN Q6HRS PRN PO TEMP > 100.4F; Start 06/29/18 at 21:15 Acetaminophen (Tylenol Supp) 650 mg PRN Q4HRS PRN MI TEMP > 100.4F; Start 06/29/18 at 21:15 Aspirin (Ecotrin) 325 mg DAILYWBKFT PO Last administered on 07/07/18at 09:15; Start 06/30/18 at 08:00 Aspirin (Aspirin Rectal Supp) 300 mg PRN DAILY PRN MI IF UNABLE TO TAKE PO; Start 06/29/18 at 21:15 Morphine Sulfate (Morphine Sulfate) 2 mg PRN Q2HR PRN IV SEVERE PAIN 7-10 Last administered on 07/07/18at 12:53; Start 06/29/18 at 22:30 Levetiracetam 500 mg/Dextrose 105 ml @ 420 mls/hr Q12HR IV Last administered on 07/07/18at 10:58; Start 06/30/18 at 00:00 Levetiracetam 1000 mg/Dextrose 110 ml @ 440 mls/hr 1X ONCE IV Last administered on 06/30/18at 02:25; Start 06/30/18 at 02:30; Stop 06/30/18 at 02:44; Status DC Lorazepam (Ativan) 1 mg PRN Q2HRS PRN IV TREMORS; Start 06/30/18 at 02:00 Fosphenytoin Sodium 1390 mg/ Sodium Chloride 77.8 ml @ 311.2 mls/ hr 1X ONCE IV Last administered on 06/30/18at 04:44; Start 06/30/18 at 05:00; Stop 06/30/18 at 05:14; Status DC Propofol 100 ml @ As Directed STK-MED ONCE IV ; Start 06/30/18 at 05:58; Stop 06/30/18 at 05:59; Status DC Succinylcholine Chloride (Anectine) 200 mg STK-MED ONCE .ROUTE ; Start 06/30/18 at 05:59; Stop 06/30/18 at 06:00; Status DC Propofol 100 ml @ 1.39 mls/hr 1X ONCE IV Last administered on 06/30/18at 06:30; Start 06/30/18 at 06:30; Stop 07/01/18 at 17:31; Status DC Succinylcholine Chloride (Anectine) 200 mg 1X ONCE IV Last administered on 06/30/18at 06:21; Start 06/30/18 at 06:30; Stop 06/30/18 at 06:31; Status DC Propofol 100 ml @ 0 mls/hr CONT PRN IV SEE I/O RECORD Last administered on at 02:50; Start 06/30/18 at 06:30; Stop 07/05/18 at 15:46; Status DC Fentanyl Citrate 30 ml @ 0 mls/hr CONT PRN IV SEE PROTOCOL; Start 06/30/18 at 06:30; Stop 07/03/18 at 17:50; Status DC Midazolam HCl 100 ml @ 0 mls/hr CONT PRN IV SEE PROTOCOL; Start 06/30/18 at 06:30; Stop 07/03/18 at 17:50; Status DC Fosphenytoin Sodium (Cerebyx) 100 mg Q8HRS IV Last administered on 07/07/18at 14:05; Start 06/30/18 at 14:00 Hydrocortisone Sodium Succinate (Solu-CORTEF) 100 mg Q8HRS IV Last administered on 07/07/18at 14:05; Start 06/30/18 at 14:00 Lansoprazole (Prevacid) 30 mg DAILYAC NG Last administered on 07/07/18at 07:39; Start 07/01/18 at 07:30 Sodium Chloride 1,000 ml @ 1,000 mls/hr Q1H PRN IV hypotension; Start 07/01/18 at 08:00; Stop 07/01/18 at 18:00; Status DC Albumin Human 200 ml @ 200 mls/hr 1X PRN PRN IV Hypotension; Start 07/01/18 at 08:00; Stop 07/01/18 at 18:00; Status DC Acetaminophen (Tylenol) 500 mg 1X PRN PRN PO MILD PAIN / TEMP; Start 07/01/18 at 07:45; Stop 07/01/18 at 18:00; Status DC Diphenhydramine HCl (Benadryl) 25 mg 1X PRN PRN IV ITCHING; Start 07/01/18 at 07:45; Stop 07/01/18 at 18:00; Status DC Diphenhydramine HCl (Benadryl) 25 mg 1X PRN PRN IV ITCHING; Start 07/01/18 at 07:45; Stop 07/01/18 at 18:00; Status DC Sodium Chloride (Normal Saline Flush) 10 ml 1X PRN PRN IV AP catheter pack; Start 07/01/18 at 07:45; Stop 07/01/18 at 18:00; Status DC Sodium Chloride (Normal Saline Flush) 10 ml 1X PRN PRN IV MANAGER CHILD catheter pack; Start 07/01/18 at 07:45; Stop 07/01/18 at 18:00; Status DC Sodium Chloride 1,000 ml @ 400 mls/hr Q2H30M PRN IV PATENCY; Start 07/01/18 at 08:00; Stop 07/01/18 at 18:00; Status DC Info (PHARMACY MONITORING -- do not chart) 1 each PRN DAILY PRN MC SEE COMMENTS; Start 07/01/18 at 08:00; Stop 07/04/18 at 07:54; Status DC Gentamicin Sulfate (Gentak) 0.25 inch [id number] OU ; Start 07/02/18 at 23:00; Status Cancel Tobramycin Sulfate (Tobrex Ophth Soln) 2 drop Q4HRS OU Last administered on 07/05/18at 08:53; Start 07/03/18 at 00:00; Stop 07/05/18 at 13:05; Status DC Multi-Ingred Cream/Lotion/Oil/ Oint (Artificial Tears Eye Ointment) 1 juliette PRN Q1HR PRN OU DRY EYE; Start 07/03/18 at 18:45 Sodium Chloride 1,000 ml @ 1,000 mls/hr Q1H PRN IV hypotension; Start 07/04/18 at 07:47; Stop 07/04/18 at 13:46; Status DC Albumin Human 200 ml @ 200 mls/hr 1X PRN PRN IV Hypotension; Start 07/04/18 at 08:00; Stop 07/04/18 at 13:59; Status DC Acetaminophen (Tylenol) 500 mg 1X PRN PRN PO MILD PAIN / TEMP; Start 07/04/18 at 08:00; Stop 07/05/18 at 07:59; Status DC Diphenhydramine HCl (Benadryl) 25 mg 1X PRN PRN IV ITCHING; Start 07/04/18 at 08:00; Stop 07/05/18 at 07:59; Status DC Diphenhydramine HCl (Benadryl) 25 mg 1X PRN PRN IV ITCHING; Start 07/04/18 at 08:00; Stop 07/05/18 at 07:59; Status DC Sodium Chloride (Normal Saline Flush) 10 ml 1X PRN PRN IV AP catheter pack; Start 07/04/18 at 08:00; Stop 07/05/18 at 07:59; Status DC Sodium Chloride (Normal Saline Flush) 10 ml 1X PRN PRN IV MANAGER CHILD catheter pack; Start 07/04/18 at 08:00; Stop 07/05/18 at 07:59; Status DC Sodium Chloride 1,000 ml @ 400 mls/hr Q2H30M PRN IV PATENCY; Start 07/04/18 at 07:47; Stop 07/04/18 at 19:46; Status DC Info (PHARMACY MONITORING -- do not chart) 1 each PRN DAILY PRN MC SEE COMMENTS; Start 07/04/18 at 08:00 Ciprofloxacin (Ciloxan Ophth) 2 drop Q1H OU Last administered on 07/07/18at 14:15; Start 07/05/18 at 13:15 Benztropine Mesylate (Cogentin) 1 mg PRN BID PRN PO EXTRAPYRAMIDAL EFFECTS; Start 07/05/18 at 13:45 Hydroxyzine Pamoate (Vistaril) 50 mg TID PO Last administered on 07/07/18at 14:04; Start 07/05/18 at 14:00 Olanzapine (ZyPREXA) 30 mg QHS PO Last administered on 07/06/18at 19:52; Start 07/05/18 at 21:00 Divalproex Sodium (Depakote Er) 1,500 mg QHS PO Last administered on 07/06/18at 19:52; Start 07/05/18 at 21:00 Sodium Chloride 1,000 ml @ 1,000 mls/hr Q1H PRN IV hypotension; Start 07/06/18 at 06:30; Stop 07/06/18 at 06:35; Status DC Diphenhydramine HCl (Benadryl) 25 mg 1X PRN PRN IV ITCHING; Start 07/06/18 at 06:30; Stop 07/07/18 at 06:29; Status DC Diphenhydramine HCl (Benadryl) 25 mg 1X PRN PRN IV ITCHING; Start 07/06/18 at 06:30; Stop 07/07/18 at 06:29; Status DC Sodium Chloride 1,000 ml @ 400 mls/hr Q2H30M PRN IV PATENCY; Start 07/06/18 at 06:30; Stop 07/06/18 at 06:35; Status DC Info (PHARMACY MONITORING -- do not chart) 1 each PRN DAILY PRN MC SEE COMMENTS; Start 07/06/18 at 06:30 Active Scripts Active Clonidine Hcl 0.1 Mg Tablet 0.1 Mg PO BID [Pantoprazole] 40 MG Tablet.dr 40 Mg PO DAILYAC MDD 1 Renvela (Sevelamer Carbonate) 800 Mg Tablet 800 Mg PO TIDWMEALS MDD 1 Reported Depakote (Divalproex Sodium) 500 Mg Tablet.dr 1,500 Mg PO HS Hydroxyzine Hcl 50 Mg Tablet 50 Mg PO TID Olanzapine 10 Mg Tablet 30 Mg PO HS Ibuprofen 400 Mg Tablet 400 Mg PO PRN Q6HRS PRN Benztropine Mesylate 1 Mg Tablet 1 Tab PO BID PRN Haloperidol 10 Mg Tablet 20 Mg PO HS Multivitamins (Multivitamin) 1 Each Tablet 1 Tab PO DAILY Vitamin B-12 (Cyanocobalamin (Vitamin B-12)) 1,000 Mcg Tablet 1 Tab PO DAILY Cortef (Hydrocortisone) 20 Mg Tablet 20 Mg PO DAILY Vitals/I & O Vital Sign - Last 24 Hours 07/06/18 07/06/18 07/06/18 07/06/18 16:16 17:20 19:45 19:49 Temp 98.9 98.3 98.9 98.3 Pulse 92 99 Resp 16 18 18 B/P (MAP) 153/100 (117) 149/110 (123) Pulse Ox 94 93 O2 Delivery Room Air Room Air Room Air Room Air 07/06/18 07/06/18 07/07/18 07/07/18 19:53 23:00 03:00 07:10 Temp 98.0 97.9 98.2 98.0 97.9 98.2 Pulse 99 89 82 80 Resp 18 18 20 B/P (MAP) 149/110 163/111 (128) 154/111 (125) 191/98 (129) Pulse Ox 92 91 O2 Delivery Room Air Room Air Room Air 07/07/18 07/07/18 07/07/18 07/07/18 08:00 09:15 09:22 10:01 Pulse 80 80 Resp 16 B/P (MAP) 191/98 191/98 O2 Delivery Room Air Room Air 07/07/18 07/07/18 07/07/18 11:16 12:53 13:23 Temp 97.7 97.7 Pulse 84 Resp 18 16 16 B/P (MAP) 141/101 (114) Pulse Ox 92 O2 Delivery Room Air Room Air Room Air Intake and Output 07/06/18 07/06/18 07/07/18 15:00 23:00 07:00 Intake Total 440 ml 200 ml Output Total 0 ml Balance 440 ml 200 ml 0 ml MAYELIN AN MD July 07, 2018 15:16
--- NOTE | 2018-07-07 16:16 | PDOC ---
PROGRESS NOTES Assessment Assessment PRES. Vision loss with corneal cloudiness, infection (peripheral etiologies) Hypertensive emergency, BP 212/133 mmHg. Seizure. Metabolic encephalopathy. Vision loss. Petechial cerebral hemorrhage. Renal failure. UTI? Pleural effusion. Anemia. Hypocalcemia. Schizophrenia. Bipolar disorder. RECOMMENDATIONS/PLAN: ASA 325 mg daily. Continue ophthalmological treatment, antibiotic eye drops q1h. Continue Keppra 500 mg bid. BP control. Treat medical diseases. Consulted Ophthalmology and antibiotic eye drops q1h. OT/PT. Past Medical History GI: Hemorrhoids, Other (diarrhea) Heme/Onc: Cancer (thyroid (Para?)) Psych: Anxiety, Depression, Schizophrenia Renal/: Acute renal failure Endocrine: Other (Arron's disease) Past Surgical History Cholecystectomy, Other (cervical fusion, left knee, parathyroidectomy) Family History Hypertension Social History He is homeless, he denied earlier having use of alcohol, tobacco, or street drugs. ROS Negative for fever, chills, weight loss, shortness of breath, chest pain, indigestion, hematochezia, melena, and dysuria. Full 14-point review of systems is negative. ALLERGY: NKDA MEDICATIONS: Refer to MAR PHYSICAL EXAMINATION: General appearance in subacute distress. HEENT: Normocephalic and nontraumatic. Eyes, nose, ears, and throat are unremarkable. Neck is supple. No lymphadenopathy. No Crepitus. Cardiovascular: S1, S2, regular rate and rhythm. Pulmonary: Decreased to auscultation bilaterally. Abdomen: Bowel sounds are positive. Extremities: No rash, lesions, or edema. No restriction of range of motion NEUROLOGICAL EXAMINATION: Drowsiness. Partially oriented to time, place but knew his familiar person. PERRL. EOMI. Corneal cloudiness. Sclera congestion. Only has light perception and sight of close finger movements on 07/07. CN: no focal findings. Muscle tone: within normal. Muscle strength: Moves all extremities to stimuli. DTR: 1-2 Plantar reflex: Neutral response bilaterally Gait: Not able to walk. Sensory exam: Withdraw response noted. Not able to access cerebellar signs this time. F-T-N test not performed due to not follow commands. Objective Objective Vital Signs Date Time Temp Pulse Resp B/P (MAP) Pulse Ox O2 Delivery O2 Flow Rate FiO2 07/07/18 15:16 98.0 87 18 143/107 (119) 93 Room Air 98.0 Intake and Output 07/07/18 06:59 Intake Total 640 ml Output Total 0 ml Balance 640 ml Intake Oral 640 ml Output Urine Total 0 ml Vitals Signs Vitals VS - Last 72 Hours, by Label Date Time Temp Pulse Resp B/P (MAP) Pulse Ox O2 Delivery O2 Flow Rate FiO2 07/07/18 15:16 98.0 87 18 143/107 (119) 93 Room Air 98.0 07/07/18 15:15 18 Room Air 07/07/18 13:23 16 Room Air 07/07/18 12:53 16 Room Air 07/07/18 11:16 97.7 84 18 141/101 (114) 92 Room Air 97.7 07/07/18 10:01 80 191/98 07/07/18 09:22 16 Room Air 07/07/18 09:15 80 191/98 07/07/18 08:00 Room Air 07/07/18 07:10 98.2 80 20 191/98 (129) 91 Room Air 98.2 07/07/18 03:00 97.9 82 18 154/111 (125) Room Air 97.9 07/06/18 23:00 98.0 89 18 163/111 (128) 92 Room Air 98.0 07/06/18 19:53 99 149/110 07/06/18 19:49 98.3 99 18 149/110 (123) 93 Room Air 98.3 07/06/18 19:45 Room Air 07/06/18 17:20 98.9 92 18 153/100 (117) 94 Room Air 98.9 07/06/18 16:16 16 Room Air 07/06/18 15:00 89 Room Air 07/06/18 12:37 16 Room Air 07/06/18 11:48 16 Room Air 07/06/18 10:48 16 Room Air 07/06/18 10:47 85 156/100 07/06/18 08:00 Room Air Laboratory Laboratory Laboratory Tests Test 07/07/18 04:00 White Blood Count 11.0 x10^3/uL (4.0-11.0) Red Blood Count 3.35 x10^6/uL (4.30-5.70) Hemoglobin 10.3 g/dL (13.0-17.5) Hematocrit 31.0 % (39.0-53.0) Mean Corpuscular Volume 93 fL (79-100) Mean Corpuscular Hemoglobin 31 pg (25-35) Mean Corpuscular Hemoglobin Concent 33 g/dL (31-37) Red Cell Distribution Width 16.9 % (11.5-14.5) Platelet Count 299 x10^3/uL (140-400) Neutrophils (%) (Auto) 83 % (31-73) Lymphocytes (%) (Auto) 11 % (24-48) Monocytes (%) (Auto) 6 % (0-9) Eosinophils (%) (Auto) 0 % (0-3) Basophils (%) (Auto) 0 % (0-3) Neutrophils # (Auto) 9.1 x10^3uL (1.8-7.7) Lymphocytes # (Auto) 1.2 x10^3/uL (1.0-4.8) Monocytes # (Auto) 0.7 x10^3/uL (0.0-1.1) Eosinophils # (Auto) 0.0 x10^3/uL (0.0-0.7) Basophils # (Auto) 0.0 x10^3/uL (0.0-0.2) Sodium Level 138 mmol/L (136-145) Potassium Level 4.2 mmol/L (3.5-5.1) Chloride Level 99 mmol/L (98-107) Carbon Dioxide Level 28 mmol/L (21-32) Anion Gap 11 (6-14) Blood Urea Nitrogen 50 mg/dL (8-26) Creatinine 6.2 mg/dL (0.7-1.3) Estimated GFR (Cockcroft-Gault) 9.8 Glucose Level 108 mg/dL (70-99) Calcium Level 7.6 mg/dL (8.5-10.1) Phosphorus Level 3.5 mg/dL (2.6-4.7) Albumin 1.7 g/dL (3.4-5.0) Microbiology 06/30/18 Urine Culture - Final, Complete 06/30/18 Urine Culture Result 1 (LINH) - Final, Complete Comment Review of Relevant I have reviewed the following items medardo (where applicable) has been applied. ROSHNI BASHIR MD July 07, 2018 16:16
[2018-07-07 19:00] VITALS: BP 154/105
[2018-07-07] MEDS: DIVALPROEX EXTENDED RELEASE 500 MG TAB.ER.24H. PO SCH (20:30)
[2018-07-07] MEDS: OLANZapine 5 MG TABLET PO SCH (20:31)
[2018-07-07 23:00] VITALS: BP 143/105
[2018-07-08] MEDS: CIPROFLOXACIN 0.3% OPHTH SOLUTION 5ML BOTTLE. OU SCH ×24 (00:33→23:15)
[2018-07-08 03:00] VITALS: BP 165/121
[2018-07-08] MEDS: FOSPHENYTOIN 100 MG/2 ML VIAL. IV SCH ×3 (05:56→22:15)
[2018-07-08] MEDS: HYDROCORTISONE SOD SUCC/PF 100 MG/2 ML VIAL. IV SCH ×3 (05:56→22:16)
[2018-07-08] MEDS: HEPARIN for SUB-Q USE 5,000 UNIT/ML VIAL. SQ SCH ×3 (05:59→22:21)
[2018-07-08] MEDS: cloNIDine HCL 0.1 MG TABLET PO SCH ×2 (06:38→21:06)
[2018-07-08] MEDS ORDERED: METOPROLOL TART IMMED RELEASE 25 MG TABLET. PO ONE (06:45)
[2018-07-08 06:53] LABS: ALBUMIN 1.7 g/dL (3.4-5.0); CALCIUM 7.4 mg/dL (8.5-10.1); CREATININE 7.7 mg/dL (0.7-1.3); GFR 7.7; PHOSPHORUS 4.6 mg/dL (2.6-4.7); POTASSIUM 4.3 mmol/L (3.5-5.1)
[2018-07-08 06:57] LABS: BASO % 0 % (0-3); EOS % 0 % (0-3); HEMATOCRIT 31.2 % (39.0-53.0); HEMOGLOBIN 10.8 g/dL (13.0-17.5); LYMPH # 1.1 x10^3/uL (1.0-4.8); LYMPH % 10 % (24-48); MEAN CORPUSCULAR HEMOGLOBIN 32 pg (25-35); MEAN CORPUSCULAR HGB CONC 35 g/dL (31-37); MEAN CORPUSCULAR VOLUME 92 fL (79-100); MONO # 0.7 x10^3/uL (0.0-1.1); MONO % 7 % (0-9); NEUT # 8.9 x10^3uL (1.8-7.7); NEUT % 82 % (31-73); PLATELET COUNT 273 x10^3/uL (140-400); RED BLOOD COUNT 3.41 x10^6/uL (4.30-5.70); RED CELL DISTRIBUTION WIDTH 16.9 % (11.5-14.5); WHITE BLOOD COUNT 10.8 x10^3/uL (4.0-11.0)
[2018-07-08 07:00] VITALS: BP 174/97
[2018-07-08] MEDS: LANSOPRAZOLE 30 MG TAB.RAP.DR NG SCH (07:30)
--- NOTE | 2018-07-08 08:34 | PDOC ---
PROGRESS NOTES Chief Complaint Chief Complaint Posterior reversible encephalopathy syndrome on admission Hypertensive emergency resolved Seizure disorder and loss of airway requiring ICU stay and intubation during his admission - extubation 07/03 Vision loss with corneal cloudiness (central + peripheral etiologies ?) recent onset, this was documented 2 days ago, started on Tobramycin, opthalmology consultation has been requested but not available at our institution, verbal recommendation from local profiling machine set up operator greatly appreciated. Most likely infection associated to the use of contact lenses. there were reports that they had been retrieved from the patients eyes on his 2 and 3rd hospital day but today he was rubbing his left eye and an old contact lens came out. Curiously is the eye where he has the better vision, he can count fingers with that eye and only sees light reflection on the left. - Denied transfer to [facility] Metabolic encephalopathy. Resolved Vision loss. Petechial cerebral hemorrhage. Renal failure. secondary to [place] biopsy proven as per review of records. UTI - negative culture Pleural effusion. Anemia. Hypocalcemia. Schizophrenia. Bipolar disorder. Newly started on dialysis Noncompliance [place]'s Hep B Malignant HTN Plan; continue cipro ophtalmic efforts are being made to transfer to institution where ophthalmology services can evaluate his recent vision loss. institutions in the area at capacity and unable to accept in transfer, will try again daily continue current supportive measures will resume home meds further recommendations based on clincal course. History of Present Illness History of Present Illness Patient improved compared to yesterday clinically and but still unable to see. He is able to count my fingers with his left eye but not his right eye. No acute events reported overnight CONCERNS have been addressed to the best of my abilities Vitals Vitals Vital Signs Date Time Temp Pulse Resp B/P (MAP) Pulse Ox O2 Delivery O2 Flow Rate FiO2 07/08/18 06:39 75 175/115 07/08/18 03:00 97.7 16 96 Room Air 97.7 Physical Exam General: Other Heart: Regular rate, Normal S1, Normal S2 Lungs: Clear Abdomen: Normal bowel sounds, Soft Extremities: No cyanosis Skin: No rashes, Other Labs LABS Laboratory Tests Test 07/08/18 06:00 White Blood Count 10.8 x10^3/uL (4.0-11.0) Red Blood Count 3.41 x10^6/uL (4.30-5.70) Hemoglobin 10.8 g/dL (13.0-17.5) Hematocrit 31.2 % (39.0-53.0) Mean Corpuscular Volume 92 fL (79-100) Mean Corpuscular Hemoglobin 32 pg (25-35) Mean Corpuscular Hemoglobin Concent 35 g/dL (31-37) Red Cell Distribution Width 16.9 % (11.5-14.5) Platelet Count 273 x10^3/uL (140-400) Neutrophils (%) (Auto) 82 % (31-73) Lymphocytes (%) (Auto) 10 % (24-48) Monocytes (%) (Auto) 7 % (0-9) Eosinophils (%) (Auto) 0 % (0-3) Basophils (%) (Auto) 0 % (0-3) Neutrophils # (Auto) 8.9 x10^3uL (1.8-7.7) Lymphocytes # (Auto) 1.1 x10^3/uL (1.0-4.8) Monocytes # (Auto) 0.7 x10^3/uL (0.0-1.1) Eosinophils # (Auto) 0.0 x10^3/uL (0.0-0.7) Basophils # (Auto) 0.0 x10^3/uL (0.0-0.2) Sodium Level 137 mmol/L (136-145) Potassium Level 4.3 mmol/L (3.5-5.1) Chloride Level 99 mmol/L (98-107) Carbon Dioxide Level 27 mmol/L (21-32) Anion Gap 11 (6-14) Blood Urea Nitrogen 74 mg/dL (8-26) Creatinine 7.7 mg/dL (0.7-1.3) Estimated GFR (Cockcroft-Gault) 7.7 Glucose Level 99 mg/dL (70-99) Calcium Level 7.4 mg/dL (8.5-10.1) Phosphorus Level 4.6 mg/dL (2.6-4.7) Albumin 1.7 g/dL (3.4-5.0) Assessment and Plan Assessmemt and Plan Problems Medical Problems: (1) Hypertension Status: Acute Comment Review of Relevant I have reviewed the following items medardo (where applicable) has been applied. Labs Laboratory Tests Test 07/07/18 04:00 07/08/18 06:00 White Blood Count 11.0 x10^3/uL (4.0-11.0) 10.8 x10^3/uL (4.0-11.0) Red Blood Count 3.35 x10^6/uL (4.30-5.70) 3.41 x10^6/uL (4.30-5.70) Hemoglobin 10.3 g/dL (13.0-17.5) 10.8 g/dL (13.0-17.5) Hematocrit 31.0 % (39.0-53.0) 31.2 % (39.0-53.0) Mean Corpuscular Volume 93 fL (79-100) 92 fL (79-100) Mean Corpuscular Hemoglobin 31 pg (25-35) 32 pg (25-35) Mean Corpuscular Hemoglobin Concent 33 g/dL (31-37) 35 g/dL (31-37) Red Cell Distribution Width 16.9 % (11.5-14.5) 16.9 % (11.5-14.5) Platelet Count 299 x10^3/uL (140-400) 273 x10^3/uL (140-400) Neutrophils (%) (Auto) 83 % (31-73) 82 % (31-73) Lymphocytes (%) (Auto) 11 % (24-48) 10 % (24-48) Monocytes (%) (Auto) 6 % (0-9) 7 % (0-9) Eosinophils (%) (Auto) 0 % (0-3) 0 % (0-3) Basophils (%) (Auto) 0 % (0-3) 0 % (0-3) Neutrophils # (Auto) 9.1 x10^3uL (1.8-7.7) 8.9 x10^3uL (1.8-7.7) Lymphocytes # (Auto) 1.2 x10^3/uL (1.0-4.8) 1.1 x10^3/uL (1.0-4.8) Monocytes # (Auto) 0.7 x10^3/uL (0.0-1.1) 0.7 x10^3/uL (0.0-1.1) Eosinophils # (Auto) 0.0 x10^3/uL (0.0-0.7) 0.0 x10^3/uL (0.0-0.7) Basophils # (Auto) 0.0 x10^3/uL (0.0-0.2) 0.0 x10^3/uL (0.0-0.2) Sodium Level 138 mmol/L (136-145) 137 mmol/L (136-145) Potassium Level 4.2 mmol/L (3.5-5.1) 4.3 mmol/L (3.5-5.1) Chloride Level 99 mmol/L (98-107) 99 mmol/L (98-107) Carbon Dioxide Level 28 mmol/L (21-32) 27 mmol/L (21-32) Anion Gap 11 (6-14) 11 (6-14) Blood Urea Nitrogen 50 mg/dL (8-26) 74 mg/dL (8-26) Creatinine 6.2 mg/dL (0.7-1.3) 7.7 mg/dL (0.7-1.3) Estimated GFR (Cockcroft-Gault) 9.8 7.7 Glucose Level 108 mg/dL (70-99) 99 mg/dL (70-99) Calcium Level 7.6 mg/dL (8.5-10.1) 7.4 mg/dL (8.5-10.1) Phosphorus Level 3.5 mg/dL (2.6-4.7) 4.6 mg/dL (2.6-4.7) Albumin 1.7 g/dL (3.4-5.0) 1.7 g/dL (3.4-5.0) Laboratory Tests Test 07/08/18 06:00 White Blood Count 10.8 x10^3/uL (4.0-11.0) Red Blood Count 3.41 x10^6/uL (4.30-5.70) Hemoglobin 10.8 g/dL (13.0-17.5) Hematocrit 31.2 % (39.0-53.0) Mean Corpuscular Volume 92 fL (79-100) Mean Corpuscular Hemoglobin 32 pg (25-35) Mean Corpuscular Hemoglobin Concent 35 g/dL (31-37) Red Cell Distribution Width 16.9 % (11.5-14.5) Platelet Count 273 x10^3/uL (140-400) Neutrophils (%) (Auto) 82 % (31-73) Lymphocytes (%) (Auto) 10 % (24-48) Monocytes (%) (Auto) 7 % (0-9) Eosinophils (%) (Auto) 0 % (0-3) Basophils (%) (Auto) 0 % (0-3) Neutrophils # (Auto) 8.9 x10^3uL (1.8-7.7) Lymphocytes # (Auto) 1.1 x10^3/uL (1.0-4.8) Monocytes # (Auto) 0.7 x10^3/uL (0.0-1.1) Eosinophils # (Auto) 0.0 x10^3/uL (0.0-0.7) Basophils # (Auto) 0.0 x10^3/uL (0.0-0.2) Sodium Level 137 mmol/L (136-145) Potassium Level 4.3 mmol/L (3.5-5.1) Chloride Level 99 mmol/L (98-107) Carbon Dioxide Level 27 mmol/L (21-32) Anion Gap 11 (6-14) Blood Urea Nitrogen 74 mg/dL (8-26) Creatinine 7.7 mg/dL (0.7-1.3) Estimated GFR (Cockcroft-Gault) 7.7 Glucose Level 99 mg/dL (70-99) Calcium Level 7.4 mg/dL (8.5-10.1) Phosphorus Level 4.6 mg/dL (2.6-4.7) Albumin 1.7 g/dL (3.4-5.0) Microbiology 06/30/18 Urine Culture - Final, Complete 06/30/18 Urine Culture Result 1 (LINH) - Final, Complete Medications Current Medications Morphine Sulfate (Morphine Sulfate) 4 mg 1X ONCE IV Last administered on 06/29/18at 11:40; Start 06/29/18 at 11:30; Stop 06/29/18 at 11:31; Status DC Ondansetron HCl (Zofran) 4 mg 1X ONCE IV Last administered on 06/29/18at 11:44; Start 06/29/18 at 11:45; Stop 06/29/18 at 11:46; Status DC Ondansetron HCl (Zofran) 4 mg [facility] ONCE .ROUTE ; Start 06/29/18 at 11:43; Stop 06/29/18 at 11:44; Status DC Ondansetron HCl (Zofran) 4 mg PRN Q8HRS PRN IV NAUSEA/VOMITING; Start 06/29/18 at 12:15; Stop 06/30/18 at 12:14; Status DC Morphine Sulfate (Morphine Sulfate) 4 mg 1X ONCE IV Last administered on 06/29/18at 13:25; Start 06/29/18 at 13:30; Stop 06/29/18 at 13:31; Status DC Clonidine HCl (Catapres) 0.1 mg BID PO Last administered on 07/08/18 06:38; Start 06/29/18 at 21:00 Cyanocobalamin (Vitamin B-12) 1,000 mcg DAILY PO Last administered on 07/07/18 09:16; Start 06/29/18 at 16:30 Sevelamer Carbonate (Renvela) 800 mg TIDWMEALS PO Last administered on 07/07/18at 17:30; Start 06/29/18 at 17:00 Hydrocortisone (Cortef) 20 mg DAILYWBKFT PO Last administered on 07/02/18at 08:55; Start 06/29/18 at 16:30; Stop 07/02/18 at 09:53; Status DC Multivitamins (Thera M Plus) 1 tab DAILY PO Last administered on 07/07/18 09:15; Start 06/29/18 at 16:30 Olanzapine (ZyPREXA) 20 mg QHS PO Last administered on 07/04/18at 19:50; Start 06/29/18 at 21:00; Stop 07/05/18 at 13:49; Status DC Pantoprazole Sodium (Protonix) 40 mg DAILYAC PO Last administered on 06/29/18 18:31; Start 06/29/18 at 16:30; Stop 07/01/18 at 07:33; Status DC Heparin Sodium (Porcine) (Heparin Sodium) 5,000 unit Q8HRS SQ Last administered on 07/08/18 05:59; Start 06/29/18 at 22:00 Acetaminophen (Tylenol) 650 mg 1X ONCE PO Last administered on 06/29/18at 18:32; Start 06/29/18 at 16:30; Stop 06/29/18 at 16:31; Status DC Oxycodone/ Acetaminophen (Percocet 5/325) 1 tab PRN Q4HRS PRN PO PAIN Last administered on 07/07/18at 20:31; Start 06/29/18 at 20:00 Iohexol (Omnipaque 350 Mg/ml) 75 ml 1X ONCE IV Last administered on 06/29/18at 21:01; Start 06/29/18 at 21:00; Stop 06/29/18 at 21:03; Status DC Labetalol HCl (Normodyne Iv Push) 10 mg PRN Q10MIN PRN IVP HYPERTENSION, SEE COMMENTS Last administered on 07/07/18at 10:01; Start 06/29/18 at 21:15; Status Future Hold Acetaminophen (Tylenol) 650 mg PRN Q6HRS PRN PO TEMP > 100.4F; Start 06/29/18 at 21:15 Acetaminophen (Tylenol Supp) 650 mg PRN Q4HRS PRN [place] TEMP > 100.4F; Start 06/29/18 at 21:15 Aspirin (Ecotrin) 325 mg DAILYWBKFT PO Last administered on 07/07/18at 09:15; Start 06/30/18 at 08:00 Aspirin (Aspirin Rectal Supp) 300 mg PRN DAILY PRN KS IF UNABLE TO TAKE PO; Start 06/29/18 at 21:15 Morphine Sulfate (Morphine Sulfate) 2 mg PRN Q2HR PRN IV SEVERE PAIN 7-10 Last administered on 07/07/18at 21:36; Start 06/29/18 at 22:30 Levetiracetam 500 mg/Dextrose 105 ml @ 420 mls/hr Q12HR IV Last administered on 07/07/18at 20:32; Start 06/30/18 at 00:00 Levetiracetam 1000 mg/Dextrose 110 ml @ 440 mls/hr 1X ONCE IV Last administered on 06/30/18at 02:25; Start 06/30/18 at 02:30; Stop 06/30/18 at 02:44; Status DC Lorazepam (Ativan) 1 mg PRN Q2HRS PRN IV TREMORS; Start 06/30/18 at 02:00 Fosphenytoin Sodium 1390 mg/ Sodium Chloride 77.8 ml @ 311.2 mls/ hr 1X ONCE IV Last administered on 06/30/18at 04:44; Start 06/30/18 at 05:00; Stop 06/30/18 at 05:14; Status DC Propofol 100 ml @ As Directed STK-MED ONCE IV ; Start 06/30/18 at 05:58; Stop 06/30/18 at 05:59; Status DC Succinylcholine Chloride (Anectine) 200 mg STK-MED ONCE .ROUTE ; Start 06/30/18 at 05:59; Stop 06/30/18 at 06:00; Status DC Propofol 100 ml @ 1.39 mls/hr 1X ONCE IV Last administered on 06/30/18at 06:30; Start 06/30/18 at 06:30; Stop 07/01/18 at 17:31; Status DC Succinylcholine Chloride (Anectine) 200 mg 1X ONCE IV Last administered on 06/30/18at 06:21; Start 06/30/18 at 06:30; Stop 06/30/18 at 06:31; Status DC Propofol 100 ml @ 0 mls/hr CONT PRN IV SEE I/O RECORD Last administered on 07/03/18at 02:50; Start 06/30/18 at 06:30; Stop 07/05/18 at 15:46; Status DC Fentanyl Citrate 30 ml @ 0 mls/hr CONT PRN IV SEE PROTOCOL; Start 06/30/18 at 06:30; Stop 07/03/18 at 17:50; Status DC Midazolam HCl 100 ml @ 0 mls/hr CONT PRN IV SEE PROTOCOL; Start 06/30/18 at 06:30; Stop 07/03/18 at 17:50; Status DC Fosphenytoin Sodium (Cerebyx) 100 mg Q8HRS IV Last administered on 07/08/18at 05:56; Start 06/30/18 at 14:00 Hydrocortisone Sodium Succinate (Solu-CORTEF) 100 mg Q8HRS IV Last administered on 07/08/18at 05:56; Start 06/30/18 at 14:00 Lansoprazole (Prevacid) 30 mg DAILYAC NG Last administered on 07/07/18at 07:39; Start 07/01/18 at 07:30 Sodium Chloride 1,000 ml @ 1,000 mls/hr Q1H PRN IV hypotension; Start 07/01/18 at 08:00; Stop 07/01/18 at 18:00; Status DC Albumin Human 200 ml @ 200 mls/hr 1X PRN PRN IV Hypotension; Start 07/01/18 at 08:00; Stop 07/01/18 at 18:00; Status DC Acetaminophen (Tylenol) 500 mg 1X PRN PRN PO MILD PAIN / TEMP; Start 07/01/18 at 07:45; Stop 07/01/18 at 18:00; Status DC Diphenhydramine HCl (Benadryl) 25 mg 1X PRN PRN IV ITCHING; Start 07/01/18 at 07:45; Stop 07/01/18 at 18:00; Status DC Diphenhydramine HCl (Benadryl) 25 mg 1X PRN PRN IV ITCHING; Start 07/01/18 at 07:45; Stop 07/01/18 at 18:00; Status DC Sodium Chloride (Normal Saline Flush) 10 ml 1X PRN PRN IV AP catheter pack; Start 07/01/18 at 07:45; Stop 07/01/18 at 18:00; Status DC Sodium Chloride (Normal Saline Flush) 10 ml 1X PRN PRN IV [employer] catheter pack; Start 07/01/18 at 07:45; Stop 07/01/18 at 18:00; Status DC Sodium Chloride 1,000 ml @ 400 mls/hr Q2H30M PRN IV PATENCY; Start 07/01/18 at 08:00; Stop 07/01/18 at 18:00; Status DC Info (PHARMACY MONITORING -- do not chart) 1 each PRN DAILY PRN MC SEE COMMENTS; Start 07/01/18 at 08:00; Stop 07/04/18 at 07:54; Status DC Gentamicin Sulfate (Gentak) 0.25 inch [id number] OU ; Start 07/02/18 at 23:00; Status Cancel Tobramycin Sulfate (Tobrex Ophth Soln) 2 drop Q4HRS OU Last administered on 07/05/18at 08:53; Start 07/03/18 at 00:00; Stop 07/05/18 at 13:05; Status DC Multi-Ingred Cream/Lotion/Oil/ Oint (Artificial Tears Eye Ointment) 1 juliette PRN Q1HR PRN OU DRY EYE; Start 07/03/18 at 18:45 Sodium Chloride 1,000 ml @ 1,000 mls/hr Q1H PRN IV hypotension; Start 07/04/18 at 07:47; Stop 07/04/18 at 13:46; Status DC Albumin Human 200 ml @ 200 mls/hr 1X PRN PRN IV Hypotension; Start 07/04/18 at 08:00; Stop 07/04/18 at 13:59; Status DC Acetaminophen (Tylenol) 500 mg 1X PRN PRN PO MILD PAIN / TEMP; Start 07/04/18 at 08:00; Stop 07/05/18 at 07:59; Status DC Diphenhydramine HCl (Benadryl) 25 mg 1X PRN PRN IV ITCHING; Start 07/04/18 at 08:00; Stop 07/05/18 at 07:59; Status DC Diphenhydramine HCl (Benadryl) 25 mg 1X PRN PRN IV ITCHING; Start 07/04/18 at 08:00; Stop 07/05/18 at 07:59; Status DC Sodium Chloride (Normal Saline Flush) 10 ml 1X PRN PRN IV AP catheter pack; Start 07/04/18 at 08:00; Stop 07/05/18 at 07:59; Status DC Sodium Chloride (Normal Saline Flush) 10 ml 1X PRN PRN IV [employer] catheter pack; S tart 07/04/18 at 08:00; Stop 07/05/18 at 07:59; Status DC Sodium Chloride 1,000 ml @ 400 mls/hr Q2H30M PRN IV PATENCY; Start 07/04/18 at 07:47; Stop 07/04/18 at 19:46; Status DC Info (PHARMACY MONITORING -- do not chart) 1 each PRN DAILY PRN MC SEE COMM ENTS; Start 07/04/18 at 08:00 Ciprofloxacin (Ciloxan Ophth) 2 drop Q1H OU Last administered on 07/08/18at 07:15; Start 07/05/18 at 13:15 Benztropine Mesylate (Cogentin) 1 mg PRN BID PRN PO EXTRAPYRAMIDAL EFFECTS; Start 07/05/18 at 13:45 Hydroxyzine Pamoate (Vistaril) 50 mg TID PO Last administered on 07/07/18at 20:31; Start 07/05/18 at 14:00 Olanzapine (ZyPREXA) 30 mg QHS PO Last administered on 07/07/18at 20:31; Start 07/05/18 at 21:00 Divalproex Sodium (Depakote Er) 1,500 mg QHS PO Last administered on 07/07/18at 20:30; Start 07/05/18 at 21:00 Sodium Chloride 1,000 ml @ 1,000 mls/hr Q1H PRN IV hypotension; Start 07/06/18 at 06:30; Stop 07/06/18 at 06:35; Status DC Diphenhydramine HCl (Benadryl) 25 mg 1X PRN PRN IV ITCHING; Start 07/06/18 at 06:30; Stop 07/07/18 at 06:29; Status DC Diphenhydramine HCl (Benadryl) 25 mg 1X PRN PRN IV ITCHING; Start 07/06/18 at 06:30; Stop 07/07/18 at 06:29; Status DC Sodium Chloride 1,000 ml @ 400 mls/hr Q2H30M PRN IV PATENCY; Start 07/06/18 at 06:30; Stop 07/06/18 at 06:35; Status DC Info (PHARMACY MONITORING -- do not chart) 1 each PRN DAILY PRN MC SEE COMMENTS; Start 07/06/18 at 06:30 Metoprolol Tartrate (Lopressor) 25 mg BID PO ; Start 07/08/18 at 21:00 Metoprolol Tartrate (Lopressor) 25 mg ONCE ONCE PO Last administered on 07/08/18at 06:39; Start 07/08/18 at 06:45; Stop 07/08/18 at 06:46; Status DC Active Scripts Active Clonidine Hcl 0.1 Mg Tablet 0.1 Mg PO BID [Pantoprazole] 40 MG Tablet.dr 40 Mg PO DAILYAC MDD 1 Renvela (Sevelamer Carbonate) 800 Mg Tablet 800 Mg PO TIDWMEALS MDD 1 Reported Depakote (Divalproex Sodium) 500 Mg Tablet.dr 1,500 Mg PO HS Hydroxyzine Hcl 50 Mg Tablet 50 Mg PO TID Olanzapine 10 Mg Tablet 30 Mg PO HS Ibuprofen 400 Mg Tablet 400 Mg PO PRN Q6HRS PRN Benztropine Mesylate 1 Mg Tablet 1 Tab PO BID PRN Haloperidol 10 Mg Tablet 20 Mg PO HS Multivitamins (Multivitamin) 1 Each Tablet 1 Tab PO DAILY Vitamin B-12 (Cyanocobalamin (Vitamin B-12)) 1,000 Mcg Tablet 1 Tab PO DAILY Cortef (Hydrocortisone) 20 Mg Tablet 20 Mg PO DAILY Vitals/I & O Vital Sign - Last 24 Hours 07/07/18 07/07/18 07/07/18 07/07/18 09:15 09:22 10:01 11:16 Temp 97.7 97.7 Pulse 80 80 84 Resp 16 18 B/P (MAP) 191/98 191/98 141/101 (114) Pulse Ox 92 O2 Delivery Room Air Room Air 07/07/18 07/07/18 07/07/18 07/07/18 12:53 15:15 15:16 16:15 Temp 98.0 98.0 Pulse 87 Resp 16 18 18 17 B/P (MAP) 143/107 (119) Pulse Ox 93 O2 Delivery Room Air Room Air Room Air Room Air 07/07/18 07/07/18 07/07/18 07/07/18 17:36 18:06 19:00 20:00 Temp 98.1 98.1 Pulse 91 Resp 16 17 18 B/P (MAP) 154/105 (121) Pulse Ox 93 O2 Delivery Room Air Room Air Room Air Room Air 07/07/18 07/07/18 07/08/18 07/08/18 20:31 23:00 00:30 03:00 Temp 97.7 97.7 97.7 97.7 Pulse 91 77 91 Resp 16 16 B/P (MAP) 154/105 143/105 (118) 165/121 (136) Pulse Ox 91 96 O2 Delivery Room Air Room Air Room Air 07/08/18 07/08/18 06:38 06:39 Pulse 75 75 B/P (MAP) 175/115 175/115 Intake and Output 07/07/18 07/07/18 07/08/18 15:00 23:00 07:00 Intake Total 250 ml 300 ml Output Total 500 ml 500 ml Balance 250 ml -200 ml -500 ml ROX SCHILLING MD July 08, 2018 08:34
[2018-07-08] MEDS ORDERED: IV NORMAL SALINE 1000ML BAG 1,000 ML IV PRN ×2 (08:53)
[2018-07-08] MEDS: hydrOXYzine PAMOATE 25 MG CAPSULE PO SCH ×3 (09:00→21:06)
[2018-07-08] MEDS ORDERED: 0.9 % SODIUM CHLORIDE 10 ML DISP.SYRIN. IV PRN ×2 (09:00)
[2018-07-08] MEDS ORDERED: DIALYSIS PATIENT. MC PRN ×2 (09:00)
[2018-07-08] MEDS ORDERED: ALBUMIN HUMAN 25% 200 ML IV PRN (09:00)
[2018-07-08] MEDS: SEVELAMER CARBONATE 800 MG TABLET. PO SCH ×3 (09:11→17:38)
--- NOTE | 2018-07-08 13:18 | PDOC ---
PROGRESS NOTES Subjective Subjective SEEN IN FOLLOW UP OF RENAL FAILURE Objective Objective Vital Signs Date Time Temp Pulse Resp B/P (MAP) Pulse Ox O2 Delivery O2 Flow Rate FiO2 07/08/18 07:00 98.1 77 16 174/97 (122) 94 Room Air 98.1 07/05/18 15:00 3.0 Intake and Output 07/08/18 07:00 Intake Total 550 ml Output Total 1000 ml Balance -450 ml Intake Oral 550 ml Output Urine Total 1000 ml Physical Exam Abdomen: Normal bowel sounds Heart: Regular rate Extremities: No clubbing, No cyanosis, No edema, Normal pulses, No tenderness/swelling General: Alert, Oriented X3, Cooperative, No acute distress Lungs: Clear to auscultation, Normal air movement Psych/Mental Status: Mental status NL, Mood NL Diagnosis RENAL FAILURE: ESRD Assessment Assessment Problems Medical Problems: (1) Hypertension Status: Acute Plan Plan of Care DIALYSIS TODAY AND TOLERATED WELL. CONT Q TTS HD. EPOGEN NEEDED Comment Review of Relevant I have reviewed the following items medardo (where applicable) has been applied. Labs Laboratory Tests Test 07/07/18 04:00 07/08/18 06:00 White Blood Count 11.0 x10^3/uL (4.0-11.0) 10.8 x10^3/uL (4.0-11.0) Red Blood Count 3.35 x10^6/uL (4.30-5.70) 3.41 x10^6/uL (4.30-5.70) Hemoglobin 10.3 g/dL (13.0-17.5) 10.8 g/dL (13.0-17.5) Hematocrit 31.0 % (39.0-53.0) 31.2 % (39.0-53.0) Mean Corpuscular Volume 93 fL (79-100) 92 fL (79-100) Mean Corpuscular Hemoglobin 31 pg (25-35) 32 pg (25-35) Mean Corpuscular Hemoglobin Concent 33 g/dL (31-37) 35 g/dL (31-37) Red Cell Distribution Width 16.9 % (11.5-14.5) 16.9 % (11.5-14.5) Platelet Count 299 x10^3/uL (140-400) 273 x10^3/uL (140-400) Neutrophils (%) (Auto) 83 % (31-73) 82 % (31-73) Lymphocytes (%) (Auto) 11 % (24-48) 10 % (24-48) Monocytes (%) (Auto) 6 % (0-9) 7 % (0-9) Eosinophils (%) (Auto) 0 % (0-3) 0 % (0-3) Basophils (%) (Auto) 0 % (0-3) 0 % (0-3) Neutrophils # (Auto) 9.1 x10^3uL (1.8-7.7) 8.9 x10^3uL (1.8-7.7) Lymphocytes # (Auto) 1.2 x10^3/uL (1.0-4.8) 1.1 x10^3/uL (1.0-4.8) Monocytes # (Auto) 0.7 x10^3/uL (0.0-1.1) 0.7 x10^3/uL (0.0-1.1) Eosinophils # (Auto) 0.0 x10^3/uL (0.0-0.7) 0.0 x10^3/uL (0.0-0.7) Basophils # (Auto) 0.0 x10^3/uL (0.0-0.2) 0.0 x10^3/uL (0.0-0.2) Sodium Level 138 mmol/L (136-145) 137 mmol/L (136-145) Potassium Level 4.2 mmol/L (3.5-5.1) 4.3 mmol/L (3.5-5.1) Chloride Level 99 mmol/L (98-107) 99 mmol/L (98-107) Carbon Dioxide Level 28 mmol/L (21-32) 27 mmol/L (21-32) Anion Gap 11 (6-14) 11 (6-14) Blood Urea Nitrogen 50 mg/dL (8-26) 74 mg/dL (8-26) Creatinine 6.2 mg/dL (0.7-1.3) 7.7 mg/dL (0.7-1.3) Estimated GFR (Cockcroft-Gault) 9.8 7.7 Glucose Level 108 mg/dL (70-99) 99 mg/dL (70-99) Calcium Level 7.6 mg/dL (8.5-10.1) 7.4 mg/dL (8.5-10.1) Phosphorus Level 3.5 mg/dL (2.6-4.7) 4.6 mg/dL (2.6-4.7) Albumin 1.7 g/dL (3.4-5.0) 1.7 g/dL (3.4-5.0) Laboratory Tests Test 07/08/18 06:00 White Blood Count 10.8 x10^3/uL (4.0-11.0) Red Blood Count 3.41 x10^6/uL (4.30-5.70) Hemoglobin 10.8 g/dL (13.0-17.5) Hematocrit 31.2 % (39.0-53.0) Mean Corpuscular Volume 92 fL (79-100) Mean Corpuscular Hemoglobin 32 pg (25-35) Mean Corpuscular Hemoglobin Concent 35 g/dL (31-37) Red Cell Distribution Width 16.9 % (11.5-14.5) Platelet Count 273 x10^3/uL (140-400) Neutrophils (%) (Auto) 82 % (31-73) Lymphocytes (%) (Auto) 10 % (24-48) Monocytes (%) (Auto) 7 % (0-9) Eosinophils (%) (Auto) 0 % (0-3) Basophils (%) (Auto) 0 % (0-3) Neutrophils # (Auto) 8.9 x10^3uL (1.8-7.7) Lymphocytes # (Auto) 1.1 x10^3/uL (1.0-4.8) Monocytes # (Auto) 0.7 x10^3/uL (0.0-1.1) Eosinophils # (Auto) 0.0 x10^3/uL (0.0-0.7) Basophils # (Auto) 0.0 x10^3/uL (0.0-0.2) Sodium Level 137 mmol/L (136-145) Potassium Level 4.3 mmol/L (3.5-5.1) Chloride Level 99 mmol/L (98-107) Carbon Dioxide Level 27 mmol/L (21-32) Anion Gap 11 (6-14) Blood Urea Nitrogen 74 mg/dL (8-26) Creatinine 7.7 mg/dL (0.7-1.3) Estimated GFR (Cockcroft-Gault) 7.7 Glucose Level 99 mg/dL (70-99) Calcium Level 7.4 mg/dL (8.5-10.1) Phosphorus Level 4.6 mg/dL (2.6-4.7) Albumin 1.7 g/dL (3.4-5.0) Microbiology 06/30/18 Urine Culture - Final, Complete 06/30/18 Urine Culture Result 1 (LINH) - Final, Complete Medications Current Medications Morphine Sulfate (Morphine Sulfate) 4 mg 1X ONCE IV Last administered on 06/29/18at 11:40; Start 06/29/18 at 11:30; Stop 06/29/18 at 11:31; Status DC Ondansetron HCl (Zofran) 4 mg 1X ONCE IV Last administered on 06/29/18at 11:44; Start 06/29/18 at 11:45; Stop 06/29/18 at 11:46; Status DC Ondansetron HCl (Zofran) 4 mg STK-MED ONCE .ROUTE ; Start 06/29/18 at 11:43; Stop 06/29/18 at 11:44; Status DC Ondansetron HCl (Zofran) 4 mg PRN Q8HRS PRN IV NAUSEA/VOMITING; Start 06/29/18 at 12:15; Stop 06/30/18 at 12:14; Status DC Morphine Sulfate (Morphine Sulfate) 4 mg 1X ONCE IV Last administered on 06/29/18at 13:25; Start 06/29/18 at 13:30; Stop 06/29/18 at 13:31; Status DC Clonidine HCl (Catapres) 0.1 mg BID PO Last administered on 07/08/18at 06:38; Start 06/29/18 at 21:00 Cyanocobalamin (Vitamin B-12) 1,000 mcg DAILY PO Last administered on 07/07/18at 09:16; Start 06/29/18 at 16:30 Sevelamer Carbonate (Renvela) 800 mg TIDWMEALS PO Last administered on 07/08/18at 09:11; Start 06/29/18 at 17:00 Hydrocortisone (Cortef) 20 mg DAILYWBKFT PO Last administered on 07/02/18 08:55; Start 06/29/18 at 16:30; Stop 07/02/18 at 09:53; Status DC Multivitamins (Thera M Plus) 1 tab DAILY PO Last administered on 07/07/18at 09:15; Start 06/29/18 at 16:30 Olanzapine (ZyPREXA) 20 mg QHS PO Last administered on 07/04/18at 19:50; Start 06/29/18 at 21:00; Stop 07/05/18 at 13:49; Status DC Pantoprazole Sodium (Protonix) 40 mg DAILYAC PO Last administered on 06/29/18 18:31; Start 06/29/18 at 16:30; Stop 07/01/18 at 07:33; Status DC Heparin Sodium (Porcine) (Heparin Sodium) 5,000 unit Q8HRS SQ Last administered on 07/08/18at 05:59; Start 06/29/18 at 22:00 Acetaminophen (Tylenol) 650 mg 1X ONCE PO Last administered on 06/29/18at 18:32; Start 06/29/18 at 16:30; Stop 06/29/18 at 16:31; Status DC Oxycodone/ Acetaminophen (Percocet 5/325) 1 tab PRN Q4HRS PRN PO PAIN Last administered on 07/07/18at 20:31; Start 06/29/18 at 20:00 Iohexol (Omnipaque 350 Mg/ml) 75 ml 1X ONCE IV Last administered on 06/29/18at 21:01; Start 06/29/18 at 21:00; Stop 06/29/18 at 21:03; Status DC Labetalol HCl (Normodyne Iv Push) 10 mg PRN Q10MIN PRN IVP HYPERTENSION, SEE COMMENTS Last administered on 07/07/18at 10:01; Start 06/29/18 at 21:15; Status Future Hold Acetaminophen (Tylenol) 650 mg PRN Q6HRS PRN PO TEMP > 100.4F; Start 06/29/18 at 21:15 Acetaminophen (Tylenol Supp) 650 mg PRN Q4HRS PRN NV TEMP > 100.4F; Start 06/29/18 at 21:15 Aspirin (Ecotrin) 325 mg DAILYWBKFT PO Last administered on 07/07/18at 09:15; Start 06/30/18 at 08:00 Aspirin (Aspirin Rectal Supp) 300 mg PRN DAILY PRN NV IF UNABLE TO TAKE PO; Start 06/29/18 at 21:15 Morphine Sulfate (Morphine Sulfate) 2 mg PRN Q2HR PRN IV SEVERE PAIN 7-10 Last administered on 07/07/18at 21:36; Start 06/29/18 at 22:30 Levetiracetam 500 mg/Dextrose 105 ml @ 420 mls/hr Q12HR IV Last administered on 07/07/18at 20:32; Start 06/30/18 at 00:00 Levetiracetam 1000 mg/Dextrose 110 ml @ 440 mls/hr 1X ONCE IV Last administered on 06/30/18at 02:25; Start 06/30/18 at 02:30; Stop 06/30/18 at 02:44; Status DC Lorazepam (Ativan) 1 mg PRN Q2HRS PRN IV TREMORS; Start 06/30/18 at 02:00 Fosphenytoin Sodium 1390 mg/ Sodium Chloride 77.8 ml @ 311.2 mls/ hr 1X ONCE IV Last administered on 06/30/18at 04:44; Start 06/30/18 at 05:00; Stop 06/30/18 at 05:14; Status DC Propofol 100 ml @ As Directed STK-MED ONCE IV ; Start 06/30/18 at 05:58; Stop 06/30/18 at 05:59; Status DC Succinylcholine Chloride (Anectine) 200 mg STK-MED ONCE .ROUTE ; Start 06/30/18 at 05:59; Stop 06/30/18 at 06:00; Status DC Propofol 100 ml @ 1.39 mls/hr 1X ONCE IV Last administered on 06/30/18at 06:30; Start 06/30/18 at 06:30; Stop 07/01/18 at 17:31; Status DC Succinylcholine Chloride (Anectine) 200 mg 1X ONCE IV Last administered on 06/30/18at 06:21; Start 06/30/18 at 06:30; Stop 06/30/18 at 06:31; Status DC Propofol 100 ml @ 0 mls/hr CONT PRN IV SEE I/O RECORD Last administered on 07/03/18at 02:50; Start 06/30/18 at 06:30; Stop 07/05/18 at 15:46; Status DC Fentanyl Citrate 30 ml @ 0 mls/hr CONT PRN IV SEE PROTOCOL; Start 06/30/18 at 06:30; Stop 07/03/18 at 17:50; Status DC Midazolam HCl 100 ml @ 0 mls/hr CONT PRN IV SEE PROTOCOL; Start 06/30/18 at 06:30; Stop 07/03/18 at 17:50; Status DC Fosphenytoin Sodium (Cerebyx) 100 mg Q8HRS IV Last administered on 07/08/18at 05:56; Start 06/30/18 at 14:00 Hydrocortisone Sodium Succinate (Solu-CORTEF) 100 mg Q8HRS IV Last administered on 07/08/18at 05:56; Start 06/30/18 at 14:00 Lansoprazole (Prevacid) 30 mg DAILYAC NG Last administered on 07/07/18at 07:39; Start 07/01/18 at 07:30 Sodium Chloride 1,000 ml @ 1,000 mls/hr Q1H PRN IV hypotension; Start 07/01/18 at 08:00; Stop 07/01/18 at 18:00; Status DC Albumin Human 200 ml @ 200 mls/hr 1X PRN PRN IV Hypotension; Start 07/01/18 at 08:00; Stop 07/01/18 at 18:00; Status DC Acetaminophen (Tylenol) 500 mg 1X PRN PRN PO MILD PAIN / TEMP; Start 07/01/18 at 07:45; Stop 07/01/18 at 18:00; Status DC Diphenhydramine HCl (Benadryl) 25 mg 1X PRN PRN IV ITCHING; Start 07/01/18 at 07:45; Stop 07/01/18 at 18:00; Status DC Diphenhydramine HCl (Benadryl) 25 mg 1X PRN PRN IV ITCHING; Start 07/01/18 at 07:45; Stop 07/01/18 at 18:00; Status DC Sodium Chloride (Normal Saline Flush) 10 ml 1X PRN PRN IV AP catheter pack; Start 07/01/18 at 07:45; Stop 07/01/18 at 18:00; Status DC Sodium Chloride (Normal Saline Flush) 10 ml 1X PRN PRN IV [employer]ENT[employer] catheter pack; Start 07/01/18 at 07:45; Stop 07/01/18 at 18:00; Status DC Sodium Chloride 1,000 ml @ 400 mls/hr Q2H30M PRN IV PATENCY; Start 07/01/18 at 08:00; Stop 07/01/18 at 18:00; Status DC Info (PHARMACY MONITORING -- do not chart) 1 each PRN DAILY PRN MC SEE COMMENTS; Start 07/01/18 at 08:00; Stop 07/04/18 at 07:54; Status DC Gentamicin Sulfate (Gentak) 0.25 inch [id number] OU ; Start 07/02/18 at 23:00; Status Cancel Tobramycin Sulfate (Tobrex Ophth Soln) 2 drop Q4HRS OU Last administered on 07/05/18at 08:53; Start 07/03/18 at 00:00; Stop 07/05/18 at 13:05; Status DC Multi-Ingred Cream/Lotion/Oil/ Oint (Artificial Tears Eye Ointment) 1 juliette PRN Q1HR PRN OU DRY EYE; Start 07/03/18 at 18:45 Sodium Chloride 1,000 ml @ 1,000 mls/hr Q1H PRN IV hypotension; Start 07/04/18 at 07:47; Stop 07/04/18 at 13:46; Status DC Albumin Human 200 ml @ 200 mls/hr 1X PRN PRN IV Hypotension; Start 07/04/18 at 08:00; Stop 07/04/18 at 13:59; Status DC Acetaminophen (Tylenol) 500 mg 1X PRN PRN PO MILD PAIN / TEMP; Start 07/04/18 at 08:00; Stop 07/05/18 at 07:59; Status DC Diphenhydramine HCl (Benadryl) 25 mg 1X PRN PRN IV ITCHING; Start 07/04/18 at 08:00; Stop 07/05/18 at 07:59; Status DC Diphenhydramine HCl (Benadryl) 25 mg 1X PRN PRN IV ITCHING; Start 07/04/18 at 08:00; Stop 07/05/18 at 07:59; Status DC Sodium Chloride (Normal Saline Flush) 10 ml 1X PRN PRN IV AP catheter pack; Start 07/04/18 at 08:00; Stop 07/05/18 at 07:59; Status DC Sodium Chloride (Normal Saline Flush) 10 ml 1X PRN PRN IV [employer] catheter pack; Start 07/04/18 at 08:00; Stop 07/05/18 at 07:59; Status DC Sodium Chloride 1,000 ml @ 400 mls/hr Q2H30M PRN IV PATENCY; Start 07/04/18 at 07:47; Stop 07/04/18 at 19:46; Status DC Info (PHARMACY MONITORING -- do not chart) 1 each PRN DAILY PRN MC SEE COMMENTS ; Start 07/04/18 at 08:00 Ciprofloxacin (Ciloxan Ophth) 2 drop Q1H OU Last administered on 07/08/18at 08:15; Start 07/05/18 at 13:15 Benztropine Mesylate (Cogentin) 1 mg PRN BID PRN PO EXTRAPYRAMIDAL EFFECTS; Start 07/05/18 at 13:45 Hydroxyzine Pamoate (Vistaril) 50 mg TID PO Last administered on 07/07/18at 20:31; Start 07/05/18 at 14:00 Olanzapine (ZyPREXA) 30 mg QHS PO Last administered on 07/07/18at 20:31; Start 07/05/18 at 21:00 Divalproex Sodium (Depakote Er) 1,500 mg QHS PO Last administered on 07/07/18at 20:30; Start 07/05/18 at 21:00 Sodium Chloride 1,000 ml @ 1,000 mls/hr Q1H PRN IV hypotension; Start 07/06/18 at 06:30; Stop 07/06/18 at 06:35; Status DC Diphenhydramine HCl (Benadryl) 25 mg 1X PRN PRN IV ITCHING; Start 07/06/18 at 06:30; Stop 07/07/18 at 06:29; Status DC Diphenhydramine HCl (Benadryl) 25 mg 1X PRN PRN IV ITCHING; Start 07/06/18 at 06:30; Stop 07/07/18 at 06:29; Status DC Sodium Chloride 1,000 ml @ 400 mls/hr Q2H30M PRN IV PATENCY; Start 07/06/18 at 06:30; Stop 07/06/18 at 06:35; Status DC Info (PHARMACY MONITORING -- do not chart) 1 each PRN DAILY PRN MC SEE COMMENTS; Start 07/06/18 at 06:30 Metoprolol Tartrate (Lopressor) 25 mg BID PO ; Start 07/08/18 at 21:00 Metoprolol Tartrate (Lopressor) 25 mg ONCE ONCE PO Last administered on 07/08/18at 06:39; Start 07/08/18 at 06:45; Stop 07/08/18 at 06:46; Status DC Sodium Chloride 1,000 ml @ 1,000 mls/hr Q1H PRN IV hypotension; Start 07/08/18 at 08:53; Stop 07/08/18 at 14:52 Albumin Human 200 ml @ 200 mls/hr 1X PRN PRN IV Hypotension; Start 07/08/18 at 09:00; Stop 07/08/18 at 14:59 Sodium Chloride (Normal Saline Flush) 10 ml 1X PRN PRN IV AP catheter pack; Start 07/08/18 at 09:00; Stop 07/09/18 at 08:59 Sodium Chloride (Normal Saline Flush) 10 ml 1X PRN PRN IV [employer] catheter pack; Start 07/08/18 at 09:00; Stop 07/09/18 at 08:59 Sodium Chloride 1,000 ml @ 400 mls/hr Q2H30M PRN IV PATENCY; Start 07/08/18 at 08:53; Stop 07/08/18 at 20:52 Info (PHARMACY MONITORING -- do not chart) 1 each PRN DAILY PRN MC SEE COMMENTS; Start 07/08/18 at 09:00; Status UNV Info (PHARMACY MONITORING -- do not chart) 1 each PRN DAILY PRN MC SEE COMMENTS; Start 07/08/18 at 09:00; Status UNV Active Scripts Active Clonidine Hcl 0.1 Mg Tablet 0.1 Mg PO BID [Pantoprazole] 40 MG Tablet.dr 40 Mg PO DAILYAC MDD 1 Renvela (Sevelamer Carbonate) 800 Mg Tablet 800 Mg PO TIDWMEALS MDD 1 Reported Depakote (Divalproex Sodium) 500 Mg Tablet.dr 1,500 Mg PO HS Hydroxyzine Hcl 50 Mg Tablet 50 Mg PO TID Olanzapine 10 Mg Tablet 30 Mg PO HS Ibuprofen 400 Mg Tablet 400 Mg PO PRN Q6HRS PRN Benztropine Mesylate 1 Mg Tablet 1 Tab PO BID PRN Haloperidol 10 Mg Tablet 20 Mg PO HS Multivitamins (Multivitamin) 1 Each Tablet 1 Tab PO DAILY Vitamin B-12 (Cyanocobalamin (Vitamin B-12)) 1,000 Mcg Tablet 1 Tab PO DAILY Cortef (Hydrocortisone) 20 Mg Tablet 20 Mg PO DAILY Vitals/I & O Vital Sign - Last 24 Hours 07/07/18 07/07/18 07/07/18 07/07/18 15:15 15:16 16:15 17:36 Temp 98.0 98.0 Pulse 87 Resp 18 18 17 16 B/P (MAP) 143/107 (119) Pulse Ox 93 O2 Delivery Room Air Room Air Room Air Room Air 07/07/18 07/07/18 07/07/18 07/07/18 18:06 19:00 20:00 20:31 Temp 98.1 98.1 Pulse 91 91 Resp 18 B/P (MAP) 154/105 (121) 154/105 Pulse Ox 93 O2 Delivery Room Air Room Air Room Air 07/07/18 07/08/18 07/08/18 07/08/18 23:00 00:30 03:00 06:38 Temp 97.7 97.7 97.7 97.7 Pulse 77 91 75 Resp 16 16 B/P (MAP) 143/105 (118) 165/121 (136) 175/115 Pulse Ox 91 96 O2 Delivery Room Air Room Air Room Air 07/08/18 07/08/18 06:39 07:00 Temp 98.1 98.1 Pulse 75 77 Resp 16 B/P (MAP) 175/115 174/97 (122) Pulse Ox 94 O2 Delivery Room Air Intake and Output 07/07/18 07/07/18 07/08/18 15:00 23:00 07:00 Intake Total 250 ml 300 ml Output Total 500 ml 500 ml Balance 250 ml -200 ml -500 ml YELITZA SLADE MD July 08, 2018 13:18
[2018-07-08] MEDS: levETIRAcetam 500 MG in IV DEXTROSE 5% 100ML 100 ML IV SCH ×2 (13:22→21:04)
[2018-07-08] MEDS: MULTIVITAMIN with MINERAL TABLET. PO SCH (13:23)
[2018-07-08] MEDS: oxyCODONE/APAP 5/325 1 TAB TABLET PO PRN ×2 (13:31→18:32)
[2018-07-08] MEDS: CYANOCOBALAMIN (VITAMIN B-12) 1,000 MCG TABLET. PO SCH (13:31)
[2018-07-08] MEDS: ASPIRIN ENTERIC COATED 325 MG TABLET.DR. PO SCH (13:34)
[2018-07-08 15:00] VITALS: BP 151/96
--- NOTE | 2018-07-08 15:12 | PDOC ---
PROGRESS NOTES Assessment Assessment PRES. Vision loss with corneal cloudiness, infection (peripheral etiologies) Hypertensive emergency, BP 212/133 mmHg. Seizure. Metabolic encephalopathy. Vision loss. Petechial cerebral hemorrhage. Renal failure. UTI? Pleural effusion. Anemia. Hypocalcemia. Schizophrenia. Bipolar disorder. RECOMMENDATIONS/PLAN: ASA 325 mg daily. Continue ophthalmological treatment, antibiotic eye drops q1h. Continue Keppra 500 mg bid. BP control. Treat medical diseases. Continue dialysis. Transfer to other medical facility with in house ophthalmology services. OT/PT. Past Medical History GI: Hemorrhoids, Other (diarrhea) Heme/Onc: Cancer (thyroid (Para?)) Psych: Anxiety, Depression, Schizophrenia Renal/: Acute renal failure Endocrine: Other (Arron's disease) Past Surgical History Cholecystectomy, Other (cervical fusion, left knee, parathyroidectomy) Family History Hypertension Social History He is homeless, he denied earlier having use of alcohol, tobacco, or street drugs. ROS Negative for fever, chills, weight loss, shortness of breath, chest pain, indigestion, hematochezia, melena, and dysuria. Full 14-point review of systems is negative. ALLERGY: NKDA MEDICATIONS: Refer to MAR PHYSICAL EXAMINATION: General appearance in subacute distress. HEENT: Normocephalic and nontraumatic. Eyes, nose, ears, and throat are unremarkable. Neck is supple. No lymphadenopathy. No Crepitus. Cardiovascular: S1, S2, regular rate and rhythm. Pulmonary: Decreased to auscultation bilaterally. Abdomen: Bowel sounds are positive. Extremities: No rash, lesions, or edema. No restriction of range of motion NEUROLOGICAL EXAMINATION: Drowsiness. Partially oriented to time, place but knew his familiar person. PERRL. EOMI. Corneal cloudiness. Sclera congestion. Only has light perception and sight for close finger movements. CN: no focal findings. Muscle tone: within normal. Muscle strength: Moves all extremities to stimuli. DTR: 1-2 Plantar reflex: Neutral response bilaterally Gait: Not able to walk. Sensory exam: Withdraw response noted. Not able to access cerebellar signs this time. F-T-N test not performed due to not follow commands. Objective Objective Vital Signs Date Time Temp Pulse Resp B/P (MAP) Pulse Ox O2 Delivery O2 Flow Rate FiO2 07/08/18 13:31 20 Room Air 07/08/18 07:00 98.1 77 174/97 (122) 94 98.1 Intake and Output 07/08/18 06:59 Intake Total 550 ml Output Total 1000 ml Balance -450 ml Intake Oral 550 ml Output Urine Total 1000 ml Vitals Signs Vitals VS - Last 72 Hours, by Label Date Time Temp Pulse Resp B/P (MAP) Pulse Ox O2 Delivery O2 Flow Rate FiO2 07/08/18 13:31 20 Room Air 07/08/18 07:00 98.1 77 16 174/97 (122) 94 Room Air 98.1 07/08/18 06:39 75 175/115 07/08/18 06:38 75 175/115 07/08/18 03:00 97.7 91 16 165/121 (136) 96 Room Air 97.7 07/08/18 00:30 Room Air 07/07/18 23:00 97.7 77 16 143/105 (118) 91 Room Air 97.7 07/07/18 20:31 91 154/105 07/07/18 20:00 Room Air 07/07/18 19:00 98.1 91 18 154/105 (121) 93 Room Air 98.1 07/07/18 18:06 17 Room Air 07/07/18 17:36 16 Room Air 07/07/18 16:15 17 Room Air 07/07/18 15:16 98.0 87 18 143/107 (119) 93 Room Air 98.0 07/07/18 15:15 18 Room Air 07/07/18 12:53 16 Room Air 07/07/18 11:16 97.7 84 18 141/101 (114) 92 Room Air 97.7 07/07/18 10:01 80 191/98 07/07/18 09:22 16 Room Air 07/07/18 09:15 80 191/98 07/07/18 08:00 Room Air 07/07/18 07:10 98.2 80 20 191/98 (129) 91 Room Air 98.2 Laboratory Laboratory Laboratory Tests Test 07/08/18 06:00 White Blood Count 10.8 x10^3/uL (4.0-11.0) Red Blood Count 3.41 x10^6/uL (4.30-5.70) Hemoglobin 10.8 g/dL (13.0-17.5) Hematocrit 31.2 % (39.0-53.0) Mean Corpuscular Volume 92 fL (79-100) Mean Corpuscular Hemoglobin 32 pg (25-35) Mean Corpuscular Hemoglobin Concent 35 g/dL (31-37) Red Cell Distribution Width 16.9 % (11.5-14.5) Platelet Count 273 x10^3/uL (140-400) Neutrophils (%) (Auto) 82 % (31-73) Lymphocytes (%) (Auto) 10 % (24-48) Monocytes (%) (Auto) 7 % (0-9) Eosinophils (%) (Auto) 0 % (0-3) Basophils (%) (Auto) 0 % (0-3) Neutrophils # (Auto) 8.9 x10^3uL (1.8-7.7) Lymphocytes # (Auto) 1.1 x10^3/uL (1.0-4.8) Monocytes # (Auto) 0.7 x10^3/uL (0.0-1.1) Eosinophils # (Auto) 0.0 x10^3/uL (0.0-0.7) Basophils # (Auto) 0.0 x10^3/uL (0.0-0.2) Sodium Level 137 mmol/L (136-145) Potassium Level 4.3 mmol/L (3.5-5.1) Chloride Level 99 mmol/L (98-107) Carbon Dioxide Level 27 mmol/L (21-32) Anion Gap 11 (6-14) Blood Urea Nitrogen 74 mg/dL (8-26) Creatinine 7.7 mg/dL (0.7-1.3) Estimated GFR (Cockcroft-Gault) 7.7 Glucose Level 99 mg/dL (70-99) Calcium Level 7.4 mg/dL (8.5-10.1) Phosphorus Level 4.6 mg/dL (2.6-4.7) Albumin 1.7 g/dL (3.4-5.0) Microbiology 06/30/18 Urine Culture - Final, Complete 06/30/18 Urine Culture Result 1 (LINH) - Final, Complete Medication Medications Current Medications Albumin Human 200 ml @ 200 mls/hr 1X PRN PRN IV Hypotension; Start 07/08/18 at 09:00; Stop 07/08/18 at 14:59; Status DC Info (PHARMACY MONITORING -- do not chart) 1 each PRN DAILY PRN MC SEE COMMENTS; Start 07/08/18 at 09:00; Status UNV Info (PHARMACY MONITORING -- do not chart) 1 each PRN DAILY PRN MC SEE COMMENTS; Start 07/08/18 at 09:00; Status UNV Metoprolol Tartrate (Lopressor) 25 mg BID PO ; Start 07/08/18 at 21:00 Metoprolol Tartrate (Lopressor) 25 mg ONCE ONCE PO Last administered on 07/08/18at 06:39; Start 07/08/18 at 06:45; Stop 07/08/18 at 06:46; Status DC Sodium Chloride 1,000 ml @ 400 mls/hr Q2H30M PRN IV PATENCY; Start 07/08/18 at 08:53; Stop 07/08/18 at 20:52 Sodium Chloride 1,000 ml @ 1,000 mls/hr Q1H PRN IV hypotension; Start 07/08/18 at 08:53; Stop 07/08/18 at 14:52; Status DC Sodium Chloride (Normal Saline Flush) 10 ml 1X PRN PRN IV AP catheter pack; Start 07/08/18 at 09:00; Stop 07/09/18 at 08:59 Sodium Chloride (Normal Saline Flush) 10 ml 1X PRN PRN IV STEEL [employer] catheter pack; Start 07/08/18 at 09:00; Stop 07/09/18 at 08:59 Comment Review of Relevant I have reviewed the following items medardo (where applicable) has been applied. ROSHNI BASHIR MD July 08, 2018 15:12
[2018-07-08] MEDS: MORPHINE SULFATE 2 MG/ML VIAL. IV PRN ×3 (15:37→22:27)
[2018-07-08 19:00] VITALS: BP 176/106
[2018-07-08] MEDS: OLANZapine 5 MG TABLET PO SCH (21:05)
[2018-07-08] MEDS: DIVALPROEX EXTENDED RELEASE 500 MG TAB.ER.24H. PO SCH (21:05)
[2018-07-08] MEDS: METOPROLOL TART IMMED RELEASE 25 MG TABLET. PO SCH (21:07)
[2018-07-08 23:00] VITALS: BP 158/99
[2018-07-09] MEDS: CIPROFLOXACIN 0.3% OPHTH SOLUTION 5ML BOTTLE. OU SCH ×24 (00:15→23:15)
[2018-07-09] MEDS: MORPHINE SULFATE 2 MG/ML VIAL. IV PRN ×6 (01:20→23:40)
[2018-07-09 03:00] VITALS: BP 166/97
[2018-07-09] MEDS: HYDROCORTISONE SOD SUCC/PF 100 MG/2 ML VIAL. IV SCH ×3 (06:09→22:55)
[2018-07-09] MEDS: FOSPHENYTOIN 100 MG/2 ML VIAL. IV SCH ×3 (06:09→22:56)
[2018-07-09 06:12] LABS: BASO % 0 % (0-3); EOS # 0.1 x10^3/uL (0.0-0.7); EOS % 1 % (0-3); HEMATOCRIT 30.8 % (39.0-53.0); HEMOGLOBIN 10.2 g/dL (13.0-17.5); LYMPH # 1.3 x10^3/uL (1.0-4.8); LYMPH % 10 % (24-48); MEAN CORPUSCULAR HEMOGLOBIN 31 pg (25-35); MEAN CORPUSCULAR HGB CONC 33 g/dL (31-37); MEAN CORPUSCULAR VOLUME 93 fL (79-100); MONO # 0.9 x10^3/uL (0.0-1.1); MONO % 8 % (0-9); NEUT # 9.9 x10^3uL (1.8-7.7); NEUT % 81 % (31-73); PLATELET COUNT 280 x10^3/uL (140-400); RED BLOOD COUNT 3.33 x10^6/uL (4.30-5.70); RED CELL DISTRIBUTION WIDTH 16.9 % (11.5-14.5); WHITE BLOOD COUNT 12.2 x10^3/uL (4.0-11.0)
[2018-07-09] MEDS: HEPARIN for SUB-Q USE 5,000 UNIT/ML VIAL. SQ SCH ×3 (06:17→23:05)
[2018-07-09 06:27] LABS: ALBUMIN 1.8 g/dL (3.4-5.0); CALCIUM 7.6 mg/dL (8.5-10.1); CREATININE 6.6 mg/dL (0.7-1.3); GFR 9.2; PHOSPHORUS 3.3 mg/dL (2.6-4.7); POTASSIUM 4.7 mmol/L (3.5-5.1)
[2018-07-09 07:00] VITALS: BP 167/113
[2018-07-09] MEDS: LANSOPRAZOLE 30 MG TAB.RAP.DR NG SCH (07:17)
--- NOTE | 2018-07-09 08:22 | PDOC ---
PROGRESS NOTES Chief Complaint Chief Complaint A/P: Posterior reversible encephalopathy syndrome - on admission Hypertensive emergency - resolved Seizure disorder and loss of airway requiring ICU stay and intubation during his admission on 06/30/18 - extubation 07/03/18 - cont seizure meds Vision loss with corneal cloudiness (central + peripheral etiologies ?) recent onset, this was documented on admission by neurology on 06/29/18 and not again until 07/05/18, started on Tobramycin, ophthalmology consultation has been requested but not available at our institution, verbal recommendation from local autocad designer greatly appreciated. Most likely infection associated to the use of contact lenses as they had been retrieved from the patients eyes on his 2 and 3rd hospital day but today he was rubbing his left eye and an old contact lens came out. Curiously is the eye where he has the better vision, he can count fingers with that eye and only sees light reflection on the left. - Denied transfer to [facility], recommended outpatient f/u after discharge. continue cipro ophthalmic - efforts are being made to transfer to institution where ophthalmology services can evaluate his recent vision loss. institutions in the area at capacity and unable to accept in transfer, will try again daily. Metabolic encephalopathy - Resolved Petechial cerebral hemorrhage. 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 Was ESRD on 06/22, discharged on 06/27, readmitted on 06/29. Hep B immune status confirmed. He needs a dialysis chair. Clearly he had medicaid and medicare applications completed on prior visit 06/22/2018, was refused by [facility] for chair time 03/25 lack of payor source, apparently UTI? - negative culture Pleural effusion. Anemia. Hypocalcemia. Schizophrenia. Bipolar disorder. 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 He underwent renal biopsy positive for anti- glomerular membrane antibody disease (Good[place]ure's), was placed on dialysis and left the hospital to be with his girlfriend after admission 06/22-06/27, returned on 06/29/2018 because he was unable to complete dialysis, did not have a chair, ap parently had insurance pending. The patient complained of some blurred vision initially on admission, generalized weakness, especially in the legs. Stat CT of the head was obtained. CT angiogram was also reviewed. The patient's initial head CT revealed some new findings of hypodensity throughout the bilateral posterior cerebral hemisphere compatible with acute or subacute infarct. There was also some evidence of posterior reversible encephalopathy syndrome which was confirmed on MRI. There was no confirmed hemorrhage seen. The patient was treated for the above. He started having seizures, loaded on fosphenytoin and keppra and was intubated with CXR confirming bilateral pulmonary edema, had red frothy sputum, though no confirmed pulmonary hemorrhage. Seen by pulm. He was then extubated 07/03/18, has been recovering from PRES since. His girlfriend has been bedside frequently. Patient stable compared to yesterday clinically and but still unable to see. Eyes with bilateral scleral edema/erythema and anterior chamber cloudiness, worse today. He is able to count my fingers with his left eye but not his right eye. Contact lenses confirmed removed from both eyes, irrigated with saline. No acute events reported overnight. Has been constipated, wishes for a bowel regimen, last BM was 4 days ago Concerns have been addressed to the best of my abilities. I discussed with neurology who agrees his vision loss needs to be addressed urgently, and I have called [facility], spoke with Dr. Araujo and Cad Detailer over the phone. Ophtho will be happy to evaluate patient IGGY, however, they do not have beds currently and request we call back in the morning and have case management fax over his medicaid pending number as well. Vitals Vitals Vital Signs Date Time Temp Pulse Resp B/P (MAP) Pulse Ox O2 Delivery O2 Flow Rate FiO2 07/09/18 06:04 20 Room Air 07/09/18 03:00 99.4 92 166/97 (120) 92 99.4 Physical Exam General: Alert, Oriented X3, Cooperative, No acute distress Heart: Regular rate Lungs: Clear Abdomen: Normal bowel sounds Extremities: No clubbing, No cyanosis, No edema, Normal pulses, No tenderness/swelling Skin: No rashes, Other Labs LABS Laboratory Tests Test 07/08/18 17:18 07/09/18 05:40 Glucose (Fingerstick) 144 mg/dL (70-99) White Blood Count 12.2 x10^3/uL (4.0-11.0) Red Blood Count 3.33 x10^6/uL (4.30-5.70) Hemoglobin 10.2 g/dL (13.0-17.5) Hematocrit 30.8 % (39.0-53.0) Mean Corpuscular Volume 93 fL (79-100) Mean Corpuscular Hemoglobin 31 pg (25-35) Mean Corpuscular Hemoglobin Concent 33 g/dL (31-37) Red Cell Distribution Width 16.9 % (11.5-14.5) Platelet Count 280 x10^3/uL (140-400) Neutrophils (%) (Auto) 81 % (31-73) Lymphocytes (%) (Auto) 10 % (24-48) Monocytes (%) (Auto) 8 % (0-9) Eosinophils (%) (Auto) 1 % (0-3) Basophils (%) (Auto) 0 % (0-3) Neutrophils # (Auto) 9.9 x10^3uL (1.8-7.7) Lymphocytes # (Auto) 1.3 x10^3/uL (1.0-4.8) Monocytes # (Auto) 0.9 x10^3/uL (0.0-1.1) Eosinophils # (Auto) 0.1 x10^3/uL (0.0-0.7) Basophils # (Auto) 0.0 x10^3/uL (0.0-0.2) Sodium Level 138 mmol/L (136-145) Potassium Level 4.7 mmol/L (3.5-5.1) Chloride Level 101 mmol/L (98-107) Carbon Dioxide Level 29 mmol/L (21-32) Anion Gap 8 (6-14) Blood Urea Nitrogen 65 mg/dL (8-26) Creatinine 6.6 mg/dL (0.7-1.3) Estimated GFR (Cockcroft-Gault) 9.2 Glucose Level 105 mg/dL (70-99) Calcium Level 7.6 mg/dL (8.5-10.1) Phosphorus Level 3.3 mg/dL (2.6-4.7) Albumin 1.8 g/dL (3.4-5.0) Assessment and Plan Assessmemt and Plan Problems Medical Problems: (1) Hypertension Status: Acute Comment Review of Relevant I have reviewed the following items medardo (where applicable) has been applied. Labs Laboratory Tests Test 07/08/18 06:00 07/08/18 17:18 07/09/18 05:40 White Blood Count 10.8 x10^3/uL (4.0-11.0) 12.2 x10^3/uL (4.0-11.0) Red Blood Count 3.41 x10^6/uL (4.30-5.70) 3.33 x10^6/uL (4.30-5.70) Hemoglobin 10.8 g/dL (13.0-17.5) 10.2 g/dL (13.0-17.5) Hematocrit 31.2 % (39.0-53.0) 30.8 % (39.0-53.0) Mean Corpuscular Volume 92 fL (79-100) 93 fL (79-100) Mean Corpuscular Hemoglobin 32 pg (25-35) 31 pg (25-35) Mean Corpuscular Hemoglobin Concent 35 g/dL (31-37) 33 g/dL (31-37) Red Cell Distribution Width 16.9 % (11.5-14.5) 16.9 % (11.5-14.5) Platelet Count 273 x10^3/uL (140-400) 280 x10^3/uL (140-400) Neutrophils (%) (Auto) 82 % (31-73) 81 % (31-73) Lymphocytes (%) (Auto) 10 % (24-48) 10 % (24-48) Monocytes (%) (Auto) 7 % (0-9) 8 % (0-9) Eosinophils (%) (Auto) 0 % (0-3) 1 % (0-3) Basophils (%) (Auto) 0 % (0-3) 0 % (0-3) Neutrophils # (Auto) 8.9 x10^3uL (1.8-7.7) 9.9 x10^3uL (1.8-7.7) Lymphocytes # (Auto) 1.1 x10^3/uL (1.0-4.8) 1.3 x10^3/uL (1.0-4.8) Monocytes # (Auto) 0.7 x10^3/uL (0.0-1.1) 0.9 x10^3/uL (0.0-1.1) Eosinophils # (Auto) 0.0 x10^3/uL (0.0-0.7) 0.1 x10^3/uL (0.0-0.7) Basophils # (Auto) 0.0 x10^3/uL (0.0-0.2) 0.0 x10^3/uL (0.0-0.2) Sodium Level 137 mmol/L (136-145) 138 mmol/L (136-145) Potassium Level 4.3 mmol/L (3.5-5.1) 4.7 mmol/L (3.5-5.1) Chloride Level 99 mmol/L (98-107) 101 mmol/L (98-107) Carbon Dioxide Level 27 mmol/L (21-32) 29 mmol/L (21-32) Anion Gap 11 (6-14) 8 (6-14) Blood Urea Nitrogen 74 mg/dL (8-26) 65 mg/dL (8-26) Creatinine 7.7 mg/dL (0.7-1.3) 6.6 mg/dL (0.7-1.3) Estimated GFR (Cockcroft-Gault) 7.7 9.2 Glucose Level 99 mg/dL (70-99) 105 mg/dL (70-99) Calcium Level 7.4 mg/dL (8.5-10.1) 7.6 mg/dL (8.5-10.1) Phosphorus Level 4.6 mg/dL (2.6-4.7) 3.3 mg/dL (2.6-4.7) Albumin 1.7 g/dL (3.4-5.0) 1.8 g/dL (3.4-5.0) Glucose (Fingerstick) 144 mg/dL (70-99) Laboratory Tests Test 07/08/18 17:18 07/09/18 05:40 Glucose (Fingerstick) 144 mg/dL (70-99) White Blood Count 12.2 x10^3/uL (4.0-11.0) Red Blood Count 3.33 x10^6/uL (4.30-5.70) Hemoglobin 10.2 g/dL (13.0-17.5) Hematocrit 30.8 % (39.0-53.0) Mean Corpuscular Volume 93 fL (79-100) Mean Corpuscular Hemoglobin 31 pg (25-35) Mean Corpuscular Hemoglobin Concent 33 g/dL (31-37) Red Cell Distribution Width 16.9 % (11.5-14.5) Platelet Count 280 x10^3/uL (140-400) Neutrophils (%) (Auto) 81 % (31-73) Lymphocytes (%) (Auto) 10 % (24-48) Monocytes (%) (Auto) 8 % (0-9) Eosinophils (%) (Auto) 1 % (0-3) Basophils (%) (Auto) 0 % (0-3) Neutrophils # (Auto) 9.9 x10^3uL (1.8-7.7) Lymphocytes # (Auto) 1.3 x10^3/uL (1.0-4.8) Monocytes # (Auto) 0.9 x10^3/uL (0.0-1.1) Eosinophils # (Auto) 0.1 x10^3/uL (0.0-0.7) Basophils # (Auto) 0.0 x10^3/uL (0.0-0.2) Sodium Level 138 mmol/L (136-145) Potassium Level 4.7 mmol/L (3.5-5.1) Chloride Level 101 mmol/L (98-107) Carbon Dioxide Level 29 mmol/L (21-32) Anion Gap 8 (6-14) Blood Urea Nitrogen 65 mg/dL (8-26) Creatinine 6.6 mg/dL (0.7-1.3) Estimated GFR (Cockcroft-Gault) 9.2 Glucose Level 105 mg/dL (70-99) Calcium Level 7.6 mg/dL (8.5-10.1) Phosphorus Level 3.3 mg/dL (2.6-4.7) Albumin 1.8 g/dL (3.4-5.0) Microbiology 06/30/18 Urine Culture - Final, Complete 06/30/18 Urine Culture Result 1 (LINH) - Final, Complete Medications Current Medications Morphine Sulfate (Morphine Sulfate) 4 mg 1X ONCE IV Last administered on 06/29/18 11:40; Start 06/29/18 at 11:30; Stop 06/29/18 at 11:31; Status DC Ondansetron HCl (Zofran) 4 mg 1X ONCE IV Last administered on 06/29/18 11:44; Start 06/29/18 at 11:45; Stop 06/29/18 at 11:46; Status DC Ondansetron HCl (Zofran) 4 mg STK-MED ONCE .ROUTE ; Start 06/29/18 at 11:43; Stop 06/29/18 at 11:44; Status DC Ondansetron HCl (Zofran) 4 mg PRN Q8HRS PRN IV NAUSEA/VOMITING; Start 06/29/18 at 12:15; Stop 06/30/18 at 12:14; Status DC Morphine Sulfate (Morphine Sulfate) 4 mg 1X ONCE IV Last administered on 06/29/18 13:25; Start 06/29/18 at 13:30; Stop 06/29/18 at 13:31; Status DC Clonidine HCl (Catapres) 0.1 mg BID PO Last administered on 07/08/18 21:06; Start 06/29/18 at 21:00 Cyanocobalamin (Vitamin B-12) 1,000 mcg DAILY PO Last administered on 07/08/18 13:31; Start 06/29/18 at 16:30 Sevelamer Carbonate (Renvela) 800 mg TIDWMEALS PO Last administered on 07/08/18 17:38; Start 06/29/18 at 17:00 Hydrocortisone (Cortef) 20 mg DAILYWBKFT PO Last administered on 07/02/18at 08:55; Start 06/29/18 at 16:30; Stop 07/02/18 at 09:53; Status DC Multivitamins (Thera M Plus) 1 tab DAILY PO Last administered on 07/08/18 13:23; Start 06/29/18 at 16:30 Olanzapine (ZyPREXA) 20 mg QHS PO Last administered on 07/04/18at 19:50; Start 06/29/18 at 21:00; Stop 07/05/18 at 13:49; Status DC Pantoprazole Sodium (Protonix) 40 mg DAILYAC PO Last administered on 06/29/18 18:31; Start 06/29/18 at 16:30; Stop 07/01/18 at 07:33; Status DC Heparin Sodium (Porcine) (Heparin Sodium) 5,000 unit Q8HRS SQ Last administered on 07/09/18 06:17; Start 06/29/18 at 22:00 Acetaminophen (Tylenol) 650 mg 1X ONCE PO Last administered on 06/29/18at 18:32; Start 06/29/18 at 16:30; Stop 06/29/18 at 16:31; Status DC Oxycodone/ Acetaminophen (Percocet 5/325) 1 tab PRN Q4HRS PRN PO PAIN Last administered on 07/08/18 18:32; Start 06/29/18 at 20:00 Iohexol (Omnipaque 350 Mg/ml) 75 ml 1X ONCE IV Last administered on 06/29/18 21:01; Start 06/29/18 at 21:00; Stop 06/29/18 at 21:03; Status DC Labetalol HCl (Normodyne Iv Push) 10 mg PRN Q10MIN PRN IVP HYPERTENSION, SEE COMMENTS Last administered on 07/07/18at 10:01; Start 06/29/18 at 21:15; Status Future Hold Acetaminophen (Tylenol) 650 mg PRN Q6HRS PRN PO TEMP > 100.4F; Start 06/29/18 at 21:15 Acetaminophen (Tylenol Supp) 650 mg PRN Q4HRS PRN [place] TEMP > 100.4F; Start 06/29/18 at 21:15 Aspirin (Ecotrin) 325 mg DAILYWBKFT PO Last administered on 07/08/18at 13:34; Start 06/30/18 at 08:00 Aspirin (Aspirin Rectal Supp) 300 mg PRN DAILY PRN IL IF UNABLE TO TAKE PO; Start 06/29/18 at 21:15 Morphine Sulfate (Morphine Sulfate) 2 mg PRN Q2HR PRN IV SEVERE PAIN 7-10 Last administered on 07/09/18at 05:34; Start 06/29/18 at 22:30 Levetiracetam 500 mg/Dextrose 105 ml @ 420 mls/hr Q12HR IV Last administered on 07/08/18at 21:04; Start 06/30/18 at 00:00 Levetiracetam 1000 mg/Dextrose 110 ml @ 440 mls/hr 1X ONCE IV Last administered on 06/30/18at 02:25; Start 06/30/18 at 02:30; Stop 06/30/18 at 02:44; Status DC Lorazepam (Ativan) 1 mg PRN Q2HRS PRN IV TREMORS; Start 06/30/18 at 02:00 Fosphenytoin Sodium 1390 mg/ Sodium Chloride 77.8 ml @ 311.2 mls/ hr 1X ONCE IV Last administered on 06/30/18at 04:44; Start 06/30/18 at 05:00; Stop 06/30/18 at 05:14; Status DC Propofol 100 ml @ As Directed STK-MED ONCE IV ; Start 06/30/18 at 05:58; Stop 06/30/18 at 05:59; Status DC Succinylcholine Chloride (Anectine) 200 mg STK-MED ONCE .ROUTE ; Start 06/30/18 at 05:59; Stop 06/30/18 at 06:00; Status DC Propofol 100 ml @ 1.39 mls/hr 1X ONCE IV Last administered on 06/30/18at 06:30; Start 06/30/18 at 06:30; Stop 07/01/18 at 17:31; Status DC Succinylcholine Chloride (Anectine) 200 mg 1X ONCE IV Last administered on 06/30/18at 06:21; Start 06/30/18 at 06:30; Stop 06/30/18 at 06:31; Status DC Propofol 100 ml @ 0 mls/hr CONT PRN IV SEE I/O RECORD Last administered on 07/03/18at 02:50; Start 06/30/18 at 06:30; Stop 07/05/18 at 15:46; Status DC Fentanyl Citrate 30 ml @ 0 mls/hr CONT PRN IV SEE PROTOCOL; Start 06/30/18 at 06:30; Stop 07/03/18 at 17:50; Status DC Midazolam HCl 100 ml @ 0 mls/hr CONT PRN IV SEE PROTOCOL; Start 06/30/18 at 06:30; Stop 07/03/18 at 17:50; Status DC Fosphenytoin Sodium (Cerebyx) 100 mg Q8HRS IV Last administered on 07/09/18at 06:09; Start 06/30/18 at 14:00 Hydrocortisone Sodium Succinate (Solu-CORTEF) 100 mg Q8HRS IV Last administered on 07/09/18at 06:09; Start 06/30/18 at 14:00 Lansoprazole (Prevacid) 30 mg DAILYAC NG Last administered on 07/09/18at 07:17; Start 07/01/18 at 07:30 Sodium Chloride 1,000 ml @ 1,000 mls/hr Q1H PRN IV hypotension; Start 07/01/18 at 08:00; Stop 07/01/18 at 18:00; Status DC Albumin Human 200 ml @ 200 mls/hr 1X PRN PRN IV Hypotension; Start 07/01/18 at 08:00; Stop 07/01/18 at 18:00; Status DC Acetaminophen (Tylenol) 500 mg 1X PRN PRN PO MILD PAIN / TEMP; Start 07/01/18 at 07:45; Stop 07/01/18 at 18:00; Status DC Diphenhydramine HCl (Benadryl) 25 mg 1X PRN PRN IV ITCHING; Start 07/01/18 at 07:45; Stop 07/01/18 at 18:00; Status DC Diphenhydramine HCl (Benadryl) 25 mg 1X PRN PRN IV ITCHING; Start 07/01/18 at 07:45; Stop 07/01/18 at 18:00; Status DC Sodium Chloride (Normal Saline Flush) 10 ml 1X PRN PRN IV AP catheter pack; Start 07/01/18 at 07:45; Stop 07/01/18 at 18:00; Status DC Sodium Chloride (Normal Saline Flush) 10 ml 1X PRN PRN IV CUSTOM MILLER catheter pack; Start 07/01/18 at 07:45; Stop 07/01/18 at 18:00; Status DC Sodium Chloride 1,000 ml @ 400 mls/hr Q2H30M PRN IV PATENCY; Start 07/01/18 at 08:00; Stop 07/01/18 at 18:00; Status DC Info (PHARMACY MONITORING -- do not chart) 1 each PRN DAILY PRN MC SEE COMMENTS; Start 07/01/18 at 08:00; Stop 07/04/18 at 07:54; Status DC Gentamicin Sulfate (Gentak) 0.25 inch [id number] OU ; Start 07/02/18 at 23:00; Stat us Cancel Tobramycin Sulfate (Tobrex Ophth Soln) 2 drop Q4HRS OU Last administered on 07/05/18at 08:53; Start 07/03/18 at 00:00; Stop 07/05/18 at 13:05; Status DC Multi-Ingred Cream/Lotion/Oil/ Oint (Artificial Tears Eye Ointment) 1 juliette PRN Q1HR PRN OU DRY EYE; Start 07/03/18 at 18:45 Sodium Chloride 1,000 ml @ 1,000 mls/hr Q1H PRN IV hypotension; Start 07/04/18 at 07:47; Stop 07/04/18 at 13:46; Status DC Albumin Human 200 ml @ 200 mls/hr 1X PRN PRN IV Hypotension; Start 07/04/18 at 08:00; Stop 07/04/18 at 13:59; Status DC Acetaminophen (Tylenol) 500 mg 1X PRN PRN PO MILD PAIN / TEMP; Start 07/04/18 at 08:00; Stop 07/05/18 at 07:59; Status DC Diphenhydramine HCl (Benadryl) 25 mg 1X PRN PRN IV ITCHING; Start 07/04/18 at 08:00; Stop 07/05/18 at 07:59; Status DC Diphenhydramine HCl (Benadryl) 25 mg 1X PRN PRN IV ITCHING; Start 07/04/18 at 08:00; Stop 07/05/18 at 07:59; Status DC Sodium Chloride (Normal Saline Flush) 10 ml 1X PRN PRN IV AP catheter pack; Start 07/04/18 at 08:00; Stop 07/05/18 at 07:59; Status DC Sodium Chloride (Normal Saline Flush) 10 ml 1X PRN PRN IV CUSTOM MILLER catheter pack; Start 07/04/18 at 08:00; Stop 07/05/18 at 07:59; Status DC Sodium Chloride 1,000 ml @ 400 mls/hr Q2H30M PRN IV PATENCY; Start 07/04/18 at 07:47; Stop 07/04/18 at 19:46; Status DC Info (PHARMACY MONITORING -- do not chart) 1 each PRN DAILY PRN MC SEE COMMENTS; Start 07/04/18 at 08:00 Ciprofloxacin (Ciloxan Ophth) 2 drop Q1H OU Last administered on 07/09/18at 07:16; Start 07/05/18 at 13:15 Benztropine Mesylate (Cogentin) 1 mg PRN BID PRN PO EXTRAPYRAMIDAL EFFECTS; Start 07/05/18 at 13:45 Hydroxyzine Pamoate (Vistaril) 50 mg TID PO Last administered on 07/08/18at 21:06; Start 07/05/18 at 14:00 Olanzapine (ZyPREXA) 30 mg QHS PO Last administered on 07/08/18at 21:05; Start 07/05/18 at 21:00 Divalproex Sodium (Depakote Er) 1,500 mg QHS PO Last administered on 07/08/18at 21:05; Start 07/05/18 at 21:00 Sodium Chloride 1,000 ml @ 1,000 mls/hr Q1H PRN IV hypotension; Start 07/06/18 at 06:30; Stop 07/06/18 at 06:35; Status DC Diphenhydramine HCl (Benadryl) 25 mg 1X PRN PRN IV ITCHING; Start 07/06/18 at 06:30; Stop 07/07/18 at 06:29; Status DC Diphenhydramine HCl (Benadryl) 25 mg 1X PRN PRN IV ITCHING; Start 07/06/18 at 06:30; Stop 07/07/18 at 06:29; Status DC Sodium Chloride 1,000 ml @ 400 mls/hr Q2H30M PRN IV PATENCY; Start 07/06/18 at 06:30; Stop 07/06/18 at 06:35; Status DC Info (PHARMACY MONITORING -- do not chart) 1 each PRN DAILY PRN MC SEE COMMENTS; Start 07/06/18 at 06:30 Metoprolol Tartrate (Lopressor) 25 mg BID PO Last administered on 07/08/18at 21:07; Start 07/08/18 at 21:00 Metoprolol Tartrate (Lopressor) 25 mg ONCE ONCE PO Last administered on 07/08/18at 06:39; Start 07/08/18 at 06:45; Stop 07/08/18 at 06:46; Status DC Sodium Chloride 1,000 ml @ 1,000 mls/hr Q1H PRN IV hypotension; Start 07/08/18 at 08:53; Stop 07/08/18 at 14:52; Status DC Albumin Human 200 ml @ 200 mls/hr 1X PRN PRN IV Hypotension; Start 07/08/18 at 09:00; Stop 07/08/18 at 14:59; Status DC Sodium Chloride (Normal Saline Flush) 10 ml 1X PRN PRN IV AP catheter pack; Start 07/08/18 at 09:00; Stop 07/09/18 at 08:59 Sodium Chloride (Normal Saline Flush) 10 ml 1X PRN PRN IV CUSTOM MILLER catheter pack; Start 07/08/18 at 09:00; Stop 07/09/18 at 08:59 Sodium Chloride 1,000 ml @ 400 mls/hr Q2H30M PRN IV PATENCY; Start 07/08/18 at 08:53; Stop 07/08/18 at 20:52; Status DC Info (PHARMACY MONITORING -- do not chart) 1 each PRN DAILY PRN MC SEE COMMENTS; Start 07/08/18 at 09:00; Status UNV Info (PHARMACY MONITORING -- do not chart) 1 each PRN DAILY PRN MC SEE COMMENTS; Start 07/08/18 at 09:00; Status UNV Active Scripts Active Clonidine Hcl 0.1 Mg Tablet 0.1 Mg PO BID [Pantoprazole] 40 MG Tablet.dr 40 Mg PO DAILYAC MDD 1 Renvela (Sevelamer Carbonate) 800 Mg Tablet 800 Mg PO TIDWMEALS MDD 1 Reported Depakote (Divalproex Sodium) 500 Mg Tablet.dr 1,500 Mg PO HS Hydroxyzine Hcl 50 Mg Tablet 50 Mg PO TID Olanzapine 10 Mg Tablet 30 Mg PO HS Ibuprofen 400 Mg Tablet 400 Mg PO PRN Q6HRS PRN Benztropine Mesylate 1 Mg Tablet 1 Tab PO BID PRN Haloperidol 10 Mg Tablet 20 Mg PO HS Multivitamins (Multivitamin) 1 Each Tablet 1 Tab PO DAILY Vitamin B-12 (Cyanocobalamin (Vitamin B-12)) 1,000 Mcg Tablet 1 Tab PO DAILY Cortef (Hydrocortisone) 20 Mg Tablet 20 Mg PO DAILY Vitals/I & O Vital Sign - Last 24 Hours 07/08/18 07/08/18 07/08/18 07/08/18 13:31 15:00 15:37 18:32 Temp 98.2 98.2 Pulse 85 Resp 20 18 20 B/P (MAP) 151/96 (114) Pulse Ox 93 O2 Delivery Room Air Room Air Room Air Room Air 07/08/18 07/08/18 07/08/18 07/08/18 19:00 19:32 19:35 20:24 Temp 98.4 98.4 Pulse 98 Resp 18 20 20 B/P (MAP) 176/106 (129) Pulse Ox 96 O2 Delivery Room Air Room Air Room Air Room Air 07/08/18 07/08/18 07/08/18 07/08/18 21:06 21:07 22:27 23:00 Temp 99.2 99.2 Pulse 104 104 88 Resp 20 18 B/P (MAP) 159/102 159/102 158/99 (118) Pulse Ox 91 O2 Delivery Room Air Room Air 07/09/18 07/09/18 07/09/18 07/09/18 01:20 03:00 05:34 06:04 Temp 99.4 99.4 Pulse 92 Resp 20 18 20 20 B/P (MAP) 166/97 (120) Pulse Ox 92 O2 Delivery Room Air Room Air Room Air Room Air Intake and Output 07/08/18 07/08/18 07/09/18 15:00 23:00 07:00 Intake Total 120 ml Output Total 200 ml 0 ml Balance -80 ml 0 ml ROX SCHILLING MD July 09, 2018 08:22
[2018-07-09] MEDS: CYANOCOBALAMIN (VITAMIN B-12) 1,000 MCG TABLET. PO SCH (08:31)
[2018-07-09] MEDS: cloNIDine HCL 0.1 MG TABLET PO SCH ×2 (08:31→21:19)
[2018-07-09] MEDS: ASPIRIN ENTERIC COATED 325 MG TABLET.DR. PO SCH (08:31)
[2018-07-09] MEDS: METOPROLOL TART IMMED RELEASE 25 MG TABLET. PO SCH ×2 (08:32→21:19)
[2018-07-09] MEDS: MULTIVITAMIN with MINERAL TABLET. PO SCH (08:32)
[2018-07-09] MEDS: SEVELAMER CARBONATE 800 MG TABLET. PO SCH ×3 (08:32→17:31)
[2018-07-09] MEDS: oxyCODONE/APAP 5/325 1 TAB TABLET PO PRN ×4 (08:32→23:03)
[2018-07-09] MEDS: hydrOXYzine PAMOATE 25 MG CAPSULE PO SCH ×3 (08:33→21:19)
[2018-07-09] MEDS: levETIRAcetam 500 MG in IV DEXTROSE 5% 100ML 100 ML IV SCH ×2 (08:33→21:20)
[2018-07-09 11:00] VITALS: BP 165/107
[2018-07-09] MEDS ORDERED: POLYETHYLENE GLYCOL 3350 17 GM PACKET. PO PRN (12:30)
[2018-07-09 15:00] VITALS: BP 148/101
--- NOTE | 2018-07-09 15:18 | RAD ---
CT HEAD INDICATION: Headache COMPARISON: 06/29/2018 Exposure: One or more of the following individualized dose reduction techniques were utilized for this examination: 1. Automated exposure control 2. Adjustment of the mA and/or kV according to patient size 3. Use of iterative reconstruction technique TECHNIQUE: 5 mm contiguous axial images were obtained from the skull base to the vertex in both bone and soft tissue algorithm. FINDINGS: Hypodensity identified in the white matter of the bilateral posterior cerebral hemispheres likely recent posterior reversible encephalopathy syndrome decreased since prior exam. No evidence of acute intracranial hemorrhage. No extra-axial fluid collections. No mass effect or midline shift. Ventricular size is appropriate. Basal cisterns are patent. No fractures identified.Conrad-white differentiation is preserved.Globes and orbits are within normal limits. Paranasal sinuses and mastoid air cells are clear. IMPRESSION: Interval mild decrease in hypodensity identified in the bilateral posterior cerebral hemispheres likely improve posterior reversible encephalopathy syndrome. Correlate clinically. Electronically signed by: Dante Aden MD (07/09/2018 3:15 PM) [facility]
--- NOTE | 2018-07-09 16:40 | PDOC ---
PROGRESS NOTES Assessment Assessment PRES. Vision loss with corneal cloudiness, infection (peripheral etiologies) Hypertensive emergency, BP 212/133 mmHg. Seizure. Headache. Metabolic encephalopathy. Vision loss. Petechial cerebral hemorrhage. Renal failure. UTI? Pleural effusion. Anemia. Hypocalcemia. Schizophrenia. Bipolar disorder. Arron disease. RECOMMENDATIONS/PLAN: ASA 325 mg daily. Continue ophthalmological treatment, antibiotic eye drops. Continue Keppra 500 mg bid. BP control. HCT w/o contrast on 07/09. Treat medical diseases. Continue dialysis. Transfer to other medical facility with in house ophthalmology services. Tried transfer multiple times but has no hospital accept transfer so far. OT/PT. Past Medical History GI: Hemorrhoids, Other (diarrhea) Heme/Onc: Cancer (thyroid (Para?)) Psych: Anxiety, Depression, Schizophrenia Renal/: Acute renal failure Endocrine: Other (Arron's disease) Past Surgical History Cholecystectomy, Other (cervical fusion, left knee, parathyroidectomy) Family History Hypertension Social History He is homeless, he denied earlier having use of alcohol, tobacco, or street drugs. ROS Negative for fever, chills, weight loss, shortness of breath, chest pain, indigestion, hematochezia, melena, and dysuria. Full 14-point review of systems is negative. ALLERGY: NKDA MEDICATIONS: Refer to MAR PHYSICAL EXAMINATION: General appearance in subacute distress. HEENT: Normocephalic and nontraumatic. Eyes, nose, ears, and throat are unremarkable. Neck is supple. No lymphadenopathy. No Crepitus. Cardiovascular: S1, S2, regular rate and rhythm. Pulmonary: Decreased to auscultation bilaterally. Abdomen: Bowel sounds are positive. Extremities: No rash, lesions, or edema. No restriction of range of motion NEUROLOGICAL EXAMINATION: Awake. Sitting in chair. Partially oriented to time, but knew place and his familiar person. PERRL. EOMI. Corneal cloudiness. Sclera redness and congestion. Only has light perception and sight for close finger movements and count. CN: no focal findings. Muscle tone: within normal. Muscle strength: 4+. DTR: 1-2 Plantar reflex: Neutral response bilaterally Gait: Not able to walk. Sensory exam: Withdraw response noted. Not able to access cerebellar signs this time. F-T-N test not performed due to not able to follow commands. Objective Objective Vital Signs Date Time Temp Pulse Resp B/P (MAP) Pulse Ox O2 Delivery O2 Flow Rate FiO2 07/09/18 16:14 20 Room Air 07/09/18 15:00 98.5 88 148/101 (117) 100 98.5 Intake and Output 07/09/18 06:59 Intake Total 120 ml Output Total 200 ml Balance -80 ml Intake Oral 120 ml Output Urine Total 200 ml Vitals Signs Vitals VS - Last 72 Hours, by Label Date Time Temp Pulse Resp B/P (MAP) Pulse Ox O2 Delivery O2 Flow Rate FiO2 07/09/18 16:14 20 Room Air 07/09/18 15:00 98.5 88 16 148/101 (117) 100 Room Air 98.5 07/09/18 14:27 20 Room Air 07/09/18 13:48 Room Air 07/09/18 12:48 20 Room Air 07/09/18 11:48 20 Room Air 07/09/18 11:00 97.9 85 16 165/107 (126) 96 Room Air 97.9 07/09/18 08:32 92 166/97 07/09/18 08:32 20 Room Air 07/09/18 08:31 92 166/97 07/09/18 07:00 98.1 88 16 167/113 (131) 90 Room Air 98.1 07/09/18 05:34 20 Room Air 07/09/18 03:00 99.4 92 18 166/97 (120) 92 Room Air 99.4 07/09/18 01:20 20 Room Air 07/08/18 23:00 99.2 88 18 158/99 (118) 91 Room Air 99.2 07/08/18 22:27 20 Room Air 07/08/18 21:07 104 159/102 07/08/18 21:06 104 159/102 07/08/18 20:24 20 Room Air 07/08/18 19:35 Room Air 07/08/18 19:00 98.4 98 18 176/106 (129) 96 Room Air 98.4 07/08/18 18:32 20 Room Air 07/08/18 15:37 Room Air 07/08/18 15:00 98.2 85 18 151/96 (114) 93 Room Air 98.2 07/08/18 13:31 20 Room Air 07/08/18 08:00 Room Air 07/08/18 07:00 98.1 77 16 174/97 (122) 94 Room Air 98.1 Laboratory Laboratory Laboratory Tests Test 07/08/18 17:18 07/09/18 05:40 Glucose (Fingerstick) 144 mg/dL (70-99) White Blood Count 12.2 x10^3/uL (4.0-11.0) Red Blood Count 3.33 x10^6/uL (4.30-5.70) Hemoglobin 10.2 g/dL (13.0-17.5) Hematocrit 30.8 % (39.0-53.0) Mean Corpuscular Volume 93 fL (79-100) Mean Corpuscular Hemoglobin 31 pg (25-35) Mean Corpuscular Hemoglobin Concent 33 g/dL (31-37) Red Cell Distribution Width 16.9 % (11.5-14.5) Platelet Count 280 x10^3/uL (140-400) Neutrophils (%) (Auto) 81 % (31-73) Lymphocytes (%) (Auto) 10 % (24-48) Monocytes (%) (Auto) 8 % (0-9) Eosinophils (%) (Auto) 1 % (0-3) Basophils (%) (Auto) 0 % (0-3) Neutrophils # (Auto) 9.9 x10^3uL (1.8-7.7) Lymphocytes # (Auto) 1.3 x10^3/uL (1.0-4.8) Monocytes # (Auto) 0.9 x10^3/uL (0.0-1.1) Eosinophils # (Auto) 0.1 x10^3/uL (0.0-0.7) Basophils # (Auto) 0.0 x10^3/uL (0.0-0.2) Sodium Level 138 mmol/L (136-145) Potassium Level 4.7 mmol/L (3.5-5.1) Chloride Level 101 mmol/L (98-107) Carbon Dioxide Level 29 mmol/L (21-32) Anion Gap 8 (6-14) Blood Urea Nitrogen 65 mg/dL (8-26) Creatinine 6.6 mg/dL (0.7-1.3) Estimated GFR (Cockcroft-Gault) 9.2 Glucose Level 105 mg/dL (70-99) Calcium Level 7.6 mg/dL (8.5-10.1) Phosphorus Level 3.3 mg/dL (2.6-4.7) Albumin 1.8 g/dL (3.4-5.0) Microbiology 06/30/18 Urine Culture - Final, Complete 06/30/18 Urine Culture Result 1 (LINH) - Final, Complete Medication Medications Current Medications Metoprolol Tartrate (Lopressor) 25 mg BID PO Last administered on 07/09/18at 08:32; Start 07/08/18 at 21:00 Polyethylene Glycol (miraLAX PACKET) 17 gm PRN BID PRN PO CONSTIPATION; Start 07/09/18 at 12:30 Senna/Docusate Sodium (Senna Plus) 2 tab PRN BID PRN PO CONSTIPATION; Start 07/09/18 at 12:30 Comment Review of Relevant I have reviewed the following items medardo (where applicable) has been applied. ROSHNI BASHIR MD July 09, 2018 16:40
[2018-07-09] MEDS: OLANZapine 5 MG TABLET PO SCH (19:22)
[2018-07-09 19:54] VITALS: BP 143/99
[2018-07-09] MEDS: DIVALPROEX EXTENDED RELEASE 500 MG TAB.ER.24H. PO SCH (21:19)
[2018-07-09 23:21] VITALS: BP 148/99
[2018-07-10] MEDS: CIPROFLOXACIN 0.3% OPHTH SOLUTION 5ML BOTTLE. OU SCH ×24 (00:15→23:21)
[2018-07-10 03:45] VITALS: BP 142/94
[2018-07-10] MEDS: HYDROCORTISONE SOD SUCC/PF 100 MG/2 ML VIAL. IV SCH ×3 (05:59→21:45)
[2018-07-10] MEDS: MORPHINE SULFATE 2 MG/ML VIAL. IV PRN (06:01)
[2018-07-10] MEDS: FOSPHENYTOIN 100 MG/2 ML VIAL. IV SCH ×3 (06:06→21:46)
[2018-07-10] MEDS: HEPARIN for SUB-Q USE 5,000 UNIT/ML VIAL. SQ SCH ×3 (06:09→21:55)
[2018-07-10 07:00] VITALS: BP 169/96
[2018-07-10 07:23] LABS: BASO % 0 % (0-3); EOS % 0 % (0-3); HEMATOCRIT 29.6 % (39.0-53.0); HEMOGLOBIN 10.4 g/dL (13.0-17.5); LYMPH # 1.2 x10^3/uL (1.0-4.8); LYMPH % 11 % (24-48); MEAN CORPUSCULAR HEMOGLOBIN 32 pg (25-35); MEAN CORPUSCULAR HGB CONC 35 g/dL (31-37); MEAN CORPUSCULAR VOLUME 91 fL (79-100); MONO # 0.8 x10^3/uL (0.0-1.1); MONO % 7 % (0-9); NEUT # 8.9 x10^3uL (1.8-7.7); NEUT % 81 % (31-73); PLATELET COUNT 283 x10^3/uL (140-400); RED BLOOD COUNT 3.24 x10^6/uL (4.30-5.70); RED CELL DISTRIBUTION WIDTH 16.8 % (11.5-14.5)
[2018-07-10] MEDS: LANSOPRAZOLE 30 MG TAB.RAP.DR NG SCH (07:36)
[2018-07-10] MEDS: SEVELAMER CARBONATE 800 MG TABLET. PO SCH ×3 (07:36→16:41)
[2018-07-10] MEDS: ASPIRIN ENTERIC COATED 325 MG TABLET.DR. PO SCH (07:36)
[2018-07-10] MEDS: CYANOCOBALAMIN (VITAMIN B-12) 1,000 MCG TABLET. PO SCH (07:37)
[2018-07-10] MEDS: MULTIVITAMIN with MINERAL TABLET. PO SCH (07:37)
[2018-07-10] MEDS: SENNOSIDES/DOCUSATE 8.6/50MG TABLET. PO PRN ×2 (07:37→08:41)
[2018-07-10] MEDS: METOPROLOL TART IMMED RELEASE 25 MG TABLET. PO SCH ×2 (07:41→20:38)
[2018-07-10] MEDS: cloNIDine HCL 0.1 MG TABLET PO SCH ×2 (07:42→20:39)
[2018-07-10] MEDS: oxyCODONE/APAP 5/325 1 TAB TABLET PO PRN ×4 (08:41→21:46)
[2018-07-10] MEDS: levETIRAcetam 500 MG in IV DEXTROSE 5% 100ML 100 ML IV SCH ×2 (08:41→20:37)
[2018-07-10] MEDS: hydrOXYzine PAMOATE 25 MG CAPSULE PO SCH ×3 (08:43→20:37)
--- NOTE | 2018-07-10 09:34 | NUR ---
SUE following for discharge planning. Discussed with RN, pt needing inpatient transfer. Apparently Dr. Moody spoke with doctor at [facility] and they want the medicaid application sent before accepting. SUE phoned [facility] (ph: [phone], fax: [phone]) to discuss transfer, the whole process is needing to be started again. SUE faxed pt facesheet and provided Dr. Urbina's phone number for transfer. SUE will continue to follow.
[2018-07-10 11:00] VITALS: BP 159/97
--- NOTE | 2018-07-10 11:10 | PDOC ---
PROGRESS NOTES Chief Complaint Chief Complaint A/P: Posterior reversible encephalopathy syndrome - on admission Hypertensive emergency - resolved Seizure disorder and loss of airway requiring ICU stay and intubation during his admission on 06/30/18 - extubation 07/03/18 - cont seizure meds Vision loss with corneal cloudiness (central + peripheral etiologies ?) recent onset, this was documented on admission by neurology on 06/29/18 and not again until 07/05/18, started on Tobramycin, ophthalmology consultation has been requested but not available at our institution, verbal recommendation from local [facility] greatly appreciated. Most likely infection associated to the use of contact lenses as they had been retrieved from the patients eyes on his 2 and 3rd hospital day but today he was rubbing his left eye and an old contact lens came out. Curiously is the eye where he has the better vision, he can count fingers with that eye and only sees light reflection on the left. - Denied transfer to [facility], recommended outpatient f/u after discharge. continue cipro ophthalmic - efforts are being made to transfer to institution where ophthalmology services can evaluate his recent vision loss. institutions in the area at capacity and unable to accept in transfer, will try again daily. Metabolic encephalopathy - Resolved Petechial cerebral hemorrhage. 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 Was ESRD on 06/22, discharged on 06/27, readmitted on 06/29. Hep B immune status confirmed. He needs a dialysis chair. Clearly he had medicaid and medicare applications completed on prior visit 06/22/2018, was refused by [facility] for chair time 03/25 lack of payor source, apparently UTI? - negative culture Pleural effusion. Anemia. Hypocalcemia. Schizophrenia. Bipolar disorder. 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 He underwent renal biopsy positive for anti- glomerular membrane antibody disease (Good[place]ure's), was placed on dialysis and left the hospital to be with his girlfriend after admission 06/22-06/27, returned on 06/29/2018 because he was unable to complete dialysis, did not have a chair, ap parently had insurance pending. The patient complained of some blurred vision initially on admission, generalized weakness, especially in the legs. Stat CT of the head was obtained. CT angiogram was also reviewed. The patient's initial head CT revealed some new findings of hypodensity throughout the bilateral posterior cerebral hemisphere compatible with acute or subacute infarct. There was also some evidence of posterior reversible encephalopathy syndrome which was confirmed on MRI. There was no confirmed hemorrhage seen. The patient was treated for the above. He started having seizures, loaded on fosphenytoin and keppra and was intubated with CXR confirming bilateral pulmonary edema, had red frothy sputum, though no confirmed pulmonary hemorrhage. Seen by pulm. He was then extubated 07/03/18, has been recovering from PRES since. His girlfriend has been bedside frequently. Patient stable . Eyes with bilateral scleral edema/erythema and anterior chamber cloudiness He is able to count my fingers with his left eye but not his right eye. Contact lenses confirmed removed from both eyes, irrigated with saline. No acute events reported overnight. We discussed with neurology who agrees his vision loss needs to be addressed urgently. spoke with [facility] and [facility] will attempt transfer and if no success will [facility] Vitals Vitals Vital Signs Date Time Temp Pulse Resp B/P (MAP) Pulse Ox O2 Delivery O2 Flow Rate FiO2 07/10/18 09:41 Room Air 07/10/18 07:42 77 169/96 07/10/18 07:00 97.8 18 92 97.8 07/09/18 08:00 3.0 Physical Exam General: Alert, Oriented X3, Cooperative, No acute distress Heart: Regular rate Lungs: Clear Abdomen: Normal bowel sounds Extremities: No clubbing, No cyanosis, No edema, Normal pulses, No tenderness/swelling Skin: No rashes, Other Labs LABS Laboratory Tests Test 07/10/18 05:35 White Blood Count 11.0 x10^3/uL (4.0-11.0) Red Blood Count 3.24 x10^6/uL (4.30-5.70) Hemoglobin 10.4 g/dL (13.0-17.5) Hematocrit 29.6 % (39.0-53.0) Mean Corpuscular Volume 91 fL (79-100) Mean Corpuscular Hemoglobin 32 pg (25-35) Mean Corpuscular Hemoglobin Concent 35 g/dL (31-37) Red Cell Distribution Width 16.8 % (11.5-14.5) Platelet Count 283 x10^3/uL (140-400) Neutrophils (%) (Auto) 81 % (31-73) Lymphocytes (%) (Auto) 11 % (24-48) Monocytes (%) (Auto) 7 % (0-9) Eosinophils (%) (Auto) 0 % (0-3) Basophils (%) (Auto) 0 % (0-3) Neutrophils # (Auto) 8.9 x10^3uL (1.8-7.7) Lymphocytes # (Auto) 1.2 x10^3/uL (1.0-4.8) Monocytes # (Auto) 0.8 x10^3/uL (0.0-1.1) Eosinophils # (Auto) 0.0 x10^3/uL (0.0-0.7) Basophils # (Auto) 0.0 x10^3/uL (0.0-0.2) Assessment and Plan Assessmemt and Plan Problems Medical Problems: (1) Hypertension Status: Acute Comment Review of Relevant I have reviewed the following items medardo (where applicable) has been applied. Labs Laboratory Tests Test 07/08/18 17:18 07/09/18 05:40 07/10/18 05:35 Glucose (Fingerstick) 144 mg/dL (70-99) White Blood Count 12.2 x10^3/uL (4.0-11.0) 11.0 x10^3/uL (4.0-11.0) Red Blood Count 3.33 x10^6/uL (4.30-5.70) 3.24 x10^6/uL (4.30-5.70) Hemoglobin 10.2 g/dL (13.0-17.5) 10.4 g/dL (13.0-17.5) Hematocrit 30.8 % (39.0-53.0) 29.6 % (39.0-53.0) Mean Corpuscular Volume 93 fL (79-100) 91 fL (79-100) Mean Corpuscular Hemoglobin 31 pg (25-35) 32 pg (25-35) Mean Corpuscular Hemoglobin Concent 33 g/dL (31-37) 35 g/dL (31-37) Red Cell Distribution Width 16.9 % (11.5-14.5) 16.8 % (11.5-14.5) Platelet Count 280 x10^3/uL (140-400) 283 x10^3/uL (140-400) Neutrophils (%) (Auto) 81 % (31-73) 81 % (31-73) Lymphocytes (%) (Auto) 10 % (24-48) 11 % (24-48) Monocytes (%) (Auto) 8 % (0-9) 7 % (0-9) Eosinophils (%) (Auto) 1 % (0-3) 0 % (0-3) Basophils (%) (Auto) 0 % (0-3) 0 % (0-3) Neutrophils # (Auto) 9.9 x10^3uL (1.8-7.7) 8.9 x10^3uL (1.8-7.7) Lymphocytes # (Auto) 1.3 x10^3/uL (1.0-4.8) 1.2 x10^3/uL (1.0-4.8) Monocytes # (Auto) 0.9 x10^3/uL (0.0-1.1) 0.8 x10^3/uL (0.0-1.1) Eosinophils # (Auto) 0.1 x10^3/uL (0.0-0.7) 0.0 x10^3/uL (0.0-0.7) Basophils # (Auto) 0.0 x10^3/uL (0.0-0.2) 0.0 x10^3/uL (0.0-0.2) Sodium Level 138 mmol/L (136-145) Potassium Level 4.7 mmol/L (3.5-5.1) Chloride Level 101 mmol/L (98-107) Carbon Dioxide Level 29 mmol/L (21-32) Anion Gap 8 (6-14) Blood Urea Nitrogen 65 mg/dL (8-26) Creatinine 6.6 mg/dL (0.7-1.3) Estimated GFR (Cockcroft-Gault) 9.2 Glucose Level 105 mg/dL (70-99) Calcium Level 7.6 mg/dL (8.5-10.1) Phosphorus Level 3.3 mg/dL (2.6-4.7) Albumin 1.8 g/dL (3.4-5.0) Laboratory Tests Test 07/10/18 05:35 White Blood Count 11.0 x10^3/uL (4.0-11.0) Red Blood Count 3.24 x10^6/uL (4.30-5.70) Hemoglobin 10.4 g/dL (13.0-17.5) Hematocrit 29.6 % (39.0-53.0) Mean Corpuscular Volume 91 fL (79-100) Mean Corpuscular Hemoglobin 32 pg (25-35) Mean Corpuscular Hemoglobin Concent 35 g/dL (31-37) Red Cell Distribution Width 16.8 % (11.5-14.5) Platelet Count 283 x10^3/uL (140-400) Neutrophils (%) (Auto) 81 % (31-73) Lymphocytes (%) (Auto) 11 % (24-48) Monocytes (%) (Auto) 7 % (0-9) Eosinophils (%) (Auto) 0 % (0-3) Basophils (%) (Auto) 0 % (0-3) Neutrophils # (Auto) 8.9 x10^3uL (1.8-7.7) Lymphocytes # (Auto) 1.2 x10^3/uL (1.0-4.8) Monocytes # (Auto) 0.8 x10^3/uL (0.0-1.1) Eosinophils # (Auto) 0.0 x10^3/uL (0.0-0.7) Basophils # (Auto) 0.0 x10^3/uL (0.0-0.2) Microbiology 06/30/18 Urine Culture - Final, Complete 06/30/18 Urine Culture Result 1 (LINH) - Final, Complete Medications Current Medications Morphine Sulfate (Morphine Sulfate) 4 mg 1X ONCE IV Last administered on 06/29at 11:40; Start 06/29/18 at 11:30; Stop 06/29/18 at 11:31; Status DC Ondansetron HCl (Zofran) 4 mg 1X ONCE IV Last administered on 06/29/18 11:44; Start 06/29/18 at 11:45; Stop 06/29/18 at 11:46; Status DC Ondansetron HCl (Zofran) 4 mg STK-MED ONCE .ROUTE ; Start 06/29/18 at 11:43; Stop 06/29/18 at 11:44; Status DC Ondansetron HCl (Zofran) 4 mg PRN Q8HRS PRN IV NAUSEA/VOMITING; Start 06/29/18 at 12:15; Stop 06/30/18 at 12:14; Status DC Morphine Sulfate (Morphine Sulfate) 4 mg 1X ONCE IV Last administered on 06/29/18 13:25; Start 06/29/18 at 13:30; Stop 06/29/18 at 13:31; Status DC Clonidine HCl (Catapres) 0.1 mg BID PO Last administered on 07/10/18 07:42; Start 06/29/18 at 21:00 Cyanocobalamin (Vitamin B-12) 1,000 mcg DAILY PO Last administered on 07/10/18 07:37; Start 06/29/18 at 16:30 Sevelamer Carbonate (Renvela) 800 mg TIDWMEALS PO Last administered on 07/10/18 07:36; Start 06/29/18 at 17:00 Hydrocortisone (Cortef) 20 mg DAILYWBKFT PO Last administered on 07/02/18 08:55; Start 06/29/18 at 16:30; Stop 07/02/18 at 09:53; Status DC Multivitamins (Thera M Plus) 1 tab DAILY PO Last administered on 07/10/18 07:37; Start 06/29/18 at 16:30 Olanzapine (ZyPREXA) 20 mg QHS PO Last administered on 07/04/18 19:50; Start 06/29/18 at 21:00; Stop 07/05/18 at 13:49; Status DC Pantoprazole Sodium (Protonix) 40 mg DAILYAC PO Last administered on 06/29/18 18:31; Start 06/29/18 at 16:30; Stop 07/01/18 at 07:33; Status DC Heparin Sodium (Porcine) (Heparin Sodium) 5,000 unit Q8HRS SQ Last administered on 07/10/18 06:09; Start 06/29/18 at 22:00 Acetaminophen (Tylenol) 650 mg 1X ONCE PO Last administered on 06/29/18at 18:32; Start 06/29/18 at 16:30; Stop 06/29/18 at 16:31; Status DC Oxycodone/ Acetaminophen (Percocet 5/325) 1 tab PRN Q4HRS PRN PO PAIN Last administered on 07/10/18 08:41; Start 06/29/18 at 20:00 Iohexol (Omnipaque 350 Mg/ml) 75 ml 1X ONCE IV Last administered on 06/29/18 21:01; Start 06/29/18 at 21:00; Stop 06/29/18 at 21:03; Status DC Labetalol HCl (Normodyne Iv Push) 10 mg PRN Q10MIN PRN IVP HYPERTENSION, SEE COMMENTS Last administered on 07/07/18at 10:01; Start 06/29/18 at 21:15; Status Future Hold Acetaminophen (Tylenol) 650 mg PRN Q6HRS PRN PO TEMP > 100.4F; Start 06/29/18 at 21:15 Acetaminophen (Tylenol Supp) 650 mg PRN Q4HRS PRN [place] TEMP > 100.4F; Start 06/29/18 at 21:15 Aspirin (Ecotrin) 325 mg DAILYWBKFT PO Last administered on 07/10/18at 07:36; Start 06/30/18 at 08:00 Aspirin (Aspirin Rectal Supp) 300 mg PRN DAILY PRN [place] IF UNABLE TO TAKE PO; Start 06/29/18 at 21:15 Morphine Sulfate (Morphine Sulfate) 2 mg PRN Q2HR PRN IV SEVERE PAIN 7-10 Last administered on 07/10/18at 06:01; Start 06/29/18 at 22:30 Levetiracetam 500 mg/Dextrose 105 ml @ 420 mls/hr Q12HR IV Last administered on 07/10/18 08:41; Start 06/30/18 at 00:00 Levetiracetam 1000 mg/Dextrose 110 ml @ 440 mls/hr 1X ONCE IV Last administered on 06/30/18 02:25; Start 06/30/18 at 02:30; Stop 06/30/18 at 02:44; Status DC Lorazepam (Ativan) 1 mg PRN Q2HRS PRN IV TREMORS; Start 06/30/18 at 02:00 Fosphenytoin Sodium 1390 mg/ Sodium Chloride 77.8 ml @ 311.2 mls/ hr 1X ONCE IV Last administered on 06/30/18at 04:44; Start 06/30/18 at 05:00; Stop 06/30/18 at 05:14; Status DC Propofol 100 ml @ As Directed STK-MED ONCE IV ; Start 06/30/18 at 05:58; Stop 06/30/18 at 05:59; Status DC Succinylcholine Chloride (Anectine) 200 mg STK-MED ONCE .ROUTE ; Start 06/30/18 at 05:59; Stop 06/30/18 at 06:00; Status DC Propofol 100 ml @ 1.39 mls/hr 1X ONCE IV Last administered on 06/30/18at 06:30; Start 06/30/18 at 06:30; Stop 07/01/18 at 17:31; Status DC Succinylcholine Chloride (Anectine) 200 mg 1X ONCE IV Last administered on 06/30/18at 06:21; Start 06/30/18 at 06:30; Stop 06/30/18 at 06:31; Status DC Propofol 100 ml @ 0 mls/hr CONT PRN IV SEE I/O RECORD Last administered on 07/03/18at 02:50; Start 06/30/18 at 06:30; Stop 07/05/18 at 15:46; Status DC Fentanyl Citrate 30 ml @ 0 mls/hr CONT PRN IV SEE PROTOCOL; Start 06/30/18 at 06:30; Stop 07/03/18 at 17:50; Status DC Midazolam HCl 100 ml @ 0 mls/hr CONT PRN IV SEE PROTOCOL; Start 06/30/18 at 06:30; Stop 07/03/18 at 17:50; Status DC Fosphenytoin Sodium (Cerebyx) 100 mg Q8HRS IV Last administered on 07/10/18at 06:06; Start 06/30/18 at 14:00 Hydrocortisone Sodium Succinate (Solu-CORTEF) 100 mg Q8HRS IV Last administered on 07/10/18at 05:59; Start 06/30/18 at 14:00 Lansoprazole (Prevacid) 30 mg DAILYAC NG Last administered on 07/10/18at 07:36; Start 07/01/18 at 07:30 Sodium Chloride 1,000 ml @ 1,000 mls/hr Q1H PRN IV hypotension; Start 07/01/18 at 08:00; Stop 07/01/18 at 18:00; Status DC Albumin Human 200 ml @ 200 mls/hr 1X PRN PRN IV Hypotension; Start 07/01/18 at 08:00; Stop 07/01/18 at 18:00; Status DC Acetaminophen (Tylenol) 500 mg 1X PRN PRN PO MILD PAIN / TEMP; Start 07/01/18 at 07:45; Stop 07/01/18 at 18:00; Status DC Diphenhydramine HCl (Benadryl) 25 mg 1X PRN PRN IV ITCHING; Start 07/01/18 at 07:45; Stop 07/01/18 at 18:00; Status DC Diphenhydramine HCl (Benadryl) 25 mg 1X PRN PRN IV ITCHING; Start 07/01/18 at 07:45; Stop 07/01/18 at 18:00; Status DC Sodium Chloride (Normal Saline Flush) 10 ml 1X PRN PRN IV AP catheter pack; Start 07/01/18 at 07:45; Stop 07/01/18 at 18:00; Status DC Sodium Chloride (Normal Saline Flush) 10 ml 1X PRN PRN IV E BUSINESS SPECIALIST catheter pack; Start 07/01/18 at 07:45; Stop 07/01/18 at 18:00; Status DC Sodium Chloride 1,000 ml @ 400 mls/hr Q2H30M PRN IV PATENCY; Start 07/01/18 at 08:00; Stop 07/01/18 at 18:00; Status DC Info (PHARMACY MONITORING -- do not chart) 1 each PRN DAILY PRN MC SEE COMMENTS; Start 07/01/18 at 08:00; Stop 07/04/18 at 07:54; Status DC Gentamicin Sulfate (Gentak) 0.25 inch [id number] OU ; Start 07/02/18 at 23:00; Status Cancel Tobramycin Sulfate (Tobrex Ophth Soln) 2 drop Q4HRS OU Last administered on 07/05/18at 08:53; Start 07/03/18 at 00:00; Stop 07/05/18 at 13:05; Status DC Multi-Ingred Cream/Lotion/Oil/ Oint (Artificial Tears Eye Ointment) 1 juliette PRN Q1HR PRN OU DRY EYE; Start 07/03/18 at 18:45 Sodium Chloride 1,000 ml @ 1,000 mls/hr Q1H PRN IV hypotension; Start 07/04/18 at 07:47; Stop 07/04/18 at 13:46; Status DC Albumin Human 200 ml @ 200 mls/hr 1X PRN PRN IV Hypotension; Start 07/04/18 at 08:00; Stop 07/04/18 at 13:59; Status DC Acetaminophen (Tylenol) 500 mg 1X PRN PRN PO MILD PAIN / TEMP; Start 07/04/18 at 08:00; Stop 07/05/18 at 07:59; Status DC Diphenhydramine HCl (Benadryl) 25 mg 1X PRN PRN IV ITCHING; Start 07/04/18 at 08:00; Stop 07/05/18 at 07:59; Status DC Diphenhydramine HCl (Benadryl) 25 mg 1X PRN PRN IV ITCHING; Start 07/04/18 at 08:00; Stop 07/05/18 at 07:59; Status DC Sodium Chloride (Normal Saline Flush) 10 ml 1X PRN PRN IV AP catheter pack; Start 07/04/18 at 08:00; Stop 07/05/18 at 07:59; Status DC Sodium Chloride (Normal Saline Flush) 10 ml 1X PRN PRN IV E BUSINESS SPECIALIST catheter pack; Start 07/04/18 at 08:00; Stop 07/05/18 at 07:59; Status DC Sodium Chloride 1,000 ml @ 400 mls/hr Q2H30M PRN IV PATENCY; Start 07/04/18 at 07:47; Stop 07/04/18 at 19:46; Status DC Info (PHARMACY MONITORING -- do not chart) 1 each PRN DAILY PRN MC SEE COMMENTS; Start 07/04/18 at 08:00; Stop 07/09/18 at 14:03; Status DC Ciprofloxacin (Ciloxan Ophth) 2 drop Q1H OU Last administered on 07/10/18at 10:45; Start 07/05/18 at 13:15 Benztropine Mesylate (Cogentin) 1 mg PRN BID PRN PO EXTRAPYRAMIDAL EFFECTS; Start 07/05/18 at 13:45 Hydroxyzine Pamoate (Vistaril) 50 mg TID PO Last administered on 07/10/18at 08:43; Start 07/05/18 at 14:00 Olanzapine (ZyPREXA) 30 mg QHS PO Last administered on 07/09/18at 19:22; Start 07/05/18 at 21:00 Divalproex Sodium (Depakote Er) 1,500 mg QHS PO Last administered on 07/09/18at 21:19; Start 07/05/18 at 21:00 Sodium Chloride 1,000 ml @ 1,000 mls/hr Q1H PRN IV hypotension; Start 07/06/18 at 06:30; Stop 07/06/18 at 06:35; Status DC Diphenhydramine HCl (Benadryl) 25 mg 1X PRN PRN IV ITCHING; Start 07/06/18 at 06:30; Stop 07/07/18 at 06:29; Status DC Diphenhydramine HCl (Benadryl) 25 mg 1X PRN PRN IV ITCHING; Start 07/06/18 at 06:30; Stop 07/07/18 at 06:29; Status DC Sodium Chloride 1,000 ml @ 400 mls/hr Q2H30M PRN IV PATENCY; Start 07/06/18 at 06:30; Stop 07/06/18 at 06:35; Status DC Info (PHARMACY MONITORING -- do not chart) 1 each PRN DAILY PRN MC SEE COMMENTS; Start 07/06/18 at 06:30 Metoprolol Tartrate (Lopressor) 25 mg BID PO Last administered on 07/10/18at 07:41; Start 07/08/18 at 21:00 Metoprolol Tartrate (Lopressor) 25 mg ONCE ONCE PO Last administered on 07/08/18at 06:39; Start 07/08/18 at 06:45; Stop 07/08/18 at 06:46; Status DC Sodium Chloride 1,000 ml @ 1,000 mls/hr Q1H PRN IV hypotension; Start 07/08/18 at 08:53; Stop 07/08/18 at 14:52; Status DC Albumin Human 200 ml @ 200 mls/hr 1X PRN PRN IV Hypotension; Start 07/08/18 at 09:00; Stop 07/08/18 at 14:59; Status DC Sodium Chloride (Normal Saline Flush) 10 ml 1X PRN PRN IV AP catheter pack; Start 07/08/18 at 09:00; Stop 07/09/18 at 08:59; Status DC Sodium Chloride (Normal Saline Flush) 10 ml 1X PRN PRN IV E BUSINESS SPECIALIST catheter pack; Start 07/08/18 at 09:00; Stop 07/09/18 at 08:59; Status DC Sodium Chloride 1,000 ml @ 400 mls/hr Q2H30M PRN IV PATENCY; Start 07/08/18 at 08:53; Stop 07/08/18 at 20:52; Status DC Info (PHARMACY MONITORING -- do not chart) 1 each PRN DAILY PRN MC SEE COMMENTS; Start 07/08/18 at 09:00; Status UNV Info (PHARMACY MONITORING -- do not chart) 1 each PRN DAILY PRN MC SEE COMMENTS; Start 07/08/18 at 09:00; Status UNV Senna/Docusate Sodium (Senna Plus) 2 tab PRN BID PRN PO CONSTIPATION Last administered on 07/10/18at 08:41; Start 07/09/18 at 12:30 Polyethylene Glycol (miraLAX PACKET) 17 gm PRN BID PRN PO CONSTIPATION; Start 07/09/18 at 12:30 Active Scripts Active Clonidine Hcl 0.1 Mg Tablet 0.1 Mg PO BID [Pantoprazole] 40 MG Tablet.dr 40 Mg PO DAILYAC MDD 1 Renvela (Sevelamer Carbonate) 800 Mg Tablet 800 Mg PO TIDWMEALS MDD 1 Reported Depakote (Divalproex Sodium) 500 Mg Tablet.dr 1,500 Mg PO HS Hydroxyzine Hcl 50 Mg Tablet 50 Mg PO TID Olanzapine 10 Mg Tablet 30 Mg PO HS Ibuprofen 400 Mg Tablet 400 Mg PO PRN Q6HRS PRN Benztropine Mesylate 1 Mg Tablet 1 Tab PO BID PRN Haloperidol 10 Mg Tablet 20 Mg PO HS Multivitamins (Multivitamin) 1 Each Tablet 1 Tab PO DAILY Vitamin B-12 (Cyanocobalamin (Vitamin B-12)) 1,000 Mcg Tablet 1 Tab PO DAILY Cortef (Hydrocortisone) 20 Mg Tablet 20 Mg PO DAILY Vitals/I & O Vital Sign - Last 24 Hours 07/09/18 07/09/18 07/09/18 07/09/18 11:48 13:48 15:00 16:14 Temp 98.5 98.5 Pulse 88 Resp 20 16 20 B/P (MAP) 148/101 (117) Pulse Ox 100 O2 Delivery Room Air Room Air Room Air Room Air 07/09/18 07/09/18 07/09/18 07/09/18 19:17 19:35 19:54 21:19 Temp 98.1 98.1 Pulse 95 95 Resp 20 16 B/P (MAP) 143/99 (114) 143/99 Pulse Ox 94 O2 Delivery Room Air Room Air Room Air 07/09/18 07/09/18 07/09/18 07/09/18 21:19 21:32 23:03 23:21 Temp 98.0 98.0 Pulse 95 91 Resp 20 20 16 B/P (MAP) 143/99 148/99 (115) Pulse Ox 94 O2 Delivery Room Air Room Air Room Air 07/09/18 07/10/18 07/10/18 07/10/18 23:40 00:10 03:45 06:01 Temp 98.2 98.2 Pulse 65 Resp 20 20 16 20 B/P (MAP) 142/94 (110) Pulse Ox 99 O2 Delivery Room Air Room Air Room Air 07/10/18 07/10/18 07/10/18 07/10/18 06:31 07:00 07:41 07:42 Temp 97.8 97.8 Pulse 80 77 77 Resp 20 18 B/P (MAP) 169/96 (120) 169/96 169/96 Pulse Ox 92 O2 Delivery Room Air Room Air 07/10/18 07/10/18 07/10/18 08:00 08:41 09:41 O2 Delivery Room Air Room Air Room Air Intake and Output 07/09/18 07/09/18 07/10/18 15:00 23:00 07:00 Intake Total 100 ml 680 ml Output Total 175 ml Balance -75 ml 680 ml CLYDE ARECHIGA MD July 10, 2018 11:10
--- NOTE | 2018-07-10 11:15 | NUR ---
[facility] denied inpatient transfer, stating they do not have an repeater operator who is agreeable to see patient at this time. SUE contacted [facility] transfer line, requesting any hospital in their network who would accept pt, faxed requested records and medicaid application. SW waiting to hear from [facility] regarding acceptance or denial. SUE left message for Mireille at [facility] regarding pt chair time. RN notified. SUE will continue to follow.
--- NOTE | 2018-07-10 12:11 | NUR ---
SUE following. Discussed with Dr. Moody, he had faxed face sheet to [facility] who said they just needed the medicaid application. SUE faxed medicaid application to [facility], no beds today, but possibility of being placed on the wait list - wait list has 5 pt's currently. SUE will continue to follow.
--- NOTE | 2018-07-10 13:48 | PDOC ---
SUBJECTIVE ROS Stable OBJECTIVE Vital Signs Vital Signs Date Time Temp Pulse Resp B/P (MAP) Pulse Ox O2 Delivery O2 Flow Rate FiO2 07/10/18 12:38 Room Air 07/10/18 11:00 97.7 85 17 159/97 (117) 93 97.7 07/09/18 08:00 3.0 I & 0 Intake and Output 07/10/18 07:00 Intake Total 780 ml Output Total 175 ml Balance 605 ml Intake Oral 780 ml Output Urine Total 175 ml PHYSICAL EXAM Physical Exam General NAD , HEENT: OM moist Neck: Supple Lungs- CTA bilat CV RRR Ext- No LE edema Gu- No Pete Neuro- Alert xO x3 DIAGNOSIS/ASSESSMENT Assessment & Plan New ESRD - S/P Renal Bx 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 SW for OP chair time Good pasture's syndrome- post renal Bx No Obvious Lung involvement Anti GBM positive, 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 bilateral scleral edema/erythema and anterior chamber cloudiness Malignant HTN - Controlled now Seizures - No recent Sz activity per neurology Posterior reversible encephalopathy syndrome,(PRES) Neurology following 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 Anemia - Hgb stable HEP B- Positive Ab, repeat negative 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 Per primary COMMENT/RELEVANT DATA Meds Current Medications Medications (Trade) Dose Ordered Sig/Essence Start Time Stop Time Status Last Admin Dose Admin Acetaminophen (Tylenol Supp) 650 mg PRN Q4HRS PRN 06/29/18 21:15 Acetaminophen (Tylenol) 500 mg 1X PRN PRN 07/04/18 08:00 07/05/18 07:59 DC Albumin Human 200 ml @ 200 mls/hr 1X PRN PRN 07/08/18 09:00 07/08/18 14:59 DC Aspirin (Aspirin Rectal Supp) 300 mg PRN DAILY PRN 06/29/18 21:15 Aspirin (Ecotrin) 325 mg DAILYWBKFT 06/30/18 08:00 07/10/18 07:36 325 MG Benztropine Mesylate (Cogentin) 1 mg PRN BID PRN 07/05/18 13:45 Ciprofloxacin (Ciloxan Ophth) 2 drop Q1H 07/05/18 13:15 07/10/18 12:37 2 DROP Clonidine HCl (Catapres) 0.1 mg BID 06/29/18 21:00 07/10/18 07:42 0.1 MG Cyanocobalamin (Vitamin B-12) 1,000 mcg DAILY 06/29/18 16:30 07/10/18 07:37 1,000 MCG Diphenhydramine HCl (Benadryl) 25 mg 1X PRN PRN 07/06/18 06:30 07/07/18 06:29 DC Divalproex Sodium (Depakote Er) 1,500 mg QHS 07/05/18 21:00 07/09/18 21:19 1,500 MG Fentanyl Citrate 30 ml @ 0 mls/hr CONT PRN 06/30/18 06:30 07/03/18 17:50 DC Fosphenytoin Sodium (Cerebyx) 100 mg Q8HRS 06/30/18 14:00 07/10/18 06:06 100 MG Fosphenytoin Sodium 1390 mg/ Sodium Chloride 77.8 ml @ 311.2 mls/ hr 1X ONCE 06/30/18 05:00 06/30/18 05:14 DC 06/30/18 04:44 311.2 MLS/HR Gentamicin Sulfate (Gentak) 0.25 inch [id number] 07/02/18 23:00 Cancel Heparin Sodium (Porcine) (Heparin Sodium) 5,000 unit Q8HRS 06/29/18 22:00 07/10/18 06:09 5,000 UNIT Hydrocortisone (Cortef) 20 mg DAILYWBKFT 06/29/18 16:30 07/02/18 09:53 DC 07/02/18 08:55 20 MG Hydrocortisone Sodium Succinate (Solu-CORTEF) 100 mg Q8HRS 06/30/18 14:00 07/10/18 05:59 100 MG Hydroxyzine Pamoate (Vistaril) 50 mg TID 07/05/18 14:00 07/10/18 08:43 50 MG Info (PHARMACY MONITORING -- do not chart) 1 each PRN DAILY PRN 07/08/18 09:00 UNV Iohexol (Omnipaque 350 Mg/ml) 75 ml 1X ONCE 06/29/18 21:00 06/29/18 21:03 DC 06/29/18 21:01 75 ML Labetalol HCl (Normodyne Iv Push) 10 mg PRN Q10MIN PRN 06/29/18 21:15 Future Hold 07/07/18 10:01 10 MG Lansoprazole (Prevacid) 30 mg DAILYAC 07/01/18 07:30 07/10/18 07:36 30 MG Levetiracetam 1000 mg/Dextrose 110 ml @ 440 mls/hr 1X ONCE 06/30/18 02:30 06/30/18 02:44 DC 06/30/18 02:25 440 MLS/HR Levetiracetam 500 mg/Dextrose 105 ml @ 420 mls/hr Q12HR 06/30/18 00:00 07/10/18 08:41 420 MLS/HR Lorazepam (Ativan) 1 mg PRN Q2HRS PRN 06/30/18 02:00 Metoprolol Tartrate (Lopressor) 25 mg ONCE ONCE 07/08/18 06:45 07/08/18 06:46 DC 07/08/18 06:39 25 MG Midazolam HCl 100 ml @ 0 mls/hr CONT PRN 06/30/18 06:30 07/03/18 17:50 DC Morphine Sulfate (Morphine Sulfate) 2 mg PRN Q2HR PRN 06/29/18 22:30 07/10/18 06:01 2 MG Multi-Ingred Cream/Lotion/Oil/ Oint (Artificial Tears Eye Ointment) 1 juliette PRN Q1HR PRN 07/03/18 18:45 Multivitamins (Thera M Plus) 1 tab DAILY 06/29/18 16:30 07/10/18 07:37 1 TAB Olanzapine (ZyPREXA) 30 mg QHS 07/05/18 21:00 07/09/18 19:22 30 MG Ondansetron HCl (Zofran) 4 mg PRN Q8HRS PRN 06/29/18 12:15 06/30/18 12:14 DC Oxycodone/ Acetaminophen (Percocet 5/325) 1 tab PRN Q4HRS PRN 06/29/18 20:00 07/10/18 12:38 1 TAB Pantoprazole Sodium (Protonix) 40 mg DAILYAC 06/29/18 16:30 07/01/18 07:33 DC 06/29/18 18:31 40 MG Polyethylene Glycol (miraLAX PACKET) 17 gm PRN BID PRN 07/09/18 12:30 Propofol 100 ml @ 0 mls/hr CONT PRN 06/30/18 06:30 07/05/18 15:46 DC 07/03/18 02:50 16.682 MLS/HR Senna/Docusate Sodium (Senna Plus) 2 tab PRN BID PRN 07/09/18 12:30 07/10/18 08:41 2 TAB Sevelamer Carbonate (Renvela) 800 mg TIDWMEALS 06/29/18 17:00 07/10/18 12:37 800 MG Sodium Chloride 1,000 ml @ 400 mls/hr Q2H30M PRN 07/08/18 08:53 07/08/18 20:52 DC Sodium Chloride (Normal Saline Flush) 10 ml 1X PRN PRN 07/08/18 09:00 07/09/18 08:59 DC Succinylcholine Chloride (Anectine) 200 mg 1X ONCE 06/30/18 06:30 06/30/18 06:31 DC 06/30/18 06:21 200 MG Tobramycin Sulfate (Tobrex Ophth Soln) 2 drop Q4HRS 07/03/18 00:00 07/05/18 13:05 DC 07/05/18 08:53 2 DROP Lab Laboratory Tests Test 07/10/18 05:35 White Blood Count 11.0 x10^3/uL (4.0-11.0) Red Blood Count 3.24 x10^6/uL (4.30-5.70) Hemoglobin 10.4 g/dL (13.0-17.5) Hematocrit 29.6 % (39.0-53.0) Mean Corpuscular Volume 91 fL (79-100) Mean Corpuscular Hemoglobin 32 pg (25-35) Mean Corpuscular Hemoglobin Concent 35 g/dL (31-37) Red Cell Distribution Width 16.8 % (11.5-14.5) Platelet Count 283 x10^3/uL (140-400) Neutrophils (%) (Auto) 81 % (31-73) Lymphocytes (%) (Auto) 11 % (24-48) Monocytes (%) (Auto) 7 % (0-9) Eosinophils (%) (Auto) 0 % (0-3) Basophils (%) (Auto) 0 % (0-3) Neutrophils # (Auto) 8.9 x10^3uL (1.8-7.7) Lymphocytes # (Auto) 1.2 x10^3/uL (1.0-4.8) Monocytes # (Auto) 0.8 x10^3/uL (0.0-1.1) Eosinophils # (Auto) 0.0 x10^3/uL (0.0-0.7) Basophils # (Auto) 0.0 x10^3/uL (0.0-0.2) Results All relevant outside records, renal labs, imaging studies, telemetry/EKG's were reviewed. EDEL ADKINS MD July 10, 2018 13:48
--- NOTE | 2018-07-10 14:36 | PDOC ---
PROGRESS NOTES Assessment Assessment PRES. Vision loss with corneal cloudiness, infection (peripheral etiologies) Hypertensive emergency, BP 212/133 mmHg. Seizure. Headache. Metabolic encephalopathy. Vision loss. Petechial cerebral hemorrhage. Renal failure. UTI? Pleural effusion. Anemia. Hypocalcemia. Schizophrenia. Bipolar disorder. Arron's disease. RECOMMENDATIONS/PLAN: ASA 325 mg daily. Continue ophthalmological treatment, antibiotic eye drops. Continue Keppra 500 mg bid. Treat medical diseases. Continue dialysis. Transfer to other medical facility with in house ophthalmology services. Tried transfer multiple times in the past several days at least 5 to 6 days, but has no hospital accept transfer so far. [facility] and some other hospitals in its system declined transfer in the past several days per Dr. Moody. Tried [facility] on 07/10/19, and have [facility] to follow up with [facility] for transfer. OT/PT. Past Medical History GI: Hemorrhoids, Other (diarrhea) Heme/Onc: Cancer (thyroid (Para?)) Psych: Anxiety, Depression, Schizophrenia Renal/: Acute renal failure Endocrine: Other (Arron's disease) Past Surgical History Cholecystectomy, Other (cervical fusion, left knee, parathyroidectomy) Family History Hypertension Social History He is homeless, he denied earlier having use of alcohol, tobacco, or street drugs. ROS Negative for fever, chills, weight loss, shortness of breath, chest pain, indigestion, hematochezia, melena, and dysuria. Full 14-point review of systems is negative. ALLERGY: NKDA MEDICATIONS: Refer to MAR PHYSICAL EXAMINATION: General appearance in subacute distress. HEENT: Normocephalic and nontraumatic. Eyes, nose, ears, and throat are unremarkable. Neck is supple. No lymphadenopathy. No Crepitus. Cardiovascular: S1, S2, regular rate and rhythm. Pulmonary: Decreased to auscultation bilaterally. Abdomen: Bowel sounds are positive. Extremities: No rash, lesions, or edema. No restriction of range of motion NEUROLOGICAL EXAMINATION: Awake. Sitting in chair. Partially oriented to time, but knew place and his familiar person. PERRL. EOMI. Corneal cloudiness. Sclera redness and congestion. (Patient stated his eyes have been itching since admission.) Only has light perception and sight for close finger movements and finger count. CN: no focal findings. Muscle tone: within normal. Muscle strength: 4+. DTR: 1-2 Plantar reflex: Neutral response bilaterally Gait: Not examined in chair. Sensory exam: Withdraw response noted. Not able to access cerebellar signs this time. F-T-N test not performed due to not able to follow commands. Objective Objective Vital Signs Date Time Temp Pulse Resp B/P (MAP) Pulse Ox O2 Delivery O2 Flow Rate FiO2 07/10/18 12:38 Room Air 07/10/18 11:00 97.7 85 17 159/97 (117) 93 97.7 07/09/18 08:00 3.0 Intake and Output 07/10/18 06:59 Intake Total 780 ml Output Total 175 ml Balance 605 ml Intake Oral 780 ml Output Urine Total 175 ml Vitals Signs Vitals VS - Last 72 Hours, by Label Date Time Temp Pulse Resp B/P (MAP) Pulse Ox O2 Delivery O2 Flow Rate FiO2 07/10/18 12:38 Room Air 07/10/18 11:00 97.7 85 17 159/97 (117) 93 Room Air 97.7 07/10/18 09:41 Room Air 07/10/18 08:41 Room Air 07/10/18 08:00 Room Air 07/10/18 07:42 77 169/96 07/10/18 07:41 77 169/96 07/10/18 07:00 97.8 80 18 169/96 (120) 92 Room Air 97.8 07/10/18 06:31 20 Room Air 07/10/18 06:01 20 Room Air 07/10/18 03:45 98.2 65 16 142/94 (110) 99 Room Air 98.2 07/10/18 00:10 20 07/09/18 23:40 20 Room Air 07/09/18 23:21 98.0 91 16 148/99 (115) 94 Room Air 98.0 07/09/18 23:03 20 Room Air 07/09/18 21:32 20 Room Air 07/09/18 21:19 95 143/99 07/09/18 21:19 95 143/99 07/09/18 19:54 98.1 95 16 143/99 (114) 94 Room Air 98.1 07/09/18 19:35 Room Air 07/09/18 19:17 20 Room Air 07/09/18 16:14 20 Room Air 07/09/18 15:00 98.5 88 16 148/101 (117) 100 Room Air 98.5 07/09/18 13:48 Room Air 07/09/18 11:48 20 Room Air 07/09/18 11:00 97.9 85 16 165/107 (126) 96 Room Air 97.9 07/09/18 08:32 92 166/97 07/09/18 08:32 20 Room Air 07/09/18 08:31 92 166/97 07/09/18 08:00 Room Air 3.0 07/09/18 07:00 98.1 88 16 167/113 (131) 90 Room Air 98.1 Laboratory Laboratory Laboratory Tests Test 07/10/18 05:35 White Blood Count 11.0 x10^3/uL (4.0-11.0) Red Blood Count 3.24 x10^6/uL (4.30-5.70) Hemoglobin 10.4 g/dL (13.0-17.5) Hematocrit 29.6 % (39.0-53.0) Mean Corpuscular Volume 91 fL (79-100) Mean Corpuscular Hemoglobin 32 pg (25-35) Mean Corpuscular Hemoglobin Concent 35 g/dL (31-37) Red Cell Distribution Width 16.8 % (11.5-14.5) Platelet Count 283 x10^3/uL (140-400) Neutrophils (%) (Auto) 81 % (31-73) Lymphocytes (%) (Auto) 11 % (24-48) Monocytes (%) (Auto) 7 % (0-9) Eosinophils (%) (Auto) 0 % (0-3) Basophils (%) (Auto) 0 % (0-3) Neutrophils # (Auto) 8.9 x10^3uL (1.8-7.7) Lymphocytes # (Auto) 1.2 x10^3/uL (1.0-4.8) Monocytes # (Auto) 0.8 x10^3/uL (0.0-1.1) Eosinophils # (Auto) 0.0 x10^3/uL (0.0-0.7) Basophils # (Auto) 0.0 x10^3/uL (0.0-0.2) Microbiology 06/30/18 Urine Culture - Final, Complete 06/30/18 Urine Culture Result 1 (LINH) - Final, Complete Comment Review of Relevant I have reviewed the following items medardo (where applicable) has been applied. ROSHNI BASHIR MD July 10, 2018 14:36
--- NOTE | 2018-07-10 15:46 | NUR ---
All [facility] hospitals in [place] and [place] have denied inpatient transfer. [facility] trying to figure out whether they can take pt or not, they do not have beds today. SUE trying to determine if pt has been placed on the wait list for tomorrow. SUE contact [facility], at [facility] to advise SW has not been able to reach Tamera and has left messages with no call back. [facility] advised she would reach out to Tamera as well as supervisors in order to determine where the case is at with pt chair time and acceptance. [facility] contacted SUE to advise pt is able to be accepted financially for chair time at [facility], and the file has been sent to the medical staff credentialing coordinator to review/accept, this can take up to 24 hours. RN notified. SUE will continue to follow.
[2018-07-10 15:55] VITALS: BP 148/101
--- NOTE | 2018-07-10 16:22 | NUR ---
SUE following. [facility] have accepted pt and have placed pt on the wait list. [facility] will contact SUE tomorrow (07/11/18) morning to advise of whether pt can transfer tomorrow. RN notified. SUE will continue to follow.
[2018-07-10 19:00] VITALS: BP 149/92
[2018-07-10] MEDS: OLANZapine 5 MG TABLET PO SCH (20:38)
[2018-07-10] MEDS: DIVALPROEX EXTENDED RELEASE 500 MG TAB.ER.24H. PO SCH (20:39)
[2018-07-10 23:00] VITALS: BP 155/97
[2018-07-11] MEDS: CIPROFLOXACIN 0.3% OPHTH SOLUTION 5ML BOTTLE. OU SCH ×20 (00:19→19:07)
[2018-07-11 03:00] VITALS: BP 163/97
[2018-07-11] MEDS: HYDROCORTISONE SOD SUCC/PF 100 MG/2 ML VIAL. IV SCH ×2 (05:52→15:16)
[2018-07-11] MEDS: FOSPHENYTOIN 100 MG/2 ML VIAL. IV SCH ×2 (05:54→15:17)
[2018-07-11] MEDS: HEPARIN for SUB-Q USE 5,000 UNIT/ML VIAL. SQ SCH ×2 (05:54→15:22)
[2018-07-11 06:48] LABS: BASO % 0 % (0-3); EOS % 0 % (0-3); HEMATOCRIT 30.6 % (39.0-53.0); HEMOGLOBIN 10.5 g/dL (13.0-17.5); LYMPH # 1.3 x10^3/uL (1.0-4.8); LYMPH % 13 % (24-48); MEAN CORPUSCULAR HEMOGLOBIN 32 pg (25-35); MEAN CORPUSCULAR HGB CONC 35 g/dL (31-37); MEAN CORPUSCULAR VOLUME 92 fL (79-100); MONO # 0.6 x10^3/uL (0.0-1.1); MONO % 6 % (0-9); NEUT # 8.2 x10^3uL (1.8-7.7); NEUT % 80 % (31-73); PLATELET COUNT 303 x10^3/uL (140-400); RED BLOOD COUNT 3.34 x10^6/uL (4.30-5.70); RED CELL DISTRIBUTION WIDTH 16.7 % (11.5-14.5); WHITE BLOOD COUNT 10.2 x10^3/uL (4.0-11.0)
[2018-07-11 07:00] VITALS: BP 196/101
[2018-07-11] MEDS: CYANOCOBALAMIN (VITAMIN B-12) 1,000 MCG TABLET. PO SCH (08:11)
[2018-07-11] MEDS: ASPIRIN ENTERIC COATED 325 MG TABLET.DR. PO SCH (08:11)
[2018-07-11] MEDS: LANSOPRAZOLE 30 MG TAB.RAP.DR NG SCH (08:11)
[2018-07-11] MEDS: SENNOSIDES/DOCUSATE 8.6/50MG TABLET. PO PRN (08:11)
[2018-07-11] MEDS: hydrOXYzine PAMOATE 25 MG CAPSULE PO SCH ×2 (08:12→15:16)
[2018-07-11] MEDS: SEVELAMER CARBONATE 800 MG TABLET. PO SCH ×3 (08:12→17:00)
[2018-07-11] MEDS: cloNIDine HCL 0.1 MG TABLET PO SCH (08:12)
[2018-07-11] MEDS: MULTIVITAMIN with MINERAL TABLET. PO SCH (08:12)
[2018-07-11] MEDS: METOPROLOL TART IMMED RELEASE 25 MG TABLET. PO SCH (08:13)
[2018-07-11] MEDS: oxyCODONE/APAP 5/325 1 TAB TABLET PO PRN ×3 (08:13→19:07)
[2018-07-11] MEDS: levETIRAcetam 500 MG in IV DEXTROSE 5% 100ML 100 ML IV SCH (08:23)
[2018-07-11] MEDS ORDERED: IV NORMAL SALINE 1000ML BAG 1,000 ML IV PRN ×2 (09:54)
[2018-07-11] MEDS ORDERED: diphenhydrAMINE 50 MG/ML VIAL IV PRN ×2 (10:00)
[2018-07-11] MEDS ORDERED: DIALYSIS PATIENT. MC PRN (10:00)
[2018-07-11] MEDS ORDERED: ALBUMIN HUMAN 25% 200 ML IV PRN (10:00)
[2018-07-11] MEDS ORDERED: ACETAMINOPHEN 500 MG TABLET PO PRN (10:00)
[2018-07-11] MEDS ORDERED: 0.9 % SODIUM CHLORIDE 10 ML DISP.SYRIN. IV PRN ×2 (10:00)
--- NOTE | 2018-07-11 10:07 | NUR ---
Report given to dialysis nurse Shilpi, RN re: dialysis today. Shilpi informed of pt requiring hourly Cipro eye gtts. Gtts will be sent with pt to dialysis.
[2018-07-11 11:00] VITALS: BP 189/106
[2018-07-11 11:00] LABS: % BANDS 3 % (0-9); % LYMPHS 11 % (24-48); % METAS 1 % (0-0); % MONOS 2 % (0-10); % SEGS 83 % (35-66); PLT ESTIMATE ADEQUATE (ADEQUATE)
--- NOTE | 2018-07-11 11:29 | NUR ---
notified of BP 189-106, HR 70. Orders received.
[2018-07-11 11:40] VITALS: BP 189/106
--- NOTE | 2018-07-11 12:15 | NUR ---
Pt. upstairs to dialysis via bed per transportation.
--- NOTE | 2018-07-11 13:13 | PDOC ---
PROGRESS NOTES Chief Complaint Chief Complaint A/P: Posterior reversible encephalopathy syndrome - on admission Hypertensive emergency - resolved Seizure disorder and loss of airway requiring ICU stay and intubation during his admission on 06/30/18 - extubation 07/03/18 - cont seizure meds Vision loss with corneal cloudiness (central + peripheral etiologies ?) recent onset, this was documented on admission by neurology on 06/29/18 and not again until 07/05/18, started on Tobramycin, ophthalmology consultation has been requested but not available at our institution, verbal recommendation from local home health attendant greatly appreciated. Most likely infection associated to the use of contact lenses as they had been retrieved from the patients eyes. blurry vision continues to both eyes. continue cipro ophthalmic - efforts are being made to transfer to institution where ophthalmology services can evaluate his recent vision loss. institutions in the area at capacity and unable to accept in transfer, will try again daily. Metabolic encephalopathy - Resolved Petechial cerebral hemorrhage. 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 Was ESRD on 06/22, discharged on 06/27, readmitted on 06/29. Hep B immune status confirmed. He needs a dialysis chair. Clearly he had medicaid and medicare applications completed on prior visit 06/22/2018, was refused by [facility] for chair time 03/25 lack of payor source, apparently UTI? - negative culture Pleural effusion. Anemia. Hypocalcemia. Schizophrenia. Bipolar disorder. 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 He underwent renal biopsy positive for anti- glomerular membrane antibody disease ([place]'s), was placed on dialysis and left the hospital to be with his girlfriend after admission 06/22-06/27, returned on 06/29/2018 because he was unable to complete dialysis, did not have a chair, apparently had insurance pending. The patient complained of some blurred vision initially on admission, generalized weakness, especially in the legs. Stat CT of the head was obtained. CT angiogram was also reviewed. The patient's initial head CT revealed some new findings of hypodensity throughout the bilateral posterior cerebral hemisphere compatible with acute or subacute infarct. There was also some evidence of posterior reversible encephalopathy syndrome which was confirmed on MRI. There was no confirmed hemorrhage seen. The patient was treated for the above. He started having seizures, loaded on fosphenytoin and keppra and was intubated with CXR confirming bilateral pulmonary edema, had red frothy sputum, though no confirmed pulmonary hemorrhage. Seen by pulm. He was then extubated 07/03/18, has been recovering from PRES since. His girlfriend has been bedside frequently. still attempting to transfer patient to [facility]. patient on waiting list. will continue to call and push for transfer given lack of improvement with vision. Vitals Vitals Vital Signs Date Time Temp Pulse Resp B/P (MAP) Pulse Ox O2 Delivery O2 Flow Rate FiO2 07/11/18 11:40 70 189/106 07/11/18 09:17 Room Air 07/11/18 07:00 98.0 16 94 98.0 07/10/18 15:55 96.0 Physical Exam General: Alert, Oriented X3, Cooperative, No acute distress Heart: Regular rate Lungs: Clear Abdomen: Normal bowel sounds Extremities: No clubbing, No cyanosis, No edema, Normal pulses, No tenderness/swelling Skin: No rashes, Other Labs LABS Laboratory Tests Test 07/11/18 05:58 07/11/18 11:22 White Blood Count 10.2 x10^3/uL (4.0-11.0) Red Blood Count 3.34 x10^6/uL (4.30-5.70) Hemoglobin 10.5 g/dL (13.0-17.5) Hematocrit 30.6 % (39.0-53.0) Mean Corpuscular Volume 92 fL (79-100) Mean Corpuscular Hemoglobin 32 pg (25-35) Mean Corpuscular Hemoglobin Concent 35 g/dL (31-37) Red Cell Distribution Width 16.7 % (11.5-14.5) Platelet Count 303 x10^3/uL (140-400) Neutrophils (%) (Auto) 80 % (31-73) Lymphocytes (%) (Auto) 13 % (24-48) Monocytes (%) (Auto) 6 % (0-9) Eosinophils (%) (Auto) 0 % (0-3) Basophils (%) (Auto) 0 % (0-3) Neutrophils # (Auto) 8.2 x10^3uL (1.8-7.7) Lymphocytes # (Auto) 1.3 x10^3/uL (1.0-4.8) Monocytes # (Auto) 0.6 x10^3/uL (0.0-1.1) Eosinophils # (Auto) 0.0 x10^3/uL (0.0-0.7) Basophils # (Auto) 0.0 x10^3/uL (0.0-0.2) Segmented Neutrophils % 83 % (35-66) Band Neutrophils % 3 % (0-9) Lymphocytes % 11 % (24-48) Monocytes % 2 % (0-10) Metamyelocytes % 1 % (0-0) Platelet Estimate Adequate (ADEQUATE) Glucose (Fingerstick) 86 mg/dL (70-99) Assessment and Plan Assessmemt and Plan Problems Medical Problems: (1) Hypertension Status: Acute Comment Review of Relevant I have reviewed the following items medardo (where applicable) has been applied. Labs Laboratory Tests Test 07/10/18 05:35 07/11/18 05:58 07/11/18 11:22 White Blood Count 11.0 x10^3/uL (4.0-11.0) 10.2 x10^3/uL (4.0-11.0) Red Blood Count 3.24 x10^6/uL (4.30-5.70) 3.34 x10^6/uL (4.30-5.70) Hemoglobin 10.4 g/dL (13.0-17.5) 10.5 g/dL (13.0-17.5) Hematocrit 29.6 % (39.0-53.0) 30.6 % (39.0-53.0) Mean Corpuscular Volume 91 fL (79-100) 92 fL (79-100) Mean Corpuscular Hemoglobin 32 pg (25-35) 32 pg (25-35) Mean Corpuscular Hemoglobin Concent 35 g/dL (31-37) 35 g/dL (31-37) Red Cell Distribution Width 16.8 % (11.5-14.5) 16.7 % (11.5-14.5) Platelet Count 283 x10^3/uL (140-400) 303 x10^3/uL (140-400) Neutrophils (%) (Auto) 81 % (31-73) 80 % (31-73) Lymphocytes (%) (Auto) 11 % (24-48) 13 % (24-48) Monocytes (%) (Auto) 7 % (0-9) 6 % (0-9) Eosinophils (%) (Auto) 0 % (0-3) 0 % (0-3) Basophils (%) (Auto) 0 % (0-3) 0 % (0-3) Neutrophils # (Auto) 8.9 x10^3uL (1.8-7.7) 8.2 x10^3uL (1.8-7.7) Lymphocytes # (Auto) 1.2 x10^3/uL (1.0-4.8) 1.3 x10^3/uL (1.0-4.8) Monocytes # (Auto) 0.8 x10^3/uL (0.0-1.1) 0.6 x10^3/uL (0.0-1.1) Eosinophils # (Auto) 0.0 x10^3/uL (0.0-0.7) 0.0 x10^3/uL (0.0-0.7) Basophils # (Auto) 0.0 x10^3/uL (0.0-0.2) 0.0 x10^3/uL (0.0-0.2) Segmented Neutrophils % 83 % (35-66) Band Neutrophils % 3 % (0-9) Lymphocytes % 11 % (24-48) Monocytes % 2 % (0-10) Metamyelocytes % 1 % (0-0) Platelet Estimate Adequate (ADEQUATE) Glucose (Fingerstick) 86 mg/dL (70-99) Laboratory Tests Test 07/11/18 05:58 07/11/18 11:22 White Blood Count 10.2 x10^3/uL (4.0-11.0) Red Blood Count 3.34 x10^6/uL (4.30-5.70) Hemoglobin 10.5 g/dL (13.0-17.5) Hematocrit 30.6 % (39.0-53.0) Mean Corpuscular Volume 92 fL (79-100) Mean Corpuscular Hemoglobin 32 pg (25-35) Mean Corpuscular Hemoglobin Concent 35 g/dL (31-37) Red Cell Distribution Width 16.7 % (11.5-14.5) Platelet Count 303 x10^3/uL (140-400) Neutrophils (%) (Auto) 80 % (31-73) Lymphocytes (%) (Auto) 13 % (24-48) Monocytes (%) (Auto) 6 % (0-9) Eosinophils (%) (Auto) 0 % (0-3) Basophils (%) (Auto) 0 % (0-3) Neutrophils # (Auto) 8.2 x10^3uL (1.8-7.7) Lymphocytes # (Auto) 1.3 x10^3/uL (1.0-4.8) Monocytes # (Auto) 0.6 x10^3/uL (0.0-1.1) Eosinophils # (Auto) 0.0 x10^3/uL (0.0-0.7) Basophils # (Auto) 0.0 x10^3/uL (0.0-0.2) Segmented Neutrophils % 83 % (35-66) Band Neutrophils % 3 % (0-9) Lymphocytes % 11 % (24-48) Monocytes % 2 % (0-10) Metamyelocytes % 1 % (0-0) Platelet Estimate Adequate (ADEQUATE) Glucose (Fingerstick) 86 mg/dL (70-99) Microbiology 06/30/18 Urine Culture - Final, Complete 06/30/18 Urine Culture Result 1 (LINH) - Final, Complete Medications Current Medications Morphine Sulfate (Morphine Sulfate) 4 mg 1X ONCE IV Last administered on 06/29/18at 11:40; Start 06/29/18 at 11:30; Stop 06/29/18 at 11:31; Status DC Ondansetron HCl (Zofran) 4 mg 1X ONCE IV Last administered on 06/29/18at 11:44; Start 06/29/18 at 11:45; Stop 06/29/18 at 11:46; Status DC Ondansetron HCl (Zofran) 4 mg STK-MED ONCE .ROUTE ; Start 06/29/18 at 11:43; Stop 06/29/18 at 11:44; Status DC Ondansetron HCl (Zofran) 4 mg PRN Q8HRS PRN IV NAUSEA/VOMITING; Start 06/29/18 at 12:15; Stop 06/30/18 at 12:14; Status DC Morphine Sulfate (Morphine Sulfate) 4 mg 1X ONCE IV Last administered on 06/29/18 13:25; Start 06/29/18 at 13:30; Stop 06/29/18 at 13:31; Status DC Clonidine HCl (Catapres) 0.1 mg BID PO Last administered on 07/11/18 08:12; Start 06/29/18 at 21:00 Cyanocobalamin (Vitamin B-12) 1,000 mcg DAILY PO Last administered on 07/11/18 08:11; Start 06/29/18 at 16:30 Sevelamer Carbonate (Renvela) 800 mg TIDWMEALS PO Last administered on 07/11/18 08:12; Start 06/29/18 at 17:00 Hydrocortisone (Cortef) 20 mg DAILYWBKFT PO Last administered on 07/02/18 08:55; Start 06/29/18 at 16:30; Stop 07/02/18 at 09:53; Status DC Multivitamins (Thera M Plus) 1 tab DAILY PO Last administered on 07/11/18 08:12; Start 06/29/18 at 16:30 Olanzapine (ZyPREXA) 20 mg QHS PO Last administered on 07/04/18 19:50; Start 06/29/18 at 21:00; Stop 07/05/18 at 13:49; Status DC Pantoprazole Sodium (Protonix) 40 mg DAILYAC PO Last administered on 06/29/18 18:31; Start 06/29/18 at 16:30; Stop 07/01/18 at 07:33; Status DC Heparin Sodium (Porcine) (Heparin Sodium) 5,000 unit Q8HRS SQ Last administered on 07/11/18 05:54; Start 06/29/18 at 22:00 Acetaminophen (Tylenol) 650 mg 1X ONCE PO Last administered on 06/29/18 18:32; Start 06/29/18 at 16:30; Stop 06/29/18 at 16:31; Status DC Oxycodone/ Acetaminophen (Percocet 5/325) 1 tab PRN Q4HRS PRN PO PAIN Last administered on 07/11/18at 08:13; Start 06/29/18 at 20:00 Iohexol (Omnipaque 350 Mg/ml) 75 ml 1X ONCE IV Last administered on 06/29/18at 21:01; Start 06/29/18 at 21:00; Stop 06/29/18 at 21:03; Status DC Labetalol HCl (Normodyne Iv Push) 10 mg PRN Q10MIN PRN IVP HYPERTENSION, SEE COMMENTS Last administered on 07/07/18at 10:01; Start 06/29/18 at 21:15; Status Future Hold Acetaminophen (Tylenol) 650 mg PRN Q6HRS PRN PO TEMP > 100.4F; Start 06/29/18 at 21:15 Acetaminophen (Tylenol Supp) 650 mg PRN Q4HRS PRN IA TEMP > 100.4F; Start 06/29/18 at 21:15 Aspirin (Ecotrin) 325 mg DAILYWBKFT PO Last administered on 07/11/18at 08:11; Start 06/30/18 at 08:00 Aspirin (Aspirin Rectal Supp) 300 mg PRN DAILY PRN IA IF UNABLE TO TAKE PO; Start 06/29/18 at 21:15 Morphine Sulfate (Morphine Sulfate) 2 mg PRN Q2HR PRN IV SEVERE PAIN 7-10 Last administered on 07/10/18at 06:01; Start 06/29/18 at 22:30 Levetiracetam 500 mg/Dextrose 105 ml @ 420 mls/hr Q12HR IV Last administered on 07/11/18at 08:23; Start 06/30/18 at 00:00 Levetiracetam 1000 mg/Dextrose 110 ml @ 440 mls/hr 1X ONCE IV Last adm inistered on 06/30/18at 02:25; Start 06/30/18 at 02:30; Stop 06/30/18 at 02:44; Status DC Lorazepam (Ativan) 1 mg PRN Q2HRS PRN IV TREMORS; Start 06/30/18 at 02:00 Fosphenytoin Sodium 1390 mg/ Sodium Chloride 77.8 ml @ 311.2 mls/ hr 1X ONCE IV Last administered on 06/30/18at 04:44; Start 06/30/18 at 05:00; Stop 06/30/18 at 05:14; Status DC Propofol 100 ml @ As Directed STK-MED ONCE IV ; Start 06/30/18 at 05:58; Stop 06/30/18 at 05:59; Status DC Succinylcholine Chloride (Anectine) 200 mg STK-MED ONCE .ROUTE ; Start 06/30/18 at 05:59; Stop 06/30/18 at 06:00; Status DC Propofol 100 ml @ 1.39 mls/hr 1X ONCE IV Last administered on 06/30/18at 06:30; Start 06/30/18 at 06:30; Stop 07/01/18 at 17:31; Status DC Succinylcholine Chloride (Anectine) 200 mg 1X ONCE IV Last administered on 06/30/18at 06:21; Start 06/30/18 at 06:30; Stop 06/30/18 at 06:31; Status DC Propofol 100 ml @ 0 mls/hr CONT PRN IV SEE I/O RECORD Last administered on 07/03/18at 02:50; Start 06/30/18 at 06:30; Stop 07/05/18 at 15:46; Status DC Fentanyl Citrate 30 ml @ 0 mls/hr CONT PRN IV SEE PROTOCOL; Start 06/30/18 at 06:30; Stop 07/03/18 at 17:50; Status DC Midazolam HCl 100 ml @ 0 mls/hr CONT PRN IV SEE PROTOCOL; Start 06/30/18 at 06:30; Stop 07/03/18 at 17:50; Status DC Fosphenytoin Sodium (Cerebyx) 100 mg Q8HRS IV Last administered on 07/11/18at 05:54; Start 06/30/18 at 14:00 Hydrocortisone Sodium Succinate (Solu-CORTEF) 100 mg Q8HRS IV Last administered on 07/11/18at 05:52; Start 06/30/18 at 14:00 Lansoprazole (Prevacid) 30 mg DAILYAC NG Last administered on 07/11/18at 08:11; Start 07/01/18 at 07:30 Sodium Chloride 1,000 ml @ 1,000 mls/hr Q1H PRN IV hypotension; Start 07/01/18 at 08:00; Stop 07/01/18 at 18:00; Status DC Albumin Human 200 ml @ 200 mls/hr 1X PRN PRN IV Hypotension; Start 07/01/18 at 08:00; Stop 07/01/18 at 18:00; Status DC Acetaminophen (Tylenol) 500 mg 1X PRN PRN PO MILD PAIN / TEMP; Start 07/01/18 at 07:45; Stop 07/01/18 at 18:00; Status DC Diphenhydramine HCl (Benadryl) 25 mg 1X PRN PRN IV ITCHING; Start 07/01/18 at 07:45; Stop 07/01/18 at 18:00; Status DC Diphenhydramine HCl (Benadryl) 25 mg 1X PRN PRN IV ITCHING; Start 07/01/18 at 07:45; Stop 07/01/18 at 18:00; Status DC Sodium Chloride (Normal Saline Flush) 10 ml 1X PRN PRN IV AP catheter pack; Start 07/01/18 at 07:45; Stop 07/01/18 at 18:00; Status DC Sodium Chloride (Normal Saline Flush) 10 ml 1X PRN PRN IV CLERICAL OFFICE catheter pack; Start 07/01/18 at 07:45; Stop 07/01/18 at 18:00; Status DC Sodium Chloride 1,000 ml @ 400 mls/hr Q2H30M PRN IV PATENCY; Start 07/01/18 at 08:00; Stop 07/01/18 at 18:00; Status DC Info (PHARMACY MONITORING -- do not chart) 1 each PRN DAILY PRN MC SEE COMMENTS; Start 07/01/18 at 08:00; Stop 07/04/18 at 07:54; Status DC Gentamicin Sulfate (Gentak) 0.25 inch [id number] OU ; Start 07/02/18 at 23:00; Status Cancel Tobramycin Sulfate (Tobrex Ophth Soln) 2 drop Q4HRS OU Last administered on 07/05/18at 08:53; Start 07/03/18 at 00:00; Stop 07/05/18 at 13:05; Status DC Multi-Ingred Cream/Lotion/Oil/ Oint (Artificial Tears Eye Ointment) 1 juliette PRN Q1HR PRN OU DRY EYE; Start 07/03/18 at 18:45 Sodium Chloride 1,000 ml @ 1,000 mls/hr Q1H PRN IV hypotension; Start 07/04/18 at 07:47; Stop 07/04/18 at 13:46; Status DC Albumin Human 200 ml @ 200 mls/hr 1X PRN PRN IV Hypotension; Start 07/04/18 at 08:00; Stop 07/04/18 at 13:59; Status DC Acetaminophen (Tylenol) 500 mg 1X PRN PRN PO MILD PAIN / TEMP; Start 07/04/18 at 08:00; Stop 07/05/18 at 07:59; Status DC Diphenhydramine HCl (Benadryl) 25 mg 1X PRN PRN IV ITCHING; Start 07/04/18 at 08:00; Stop 07/05/18 at 07:59; Status DC Diphenhydramine HCl (Benadryl) 25 mg 1X PRN PRN IV ITCHING; Start 07/04/18 at 08:00; Stop 07/05/18 at 07:59; Status DC Sodium Chloride (Normal Saline Flush) 10 ml 1X PRN PRN IV AP catheter pack; Start 07/04/18 at 08:00; Stop 07/05/18 at 07:59; Status DC Sodium Chloride (Normal Saline Flush) 10 ml 1X PRN PRN IV CLERICAL OFFICE catheter pack; Start 07/04/18 at 08:00; Stop 07/05/18 at 07:59; Status DC Sodium Chloride 1,000 ml @ 400 mls/hr Q2H30M PRN IV PATENCY; Start 07/04/18 at 07:47; Stop 07/04/18 at 19:46; Status DC Info (PHARMACY MONITORING -- do not chart) 1 each PRN DAILY PRN MC SEE COMMENTS; Start 07/04/18 at 08:00; Stop 07/09/18 at 14:03; Status DC Ciprofloxacin (Ciloxan Ophth) 2 drop Q1H OU Last administered on 07/11/18at 12:10; Start 07/05/18 at 13:15 Benztropine Mesylate (Cogentin) 1 mg PRN BID PRN PO EXTRAPYRAMIDAL EFFECTS; Start 07/05/18 at 13:45 Hydroxyzine Pamoate (Vistaril) 50 mg TID PO Last administered on 07/11/18at 08:12; Start 07/05/18 at 14:00 Olanzapine (ZyPREXA) 30 mg QHS PO Last administered on 07/10/18at 20:38; Start 07/05/18 at 21:00 Divalproex Sodium (Depakote Er) 1,500 mg QHS PO Last administered on 07/10/18at 20:39; Start 07/05/18 at 21:00 Sodium Chloride 1,000 ml @ 1,000 mls/hr Q1H PRN IV hypotension; Start 07/06/18 at 06:30; Stop 07/06/18 at 06:35; Status DC Diphenhydramine HCl (Benadryl) 25 mg 1X PRN PRN IV ITCHING; Start 07/06/18 at 06:30; Stop 07/07/18 at 06:29; Status DC Diphenhydramine HCl (Benadryl) 25 mg 1X PRN PRN IV ITCHING; Start 07/06/18 at 06:30; Stop 07/07/18 at 06:29; Status DC Sodium Chloride 1,000 ml @ 400 mls/hr Q2H30M PRN IV PATENCY; Start 07/06/18 at 06:30; Stop 07/06/18 at 06:35; Status DC Info (PHARMACY MONITORING -- do not chart) 1 each PRN DAILY PRN MC SEE COMMENTS; Start 07/06/18 at 06:30 Metoprolol Tartrate (Lopressor) 25 mg BID PO Last administered on 07/11/18at 08:13; Start 07/08/18 at 21:00 Metoprolol Tartrate (Lopressor) 25 mg ONCE ONCE PO Last administered on 07/08/18at 06:39; Start 07/08/18 at 06:45; Stop 07/08/18 at 06:46; Status DC Sodium Chloride 1,000 ml @ 1,000 mls/hr Q1H PRN IV hypotension; Start 07/08/18 at 08:53; Stop 07/08/18 at 14:52; Status DC Albumin Human 200 ml @ 200 mls/hr 1X PRN PRN IV Hypotension; Start 07/08/18 at 09:00; Stop 07/08/18 at 14:59; Status DC Sodium Chloride (Normal Saline Flush) 10 ml 1X PRN PRN IV AP catheter pack; Start 07/08/18 at 09:00; Stop 07/09/18 at 08:59; Status DC Sodium Chloride (Normal Saline Flush) 10 ml 1X PRN PRN IV CLERICAL OFFICE catheter pack; Start 07/08/18 at 09:00; Stop 07/09/18 at 08:59; Status DC Sodium Chloride 1,000 ml @ 400 mls/hr Q2H30M PRN IV PATENCY; Start 07/08/18 at 08:53; Stop 07/08/18 at 20:52; Status DC Info (PHARMACY MONITORING -- do not chart) 1 each PRN DAILY PRN MC SEE COMMENTS; Start 07/08/18 at 09:00; Status UNV Info (PHARMACY MONITORING -- do not chart) 1 each PRN DAILY PRN MC SEE COMMENTS; Start 07/08/18 at 09:00; Status UNV Senna/Docusate Sodium (Senna Plus) 2 tab PRN BID PRN PO CONSTIPATION Last administered on 07/11/18at 08:11; Start 07/09/18 at 12:30 Polyethylene Glycol (miraLAX PACKET) 17 gm PRN BID PRN PO CONSTIPATION; Start 07/09/18 at 12:30 Sodium Chloride 1,000 ml @ 1,000 mls/hr Q1H PRN IV hypotension; Start 07/11/18 at 09:54; Stop 07/11/18 at 15:53 Albumin Human 200 ml @ 200 mls/hr 1X PRN PRN IV Hypotension; Start 07/11/18 at 10:00; Stop 07/11/18 at 15:59 Acetaminophen (Tylenol) 500 mg 1X PRN PRN PO MILD PAIN / TEMP; Start 07/11/18 at 10:00; Stop 07/12/18 at 09:59 Diphenhydramine HCl (Benadryl) 25 mg 1X PRN PRN IV ITCHING; Start 07/11/18 at 10:00; Stop 07/12/18 at 09:59 Diphenhydramine HCl (Benadryl) 25 mg 1X PRN PRN IV ITCHING; Start 07/11/18 at 10:00; Stop 07/12/18 at 09:59 Sodium Chloride (Normal Saline Flush) 10 ml 1X PRN PRN IV AP catheter pack; Start 07/11/18 at 10:00; Stop 07/12/18 at 09:59 Sodium Chloride (Normal Saline Flush) 10 ml 1X PRN PRN IV CLERICAL OFFICE catheter pack; Start 07/11/18 at 10:00; Stop 07/12/18 at 09:59 Sodium Chloride 1,000 ml @ 400 mls/hr Q2H30M PRN IV PATENCY; Start 07/11/18 at 09:54; Stop 07/11/18 at 21:53 Info (PHARMACY MONITORING -- do not chart) 1 each PRN DAILY PRN MC SEE COMMENTS; Start 07/11/18 at 10:00; Status UNV Hydralazine HCl (Apresoline) 50 mg 1X ONCE PO Last administered on 07/11/18at 11:40; Start 07/11/18 at 12:00; Stop 07/11/18 at 12:01; Status DC Active Scripts Active Clonidine Hcl 0.1 Mg Tablet 0.1 Mg PO BID [Pantoprazole] 40 MG Tablet.dr 40 Mg PO DAILYAC MDD 1 Renvela (Sevelamer Carbonate) 800 Mg Tablet 800 Mg PO TIDWMEALS MDD 1 Reported Depakote (Divalproex Sodium) 500 Mg Tablet.dr 1,500 Mg PO HS Hydroxyzine Hcl 50 Mg Tablet 50 Mg PO TID Olanzapine 10 Mg Tablet 30 Mg PO HS Ibuprofen 400 Mg Tablet 400 Mg PO PRN Q6HRS PRN Benztropine Mesylate 1 Mg Tablet 1 Tab PO BID PRN Haloperidol 10 Mg Tablet 20 Mg PO HS Multivitamins (Multivitamin) 1 Each Tablet 1 Tab PO DAILY Vitamin B-12 (Cyanocobalamin (Vitamin B-12)) 1,000 Mcg Tablet 1 Tab PO DAILY Cortef (Hydrocortisone) 20 Mg Tablet 20 Mg PO DAILY Vitals/I & O Vital Sign - Last 24 Hours 07/10/18 07/10/18 07/10/18 07/10/18 15:55 16:42 19:00 20:00 Temp 97.5 97.6 97.5 97.6 Pulse 70 76 Resp 18 18 B/P (MAP) 148/101 (117) 149/92 (111) Pulse Ox 94 O2 Delivery Room Air Room Air Room Air Room Air O2 Flow Rate 96.0 07/10/18 07/10/18 07/10/18 07/10/18 20:38 20:39 21:46 22:46 Pulse 76 76 Resp 18 18 B/P (MAP) 149/92 149/92 O2 Delivery Room Air 07/10/18 07/11/18 07/11/18 07/11/18 23:00 03:00 07:00 07:15 Temp 97.4 97.4 98.0 97.4 97.4 98.0 Pulse 68 69 70 Resp 18 18 16 B/P (MAP) 155/97 (116) 163/97 (119) 196/101 (132) Pulse Ox 93 93 94 O2 Delivery Room Air Room Air Room Air Room Air 07/11/18 07/11/18 07/11/18 07/11/18 08:12 08:13 08:13 09:17 Pulse 70 70 B/P (MAP) 196/101 196/101 O2 Delivery Room Air Room Air 07/11/18 11:40 Pulse 70 B/P (MAP) 189/106 Intake and Output 07/10/18 07/10/18 07/11/18 15:00 23:00 07:00 Intake Total 245 ml 150 ml Output Total 200 ml Balance 245 ml 150 ml -200 ml CLYDE ARECHIGA MD July 11, 2018 13:13
--- NOTE | 2018-07-11 13:15 | NUR ---
SUE following for discharge planning. Discussed with RN, SUE contacted [facility] transfer department to determine if pt can transfer there today, they advised the are at capacity. SUE spoke with Dr. Urbina and Dr. Galvez, they requested SW call again to advise this is an acute case and needs to be transferred as soon as possible. SW phone [facility] to discuss, [facility] advised they are going to try and get pt over there today, as they have some discharges pending. Pt currently in dialysis. SW received call from Wild at [facility], regarding whether pt can get to the [facility] for dialysis. SUE met with pt, pt reported he is fine with [facility], and will be staying in [place]. SUE returned Wild and Jaky's calls to advise. Jaky (ph: [phone]) at [facility] advised pt has a MWF chair time of 1500 and will need to know when pt will be discharging so she can schedule a time for pt to come and complete some paperwork. SUE will continue to follow. RN notified.
--- NOTE | 2018-07-11 13:26 | PDOC ---
SUBJECTIVE ROS Stable OBJECTIVE Vital Signs Vital Signs Date Time Temp Pulse Resp B/P (MAP) Pulse Ox O2 Delivery O2 Flow Rate FiO2 07/11/18 11:40 70 189/106 07/11/18 09:17 Room Air 07/11/18 07:00 98.0 16 94 98.0 07/10/18 15:55 96.0 I & 0 Intake and Output 07/11/18 07:00 Intake Total 395 ml Output Total 200 ml Balance 195 ml Intake Oral 395 ml Output Urine Total 200 ml # Voids 4 PHYSICAL EXAM Physical Exam General NAD , HEENT: OM moist Neck: Supple Lungs- CTA bilat CV RRR Ext- No LE edema Gu- No Pete Neuro- Alert xO x3 DIAGNOSIS/ASSESSMENT Assessment & Plan New ESRD - S/P Renal Bx 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 Seen on HD, tolerating well Continue as ordered, Dw Derrick Boat Runner SW for OP chair time Vein mapping and vascular consulted for AV access evaluation Good pasture's syndrome- post renal Bx No Obvious Lung involvement Anti GBM positive, 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 HTN - Controlled now Seizures - No recent Sz activity per neurology Posterior reversible encephalopathy syndrome,(PRES) Neurology following 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 Anemia - Hgb stable HEP B- Positive Ab, repeat negative [place]'s - On Hydrocortisone Per primary COMMENT/RELEVANT DATA Meds Current Medications Medications (Trade) Dose Ordered Sig/Essence Start Time Stop Time Status Last Admin Dose Admin Acetaminophen (Tylenol Supp) 650 mg PRN Q4HRS PRN 06/29/18 21:15 Acetaminophen (Tylenol) 500 mg 1X PRN PRN 07/11/18 10:00 07/12/18 09:59 Albumin Human 200 ml @ 200 mls/hr 1X PRN PRN 07/11/18 10:00 07/11/18 15:59 Aspirin (Aspirin Rectal Supp) 300 mg PRN DAILY PRN 06/29/18 21:15 Aspirin (Ecotrin) 325 mg DAILYWBKFT 06/30/18 08:00 07/11/18 08:11 325 MG Benztropine Mesylate (Cogentin) 1 mg PRN BID PRN 07/05/18 13:45 Ciprofloxacin (Ciloxan Ophth) 2 drop Q1H 07/05/18 13:15 07/11/18 12:10 2 DROP Clonidine HCl (Catapres) 0.1 mg BID 06/29/18 21:00 07/11/18 08:12 0.1 MG Cyanocobalamin (Vitamin B-12) 1,000 mcg DAILY 06/29/18 16:30 07/11/18 08:11 1,000 MCG Diphenhydramine HCl (Benadryl) 25 mg 1X PRN PRN 07/11/18 10:00 07/12/18 09:59 Divalproex Sodium (Depakote Er) 1,500 mg QHS 07/05/18 21:00 07/10/18 20:39 1,500 MG Fentanyl Citrate 30 ml @ 0 mls/hr CONT PRN 06/30/18 06:30 07/03/18 17:50 DC Fosphenytoin Sodium (Cerebyx) 100 mg Q8HRS 06/30/18 14:00 07/11/18 05:54 100 MG Fosphenytoin Sodium 1390 mg/ Sodium Chloride 77.8 ml @ 311.2 mls/ hr 1X ONCE 06/30/18 05:00 06/30/18 05:14 DC 06/30/18 04:44 311.2 MLS/HR Gentamicin Sulfate (Gentak) 0.25 inch [id number] 07/02/18 23:00 Cancel Heparin Sodium (Porcine) (Heparin Sodium) 5,000 unit Q8HRS 06/29/18 22:00 07/11/18 05:54 5,000 UNIT Hydralazine HCl (Apresoline) 50 mg 1X ONCE 07/11/18 12:00 07/11/18 12:01 DC 07/11/18 11:40 50 MG Hydrocortisone (Cortef) 20 mg DAILYWBKFT 06/29/18 16:30 07/02/18 09:53 DC 07/02/18 08:55 20 MG Hydrocortisone Sodium Succinate (Solu-CORTEF) 100 mg Q8HRS 06/30/18 14:00 07/11/18 05:52 100 MG Hydroxyzine Pamoate (Vistaril) 50 mg TID 07/05/18 14:00 07/11/18 08:12 50 MG Info (PHARMACY MONITORING -- do not chart) 1 each PRN DAILY PRN 07/11/18 10:00 UNV Iohexol (Omnipaque 350 Mg/ml) 75 ml 1X ONCE 06/29/18 21:00 06/29/18 21:03 DC 06/29/18 21:01 75 ML Labetalol HCl (Normodyne Iv Push) 10 mg PRN Q10MIN PRN 06/29/18 21:15 Future Hold 07/07/18 10:01 10 MG Lansoprazole (Prevacid) 30 mg DAILYAC 07/01/18 07:30 07/11/18 08:11 30 MG Levetiracetam 1000 mg/Dextrose 110 ml @ 440 mls/hr 1X ONCE 06/30/18 02:30 06/30/18 02:44 DC 06/30/18 02:25 440 MLS/HR Levetiracetam 500 mg/Dextrose 105 ml @ 420 mls/hr Q12HR 06/30/18 00:00 07/11/18 08:23 420 MLS/HR Lorazepam (Ativan) 1 mg PRN Q2HRS PRN 06/30/18 02:00 Metoprolol Tartrate (Lopressor) 25 mg ONCE ONCE 07/08/18 06:45 07/08/18 06:46 DC 07/08/18 06:39 25 MG Midazolam HCl 100 ml @ 0 mls/hr CONT PRN 06/30/18 06:30 07/03/18 17:50 DC Morphine Sulfate (Morphine Sulfate) 2 mg PRN Q2HR PRN 06/29/18 22:30 07/10/18 06:01 2 MG Multi-Ingred Cream/Lotion/Oil/ Oint (Artificial Tears Eye Ointment) 1 juliette PRN Q1HR PRN 07/03/18 18:45 Multivitamins (Thera M Plus) 1 tab DAILY 06/29/18 16:30 07/11/18 08:12 1 TAB Olanzapine (ZyPREXA) 30 mg QHS 07/05/18 21:00 07/10/18 20:38 30 MG Ondansetron HCl (Zofran) 4 mg PRN Q8HRS PRN 06/29/18 12:15 06/30/18 12:14 DC Oxycodone/ Acetaminophen (Percocet 5/325) 1 tab PRN Q4HRS PRN 06/29/18 20:00 07/11/18 08:13 1 TAB Pantoprazole Sodium (Protonix) 40 mg DAILYAC 06/29/18 16:30 07/01/18 07:33 DC 06/29/18 18:31 40 MG Polyethylene Glycol (miraLAX PACKET) 17 gm PRN BID PRN 07/09/18 12:30 Propofol 100 ml @ 0 mls/hr CONT PRN 06/30/18 06:30 07/05/18 15:46 DC 07/03/18 02:50 16.682 MLS/HR Senna/Docusate Sodium (Senna Plus) 2 tab PRN BID PRN 07/09/18 12:30 07/11/18 08:11 2 TAB Sevelamer Carbonate (Renvela) 800 mg TIDWMEALS 06/29/18 17:00 07/11/18 08:12 800 MG Sodium Chloride 1,000 ml @ 400 mls/hr Q2H30M PRN 07/11/18 09:54 07/11/18 21:53 Sodium Chloride (Normal Saline Flush) 10 ml 1X PRN PRN 07/11/18 10:00 07/12/18 09:59 Succinylcholine Chloride (Anectine) 200 mg 1X ONCE 06/30/18 06:30 06/30/18 06:31 DC 06/30/18 06:21 200 MG Tobramycin Sulfate (Tobrex Ophth Soln) 2 drop Q4HRS 07/03/18 00:00 07/05/18 13:05 DC 07/05/18 08:53 2 DROP Lab Laboratory Tests Test 07/11/18 05:58 07/11/18 11:22 White Blood Count 10.2 x10^3/uL (4.0-11.0) Red Blood Count 3.34 x10^6/uL (4.30-5.70) Hemoglobin 10.5 g/dL (13.0-17.5) Hematocrit 30.6 % (39.0-53.0) Mean Corpuscular Volume 92 fL (79-100) Mean Corpuscular Hemoglobin 32 pg (25-35) Mean Corpuscular Hemoglobin Concent 35 g/dL (31-37) Red Cell Distribution Width 16.7 % (11.5-14.5) Platelet Count 303 x10^3/uL (140-400) Neutrophils (%) (Auto) 80 % (31-73) Lymphocytes (%) (Auto) 13 % (24-48) Monocytes (%) (Auto) 6 % (0-9) Eosinophils (%) (Auto) 0 % (0-3) Basophils (%) (Auto) 0 % (0-3) Neutrophils # (Auto) 8.2 x10^3uL (1.8-7.7) Lymphocytes # (Auto) 1.3 x10^3/uL (1.0-4.8) Monocytes # (Auto) 0.6 x10^3/uL (0.0-1.1) Eosinophils # (Auto) 0.0 x10^3/uL (0.0-0.7) Basophils # (Auto) 0.0 x10^3/uL (0.0-0.2) Segmented Neutrophils % 83 % (35-66) Band Neutrophils % 3 % (0-9) Lymphocytes % 11 % (24-48) Monocytes % 2 % (0-10) Metamyelocytes % 1 % (0-0) Platelet Estimate Adequate (ADEQUATE) Glucose (Fingerstick) 86 mg/dL (70-99) Results All relevant outside records, renal labs, imaging studies, telemetry/EKG's were reviewed. EDEL ADKINS MD July 11, 2018 13:26
[2018-07-11] MEDS ORDERED: [UNRECOGNIZED DRUG - CODE] IV (16:01)
[2018-07-11] MEDS ORDERED: METO25TA4 PO (16:01)
[2018-07-11] MEDS ORDERED: [UNRECOGNIZED DRUG - CODE] OU (16:01)
[2018-07-11] MEDS ORDERED: ASPI325T11 PO (16:01)
[2018-07-11] MEDS ORDERED: HYDR100V IV (16:01)
[2018-07-11] MEDS ORDERED: CIPR2.5D OU (16:01)
[2018-07-11] MEDS ORDERED: LABE20DI IVP (16:01)
--- NOTE | 2018-07-11 16:02 | SNU/HH DC ---
DISCHARGE ORDERS DISCHARGE INFORMATION: FINAL DIAGNOSIS Problems Medical Problems: (1) Hypertension Status: Acute CONDITION ON DISCHARGE: Stable CODE STATUS: Code Status: Full POST DISCHARGE ORDERS: ACTIVITY ORDERS: Resume previous activity WEIGHT BEARING STATUS: No restrictions DIET AFTER DISCHARGE: Cardiac CHECKS AFTER DISCHARGE: CHECKS AFTER DISCHARGE: Check blood press - daily, Weigh Yourself Daily TREATMENT/EQUIPMENT ORDERS: Physical Therapy For: Evalulation/Treatment Occupational Therapy For: Evaluation/Treatment DISCHARGE MEDICATIONS: Home Meds Active Scripts Clonidine Hcl (CLONIDINE HCL) 0.1 Mg Tablet, 0.1 MG PO BID for high bp > 160/100, #60 TAB Prov:TIM FARRELL MD 06/27/18 [Pantoprazole] 40 MG TABLET. No Conflict Check, 40 MG PO DAILYAC for gerd MDD 1, #30 Prov:TIM FARRELL MD 06/27/18 Sevelamer Carbonate (RENVELA) 800 Mg Tablet, 800 MG PO TIDWMEALS for esrd MDD 1, #90 TAB Prov:TIM FARRELL MD 06/27/18 Reported Medications Divalproex Sodium (DEPAKOTE) 500 Mg Tablet.dr, 1500 MG PO HS for seizures, TAB 07/05/18 Hydroxyzine Hcl (HYDROXYZINE HCL) 50 Mg Tablet, 50 MG PO TID for antihistamine, TAB 07/05/18 Olanzapine (OLANZAPINE) 10 Mg Tablet, 30 MG PO HS for schizophrania, TAB 07/05/18 Ibuprofen (IBUPROFEN) 400 Mg Tablet, 400 MG PO PRN Q6HRS PRN for INFLAMMATION, TAB 07/05/18 Benztropine Mesylate (BENZTROPINE MESYLATE) 1 Mg Tablet, 1 TAB PO BID PRN for [place] N, #1 TAB 07/05/18 Haloperidol (HALOPERIDOL) 10 Mg Tablet, 20 MG PO HS for mental disorder, TAB 07/05/18 Multivitamin (MULTIVITAMINS) 1 Each Tablet, 1 TAB PO DAILY for supplement, #90 TAB 3 Refills 06/23/18 Cyanocobalamin (Vitamin B-12) (VITAMIN B-12) 1,000 Mcg Tablet, 1 TAB PO DAILY for supplement, #30 TAB 2 Refills 06/23/18 Hydrocortisone (CORTEF) 20 Mg Tablet, 20 MG PO DAILY for addinsons disease, TAB 06/22/18 Discontinued Reported Medications Olanzapine (OLANZAPINE) 20 Mg Tablet, 20 MG PO QHS for sleeping , TAB 06/23/18 CLYDE ARECHIGA MD July 11, 2018 16:02
--- NOTE | 2018-07-11 16:07 | NUR ---
Message sent to DENICE Izaguirre Re: pt tx to [facility] today.
--- NOTE | 2018-07-11 16:14 | NUR ---
Message left for Dr. Galvez Re; pt tx to [facility] today.
--- NOTE | 2018-07-11 16:16 | PDOC3 ---
Discharge Summary Visit Information Date of Admission: June 29, 2018 Date of Discharge: July 11, 2018 Final Diagnosis Problems Medical Problems: (1) Hypertension Status: Acute Brief Hospital Course Allergies Allergies Coded Allergies Type Severity Reaction Last Updated Verified Penicillins Allergy Intermediate 07/05/18 Yes tramadol Allergy Intermediate 07/05/18 Yes I S O L A T I O N *CONTACT* Allergy Unknown 07/04/18 Yes Vital Signs Vital Signs Date Time Temp Pulse Resp B/P (MAP) Pulse Ox O2 Delivery O2 Flow Rate FiO2 07/11/18 15:23 Room Air 07/11/18 11:40 70 189/106 07/11/18 11:00 98.2 16 95 98.2 07/10/18 15:55 96.0 Lab Results Laboratory Tests Test 07/10/18 05:35 07/11/18 05:58 07/11/18 11:22 White Blood Count 11.0 x10^3/uL (4.0-11.0) 10.2 x10^3/uL (4.0-11.0) Red Blood Count 3.24 x10^6/uL (4.30-5.70) 3.34 x10^6/uL (4.30-5.70) Hemoglobin 10.4 g/dL (13.0-17.5) 10.5 g/dL (13.0-17.5) Hematocrit 29.6 % (39.0-53.0) 30.6 % (39.0-53.0) Mean Corpuscular Volume 91 fL (79-100) 92 fL (79-100) Mean Corpuscular Hemoglobin 32 pg (25-35) 32 pg (25-35) Mean Corpuscular Hemoglobin Concent 35 g/dL (31-37) 35 g/dL (31-37) Red Cell Distribution Width 16.8 % (11.5-14.5) 16.7 % (11.5-14.5) Platelet Count 283 x10^3/uL (140-400) 303 x10^3/uL (140-400) Neutrophils (%) (Auto) 81 % (31-73) 80 % (31-73) Lymphocytes (%) (Auto) 11 % (24-48) 13 % (24-48) Monocytes (%) (Auto) 7 % (0-9) 6 % (0-9) Eosinophils (%) (Auto) 0 % (0-3) 0 % (0-3) Basophils (%) (Auto) 0 % (0-3) 0 % (0-3) Neutrophils # (Auto) 8.9 x10^3uL (1.8-7.7) 8.2 x10^3uL (1.8-7.7) Lymphocytes # (Auto) 1.2 x10^3/uL (1.0-4.8) 1.3 x10^3/uL (1.0-4.8) Monocytes # (Auto) 0.8 x10^3/uL (0.0-1.1) 0.6 x10^3/uL (0.0-1.1) Eosinophils # (Auto) 0.0 x10^3/uL (0.0-0.7) 0.0 x10^3/uL (0.0-0.7) Basophils # (Auto) 0.0 x10^3/uL (0.0-0.2) 0.0 x10^3/uL (0.0-0.2) Segmented Neutrophils % 83 % (35-66) Band Neutrophils % 3 % (0-9) Lymphocytes % 11 % (24-48) Monocytes % 2 % (0-10) Metamyelocytes % 1 % (0-0) Platelet Estimate Adequate (ADEQUATE) Glucose (Fingerstick) 86 mg/dL (70-99) Laboratory Tests Test 07/11/18 05:58 07/11/18 11:22 White Blood Count 10.2 x10^3/uL (4.0-11.0) Red Blood Count 3.34 x10^6/uL (4.30-5.70) Hemoglobin 10.5 g/dL (13.0-17.5) Hematocrit 30.6 % (39.0-53.0) Mean Corpuscular Volume 92 fL (79-100) Mean Corpuscular Hemoglobin 32 pg (25-35) Mean Corpuscular Hemoglobin Concent 35 g/dL (31-37) Red Cell Distribution Width 16.7 % (11.5-14.5) Platelet Count 303 x10^3/uL (140-400) Neutrophils (%) (Auto) 80 % (31-73) Lymphocytes (%) (Auto) 13 % (24-48) Monocytes (%) (Auto) 6 % (0-9) Eosinophils (%) (Auto) 0 % (0-3) Basophils (%) (Auto) 0 % (0-3) Neutrophils # (Auto) 8.2 x10^3uL (1.8-7.7) Lymphocytes # (Auto) 1.3 x10^3/uL (1.0-4.8) Monocytes # (Auto) 0.6 x10^3/uL (0.0-1.1) Eosinophils # (Auto) 0.0 x10^3/uL (0.0-0.7) Basophils # (Auto) 0.0 x10^3/uL (0.0-0.2) Segmented Neutrophils % 83 % (35-66) Band Neutrophils % 3 % (0-9) Lymphocytes % 11 % (24-48) Monocytes % 2 % (0-10) Metamyelocytes % 1 % (0-0) Platelet Estimate Adequate (ADEQUATE) Glucose (Fingerstick) 86 mg/dL (70-99) Brief Hospital Course 47-year-old male w/ PMHx Arron's disease, Bipolar/Schizophrenia recently moved from [place] (is homeless) who was admitted with dizziness, falls, vomiting, found to have acute kidney injury. He underwent renal biopsy positive for anti- glomerular membrane antibody disease (Goodpasture's), was placed on dialysis and left the hospital to be with his girlfriend after admission 06/22-06/27, returned on 06/29/2018 because he was unable to complete dialysis, did not have a chair, apparently had insurance pending. The patient complained of some blurred vision initially on admission, generalized weakness, especially in the legs. Stat CT of the head was obtained. CT angiogram was also reviewed. The patient's initial head CT revealed some new findings of hypodensity throughout the bilateral posterior cerebral hemisphere compatible with acute or subacute infarct. patient started on ASA therapy. There was also some evidence of posterior reversible encephalopathy syndrome which was confirmed on MRI. There was no confirmed hemorrhage seen. The patient was treated for the above. He started having seizures, loaded on fosphenytoin and keppra and was intubated with CXR confirming bilateral pulmonary edema, had red frothy sputum, though no confirmed pulmonary hemorrhage. Seen by pulm. He was intubated then extubated 07/03/18, has been recovering from PRES since. His girlfriend has been bedside frequently. Hypertensive emergency and subsequently PRES: controlling BP with BB therapy, clonidine, prn EDGAR, prn labetolol neuro following Seizure disorder and loss of airway requiring ICU stay and intubation during his admission on 06/30/18 - extubation 07/03/18 - cont seizure meds. neuro following. loaded with phosphen, continued on keppra Vision loss with corneal cloudiness (central + peripheral etiologies ?) recent onset, this was documented on admission by neurology on 06/29/18 and not again until 07/05/18, started on Tobramycin, ophthalmology consultation has been requested but not available at our institution, verbal recommendation from local promotion manager greatly appreciated. Most likely infection associated to the use of contact lenses as they had been retrieved from the patients eyes. blurry vision continues to both eyes. tobra dc'd and continued on cipro ophthalmic Metabolic encephalopathy - Resolved ESRD, new - secondary to Good Pasture with right renal biopsy proven on 06/26, then anti-glomerular basement membrane antibodies positive on 06/30/18. Was ESRD on 06/22, discharged on 06/27, readmitted on 06/29. Hep B immune status confirmed. He needs a dialysis chair. Clearly he had medicaid and medicare applications completed on prior visit 06/22/2018, was refused by [facility] for chair time 03/25 lack of payor source, apparently UTI? - negative culture Pleural effusion, resolved Anemia. Hypocalcemia. Schizophrenia Bipolar disorder. Compliance difficulties Arron's disease - was on cortef prior to admission. currently on hydrocortisone [facility] has accepted the patient in transfer for urgent optho eval. needs neuro consult for management of seizure d/o. patient stable for transfer to [facility]. Discharge Information Condition at Discharge: Stable Disposition/Orders: D/C to Another Facility ([facility]) Scheduled Aspirin (Aspirin Ec) 325 Mg Tablet., 325 MG PO DAILYWBKFT for primary ppx for 30 Days, #30 Prescribed by: CLYDE ARECHIGA MD on 07/11/18 1601 Ciprofloxacin Hcl (Ciprofloxacin Hcl) 2.5 Ml Drops, 2 DROP OU Q1H for decreased vision for 10 Days Prescribed by: CLYDE ARECHIGA MD on 07/11/18 1601 Clonidine Hcl (Clonidine Hcl) 0.1 Mg Tablet, 0.1 MG PO BID for high bp > 160/100, #60 Prescribed by: TIM FARRELL on 06/27/18814 Last Action: Continued on 06/29/181521 by JOSE LUCERO MD Cyanocobalamin (Vitamin B-12) (Vitamin B-12) 1,000 Mcg Tablet, 1 TAB PO DAILY for supplement, #30 Ref 2 (Reported) Entered as Reported by: Zina Winter on 06/23/18824 Last Action: Continued on 06/29/181521 by JOSE LUCERO MD Divalproex Sodium (Depakote) 500 Mg Tablet.dr, 1,500 MG PO HS for seizures, (Reported) Entered as Reported by: SOHAIL ZAMORA on 07/05/181239 Last Action: Converted on 07/05/18 1346 by SOHAIL ZAMORA Fosphenytoin Sodium (Fosphenytoin Sodium) 100 Mg Pe/2 Ml Vial, 100 MG IV Q8HRS for seizure for 10 Days Prescribed by: CLYDE ARECHIGA MD on 07/11/18 1601 Haloperidol (Haloperidol) 10 Mg Tablet, 20 MG PO HS for mental disorder, (Reported) Entered as Reported by: SOHAIL ZAMORA on 07/05/181239 Last Action: New Order on 07/05/181239 by SOHAIL ZAMORA Hydrocortisone Sod Succ/Pf (Solu-Cortef 100 Mg Vial) 100 Mg/2 Ml Vial, 100 MG IV Q8HRS for addision's dz for 7 Days Prescribed by: CLYDE ARECHIGA MD on 07/11/18 1601 Hydroxyzine Hcl (Hydroxyzine Hcl) 50 Mg Tablet, 50 MG PO TID for antihistamine, (Reported) Entered as Reported by: SOHAIL ZAMORA on 07/05/181239 Last Action: Converted on 07/05/18 1338 by SOHAIL ZAMORA Metoprolol Tartrate (Metoprolol Tartrate) 25 Mg Tablet, 25 MG PO BID for htn for 30 Days, #60 Prescribed by: CLYDE ARECIHGA MD on 07/11/18 1601 Multivitamin (Multivitamins) 1 Each Tablet, 1 TAB PO DAILY for supplement, #90 Ref 3 (Reported) Entered as Reported by: Zina Winter on 06/23/18824 Last Action: Converted on 06/29/181521 by JOSE LUCERO MD Olanzapine (Olanzapine) 10 Mg Tablet, 30 MG PO HS for schizophrania, (Reported) Entered as Reported by: SOHAIL ZAMORA on 07/05/18 124 Last Action: Converted on 07/05/181337 by SOHAIL ZAMORA Sevelamer Carbonate (Renvela) 800 Mg Tablet, 800 MG PO TIDWMEALS for esrd MDD 1, #90 Prescribed by: TIM FARRELL on 06/27/18814 Last Action: Continued on 06/29/181521 by JOSE LUCERO MD [Pantoprazole] 40 MG TABLET.DR, 40 MG PO DAILYAC for gerd MDD 1, #30 Prescribed by: TIM FARRELL on 06/27/18814 Last Action: Converted on 06/29/181521 by JOSE LUCERO MD Scheduled PRN Benztropine Mesylate (Benztropine Mesylate) 1 Mg Tablet, 1 TAB PO BID PRN for PRN, #1 (Reported) Entered as Reported by: SOHAIL ZAMORA on 07/05/181239 Last Action: Converted on 07/05/181337 by SOHAIL ZAMORA Labetalol Hcl (Labetalol Hcl) 20 Mg/4 Ml Disp.syrin, 10 MG IVP PRN Q10MIN PRN for HYPERTENSION, SEE COMMENTS for 5 Days Prescribed by: CLYDE ARECHIGA MD on 07/11/18 1601 Mineral Oil/Petrolatum,White (Stye Lubricant Eye Ointment) 3.5 Gm Oint...g., 1 BLAINE OU PRN Q1HR PRN for DRY EYE for 5 Days Prescribed by: CLYDE ARECHIGA MD on 07/11/18 1601 Discontinued Medications Hydrocortisone (Cortef) 20 Mg Tablet, 20 MG PO DAILY for addinsons disease, (Reported) Entered as Reported by: ANGELI PAK on 06/22/181801 Last Action: Converted on 06/29/181521 by JOSE LUCERO MD Ibuprofen (Ibuprofen) 400 Mg Tablet, 400 MG PO PRN Q6HRS PRN for INFLAMMATION, (Reported) Entered as Reported by: SOHAIL ZAMORA on 07/05/18 1240 Last Action: New Order on 07/05/18 1240 by SOHAIL ZAMORA Olanzapine (Olanzapine) 20 Mg Tablet, 20 MG PO QHS for sleeping , (Reported) Entered as Reported by: Zina Winter on 06/23/18 0718 Last Action: Discontinued on 07/05/18 1338 by CLYDE WOODS MD July 11, 2018 16:16
--- NOTE | 2018-07-11 16:20 | NUR ---
Dr. Ferrer paged re: pt's tx to [facility] today.
--- NOTE | 2018-07-11 17:25 | PDOC ---
PROGRESS NOTES Assessment Assessment PRES. Vision loss with corneal cloudiness, infection (peripheral etiologies + central) Hypertensive emergency, BP 212/133 mmHg. Seizure. Headache. Metabolic encephalopathy. Vision loss. Petechial cerebral hemorrhage. Renal failure. UTI? Pleural effusion. Anemia. Hypocalcemia. Schizophrenia. Bipolar disorder. Arron's disease. RECOMMENDATIONS/PLAN: ASA 325 mg daily. Continue ophthalmological treatment, antibiotic eye drops. Continue Keppra 500 mg bid. Treat medical diseases. Continue dialysis. Transfer to other medical facility with in-house ophthalmology services. Tried transfer multiple times in the past several days at least 5 to 6 days, but has no hospital accept transfer. , [facility] and [facility] all declined transfer in the past several days. Tried [facility] since 07/10/19, and have [facility] to follow up with [facility] for transfer and eventually transfer was accepted on 07/11/18. OT/PT. Past Medical History GI: Hemorrhoids, Other (diarrhea) Heme/Onc: Cancer (thyroid (Para?)) Psych: Anxiety, Depression, Schizophrenia Renal/: Acute renal failure Endocrine: Other (Sequatchie's disease) Past Surgical History Cholecystectomy, Other (cervical fusion, left knee, parathyroidectomy) Family History Hypertension Social History He is homeless, he denied earlier having use of alcohol, tobacco, or street sailaja gs. ROS Negative for fever, chills, weight loss, shortness of breath, chest pain, indigestion, hematochezia, melena, and dysuria. Full 14-point review of systems is negative. ALLERGY: NKDA MEDICATIONS: Refer to MAR PHYSICAL EXAMINATION: General appearance in subacute distress. HEENT: Normocephalic and nontraumatic. Eyes, nose, ears, and throat are unremarkable. Neck is supple. No lymphadenopathy. No Crepitus. Cardiovascular: S1, S2, regular rate and rhythm. Pulmonary: Decreased to auscultation bilaterally. Abdomen: Bowel sounds are positive. Extremities: No rash, lesions, or edema. No restriction of range of motion NEUROLOGICAL EXAMINATION: Awake. Eyes closed all the time. Partially oriented to time, but knew place and his familiar person. PERRL. EOMI. Corneal cloudiness. Conjunctivitis. Sclera redness and congestion. (Patient stated his eyes have been itching since admission.) Only has light perception and sight for close finger movements and finger count. CN: no focal findings. Muscle tone: within normal. Muscle strength: 4+. DTR: 1-2 Plantar reflex: Neutral response bilaterally Gait: Not examined in bed. Sensory exam: Withdraw response noted. Not able to access cerebellar signs this time. F-T-N test not performed due to not able to follow commands. Objective Objective Vital Signs Date Time Temp Pulse Resp B/P (MAP) Pulse Ox O2 Delivery O2 Flow Rate FiO2 07/11/18 16:28 Room Air 07/11/18 11:40 70 189/106 07/11/18 11:00 98.2 16 95 98.2 07/10/18 15:55 96.0 Intake and Output 07/11/18 07:00 Intake Total 395 ml Output Total 200 ml Balance 195 ml Intake Oral 395 ml Output Urine Total 200 ml # Voids 4 Vitals Signs Vitals VS - Last 72 Hours, by Label Date Time Temp Pulse Resp B/P (MAP) Pulse Ox O2 Delivery O2 Flow Rate FiO2 07/11/18 16:28 Room Air 07/11/18 15:23 Room Air 07/11/18 11:40 70 189/106 07/11/18 11:00 98.2 70 16 189/106 (133) 95 Room Air 98.2 07/11/18 08:13 70 196/101 07/11/18 08:13 Room Air 07/11/18 08:12 70 196/101 07/11/18 07:15 Room Air 07/11/18 07:00 98.0 70 16 196/101 (132) 94 Room Air 98.0 07/11/18 03:00 97.4 69 18 163/97 (119) 93 Room Air 97.4 07/10/18 23:00 97.4 68 18 155/97 (116) 93 Room Air 97.4 07/10/18 22:46 18 07/10/18 21:46 18 Room Air 07/10/18 20:39 76 149/92 07/10/18 20:38 76 149/92 07/10/18 20:00 Room Air 07/10/18 19:00 97.6 76 18 149/92 (111) 94 Room Air 97.6 07/10/18 16:42 Room Air 07/10/18 15:55 97.5 70 18 148/101 (117) Room Air 96.0 97.5 07/10/18 12:38 Room Air 07/10/18 11:00 97.7 85 17 159/97 (117) 93 Room Air 97.7 07/10/18 08:41 Room Air 07/10/18 08:00 Room Air 07/10/18 07:42 77 169/96 07/10/18 07:41 77 169/96 07/10/18 07:00 97.8 80 18 169/96 (120) 92 Room Air 97.8 Laboratory Laboratory Laboratory Tests Test 07/11/18 05:58 07/11/18 11:22 White Blood Count 10.2 x10^3/uL (4.0-11.0) Red Blood Count 3.34 x10^6/uL (4.30-5.70) Hemoglobin 10.5 g/dL (13.0-17.5) Hematocrit 30.6 % (39.0-53.0) Mean Corpuscular Volume 92 fL (79-100) Mean Corpuscular Hemoglobin 32 pg (25-35) Mean Corpuscular Hemoglobin Concent 35 g/dL (31-37) Red Cell Distribution Width 16.7 % (11.5-14.5) Platelet Count 303 x10^3/uL (140-400) Neutrophils (%) (Auto) 80 % (31-73) Lymphocytes (%) (Auto) 13 % (24-48) Monocytes (%) (Auto) 6 % (0-9) Eosinophils (%) (Auto) 0 % (0-3) Basophils (%) (Auto) 0 % (0-3) Neutrophils # (Auto) 8.2 x10^3uL (1.8-7.7) Lymphocytes # (Auto) 1.3 x10^3/uL (1.0-4.8) Monocytes # (Auto) 0.6 x10^3/uL (0.0-1.1) Eosinophils # (Auto) 0.0 x10^3/uL (0.0-0.7) Basophils # (Auto) 0.0 x10^3/uL (0.0-0.2) Segmented Neutrophils % 83 % (35-66) Band Neutrophils % 3 % (0-9) Lymphocytes % 11 % (24-48) Monocytes % 2 % (0-10) Metamyelocytes % 1 % (0-0) Platelet Estimate Adequate (ADEQUATE) Glucose (Fingerstick) 86 mg/dL (70-99) Microbiology 06/30/18 Urine Culture - Final, Complete 06/30/18 Urine Culture Result 1 (LINH) - Final, Complete Medication Medications Current Medications Acetaminophen (Tylenol) 500 mg 1X PRN PRN PO MILD PAIN / TEMP; Start 07/11/18 at 10:00; Stop 07/12/18 at 09:59 Albumin Human 200 ml @ 200 mls/hr 1X PRN PRN IV Hypotension; Start 07/11/18 at 10:00; Stop 07/11/18 at 15:59; Status DC Diphenhydramine HCl (Benadryl) 25 mg 1X PRN PRN IV ITCHING; Start 07/11/18 at 10:00; Stop 07/12/18 at 09:59 Diphenhydramine HCl (Benadryl) 25 mg 1X PRN PRN IV ITCHING; Start 07/11/18 at 10:00; Stop 07/12/18 at 09:59 Hydralazine HCl (Apresoline) 50 mg 1X ONCE PO Last administered on 07/11/18at 11:40; Start 07/11/18 at 12:00; Stop 07/11/18 at 12:01; Status DC Info (PHARMACY MONITORING -- do not chart) 1 each PRN DAILY PRN MC SEE COMMENTS; Start 07/11/18 at 10:00; Status UNV Sodium Chloride 1,000 ml @ 400 mls/hr Q2H30M PRN IV PATENCY; Start 07/11/18 at 09:54; Stop 07/11/18 at 21:53 Sodium Chloride 1,000 ml @ 1,000 mls/hr Q1H PRN IV hypotension; Start 07/11/18 at 09:54; Stop 07/11/18 at 15:53; Status DC Sodium Chloride (Normal Saline Flush) 10 ml 1X PRN PRN IV AP catheter pack; Start 07/11/18 at 10:00; Stop 07/12/18 at 09:59 Sodium Chloride (Normal Saline Flush) 10 ml 1X PRN PRN IV THERAPY TECH catheter pack; Start 07/11/18 at 10:00; Stop 07/12/18 at 09:59 Comment Review of Relevant I have reviewed the following items medardo (where applicable) has been applied. ROSHNI BASHIR MD July 11, 2018 17:25
--- NOTE | 2018-07-11 17:26 | NUR ---
Dr. Ferrer returned call, notified of pt tx to [facility].
--- NOTE | 2018-07-11 19:20 | NUR ---
EMS transport here ,pt DC to [facility].
== END 2018-07-11 19:20 | disposition short-term general hospital (02) | DRG 64 ==
LOC: ER 10:11 → 6 SOUTH 12:05 → 1 WEST ICU 23:30 → 6 SOUTH 07-04 12:38 → 4 NORTH 07-07 23:49
PROVIDERS: ADMIT Family Medicine; ATTEND Family Medicine
PROC: 5A1945Z Respiratory Ventilation, 24-96 Consecutive Hours (ICD-10-PCS; principal; 2018-06-30)
PROC: 0BH17EZ Insertion of Endotracheal Airway into Trachea, Via Natural or Artificial Opening (ICD-10-PCS; 2018-06-30)
PROC: 5A1D70Z Performance of Urinary Filtration, Intermittent, Less than 6 Hours Per Day (ICD-10-PCS; 2018-07-01)
PROC: 5A1D70Z Performance of Urinary Filtration, Intermittent, Less than 6 Hours Per Day (ICD-10-PCS; 2018-07-04)
PROC: 5A1D70Z Performance of Urinary Filtration, Intermittent, Less than 6 Hours Per Day (ICD-10-PCS; 2018-07-06)
PROC: 5A1D70Z Performance of Urinary Filtration, Intermittent, Less than 6 Hours Per Day (ICD-10-PCS; 2018-07-08)
PROC: 5A1D70Z Performance of Urinary Filtration, Intermittent, Less than 6 Hours Per Day (ICD-10-PCS; 2018-07-11)
DX: I61.9 Nontraumatic intracerebral hemorrhage, unspecified (principal); I67.83 Posterior reversible encephalopathy syndrome; J96.00 Acute respiratory failure, unspecified whether with hypoxia or hypercapnia; N18.6 End stage renal disease; G93.41 Metabolic encephalopathy; N17.9 Acute kidney failure, unspecified; I16.1 Hypertensive emergency; B19.10 Unspecified viral hepatitis B without hepatic coma; E27.1 Primary adrenocortical insufficiency; I12.0 Hypertensive chronic kidney disease with stage 5 chronic kidney disease or end stage renal disease; J90 Pleural effusion, not elsewhere classified; M31.0 Hypersensitivity angiitis; E83.51 Hypocalcemia; E87.6 Hypokalemia; F17.200 Nicotine dependence, unspecified, uncomplicated; F20.9 Schizophrenia, unspecified; F31.9 Bipolar disorder, unspecified; F41.9 Anxiety disorder, unspecified; G40.909 Epilepsy, unspecified, not intractable, without status epilepticus; H54.61 Unqualified visual loss, right eye, normal vision left eye; K21.9 Gastro-esophageal reflux disease without esophagitis; K59.00 Constipation, unspecified; Z59.0 Homelessness; Z79.82 Long term (current) use of aspirin; Z79.899 Other long term (current) drug therapy; Z82.49 Family history of ischemic heart disease and other diseases of the circulatory system; Z85.858 Personal history of malignant neoplasm of other endocrine glands; Z90.49 Acquired absence of other specified parts of digestive tract; Z91.14 Patient's other noncompliance with medication regimen; Z91.15 Patient's noncompliance with renal dialysis; Z91.19 Patient's noncompliance with other medical treatment and regimen; Z99.2 Dependence on renal dialysis; D63.1 Anemia in chronic kidney disease
CPT/HCPCS: 36415; 36600; 70450; 70496; 70498; 70551; 71045; 74018; 80048; 80053; 80061; 80069; 80185; 81001; 82553; 82805; 82962; 83520; 83690; 84484; 85007; 85025; 85027; 85610; 85651; 85730; 86021; 87086; 87641; 93005; 93306; 94002; 94003; 94760; 95816; 96361; 96374; 96375; J0330; J1644; J1720; J1953; J2270; J2405; J2704; J3490; Q0177; Q2009; Q9967; 92526; 92610; 97110; 97116; 97530; 97535; 99285-25